=== PATIENT | male | born 1955 | race Caucasian/White ===

== ENCOUNTER 2019-12-28 10:32 | Emergency (ER) | payer OTHER, SELFPAY ==
[2019-12-28 10:42] VITALS: BP 138/59; PULSE 72; RESP 20; O2SAT 92; BMI 33.5
[2019-12-28 11:06] VITALS: RESP 18
--- NOTE | 2019-12-28 11:07 | ED_ITS ---
Entered by Destiny Gavin, acting as scribe for Henry Coles MD, [facility] Dec 28, 2019 10:32 HPI - Extremity Problem General: Chief complaint: Extremity Problem,Nontraumatic Stated complaint: Right arm no controll Time Seen by Provider: 12/28/19 11:07 Source: patient and RN notes reviewed Mode of arrival: ambulatory Limitations: no limitations History of Present Illness: HPI Narrative: 64 yo male presents to ED with complaints of R upper extremity pain, numbness and tingling. He said has no control over his arm when it shakes. He said it was not bad at first but it has worsened every day since that time. He said it begins with his arm jumping around, it will curl up and his fingers will layer over themselves. He said he has pain in his wrist and fingers when they begin to curl up. He denies having a stroke but he does have 3 stents in his heart and 6 stents in his leg. Complaint: extremity pain (R upper) Onset (ago): day(s) (5) Pain Consistency: constant Location: right and upper extremity Quality: aching Radiation: none Relieving factors: nothing Exacerbating factors: nothing Associated symptoms: Reports no associated symptoms and chest pain; Deny fever(s) or rash Review of Systems General: Reports: 10 or more systems reviewed and unremarkable except in HPI and below Const: Denies: fever, chills or body aches Eyes: Reports: blind spots; Denies: change in vision or blurry vision ENMT: Denies: throat pain, enlarged tonsils, painful swallowing, hoarseness, mouth pain or swelling of lips/tongue Card: Reports: chest pain; Denies: palpitations, irregular heart rhythm, edema or swelling of feet/ankles Resp: Denies: shortness of breath or productive cough GI: Denies: abdominal pain, nausea or vomiting : Denies: flank pain, painful urination, urinary frequency, urinary urgency or urinary hesitancy Musc: Denies: neck pain, back pain or extremity swelling Skin/Breast: Denies: rash, itching or redness Neuro: Denies: headache, numbness in extremities or weakness in extremities Endo: Denies: excessive urination, excessive thirst or tired all the time PFS ED PFSH: Social History Smoking and tobacco status: current some day smoker Physical Exam Const: COMMON NORMALS: no apparent distress, average body habitus, oriented x3, no limitations, healthy appearing, alert and well nourished HENMT: COMMON NORMALS: normocephalic, head/scalp atraumatic and moist oral mucous membranes HEAD & SCALP: normocephalic and atraumatic Eye: COMMON NORMALS: PERRL, EOMs intact bilaterally, conjunctivae normal and no scleral icterus CONJUNCTIVA: Yes conjunctivae normal PUPIL: Yes PERRL Neck/C-Spine: COMMON NORMALS: full ROM, supple, no meningeal signs, no JVD and no carotid bruits Chest: COMMONS NORMALS: inspection of chest normal and palpation of chest normal Resp: COMMON NORMALS: normal respiratory effort, no retractions, no use of accessory muscles, clear to auscultation bilaterally and percussion normal AUSCULTATION: clear to auscultation bilaterally and wheezes PERCUSSION: percussion normal Cardio: COMMON NORMALS: no JVD, regular rate, regular rhythm, S1 normal heart sound, S2 normal heart sound, no gallops, no clicks, no murmurs, no rub and peripheral pulses 2+ throughout RATE: regular rate RHYTHM: regular rhythm HEART SOUNDS: S1 normal and S2 normal PERIPHERAL PULSES: pulses 2+ throughout GI: COMMON NORMALS: normal to inspection, nondistended, normoactive bowel sounds, soft to palpation, non-tender, no hepatosplenomegaly, no masses and no bruits PALPATION: Yes soft and Yes no hepatosplenomegaly : COMMON NORMALS: Yes no CVA tenderness BLADDER/KIDNEY EXAM: Yes no CVA tenderness Back/Pelvis: COMMON NORMALS: no CVA tenderness Extremity: COMMON NORMALS: normal to inspection, full ROM, normal capillary refill, no calf tenderness and no pedal edema OTHER: during examination the patient had spasmodic/tremor-like movements of his right upper extremity. Fingers spasms which look like carpopedal spasm Neuro: COMMON NORMALS: oriented x3 SENSORIUM/ORIENTATION: Yes alert MENINGEAL SIGNS: Yes no meningeal signs Skin: COMMON NORMALS: no rashes or lesions noted, no wounds, skin turgor normal, no jaundice, no petechiae and no mottling GENERAL SKIN EXAM: no rashes or lesions noted and turgor normal Course Vital Signs: Vital signs: Vital Signs Pulse Rate 72 02/16/20 10:42 Respiratory Rate 18 12/28/19 11:06 Blood Pressure 138/59 12/28/19 10:42 Pulse Oximetry 92 12/28/19 10:42 MDM - Extremity (Nontraumatic) MDM Narrative: Medical decision making narrative: Patient with tremors/spasms of his RUE. Electrolytes were generally ok, but his glucose was significantly elevated. No signs of DKA or HONK. He does have worsening renal function but he follows with nephrology. He was given IV fluids and discharged to f/u with his PCP. A referral to neurology was made and case management will f/u with that. Medical Records: Attestation: I reviewed the patient's medical records. Lab Data: Attestation: I reviewed the patient's lab results. Labs: Lab Results 12/28/19 12/28/19 Range/Units 11:25 11:25 WBC 5.8 (4.0-10.0) 10^3/ uL RBC 4.90 (4.1-5.3) 10^6/u L Hgb 14.0 (11.7-16.6) g/dL Hct 43.8 (42.0-52.0) % MCV 89.4 (80-94) fL MCH 28.6 (28.0-34.0) pg MCHC 32.0 (30.0-36.0) g/dL RDW 13.3 (12.1-15.1) % Plt Count 45 L (130-400) 10^3/c mm MPV 11.7 H (7.4-10.4) fL Neut % (Auto) 57.7 % Lymph % (Auto) 31.3 % [place] % (Auto) 6.8 % Eos % (Auto) 3.3 % Baso % (Auto) 0.7 % Neut # (Auto) 3.4 (1.8-7.7) 10^3/u L Lymph # (Auto) 1.8 (0.8-4.8) 10^3/u L [place] # (Auto) 0.4 (0.2-0.9) 10^3/u L Eos # (Auto) 0.2 (0.0-0.8) 10^3/u L Baso # (Auto) 0.0 (0.0-0.1) 10^3/u L Nucleated RBC % (a uto) 0 % Nucleated RBCs # 0.0 /100WBC Sodium 129 L (136-145) mmol/L Potassium 4.9 (3.5-5.1) mmol/L Chloride 92 L (98-107) mmol/L Carbon Dioxide 22 (22-29) mmol/L Anion Gap 19.9 H (5-19) BUN 42 H (8-23) mg/dL Creatinine 2.4 H (0.7-1.2) mg/dL GFR Calculation 27.6 L (90-130) mL/min Glucose 668 H* (65-115) mg/dL Calcium 10.1 (8.5-10.5) mg/dL Phosphorus 4.0 (2.5-4.5) mg/dL Magnesium 2.0 (1.7-2.3) mg/dL Total Bilirubin 0.4 (0.15-1.2) mg/dL AST 28 (0-40) U/L ALT 33 (0-41) U/L Alkaline Phosphata se 71 (40-130) IU/L Creatine Kinase 179 (39-308) U/L Total Protein 7.7 (6.6-8.7) g/dL Albumin 4.4 (3.5-5.2) g/dL Globulin 3.3 (1.3-4.6) g/dL TSH 3.02 (0.27-4.20) uIU/ mL Imaging Data^: CT Head: Radiologist's impression: [place] [address] CT Scan Report Signed Patient: Lilly Brown #: [id number] : 7Acct#:[id number] Age/Sex: 64 / MADM Date: 12/28/19 Loc: ERRoom/Bed: Attending Dr: Ordering Provider/Ordering MD: Henry Coles MD, [facility] Date of Service: 12/28/19 Procedure(s): CT head wo con* [id number] Accession Number(s): [id number] Report Number: [id number] PROCEDURE INFORMATION: Exam: CT Head Without Contrast Exam date and time: 12/28/2019 11:37 AM Age: 64 years old Clinical indication: Weakness, extremity; Right; Patient HX: RT arm shaking; Additional info: Right arm weakness TECHNIQUE: Imaging protocol: Computed tomography of the head without contrast. Total DLP: 841.17 mGy-cm Radiation optimization: All CT scans at this facility use at least one of these dose optimization techniques: automated exposure control; mA and/or kV adjustment per patient size (includes targeted exams where dose is matched to clinical indication); or iterative reconstruction. COMPARISON: No relevant prior studies available. FINDINGS: Brain: Normal. No hemorrhage. Unremarkable white matter. No mass effect. Ventricles: Normal. No ventriculomegaly. Bones/joints: Unremarkable. No acute fracture. 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 Mastoid air cells: Visualized mastoid air cells are well aerated. Soft tissues: Unremarkable. Vasculature: There is moderate intracranial vascular calcification. CT/CT head wo con* [id number] IMPRESSION: 1. No acute intracranial findings identified. Please refer to incidental findings in body of report. 2. 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 Radiation Dose CTDIVOL = (mGy): DLP = 841.17 (mGy-cm) Dictated By:Kedar Singh Signed By:Jean Singhigned Date/Time:12/28/19 1153 DD/ Discharge Plan Discharge Patient Disposition: Home, Self-Care Clinical Impression: Muscle tremor Condition: Stable Prescriptions: Continued atorvastatin 80 mg Tablet 80 mg PO DAILY RF: 0 acetaminophen 325 mg Tablet 325 mg PO QID PRN (Reason: Pain) RF: 0 Aspir-81 81 mg Tablet,Delayed Release (Dr/Ec) 81 mg PO DAILY RF: 0 albuterol sulfate 90 mcg/actuation Hfa Aerosol Inhaler 2 puff INHALATION QID PRN (Reason: Shortness Of Breath) RF: 0 pentoxifylline 400 mg Tablet Extended Release 400 mg PO TID RF: 0 ferrous sulfate 325 mg (65 mg iron) Tablet 325 mg PO DAILY RF: 0 gabapentin 300 mg Capsule 300 mg PO TID RF: 0 omeprazole 20 mg Capsule,Delayed Release(Dr/Ec) 20 mg PO DAILY RF: 0 furosemide 20 mg Tablet 20 mg PO QAM RF: 0 losartan 100 mg Tablet 50 mg PO DAILY RF: 0 loratadine 10 mg Tablet 10 mg PO DAILY PRN (Reason: ALLERGIES) RF: 0 Multi-Vitamin HP/Minerals Capsule 1 cap PO DAILY RF: 0 cholecalciferol (vitamin D3) 2,000 unit Tablet 2,000 unit PO DAILY RF: 0 lidocaine 5 % Ointment See Rx Instructions .ROUTE .COMPLEX RF: 0 Combivent Respimat 20-100 mcg/actuation Mist 1 puff INHALATION QID RF: 0 Changed metoprolol tartrate 50 mg Tablet 25 mg PO BID Qty: 0 RF: 0 Discharge Orders: Discharge Order (Routine); Ordered 12/28/19 Ordered By: Henry Coles Referrals: Fer Musa DO [Family Provider] - 1-3 days Patient Instructions: Muscle Spasm (ED) Activity Restrictions/Additional Instructions: Return for any new or worsening symptoms. Follow-up with your primary care provider within 3 days. Follow-up with the neurologist as scheduled. Case management will contact you to schedule an appointment with neurology for your tremors. Coding Level of Care Code ED National Account Executive for Chg 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 The documentation recorded by the Leslye ramirez Valerie R, accurately reflects the service I personally performed and the decisions made by Sharyn hawley Adegoke I, MD, [facility] Dec 28, 2019 10:32
--- NOTE | 2019-12-28 11:08 | PC.NURSE ---
Pt stated his right arm has been shaking, and he doesn't have conrol over it. Pt states it started off small, but has slowly been getting worse. Pt's right arm muscles are twitching from his shoulder down to his hand. The episodes are lasting about 30 seconds, and then stop.
--- NOTE | 2019-12-28 11:19 | CTR_ITS ---
PROCEDURE INFORMATION: Exam: CT Head Without Contrast Exam date and time: 12/28/2019 11:37 AM Age: 64 years old Clinical indication: Weakness, extremity; Right; Patient HX: RT arm shaking; Additional info: Right arm weakness TECHNIQUE: Imaging protocol: Computed tomography of the head without contrast. Total DLP: 841.17 mGy-cm Radiation optimization: All CT scans at this facility use at least one of these dose optimization techniques: automated exposure control; mA and/or kV adjustment per patient size (includes targeted exams where dose is matched to clinical indication); or iterative reconstruction. COMPARISON: No relevant prior studies available. FINDINGS: Brain: Normal. No hemorrhage. Unremarkable white matter. No mass effect. Ventricles: Normal. No ventriculomegaly. Bones/joints: Unremarkable. No acute fracture. 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 Mastoid air cells: Visualized mastoid air cells are well aerated. Soft tissues: Unremarkable. Vasculature: There is moderate intracranial vascular calcification. CT/CT head wo con* [id number] IMPRESSION: 1. No acute intracranial findings identified. Please refer to incidental findings in body of report. 2. 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 Radiation Dose CTDIVOL = (mGy): DLP = 841.17 (mGy-cm)
[2019-12-28 11:34] LABS: Basophils % 0.7 %; Eosinophils # 0.2 10^3/uL (0.0-0.8); Eosinophils % 3.3 %; Hematocrit 43.8 % (42.0-52.0); Lymphocytes # 1.8 10^3/uL (0.8-4.8); Lymphocytes % 31.3 %; Mean Corpuscular Hemoglobin 28.6 pg (28.0-34.0); Mean Corpuscular Volume 89.4 fL (80-94); Mean Platelet Volume 11.7 fL (7.4-10.4); Monocytes # 0.4 10^3/uL (0.2-0.9); Monocytes % 6.8 %; Neutrophils # 3.4 10^3/uL (1.8-7.7); Neutrophils % 57.7 %; Nucleated Red Blood Cells % 0 %; Platelet Count 45 10^3/cmm (130-400); Red Cell Distribution Width 13.3 % (12.1-15.1); White Blood Count 5.8 10^3/uL (4.0-10.0)
[2019-12-28 11:54] LABS: Slide Review Slide Review Perform
[2019-12-28 12:08] LABS: Alanine Aminotransferase 33 U/L (0-41); Albumin Level 4.4 g/dL (3.5-5.2); Alkaline Phosphatase 71 IU/L (40-130); Anion Gap 19.9 (5-19); Aspartate Amino Transferase 28 U/L (0-40); Blood Urea Nitrogen 42 mg/dL (8-23); Calcium 10.1 mg/dL (8.5-10.5); Carbon Dioxide 22 mmol/L (22-29); Chloride 92 mmol/L (98-107); Creatine Phosphokinase 179 U/L (39-308); Globulin 3.3 g/dL (1.3-4.6); Glomerular Filtration Rate 27.6 mL/min (90-130); Potassium 4.9 mmol/L (3.5-5.1); Sodium 129 mmol/L (136-145); Thyroid Stimulating Hormone 3.02 uIU/mL (0.27-4.20); Total Bilirubin 0.4 mg/dL (0.15-1.2); Total Protein 7.7 g/dL (6.6-8.7)
[2019-12-28 12:15] LABS: Glucose 668 mg/dL (65-115)
--- NOTE | 2019-12-28 12:15 | PC.NURSE ---
Critical Lab Value Blood Glucose 668
[2019-12-28] MEDS: sodium chloride 0.9% 1,000 ML 999 ML IV (12:36)
[2019-12-28] MEDS: metoprolol tartrate 25 mg Tablet PO (15:34)
[2019-12-28 15:40] VITALS: BP 156/86; PULSE 69; RESP 18; O2SAT 95
--- NOTE | 2019-12-31 11:02 | DCPLANNER ---
manager of application development had message to schedule a follow up appointment for patient with Dr. Lugo. manager of application development called the office of Dr. Lugo, spoke with Jesenia, a follow up appointment is scheduled for Monday, February 03, 2020 at 8:30. manager of application development was unable to reach patient to inform him of the scheduled appointment. Patient has been admitted to the hospital, case coordinator let in patient social services manager know of the appointment time and asked if they could inform patient of the scheduled appointment. [facility], [facility] inform [facility] that patient was seen in the ED and of the scheduled appointment.
--- NOTE | 2020-02-17 15:07 | DCPLANNER ---
Addendum entered by Antonella Khan 05/05/20 10:09: Patient cancelled appointment due to the issue being resolved. Original Note: Patients appointment scheduled for 02.03.[address] Lugo was rescheduled for , April 01, 2020 at 3:00, patient is aware that appointment has been rescheduled.
== END 2019-12-28 15:40 | disposition home or self-care (01) ==
PROVIDERS: Emergency Provider Family Medicine; Family Provider Emergency Medicine Emergency Medical Services
DX: R25.1 Tremor, unspecified (principal); F17.200 Nicotine dependence, unspecified, uncomplicated
CPT/HCPCS: 36415; 70450; 80053; 82550; 83735; 84100; 84443; 85025; 96360; 96361; 99283; J7030

== ENCOUNTER 2019-12-30 12:27 | Inpatient (IN) | payer OTHER, SELFPAY ==
--- NOTE | 2019-12-30 12:42 | USCV_ITS ---
Jeffrey Brown Age: 64 Gender: M : 1955 Exam Date: 12/30/2019 13:12 Ordering Phys: Dell Winters Technologist: Roby Martin [place] [facility] [place] Indication: RT ARM PAIN AND SWELLING HISTORY: Upper extremity swelling. PROCEDURES: Venous duplex imaging was performed in only the right upper extremity. The following venous structures were evaluated: internal jugular vein, subclavian vein, axillary vein, and brachial veins. In addition, the basilic vein, cephalic vein, radial vein, and ulnar vein. FINDINGS: No evidence of deep vein thrombosis or superficial thrombophlebitis in the right upper extremity. The veins were found to be easily compressible with spontaneous flow CONCLUSIONS 1. No evidence of venous thrombosis in the above-mentioned identifiable veins. Dr Sudeep Cotto MD FAC (Electronically Signed) Final Date: 31 December 2019 09:30 S
[2019-12-30 12:47] VITALS: BP 107/62; PULSE 66; RESP 16; TEMP 36.8; O2SAT 96; BMI 33.5
[2019-12-30 14:13] LABS: Basophils % 0.4 %; Eosinophils # 0.3 10^3/uL (0.0-0.8); Eosinophils % 3.8 %; Hematocrit 45.6 % (42.0-52.0); Hemoglobin 14.5 g/dL (11.7-16.6); Lymphocytes # 1.7 10^3/uL (0.8-4.8); Lymphocytes % 24.6 %; Mean Corpuscular HGB Conc 31.8 g/dL (30.0-36.0); Mean Corpuscular Hemoglobin 28.4 pg (28.0-34.0); Mean Corpuscular Volume 89.4 fL (80-94); Monocytes # 0.4 10^3/uL (0.2-0.9); Monocytes % 5.5 %; Neutrophils # 4.4 10^3/uL (1.8-7.7); Neutrophils % 65.6 %; Nucleated Red Blood Cells % 0 %; Platelet Count 80 10^3/cmm (130-400); Red Cell Distribution Width 13.5 % (12.1-15.1); White Blood Count 6.8 10^3/uL (4.0-10.0)
--- NOTE | 2019-12-30 14:16 | ED_ITS ---
Entered by Destiny Gavin, acting as scribe for Harry Lvoe DO HPI - General Adult General: Chief complaint: General Medical Stated complaint: right arm pain/swelling Time Seen by Provider: 12/30/19 13:58 Source: patient, family and RN notes reviewed Mode of arrival: ambulatory Limitations: physical limitation (L BKA) History of Present Illness: HPI narrative: 64 yo male presents to ED with complaints of swelling and spasms in his R arm. He said when his R arm has a spasm he will have pain in his R shoulder as well. The patient was seen here on 12.28.2019 for the same problem. complaint: R arm spasms Onset (ago): day(s) (7) Location: right and upper extremity Radiation: extremity (R shoulder) Severity: severe Quality: aching and sharp Pain Consistency: intermittent Relieving factors: medication Exacerbating factors: none and other (spasmatic) Associated symptoms: Reports no associated symptoms Treatments prior to arrival: none Review of Systems General: Reports: 10 or more systems reviewed and unremarkable except in HPI and below PFSH ED PFSH: Social History Smoking and tobacco status: current some day smoker Physical Exam 2 Const: COMMON NORMALS: no apparent distress, average body habitus, oriented x3, no limitations, healthy appearing, alert and well nourished GENERAL APPEARANCE: not well kempt HENMT: COMMON NORMALS: normocephalic, head/scalp atraumatic, hearing grossly normal bilaterally, external ears normal, EAC's normal, TM's normal bilaterally, external nose normal, nasal mucous membranes and turbinates normal, moist oral mucous membranes, oropharynx normal, dentition normal and gingiva normal HEAD & SCALP: normocephalic and atraumatic NOSE: external nose normal and nasal mucous membranes and turbinates normal EXTERNAL EAR: Yes external ears normal EXTERNAL AUDITORY CANAL: EAC's normal TYMPANIC MEMBRANE: TM's normal bilaterally Eye: COMMON NORMALS: PERRL, EOMs intact bilaterally, conjunctivae normal, no scleral icterus, no papilledema, normal visual wray by confrontation and fundi normal bilaterally CONJUNCTIVA: Yes conjunctivae normal PUPIL: Yes PERRL DIRECT OPHTHALMOSCOPY: Yes no papilledema and Yes fundi normal bilaterally Neck/C-Spine: COMMON NORMALS: full ROM, no lymphadenopathy, supple, no meningeal signs, no JVD, thyroid normal and no carotid bruits THYROID: thyroid normal Chest: COMMONS NORMALS: inspection of chest normal and palpation of chest normal Resp: COMMON NORMALS: normal respiratory effort, no retractions, no use of accessory muscles, clear to auscultation bilaterally and percussion normal AUSCULTATION: clear to auscultation bilaterally PERCUSSION: percussion normal Cardio: COMMON NORMALS: no JVD, regular rate, regular rhythm, S1 normal heart sound, S2 normal heart sound, no gallops, no clicks, no murmurs, no rub and peripheral pulses 2+ throughout RATE: regular rate RHYTHM: regular rhythm HEART SOUNDS: S1 normal and S2 normal PERIPHERAL PULSES: pulses 2+ throughout GI: COMMON NORMALS: normal to inspection, nondistended, normoactive bowel sounds, soft to palpation, non-tender, no hepatosplenomegaly, no masses and no bruits PALPATION: Yes soft and Yes no hepatosplenomegaly : COMMON NORMALS: Yes no CVA tenderness BLADDER/KIDNEY EXAM: Yes no CVA tenderness Back/Pelvis: COMMON NORMALS: no CVA tenderness, thoracic and lumbar spine normal to inspection, no thoracic nor lumbar tenderness, thoraco-lumbar ROM normal and straight leg raise negative bilaterally Extremity: COMMON NORMALS: normal to inspection, full ROM, normal capillary refill, no joint enlargement, no calf tenderness and no pedal edema LEFT LOWER EXTREMITY: Yes knee joint (L BKA) Neuro: COMMON NORMALS: oriented x3 SENSORIUM/ORIENTATION: Yes alert MENINGEAL SIGNS: Yes no meningeal signs Psych: APPEARANCE: No well kempt Skin: COMMON NORMALS: no rashes or lesions noted, no wounds, skin turgor normal, no jaundice, no petechiae and no mottling GENERAL SKIN EXAM: no rashes or lesions noted and turgor normal Course Vital Signs: Vital signs: Vital Signs Temperature 98.2 F 12/30/19 12:47 Pulse Rate 66 12/30/19 12:47 Respiratory Rate 16 12/30/19 12:47 Blood Pressure 107/62 12/30/19 12:47 Pulse Oximetry 96 12/30/19 12:47 [facility] [place] - General Adult Lab Data: Labs: Lab Results 12/30/19 12/30/19 12/30/19 Range/Units 14:07 14:07 14:07 WBC 6.8 (4.0-10.0) 10^3/ uL RBC 5.10 (4.1-5.3) 10^6/u L Hgb 14.5 (11.7-16.6) g/dL Hct 45.6 (42.0-52.0) % MCV 89.4 (80-94) fL MCH 28.4 (28.0-34.0) pg MCHC 31.8 (30.0-36.0) g/dL RDW 13.5 (12.1-15.1) % Plt Count 80 L (130-400) 10^3/c mm MPV 11.0 H (7.4-10.4) fL Neut % (Auto) 65.6 % Lymph % (Auto) 24.6 % [place] % (Auto) 5.5 % Eos % (Auto) 3.8 % Baso % (Auto) 0.4 % Neut # (Auto) 4.4 (1.8-7.7) 10^3/u L Lymph # (Auto) 1.7 (0.8-4.8) 10^3/u L [place] # (Auto) 0.4 (0.2-0.9) 10^3/u L Eos # (Auto) 0.3 (0.0-0.8) 10^3/u L Baso # (Auto) 0.0 (0.0-0.1) 10^3/u L Nucleated RBC % (a uto) 0 % Nucleated RBCs # 0.0 /100WBC PT 14.30 H (10.5-13.3) SECO NDS INR 1.07 (0.8-1.2) APTT 28.6 (23.9-36.7) SECO NDS D-Dimer 0.54 (0-0.59) ug/mIFE U Sodium 129 L (136-145) mmol/L Potassium 4.8 (3.5-5.1) mmol/L Chloride 95 L (98-107) mmol/L Carbon Dioxide 19 L (22-29) mmol/L Anion Gap 19.8 H (5-19) BUN 33 H (8-23) mg/dL Creatinine 2.0 H (0.7-1.2) mg/dL GFR Calculation 34.0 L (90-130) mL/min Glucose 535 H* (65-115) mg/dL Calcium 10.4 (8.5-10.5) mg/dL Total Bilirubin 0.6 (0.15-1.2) mg/dL AST 32 (0-40) U/L ALT 33 (0-41) U/L Alkaline Phosphata se 73 (40-130) IU/L Total Protein 7.9 (6.6-8.7) g/dL Albumin 4.3 (3.5-5.2) g/dL Globulin 3.6 (1.3-4.6) g/dL Discharge Plan Discharge Patient Disposition: Admitted As Inpatient Clinical Impression: Muscle tremor, Diabetes mellitus, new onset Condition: Fair Referrals: Fer Musa DO [Primary Care Provider] - Coding Level of Care Code ED Gasoline Catalyst Operator for Chg 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 The documentation recorded by the Leslye ramirez Valerie R, accurately reflects the service I personally performed and the decisions made by , Haryr Love DO Dec 30, 2019 12:27
[2019-12-30 14:28] LABS: Alanine Aminotransferase 33 U/L (0-41); Albumin Level 4.3 g/dL (3.5-5.2); Alkaline Phosphatase 73 IU/L (40-130); Anion Gap 19.8 (5-19); Aspartate Amino Transferase 32 U/L (0-40); Blood Urea Nitrogen 33 mg/dL (8-23); Calcium 10.4 mg/dL (8.5-10.5); Carbon Dioxide 19 mmol/L (22-29); Chloride 95 mmol/L (98-107); Globulin 3.6 g/dL (1.3-4.6); Potassium 4.8 mmol/L (3.5-5.1); Sodium 129 mmol/L (136-145); Total Bilirubin 0.6 mg/dL (0.15-1.2); Total Protein 7.9 g/dL (6.6-8.7)
[2019-12-30 14:42] LABS: Glucose 535 mg/dL (65-115)
[2019-12-30 14:56] LABS: INR 1.07 (0.8-1.2)
[2019-12-30 15:00] LABS: Partial Thromboplastin Time 28.6 SECONDS (23.9-36.7)
[2019-12-30 15:01] LABS: D Dimer 0.54 ug/mIFEU (0-0.59)
[2019-12-30] MEDS: orphenadrine 30 mg/mL Inj 2 mL 60 MG IV (15:14)
[2019-12-30] MEDS: LORazepam 1 mg Tablet 2 MG PO (15:57)
[2019-12-30 17:47] LABS: ABG PCO2 40.8 mmHg (35-45); ABG PH Result 7.33 (7.35-7.45); Arterial Blood Gas Hematocrit 45.7 % (42-52); Blood Gas Allen Test Pos; Blood Gas Sample Site Radial, left; Blood Gas Sample Type Arterial; HCO3 ABG 21.7 mmol/L (22-26); Oxygen Device ROOM AIR; PO2 ABG 77.9 mmHg (80.0-100.0)
[2019-12-30] MEDS: sodium chloride 0.9% 1,000 ML 999 ML IV (17:48)
[2019-12-30 17:49] VITALS: RESP 16
[2019-12-30] MEDS: morphine 4 mg/mL SDV 1 mL 2 MG IVP (17:49)
[2019-12-30 18:10] LABS: Ketone (Acetest) Serum Negative (Negative)
--- NOTE | 2019-12-30 18:37 | PM.HP ---
Providers/Chief Complaint Admitting Physician: Pasquale Lentz Primary Care Provider: Fer Musa DO Chief Complaint: new onset diabetes History of Present Illness Jeffrey Brown is a 64 year old male with history of peripheral vascular disease, status post left lower extremity amputation, CAD status post stenting, history of DVT in December 2018, previously on anticoagulation, HTN, HLD, COPD return to the emergency department after recent visit due to spasms of right shoulder, right arm going on for 5 days. They come on and off spontaneously, lasting several minutes, resolving by themselves, without specific trigger, but have been keeping him up at night. He denies history of prior seizure. Denies history of CVA. Plain CT head performed during his prior visit on 12/28 without finding of mass-effect, with unremarkable white matter, no hemorrhage. No obvious prior CVA reported. He denies drinking significant amounts of alcohol, although he does drink occasionally on Sunday during football games. Last time was on Sunday when he had 4-1/2 beers. Denies any drug use. In ER noted with hyponatremia sodium 129, normal potassium, with severe hyperglycemia 535. Negative serum ketones. Normal calcium level. He denies having known diabetes history, although was previously told about having high glucose. Review of Systems Const: Denies: fever, chills, body aches or malaise Eyes: Denies: change in vision or eye redness ENMT: Denies: throat pain, oral sores/lesions or ear pain Card: Denies: chest pain, edema, pre-syncope or shortness of breath on exertion Resp: Denies: shortness of breath, productive cough, change in phlegm color or coughing up blood GI: Denies: abdominal pain, nausea, vomiting, diarrhea, constipation, blood in stool or black tarry stool : Denies: flank pain, difficulty urinating, urinary frequency or blood in urine Musc: Denies: back pain, joint swelling or redness Skin/Breast: Denies: rash, sores or new lesion Neuro: Denies: headache, numbness in extremities, weakness in extremities, dizziness, confusion or seizure-like activity Endo: Denies: excessive urination or excessive thirst Jesús/Lymph: Denies: easy bleeding or purpura All/Imm: Denies: hives, throat swelling or tongue swelling Medications/Allergies Home Medications Medication Instructions Recorded Confirmed Last Taken Type metoprolol tartrate 50 mg PO BID 12/30/19 12/30/19 12/30/19 History senna 8.6 mg PO DAILY PRN 12/30/19 12/30/19 Unknown History Allergies Allergy/AdvReac Type Severity Reaction Status Date / Time No Known Allergies Allergy Verified 12/28/19 10:49 PFSH Acute PFSH: Medical History CAD (coronary artery disease) COPD (chronic obstructive pulmonary disease) History of DVT (deep vein thrombosis) December 2018 PVD (peripheral vascular disease) Surgical History H/O hernia repair History of femoropopliteal bypass Hx of BKA Family History Other Diabetes Social History Smoking and tobacco status: former smoker Quit status (tobacco): has quit using tobacco Year quit tobacco: 1 year ago Alcohol intake: current Alcohol intake frequency: few times a month Alcohol use comment: Reports on Sundays has some beers with football games. Last time was 4 and half beers on Sunday. Lives independently: Yes Household members: significant other Marital status: Single Current occupational status: retired Vitals/I&O/Wt Last Vital Signs Temp 98.2 F 12/30/19 12:47 Pulse 66 12/30/19 12:47 Resp 16 12/30/19 17:49 BP 107/62 12/30/19 12:47 Pulse Ox 96 12/30/19 12:47 Weight last 48 hrs Weight 108.862 kg Physical Exam Const: COMMON NORMALS: no apparent distress and oriented x3 NUTRITIONAL APPEARANCE: obese OTHER: Pleasant, conversant. HENMT: COMMON NORMALS: oropharynx normal Neck/C-Spine: COMMON NORMALS: no JVD Resp: COMMON NORMALS: normal respiratory effort and clear to auscultation bilaterally AUSCULTATION: clear to auscultation bilaterally Cardio: COMMON NORMALS: no JVD, regular rhythm, S1 normal heart sound, S2 normal heart sound and no murmurs RHYTHM: regular rhythm HEART SOUNDS: S1 normal and S2 normal GI: COMMON NORMALS: normal to inspection, nondistended, normoactive bowel sounds, soft to palpation and non-tender PALPATION: Yes soft Extremity: COMMON NORMALS: no joint enlargement and no pedal edema OTHER: Left BKA Neuro: COMMON NORMALS: oriented x3 and moves all extremities OTHER: Intermittent episodes of spasms in his left shoulder, arm, forearm and hand. No clear trigger. These resolve on their own within less than a minute. Skin: COMMON NORMALS: no rashes or lesions noted GENERAL SKIN EXAM: no rashes or lesions noted Data : 12/30/19 14:07 12/30/19 14:07 A&P Assessment and plan (1) Muscle spasm of right shoulder: Recurrent spasms of the right shoulder, arm and hand. These appear intermittently, without particular trigger, and resolve on their own after less than a minute. He reports they have been going on for 5 days, and he is been having difficult time sleeping at night due to them waking him up. He was here on the , at that time CK was normal. We will recheck. He denies history of seizure or CVA. CT head on the done without contrast did not show obvious past CVA, no mass-effect or bleeding. He occasionally has alcohol, but only on Sundays, and last time had 4-1/2 beers last Sunday. Reports only does it when watching football. Doubt that this is alcohol withdrawal seizures. He has intact sensation in the right arm, however, says his shoulder has been getting sore, as well as soreness spreading to his forearm, wrist and hand. There is some swelling there as well. There is some soreness on palpation of his shoulder, however, no pain on passive motion in the shoulder, elbow or wrist joint. The origin of the muscle spasm at this time is not clear. He does not have sensory levels or sensory loss, no significant persistent pain other than muscle soreness. Will assess by CT cervical spine. Appreciate neurology consultation. Discussed and will order additional assessment by MRI brain and EEG. Check magnesium. Status: Acute Code(s): M62.838 - Other muscle spasm (2) Diabetes mellitus, new onset: Severe hyperglycemia presentation 535, although better compared to 12/28 at which point was 668. Is not aware of prior history of diabetes. A1c was 6.1 back in 2017. Nothing more recent. Does have COPD and suspect may receive steroids occasionally. At this time will check A1c. We will start him on insulin sliding scale. Serum ketones negative. Status: Acute Code(s): E11.9 - Type 2 diabetes mellitus without complications Additional A&P Information Pseudohyponatremia with severe hyperglycemia. Chronic thrombocytopenia: Unclear etiology. Will need additional follow-up. Chronic kidney disease: Creatinine is 2, which is better compared to creatinine 2.4 on 12/28. Will hold his losartan for now. Possible component of acute kidney injury on chronic kidney disease. Attestations Medical Necessity Statement*: Place in observation. 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
--- NOTE | 2019-12-30 18:54 | CTR_ITS ---
PROCEDURE INFORMATION: Exam: CT Cervical Spine Without Contrast Exam date and time: 12/30/2019 6:59 PM Age: 64 years old Clinical indication: Other: RT arm shaking/spasms; Additional info: R arm muscle spasms TECHNIQUE: Imaging protocol: Computed tomography images of the cervical spine without contrast. Radiation optimization: All CT scans at this facility use at least one of these dose optimization techniques: automated exposure control; mA and/or kV adjustment per patient size (includes targeted exams where dose is matched to clinical indication); or iterative reconstruction. COMPARISON: No relevant prior studies available. FINDINGS: Limitations: Study is somewhat limited by patient motion. Vertebrae: There also mild degenerative changes in the facets bilaterally at C2-C3. There is some degenerative change in the anterior atlantoaxial joint. No fracture is identified. Discs/Spinal canal/Neural foramina: There is degenerative change in the cervical spine with some posterior osteophytes at the C3-C4 level which encroaches upon the left neural foramen. There is also disc space narrowing and posterior osteophyte at C5-C6 and C6-C7 with narrowing of the neural foramina on both sides the. The calcified disc osteophyte complex causes mild stenosis at C5-C6 narrowing the sagittal diameter of the canal to 9 mm and moderate stenosis at C6-C7, narrowing the diameter of the canal to approximately 7 mm. Soft tissues: The prevertebral soft tissues are unremarkable. Lungs: Lung apices are normal. CT/CT cervical spin wo con* [id number] IMPRESSION: Degenerative changes in the cervical spine as described. Radiation Dose CTDIVOL = (mGy): DLP = 1070.06 (mGy-cm)
[2019-12-30 19:38] LABS: Creatine Phosphokinase 453 U/L (39-308)
[2019-12-30 21:45] VITALS: BP 182/100; PULSE 94; RESP 12; O2SAT 96
[2019-12-30 22:18] LABS: Estmated Average Glucose 269
--- NOTE | 2019-12-30 22:30 | PC.NURSE ---
FSBS 471
[2019-12-30 22:33] LABS: Glucose Point of Care 472 mg/dL (70-110)
[2019-12-30 23:00] VITALS: BP 146/78; PULSE 72; RESP 16; TEMP 37; O2SAT 96
[2019-12-30 23:31] LABS: Magnesium 2.2 mg/dL (1.7-2.3)
[2019-12-30] MEDS: heparin 5,000 unit/mL INJ 1 mL 5000 UNIT SUBCUT (23:31)
[2019-12-30] MEDS: gabapentin 300 mg Capsule PO (23:32)
[2019-12-31] VITALS (9 sets, daily range): BP systolic 126–150; BP diastolic 51–81; PULSE 64–89; RESP 16–20; TEMP 36.4–37.1; O2SAT 92–96
[2019-12-31] MEDS: sodium chloride 0.9% 1,000 ML 100 ML IV (00:59)
[2019-12-31 02:37] LABS: Glucose Point of Care 194 mg/dL (70-110)
[2019-12-31 06:06] LABS: Basophils % 0.3 %; Eosinophils # 0.2 10^3/uL (0.0-0.8); Eosinophils % 3.6 %; Hematocrit 41.1 % (42.0-52.0); Hemoglobin 13.6 g/dL (11.7-16.6); Lymphocytes # 1.8 10^3/uL (0.8-4.8); Lymphocytes % 28.7 %; Mean Corpuscular HGB Conc 33.1 g/dL (30.0-36.0); Mean Corpuscular Hemoglobin 28.5 pg (28.0-34.0); Mean Corpuscular Volume 86.2 fL (80-94); Mean Platelet Volume 10.4 fL (7.4-10.4); Monocytes # 0.4 10^3/uL (0.2-0.9); Monocytes % 5.7 %; Neutrophils # 3.9 10^3/uL (1.8-7.7); Neutrophils % 61.4 %; Nucleated Red Blood Cells % 0 %; Platelet Count 78 10^3/cmm (130-400); Red Blood Count 4.77 10^6/uL (4.1-5.3); Red Cell Distribution Width 13.6 % (12.1-15.1); White Blood Count 6.4 10^3/uL (4.0-10.0)
[2019-12-31 06:36] LABS: Alanine Aminotransferase 29 U/L (0-41); Albumin Level 3.9 g/dL (3.5-5.2); Alkaline Phosphatase 61 IU/L (40-130); Anion Gap 18.7 (5-19); Aspartate Amino Transferase 35 U/L (0-40); Blood Urea Nitrogen 30 mg/dL (8-23); Calcium 10.2 mg/dL (8.5-10.5); Carbon Dioxide 22 mmol/L (22-29); Chloride 102 mmol/L (98-107); Globulin 3.7 g/dL (1.3-4.6); Glucose 136 mg/dL (65-115); Potassium 3.7 mmol/L (3.5-5.1); Sodium 139 mmol/L (136-145); Total Bilirubin 0.5 mg/dL (0.15-1.2); Total Protein 7.6 g/dL (6.6-8.7)
[2019-12-31 06:39] LABS: Glucose Point of Care 186 mg/dL (70-110)
[2019-12-31] MEDS: atorvastatin 40 mg Tablet 80 MG PO (09:02)
[2019-12-31] MEDS: ferrous sulfate EC 325 mg Tablet PO (09:02)
[2019-12-31] MEDS: pantoprazole DR 40 mg Tablet PO (09:02)
[2019-12-31] MEDS: aspirin 81 mg EC Tablet PO (09:02)
[2019-12-31] MEDS: heparin 5,000 unit/mL INJ 1 mL 5000 UNIT SUBCUT ×2 (09:02→14:26)
[2019-12-31] MEDS: metoprolol tartrate 50 mg Tablet PO ×2 (09:02→17:46)
[2019-12-31] MEDS: gabapentin 300 mg Capsule PO ×3 (09:02→20:53)
[2019-12-31 11:33] LABS: Glucose Point of Care 312 mg/dL (70-110)
--- NOTE | 2019-12-31 14:48 | PC.NURSE ---
Pt down to neurology at this time for scheduled EEG.
--- NOTE | 2019-12-31 15:32 | P.CONIM_ITS ---
Providers/Reason For Consult Consulting Physican/Specialty*: Razo/Neurology Reason for Consult*: Abnormal movements Attending Physician: Pasquale Lentz Primary Care Provider: Fer Musa DO History of Present Illness History of Present Illness Jeffrey Brown is a 64 year old male who several days ago began to experience involuntary movements of his arm. These spasms were painful. He came to the ER and had an unremarkable evaluation and was discharged with plan for outpatient neurology followup. He came back to the ER 2 days later because the movements continued. He was admitted last night and I was consulted. He is presently in the EEG lab getting an EEG. He had a spell of involuntary movements of the right arm lasting 2 minutes after getting to the lab but before the EEG was hooked up. He states he last had an attack yesterday afternoon. He then had another attack which I was able to observe. He had retained conciousness. He head arrythmic irregular jerking movements of the right arm. He states this resulted in pain in the right shoulder and hand. He was able to terminate the attack by moving his right arm over to the left side of his body by pulling it with his left hand. During this period of movement the EEG was observed to have movement artifact without electroencephalographic seizure. Following termination of the clinical event there was no focal postictal slowing. He was to have an MRI earlier today, but he states he was not able to tolerate this because of claustrophobia. Notably he has been newly diagnosed with diabetes with blood sugars in the 500-600 range. Review of Systems General: Reports: 10 or more systems reviewed and unremarkable except in HPI and below Meds/Allergies Home Medications and Allergies Home Medications Medication Instructions Recorded Confirmed Type Combivent Respimat 1 puff INHALATION QID 12/28/19 12/30/19 History Multi-Vitamin HP/Minerals 1 cap PO DAILY 12/28/19 12/30/19 History acetaminophen 325 mg PO QID PRN 12/28/19 12/30/19 History albuterol sulfate 2 puff INHALATION QID PRN 12/28/19 12/30/19 History aspirin [Aspir-81] 81 mg PO DAILY 12/28/19 12/30/19 History atorvastatin 80 mg PO DAILY 12/28/19 12/30/19 History cholecalciferol (vitamin D3) 2,000 unit PO DAILY 12/28/19 12/30/19 History ferrous sulfate 325 mg PO DAILY 12/28/19 12/30/19 History furosemide 20 mg PO DAILY 12/28/19 12/30/19 History gabapentin 300 mg PO TID 12/28/19 12/30/19 History lidocaine See Rx Instructions .ROUTE .COMPLEX 12/28/19 12/30/19 History loratadine 10 mg PO DAILY PRN 12/28/19 12/30/19 History losartan 50 mg PO DAILY 12/28/19 12/30/19 History omeprazole 40 mg PO DAILY 12/28/19 12/30/19 History pentoxifylline 400 mg PO TID 12/28/19 12/30/19 History metoprolol tartrate 50 mg PO BID 12/30/19 12/30/19 History senna 8.6 mg PO DAILY PRN 12/30/19 12/30/19 History Allergies Allergy/AdvReac Type Severity Reaction Status Date / Time No Known Allergies Allergy Verified 12/28/19 10:49 Current Medications Current Medications Generic Name Dose Route Start Last Admin Trade Name Freq PRN Reason Stop Dose Admin Albuterol/Ipratropium 1 puff 12/31/19 08:00 12/31/19 12:59 Combivent Respimat INHALATION 1 puff QID.RESPIRATORY JADEN Administration Aspirin 81 mg 12/31/19 09:00 12/31/19 09:02 Aspirin Ec PO 81 mg DAILY JADEN Administration Atorvastatin Calcium 80 mg 12/31/19 09:00 12/31/19 09:02 Lipitor PO 80 mg DAILY JADEN Administration Ferrous Sulfate 325 mg 12/31/19 09:00 12/31/19 09:02 Ferrous Sulfate PO 325 mg DAILY JADEN Administration Gabapentin 300 mg 12/30/19 23:00 12/31/19 14:26 Neurontin PO 300 mg TID JADEN Administration Heparin Sodium (Beef Lung) 5,000 unit 12/30/19 23:00 12/31/19 14:26 Heparin SUBCUT 5,000 unit Q8H JADEN Administration Sodium Chloride 1,000 mls @ 100 mls/hr 12/30/19 17:30 12/31/19 14:24 Sodium Chloride 0.9% IV Not Given .Q10H JADEN Insulin Aspart 0 unit 12/30/19 21:36 12/31/19 12:09 Novolog SUBCUT 12 unit WM&BEDTIME JADEN Administration Protocol Metoprolol Tartrate 50 mg 12/31/19 09:00 12/31/19 09:02 Lopressor PO 50 mg BID JADEN Administration Morphine Sulfate 2 mg 12/30/19 17:25 12/30/19 17:49 Morphine IVP 2 mg Q4H PRN Administration SEVERE PAIN Multivitamins/Minerals 1 tab 12/31/19 09:00 12/31/19 09:13 Thera M Plus PO 1 tab DAILY JADEN Administration Non-Formulary Medication 400 mg 12/30/19 23:00 12/31/19 01:00 Pentoxifylline PO Not Given TID JADEN Pantoprazole Sodium 40 mg 12/31/19 09:00 12/31/19 09:02 Protonix PO 40 mg DAILY JADEN Administration PFSH Acute PFSH: Medical History CAD (coronary artery disease) COPD (chronic obstructive pulmonary disease) History of DVT (deep vein thrombosis) December 2018 PVD (peripheral vascular disease) Surgical History H/O hernia repair History of femoropopliteal bypass Hx of BKA Family History Other Diabetes Social History Smoking and tobacco status: former smoker Quit status (tobacco): has quit using tobacco Year quit tobacco: 1 year ago Alcohol intake: current Alcohol intake frequency: few times a month Lives independently: Yes Household members: significant other Marital status: Single Current occupational status: retired Vitals/I&O/Wt Last Vital Signs Temp 98.1 F 12/31/19 11:29 Pulse 89 12/31/19 13:02 Resp 16 12/31/19 13:00 BP 150/81 12/31/19 11:29 Pulse Ox 93 12/31/19 13:00 12/31/19 12/31/19 12/31/19 06:59 14:59 22:59 Intake Total 300 / 300 360 / 360 Output Total 450 / 450 Balance 300 / 300 -90 / -90 Weight last 48 hrs Weight 240 lb Physical Exam Const: COMMON NORMALS: no apparent distress and oriented x3 NUTRITIONAL APPEARANCE: obese OTHER: Pleasant, conversant. HENMT: COMMON NORMALS: oropharynx normal Neck/C-Spine: COMMON NORMALS: no JVD Resp: COMMON NORMALS: normal respiratory effort and clear to auscultation bilaterally AUSCULTATION: clear to auscultation bilaterally Cardio: COMMON NORMALS: no JVD, regular rhythm, S1 normal heart sound, S2 normal heart sound and no murmurs RHYTHM: regular rhythm HEART SOUNDS: S1 normal and S2 normal GI: COMMON NORMALS: normal to inspection, nondistended, normoactive bowel sounds, soft to palpation and non-tender PALPATION: Yes soft Extremity: COMMON NORMALS: no joint enlargement and no pedal edema OTHER: Left BKA Neuro: COMMON NORMALS: oriented x3 and moves all extremities OTHER: I observed a non-epileptic event of irregular movement of the right upper extremity. with arhtymic movments. not consistent with tremor, myoclonus or other physiologic movement disorders. Skin: COMMON NORMALS: no rashes or lesions noted GENERAL SKIN EXAM: no rashes or lesions noted A&P Assessment and plan (1) Abnormal movements: He has a new onset of an abnormal apparently involuntary movement of the right upper extremity. Given his history of uncontrolled diabetes and pvd, a limb shaking TIA could be considered. i would like to see vascular imaging and an mri of the brain. the event i witnessed was not epileptic. Limb shaking TIA typically are not associated with pain as he describes. He is on aspirin, which I agree should be continued. He is also on statins. Further recommendations pending his MRI and carotid dopplers. 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
--- NOTE | 2019-12-31 16:23 | USCV_ITS ---
Kevin Jeffrey Age: 64 Gender: M : 1955 Exam Date: 12/31/2019 16:38 Ordering Phys: Chris Razo MD Technologist: [place] Exam Location: [facility] [place] Indication: LIMB SHAKING. TIA. Risk Factors: Previous Vascular Surgery: Right Brachial BP: / Left Brachial BP: / Right Left Velocity (cm/s) Spectral Plaque Velocity (cm/s) Spectral Plaque Syst/Diast Broadening Syst/Diast Broadening 93.70/ 23.20 Prox CCA 85.60 / 14.90 49.60/ 13.20 Mid CCA 70.90 / 14.50 79.40/ 23.20 Distal CCA 72.60 / 23.40 131.60/36.90 Prox ICA 72.20 / 27.40 178.60/51.70 Mid ICA 93.20 / 33.80 176.90/60.10 Distal ICA 79.50 / 41.10 92.60 ECA 89.30 3.60 ICA/CCA 1.31 Antegrade Vertebral Antegrade 30.60/ 18.00 cm/s 50.30/ 12.80 cm/s Tri Subclavian Tri 102.5 65.80 0 CONCLUSIONS Right ICA stenosis 50-69%. Moderate atheromatous plaque right carotid bulb/ICA. Left ICA stenosis <50%. Moderate atheromatous plaque left carotid bulb/ICA. Normal antegrade Doppler flow noted in the right vertebral artery. Normal antegrade Doppler flow noted in the left vertebral artery. Rogelio Nielsen MD (Electronically Signed) Final Date: 01 January 2020 10:25 S
--- NOTE | 2019-12-31 16:24 | PM.PROC ---
 Procedure Note: Date of procedure: 12/31/19 Pre-procedure diagnosis: Abnormal movements Post-procedure diagnosis: same Procedure: EEG Performing Provider: Chris Razo Other Information: EEG report History: Spells concerning for seizure. Technique: Digital EEG acquired in the standard fashion with montages formatted for optimal review. Description: There is no well-formed background rhythm. Stage II sleep was not identified. Photic stimulation and hyperventilation were not performed. No focal, lateralized, or epileptiform abnormalities were seen. During this recording the patient had a typical clinical event which was observed as right arm spasms. Conciousness was not impaired. The patient was able to self terminate this event. During this clinical event, there were movement artifacts without an epileptiform correlate. Following the event, there were no focal regions of slowing. Interpretation: The patient's clinical event of right arm spasms do not have an EEG correlate. The EEG otherwise shows mild generalized slowing. Generalized slowing is consistent with toxic, metabolic, or multifocal structural abnormalities. 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
[2019-12-31 16:32] LABS: Glucose Point of Care 260 mg/dL (70-110)
--- NOTE | 2019-12-31 18:07 | CTR_ITS ---
PROCEDURE INFORMATION: Exam: CT Right Upper Extremity Without Contrast, Shoulder Exam date and time: 12/31/2019 9:29 PM Age: 64 years old Clinical indication: Other: Muscle spasms; Additional info: Muscle pain, spasms TECHNIQUE: Imaging protocol: CT of the Right upper extremity without contrast was performed. Exam focused on the shoulder. Total DLP: 1913.8 mGy-cm Radiation optimization: All CT scans at this facility use at least one of these dose optimization techniques: automated exposure control; mA and/or kV adjustment per patient size (includes targeted exams where dose is matched to clinical indication); or iterative reconstruction. COMPARISON: No relevant prior studies available. FINDINGS: Bones/joints: There are moderate degenerative changes of the acromioclavicular joint and severe degenerative changes of the glenohumeral joint. No acute fracture or dislocation. Cystic changes and sclerosis are noted in the greater tuberosity humerus compatible with probable sequela of chronic rotator cuff tendinopathy. No intra-articular body or chondrocalcinosis. No aggressive a neoplastic bony destruction. The visualized ribs are intact. There is a small glenohumeral joint effusion. Soft tissues: No definite calcific tendinopathy. There is edema in the subscapularis muscle that may reflect recent strain but no obvious tear or retraction of the tendon is identified. The proximal biceps tendon is identified in the bicipital groove of the humerus and no complete tear is identified. No soft tissue fluid collection. No focal muscle atrophy. Mild edema in the subscapularis muscle may reflect a recent strain. Lymph nodes: No adenopathy. Lungs: The visualized right lung apex is clear. Pleural space: No pleural effusion. CT/CT shoulder RT wo con* [id number] IMPRESSION: 1. There are moderate degenerative changes of the acromioclavicular joint and severe degenerative changes of the glenohumeral joint. 2. Degenerative changes. No acute bony abnormality. Radiation Dose CTDIVOL = (mGy): DLP = 1913.8 (mGy-cm)
--- NOTE | 2019-12-31 18:14 | PM.PN ---
Subjective Subjective: Interval history: He is feeling about the same. Intermittent spasm of the right shoulder. Vitals/I&O/Wt Last Vital Signs Temp 98.1 F 12/31/19 16:00 Pulse 82 12/31/19 16:00 Resp 16 12/31/19 16:00 BP 142/80 12/31/19 16:00 Pulse Ox 95 12/31/19 16:00 12/31/19 12/31/19 12/31/19 06:59 14:59 22:59 Intake Total 300 / 300 360 / 360 Output Total 450 / 450 Balance 300 / 300 -90 / -90 Weight last 48 hrs Weight 108.862 kg Physical Exam Const: COMMON NORMALS: no apparent distress and oriented x3 NUTRITIONAL APPEARANCE: obese OTHER: Pleasant, conversant. HENMT: COMMON NORMALS: oropharynx normal Neck/C-Spine: COMMON NORMALS: no JVD Resp: COMMON NORMALS: normal respiratory effort and clear to auscultation bilaterally AUSCULTATION: clear to auscultation bilaterally Cardio: COMMON NORMALS: no JVD, regular rhythm, S1 normal heart sound, S2 normal heart sound and no murmurs RHYTHM: regular rhythm HEART SOUNDS: S1 normal and S2 normal GI: COMMON NORMALS: normal to inspection, nondistended, normoactive bowel sounds, soft to palpation and non-tender PALPATION: Yes soft Extremity: COMMON NORMALS: no joint enlargement and no pedal edema OTHER: Left BKA Neuro: COMMON NORMALS: oriented x3 and moves all extremities OTHER: Intermittent episodes of spasms in his left shoulder, arm, forearm and hand. No clear trigger. These resolve on their own within less than a minute. Skin: COMMON NORMALS: no rashes or lesions noted GENERAL SKIN EXAM: no rashes or lesions noted Data : 12/31/19 05:35 12/31/19 05:35 A&P Assessment and plan (1) Muscle spasm of right shoulder: Unfortunately he could not undergo the MRI being bothered by the spasms, and declined when offered to try medications to help with the symptoms to perform the test. He underwent EEG, without noted seizure activity during spasm activity in his arm. Degenerative changes noted in cervical spine, with osteophytes, neuroforaminal narrowing bilaterally, with mild central stenosis C5-C6, moderate stenosis C6-C7. No DVT noted in right upper extremity. Discussed with neurology. Noted to have volitional control over movements. Appreciate recommendations. Requiring additional assessment by doppler study. He has intact sensation in the right arm, however, says his shoulder has been getting sore, as well as soreness spreading to his forearm, wrist and hand. There is some swelling there as well. There is some soreness on palpation of his shoulder, however, no pain on passive motion in the shoulder, elbow or wrist joint. The origin of the muscle spasm at this time is not clear. He does not have sensory levels or sensory loss, no significant persistent pain other than muscle soreness. Status: Acute Code(s): M62.838 - Other muscle spasm (2) Diabetes mellitus, new onset: Hyperglycemia improved. A1c is 11. Discussed with him regarding treatment, that he may benefit from insulin initiation, and he is agreeable. A1c was 6.1 back in 2017. Continue insulin sliding scale. Serum ketones negative. Status: Acute Code(s): E11.9 - Type 2 diabetes mellitus without complications Additional A&P Information Pseudohyponatremia with severe hyperglycemia. Resolved. Chronic thrombocytopenia: Unclear etiology. Will need additional follow-up. Chronic kidney disease: Possible component of acute kidney injury on chronic kidney disease. Holding losartan. Creatinine today is better down to 1.7. Attestations Medical Necessity Statement*: Requiring admission of over 2 midnights for assessment of bothersome persistent/recurrent symptom of muscle spasms of the right arm, acute kidney injury, optimization of management of new onset diabetes. Coding Level of Care Code Acute Law Librarian for [facility] Bartholomew Diagnoses Muscle spasm of right shoulder M62.838 Diabetes mellitus, new onset E11.9
[2019-12-31 20:59] LABS: Glucose Point of Care 429 mg/dL (70-110)
[2020-01-01] VITALS (11 sets, daily range): BP systolic 133–206; BP diastolic 66–98; PULSE 68–77; RESP 16–22; TEMP 36.6–36.9; O2SAT 92–97
[2020-01-01] MEDS: heparin 5,000 unit/mL INJ 1 mL 5000 UNIT SUBCUT ×4 (00:06→21:47)
[2020-01-01] MEDS: HYDROcodone-acetaminophen 5-325 mg Tablet 1 TAB PO ×3 (01:45→21:56)
[2020-01-01 06:00] LABS: Basophils % 0.4 %; Eosinophils # 0.3 10^3/uL (0.0-0.8); Eosinophils % 4.8 %; Hematocrit 39.4 % (42.0-52.0); Hemoglobin 12.8 g/dL (11.7-16.6); Lymphocytes # 1.8 10^3/uL (0.8-4.8); Lymphocytes % 33.8 %; Mean Corpuscular HGB Conc 32.5 g/dL (30.0-36.0); Mean Corpuscular Hemoglobin 28.2 pg (28.0-34.0); Mean Corpuscular Volume 86.8 fL (80-94); Mean Platelet Volume 10.4 fL (7.4-10.4); Monocytes # 0.4 10^3/uL (0.2-0.9); Monocytes % 6.6 %; Neutrophils % 54.2 %; Nucleated Red Blood Cells % 0 %; Platelet Count 70 10^3/cmm (130-400); Red Blood Count 4.54 10^6/uL (4.1-5.3); Red Cell Distribution Width 13.8 % (12.1-15.1); White Blood Count 5.5 10^3/uL (4.0-10.0)
[2020-01-01 06:12] LABS: Alanine Aminotransferase 27 U/L (0-41); Albumin Level 3.5 g/dL (3.5-5.2); Alkaline Phosphatase 56 IU/L (40-130); Anion Gap 19.2 (5-19); Aspartate Amino Transferase 34 U/L (0-40); Blood Urea Nitrogen 29 mg/dL (8-23); Calcium 9.7 mg/dL (8.5-10.5); Carbon Dioxide 21 mmol/L (22-29); Chloride 102 mmol/L (98-107); Globulin 3.5 g/dL (1.3-4.6); Glucose 251 mg/dL (65-115); Potassium 4.2 mmol/L (3.5-5.1); Sodium 138 mmol/L (136-145); Total Bilirubin 0.6 mg/dL (0.15-1.2)
[2020-01-01 06:51] LABS: Glucose Point of Care 284 mg/dL (70-110)
[2020-01-01] MEDS: aspirin 81 mg EC Tablet PO (09:52)
[2020-01-01] MEDS: ferrous sulfate EC 325 mg Tablet PO (09:53)
[2020-01-01] MEDS: atorvastatin 40 mg Tablet 80 MG PO (09:53)
[2020-01-01] MEDS: pantoprazole DR 40 mg Tablet PO (09:53)
[2020-01-01] MEDS: gabapentin 300 mg Capsule PO ×3 (09:53→21:47)
[2020-01-01] MEDS: metoprolol tartrate 50 mg Tablet PO ×2 (09:54→17:39)
[2020-01-01 11:06] LABS: Glucose Point of Care 383 mg/dL (70-110)
[2020-01-01] MEDS: LORazepam 2 mg/mL INJ 1 mL 0.5 MG IM (12:53)
[2020-01-01] MEDS: diazePAM 5 mg Tablet PO (14:39)
--- NOTE | 2020-01-01 14:44 | PC.NURSE ---
2 unsuccessful attempts to establish IV. Patient tolerated well. Dr. Lentz notified. Patient had 2 spasm spells while nurse was with him. Patient pale and diaphoretic. Patient currently leaving room for MRI at this time.
--- NOTE | 2020-01-01 15:40 | PM.PN ---
Subjective Subjective: Interval history: Patient off floor. Will see patient in consultation when on floor Vitals/I&O/Wt Last Vital Signs Temp 97.9 F 01/01/20 11:05 Pulse 74 01/01/20 11:54 Resp 16 01/01/20 11:38 BP 157/93 01/01/20 11:05 Pulse Ox 94 01/01/20 11:54 01/01/20 01/01/20 01/01/20 06:59 14:59 22:59 Intake Total 805 / 1885 Output Total 300 / 750 400 / 400 Balance 505 / 1135 -400 / -400 Data : 01/01/20 05:35 01/01/20 05:35 A&P Assessment and plan (1) Abnormal movements: by review of chart and discussion with Dr Aguila Status: Acute Code(s): R25.9 - Unspecified abnormal involuntary movements (2) Muscle spasm of right shoulder: Status: Acute Code(s): M62.838 - Other muscle spasm Attestations Medical Necessity Statement*: per hospitalist team Coding Level of Care Code Acute Solar Energy Sales Specialist for Chg Fwd Diagnoses Abnormal movements R25.9 Muscle spasm of right shoulder M62.838 Comment no charge for this visit
[2020-01-01 16:34] LABS: Glucose Point of Care 312 mg/dL (70-110)
--- NOTE | 2020-01-01 17:20 | PC.NURSE ---
Right radial and ulnar pulses assessed with Doppler. Pulses normal, strong, and regular. Patient tolerated well.
--- NOTE | 2020-01-01 19:05 | P.CONIM_ITS ---
Providers/Reason For Consult Consulting Physican/Specialty*: Jerzy Crouch DO- Orthopedic surgery Reason for Consult*: muscle spasms right upper extremity Attending Physician: Pasquale Lentz Primary Care Provider: Fer Musa DO History of Present Illness History of Present Illness Jeffrey Brown is a 64 year old male approximately 2-3 weeks prior to admission experienced initially some blurring of his vision and then double vision which has since resolved. He has begun to have episodes of uncontrolled movement with associated spasm of the right upper extremity. He has no such symptoms in the left upper extremity nor the right lower extremity. Status post amputation left lower extremity. Review of Systems Const: Denies: fever or chills Eyes: Reports: change in vision, blurry vision and other (double vision which has resolved) Card: Reports: edema (right upper extremity only); Denies: chest pain or palpitations Resp: Denies: shortness of breath or productive cough GI: Denies: abdominal pain, nausea or vomiting Musc: Reports: extremity pain, muscle cramps and muscle weakness Meds/Allergies Home Medications and Allergies Home Medications Medication Instructions Recorded Confirmed Type Combivent Respimat 1 puff INHALATION QID 12/28/19 12/30/19 History Multi-Vitamin HP/Minerals 1 cap PO DAILY 12/28/19 12/30/19 History acetaminophen 325 mg PO QID PRN 12/28/19 12/30/19 History albuterol sulfate 2 puff INHALATION QID PRN 12/28/19 12/30/19 History aspirin [Aspir-81] 81 mg PO DAILY 12/28/19 12/30/19 History atorvastatin 80 mg PO DAILY 12/28/19 12/30/19 History cholecalciferol (vitamin D3) 2,000 unit PO DAILY 12/28/19 12/30/19 History ferrous sulfate 325 mg PO DAILY 12/28/19 12/30/19 History furosemide 20 mg PO DAILY 12/28/19 12/30/19 History gabapentin 300 mg PO TID 12/28/19 12/30/19 History lidocaine See Rx Instructions .ROUTE .COMPLEX 12/28/19 12/30/19 History loratadine 10 mg PO DAILY PRN 12/28/19 12/30/19 History losartan 50 mg PO DAILY 12/28/19 12/30/19 History omeprazole 40 mg PO DAILY 12/28/19 12/30/19 History pentoxifylline 400 mg PO TID 12/28/19 12/30/19 History metoprolol tartrate 50 mg PO BID 12/30/19 12/30/19 History senna 8.6 mg PO DAILY PRN 12/30/19 12/30/19 History Allergies Allergy/AdvReac Type Severity Reaction Status Date / Time No Known Allergies Allergy Verified 12/28/19 10:49 Current Medications Current Medications Generic Name Dose Route Start Last Admin Trade Name Freq PRN Reason Stop Dose Admin Hydrocodone Bitart/Acetaminophen 1 tab 01/01/20 01:33 01/01/20 09:11 [place] 5-325 Mg PO 1 tab Q4H PRN Administration MODERATE PAIN Albuterol/Ipratropium 1 puff 12/31/19 08:00 01/01/20 15:07 Combivent Respimat INHALATION Not Given QID.RESPIRATORY JADEN Aspirin 81 mg 12/31/19 09:00 01/01/20 09:52 Aspirin Ec PO 81 mg DAILY JADEN Administration Atorvastatin Calcium 80 mg 12/31/19 09:00 01/01/20 09:53 Lipitor PO 80 mg DAILY JADEN Administration Carisoprodol 350 mg 12/31/19 18:09 01/01/20 12:53 Soma PO 350 mg Q8H PRN Administration PAIN Diazepam 5 mg 01/01/20 13:06 01/01/20 14:39 Valium PO 5 mg Q4H PRN Administration ANXIETY Ferrous Sulfate 325 mg 12/31/19 09:00 01/01/20 09:53 Ferrous Sulfate PO 325 mg DAILY JADEN Administration Gabapentin 300 mg 12/30/19 23:00 01/01/20 16:18 Neurontin PO 300 mg TID JADEN Administration Heparin Sodium (Beef Lung) 5,000 unit 12/30/19 23:00 01/01/20 16:16 Heparin SUBCUT 5,000 unit Q8H JADEN Administration Sodium Chloride 1,000 mls @ 100 mls/hr 12/30/19 17:30 01/01/20 09:13 Sodium Chloride 0.9% IV Not Given .Q10H JADEN Insulin Aspart 0 unit 12/30/19 21:36 01/01/20 17:39 Novolog SUBCUT 12 unit WM&BEDTIME JADEN Administration Protocol Metoprolol Tartrate 50 mg 12/31/19 09:00 02/20/20 17:39 Lopressor PO 50 mg BID JADEN Administration Morphine Sulfate 2 mg 12/30/19 17:25 12/30/19 17:49 Morphine IVP 2 mg Q4H PRN Administration SEVERE PAIN Multivitamins/Minerals 1 tab 12/31/19 09:00 01/01/20 09:52 Thera M Plus PO 1 tab DAILY JADEN Administration Non-Formulary Medication 400 mg 12/30/19 23:00 12/31/19 01:00 Pentoxifylline PO Not Given TID JADEN Pantoprazole Sodium 40 mg 12/31/19 09:00 01/01/20 09:53 Protonix PO 40 mg DAILY JADEN Administration PFSH Acute PFSH: Medical History (Updated 01/02/20 @ 20:26 by Jerzy Crouch DO) CAD (coronary artery disease) COPD (chronic obstructive pulmonary disease) History of DVT (deep vein thrombosis) December 2018 Myoclonus dystonia PVD (peripheral vascular disease) Weakness of right upper extremity Surgical History (Updated 01/01/20 @ 20:44 by Mina Flores MD) H/O hernia repair History of femoropopliteal bypass Hx of BKA S/P AKA (above knee amputation) unilateral Family History Other Diabetes Social History (Updated 01/01/20 @ 20:48 by Mina Flores MD) Smoking and tobacco status: former smoker Quit status (tobacco): has quit using tobacco Year quit tobacco: 1 year ago Alcohol intake: current Alcohol intake frequency: few times a month Alcohol use comment: Reports on Sundays has some beers with football games. Last time was 4 and half beers on Sunday. 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 Vitals/I&O/Wt Last Vital Signs Temp 98.3 F 01/01/20 16:00 Pulse 68 01/01/20 16:00 Resp 16 01/01/20 16:00 BP 139/75 01/01/20 17:38 Pulse Ox 97 01/01/20 16:00 01/01/20 01/01/20 01/01/20 06:59 14:59 22:59 Intake Total 805 / 1885 Output Total 300 / 750 400 / 400 200 / 600 Balance 505 / 1135 -400 / -400 -200 / -600 Physical Exam Narrative: EXAM NARRATIVE: 64 y/o white male Const: COMMON NORMALS: oriented x3 Eye: COMMON NORMALS: PERRL, conjunctivae normal and no scleral icterus VISUAL ACUITY: Yes acuity normal CONJUNCTIVA: Yes conjunctivae normal PUPIL: Yes PERRL Neck/C-Spine: COMMON NORMALS: no JVD Resp: COMMON NORMALS: normal respiratory effort AUSCULTATION: no crackles, no rales, no rhonchi and no wheezes Cardio: COMMON NORMALS: no JVD, regular rate, S2 normal heart sound and peripheral pulses 2+ throughout RATE: regular rate HEART SOUNDS: S2 normal PERIPHERAL PULSES: pulses 2+ throughout GI: COMMON NORMALS: normal to inspection, nondistended, normoactive bowel sounds and soft to palpation PALPATION: Yes soft Extremity: RIGHT UPPER EXTREMITY: Yes upper arm (week biceps and triceps), Yes elbow joint (weaa wrist flexors and extensors), Yes wrist Right wrist: Yes special tests Right wrist special tests: Tinel's test: Negative and Phalen's test: Negative and Yes hand & digits Right hand and digits: Yes neurovascular exam (weak and finger flexors and extensors and interossei) Neuro: COMMON NORMALS: oriented x3 SPEECH: speech normal MOTOR EXAM: movement abnormality noted myoclonus (right upper extremity which lasted approximately 3-4 minutes which the patient was unable to control and was painful the patient) A&P Assessment and plan (1) Abnormal movements: found the patient have weakness of the right upper extremity muscles. No sensory deficits were seen. With testing of finger flexors she developed myoclonus which lasted several minutes and he was unable to control. He had multiple areas of involuntary muscle spasm during this time of the right upper extremity I do not believe this was factitious movement disorder. He had good strength of the right lower extremity. I don't believe the patient is malingering. He seemed to be in discomfort from the muscles of his right upper [place] were spasming in a protracted fashion. I agree with Dr. Flores that further workup needs to be done with regards to MRI of the brain and MRI of the C-spine with sedation as the patient was able to tolerate the claustrophobic confines of the MRI. I believe a second opinion from a neurologic evaluation. This possible a prolonged EEG study if possible similar to a Holter to scan for activities in the motor cortex. this recommendation light of the normal EEG performed at our facility. The patient does have mild arthritic change of the right shoulder joint as well as the acromioclavicular joint. These findings on CT clearly would not treat the patient's symptom complex with abnormal motion and global weakness and mild clonus of the right upper extremity. I don't believe that I have anything else to offer with regards to establishing a diagnosis for this patient. Status: Acute Code(s): R25.9 - Unspecified abnormal involuntary movements (2) Myoclonus dystonia: Status: Acute Code(s): G25.3 - Myoclonus (3) Weakness of right upper extremity: Status: Acute Code(s): R29.898 - Other symptoms and signs involving the musculoskeletal system Consult Attestations Medical Necessity Statement: per medical team recommendations Coding Level of Care Code New Pt Acute Cableman for Chg Fwd Patient Type New 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 Diagnoses Abnormal movements R25.9 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 Weakness of right upper extremity R29.898 Time Spent (min) 35
--- NOTE | 2020-01-01 20:25 | PM.PN ---
Subjective Subjective: Interval history: Persistent spasms which happen every 30 to 45 minutes. Swelling and pain of the right arm. Vitals/I&O/Wt Last Vital Signs Temp 98.3 F 01/01/20 16:00 Pulse 77 01/01/20 20:12 Resp 18 01/01/20 20:12 BP 139/75 01/01/20 17:38 Pulse Ox 97 01/01/20 20:12 01/01/20 01/01/20 01/01/20 06:59 14:59 22:59 Intake Total 805 / 1885 Output Total 300 / 750 400 / 400 200 / 600 Balance 505 / 1135 -400 / -400 -200 / -600 Physical Exam Const: COMMON NORMALS: no apparent distress and oriented x3 NUTRITIONAL APPEARANCE: obese OTHER: Conversant. Today slightly anxious. HENMT: COMMON NORMALS: oropharynx normal Neck/C-Spine: COMMON NORMALS: no JVD Resp: COMMON NORMALS: normal respiratory effort and clear to auscultation bilaterally AUSCULTATION: clear to auscultation bilaterally Cardio: COMMON NORMALS: no JVD, regular rhythm, S1 normal heart sound, S2 normal heart sound and no murmurs RHYTHM: regular rhythm HEART SOUNDS: S1 normal and S2 normal GI: COMMON NORMALS: normal to inspection, nondistended, normoactive bowel sounds, soft to palpation and non-tender PALPATION: Yes soft Extremity: COMMON NORMALS: no joint enlargement and no pedal edema OTHER: Left BKA Neuro: COMMON NORMALS: oriented x3 and moves all extremities OTHER: Intermittent episodes of spasms in his left shoulder, arm, forearm and hand. No clear trigger. These resolve within less than a minute. Skin: COMMON NORMALS: no rashes or lesions noted GENERAL SKIN EXAM: no rashes or lesions noted Data : 01/01/20 05:35 01/01/20 05:35 A&P Assessment and plan (1) Muscle spasm of right shoulder: He was able to start the MRI study after Valium, however, the study was stopped after recurrence of symptoms causing significant motion artifact. Study had to be canceled. Notified neurology. Discussed that he cannot always terminate the episodes himself. Requested additional assessment with orthopedics regarding degenerative changes of glenohumeral joint with small effusion. Also requested assessment from neurosurgery regarding spinal stenosis and whether this could be contributing to his symptoms. Recommendation was for cervical spine MRI, although unfortunately this could not be obtained as above. EEG without noted seizure activity during spasm activity in his arm. Degenerative changes noted in cervical spine, with osteophytes, neuroforaminal narrowing bilaterally, with mild central stenosis C5-C6, moderate stenosis C6-C7. No DVT noted in right upper extremity. Dopplerable ulnar and radial pulses. Extremities warm and appears perfused. Per discussion of carotid Doppler results with neurology, worse stenosis noted on the right side should not be contributing to his symptoms. He has intact sensation in the right arm, however, says his shoulder has been getting sore, as well as soreness spreading to his forearm, wrist and hand. There is some swelling there as well. There is some soreness on palpation of his shoulder, however, no pain on passive motion in the shoulder, elbow or wrist joint. The origin of the muscle spasm at this time is not clear. Status: Acute Code(s): M62.838 - Other muscle spasm (2) Diabetes mellitus, new onset: Hyperglycemia better, not yet on target. Change sliding scale insulin to aggressive. A1c is 11. A1c was 6.1 back in 2017. Status: Acute Code(s): E11.9 - Type 2 diabetes mellitus without complications Additional A&P Information Pseudohyponatremia with severe hyperglycemia. Resolved. Chronic thrombocytopenia: Unclear etiology. Will need additional follow-up. B12, folic acid normal. Chronic kidney disease: Possible component of acute kidney injury on chronic kidney disease. Holding losartan. Creatinine today is down to 1.7. Attestations Medical Necessity Statement*: Continue admission for assessment and management of recurrent muscle spasms of right upper extremity. Optimization of hyperglycemia and diabetes control. Coding Level of Care Code Acute Security Strategist for [facility] Bartholomew Diagnoses Muscle spasm of right shoulder M62.838 Diabetes mellitus, new onset E11.9
--- NOTE | 2020-01-01 20:33 | P.CONIM_ITS ---
Providers/Reason For Consult Consulting Physican/Specialty*: Jumana Flores MD/Neurosurgery Reason for Consult*: Right arm/shoulder spasms Requesting Physcian: Dr. Lentz Attending Physician: Pasquale Lentz Primary Care Provider: Fer Musa DO History of Present Illness History of Present Illness Jeffrey Brown is a 64 year old male who describes a greater than 1 week history of episodic right upper extremity numbness/tingling/spasms. He describes experiencing spasms in the past, but nothing similar to the current symptoms. He reports no known inciting event. He has undergone a neurology consultation, wi th a negative EEG. He has been seen by orthopedic surgery. He has had CT scans of the head and cervical spine. MRI of the brain and C-spine were attempted. The studies were aborted due claustrophobia and movement related image degradation. Neurosurgery consultation was requested to assess whether the noted C-spine abnormalities might be responsible for his current complaints. Review of Systems Const: Denies: fever, chills, body aches or malaise Eyes: Denies: change in vision or eye redness ENMT: Denies: throat pain or ear pain Card: Reports: edema (right hand); Denies: chest pain or syncope Resp: Denies: shortness of breath or productive cough GI: Denies: abdominal pain, nausea or vomiting : Denies: flank pain or blood in urine Musc: Reports: muscle cramps (right upper extremity); Denies: neck pain or back pain Skin/Breast: Denies: rash, sores or new lesion Neuro: Reports: numbness in extremities (fluctuating, right upper extremity), changes in sensation (fluctuating, right upper extremity), seizure-like activity (right upper extremity, without LOC or altered mental status) and involuntary movements (episodic in right upper extremity); Denies: headache, weakness in extremities (fluctuating, right upper extremity) or dizziness Endo: Denies: excessive urination or excessive thirst Jesús/Lymph: Denies: easy bleeding or purpura All/Imm: Denies: hives or throat swelling Meds/Allergies Home Medications and Allergies Home Medications Medication Instructions Recorded Confirmed Type Combivent Respimat 1 puff INHALATION QID 12/28/19 01/14/20 History Multi-Vitamin HP/Minerals 1 cap PO DAILY 12/28/19 01/14/20 History acetaminophen 325 mg PO QID PRN 12/28/19 01/14/20 History albuterol sulfate 2 puff INHALATION QID PRN 12/28/19 01/14/20 History atorvastatin 80 mg PO DAILY 12/28/19 01/14/20 History cholecalciferol (vitamin D3) 2,000 unit PO DAILY 12/28/19 01/14/20 History ferrous sulfate 325 mg PO DAILY 12/28/19 01/14/20 History furosemide 20 mg PO DAILY 12/28/19 01/14/20 History gabapentin 300 mg PO TID 12/28/19 01/14/20 History lidocaine See Rx Instructions .ROUTE .COMPLEX 12/28/19 01/14/20 History loratadine 10 mg PO DAILY PRN 12/28/19 01/14/20 History losartan 50 mg PO DAILY 12/28/19 01/14/20 History omeprazole 40 mg PO DAILY 12/28/19 01/14/20 History pentoxifylline 400 mg PO TID 12/28/19 01/14/20 History metoprolol tartrate 50 mg PO BID 12/30/19 01/14/20 History senna 8.6 mg PO DAILY PRN 12/30/19 01/14/20 History Allergies Allergy/AdvReac Type Severity Reaction Status Date / Time No Known Allergies Allergy Verified 01/14/20 11:54 Current Medications Current Medications Generic Name Dose Route Start Last Admin Trade Name Freq PRN Reason Stop Dose Admin Hydrocodone Bitart/Acetaminophen 1 tab 01/01/20 01:33 01/01/20 09:11 [place] 5-325 Mg PO 1 tab Q4H PRN Administration MODERATE PAIN Albuterol/Ipratropium 1 puff 12/31/19 08:00 01/01/20 15:07 Combivent Respimat INHALATION Not Given QID.RESPIRATORY JADEN Aspirin 81 mg 12/31/19 09:00 01/01/20 09:52 Aspirin Ec PO 81 mg DAILY JADEN Administration Atorvastatin Calcium 80 mg 12/31/19 09:00 01/01/20 09:53 Lipitor PO 80 mg DAILY JADEN Administration Carisoprodol 350 mg 12/31/19 18:09 01/01/20 12:53 Soma PO 350 mg Q8H PRN Administration PAIN Diazepam 5 mg 01/01/20 13:06 01/01/20 14:39 Valium PO 5 mg Q4H PRN Administration ANXIETY Ferrous Sulfate 325 mg 12/31/19 09:00 01/01/20 09:53 Ferrous Sulfate PO 325 mg DAILY JADEN Administration Gabapentin 300 mg 12/30/19 23:00 01/01/20 16:18 Neurontin PO 300 mg TID JADEN Administration Heparin Sodium (Beef Lung) 5,000 unit 12/30/19 23:00 01/01/20 16:16 Heparin SUBCUT 5,000 unit Q8H JADEN Administration Sodium Chloride 1,000 mls @ 100 mls/hr 12/30/19 17:30 01/01/20 09:13 Sodium Chloride 0.9% IV Not Given .Q10H JADEN Insulin Aspart 0 unit 12/30/19 21:36 01/01/20 17:39 Novolog SUBCUT 12 unit WM&BEDTIME JADEN Administration Protocol Metoprolol Tartrate 50 mg 12/31/19 09:00 01/01/20 17:39 Lopressor PO 50 mg BID JADEN Administration Morphine Sulfate 2 mg 12/30/19 17:25 12/30/19 17:49 Morphine IVP 2 mg Q4H PRN Administration SEVERE PAIN Multivitamins/Minerals 1 tab 12/31/19 09:00 01/01/20 09:52 Thera M Plus PO 1 tab DAILY JADEN Administration Non-Formulary Medication 400 mg 12/30/19 23:00 12/31/19 01:00 Pentoxifylline PO Not Given TID JADEN Pantoprazole Sodium 40 mg 12/31/19 09:00 01/01/20 09:53 Protonix PO 40 mg DAILY JADEN Administration PFSH Acute PFSH: Family History Other Diabetes Social History Smoking and tobacco status: former smoker Quit status (tobacco): has quit using tobacco Year quit tobacco: 1 year ago Alcohol intake: current Alcohol intake frequency: few times a month Lives independently: Yes Household members: significant other Marital status: Single Current occupational status: retired 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 Vitals/I&O/Wt Last Vital Signs Temp 98.3 F 01/01/20 16:00 Pulse 77 01/01/20 20:12 Resp 18 01/01/20 20:12 BP 139/75 01/01/20 17:38 Pulse Ox 97 01/01/20 20:12 01/01/20 01/01/20 01/01/20 06:59 14:59 22:59 Intake Total 805 / 1885 Output Total 300 / 750 400 / 400 200 / 600 Balance 505 / 1135 -400 / -400 -200 / -600 Physical Exam Const: COMMON NORMALS: no apparent distress and alert GENERAL APPEARANCE: cooperative and disheveled NUTRITIONAL APPEARANCE: obese HENMT: COMMON NORMALS: normocephalic HEAD & SCALP: normocephalic FACE & SINUS: face symmetric GENERAL EAR: hearing not grossly impaired Eye: COMMON NORMALS: EOMs intact bilaterally and conjunctivae normal CONJUNCTIVA: Yes conjunctivae normal Neck/C-Spine: COMMON NORMALS: full ROM, supple and no JVD GENERAL: Yes trachea midline and No tender CERVICAL SPINE: Yes cervical ROM abnormal (mildly diminsihed in all planes), No pain with cervical ROM and No cervical spine tenderness Chest: COMMONS NORMALS: inspection of chest normal (Respirations even and unlabored) Resp: COMMON NORMALS: normal respiratory effort EFFORT & INSPECTION: No stridor Cardio: COMMON NORMALS: no JVD GI: COMMON NORMALS: soft to palpation PALPATION: Yes soft and No tender Back/Pelvis: LUMBAR SPINE/LOWER BACK: Yes normal to inspection, No pain with ROM and No straight leg raise positive right PELVIS: No sciatic notch tenderness SACROILIAC JOINTS: Yes SI joints normal Extremity: COMMON NORMALS: no pedal edema GENERAL: Yes amputation (left AKA), No clubbing and No cyanosis Neuro: COMMON NORMALS: moves all extremities and no sensory deficits noted SENSORIUM/ORIENTATION: Yes alert CRANIAL NERVES: Yes CN III (oculomotor), Yes CN IV (trochlear), Yes CN V (trigeminal), Yes CN (abducens), Yes CN VII (facial), Yes CN VIII (vestibulocochlear), Yes CN IX and CN X (glossopharyngeal/vagus), Yes CN XI (spinal accessory) and Yes CN XII (hypoglossal) SPEECH: speech normal and other GAIT: Yes assistive device used MOTOR EXAM: no fasciculations, strength abnormal (diffusely diminished right upper extremity strength 4-/5 to 4/5), No tremor, No fasciculations and other (Gonsalves sign negative bilaterally) PLANTAR REFLEX: other: right (No clonus) Psych: COMMON NORMALS: mental status grossly normal and thought process normal APPEARANCE: Yes disheveled ATTITUDE: Yes calm and Yes engaged ACTIVITY/MOTOR BEHAVIOR: Yes appropriate eye contact MOOD & AFFECT: Yes euthymic mood THOUGHT PROCESS: normal thought process ATTENTION/CONCENTRATION: Yes attention grossly intact MEMORY/COGNITION: Yes memory grossly intact Skin: COMMON NORMALS: no rashes or lesions noted GENERAL SKIN EXAM: no rashes or lesions noted Data Imaging^: Other Imaging: My impression: Head: No hydrocephalus, intracranial hemorrhage, obvious stroke or mass lesion identified. C-spine: Extensive, multilevel degenerative disc and joint disease is noted. There are prominent anterior and posterior marginal osteophytes. Disc/osteophyte complexes produce anterior canal and predominantly left foraminal stenosis at C3-C4. There is right foraminal encroachment at C4-C5. Disc/osteophyte complexes produce canal and foraminal stenosis at C5-C6 and C6- C7. Other Data: Attestation for Other Data: I personally reviewed and interpreted the following: (CT head, CT cervical spine) A&P Assessment and plan (1) Intervertebral cervical disc disorder with myelopathy, cervical region: Patient is seen in regards to new onset right upper extremity episodic numbness/tingling/spasms of greater than 1 week's duration. No clear source for the symptoms has been identified on EEG or brain CT. A cervical spine CT shows significant disc/osteophyte related canal and foraminal compromise at C3- C4(left), C5-C6 and C6-C7. MRI studies were not completed due to claustrophobia and movement related image degradation. Although significant cervical spine abnormalities are identified on the CT, findings would not be expected to produce the patient's current symptom complex. In summary, the source of his current symptoms is not clear. Further diagnostic work-up could include CTA of the head and neck, MRA/MRI of the brain, and cervical spine MRI or CT/myelogram. MRI imaging could be attempted again with additional sedation or could be performed in [place] with IV sedation or on a high field strength open MRI unit. Right upper extremity electrodiagnostic studies might prove beneficial, but the current diagnostic yield would be diminished by the recent onset/short duration of symptoms. Status: Acute Code(s): M50.00 - Cervical disc disorder with myelopathy, unspecified cervical region (2) Diabetes mellitus: Status: Acute Code(s): E11.9 - Type 2 diabetes mellitus without complications (3) Abnormal movements: Status: Acute Code(s): R25.9 - Unspecified abnormal involuntary movements Consult Attestations Medical Necessity Statement: Patient is appropriate for in-hospital evaluation and management of right upper extremity symptoms of uncertain etiology. Time Spent in Patient Care: Greater than 35 minutes Coding Level of Care Code Acute Non Profit Director for [facility] 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 Diagnoses Intervertebral cervical disc disorder with myelopathy, cervical region M50.00 Diabetes mellitus E11.9 Abnormal movements R25.9 Time Spent (min) 60
[2020-01-01 21:17] LABS: Glucose Point of Care 291 mg/dL (70-110)
[2020-01-02] VITALS (8 sets, daily range): BP systolic 122–170; BP diastolic 78–92; PULSE 60–112; RESP 17–20; TEMP 36.7–37; O2SAT 95–97
[2020-01-02] MEDS: HYDROcodone-acetaminophen 5-325 mg Tablet 1 TAB PO ×3 (05:49→20:09)
[2020-01-02] MEDS: diazePAM 5 mg Tablet PO (05:49)
[2020-01-02] MEDS: heparin 5,000 unit/mL INJ 1 mL 5000 UNIT SUBCUT ×2 (05:49→15:09)
[2020-01-02 06:21] LABS: Glucose Point of Care 220 mg/dL (70-110)
[2020-01-02 06:33] LABS: Alanine Aminotransferase 29 U/L (0-41); Albumin Level 3.8 g/dL (3.5-5.2); Alkaline Phosphatase 61 IU/L (40-130); Anion Gap 18.7 (5-19); Blood Urea Nitrogen 34 mg/dL (8-23); Calcium 10.2 mg/dL (8.5-10.5); Carbon Dioxide 18 mmol/L (22-29); Chloride 104 mmol/L (98-107); Globulin 3.5 g/dL (1.3-4.6); Glucose 245 mg/dL (65-115); Potassium 4.7 mmol/L (3.5-5.1); Sodium 136 mmol/L (136-145); Total Bilirubin 0.5 mg/dL (0.15-1.2); Total Protein 7.3 g/dL (6.6-8.7)
[2020-01-02 06:46] LABS: Aspartate Amino Transferase 34 U/L (0-40)
[2020-01-02] MEDS: aspirin 81 mg EC Tablet PO (08:10)
[2020-01-02] MEDS: atorvastatin 40 mg Tablet 80 MG PO (08:11)
[2020-01-02] MEDS: pantoprazole DR 40 mg Tablet PO (08:11)
[2020-01-02] MEDS: metoprolol tartrate 50 mg Tablet PO ×2 (08:11→17:18)
[2020-01-02] MEDS: gabapentin 300 mg Capsule PO ×3 (08:11→20:08)
[2020-01-02] MEDS: ferrous sulfate EC 325 mg Tablet PO (08:12)
[2020-01-02 10:43] LABS: Basophils % 0.2 %; Eosinophils # 0.2 10^3/uL (0.0-0.8); Hematocrit 38.7 % (42.0-52.0); Hemoglobin 12.5 g/dL (11.7-16.6); Lymphocytes # 1.7 10^3/uL (0.8-4.8); Lymphocytes % 36.5 %; Mean Corpuscular HGB Conc 32.3 g/dL (30.0-36.0); Mean Corpuscular Volume 89.8 fL (80-94); Mean Platelet Volume 10.8 fL (7.4-10.4); Monocytes # 0.4 10^3/uL (0.2-0.9); Monocytes % 7.6 %; Neutrophils # 2.3 10^3/uL (1.8-7.7); Neutrophils % 50.5 %; Nucleated Red Blood Cells % 0 %; Platelet Count 73 10^3/cmm (130-400); Red Blood Count 4.31 10^6/uL (4.1-5.3); Red Cell Distribution Width 13.8 % (12.1-15.1); White Blood Count 4.6 10^3/uL (4.0-10.0)
[2020-01-02 11:06] LABS: Glucose Point of Care 286 mg/dL (70-110)
--- NOTE | 2020-01-02 12:01 | P.PN_ITS ---
Subjective Subjective: Interval history: He was unable to tolerate an MRI. He continues to have episodes of 'involunatary' arm jerking. Medications: Reviewed: Yes Vitals/I&O/Wt Last Vital Signs Temp 98.1 F 01/02/20 11:55 Pulse 65 01/02/20 11:55 Resp 20 H 01/02/20 11:55 BP 146/85 01/02/20 11:55 Pulse Ox 95 01/02/20 11:55 01/01/20 01/02/20 01/02/20 22:59 06:59 14:59 Intake Total 1360 / 1360 Output Total 400 / 800 600 / 1400 Balance -400 / -800 -600 / -1400 1360 / 1360 Weight last 48 hrs Weight 243 lb 14.4 oz Physical Exam Narrative: EXAM NARRATIVE: He is alert and oriented sitting at bedside. He has no focal deficits. his tone is normal. his upper extremity reflexes and sensation are intact and symmetric. After a few minutes in the room, he had another attack. His right arm spasmed. there was posturing of the right hand in a flexed position with irregular movements, and the elbow was in a flexed position. There was no involvement of head or leg. Data : 01/02/20 10:35 01/02/20 05:34 A&P Assessment and plan (1) Abnormal movements: His right arm pain is likely musculoskeletal. The edema and peripheral tenderness points to a non-neurologic etiology (ie, this is not cervical radiculopathy or myelopathy). An EMG is of likely very low yield at this time, and would not shed light on the movement disorder. The movements are not epileptic, and do not appear to be related to a limb shaking TIA phenomenon as there was not a significant left carotid stenosis. The movements I have observed on 2 occasions have a functional appearance. They are not consistent with chorea, tremor, dystonia, or other organic pathology. For completeness sake I would recommend obtaining an MRI brain, with a higher degree of sedation if required. Status: Acute Code(s): R25.9 - Unspecified abnormal involuntary movements Attestations Medical Necessity Statement*: per primary team. Coding Level of Care Code Acute Medical Office Technician for [facility] Diagnoses Abnormal movements R25.9
[2020-01-02 16:52] LABS: Glucose Point of Care 240 mg/dL (70-110)
--- NOTE | 2020-01-02 19:11 | P.PN_ITS ---
Subjective Subjective: Interval history: Recurrent spasms. Arm soreness. Vitals/I&O/Wt Last Vital Signs Temp 98.6 F 01/02/20 16:00 Pulse 68 01/02/20 16:00 Resp 20 H 01/02/20 16:00 BP 151/92 01/02/20 16:00 Pulse Ox 95 01/02/20 16:00 01/02/20 01/02/20 01/02/20 06:59 14:59 22:59 Intake Total 1720 / 1720 Output Total 600 / 1400 Balance -600 / -1400 1720 / 1720 Weight last 48 hrs Weight 110.631 kg Physical Exam Const: COMMON NORMALS: no apparent distress and oriented x3 NUTRITIONAL APPEARANCE: obese OTHER: Conversant. Awake, alert. HENMT: COMMON NORMALS: oropharynx normal Neck/C-Spine: COMMON NORMALS: no JVD Resp: COMMON NORMALS: normal respiratory effort and clear to auscultation bilaterally AUSCULTATION: clear to auscultation bilaterally Cardio: COMMON NORMALS: no JVD, regular rhythm, S1 normal heart sound, S2 normal heart sound and no murmurs RHYTHM: regular rhythm HEART SOUNDS: S1 normal and S2 normal GI: COMMON NORMALS: normal to inspection, nondistended, normoactive bowel sounds, soft to palpation and non-tender PALPATION: Yes soft Extremity: COMMON NORMALS: no joint enlargement and no pedal edema OTHER: Left BKA Neuro: COMMON NORMALS: oriented x3 and moves all extremities OTHER: Intermittent episodes of spasms in his left shoulder, arm, forearm and hand. No clear trigger. These resolve within less than a minute. Skin: COMMON NORMALS: no rashes or lesions noted GENERAL SKIN EXAM: no rashes or lesions noted Data : 01/02/20 10:35 01/02/20 05:34 A&P Assessment and plan (1) Muscle spasm of right shoulder: Discussed with patient so far the assessment that has been performed. Our neurologist does not feel symptoms are caused by a seizure, or in fact a neurologic condition at all, but still recommending to perform MRI. This test is not possible here, as discussed with him yesterday, as monitoring is not available with sedation in MRI at our facility. Transfer to [facility] (patient l[place] from [place]) not possible as there were no beds. No beds at either. [facility], but patient would have to pay for transportation out of pocket. Speaking with [facility] neurologist Dr Laboy he declined transfer recommending to load patient with Keppra, change aspirin to Plavix and have patient follow up with them in office. This was not recommended by our neurologist who also witnessed the episodes, although had stated previously that a small seizure focus may indeed be missed on the EEG he had here. On discussion today recommends against starting antiepileptic and denies any other recommendations. Per discussion with orthopedics findings on imaging and exam should not contribute to his current presentation. He had an episode of spasm during the visit with contraction of multiple muscle groups, causing him discomfort not able to terminate it volitionally. Hand with finding of clonus on passive extension. Persistent weakness of the extremity, significant swelling. Concern expressed for possible neurological cause. Neurosurgery recommending consideration of CTA of the head and neck, MRA/MRI of the brain, and cervical spine MRI or CT/myelogram. Recomendations also brought to the attention of Dr Laboy at [facility]. Again MRI cannot be performed here due to the reasons mentioned above. CTA would be risky with his poor renal function. Possible electrodiagnostic studies although admittedly would be low yield as a lso recommended against by our neurologist. Consideration also given to symptoms being related to new onset DM and severe hyperglycemia, although his symptoms did very significantly adilson so far despite improvement in hyperglycemia. The conflicting opinions and the rest of the above was discussed with the patient. Went over further options in detail. Offered that we may either try to arrange transfer to [place] for him as we are otherwise unable to complete all of the work up as recommended here, which he prefers not to do due to financial reasons. Discussed with him we can continue to pursue transfer to outside facility for the recommended additional work up, although at the time of the discussion he declines further attempts. He understands that there is still high likelihood his symptoms are related to a functional disorder. At the same time they are quite bothersome to him, and with unclear etiology he would like to try something that may provide relief and in case of the chance, albeit small, that there is indeed a physical cause. He has taken the time to consider the circums tances and after going over the potential side effects, would like to proceed with starting seizure medication with outpatient follow up. He is an amputee with L AKA and with weakness pain, spasms in the R arm is at elevated fall risk and with difficulties with locomotion. States has a wheelchair at home. Will request home health care. Status: Acute Code(s): M62.838 - Other muscle spasm (2) Diabetes mellitus, new onset: Hyperglycemia better, not yet on target. Add lantus 10. Aggressive sliding scale. 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 A1c is 11. A1c was 6.1 back in 2017. Status: Acute Code(s): E11.9 - Type 2 diabetes mellitus without complications Additional A&P Information Pseudohyponatremia with severe hyperglycemia. Resolved. Chronic thrombocytopenia: Unclear etiology. Will need additional follow-up. B12, folic acid normal. Chronic kidney disease: Possible component of acute kidney injury on chronic kidney disease. Holding losartan. Creatinine down to 1.7. Attestations Medical Necessity Statement*: Continue admission for assessment of recurrent spasms of right upper extremity pending arrangements for discharge home. Coding Level of Care Code Acute Hospital Television Rental Clerk for [facility] Diagnoses Muscle spasm of right shoulder M62.838 Diabetes mellitus, new onset E11.9
[2020-01-02] MEDS: levETIRAcetam 500 mg Tablet 1500 MG PO (20:09)
[2020-01-02 21:23] LABS: Glucose Point of Care 252 mg/dL (70-110)
[2020-01-02] MEDS: insulin glargine 100 units/1 mL 10 UNIT SUBCUT (21:56)
--- NOTE | 2020-01-02 23:59 | P.PN_ITS ---
Subjective Subjective: Interval history: About the same. Reports persistent episodic right upper extremity intense spasms. Vitals/I&O/Wt Last Vital Signs Temp 98.0 F 01/02/20 20:00 Pulse 69 01/02/20 21:09 Resp 18 01/02/20 21:09 BP 154/81 01/02/20 20:00 Pulse Ox 96 01/02/20 21:09 01/02/20 01/02/20 01/03/20 14:59 22:59 06:59 Intake Total 1720 / 1720 Output Total 200 / 200 Balance 1720 / 1720 -200 / 1520 Weight last 48 hrs Weight 243 lb 14.4 oz Physical Exam Const: COMMON NORMALS: no apparent distress and alert GENERAL APPEARANCE: cooperative, comfortable and disheveled NUTRITIONAL APPEARANCE: obese Neck/C-Spine: GENERAL: Yes trachea midline and No tender CERVICAL SPINE: Yes cervical ROM abnormal (mild, diffuse) Resp: COMMON NORMALS: normal respiratory effort EFFORT & INSPECTION: Yes able to speak in complete sentences and No labored Extremity: GENERAL: Yes amputation (left lower extremity) and Yes edema (right hand) Neuro: COMMON NORMALS: no sensory deficits noted SENSORIUM/ORIENTATION: Yes alert MOTOR EXAM: strength abnormal (mild diffuse weakness/apraxia in right upper extremity) Psych: COMMON NORMALS: cooperative ATTITUDE: Yes calm and Yes engaged INSIGHT: fair Skin: COMMON NORMALS: no rashes or lesions noted GENERAL SKIN EXAM: no rashes or lesions noted Data : 01/02/20 10:35 01/03/20 05:10 A&P Assessment and plan (1) Intervertebral cervical disc disorder with myelopathy, cervical region: Patient has been seen in regards to new onset right upper extremity episodic numbness/tingling/spasms of greater than 1 week's duration. No clear source for the symptoms has been identified on EEG or brain CT. A cervical spine CT showed significant disc/osteophyte related canal and foraminal compromise at C3-C4(left), C5-C6 and C6-C7. MRI studies were not completed due to claustrophobia and movement related image degradation. Although significant cervical spine abnormalities are identified on the CT, findings would not be expected to produce the patient's current symptom complex. In summary, the source of his current symptoms is not clear. The neurology note was reviewed. Agree that brain MRI would be beneficial. Other diagnostic work-up options would include CTA of the head and neck, cervicocerebral MRA, and cervical spine MRI or CT/myelogram. MRI imaging could be attempted again with additional sedation or could be performed in [place] with IV sedation or on a high field strength open MRI unit. Transfer to an outside facility may be required to allow the desired MRI imaging to be completed. Right upper extremity electrodiagnostic studies might prove benefic ial, but the diagnostic yield would be improved if studies were delayed. No neurosurgical intervention is planned at this time. Status: Acute Code(s): M50.00 - Cervical disc disorder with myelopathy, unspecified cervical region (2) Diabetes mellitus: Status: Acute Code(s): E11.9 - Type 2 diabetes mellitus without complications (3) Abnormal movements: Status: Acute Code(s): R25.9 - Unspecified abnormal involuntary movements Attestations Medical Necessity Statement*: As per Hospitalist. Coding Level of Care Code Acute Atmospheric Physicist for [facility] Fwd Exam Detailed Diagnoses Intervertebral cervical disc disorder with myelopathy, cervical region M50.00 Diabetes mellitus E11.9 Abnormal movements R25.9 Time Spent (min) 15
[2020-01-03] VITALS (9 sets, daily range): BP systolic 130–164; BP diastolic 85–93; PULSE 60–80; RESP 18; TEMP 36.4–37; O2SAT 94–97
[2020-01-03] MEDS: heparin 5,000 unit/mL INJ 1 mL 5000 UNIT SUBCUT ×2 (00:49→06:05)
[2020-01-03] MEDS: HYDROcodone-acetaminophen 5-325 mg Tablet 1 TAB PO ×3 (01:43→10:28)
[2020-01-03 06:05] LABS: Anion Gap 16.3 (5-19); Blood Urea Nitrogen 34 mg/dL (8-23); Calcium 10.3 mg/dL (8.5-10.5); Carbon Dioxide 24 mmol/L (22-29); Chloride 99 mmol/L (98-107); Glucose 337 mg/dL (65-115); Osmolality Calculated 291 mOsm/kg (285-295); Potassium 4.3 mmol/L (3.5-5.1); Sodium 135 mmol/L (136-145)
[2020-01-03 06:58] LABS: Glucose Point of Care 249 mg/dL (70-110)
[2020-01-03] MEDS: aspirin 81 mg EC Tablet PO (08:31)
[2020-01-03] MEDS: metoprolol tartrate 50 mg Tablet PO (08:31)
[2020-01-03] MEDS: gabapentin 300 mg Capsule PO (08:31)
[2020-01-03] MEDS: pantoprazole DR 40 mg Tablet PO (08:31)
[2020-01-03] MEDS: atorvastatin 40 mg Tablet 80 MG PO (08:32)
[2020-01-03] MEDS: ferrous sulfate EC 325 mg Tablet PO (08:32)
[2020-01-03 11:58] LABS: Glucose Point of Care 337 mg/dL (70-110)
--- NOTE | 2020-01-03 12:52 | PM.DCS ---
Discharge Providers Date of Admission: 12/31/19 18:10 Date of Discharge: January 03, 2020 Attending Provider at Admission: Pasquale Lentz Attending Provider at Discharge: Pasquale Lentz Primary Care Provider: Fer Musa DO Diagnoses at Discharge Discharge Diagnosis (1) Abnormal movements: Status: Acute (2) Intervertebral cervical disc disorder with myelopathy, cervical region: Status: Acute (3) Diabetes mellitus: Status: Acute Problem details: New disgnosis Reason for Visit Reason for Visit: Reason For Visit: new onset diabetes Hospital Course Hospital Course: Pleasant 64-year-old gentleman with history of CAD, PVD, status post left AKA, COPD, past history of DVT presented to emergency department due to recurrent spasms of right upper extremity including shoulder, arm, forearm and hand, with episodes lasting anywhere from 30 seconds or less up to several minutes, without clear trigger, without clear alleviating factors. This started about 5 days prior to admission, and have been waking him up at night. He has developed swelling, tenderness of the right arm, forearm and hand, with weakness of the extremity. He denied past history of CVA or seizure. He occasionally has alcohol on the weekends, but does not drink otherwise, and denied history of severe withdrawal. He always remains alert during episodes. Plain CT of the head during a prior ER visit several days earlier did not reveal any bleeding, mass-effect, or obvious CVA. Previously and at the time of current admission noted to be severely hyperglycemic on presentation, with blood glucose 535. A1c noted 6.1 back in 2017, however, when assessed this time was 11. Noted with mild acute kidney injury on presentation with creatinine of 2, with improvement down to 1.7. Mild rhabdomyolysis, creatinine kinase 453 with repeat spasmodic contractions. Venous Doppler in ER did not reveal DVT. CT cervical spine and shoulder were performed. CT C-spine showed fairly pronounced degenerative changes, among them with mild stenosis C5-C6, moderate stenosis C6-C7, multilevel neuroforaminal narrowing. Carotid Doppler showed less than 50% left ICA stenosis and 50-69% right ICA stenosis. Shoulder CT showed moderate degenerative changes of acromioclavicular joint, severe degenerative changes of glenohumeral joint without acute bony abnormality, small glenohumeral joint effusion. His potassium, Nexium, calcium, B12, folic acid, TSH were normal. He was assessed by EEG, with noted motion artifact, but no obvious seizure activity. He was assessed by neurology who was not sure that his symptoms were related to seizure activity, although stating that a small focus may be unseen on EEG study he had had. Overall leaning rather to a nonneurological diagnosis, possibly functional. Recommending MRI brain. This was also recommended by neurosurgery, in addition with MRI of cervical spine and possible consideration of additional studies as the diagnosis remained unclear. During evaluation by orthopedic surgery had an episode which lasted 3-4 minutes and would be rather surprising for it to have been volitional/psychosomatic. MRI brain was attempted, and with Valium due to claustrophobia he was able to start the study, however, his episodes since presentation have been frequent, sometimes several per hour, and due to motion artifact with recurrence of the episode MRI study was uninterpretable. Unfortunately MRI with sedation is not available at our facility. Transfer was discussed with patient and attempted initially to [facility], [place], although without available beds, consider to [place], although he would have to pay [id number] for transportation there and had declined, and discussed with [facility] neurology who instead prefer to see him outpatient after loading him with an antiseizure medication, declining transfer. Discussed with him that this is not the recommendation of our neurologist, however, as the episodes have been quite bothersome to him, after discussing potential alternatives as well as potential adverse effects of the medication he elected to start the seizure medication. Discussed with him that we may again attempt additional hospitals to seek transfer for MRI evaluation as recommended, although at this stage he states this morning that the frequency of his episodes actually has improved and since starting the medication he has had 2 episodes, and prefers if possible to arrange outpatient follow-up. Limb shaking TIA is considered less likely, discussed with him, however, aspirin will be changed for Plavix to which she is agreeable. His blood glucose has improved with insulin therapy. He will continue on discharge. Please help him optimize control of his diabetes. His platelet levels have remained low, but stable around 70,000. Please follow-up levels and consider additional assessment by hematology. He will continue on Keppra for now. Adjust medication as appropriate. Requested he be set up with appointment with the [facility] neurologist with whom his case was discussed. Requested that he be scheduled for an MRI brain and C-spine with sedation over at [facility] which has the capability to perform this test. The neurosurgeon will want to see him in office after MRI is complete and he has been seen by neurology. The plan has been gone over in detail with patient who is agreeable and otherwise wants to return home today. Physical Exam Const: COMMON NORMALS: no apparent distress and oriented x3 NUTRITIONAL APPEARANCE: obese OTHER: Conversant. Awake, alert. HENMT: COMMON NORMALS: oropharynx normal Neck/C-Spine: COMMON NORMALS: no JVD Resp: COMMON NORMALS: normal respiratory effort and clear to auscultation bilaterally AUSCULTATION: clear to auscultation bilaterally Cardio: COMMON NORMALS: no JVD, regular rhythm, S1 normal heart sound, S2 normal heart sound and no murmurs RHYTHM: regular rhythm HEART SOUNDS: S1 normal and S2 normal GI: COMMON NORMALS: normal to inspection, nondistended, normoactive bowel sounds, soft to palpation and non-tender PALPATION: Yes soft Extremity: COMMON NORMALS: no joint enlargement and no pedal edema OTHER: Left AKA Neuro: COMMON NORMALS: oriented x3 and moves all extremities OTHER: Intermittent episodes of spasms in his left shoulder, arm, forearm and hand. Skin: COMMON NORMALS: no rashes or lesions noted GENERAL SKIN EXAM: no rashes or lesions noted Discharge Data Data Completed and Pending: Completed Studies During Hospitalization Category Date Time Status CT cervical spin wo con* [id number] Urge nt Cat Scan 12/30/19 18:[address] shoulder RT wo con* [id number] Routin e Cat Scan 12/31/19 18:07 Completed CV carotid duplex BI* [id number] Routine Ultrasound 12/31/19 16:23 [place] [id number] Urgent Ultrasound 12/30/19 12:42 Completed Pending at discharge Category Date Time Status EEG electroenceph alogram Urgent Exams 12/30/19 23:00 Ordered Labs from last 24 hours 01/03/20 01/03/20 01/03/20 11:30 06:54 05:10 Sodium 135 L Potassium 4.3 Chloride 99 Carbon Dioxide 24 Anion Gap 16.3 BUN 34 H Creatinine 1.6 H GFR Calculation 44.0 L Glucose 337 H POC Glucose 337 249 Calculated Osmolal ity 291 Calcium 10.3 01/02/20 01/02/20 20:38 16:34 Sodium Potassium Chloride Carbon Dioxide Anion Gap BUN Creatinine GFR Calculation Glucose POC Glucose 252 240 Calculated Osmolal ity Calcium Vitals: Last Vital Signs Temp 98.6 F 01/03/20 12:00 Pulse 60 01/03/20 12:00 Resp 18 01/03/20 12:00 BP 130/90 01/03/20 12:00 Pulse Ox 97 01/03/20 12:00 Discharge Plan Discharge Patient Disposition: Home, Self-Care Condition: Fair Prescriptions: New clopidogrel 75 mg tablet 75 mg PO DAILY Qty: 30 RF: 0 Keppra 500 mg tablet 500 mg PO BID Qty: 60 RF: 0 carisoprodol 350 mg Tablet 350 mg PO Q8H PRN (Reason: Pain) Qty: 42 RF: 0 acetaminophen 325 mg Tablet 650 mg PO Q6H PRN (Reason: Mild/Mod Pain Or Temp >/= 101) Qty: 60 RF: 0 Lantus Solostar U-100 Insulin 100 unit/mL (3 mL) insulin pen 10 unit SUBCUT DAILY Qty: 15 RF: 0 Humalog KwikPen Insulin 100 unit/mL insulin pen See Rx Instructions .ROUTE .COMPLEX Qty: 15 RF: 0 (DME) blood-glucose meter [Blood Glucose Monitoring] Kit See Rx Instructions .ROUTE .MEDSUPPLY Qty: 1 RF: 0 Continued atorvastatin 80 mg Tablet 80 mg PO DAILY RF: 0 acetaminophen 325 mg Tablet 325 mg PO QID PRN (Reason: Pain) RF: 0 albuterol sulfate 90 mcg/actuation Hfa Aerosol Inhaler 2 puff INHALATION QID PRN (Reason: Shortness Of Breath) RF: 0 pentoxifylline 400 mg Tablet Extended Release 400 mg PO TID RF: 0 ferrous sulfate 325 mg (65 mg iron) Tablet 325 mg PO DAILY RF: 0 gabapentin 300 mg Capsule 300 mg PO TID RF: 0 omeprazole 20 mg Capsule,Delayed Release(Dr/Ec) 40 mg PO DAILY RF: 0 furosemide 20 mg Tablet 20 mg PO DAILY RF: 0 losartan 100 mg Tablet 50 mg PO DAILY RF: 0 loratadine 10 mg Tablet 10 mg PO DAILY PRN (Reason: ALLERGIES) RF: 0 Multi-Vitamin HP/Minerals Capsule 1 cap PO DAILY RF: 0 cholecalciferol (vitamin D3) 2,000 unit Tablet 2,000 unit PO DAILY RF: 0 lidocaine 5 % Ointment See Rx Instructions .ROUTE .COMPLEX RF: 0 Combivent Respimat 20-100 mcg/actuation Mist 1 puff INHALATION QID RF: 0 senna 8.6 mg Capsule 8.6 mg PO DAILY PRN (Reason: Constipation) RF: 0 metoprolol tartrate 50 mg tablet 50 mg PO BID RF: 0 Discontinued aspirin [Aspir-81] 81 mg Tablet,Delayed Release (Dr/Ec) 81 mg PO DAILY RF: 0 Discharge Orders: Discharge Order (Routine); Ordered 01/03/20 Ordered By: Pasquale Lentz Referrals: Danny Laboy MD [Referring] - (Please call Sunday to set up a follow up appointment. Soonest available appointment. Recurrent shoulder and arm spasms.) Mina Flores MD [Physician] - (Please call Sunday to set up a follow up appointment. After MRI is performed. Ideally after he is seen by neurology.) Fer Musa, [Primary Care Provider] - 4-7 days (Please call Sunday to set up a follow up appointment. you will also need to discuss having a MRI done with Dr. Musa so you can see Dr. Flores. R arm spasms) Discharge Diet: Diabetic Discharge Activity: Limit activity as instructed Patient Instructions: Carisoprodol (By mouth), Clopidogrel (By mouth), Levetiracetam (By mouth), Insulin Lispro Protamine/Insulin Lispro (Injection), Insulin Glargine (Injection), Weakness (GEN) Activity Restrictions/Additional Instructions: (To stapler coil unit: Please refer patient to MRI brain wwo contrast and MRI cervical spine without contrast at [facility] where such a procedure can be performed.) Mr Brown: Please make sure you do not drive just in case this may be a seizure. Have somebody else drive you to your appointments. Maintain seizure precautions at home. Follow-up should be arranged for you with the neurologist Dr. Laboy in [place] after you have the MRI done. After you have the MRI and see neurology, Dr. Flores with neurosurgery here will also want to see you for follow-up. Please make sure to check your blood glucose 4 times daily, record values to bring to your appointment with Dr. Musa. Please avoid any NSAIDs (medications like ibuprofen, Aleve, etc.) at home due to chronic kidney disease. Please speak with Dr Musa to have you referred for additional assessment by a blood doctor due to chronically low platelet level in your blood and have Dr Musa follow up on the level to see that it is not decreasing further. Discharge Attestations Time Spent in Discharge Care*: greater than 30 min Quality Metrics Clinical Quality Measures During this hospital stay, did patient experience: None Coding Level of Care Code Acute [facility] for [facility] Barthol[facility]w Diagnoses Abnormal movements R25.9 Intervertebral cervical disc disorder with myelopathy, cervical region M50.00 Diabetes mellitus E11.9
== END 2020-01-03 14:04 | disposition home or self-care (01) | DRG 556 ==
LOC: ER 17:28 → MEDSURG 18:26
PROVIDERS: Nurse Practitioner Family; Admitting Provider Internal Medicine; Emergency Provider Family Medicine; Family Provider Emergency Medicine Emergency Medical Services; PCP Emergency Medicine Emergency Medical Services; Visit Provider Internal Medicine
DX: M62.838 Other muscle spasm (principal); E87.1 Hypo-osmolality and hyponatremia; N17.9 Acute kidney failure, unspecified; M50.00 Cervical disc disorder with myelopathy, unspecified cervical region; M62.82 Rhabdomyolysis; D69.6 Thrombocytopenia, unspecified; N18.9 Chronic kidney disease, unspecified; E11.22 Type 2 diabetes mellitus with diabetic chronic kidney disease; Z86.718 Personal history of other venous thrombosis and embolism; J44.9 Chronic obstructive pulmonary disease, unspecified; I25.10 Atherosclerotic heart disease of native coronary artery without angina pectoris; Z79.899 Other long term (current) drug therapy; E78.5 Hyperlipidemia, unspecified; Z89.512 Acquired absence of left leg below knee; E11.51 Type 2 diabetes mellitus with diabetic peripheral angiopathy without gangrene; G25.3 Myoclonus; F40.240 Claustrophobia; Z87.891 Personal history of nicotine dependence; Z79.02 Long term (current) use of antithrombotics/antiplatelets; Z79.4 Long term (current) use of insulin
CPT/HCPCS: 12345; 36415; 36416; 36600; 72125; 73200; 80048; 80053; 82009; 82550; 82803; 82962; 83036; 83735; 85025; 85378; 85610; 85730; 93880; 93971; 94640; 96372; 96375; 99282; G0378; J1644; J1815; J2060; J2270; J2360; J3535; J7030

== ENCOUNTER → 2020-01-14 11:34 | Outpatient (BNVA) | payer OTHER, SELFPAY | PROVIDERS: Family Provider Emergency Medicine Emergency Medical Services; PCP Emergency Medicine Emergency Medical Services; Referring Provider Emergency Medicine Emergency Medical Services; Visit Provider Orthopaedic Surgery | DX: M25.512 Pain in left shoulder (principal); M19.012 Primary osteoarthritis, left shoulder | CPT/HCPCS: 73030 ==

== ENCOUNTER → 2020-03-09 16:26 | Outpatient (BNVA) | payer OTHER, SELFPAY | PROVIDERS: Family Provider Emergency Medicine Emergency Medical Services; PCP Emergency Medicine Emergency Medical Services; Visit Provider Urology | DX: R31.0 Gross hematuria (principal); R33.8 Other retention of urine; N39.9 Disorder of urinary system, unspecified; N30.90 Cystitis, unspecified without hematuria | CPT/HCPCS: 81001 ==

== ENCOUNTER 2020-03-31 06:00 | Outpatient (RCR) | payer OTHER, SELFPAY | END 2020-04-11 23:59 | disposition home or self-care (01) | LOC: TPT 06:00 | PROVIDERS: PCP Emergency Medicine Emergency Medical Services; Referring Provider Emergency Medicine Emergency Medical Services; Visit Provider Emergency Medicine Emergency Medical Services | DX: S88 Traumatic amputation of lower leg (principal); X58.XXXS Exposure to other specified factors, sequela | CPT/HCPCS: 97110; 97161 ==

== ENCOUNTER 2020-04-12 06:00 | Outpatient (RCR) | payer OTHER, SELFPAY | END 2020-05-11 23:59 | disposition home or self-care (01) | LOC: TPT 06:00 | PROVIDERS: PCP Emergency Medicine Emergency Medical Services; Visit Provider Emergency Medicine Emergency Medical Services | DX: S88.012D Complete traumatic amputation at knee level, left lower leg, subsequent encounter (principal); X58.XXXD Exposure to other specified factors, subsequent encounter | CPT/HCPCS: 97110 ==

== ENCOUNTER 2020-05-06 12:03 | Outpatient (RCR) | payer OTHER, SELFPAY | END 2020-05-11 23:59 | disposition home or self-care (01) | LOC: SPT 12:03 | PROVIDERS: PCP Emergency Medicine Emergency Medical Services; Visit Provider Emergency Medicine Emergency Medical Services | DX: I89.0 Lymphedema, not elsewhere classified (principal) | CPT/HCPCS: 97140; 97161 ==

== ENCOUNTER 2020-05-12 12:03 | Outpatient (CLI) | payer OTHER, SELFPAY ==
--- NOTE | 2020-05-12 12:13 | MR_ITS ---
WS: [id number] MRI BRAIN WITH AND WITHOUT CONTRAST HISTORY: SEIZURE LIKE ACTIVITY COMPARISON: CT head 12/28/2019 TECHNIQUE: Multiplanar imaging performed through the brain with Prohance 17 ml's IV. Significant motion artifact on all sequences. No acute infarcts are seen. Bautista-white matter differentiation is well preserved. Mild atrophy and mil d chronic microvascular ischemic disease. There is some motion artifact causing artifact through the hippocampal formations. Hippocampal formations are symmetric with mild volume loss. No sclerosis. No susceptibility artifacts or prior lacunar infarcts. Clivus and pituitary gland as visualized are normal. Visualized posterior fossa and brainstem are also normal. Postcontrast images are negative for masses or vascular malformations. Dural venous sinuses are normal. Paranasal sinuses: LEFT frontal sinus mucosal retention cyst. Mastoid air cells: Normal. Calvarium and scalp: Normal. MR/MR head wo/w con [id number] IMPRESSION: 1. Study is limited by motion artifact. 2. Mild atrophy and chronic ischemic disease. 3. No enhancing masses. 4. Very mild atrophy of the temporal lobes and hippocampal formations.
== END 2020-05-12 12:04 | disposition home or self-care (01) ==
PROVIDERS: Family Provider Emergency Medicine Emergency Medical Services; PCP Emergency Medicine Emergency Medical Services; Visit Provider Emergency Medicine Emergency Medical Services
DX: R56.9 Unspecified convulsions (principal); I67.82 Cerebral ischemia; G31.9 Degenerative disease of nervous system, unspecified
CPT/HCPCS: 70553; A9579

== ENCOUNTER 2020-05-13 | Outpatient (RCR) | payer OTHER, SELFPAY | END 2020-05-13 23:00 | disposition home or self-care (01) | LOC: SPT | PROVIDERS: PCP Emergency Medicine Emergency Medical Services; Visit Provider Emergency Medicine Emergency Medical Services | DX: I89.0 Lymphedema, not elsewhere classified (principal); S88.012D Complete traumatic amputation at knee level, left lower leg, subsequent encounter; X58.XXXD Exposure to other specified factors, subsequent encounter | CPT/HCPCS: 97140 ==

== ENCOUNTER 2020-06-02 10:25 | Emergency (ER) | payer OTHER, SELFPAY ==
[2020-06-02 10:38] VITALS: BP 147/75; PULSE 61; RESP 17; TEMP 36.4; O2SAT 96; BMI 34.8
[2020-06-02 12:07] VITALS: RESP 18
--- NOTE | 2020-06-02 12:13 | XR_ITS ---
WS: [id number] RIGHT KNEE: 3 VIEW(S) TECHNIQUE: AP, oblique(s) and lateral. HISTORY: twisting injury/pain COMPARISON: None available. No fracture or dislocation. No joint space narrowing or osteophytes. No joint effusion. No soft tissue abnormality. XR/XR knee RT 3V* [id number] IMPRESSION: Normal RIGHT knee.
--- NOTE | 2020-06-02 12:14 | ED_ITS ---
HPI - Extremity Injury (Lower) General: Chief Complaint: Fall Stated Complaint: FALL Time Seen by Provider: 06/02/20 11:53 Source: patient Mode of arrival: wheelchair Limitations: no limitations History of Present Illness: HPI Narrative: Patient is a 64-year-old male who presents to ED today with complaint of right knee pain. Patient tells me he was getting into his car approximately a week ago when his prosthetic leg on his left side when out causing him to twist his right knee and slide down the vehicle. Patient denies any other injury sustained during the incident. Apolinar ross tells me he has been slightly ambulatory on the right leg but has continued to experience pain. complaint: knee injury Onset (ago): day(s) Injury: Right: knee Place: home Severity: moderate Relieving factors: immobilization Exacerbating factors: weight bearing, movement and palpation Context: other (twisted) Other symptoms: none Review of Systems Musc: Reports: joint pain (R knee); Denies: neck pain, back pain, extremity pain, extremity swelling or joint swelling Neuro: Reports: numbness in extremities (chronic from DM neuropathy) [facility] ED PFSH: Medical History (Updated 06/02/20 @ 12:42 by APOLINAR Deshpande) CAD (coronary artery disease) Cervical disc disorder with myelopathy of mid-cervical region COPD (chronic obstructive pulmonary disease) Degenerative joint disease of left shoulder Diabetes mellitus New diagnosis History of DVT (deep vein thrombosis) December 2018 Muscle spasm of right shoulder Myoclonus dystonia PVD (peripheral vascular disease) Surgical History H/O hernia repair History of femoropopliteal bypass S/P AKA (above knee amputation) unilateral Family History Father Diabetes Brother Diabetes Grandmother Diabetes Social History Smoking and tobacco status: former smoker Alcohol intake: current Alcohol intake frequency: few times a month Household members: significant other Marital status: Single Current occupational status: retired 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 History of recent travel: No Physical Exam Const: COMMON NORMALS: no acute distress, patient oriented x3, no limitations and alert Extremity: OTHER: L BKA; pt has tenderness to lateral aspect of R knee; there is no swelling appreciated; he maintains full ROM of joint; no distal swelling; extremity is warm with palpable DP/PT pulses Neuro: COMMON NORMALS: patient oriented x3, no focal motor deficits and no sensory deficits noted SENSORIUM/ORIENTATION: Yes alert Course Vital Signs: Vital signs: Vital Signs Temperature 97.5 F L 06/02/20 10:38 Pulse Rate 61 06/02/20 10:38 Respiratory Rate 18 06/02/20 12:07 Blood Pressure 147/75 06/02/20 10:38 Pulse Oximetry 96 06/02/20 10:38 MDM - Extremity Injury (Lower) Imaging Data^: R knee XR: Radiologist's impression: [address] [address] XRay Report Signed Patient: Jeffrey Brown Unit #: [id number] : 1955 Age/Sex: 64 / M ADM Date: 06/02/20 Loc: ER Room/Bed: Attending Dr: Ordering Provider/Ordering MD: Avelina Lewis Date of Service: 06/02/20 Procedure(s): XR knee RT 3V* [id number] Accession Number(s): [id number] Report Number: [id number] WS: [id number] RIGHT KNEE: 3 VIEW(S) TECHNIQUE: AP, oblique(s) and lateral. HISTORY: twisting injury/pain COMPARISON: None available. No fracture or dislocation. No joint space narrowing or osteophytes. No joint effusion. No soft tissue abnormality. XR/XR knee RT 3V* [id number] IMPRESSION: Normal RIGHT knee. Dictated By: Ansley Marhs DO Signed By: Ansley Marsh DO Signed Date/Time: 06/02/20 1231 DD/ 1230 Discharge Plan Discharge Patient Disposition: Home, Self-Care Clinical Impression: Acute pain of right knee Condition: Stable Prescriptions: No Action lidocaine HCl 2 % jelly 1 applic INTRA-URET ONCE Qty: 1 RF: 0 atorvastatin 80 mg Tablet 80 mg PO DAILY RF: 0 acetaminophen 325 mg Tablet 325 mg PO QID PRN (Reason: Pain) RF: 0 albuterol sulfate 90 mcg/actuation Hfa Aerosol Inhaler 2 puff INHALATION QID PRN (Reason: Shortness Of Breath) RF: 0 ferrous sulfate 325 mg (65 mg iron) Tablet 325 mg PO DAILY RF: 0 gabapentin 300 mg Capsule 300 mg PO TID RF: 0 omeprazole 20 mg Capsule,Delayed Release(Dr/Ec) 40 mg PO DAILY RF: 0 furosemide 20 mg Tablet 20 mg PO DAILY RF: 0 Multi-Vitamin HP/Minerals Capsule 1 cap PO DAILY RF: 0 cholecalciferol (vitamin D3) 2,000 unit Tablet 2,000 unit PO DAILY RF: 0 lidocaine 5 % Ointment See Rx Instructions .ROUTE .COMPLEX RF: 0 Combivent Respimat 20-100 mcg/actuation Mist 1 puff INHALATION QID RF: 0 loratadine 10 mg tablet 10 mg PO DAILY PRN (Reason: ALLERGIES) RF: 0 losartan 100 mg tablet 50 mg PO DAILY RF: 0 pentoxifylline 400 mg tablet extended release 400 mg PO TID RF: 0 senna 8.6 mg Capsule 8.6 mg PO DAILY PRN (Reason: Constipation) RF: 0 metoprolol tartrate 50 mg tablet 50 mg PO BID RF: 0 clopidogrel 75 mg tablet 75 mg PO DAILY Qty: 30 RF: 0 Keppra 500 mg tablet 500 mg PO BID Qty: 60 RF: 0 carisoprodol 350 mg Tablet 350 mg PO Q8H PRN (Reason: Pain) Qty: 42 RF: 0 acetaminophen 325 mg Tablet 650 mg PO Q6H PRN (Reason: Mild/Mod Pain Or Temp >/= 101) Qty: 60 RF: 0 Lantus Solostar U-100 Insulin 100 unit/mL (3 mL) insulin pen 10 unit SUBCUT DAILY Qty: 15 RF: 0 Humalog KwikPen Insulin 100 unit/mL insulin pen See Rx Instructions .ROUTE .COMPLEX Qty: 15 RF: 0 (DME) Blood Glucose Monitoring Kit See Rx Instructions .ROUTE .MEDSUPPLY Qty: 1 RF: 0 Discharge Orders: Discharge Order (Routine); Ordered 06/02/20 Ordered By: Avelina Lewis Referrals: Fer Musa DO [Primary Care Provider] - Activity Restrictions/Additional Instructions: [facility] Discharge Date/Time: 06/02/20 12:56 Coding Level of Care Code ED Hot Repairman for Chg Fwd Exam Expanded Problem Focused
== END 2020-06-02 12:56 | disposition home or self-care (01) ==
PROVIDERS: Emergency Provider Physician Assistant; PCP Emergency Medicine Emergency Medical Services
DX: M25.561 Pain in right knee (principal); Z79.02 Long term (current) use of antithrombotics/antiplatelets; Z79.4 Long term (current) use of insulin; Z87.891 Personal history of nicotine dependence; I25.10 Atherosclerotic heart disease of native coronary artery without angina pectoris; J44.9 Chronic obstructive pulmonary disease, unspecified; E11.9 Type 2 diabetes mellitus without complications; Z89.619 Acquired absence of unspecified leg above knee
CPT/HCPCS: 12345; 73562; 99282

== ENCOUNTER 2020-06-12 06:00 | Outpatient (RCR) | payer OTHER, SELFPAY | END 2020-07-12 23:59 | disposition home or self-care (01) | LOC: TPT 06:00 | PROVIDERS: PCP Emergency Medicine Emergency Medical Services; Visit Provider Emergency Medicine Emergency Medical Services | DX: S88.012D Complete traumatic amputation at knee level, left lower leg, subsequent encounter (principal); X58.XXXD Exposure to other specified factors, subsequent encounter; I89.0 Lymphedema, not elsewhere classified | CPT/HCPCS: 97110 ==

== ENCOUNTER → 2020-07-09 15:40 | Outpatient (BNVA) | payer OTHER, SELFPAY | PROVIDERS: PCP Emergency Medicine Emergency Medical Services; Visit Provider Nurse Practitioner | DX: R30.0 Dysuria (principal); N39.0 Urinary tract infection, site not specified | CPT/HCPCS: 81000; 87086 ==

== ENCOUNTER 2020-07-13 06:00 | Outpatient (RCR) | payer OTHER, SELFPAY | END 2020-08-11 23:59 | disposition home or self-care (01) | LOC: TPT 06:00 | PROVIDERS: PCP Emergency Medicine Emergency Medical Services; Visit Provider Emergency Medicine Emergency Medical Services | DX: Z89.522 Acquired absence of left knee (principal) | CPT/HCPCS: 97110 ==

== ENCOUNTER 2020-08-24 15:13 | Outpatient (CLI) | payer OTHER, SELFPAY ==
--- NOTE | 2020-08-24 15:23 | MR_ITS ---
WS: [id number] MRI LUMBAR SPINE NONCONTRAST HISTORY: LOW BACK PAIN COMPARISON: None available. TECHNIQUE: Sagittal and axial multisequence imaging is submitted. Mild increase in the thoracic kyphosis. Very mild straightening of the normal lumbar lordosis with LEFT convex curvature. Mild disc space narrowing and desiccation throughout the lumbar spine. Most significant disc degenera tion at L5-S1. No marrow edema or fracture. Conus terminates normally at L1-2 disc level. L1-L2: Mild disc bulging and facet arthritis. No stenosis. L2-L3: Mild annular disc bulging and osteophytic ridging. Mild ligamentum flavum disease and facet ar thritis. There is very mild narrowing of the lateral recesses. No significant stenosis. L3-L4: Mild annular disc bulging and osteophytic ridging with facet and ligamentum flavum hypertrophy . Mild increased amount of epidural fat. Very mild narrowing of the subarticular recesses and LEFT fo ramen. L4-L5: Diffuse annular disc bulging and osteophytic ridging. Mild ligamentum flavum hypertrophy and f acet arthritis. No significant stenosis. L5-S1: Mild annular disc bulging and facet and ligamentum flavum hypertrophy. Facet osteophytes encro aching into the foramen bilaterally. Moderate LEFT and mild RIGHT foraminal stenosis. There is also b road-based disc bulge extending into the LEFT foramen contributing to the foraminal stenosis. MR/MR lumbar spine wo con* [id number] IMPRESSION: 1. Moderate LEFT foraminal stenosis due to disc protrusion and facet arthritis at L5-S1. Moderate encroachment upon the LEFT L5 nerve root. 2. Mild LEFT foraminal stenosis at L3-4. 3. Mild degenerative disc disease throughout the lumbar spine, most significan t at L5-S1.
== END 2020-08-24 15:14 | disposition home or self-care (01) ==
LOC: RADSHAW 15:22
PROVIDERS: PCP Emergency Medicine Emergency Medical Services; Visit Provider Emergency Medicine Emergency Medical Services
DX: M48.07 Spinal stenosis, lumbosacral region (principal); M51.27 Other intervertebral disc displacement, lumbosacral region; M48.061 Spinal stenosis, lumbar region without neurogenic claudication; M51.37 Other intervertebral disc degeneration, lumbosacral region
CPT/HCPCS: 72148

== ENCOUNTER 2020-08-30 13:01 | Inpatient (IN) | payer OTHER, MEDICARE, SELFPAY ==
[2020-08-30] VITALS (7 sets, daily range): BP systolic 134–195; BP diastolic 75–90; PULSE 98–114; RESP 16–24; TEMP 37.1–37.6; O2SAT 92–95; BMI 34.8
--- NOTE | 2020-08-30 14:09 | XRR_ITS ---
PROCEDURE INFORMATION: Exam: XR Chest, 1 View Exam date and time: 08/30/2020 2:28 PM Age: 65 years old Clinical indication: Condition or disease; Other: Covid TECHNIQUE: Imaging protocol: XR of the chest Views: 1 view. COMPARISON: No relevant prior studies available. FINDINGS: Lungs: Unremarkable. No consolidation. Pleural space: Unremarkable. No pleural effusion. No pneumothorax. Heart/Mediastinum: Unremarkable. No cardiomegaly. Bones/joints: Unremarkable. XR/XR chest 1V portable [id number] IMPRESSION: No acute findings.
--- NOTE | 2020-08-30 14:12 | W.ED.COVID ---
HPI - COVID General: Chief Complaint: COVID symptoms Stated Complaint: sob/ shivered/ fever Time Seen by Provider: 08/30/20 13:53 Triage information: Has fever, cough or shortness of breath. No known COVID + exposure last 14 days History of Present Illness: HPI Narrative: This patient is a 65-year-old male presenting with complaints of shortness of breath, fever, chills. He is not aware of any Covid exposures. He was tested in the remote past but not recently. His symptoms started in the early hours of this morning. He feels terrible all over. He has chronic back pain from a swelled disc. COVID 19 common symptoms: positive fever(s), chills, non-productive cough, dyspnea and fatigue; negative productive cough, headache(s), nausea or vomiting COVID 19 other sytmptoms: negative chest pain COVID Results: SARS-CoV-2 Antigen (Rapid) Negative (Negative) 08/30/20 14:20 08/30/20 Nasal/Oral Coronavirus 2019 PCR Pending 08/30/20 15:40 08/30/20 Review of Systems General: Reports: 10 or more systems reviewed and unremarkable except in HPI and below Const: Reports: fever(s), chills, fatigue and malaise Eyes: Denies: change in vision ENMT: Denies: odynophagia Card: Denies: chest pain or swelling of feet/ankles Resp: Reports: dyspnea and non-productive cough; Denies: productive cough GI: Reports: abdominal pain; Denies: nausea or vomiting : Denies: flank pain Musc: Reports: back pain; Denies: neck pain Skin/Breast: Denies: rash Neuro: Denies: headache(s), numbness in extremities or weakness in extremities Jesús/Lymph: Denies: easy bruising or easy bleeding PFSH ED PFSH: Medical History (Updated 08/30/20 @ 17:38 by Chris Gonzalez MD) Above-knee amputation of left lower extremity Diabetes mellitus type 2 in obese Frequent UTI Hepatitis C Obesity (BMI 30.0-34.9) Peripheral vascular disease Tobacco abuse Family History (Updated 08/30/20 @ 17:18 by Chris Gonzalez MD) Mother COPD (chronic obstructive pulmonary disease) Father No problems noted. Social History (Updated 08/30/20 @ 17:18 by Chris Gonzalez MD) Smoking and tobacco status: current every day smoker Smoking risk assessment/counseling performed?: Yes Alcohol intake: current Alcohol intake frequency: holidays/special occasions only Alcohol type: beer Desire information about alcohol rehabilitation?: No Counseling given: No Substance/Drug Use: never Physical Exam Narrative: EXAM NARRATIVE: Awake and alert with a room air pulse ox of 97%. On observation however he looks cyanotic however his pulse ox is normal. Const: COMMON NORMALS: no acute distress, patient oriented x3, no limitations and alert GENERAL APPEARANCE: cooperative HENMT: HEAD & SCALP: normal to inspection FACE & SINUS: normal facial exam Eye: GENERAL EYE: appearance normal, both eyes and all related structures Neck/C-Spine: COMMON NORMALS: supple, no meningeal signs and no JVD Chest: COMMONS NORMALS: normal inspection of the chest Resp: EFFORT & INSPECTION: Yes tachypneic (Slight) and Yes labored (Slight) AUSCULTATION: diminished lung sounds Cardio: COMMON NORMALS: no JVD, regular rate, regular rhythm and No murmurs present (Cardio) RATE: regular rate RHYTHM: regular rhythm GI: COMMON NORMALS: Normal to inspection, nondistended, normoactive bowel sounds present, Soft to palpation and non-tender INSPECTION: Yes normal to inspection AUSCULTATION: Yes normoactive bowel sounds PALPATION: Yes Soft to palpation Back/Pelvis: COMMON NORMALS: thoracic and lumbar spine normal to inspection Extremity: COMMON NORMALS: normal to inspection OTHER: Status post left AKA Neuro: COMMON NORMALS: patient oriented x3, moves all extremities, no focal motor deficits and no sensory deficits noted SENSORIUM/ORIENTATION: Yes alert MENINGEAL SIGNS: Yes no meningeal signs Psych: COMMON NORMALS: mental status grossly normal, cooperative and normal affect Skin: COMMON NORMALS: no rashes or lesions noted and turgor normal GENERAL SKIN EXAM: no rashes or lesions noted and turgor normal Course ED course: This patient has multiple comorbidities. He presents very subjectively short of breath. His oxygen saturation is adequate but not great. His chest x-ray to me looks like it has some diffuse infiltrates. His Covid was negative but a PCR is pending. We will admit for further management and rule out of Covid. Vital Signs: Vital signs: Vital Signs Temperature 98.7 F 08/30/20 20:00 Pulse Rate 98 08/30/20 20:00 Respiratory Rate 23 H 08/30/20 20:00 Blood Pressure 149/90 08/30/20 20:00 Pulse Oximetry 95 08/30/20 20:00 MDM - COVID Lab Data Result diagrams: 08/30/20 14:15 08/30/20 14:15 Labs: Lab Results 08/30/20 08/30/20 08/30/20 Range/Units 14:15 14:15 14:15 WBC 9.5 (4.0-10.0) 10^3/uL RBC 4.92 (4.1-5.3) 10^6/uL Hgb 15.4 (11.7-16.6) g/dL Hct 47.5 (42.0-52.0) % MCV 96.5 H (80-94) fL MCH 31.3 (28.0-34.0) pg MCHC 32.4 (30.0-36.0) g/dL RDW 13.9 (12.1-15.1) % Plt Count 60 L (130-400) 10^3/cmm MPV 10.1 (7.4-10.4) fL Neut % (Auto) 81.4 % Lymph % (Auto) 11.5 % [place] % (Auto) 4.7 % Eos % (Auto) 1.9 % Baso % (Auto) 0.3 % Neut # (Auto) 7.71 H (1.8-7.7) 10^3/uL Lymph # (Auto) 1.1 (0.8-4.8) 10^3/uL [place] # (Auto) 0.5 (0.2-0.9) 10^3/uL Eos # (Auto) 0.2 (0.0-0.8) 10^3/uL Baso # (Auto) 0.0 (0.0-0.1) 10^3/uL Nucleated RBC % (auto) 0 % Nucleated RBCs # 0.0 /100WBC PT 13.00 (12.1-14.9) SECONDS INR 0.95 (0.8-1.2) Fibrinogen 308 (174-498) mg/dL D-Dimer 0.49 (0-0.59) ug/mIFEU Sodium 142 (136-145) mmol/L Potassium 4.5 (3.5-5.1) mmol/L Chloride 105 (98-107) mmol/L Carbon Dioxide 24 (22-29) mmol/L Anion Gap 17.5 (5-19) BUN 33 H (8-23) mg/dL Creatinine 1.8 H (0.7-1.2) mg/dL GFR Calculation 38.3 L (90-130) mL/min Glucose 114 (65-115) mg/dL Calculated Osmolality 302 H (285-295) mOsm/kg Lactic Acid (0.5-2.2) mmol/L Calcium 9.5 (8.5-10.5) mg/dL Magnesium 1.7 (1.7-2.3) mg/dL Ferritin 158 (30-400) ng/mL Total Bilirubin 0.5 (0.15-1.2) mg/dL AST 77 H (0-40) U/L ALT 103 H (0-41) U/L Alkaline Phosphatase 58 (40-130) IU/L Lactate Dehydrogenase 309 H (135-225) U/L C-Reactive Protein 6.2 H (0.0-4.9) mg/L NT-Pro-B Natriuret Pep 167 H (0-125) pg/mL Total Protein 7.5 (6.6-8.7) g/dL Albumin 4.5 (3.5-5.2) g/dL Globulin 3.0 (1.3-4.6) g/dL Procalcitonin 0.15 (0-0.5) ng/mL Urine Color (Yellow) Urine Appearance (CLEAR) Urine pH (5-7) Ur Specific [place] (1.005-1.030) Urine Protein (Negative) Urine Glucose (UA) (Normal) Urine Ketones (Negative) Urine Blood (Negative) Urine Nitrate (Negative) Urine Bilirubin (Negative) Urine Urobilinogen (Negative) mg/dL Ur Leukocyte Esterase (Negative) Influenza Type A Ag (Negative) Influenza Type B Ag (Negative) SARS-CoV-2 Ag (Rapid) (Negative) 08/30/20 08/30/20 08/30/20 Range/Units 14:15 14:20 14:20 WBC (4.0-10.0) 10^3/uL RBC (4.1-5.3) 10^6/uL Hgb (11.7-16.6) g/dL Hct (42.0-52.0) % MCV (80-94) fL MCH (28.0-34.0) pg MCHC (30.0-36.0) g/dL RDW (12.1-15.1) % Plt Count (130-400) 10^3/cmm MPV (7.4-10.4) fL Neut % (Auto) % Lymph % (Auto) % [place] % (Auto) % Eos % (Auto) % Baso % (Auto) % Neut # (Auto) (1.8-7.7) 10^3/uL Lymph # (Auto) (0.8-4.8) 10^3/uL [place] # (Auto) (0.2-0.9) 10^3/uL Eos # (Auto) (0.0-0.8) 10^3/uL Baso # (Auto) (0.0-0.1) 10^3/uL Nucleated RBC % (auto) % Nucleated RBCs # /100WBC PT (12.1-14.9) SECONDS INR (0.8-1.2) Fibrinogen (174-498) mg/dL D-Dimer (0-0.59) ug/mIFEU Sodium (136-145) mmol/L Potassium (3.5-5.1) mmol/L Chloride (98-107) mmol/L Carbon Dioxide (22-29) mmol/L Anion Gap (5-19) BUN (8-23) mg/dL Creatinine (0.7-1.2) mg/dL GFR Calculation (90-130) mL/min Glucose (65-115) mg/dL Calculated Osmolality (285-295) mOsm/kg Lactic Acid 2.4 H (0.5-2.2) mmol/L Calcium (8.5-10.5) mg/dL Magnesium (1.7-2.3) mg/dL Ferritin (30-400) ng/mL Total Bilirubin (0.15-1.2) mg/dL AST (0-40) U/L ALT (0-41) U/L Alkaline Phosphatase (40-130) IU/L Lactate Dehydrogenase (135-225) U/L C-Reactive Protein (0.0-4.9) mg/L NT-Pro-B Natriuret Pep (0-125) pg/mL Total Protein (6.6-8.7) g/dL Albumin (3.5-5.2) g/dL Globulin (1.3-4.6) g/dL Procalcitonin (0-0.5) ng/mL Urine Color (Yellow) Urine Appearance (CLEAR) Urine pH (5-7) Ur Specific [place] (1.005-1.030) Urine Protein (Negative) Urine Glucose (UA) (Normal) Urine Ketones (Negative) Urine Blood (Negative) Urine Nitrate (Negative) Urine Bilirubin (Negative) Urine Urobilinogen (Negative) mg/dL Ur Leukocyte Esterase (Negative) Influenza Type A Ag Negative (Negative) Influenza Type B Ag Negative (Negative) SARS-CoV-2 Ag (Rapid) Negative (Negative) 08/30/20 Range/Units 14:20 WBC (4.0-10.0) 10^3/uL RBC (4.1-5.3) 10^6/uL Hgb (11.7-16.6) g/dL Hct (42.0-52.0) % MCV (80-94) fL MCH (28.0-34.0) pg MCHC (30.0-36.0) g/dL RDW (12.1-15.1) % Plt Count (130-400) 10^3/cmm MPV (7.4-10.4) fL Neut % (Auto) % Lymph % (Auto) % [place] % (Auto) % Eos % (Auto) % Baso % (Auto) % Neut # (Auto) (1.8-7.7) 10^3/uL Lymph # (Auto) (0.8-4.8) 10^3/uL [place] # (Auto) (0.2-0.9) 10^3/uL Eos # (Auto) (0.0-0.8) 10^3/uL Baso # (Auto) (0.0-0.1) 10^3/uL Nucleated RBC % (auto) % Nucleated RBCs # /100WBC PT (12.1-14.9) SECONDS INR (0.8-1.2) Fibrinogen (174-498) mg/dL D-Dimer (0-0.59) ug/mIFEU Sodium (136-145) mmol/L Potassium (3.5-5.1) mmol/L Chloride (98-107) mmol/L Carbon Dioxide (22-29) mmol/L Anion Gap (5-19) BUN (8-23) mg/dL Creatinine (0.7-1.2) mg/dL GFR Calculation (90-130) mL/min Glucose (65-115) mg/dL Calculated Osmolality (285-295) mOsm/kg Lactic Acid (0.5-2.2) mmol/L Calcium (8.5-10.5) mg/dL Magnesium (1.7-2.3) mg/dL Ferritin (30-400) ng/mL Total Bilirubin (0.15-1.2) mg/dL AST (0-40) U/L ALT (0-41) U/L Alkaline Phosphatase (40-130) IU/L Lactate Dehydrogenase (135-225) U/L C-Reactive Protein (0.0-4.9) mg/L NT-Pro-B Natriuret Pep (0-125) pg/mL Total Protein (6.6-8.7) g/dL Albumin (3.5-5.2) g/dL Globulin (1.3-4.6) g/dL Procalcitonin (0-0.5) ng/mL Urine Color Yellow (Yellow) Urine Appearance Clear (CLEAR) Urine pH 5 (5-7) Ur Specific [place] 1.020 (1.005-1.030) Urine Protein Neg (Negative) Urine Glucose (UA) Norm (Normal) Urine Ketones Negative (Negative) Urine Blood Neg (Negative) Urine Nitrate Negative (Negative) Urine Bilirubin Neg (Negative) Urine Urobilinogen 1 H (Negative) mg/dL Ur Leukocyte Esterase Negative (Negative) Influenza Type A Ag (Negative) Influenza Type B Ag (Negative) SARS-CoV-2 Ag (Rapid) (Negative) COVID Results: SARS-CoV-2 Antigen (Rapid) Negative (Negative) 08/30/20 14:20 08/30/20 Nasal/Oral Coronavirus 2019 PCR Pending 08/30/20 15:40 08/30/20 Discharge Plan Discharge Patient Disposition: Admitted As Inpatient Admit Provider: Chris Gonzalez Discharge Date/Time: 08/30/20 17:53 Coding Level of Care Code 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
[2020-08-30 14:31] LABS: Basophils % 0.3 %; Eosinophils # 0.2 10^3/uL (0.0-0.8); Eosinophils % 1.9 %; Hematocrit 47.5 % (42.0-52.0); Hemoglobin 15.4 g/dL (11.7-16.6); Lymphocytes # 1.1 10^3/uL (0.8-4.8); Lymphocytes % 11.5 %; Mean Corpuscular HGB Conc 32.4 g/dL (30.0-36.0); Mean Corpuscular Hemoglobin 31.3 pg (28.0-34.0); Mean Corpuscular Volume 96.5 fL (80-94); Mean Platelet Volume 10.1 fL (7.4-10.4); Monocytes # 0.5 10^3/uL (0.2-0.9); Monocytes % 4.7 %; Neutrophils # 7.71 10^3/uL (1.8-7.7); Neutrophils % 81.4 %; Nucleated Red Blood Cells % 0 %; Platelet Count 60 10^3/cmm (130-400); Red Blood Count 4.92 10^6/uL (4.1-5.3); Red Cell Distribution Width 13.9 % (12.1-15.1); White Blood Count 9.5 10^3/uL (4.0-10.0)
[2020-08-30] MEDS: dexamethasone 4 mg/mL INJ 6 MG IVP (14:32)
[2020-08-30] MEDS: famotidine 20 mg/2 mL INJ IVP (14:37)
[2020-08-30 14:47] LABS: INR 0.95 (0.8-1.2)
[2020-08-30 14:48] LABS: Fibrinogen 308 mg/dL (174-498); Lactic Sepsis W/Reflex 2.4 mmol/L (0.5-2.2)
[2020-08-30 14:51] LABS: D Dimer 0.49 ug/mIFEU (0-0.59)
[2020-08-30 14:57] LABS: Influenza A by IFA Negative (Negative); Influenza B by IFA Negative (Negative); SARS Covid-2 Antigen Negative (Negative)
[2020-08-30 14:58] LABS: NT Pro B Type Natriuretic Pept 167 pg/mL (0-125); Procalcitonin 0.15 ng/mL (0-0.5)
[2020-08-30 15:10] LABS: Alanine Aminotransferase 103 U/L (0-41); Albumin Level 4.5 g/dL (3.5-5.2); Alkaline Phosphatase 58 IU/L (40-130); Anion Gap 17.5 (5-19); Aspartate Amino Transferase 77 U/L (0-40); Blood Urea Nitrogen 33 mg/dL (8-23); C Reactive Protein 6.2 mg/L (0.0-4.9); Calcium 9.5 mg/dL (8.5-10.5); Carbon Dioxide 24 mmol/L (22-29); Chloride 105 mmol/L (98-107); Ferritin 158 ng/mL (30-400); Glomerular Filtration Rate 38.3 mL/min (90-130); Glucose 114 mg/dL (65-115); Lactate Dehydrogenase 309 U/L (135-225); Magnesium 1.7 mg/dL (1.7-2.3); Osmolality Calculated 302 mOsm/kg (285-295); Potassium 4.5 mmol/L (3.5-5.1); Sodium 142 mmol/L (136-145); Total Bilirubin 0.5 mg/dL (0.15-1.2); Total Protein 7.5 g/dL (6.6-8.7)
[2020-08-30 16:12] LABS: Reflex Lactate Order REFLEX LACTIC ORDERD
--- NOTE | 2020-08-30 17:04 | P.HP_ITS ---
Providers/Chief Complaint Primary Care Provider: Fer Musa DO Chief Complaint: sob/ shivered/ fever History of Present Illness Jeffrey Brown is a 65 year old male presents to [facility] with shortness of breath, fever and chills as well as periumbilical abdominal pain radiating to the right groin and worsening urinary incontinence in the last 2 weeks. Patient continues to smoke and reports having chronic occasionally productive clear/yellowish phlegm cough which is unchanged in quality or quantity. Patient's oxygen saturation was 92% on room air. He denies burning on urination. Reports that in the last year he had 3-4 episodes of UTI. Last time he was treated for UTI was approximately 2 months ago. He gets his care at the [place] facility. He is diabetic but denies previous history of heart disease or stroke. He has left lower extremity above-knee amputation due to severe peripheral vascular disease. He denies any problems with bowel movement and denies previous history of melena or hematochezia. Review of Systems Narrative: Except as mentioned. Const: Reports: fever(s) and chills Eyes: Denies: change in vision ENMT: Denies: throat pain or change in hearing Card: Denies: chest pain, edema or lightheadedness Resp: Reports: dyspnea; Denies: productive cough GI: Reports: abdominal pain; Denies: nausea, vomiting, dysphagia, diarrhea, constipation, hematochezia or melena : Reports: difficulty urinating, urinary frequency, urinary dribbling, difficulty starting urination and urinary incontinence Musc: Denies: joint pain or joint swelling Skin/Breast: Denies: rash or erythema Neuro: Denies: headache(s) or weakness in extremities Psych: Denies: depression or suicidal ideation Endo: Denies: excessive sweating Jesús/Lymph: Denies: easy bleeding or tender lymph nodes All/Imm: Denies: throat swelling Medications/Allergies Allergies Allergy/AdvReac Type Severity Reaction Status Date / Time No Known Allergies Allergy Verified 08/30/20 13:35 PFSH Acute PFSH: Medical History (Updated 08/30/20 @ 17:38 by Chris Gonzalez MD) Above-knee amputation of left lower extremity Diabetes mellitus type 2 in obese Frequent UTI Hepatitis C Obesity (BMI 30.0-34.9) Peripheral vascular disease Tobacco abuse Family History (Updated 08/30/20 @ 17:18 by Chris Gonzalez MD) Mother COPD (chronic obstructive pulmonary disease) Father No problems noted. Social History (Updated 08/30/20 @ 17:18 by Chris Gonzalez MD) Smoking and tobacco status: current every day smoker Smoking risk assessment/counseling performed?: Yes Alcohol intake: current Alcohol intake frequency: holidays/special occasions only Alcohol type: beer Desire information about alcohol rehabilitation?: No Counseling given: No Substance/Drug Use: never Vitals/I&O/Wt Last Vital Signs Temp 98.8 F 08/30/20 13:30 Pulse 112 H 08/30/20 16:30 Resp 18 08/30/20 13:30 BP 195/81 08/30/20 13:30 Pulse Ox 92 08/30/20 16:30 Weight last 48 hrs Weight 113.398 kg Physical Exam Const: COMMON NORMALS: no acute distress (Lays flat and breathing comfortably.), patient oriented x3 and alert HENMT: COMMON NORMALS: normocephalic and atraumatic HEAD & SCALP: normocephalic and atraumatic Eye: COMMON NORMALS: EOMs intact bilaterally, conjunctivae normal and no scleral icterus CONJUNCTIVA: Yes conjunctivae normal Neck/C-Spine: COMMON NORMALS: no lymphadenopathy and no meningeal signs Lymph: LYMPHATIC: no lymphadenopathy noted Chest: COMMONS NORMALS: normal palpation of entire chest wall Resp: COMMON NORMALS: No use of accessory muscles and clear to auscultation bilaterally AUSCULTATION: clear to auscultation bilaterally Cardio: COMMON NORMALS: regular rate, regular rhythm and No murmurs present (Cardio) RATE: regular rate RHYTHM: regular rhythm OTHER: No lower extremity edema GI: COMMON NORMALS: Soft to palpation PALPATION: Yes Soft to palpation RECTAL EXAM: Yes deferred OTHER: Slightly tender at periumbilical area and right lower quadrant on deep palpation : COMMON NORMALS: Yes no CVA tenderness BLADDER/KIDNEY EXAM: Yes no CVA tenderness Back/Pelvis: COMMON NORMALS: no CVA tenderness and thoracic and lumbar spine normal to inspection Extremity: COMMON NORMALS: normal to inspection and capillary refill normal Neuro: COMMON NORMALS: patient oriented x3 and no focal motor deficits SENSORIUM/ORIENTATION: Yes alert MENINGEAL SIGNS: Yes no meningeal signs Psych: COMMON NORMALS: mental status grossly normal, Normal thought process present and cooperative THOUGHT PROCESS: Normal thought process present Skin: COMMON NORMALS: no rashes or lesions noted GENERAL SKIN EXAM: no rashes or lesions noted Data : 08/30/20 14:15 08/30/20 14:15 A&P Assessment and plan (1) Dyspnea: Patient's dyspnea appears to be a result of febrile illness but otherwise does not appear to have acute cardiopulmonary problem Status: Acute (2) Subjective fever: Status: Acute (3) Diabetes mellitus type 2 in obese: Status: Acute (4) Obesity (BMI 30.0-34.9): Status: Acute (5) Tobacco abuse: Status: Acute (6) Hepatitis C: Untreated. [place] to be the cause of mild transaminitis and thrombocytopenia. Status: Acute (7) COPD (chronic obstructive pulmonary disease): Status: Acute (8) Acute kidney injury: Versus chronic kidney disease. Status: Acute (9) Thrombocytopenia: Most likely due to hepatitis C and/or suspected UTI Status: Acute (10) Suspected UTI: Status: Acute (11) Benign prostatic hyperplasia: Status: Acute (12) Hypertension: Status: Acute (13) Dehydration: Status: Acute Additional A&P Information PLAN: Will obtain renal CT for further evaluation of periumbilical pain radiating to the right quadrant as well as acute kidney injury and suspected UTI We will gently hydrate with IV fluids with close monitoring of cardiorespiratory status. Place Maciel catheter and document amount of urine immediately out. Reconcile medications and start after review Obtain blood cultures and UA and start patient on ceftriaxone. Obtain echocardiogram to evaluate wall motion and ejection fraction. Patient is at risk for ischemic cardiomyopathy. Mild underlying heart failure cannot be ruled out. Patient currently appears dehydrated on exam. Attestations Medical Necessity Statement*: Patient with what appears to be acute kidney injury, urinary obstruction and UTI requiring further inpatient monitoring, treatment and evaluation. I expect patient will require more than 2 midnights. 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
--- NOTE | 2020-08-30 17:04 | CTR_ITS ---
PROCEDURE INFORMATION: Exam: CT Abdomen And Pelvis Without Contrast Exam date and time: 08/30/2020 5:09 PM Age: 65 years old Clinical indication: Other: RT side groin pain; Additional info: Periumbilical pain radiating to the right groin and acute kidney injury TECHNIQUE: Imaging protocol: Computed tomography of the abdomen and pelvis without contrast. Radiation optimization: All CT scans at this facility use at least one of these dose optimization techniques: automated exposure control; mA and/or kV adjustment per patient size (includes targeted exams where dose is matched to clinical indication); or iterative reconstruction. COMPARISON: No relevant prior studies available. RADIATION DOSE METRICS: Total DLP (mGy-cm): 1374.52 FINDINGS: Lungs: Mild atelectasis versus fibrosis noted at the lung bases. Liver: Liver is enlarged measuring 20 cm in length. The margin of the liver appears irregular, raising concern for hepatic cirrhosis. No focal liver lesion demonstrated. Gallbladder and bile ducts: 7 mm calcified gallstone in the gallbladder. No gallbladder wall thickening or pericholecystic fluid. Pancreas: The pancreas is normal in appearance. Spleen: There is mild splenomegaly present. The spleen measures 13.5 cm in length. Adrenals: The adrenal glands appear within normal limits. Kidneys and ureters: The kidneys are morphologically normal. No nephrolithiasis. No hydronephrosis. No ureteral calculi. No obstructive uropathy. Stomach and bowel: No acute gastric abnormality demonstrated. The small bowel is unremarkable as demonstrated. No acute abnormality/inflammatory change of the colon. Appendix: No evidence of appendicitis. Intraperitoneal space: No pneumoperitoneum. No significant fluid collection. Vasculature: Left iliac artery stents are present. Atherosclerosis of the abdominal aorta. The aorta measures up to 2.7 cm in diameter. Lymph nodes: Shot[place] lymph nodes are seen in the aortocaval space. No pathologically enlarged nodes. Urinary bladder: The urinary bladder is unremarkable in appearance. Reproductive: Unremarkable as visualized. Bones/joints: Mild degenerative spine changes. No acute osseous abnormality. Soft tissues: Small bilateral inguinal hernias identified, containing only fat. CT/CT abdomen pelvis wo con [id number] IMPRESSION: 1. The kidneys are morphologically normal. No nephrolithiasis. No hydronephrosis. No ureteral calculi. Normal urinary bladder. No obstructive uropathy. 2. Liver is enlarged measuring 20 cm in length. The margin of the liver appears irregular, raising concern for hepatic cirrhosis. No focal liver lesion demonstrated. 3. There is mild splenomegaly present. The spleen measures 13.5 cm in length. 4. 7 mm calcified gallstone in the gallbladder. No gallbladder wall thickening or pericholecystic fluid. 5. Atherosclerosis of the abdominal aorta. The aorta measures up to 2.7 cm in diameter. No acute abnormality. Radiation Dose CTDIVOL = (mGy): DLP = 1374.52 (mGy-cm)
[2020-08-30 17:23] LABS: Add Urine Microscopic? NO
[2020-08-30 17:40] LABS: Bilirubin Urine Neg (Negative); Blood Urine Neg (Negative); Glucose Urine UA Norm (Normal); Ketones Urine Negative (Negative); Leukocyte Esterase Urine Negative (Negative); Nitrate Urine Negative (Negative); Protein Urine Neg (Negative); Urine Appearance Clear (CLEAR); Urine Color Yellow (Yellow); Urobilinogen Urine 1 mg/dL (Negative); pH Urine 5 (5-7)
[2020-08-30] MEDS: sodium chloride 0.45% 1,000 ML 75 ML IV (20:43)
[2020-08-30 21:32] LABS: Glucose Point of Care 172 mg/dL (70-110)
[2020-08-30] MEDS: tamsulosin 0.4 mg Capsule PO (22:40)
[2020-08-30] MEDS: albuterol 8 gm MDI 2 PUFF INHALATION (23:54)
[2020-08-31] VITALS (16 sets, daily range): BP systolic 150–179; BP diastolic 71–90; PULSE 64–95; RESP 16–20; TEMP 36.4–37.2; O2SAT 93–98
[2020-08-31] MEDS: albuterol 8 gm MDI 2 PUFF INHALATION ×5 (04:17→19:38)
[2020-08-31 05:22] LABS: Basophils % 0.1 %; Eosinophils % 0.1 %; Hematocrit 46.3 % (42.0-52.0); Lymphocytes # 1.7 10^3/uL (0.8-4.8); Mean Corpuscular HGB Conc 32.4 g/dL (30.0-36.0); Mean Corpuscular Hemoglobin 30.8 pg (28.0-34.0); Mean Corpuscular Volume 95.1 fL (80-94); Mean Platelet Volume 10.3 fL (7.4-10.4); Monocytes # 0.7 10^3/uL (0.2-0.9); Monocytes % 5.7 %; Neutrophils % 79.7 %; Nucleated Red Blood Cells % 0 %; Platelet Count 45 10^3/cmm (130-400); Red Blood Count 4.87 10^6/uL (4.1-5.3); Red Cell Distribution Width 13.9 % (12.1-15.1)
[2020-08-31 05:45] LABS: Bacteria Urine R /hpf; Bilirubin Urine Neg (Negative); Blood Urine 2+ (Negative); Glucose Urine UA Norm (Normal); Ketones Urine Negative (Negative); Leukocyte Esterase Urine Negative (Negative); Nitrate Urine Negative (Negative); Protein Urine Neg (Negative); RBC Urine RARE /hpf (0-2); Specific Gravity, Urine 1.015 (1.005-1.030); Squamous Epithelial Cell Urine RARE /hpf (0-5); Urine Appearance Clear (CLEAR); Urine Color Yellow (Yellow); Urobilinogen Urine Norm (Negative); WBC Urine RARE /hpf (0-5); pH Urine 5 (5-7)
[2020-08-31 05:46] LABS: Alanine Aminotransferase 86 U/L (0-41); Albumin Level 4.5 g/dL (3.5-5.2); Alkaline Phosphatase 52 IU/L (40-130); Aspartate Amino Transferase 56 U/L (0-40); Blood Urea Nitrogen 35 mg/dL (8-23); Calcium 9.7 mg/dL (8.5-10.5); Carbon Dioxide 22 mmol/L (22-29); Chloride 104 mmol/L (98-107); Estmated Average Glucose 140; Globulin 2.8 g/dL (1.3-4.6); Glomerular Filtration Rate 40.9 mL/min (90-130); Glucose 161 mg/dL (65-115); Hemoglobin A1C 6.5 % (4.0-6.0); Magnesium 1.9 mg/dL (1.7-2.3); Osmolality Calculated 301 mOsm/kg (285-295); Phosphorus 2.5 mg/dL (2.5-4.5); Sodium 140 mmol/L (136-145); Total Bilirubin 0.9 mg/dL (0.15-1.2); Total Protein 7.3 g/dL (6.6-8.7)
[2020-08-31 05:52] LABS: Anion Gap 19.1 (5-19); Potassium 5.1 mmol/L (3.5-5.1)
[2020-08-31 05:57] LABS: Procalcitonin 0.69 ng/mL (0-0.5)
--- NOTE | 2020-08-31 07:00 | USCV_ITS ---
Jeffrey Brown Age: 65 Gender: M : 1955 Exam Date: 08/31/2020 06:44 Ordering Phys: Chris Gonzalez MD Technologist: [place] Exam Location: [facility] [place] Indication: DYSPNEA BP: 160 / 90 HR: 68 Rhythm: Sinus Technical Quality: Very technically difficult study MEASUREMENTS (Male / Female) Normal Values 2D ECHO LV Chamber Size 4.0 cm RV Chamber Size 3.3 cm LVOT Diameter 2.1 cm LV Ejection Fraction MOD 2C 52.3 % LV Ejection Fraction 2C AL 52.6 % LA Diameter 3.5 cm LA Width 3.1 cm LA Height 3.5 cm RA Width 3.1 cm RA Height 3.5 cm Aorta at Sinotubular Diameter 2.9 cm M-MODE Aortic Annulus Diameter 3.4 cm LA Ao Ratio MM 1.3 MV E Point Septal Separation 0.7 cm DOPPLER AV Peak Velocity 134.0 cm/s LVOT Peak Velocity 101.0 cm/s AV Area Cont Eq vti 2.8 cm squared AV Area Cont Eq pk 2.6 cm squared MV Area PHT 4.9 cm squared Mitral E to A Ratio 0.7 MV E' Velocity 53.0 cm/s Mitral E to MV E' Ratio 15.7 Mitral E to LV E' Lateral Ratio 14.3 Mitral E to LV E' Septal Ratio 17.6 TR Peak Velocity 118.0 cm/s TR Peak Gradient 5.6 mmHg TV Peak E Velocity 54.0 cm/s FINDINGS Left Ventricle Normal left ventricular size and systolic function, EF 55 %. Mild left ventricular hypertrophy. No regional wall motion abnormalities. Right Ventricle Possibly of normal size and ejection fraction Right Atrium Possibly of normal size Left Atrium Possibly of normal size Mitral Valve Thickened mitral valve. Moderate mitral annular calcification. Trace mitral valve regurgitation. Aortic Valve Thickened aortic valve. Tricuspid Valve Tricuspid valve not well visualized. Pulmonic Valve Pulmonic valve not well visualized. Pericardium No pericardial effusion. Aorta Normal aortic annulus size. CONCLUSIONS Normal left ventricular size and systolic function, EF 55 %. Mild left ventricular hypertrophy. No regional wall motion abnormalities. Thickened mitral valve. Moderate mitral annular calcification. Trace mitral valve regurgitation. There is no pericardial effusion. No previous study is available for comparison. Dr Sudeep Cotto MD FAC (Electronically Signed) Final Date: 31 August 2020 19:39 S
[2020-08-31] MEDS: pantoprazole DR 40 mg Tablet PO (10:47)
[2020-08-31] MEDS: cefTRIAXone 1,000 MG in sodium chloride 0.9% (plus) 50 ML 100 MG IV (10:48)
[2020-08-31] MEDS: tamsulosin 0.4 mg Capsule PO ×2 (10:48→17:26)
[2020-08-31] MEDS: sodium chloride 0.45% 1,000 ML 75 ML IV (10:49)
[2020-08-31 11:10] LABS: Glucose Point of Care 218 mg/dL (70-110)
--- NOTE | 2020-08-31 13:49 | PM.PN ---
Subjective Subjective: Interval history: Patient reports feeling much better this morning. Denies shortness of breath or chest pain. Saturating 97% on room air. WBC went to 12 which appears to be due to steroids received in ER. Platelets are down to 45. Patient cannot recall his medications he takes. We have requested med list to be faxed from [place] facility. Vitals/I&O/Wt Last Vital Signs Temp 97.9 F 08/31/20 11:15 Pulse 78 08/31/20 12:01 Resp 16 08/31/20 12:01 BP 179/83 08/31/20 11:15 Pulse Ox 97 08/31/20 12:01 08/30/20 08/31/20 08/31/20 22:59 06:59 14:59 Intake Total 1240 / 1240 Output Total 650 / 650 725 / 725 Balance -650 / -650 515 / 515 Weight last 48 hrs Weight 113.398 kg Physical Exam Const: COMMON NORMALS: no acute distress and patient oriented x3 Resp: COMMON NORMALS: normal respiratory effort and clear to auscultation bilaterally AUSCULTATION: clear to auscultation bilaterally Cardio: COMMON NORMALS: regular rate, regular rhythm and S2 normal heart sound present RATE: regular rate RHYTHM: regular rhythm HEART SOUNDS: S2 normal heart sound present OTHER: No lower extremity edema GI: COMMON NORMALS: Normal to inspection, nondistended, normoactive bowel sounds present, Soft to palpation and non-tender PALPATION: Yes Soft to palpation Neuro: COMMON NORMALS: patient oriented x3 and no focal motor deficits Urinary Catheter Management^: Maciel: Cath Placed During This Visit: yes, but has since been removed by the nurse Reason for Continuing Indwelling Catheter: Decision to DC Catheter Urinary Catheter Date of Insertion: 08/31/20 Urinary Catheter Time of Insertion: 01:45 Date Urinary Catheter Removed: 08/31/20 Time Urinary Catheter Discontinued: 11:02 Data : 08/31/20 04:55 08/31/20 04:55 Micro: Microbiology 08/30/20 14:22 Blood Culture - Preliminary Blood SPECIMEN COLLECTED 08/30/20 14:22 Blood Culture - Preliminary Blood SPECIMEN COLLECTED A&P Assessment and plan (1) Dyspnea: Patient's dyspnea appears to be a result of febrile illness but otherwise does not appear to have acute cardiopulmonary problem Status: Acute (2) Subjective fever: Status: Acute (3) Diabetes mellitus type 2 in obese: Status: Acute (4) Obesity (BMI 30.0-34.9): Status: Acute (5) Tobacco abuse: Status: Acute (6) Hepatitis C: Untreated. [place] to be the cause of mild transaminitis and thrombocytopenia. Status: Acute (7) COPD (chronic obstructive pulmonary disease): Status: Acute (8) Acute kidney injury: Versus chronic kidney disease. Status: Acute (9) Thrombocytopenia: Most likely due to hepatitis C and/or suspected UTI Status: Acute (10) Suspected UTI: Status: Acute (11) Benign prostatic hyperplasia: Status: Acute (12) Hypertension: Status: Acute (13) Dehydration: Status: Acute Additional A&P Information PLAN: Continue current monitoring and treatment. Awaiting echocardiogram. Remove Maciel catheter make sure patient can urinate. Reconcile medications. Continue Flomax twice daily for now. Attestations Medical Necessity Statement*: Patient was highly suspected UTI, urinary retention has worsening thrombocytopenia requiring close inpatient monitoring and treatment. 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
--- NOTE | 2020-08-31 17:08 | PC.NURSE ---
Per Dr Preston, patient is negative for covid. Notified Dr Gonzalez. Rcvd order from Dr Gonzalez to remove patient from isolation.
[2020-08-31 17:52] LABS: Glucose Point of Care 135 mg/dL (70-110)
[2020-08-31 21:21] LABS: Glucose Point of Care 186 mg/dL (70-110)
[2020-09-01] VITALS: BP 156/73; PULSE 57; RESP 20; TEMP 36.8; O2SAT 96
[2020-09-01 04:00] VITALS: BP 162/80; PULSE 73; RESP 20; TEMP 36.9; O2SAT 95
[2020-09-01] MEDS: sodium chloride 0.45% 1,000 ML 75 ML IV (04:57)
[2020-09-01 05:11] LABS: Basophils % 0.2 %; Eosinophils # 0.2 10^3/uL (0.0-0.8); Eosinophils % 2.1 %; Hematocrit 43.6 % (42.0-52.0); Hemoglobin 14.2 g/dL (11.7-16.6); Lymphocytes # 1.9 10^3/uL (0.8-4.8); Lymphocytes % 21.7 %; Mean Corpuscular HGB Conc 32.6 g/dL (30.0-36.0); Mean Corpuscular Hemoglobin 31.1 pg (28.0-34.0); Mean Corpuscular Volume 95.6 fL (80-94); Mean Platelet Volume 10.9 fL (7.4-10.4); Monocytes # 0.6 10^3/uL (0.2-0.9); Monocytes % 7.2 %; Neutrophils # 6.09 10^3/uL (1.8-7.7); Neutrophils % 68.6 %; Nucleated Red Blood Cells % 0 %; Platelet Count 53 10^3/cmm (130-400); Red Blood Count 4.56 10^6/uL (4.1-5.3); White Blood Count 8.9 10^3/uL (4.0-10.0)
[2020-09-01 05:29] LABS: Alanine Aminotransferase 63 U/L (0-41); Alkaline Phosphatase 46 IU/L (40-130); Anion Gap 16.7 (5-19); Aspartate Amino Transferase 43 U/L (0-40); Blood Urea Nitrogen 42 mg/dL (8-23); Calcium 10.1 mg/dL (8.5-10.5); Carbon Dioxide 23 mmol/L (22-29); Chloride 106 mmol/L (98-107); Globulin 3.1 g/dL (1.3-4.6); Glomerular Filtration Rate 33.9 mL/min (90-130); Glucose 128 mg/dL (65-115); Magnesium 2.1 mg/dL (1.7-2.3); Osmolality Calculated 304 mOsm/kg (285-295); Phosphorus 4.1 mg/dL (2.5-4.5); Potassium 4.7 mmol/L (3.5-5.1); Sodium 141 mmol/L (136-145); Total Bilirubin 0.5 mg/dL (0.15-1.2); Total Protein 7.1 g/dL (6.6-8.7)
[2020-09-01 06:40] LABS: Glucose Point of Care 132 mg/dL (70-110)
[2020-09-01 07:54] VITALS: BP 163/94; PULSE 63; RESP 18; TEMP 36.7; O2SAT 97
[2020-09-01] MEDS: cefTRIAXone 1,000 MG in sodium chloride 0.9% (plus) 50 ML 100 MG IV (08:47)
[2020-09-01] MEDS: tamsulosin 0.4 mg Capsule PO (08:47)
[2020-09-01] MEDS: pantoprazole DR 40 mg Tablet PO (08:47)
--- NOTE | 2020-09-01 09:02 | PC.RESP ---
SMOKING CESSATION INFORMATION SENT TO PATIENT.
--- NOTE | 2020-09-01 09:16 | PM.DCS ---
Discharge Providers Date of Admission: 08/30/20 16:42 Date of Discharge: September 01, 2020 Attending Provider at Admission: Chris Gonzalez MD Attending Provider at Discharge: Chris Gonzalez MD Primary Care Provider: Fer Musa DO Diagnoses at Discharge Discharge Diagnosis (1) Dyspnea: (2) Subjective fever: (3) Diabetes mellitus type 2 in obese: (4) Obesity (BMI 30.0-34.9): (5) Tobacco abuse: (6) Hepatitis C: (7) COPD (chronic obstructive pulmonary disease): (8) Acute kidney injury: (9) Thrombocytopenia: (10) Suspected UTI: (11) Benign prostatic hyperplasia: (12) Hypertension: (13) Dehydration: (14) Liver cirrhosis: Reason for Visit Reason for Visit: sob/ shivered/ fever Hospital Course Discharge Summary: Patient presented with fever and shortness of breath secondary to acute COPD exacerbation. He did not appear to have any obvious infection. He was treated with ceftriaxone and gradually improved and this morning reports feeling back to his baseline and wants to go home. This morning he denies any shortness of breath or chest pain. Reports that his cough significantly improved and I had extensive discussion with patient regarding importance of smoking cessation. Patient voiced understanding and reports that he is not going to smoke again. He does not want any pharmacological help. He appears to have chronic kidney disease and outpatient follow-up with nephrology service was recommended. Patient also has chronic hepatitis C and resultant cirrhosis with preserved synthetic function and also appears to have splenomegaly. Patient reports that he is currently awaiting arrangements to see his pathologist from [place] facility. Unfortunately we could not obtain patient's medication list yesterday and this morning. Patient will be dismissed on medications listed below and I have requested patient to see his primary care physician as soon as possible. I will perform home O2 eval prior to discharge. Patient will be discharged on Flomax twice daily. He is urinating currently without any difficulty. P.S. sputum culture came back with stenotrophomonas which should be well covered with cefdinir. Physical Exam Const: COMMON NORMALS: no acute distress and patient oriented x3 Resp: COMMON NORMALS: normal respiratory effort and clear to auscultation bilaterally AUSCULTATION: clear to auscultation bilaterally Cardio: COMMON NORMALS: regular rate, regular rhythm and S2 normal heart sound present RATE: regular rate RHYTHM: regular rhythm HEART SOUNDS: S2 normal heart sound present OTHER: No lower extremity edema GI: COMMON NORMALS: Normal to inspection, nondistended, normoactive bowel sounds present, Soft to palpation and non-tender PALPATION: Yes Soft to palpation Neuro: COMMON NORMALS: patient oriented x3 and no focal motor deficits Urinary Catheter Management^: Maciel: Cath Placed During This Visit: yes, but has since been removed by the nurse Reason for Continuing Indwelling Catheter: Decision to DC Catheter Urinary Catheter Date of Insertion: 08/31/20 Urinary Catheter Time of Insertion: 01:45 Date Urinary Catheter Removed: 08/31/20 Time Urinary Catheter Discontinued: 11:02 Discharge Data Data Completed and Pending: Completed Studies During Hospitalization Category Date Time Status CT abdomen pelvis wo con [id number] Urge nt Cat Scan 08/30/20 17:04 Completed XR chest 1V benny ble [id number] Stat Exams 08/30/20 14:09 Completed CV echo complete* [id number] Routine Ultrasound 08/31/20 07:00 Completed Pending at discharge Category Date Time Status Blood Culture Sta t Lab 08/30/20 14:22 Results Complete Blood Co unt w/Auto AM LABS Lab 09/02/20 04:00 Ordered Comprehensive Met abolic Panel AM LA BS Lab 09/02/20 04:00 Ordered Coronavirus Lab T est PTC Routine Lab 08/30/20 15:40 Received Magnesium AM LABS Lab 09/02/20 04:00 Ordered Phosphorus AM LAB S Lab 09/02/20 04:00 Ordered Sputum Culture an d Gram Stain Routi ne Lab 08/31/20 17:34 Received Labs from last 24 hours 09/01/20 09/01/20 09/01/20 06:29 04:47 04:47 WBC 8.9 RBC 4.56 Hgb 14.2 Hct 43.6 MCV 95.6 H MCH 31.1 MCHC 32.6 RDW 14.0 Plt Count 53 L MPV 10.9 H Neut % (Auto) 68.6 Lymph % (Auto) 21.7 [place] % (Auto) 7.2 Eos % (Auto) 2.1 Baso % (Auto) 0.2 Neut # (Auto) 6.09 Lymph # (Auto) 1.9 [place] # (Auto) 0.6 Eos # (Auto) 0.2 Baso # (Auto) 0.0 Nucleated RBC % (a uto) 0 Nucleated RBCs # 0.0 Sodium 141 Potassium 4.7 Chloride 106 Carbon Dioxide 23 Anion Gap 16.7 BUN 42 H Creatinine 2.0 H GFR Calculation 33.9 L Glucose 128 H POC Glucose 132 Calculated Osmolal ity 304 H Calcium 10.1 Phosphorus 4.1 D Magnesium 2.1 Total Bilirubin 0.5 AST 43 H ALT 63 H Alkaline Phosphata se 46 Total Protein 7.1 Albumin 4.0 Globulin 3.1 08/31/20 08/31/20 08/31/20 21:03 16:54 10:46 WBC RBC Hgb Hct MCV MCH MCHC RDW Plt Count MPV Neut % (Auto) Lymph % (Auto) [place] % (Auto) Eos % (Auto) Baso % (Auto) Neut # (Auto) Lymph # (Auto) [place] # (Auto) Eos # (Auto) Baso # (Auto) Nucleated RBC % (a uto) Nucleated RBCs # Sodium Potassium Chloride Carbon Dioxide Anion Gap BUN Creatinine GFR Calculation Glucose POC Glucose 186 135 218 Calculated Osmolal ity Calcium Phosphorus Magnesium Total Bilirubin AST ALT Alkaline Phosphata se Total Protein Albumin Globulin Vitals: Last Vital Signs Temp 98.0 F 09/01/20 07:54 Pulse 63 09/01/20 07:54 Resp 18 09/01/20 07:54 BP 163/94 09/01/20 07:54 Pulse Ox 97 09/01/20 07:54 Discharge Plan Discharge Patient Disposition: Home Condition: Stable Prescriptions: New acetaminophen 325 mg Tablet 650 mg PO Q6H PRN (Reason: Mild/Mod Pain Or Temp >/= 101) Qty: 20 RF: 0 ipratropium-albuterol 0.5 mg-3 mg(2.5 mg base)/3 mL Solution For Nebulization 3 ml inhalation Q6H PRN (Reason: Shortness Of Breath) Qty: 60 RF: 0 Ventolin HFA 90 mcg/actuation Hfa Aerosol Inhaler 2 puff inhalation Q4H.RESPIRATORY Qty: 1 RF: 0 tamsulosin 0.4 mg Capsule 0.4 mg PO BID Qty: 60 RF: 0 cefdinir 300 mg capsule 300 mg PO DAILY 5 Days Qty: 5 RF: 0 Continued aspirin 81 mg Tablet,Chewable 81 mg PO DAILY RF: 0 gabapentin 300 mg Capsule 300 mg PO TID RF: 0 No Action lidocaine HCl 2 % jelly 1 applic INTRA-URET ONCE Qty: 1 RF: 0 nitrofurantoin monohyd/m-cryst [Macrobid] 100 mg capsule 100 mg PO Q12H 7 Days Qty: 14 RF: 0 atorvastatin 80 mg Tablet 80 mg PO DAILY RF: 0 acetaminophen 325 mg Tablet 325 mg PO QID PRN (Reason: Pain) RF: 0 albuterol sulfate 90 mcg/actuation Hfa Aerosol Inhaler 2 puff INHALATION QID PRN (Reason: Shortness Of Breath) RF: 0 ferrous sulfate 325 mg (65 mg iron) Tablet 325 mg PO DAILY RF: 0 gabapentin 300 mg Capsule 300 mg PO TID RF: 0 omeprazole 20 mg Capsule,Delayed Release(Dr/Ec) 40 mg PO DAILY RF: 0 furosemide 20 mg Tablet 20 mg PO DAILY RF: 0 Multi-Vitamin HP/Minerals Capsule 1 cap PO DAILY RF: 0 cholecalciferol (vitamin D3) 2,000 unit Tablet 2,000 unit PO DAILY RF: 0 lidocaine 5 % Ointment See Rx Instructions .ROUTE .COMPLEX RF: 0 Combivent Respimat 20-100 mcg/actuation Mist 1 puff INHALATION QID RF: 0 loratadine 10 mg tablet 10 mg PO DAILY PRN (Reason: ALLERGIES) RF: 0 losartan 100 mg tablet 50 mg PO DAILY RF: 0 pentoxifylline 400 mg tablet extended release 400 mg PO TID RF: 0 senna 8.6 mg Capsule 8.6 mg PO DAILY PRN (Reason: Constipation) RF: 0 metoprolol tartrate 50 mg tablet 50 mg PO BID RF: 0 Keppra 500 mg tablet 500 mg PO BID Qty: 60 RF: 0 carisoprodol 350 mg Tablet 350 mg PO Q8H PRN (Reason: Pain) Qty: 42 RF: 0 acetaminophen 325 mg Tablet 650 mg PO Q6H PRN (Reason: Mild/Mod Pain Or Temp >/= 101) Qty: 60 RF: 0 Lantus Solostar U-100 Insulin 100 unit/mL (3 mL) insulin pen 10 unit SUBCUT DAILY Qty: 15 RF: 0 Humalog KwikPen Insulin 100 unit/mL insulin pen See Rx Instructions .ROUTE .COMPLEX Qty: 15 RF: 0 (DME) Blood Glucose Monitoring Kit See Rx Instructions .ROUTE .MEDSUPPLY Qty: 1 RF: 0 Discharge Orders: Discharge Order (Routine); Ordered 09/01/20 Ordered By: Chris Gonzalez Referrals: Castillo Jean MD [Physician] - 09/09/20 10:45 am (Follow up with Dr Jean on September 09 at 10:45 am) Fer Musa DO [Primary Care Provider] - 09/03/20 11:00 am (Please follow up with Dr Musa via telephone visit on SundaySeptember 03 at 11:00 am. The Facility will contact you and give you directions and information on how to do the visit.) Discharge Diet: Advance as tolerated Discharge Activity: Resume usual activity Patient Instructions: Albuterol (By breathing), Tamsulosin (By mouth), Cefdinir (By mouth), Cirrhosis (DC), Benign Prostatic Hypertrophy (DC) Activity Restrictions/Additional Instructions: Please call your doctor or present to emergency department if your condition worsens or you develop diarrhea, lightheadedness, fatigue or see blood in your stool or black stool. Please keep blood pressure and heart rate log 3 times daily to present to primary care physician next visit for medication adjustment. Should your blood pressure be less than 110/70 please do not take Flomax as it may drop your blood pressure. Please note that because we cannot obtain your medication list it is important for you to follow-up with your primary care physician as soon as possible. Please follow-up with pulmonary and nephrology physicians as soon as possible. 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
[2020-09-01 10:08] VITALS: O2SAT 96; O2SAT 97
--- NOTE | 2020-09-01 10:22 | PC.NURSE ---
Patient given discharge instructions. patient verbalized understanding of instructions. patient waiting on ride to arrive.
--- NOTE | 2020-09-01 10:38 | PC.NURSE ---
Home O2 eval done by Jenni RT. Per Jenni no oxygen needed.
[2020-09-01 11:31] LABS: Coronavirus Lab Test PTC Negative
--- NOTE | 2020-09-01 11:32 | PC.NURSE ---
patient taken to private vehicle via wheelchair by staff.
[2020-09-01 11:33] VITALS: BP 163/94; PULSE 63; RESP 18; TEMP 36.7; O2SAT 97
== END 2020-09-01 11:33 | disposition home or self-care (01) | DRG 683 ==
LOC: ER 15:22 → MEDSURG 17:37
PROVIDERS: Emergency Medicine; Admitting Provider Internal Medicine; PCP Emergency Medicine Emergency Medical Services; Visit Provider Internal Medicine
DX: N17.9 Acute kidney failure, unspecified (principal); J44.1 Chronic obstructive pulmonary disease with (acute) exacerbation; N39.0 Urinary tract infection, site not specified; K74.60 Unspecified cirrhosis of liver; E86.0 Dehydration; I10 Essential (primary) hypertension; E66.9 Obesity, unspecified; Z68.35 Body mass index [BMI] 35.0-35.9, adult; D69.6 Thrombocytopenia, unspecified; F17.210 Nicotine dependence, cigarettes, uncomplicated; B19.20 Unspecified viral hepatitis C without hepatic coma; Z79.82 Long term (current) use of aspirin; N40.1 Benign prostatic hyperplasia with lower urinary tract symptoms; R33.8 Other retention of urine; Z89.612 Acquired absence of left leg above knee; E11.51 Type 2 diabetes mellitus with diabetic peripheral angiopathy without gangrene
CPT/HCPCS: 12345; 36416; 51702; 71045; 74176; 80053; 81001; 81003; 82728; 82962; 83036; 83605; 83615; 83735; 83880; 84100; 84145; 85025; 85378; 85384; 85610; 86140; 87040; 87070; 87077; 87186; 87205; 87426; 87635; 87804; 93306; 94640; 96372; 96375; 99284; J0696; J1100; J1815; J3490; J3535

== ENCOUNTER → 2020-10-01 08:14 | Outpatient (BNVA) | payer OTHER, SELFPAY | PROVIDERS: PCP Emergency Medicine Emergency Medical Services; Visit Provider Anesthesiology Pain Medicine | DX: M48.062 Spinal stenosis, lumbar region with neurogenic claudication (principal); M47.816 Spondylosis without myelopathy or radiculopathy, lumbar region; M51.36 Other intervertebral disc degeneration, lumbar region; M51.16 Intervertebral disc disorders with radiculopathy, lumbar region; M54.9 Dorsalgia, unspecified; Z79.891 Long term (current) use of opiate analgesic | CPT/HCPCS: 99205 ==

== ENCOUNTER → 2020-10-11 14:16 | Outpatient (BNVA) | payer OTHER, SELFPAY | PROVIDERS: PCP Emergency Medicine Emergency Medical Services; Visit Provider Anesthesiology Pain Medicine | DX: M47.816 Spondylosis without myelopathy or radiculopathy, lumbar region (principal); M54.9 Dorsalgia, unspecified; F17.210 Nicotine dependence, cigarettes, uncomplicated | CPT/HCPCS: 64493; 64494; 64495; J1030; J3490 ==

== ENCOUNTER 2020-10-12 06:00 | Outpatient (RCR) | payer OTHER, SELFPAY | END 2020-11-11 23:59 | disposition home or self-care (01) | LOC: TPT 06:00 | PROVIDERS: PCP Emergency Medicine Emergency Medical Services; Referring Provider Emergency Medicine Emergency Medical Services; Visit Provider Emergency Medicine Emergency Medical Services | DX: M62.81 Muscle weakness (generalized) (principal) | CPT/HCPCS: 97110 ==

== ENCOUNTER → 2020-10-25 13:13 | Outpatient (BNVA) | payer OTHER, SELFPAY | PROVIDERS: PCP Emergency Medicine Emergency Medical Services; Visit Provider Anesthesiology Pain Medicine | DX: M47.816 Spondylosis without myelopathy or radiculopathy, lumbar region (principal); M51.36 Other intervertebral disc degeneration, lumbar region; M51.16 Intervertebral disc disorders with radiculopathy, lumbar region; M54.9 Dorsalgia, unspecified; R10.30 Lower abdominal pain, unspecified; F17.210 Nicotine dependence, cigarettes, uncomplicated | CPT/HCPCS: 99213 ==

== ENCOUNTER → 2020-11-10 10:08 | Outpatient (BNVA) | payer OTHER, SELFPAY | PROVIDERS: PCP Emergency Medicine Emergency Medical Services; Visit Provider Internal Medicine | DX: B18.2 Chronic viral hepatitis C (principal); Z72.0 Tobacco use | CPT/HCPCS: 36415; 82105; 87522; 87902 ==

== ENCOUNTER 2020-11-12 06:00 | Outpatient (RCR) | payer OTHER, SELFPAY | END 2020-12-12 23:59 | disposition home or self-care (01) | LOC: TPT 06:00 | PROVIDERS: PCP Emergency Medicine Emergency Medical Services; Referring Provider Emergency Medicine Emergency Medical Services; Visit Provider Emergency Medicine Emergency Medical Services | DX: M62.81 Muscle weakness (generalized) (principal) | CPT/HCPCS: 97110; 97116 ==

== ENCOUNTER → 2020-11-19 10:24 | Outpatient (BNVA) | payer OTHER, SELFPAY | PROVIDERS: PCP Emergency Medicine Emergency Medical Services; Visit Provider Anesthesiology Pain Medicine | DX: M54.9 Dorsalgia, unspecified (principal); M47.816 Spondylosis without myelopathy or radiculopathy, lumbar region; M51.36 Other intervertebral disc degeneration, lumbar region; M51.16 Intervertebral disc disorders with radiculopathy, lumbar region; F17.210 Nicotine dependence, cigarettes, uncomplicated | CPT/HCPCS: 99214 ==

== ENCOUNTER → 2021-01-06 15:30 | Outpatient (BNVA) | payer OTHER, SELFPAY | PROVIDERS: PCP Emergency Medicine Emergency Medical Services; Visit Provider Internal Medicine Pulmonary Disease | DX: Z20.822 Contact with and (suspected) exposure to COVID-19 (principal) | CPT/HCPCS: 87635 ==

== ENCOUNTER 2021-01-12 13:44 | Outpatient (CLI) | payer OTHER, SELFPAY ==
--- NOTE | 2021-01-12 14:22 | PFTS_ITS ---
Date of Study:01/12/21 Date of Dictation: 01/14/2021 MECHANICS: Forced vital capacity (FVC) is normal. Forced expiratory volume in one second (FEV1) is moderately reduced 64%. FEV1/FVC is reduced. There is significant response to bronchodilators.. FLOW VOLUME LOOP: Scooping of the expiratory limb suggestive of obstructive airways. LUNG VOLUMES: Total lung capacity (TLC) is normal. Residual volume (RV) is mildly increased suggesting air trapping. DIFFUSING CAPACITY FOR CARBON MONOXIDE: Mildly reduced 74% . INTERPRETATION: The pulmonary function tests are consistent with moderate obstructive ventilatory defect. There is significant response to bronchodilators. Lung volumes suggestive of mild air trapping. Mild reduction in gas transfer. Please correlate clinically. MTDD
== END 2021-01-12 13:45 | disposition home or self-care (01) ==
PROVIDERS: PCP Emergency Medicine Emergency Medical Services; Visit Provider Internal Medicine Pulmonary Disease
DX: J44.9 Chronic obstructive pulmonary disease, unspecified (principal)
CPT/HCPCS: 94060; 94726; 94729; J7611

== ENCOUNTER 2021-01-30 19:52 | Observation (INO) | payer OTHER, MEDICARE, SELFPAY ==
[2021-01-30 19:55] VITALS: BP 189/93; PULSE 73; RESP 18; TEMP 36.2; O2SAT 96; BMI 33.5
--- NOTE | 2021-01-30 20:07 | CTR_ITS ---
PROCEDURE INFORMATION: Exam: CT Angiography Head With Contrast Exam date and time: 01/30/2021 10:04 PM Age: 65 years old Clinical indication: Speech disturbance; Patient HX: Confusion and aphasia since 3-19; Additional info: AMS TECHNIQUE: Imaging protocol: Computed tomography angiography of the head with intravenous contrast. 3D rendering (Not supervised by radiologist): MIP and/or 3D reconstructed images were created by the technologist. Radiation optimization: All CT scans at this facility use at least one of these dose optimization techniques: automated exposure control; mA and/or kV adjustment per patient size (includes targeted exams where dose is matched to clinical indication); or iterative reconstruction. Contrast material: VISI 320; Contrast volume: 95 ml; Contrast route: INTRAVENOUS (IV); COMPARISON: CT head wo con* [id number] 01/30/2021 10:32 PM RADIATION DOSE METRICS: Total DLP (mGy-cm): 2406.35 FINDINGS: ANTERIOR CIRCULATION: Right internal carotid artery: Calcifications are seen within the intracranial internal carotid artery. Intracranial segment is patent. There is a 40% stenosis the proximal supraclinoid segment. No aneurysm. Right middle cerebral artery: Unremarkable. No occlusion or significant stenosis. No aneurysm. Right anterior cerebral artery: Unremarkable. No occlusion or significant stenosis. No aneurysm. Left internal carotid artery: Calcifications are seen within the intracranial internal carotid artery.. Intracranial segment is patent with no significant stenosis. No aneurysm. Left middle cerebral artery: Unremarkable. No occlusion or significant stenosis. No aneurysm. Left anterior cerebral artery: Unremarkable. No occlusion or significant stenosis. No aneurysm. POSTERIOR CIRCULATION: Right vertebral artery: Unremarkable. No occlusion or significant stenosis. No aneurysm. Left vertebral artery: Unremarkable. No occlusion or significant stenosis. No aneurysm. Basilar artery: Unremarkable. No occlusion or significant stenosis. No aneurysm. Right posterior cerebral artery: Unremarkable. No occlusion or significant stenosis. No aneurysm. Left posterior cerebral artery: Unremarkable. No occlusion or significant stenosis. No aneurysm. Brain: No definite mass, mass effect, or midline shift. Cerebral ventricles: No ventriculomegaly. Bones/joints: Unremarkable. No acute fracture. Soft tissues: Unremarkable. IMPRESSION: Calcific plaques are seen within the intracranial internal carotid artery bilaterally. Calcific plaques at the origin of the supraclinoid segment of the right internal carotid artery causes approximately 40% stenosis. PROCEDURE INFORMATION: Exam: CT Angiography Neck With Contrast Exam date and time: 01/30/2021 10:04 PM Age: 65 years old Clinical indication: Speech disturbance; Patient HX: Confusion and aphasia since 3-19; Additional info: AMS TECHNIQUE: Imaging protocol: Computed tomography angiography of the neck with intravenous contrast. 3D rendering (Not supervised by radiologist): MIP and/or 3D reconstructed images were created by the technologist. Radiation optimization: All CT scans at this facility use at least one of these dose optimization techniques: automated exposure control; mA and/or kV adjustment per patient size (includes targeted exams where dose is matched to clinical indication); or iterative reconstruction. Contrast material: VISI 320; Contrast volume: 95 ml; Contrast route: INTRAVENOUS (IV); COMPARISON: CT head wo [facility]* [id number] 01/30/2021 10:32 PM RADIATION DOSE METRICS: Total DLP (mGy-cm): 2406.35 FINDINGS: Right common carotid artery: No stenosis. No dissection or occlusion. Right internal carotid artery: No stenosis of the extracranial segment. No dissection or occlusion. Right external carotid artery: No occlusion or stenosis of the origin. Right vertebral artery: No stenosis. No dissection or occlusion. Left common carotid artery: No stenosis. No dissection or occlusion. Left internal carotid artery: No stenosis of the extracranial segment. No dissection or occlusion. Left external carotid artery: No occlusion or stenosis of the origin. Left vertebral artery: No stenosis. No dissection or occlusion. Bones/joints: No acute fracture. Soft tissues: Normal. No significant soft tissue swelling. CT/CT angio headneck* [id number] IMPRESSION: No stenosis or occlusion. REFERENCES: NASCET CRITERIA. The degree of internal carotid artery stenosis is based on NASCET criteria. Normal is no stenosis. Mild is less than 50% stenosis. Moderate is 50-69% stenosis. Severe is 70% to 99% stenosis. Total occlusion is no detectable patent lumen. Radiation Dose CTDIVOL = (mGy): DLP = 2406.35~2406.35 (mGy-cm)
--- NOTE | 2021-01-30 20:07 | XR_ITS ---
WS: [id number] Exam: XR chest 1V portable [id number] Date/Time of Exam: 01/30/2021 8:13 PM Reason For Exam: no acute abnormality Comparison 08/30/2020. Comparison 08/30/2020. The lungs are fully expanded. No acute infiltrate or pleural effusion. Chronic plaque atelectasis the right lower lung zone. Unremarkable cardiomediastinal structures and regional bony elements. Moderat jeff advanced DJD of both shoulders. XR/XR chest 1V portable [id number] IMPRESSION: 1. No acute cardiopulmonary finding.
--- NOTE | 2021-01-30 20:07 | CTR_ITS ---
PROCEDURE INFORMATION: Exam: CT Head Without Contrast Exam date and time: 01/30/2021 10:04 PM Age: 65 years old Clinical indication: Altered mental status/memory loss and speech disturbance; Confusion or disorientation; Patient HX: Confusion and aphasia since 3-19; Additional info: AMS TECHNIQUE: Imaging protocol: Computed tomography of the head without contrast. Radiation optimization: All CT scans at this facility use at least one of these dose optimization techniques: automated exposure control; mA and/or kV adjustment per patient size (includes targeted exams where dose is matched to clinical indication); or iterative reconstruction. COMPARISON: CT head wo con* [id number] 12/28/2019 11:51 AM RADIATION DOSE METRICS: Total DLP (mGy-cm): 948.83 FINDINGS: Brain: There is mild diffuse cerebral atrophy. Patchy areas of hypoattenuation are seen in the deep white matter of the cerebral hemispheres bilaterally compatible with deep white matter microvascular disease. Cerebral ventricles: No ventriculomegaly. Bones/joints: Unremarkable. No acute fracture. Paranasal sinuses: Mild mucosal thickening and fluid is seen within the ethmoidal sinuses bilaterally. Some fluid is seen within the right frontal sinus. Mastoid air cells: Visualized mastoid air cells are well aerated. Soft tissues: Unremarkable. CT/CT head wo con* [id number] IMPRESSION: There are no acute intracranial findings. Radiation Dose CTDIVOL = (mGy): DLP = 948.83 (mGy-cm)
--- NOTE | 2021-01-30 20:08 | ECG_ITS ---
[facility] Test Date: 2021-01-30 Pat Name: Jeffrey Brown Department: Room: Gender: Male Client Technical Specialist: : 1955 Requested By: Leigh Ann Arboleda Order Number: [id number] Janet MD: Carly Muro M.D. Measurements Intervals [place] Rate: 61 P: 68 NV: 169 QRS: -41 QRSD: 86 T: 6 QT: 359 QTc: 364 Interpretive Statements SINUS RHYTHM WITH OCCASIONAL VENTRICULAR PREMATURE COMPLEXES LEFT AXIS DEVIATION [QRS AXIS < -30] Compared to ECG 09/22/2018 10:41:05 Ventricular premature complex(es) now present Left-axis deviation now present Myocardial infarct finding no longer present Electronically Signed On 01-31-2021 12:59:53 CDT by Carly Muro M.D. [email or web address]
--- NOTE | 2021-01-30 20:21 | W.ED.NEUROSD ---
HPI - Neuro Symptoms/Deficit General: Chief Complaint: Abdominal Pain Stated Complaint: ams/sob Time Seen by Provider: 01/30/21 20:02 Source: patient Mode of arrival: ambulatory Limitations: no limitations History of Present Illness: HPI Narrative: 65-year-old male states that since Sunday he has been having confusion along with difficulty speaking. states that he has had very slurred speech and word finding difficulty. Patient states that he has had no worsening or improving factors. He is difficult to understand here with dysarthria. He denies any weakness. He states he had a mild headache as well. Denies any vomiting or diarrhea. Associated symptoms: Deny chest pain, headache(s), nausea or vomiting Review of Systems Const: Denies: fever(s), chills, body aches or change in appetite Eyes: Denies: blurry vision or eye discomfort ENMT: Denies: throat pain or dental pain Card: Denies: chest pain Resp: Denies: dyspnea GI: Denies: abdominal pain, nausea, vomiting or diarrhea : Denies: dysuria Musc: Denies: neck pain or back pain Skin/Breast: Denies: rash Neuro: Reports: confusion, Slurred speech present and difficulty communicating thoughts; Denies: headache(s) Psych: Denies: depression Jesús/Lymph: Denies: easy bruising All/Imm: Denies: urticaria PFS ED PFSH: Medical History (Updated 01/30/21 @ 23:19 by Leigh Ann Arboleda MD) Above-knee amputation of left lower extremity CAD (coronary artery disease) Cervical disc disorder with myelopathy of mid-cervical region COPD (chronic obstructive pulmonary disease) Degenerative joint disease of left shoulder Diabetes mellitus New diagnosis Diabetes mellitus type 2 in obese Frequent UTI Hepatitis C with some early cirrhosis. HCC ruled out. History of DVT (deep vein thrombosis) December 2018 Liver cirrhosis With preserved synthetic function. Muscle spasm of right shoulder Myoclonus dystonia Obesity (BMI 30.0-34.9) Peripheral vascular disease PVD (peripheral vascular disease) Tobacco abuse Surgical History H/O hernia repair History of femoropopliteal bypass S/P AKA (above knee amputation) unilateral Family History Father Diabetes Brother Diabetes Grandmother Diabetes Mother COPD (chronic obstructive pulmonary disease) Father No problems noted. Social History (Updated 01/20/21 @ 14:25 by Bere Humphreys LPN) Smoking and tobacco status: current every day smoker cigarettes Years cigarettes smoked: 52 [ Other cigarette details: Hx of 1ppd x 52 years ] Quit status (tobacco): considering quitting Second hand smoke exposure: No Smoking risk assessment/counseling performed?: Yes Alcohol intake: current Alcohol intake frequency: holidays/special occasions only Alcohol type: beer Desire information about alcohol rehabilitation?: No Counseling given: No Counseling given: No Caregiver/support person: Yes Lives independently: Yes Household members: significant other Marital status: Single service: Yes Current occupational status: retired 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 Pets and animals: No History of recent travel: No Current gender identity: Male NIH stroke score NIHSS: Level Of Consciousness - 1a: 0 Level Of Consciousness Questions - 1b: Both Correct Level Of Consciousness Commands - 1c: Both Correct Best Gaze - 2: Normal Visual [place] - 3: No Visual Loss Facial Palsy - 4: Normal Motor Arm Right - 5: No Drift Motor Arm Left - 5: No Drift Motor Leg Right - 6: No Drift Motor Leg Left - 6: No Drift Limb Ataxia - 7: Absent Sensory - 8: Normal Best Language - 9: Mild/Moderate Aphasia Dysarthia - 10: Mild/Moderate Dysarthia Extinction And Inattention - 11: 0 Score: Total Score: 2 Physical Exam Const: COMMON NORMALS: no acute distress, patient oriented x3 and healthy appearing HENMT: COMMON NORMALS: normocephalic and atraumatic HEAD & SCALP: normocephalic and atraumatic Eye: COMMON NORMALS: Equal, round and reactive pupils present and EOMs intact bilaterally PUPIL: Yes Equal, round and reactive pupils present Neck/C-Spine: COMMON NORMALS: full ROM and supple Chest: COMMONS NORMALS: normal inspection of the chest and normal palpation of entire chest wall Resp: COMMON NORMALS: normal respiratory effort, No retractions, No use of accessory muscles and clear to auscultation bilaterally AUSCULTATION: clear to auscultation bilaterally Cardio: COMMON NORMALS: regular rate, regular rhythm and No murmurs present (Cardio) RATE: regular rate RHYTHM: regular rhythm GI: COMMON NORMALS: Normal to inspection, nondistended, normoactive bowel sounds present, Soft to palpation, non-tender and no masses PALPATION: Yes Soft to palpation Extremity: COMMON NORMALS: normal to inspection and full ROM Neuro: COMMON NORMALS: patient oriented x3, moves all extremities and no focal motor deficits SPEECH: abnormal speech and expressive aphasia GAIT: Yes Normal gait present MOTOR EXAM: 5/5 motor strength present throughout Psych: COMMON NORMALS: mental status grossly normal, Normal thought process present and cooperative THOUGHT PROCESS: Normal thought process present Skin: COMMON NORMALS: no rashes or lesions noted and no wounds GENERAL SKIN EXAM: no rashes or lesions noted Course Vital Signs: Vital signs: Vital Signs Temperature 97.1 F L 01/30/21 19:55 Pulse Rate 67 01/30/21 22:55 Respiratory Rate 19 H 01/30/21 22:55 Blood Pressure 180/73 01/30/21 22:55 Pulse Oximetry 95 01/30/21 22:55 MDM - Neuro Symptoms/Deficit MDM Narrative: Medical decision making narrative: Jeffrey presents here with slurred speech and likely had a stroke. Does have a slight headache tonight could be a migraine variant. His head CT and CTA here are normal. Is no signs of subarachnoid hemorrhage. Spoke to hospitalist will admit for observation for further work-up. Lab Data: Labs: Lab Results 01/30/21 01/30/21 01/30/21 Range/Units 20:22 20:22 20:22 WBC 6.5 (4.0-10.0) 10^3/ uL RBC 4.76 (4.1-5.3) 10^6/u L Hgb 14.8 (11.7-16.6) g/dL Hct 45.0 (42.0-52.0) % MCV 94.5 H (80-94) fL MCH 31.1 (28.0-34.0) pg MCHC 32.9 (30.0-36.0) g/dL RDW 13.0 (12.1-15.1) % Plt Count 68 L (130-400) 10^3/c mm MPV 10.1 (7.4-10.4) fL Neut % (Auto) 56.0 % Lymph % (Auto) 31.0 % [place] % (Auto) 8.3 % Eos % (Auto) 3.7 % Baso % (Auto) 0.5 % Neut # (Auto) 3.66 (1.8-7.7) 10^3/u L Lymph # (Auto) 2.0 (0.8-4.8) 10^3/u L [place] # (Auto) 0.5 (0.2-0.9) 10^3/u L Eos # (Auto) 0.2 (0.0-0.8) 10^3/u L Baso # (Auto) 0.0 (0.0-0.1) 10^3/u L Nucleated RBC % (a uto) 0 % Nucleated RBCs # 0.0 /100WBC PT 13.50 (12.1-14.9) SECO NDS INR 1.00 (0.8-1.2) Sodium 139 (136-145) mmol/L Potassium 5.1 (3.5-5.1) mmol/L Chloride 103 (98-107) mmol/L Carbon Dioxide 26 (22-29) mmol/L Anion Gap 15.1 (5-19) BUN 30 H (8-23) mg/dL Creatinine 1.7 H (0.7-1.2) mg/dL GFR Calculation 40.9 L (90-130) mL/min Glucose 85 (65-115) mg/dL Calculated Osmolal ity 293 (285-295) mOsm/k g Calcium 9.6 (8.5-10.5) mg/dL Magnesium 2.0 (1.7-2.3) mg/dL Total Bilirubin 0.3 (0.15-1.2) mg/dL AST 19 (0-40) U/L ALT 19 (0-41) U/L Alkaline Phosphata se 40 (40-130) IU/L Ammonia (16-60) umol/L Total Protein 7.0 (6.6-8.7) g/dL Albumin 3.9 (3.5-5.2) g/dL Globulin 3.1 (1.3-4.6) g/dL Urine Color (Yellow) Urine Appearance (CLEAR) Urine pH (5-7) Ur Specific Gravit y (1.005-1.030) Urine Protein (Negative) Urine Glucose (UA) (Normal) Urine Ketones (Negative) Urine Blood (Negative) Urine Nitrate (Negative) Urine Bilirubin (Negative) Urine Urobilinogen (Negative) mg/dL Ur Leukocyte Leonila ase (Negative) 01/30/21 01/30/21 Range/Units 20:22 20:31 WBC (4.0-10.0) 10^3/ uL RBC (4.1-5.3) 10^6/u L Hgb (11.7-16.6) g/dL Hct (42.0-52.0) % MCV (80-94) fL MCH (28.0-34.0) pg MCHC (30.0-36.0) g/dL RDW (12.1-15.1) % Plt Count (130-400) 10^3/c mm MPV (7.4-10.4) fL Neut % (Auto) % Lymph % (Auto) % [place] % (Auto) % Eos % (Auto) % Baso % (Auto) % Neut # (Auto) (1.8-7.7) 10^3/u L Lymph # (Auto) (0.8-4.8) 10^3/u L [place] # (Auto) (0.2-0.9) 10^3/u L Eos # (Auto) (0.0-0.8) 10^3/u L Baso # (Auto) (0.0-0.1) 10^3/u L Nucleated RBC % (a uto) % Nucleated RBCs # /100WBC PT (12.1-14.9) SECO NDS INR (0.8-1.2) Sodium (136-145) mmol/L Potassium (3.5-5.1) mmol/L Chloride (98-107) mmol/L Carbon Dioxide (22-29) mmol/L Anion Gap (5-19) BUN (8-23) mg/dL Creatinine (0.7-1.2) mg/dL GFR Calculation (90-130) mL/min Glucose (65-115) mg/dL Calculated Osmolal ity (285-295) mOsm/k g Calcium (8.5-10.5) mg/dL Magnesium (1.7-2.3) mg/dL Total Bilirubin (0.15-1.2) mg/dL AST (0-40) U/L ALT (0-41) U/L Alkaline Phosphata se (40-130) IU/L Ammonia 25 (16-60) umol/L Total Protein (6.6-8.7) g/dL Albumin (3.5-5.2) g/dL Globulin (1.3-4.6) g/dL Urine Color Straw (Yellow) Urine Appearance Clear (CLEAR) Urine pH 5 (5-7) Ur Specific Gravit y 1.015 (1.005-1.030) Urine Protein Neg (Negative) Urine Glucose (UA) Norm (Normal) Urine Ketones Negative (Negative) Urine Blood Neg (Negative) Urine Nitrate Negative (Negative) Urine Bilirubin Neg (Negative) Urine Urobilinogen Norm (Negative) mg/dL Ur Leukocyte Leonila ase Negative (Negative) Imaging Data^: CT Head: Radiologist's impression: [facility] [address] [address] Scan Report Signed Patient: Jeffrey Brown Unit #: [id number] : 1955 Age/Sex: 65 / M ADM Date: 01/30/21 Loc: ER Room/Bed: Attending Dr: Ordering Provider/Ordering MD: Leigh Ann Arboleda MD Date of Service: 01/30/21 Procedure(s): CT head wo con* [id number] Accession Number(s): [id number] Report Number: [id number] PROCEDURE INFORMATION: Exam: CT Head Without Contrast Exam date and time: 01/30/2021 10:04 PM Age: 65 years old Clinical indication: Altered mental status/memory loss and speech disturbance; Confusion or disorientation; Patient HX: Confusion and aphasia since 3-19; Additional info: AMS TECHNIQUE: Imaging protocol: Computed tomography of the head without contrast. Radiation optimization: All CT scans at this facility use at least one of these dose optimization techniques: automated exposure control; mA and/or kV adjustment per patient size (includes targeted exams where dose is matched to clinical indication); or iterative reconstruction. COMPARISON: CT head wo con* [id number] 12/28/2019 11:51 AM RADIATION DOSE METRICS: Total DLP (mGy-cm): 948.83 FINDINGS: Brain: There is mild diffuse cerebral atrophy. Patchy areas of hypoattenuation are seen in the deep white matter of the cerebral hemispheres bilaterally compatible with deep white matter microvascular disease. Cerebral ventricles: No ventriculomegaly. Bones/joints: Unremarkable. No acute fracture. Paranasal sinuses: Mild mucosal thickening and fluid is seen within the ethmoidal sinuses bilaterally. Some fluid is seen within the right frontal sinus. Mastoid air cells: Visualized mastoid air cells are well aerated. Soft tissues: Unremarkable. CT/CT head wo con* [id number] IMPRESSION: There are no acute intracranial findings. Other CT: Attestation: I personally reviewed and interpreted this imaging study as follows: Radiologist's impression: [facility] [address] [place] [address] CT Scan Report Signed Patient: Jeffrey Brown Unit #: [id number] : 1955 Age/Sex: 65 / M ADM Date: 01/30/21 Loc: ER Room/Bed: Attending Dr: Ordering Provider/Ordering MD: Leigh Ann Arboleda MD Date of Service: 01/30/21 Procedure(s): CT angio headneck* [id number] Accession Number(s): [id number] Report Number: [id number] PROCEDURE INFORMATION: Exam: CT Angiography Head With Contrast Exam date and time: 01/30/2021 10:04 PM Age: 65 years old Clinical indication: Speech disturbance; Patient HX: Confusion and aphasia since 3-19; Additional info: AMS TECHNIQUE: Imaging protocol: Computed tomography angiography of the head with intravenous contrast. 3D rendering (Not supervised by radiologist): MIP and/or 3D reconstructed images were created by the technologist. Radiation optimization: All CT scans at this facility use at least one of these dose optimization techniques: automated exposure control; mA and/or kV adjustment per patient size (includes targeted exams where dose is matched to clinical indication); or iterative reconstruction. Contrast material: VISI 320; Contrast volume: 95 ml; Contrast route: INTRAVENOUS (IV); COMPARISON: CT head wo con* [id number] 01/30/2021 10:32 PM RADIATION DOSE METRICS: Total DLP (mGy-cm): 2406.35 FINDINGS: ANTERIOR CIRCULATION: Right internal carotid artery: Calcifications are seen within the intracranial internal carotid artery. Intracranial segment is patent. There is a 40% stenosis the proximal supraclinoid segment. No aneurysm. Right middle cerebral artery: Unremarkable. No occlusion or significant stenosis. No aneurysm. Right anterior cerebral artery: Unremarkable. No occlusion or significant stenosis. No aneurysm. Left internal carotid artery: Calcifications are seen within the intracranial internal carotid artery.. Intracranial segment is patent with no significant stenosis. No aneurysm. Left middle cerebral artery: Unremarkable. No occlusion or significant stenosis. No aneurysm. Left anterior cerebral artery: Unremarkable. No occlusion or significant stenosis. No aneurysm. POSTERIOR CIRCULATION: Right vertebral artery: Unremarkable. No occlusion or significant stenosis. No aneurysm. Left vertebral artery: Unremarkable. No occlusion or significant stenosis. No aneurysm. Basilar artery: Unremarkable. No occlusion or significant stenosis. No aneurysm. Right posterior cerebral artery: Unremarkable. No occlusion or significant stenosis. No aneurysm. Left posterior cerebral artery: Unremarkable. No occlusion or significant stenosis. No aneurysm. Brain: No definite mass, mass effect, or midline shift. Cerebral ventricles: No ventriculomegaly. Bones/joints: Unremarkable. No acute fracture. Soft tissues: Unremarkable. IMPRESSION: Calcific plaques are seen within the intracranial internal carotid artery bilaterally. Calcific plaques at the origin of the supraclinoid segment of the right internal carotid artery causes approximately 40% stenosis. PROCEDURE INFORMATION: Exam: CT Angiography Neck With Contrast Exam date and time: 01/30/2021 10:04 PM Age: 65 years old Clinical indication: Speech disturbance; Patient HX: Confusion and aphasia since 3-19; Additional info: AMS TECHNIQUE: Imaging protocol: Computed tomography angiography of the neck with intravenous contrast. 3D rendering (Not supervised by radiologist): MIP and/or 3D reconstructed images were created by the technologist. Radiation optimization: All CT scans at this facility use at least one of these dose optimization techniques: automated exposure control; mA and/or kV adjustment per patient size (includes targeted exams where dose is matched to clinical indication); or iterative reconstruction. Contrast material: VISI 320; Contrast volume: 95 ml; Contrast route: INTRAVENOUS (IV); COMPARISON: CT head wo con* [id number] 01/30/2021 10:32 PM RADIATION DOSE METRICS: Total DLP (mGy-cm): 2406.35 FINDINGS: Right common carotid artery: No stenosis. No dissection or occlusion. Right internal carotid artery: No stenosis of the extracranial segment. No dissection or occlusion. Right external carotid artery: No occlusion or stenosis of the origin. Right vertebral artery: No stenosis. No dissection or occlusion. Left common carotid artery: No stenosis. No dissection or occlusion. Left internal carotid artery: No stenosis of the extracranial segment. No dissection or occlusion. Left external carotid artery: No occlusion or stenosis of the origin. Left vertebral artery: No stenosis. No dissection or occlusion. Bones/joints: No acute fracture. Soft tissues: Normal. No significant soft tissue swelling. CT/CT angio headneck* [id number] IMPRESSION: No stenosis or occlusion. EKG Data^: EKG 1: Attestation: I personally reviewed and interpreted this EKG as follows: EKG interpretation date: 01/30/21 EKG interpretation time: 21:38 Interpretation: nsr hr [address] or t wave abnormalities qrs 86 qtc 363 Discharge Plan Discharge Patient Disposition: Admitted As Inpatient Clinical Impression: Acute CVA (cerebrovascular accident) Condition: Stable Coding Level of Care Code ED [employer] Room Operator for Chg 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
[2021-01-30 21:18] LABS: Basophils % 0.5 %; Eosinophils # 0.2 10^3/uL (0.0-0.8); Eosinophils % 3.7 %; Hemoglobin 14.8 g/dL (11.7-16.6); Mean Corpuscular HGB Conc 32.9 g/dL (30.0-36.0); Mean Corpuscular Hemoglobin 31.1 pg (28.0-34.0); Mean Corpuscular Volume 94.5 fL (80-94); Mean Platelet Volume 10.1 fL (7.4-10.4); Monocytes # 0.5 10^3/uL (0.2-0.9); Monocytes % 8.3 %; Neutrophils # 3.66 10^3/uL (1.8-7.7); Nucleated Red Blood Cells % 0 %; Platelet Count 68 10^3/cmm (130-400); Red Blood Count 4.76 10^6/uL (4.1-5.3); White Blood Count 6.5 10^3/uL (4.0-10.0)
[2021-01-30 21:24] LABS: Add Urine Microscopic? NO
[2021-01-30 21:41] LABS: Bilirubin Urine Neg (Negative); Blood Urine Neg (Negative); Glucose Urine UA Norm (Normal); Ketones Urine Negative (Negative); Leukocyte Esterase Urine Negative (Negative); Nitrate Urine Negative (Negative); Protein Urine Neg (Negative); Specific Gravity, Urine 1.015 (1.005-1.030); Urine Appearance Clear (CLEAR); Urine Color Straw (Yellow); Urobilinogen Urine Norm (Negative); pH Urine 5 (5-7)
--- NOTE | 2021-01-30 21:41 | PC.NURSE ---
EKG taken and given to Dr. Arboleda
[2021-01-30 21:58] LABS: Alanine Aminotransferase 19 U/L (0-41); Albumin Level 3.9 g/dL (3.5-5.2); Alkaline Phosphatase 40 IU/L (40-130); Ammonia 25 umol/L (16-60); Aspartate Amino Transferase 19 U/L (0-40); Blood Urea Nitrogen 30 mg/dL (8-23); Calcium 9.6 mg/dL (8.5-10.5); Carbon Dioxide 26 mmol/L (22-29); Chloride 103 mmol/L (98-107); Globulin 3.1 g/dL (1.3-4.6); Glomerular Filtration Rate 40.9 mL/min (90-130); Glucose 85 mg/dL (65-115); Osmolality Calculated 293 mOsm/kg (285-295); Sodium 139 mmol/L (136-145); Total Bilirubin 0.3 mg/dL (0.15-1.2)
[2021-01-30 22:02] LABS: Anion Gap 15.1 (5-19); Potassium 5.1 mmol/L (3.5-5.1)
[2021-01-30] MEDS: iodixanol 320 mg/mL 100mL Btl IV (22:33)
[2021-01-30 22:55] VITALS: BP 180/73; PULSE 67; RESP 19; O2SAT 95
[2021-01-30] MEDS: ondansetron 2 mg/ML SDV 2 mL 4 MG IVP (23:03)
[2021-01-30] MEDS: morphine 4 mg/mL SDV 1 mL IVP (23:05)
[2021-01-31] VITALS (16 sets, daily range): BP systolic 119–162; BP diastolic 67–104; PULSE 51–75; RESP 17–20; TEMP 36.5–36.9; O2SAT 93–98
[2021-01-31 02:13] LABS: Glucose Point of Care 96 mg/dL (70-110)
--- NOTE | 2021-01-31 05:51 | P.HP_ITS ---
Providers/Chief Complaint Admitting Physician: Chanel Johnson MD Primary Care Provider: Fer Musa DO Chief Complaint: ams/sob History of Present Illness Jeffrey Brown is a 65 year old male who who presented to the emergency room with chief complaint of things not being right. For the last 4 days he has had head ache, dizziness, difficulty finding his words and speaking. He denies any focal motor weakness. He denies any vision changes. He denies any difficulty swallowing. The headache is across the left side of his jehovah's witness. He describes it is just a pain. 6 or 7 out of 10. He has never had headaches like this before. He does have some chronic neck and back pain. He sent changes to pain medications. Denies recent changes to other medications. He has not had any fevers. His was in the emergency room and reported that patient confusion were new. Given that things had not improved they came to the emergency room. CT of the head did not show acute intracranial abnormality. The right frontal sinus had some fluid in it and there was some thickening in the ethmoid sinuses bilaterally but really otherwise nothing acute noted. Neck also showed no acute abnormalities in the vasculature. There were evidence of plaques within the internal carotid arteries bilaterally with approximately 40% stenosis noted on the right side. Laboratory studies were unremarkable. Patient has known chronic kidney disease, coronary artery disease, peripheral vascular disease, diabetes mellitus, COPD and obesity. Also has hepatitis C and reports that he is on his last month of treatment for that. He cannot get the words out to give me the details but I have seen that he has seen Dr. Anna previously. Mr. Rader is being admitted for further evaluation and treatment. Review of Systems Const: Denies: fever(s), chills or change in appetite Eyes: Denies: change in vision ENMT: Denies: throat pain, dry mouth or nasal congestion Card: Denies: chest pain, palpitations or edema Resp: Denies: dyspnea, productive cough or non-productive cough GI: Denies: abdominal pain, nausea, vomiting, diarrhea or constipation : Denies: difficulty urinating Musc: Reports: neck pain and back pain Skin/Breast: Denies: rash or pruritus Neuro: Reports: headache(s), dizziness, confusion, Slurred speech present and difficulty communicating thoughts; Denies: numbness in extremities, weakness in extremities, lack of coordination or difficulty walking Psych: Denies: anxiety or depression Jesús/Lymph: Denies: easy bruising or easy bleeding Medications/Allergies Home Medications Medication Instructions Recorded Confirmed Last Taken Type Combivent Respimat 1 puff INHALATION QID 12/28/19 01/20/21 12/30/19 History Multi-Vitamin HP/Minerals 1 cap PO DAILY 12/28/19 01/20/21 12/29/19 History atorvastatin 80 mg PO DAILY 12/28/19 01/20/21 12/29/19 History cholecalciferol (vitamin D3) 2,000 unit PO DAILY 12/28/19 01/20/21 12/30/19 History ferrous sulfate 325 mg PO DAILY 12/28/19 01/20/21 12/30/19 History furosemide 20 mg PO DAILY 12/28/19 01/20/21 12/28/19 History lidocaine See Rx Instructions .ROUTE .COMPLEX 12/28/19 01/20/21 12/28/19 History omeprazole 40 mg PO DAILY 12/28/19 01/20/21 12/30/19 History metoprolol tartrate 50 mg PO BID 12/30/19 01/20/21 12/30/19 History senna 8.6 mg PO DAILY PRN 12/30/19 01/20/21 Unknown History blood-glucose meter [Blood Glucose #1 each 01/03/20 01/20/21 Unknown Rx Monitoring] carisoprodol 350 mg PO Q8H PRN #42 tab 01/03/20 01/20/21 Unknown Rx insulin glargine [Lantus Solostar 10 unit SUBCUT DAILY #15 ml 01/03/20 01/20/21 Unknown Rx U-100 Insulin] insulin lispro [Humalog KwikPen See Rx Instructions .ROUTE 01/03/20 01/20/21 Unknown Rx Insulin] .COMPLEX #15 ml levetiracetam [Keppra] 500 mg PO BID #60 tab 01/03/20 01/20/21 Unknown Rx loratadine 10 mg tablet 10 mg PO DAILY PRN 03/17/20 01/20/21 Unknown History losartan 100 mg tablet 50 mg PO DAILY 03/17/20 01/20/21 Unknown History pentoxifylline 400 mg 400 mg PO TID 03/17/20 01/20/21 Unknown History tablet,extended release aspirin 81 mg PO DAILY 08/31/20 01/20/21 Unknown History gabapentin 300 mg PO TID 08/31/20 01/20/21 Unknown History acetaminophen 650 mg PO Q6H PRN #20 tab 09/01/20 01/20/21 Unknown Rx ipratropium-albuterol 3 ml INHALATION Q6H PRN #60 ml 09/01/20 01/20/21 Unknown Rx tamsulosin 0.4 mg PO BID #60 cap 09/01/20 01/20/21 Unknown Rx tiotropium 2.5 mcg-olodaterol 2.5 2 puff INHALATION DAILY #4 g 11/25/20 01/20/21 Unknown Rx mcg/actuation mist for inhalation sofosbuvir 400 mg-velpatasvir 100 1 tab PO DAILY 84 Days #28 tab 11/29/20 01/20/21 Unknown Rx mg tablet Allergies Allergy/AdvReac Type Severity Reaction Status Date / Time No Known Allergies Allergy Verified 01/20/21 14:19 PFSH Acute PFSH: Medical History (Updated 01/31/21 @ 08:18 by Chanel Johnson MD) CAD (coronary artery disease) Cervical disc disorder with myelopathy of mid-cervical region Chronic kidney disease, stage III (moderate) COPD (chronic obstructive pulmonary disease) Degenerative joint disease of left shoulder Diabetes mellitus Frequent UTI Hepatitis C with some early cirrhosis. HCC ruled out. History of DVT (deep vein thrombosis) (~12/2018) Lumbar disc disease with radiculopathy Myoclonus dystonia Obesity (BMI 30.0-34.9) Peripheral vascular disease Tobacco abuse Surgical History (Updated 01/31/21 @ 08:32 by Chanel Johnson MD) Above-knee amputation of left lower extremity H/O hernia repair History of femoropopliteal bypass S/P AKA (above knee amputation) unilateral left Family History Father Diabetes Brother Diabetes Grandmother Diabetes Mother COPD (chronic obstructive pulmonary disease) Father No problems noted. 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 He can tell me the year, who the president is but cannot tell me any of his doctors names. HENMT: OTHER: Normocephalic atraumatic, mucous membranes are moist, edentulous, sore noted on the posterior part of the left earlobe Eye: OTHER: Pupils equally round and reactive to light, extraocular movements are intact Neck/C-Spine: OTHER: Supple, large Resp: OTHER: Scattered wheezes, no accessory muscle use noted, no Rales or rhonchi Cardio: OTHER: Regular rhythm, distant heart sounds GI: OTHER: Abdomen soft, nontender, obese with positive bowel sounds : OTHER: Deferred Extremity: OTHER: Trace pitting edema to the right lower extremity, stump intact on the left lower extremity with evidence of prior skin graft site Neuro: OTHER: Very slight left-sided facial droop, extraocular movements are intact, tongue protrusion is midline, handgrip is equal, gait was not assessed Psych: OTHER: Normal affect Skin: OTHER: Dry skin, no acute rashes or bruises noted Data : 01/30/21 20:22 01/30/21 20:22 A&P Assessment and plan (1) Headache: Status: Acute (2) Dysarthria: Status: Acute (3) Diabetes mellitus: Status: Chronic Qualifiers: Chronic kidney disease stage: stage 3 (moderate) Chronic kidney disease stage 3 subtype: stage 3b (GFR 30-44) Diabetes mellitus complication detail: with chronic kidney disease Diabetes mellitus complication status: with kidney complications Diabetes mellitus correction insulin use: with supervisor intermediates use Diabetes mellitus type: type 2 Qualified Code(s): E11.21 - Type 2 diabetes mellitus with diabetic nephropathy; N18.32 - Chronic kidney disease, stage 3b; Z79.4 - custodial (current) use of insulin (4) COPD (chronic obstructive pulmonary disease): Status: Chronic Qualifiers: COPD type: emphysema Emphysema type: centrilobular Qualified Code(s): J43.2 - Centrilobular emphysema (5) Chronic kidney disease, stage III (moderate): Status: Chronic Qualifiers: Chronic kidney disease stage 3 subtype: stage 3b (GFR 30-44) Qualified Code(s): N18.32 - Chronic kidney disease, stage 3b (6) Hepatitis C: On Epclusa Status: Chronic Qualifiers: Hepatic coma status: without hepatic coma Viral hepatitis chronicity: chronic Qualified Code(s): B18.2 - Chronic viral hepatitis C (7) Thrombocytopenia: Status: Chronic (8) Hypertension: Status: Chronic Qualifiers: Hypertension type: essential hypertension Qualified Code(s): I10 - Essential (primary) hypertension (9) Back pain: Status: Chronic Qualifiers: Back pain location: back pain in other location Chronicity: chronic Qualified Code(s): M54.9 - Dorsalgia, unspecified; G89.29 - Other chronic pain (10) S/P AKA (above knee amputation) unilateral: Status: Chronic Additional A&P Information Diagnosis at this point is suspected subacute stroke given dysarthria and confusion for 4 days. Work-up is really not that revealing. He does have a headache which by report is new for him. Renal function is around baseline. I am not sure about his current medications although it looks like in pulmonology clinic this month. With his word finding difficulties I may not be getting the entire picture. was not available at the time of my evaluation for discussion. Patient's primary complaint is that of headache. Review of records shows an admission in December 2019 when patient had some abnormal arm movements. These were quite frequent. Recommendation was for an MRI as these episodes were quite long however patient was not able to perform the study due to severe claustrophobia. Ultimately he was started on Keppra and has been on it from what I can tell since then. He is not presently complaining of this. He was ultimately supposed to have arrangements were sedated MRI of the brain and C-spine but I do not know if that ever happened. Observation admission Serial neuro exams Unable to consider performing an MRI secondary to him requiring sedation We will check echocardiogram PT, OT, speech consultations He is chronically on aspirin, add Plavix Chronically on high-dose statin Check lipid panel Check A1c Echocardiogram Insulin therapy Continue Keppra See if we can get a little bit more specific history from his as well Continue beta-blockade Need to clarify remainder of home medication list and address medicines accordingly Lovenox for DVT prophylaxis Supportive care otherwise Anticipate discharge home with his though he may need some speech therapy Plans were discussed with patient and he was given an opportunity to ask questions. He did seem to understand. Full code Attestations Medical Necessity Statement*: Currently anticipated stay less than 2 midnights in a gentleman with dysarthria and confusion that has been going on for several days. He is likely had a stroke. Given his comorbid conditions will pursue further work-up to ensure nothing reversible that we can address in regards to this and initiate therapy evaluations. Coding Level of Care Code Acute Counter Tender for g Fwd Diagnoses Headache R51.9 Dysarthria R47.1 Diabetes mellitus E11.21; N18.32; Z79.4 Chronic kidney disease stage: stage 3 (moderate) Chronic kidney disease stage 3 subtype: stage 3b (GFR 30-44) Diabetes mellitus complication detail: with chronic kidney disease Diabetes mellitus complication status: with kidney complications Diabetes mellitus correction insulin use: with supervisor intermediates use Diabetes mellitus type: type 2 COPD (chronic obstructive pulmonary disease) J43.2 COPD type: emphysema Emphysema type: centrilobular Chronic kidney disease, stage III (moderate) N18.32 Chronic kidney disease stage 3 subtype: stage 3b (GFR 30-44) Hepatitis C B18.2 Hepatic coma status: without hepatic coma Viral hepatitis chronicity: chronic Thrombocytopenia D69.6 Hypertension I10 Hypertension type: essential hypertension Back pain M54.9; G89.29 Back pain location: back pain in other location Chronicity: chronic S/P AKA (above knee amputation) unilateral Z89.619
[2021-01-31 06:33] LABS: Glucose Point of Care 103 mg/dL (70-110)
[2021-01-31] MEDS: acetaminophen 325 mg Tablet 650 MG PO ×2 (06:42→17:25)
[2021-01-31] MEDS: enoxaparin 40 mg/0.4 mL Syringe SUBCUT (06:42)
--- NOTE | 2021-01-31 08:20 | PC.NURSE ---
Per Speech Therapy, Mechanical Soft Consistent Carb diet. Wharf Tender put oder in for diet.
[2021-01-31 08:36] LABS: Chol HDL Ratio 9.65 mg/dL (1.0-5.00); Cholesterol 193 mg/dL (0-200); HDL Cholesterol 20 mg/dL (60-100); Triglycerides 502 mg/dL (0-150)
[2021-01-31 08:58] LABS: LDL Cholesterol Direct 104 mg/dL (0-100)
[2021-01-31] MEDS: tamsulosin 0.4 mg Capsule PO (09:09)
[2021-01-31] MEDS: levETIRAcetam 500 mg Tablet PO ×2 (09:09→17:25)
[2021-01-31] MEDS: metoprolol tartrate 25 mg Tablet PO ×2 (09:09→21:37)
[2021-01-31] MEDS: aspirin 81 mg EC Tablet PO (09:09)
[2021-01-31] MEDS: clopidogrel 75 mg Tablet PO (09:09)
[2021-01-31 09:49] LABS: C Reactive Protein 4.9 mg/L (0.0-4.9); Creatine Phosphokinase 98 U/L (39-308)
--- NOTE | 2021-01-31 10:34 | P.PN_ITS ---
Subjective Subjective: Interval history: Jeffrey reports he believes he is doing a little bit better today. He is having less difficulty with speech. He reports he still has a headache. He denies any nausea. History and physical was reviewed. Medications: Reviewed: Yes Vitals/I&O/Wt Last Vital Signs Temp 97.7 F 01/31/21 08:00 Pulse 66 01/31/21 08:51 Resp 20 H 01/31/21 08:51 BP 119/69 01/31/21 08:00 Pulse Ox 98 01/31/21 08:51 01/30/21 01/31/21 01/31/21 22:59 06:59 14:59 Intake Total 240 / 240 Output Total 500 / 500 Balance -500 / -500 240 / 240 Weight last 48 hrs Weight 108.862 kg Physical Exam Narrative: EXAM NARRATIVE: General exam is no apparent distress Cardiovascular regular in rhythm with a 2/6 systolic murmur Lungs clear Abdomen is soft with positive bowel sounds Extremities no cyanosis clubbing or edema Neurologic: Speech is somewhat slurred at times but it is difficult to know his baseline. No obvious focal deficits. Data : 01/30/21 20:22 01/30/21 20:22 A&P Assessment and plan (1) Headache: Still present. Could possibly be related to subacute CVA Check sedimentation rate, CRP Status: Acute (2) Dysarthria: Concern of dysarthria, as well as confusion over the last 4 days. Work-up was unrevealing. Clinical diagnosis is subacute CVA. Not candidate for MRI secondary to severe claustrophobia requiring sedation. Plavix and aspirin initiated Statin Denies any new medication PT/OT/ST Telemetry Echocardiogram CTA was performed which demonstrated no flow-limiting stenosis. Hold muscle relaxant, Neurontin currently Status: Acute (3) Diabetes mellitus: Sliding scale insulin Status: Chronic Qualifiers: Diabetes mellitus type: type 2 Diabetes mellitus long-term insulin use: with long-term use Diabetes mellitus complication status: with kidney complications Diabetes mellitus complication detail: with chronic kidney disease Chronic kidney disease stage: stage 3 (moderate) Chronic kidney disease stage 3 subtype: stage 3b (GFR 30-44) Qualified Code(s): E11.21 - Type 2 diabetes mellitus with diabetic nephropathy; N18.32 - Chronic kidney disease, stage 3b; Z79.4 - manager intermediate (current) use of insulin (4) COPD (chronic obstructive pulmonary disease): No evidence of exacerbation Status: Chronic Qualifiers: COPD type: emphysema Emphysema type: centrilobular Qualified Code(s): J43.2 - Centrilobular emphysema (5) Chronic kidney disease, stage III (moderate): At baseline Status: Chronic Qualifiers: Chronic kidney disease stage 3 subtype: stage 3b (GFR 30-44) Qualified Code(s): N18.32 - Chronic kidney disease, stage 3b (6) Hepatitis C: On Epclusa Status: Chronic Qualifiers: Viral hepatitis chronicity: chronic Hepatic coma status: without hepatic coma Qualified Code(s): B18.2 - Chronic viral hepatitis C (7) Thrombocytopenia: Chronic, likely 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 C Status: Chronic (8) Hypertension: Controlled Status: Chronic Qualifiers: Hypertension type: essential hypertension Qualified Code(s): I10 - Essential (primary) hypertension (9) Back pain: Sees pain clinic Status: Chronic Qualifiers: Back pain location: back pain in other location Chronicity: chronic Qualified Code(s): M54.9 - Dorsalgia, unspecified; G89.29 - Other chronic pain (10) S/P AKA (above knee amputation) unilateral: Status: Chronic Additional A&P Information History of abnormal arm movements for which she was placed on Keppra in the past Lovenox for DVT prophylaxis Full code Attestations Medical Necessity Statement*: Observation stay. Likely discharge tomorrow. Coding Level of Care Code Acute Braid Folder for [facility] Fwd Diagnoses Headache R51.9 Dysarthria R47.1 Diabetes mellitus E11.21; N18.32; Z79.4 Diabetes mellitus type: type 2 Diabetes mellitus long-term insulin use: with medical terminologist use Diabetes mellitus complication status: with kidney complications Diabetes mellitus complication detail: with chronic kidney disease Chronic kidney disease stage: stage 3 (moderate) Chronic kidney disease stage 3 subtype: stage 3b (GFR 30-44) COPD (chronic obstructive pulmonary disease) J43.2 COPD type: emphysema Emphysema type: centrilobular Chronic kidney disease, stage III (moderate) N18.32 Chronic kidney disease stage 3 subtype: stage 3b (GFR 30-44) Hepatitis C B18.2 Viral hepatitis chronicity: chronic Hepatic coma status: without hepatic coma Thrombocytopenia D69.6 Hypertension I10 Hypertension type: essential hypertension Back pain M54.9; G89.29 Back pain location: back pain in other location Chronicity: chronic S/P AKA (above knee amputation) unilateral Z89.614
[2021-01-31 10:39] LABS: Glucose Point of Care 225 mg/dL (70-110)
--- NOTE | 2021-01-31 11:46 | PC.NURSE ---
Accu check Pt had eaten less than one hour at time of accucheck. Will correct BS if needed at 1800.
[2021-01-31 12:10] LABS: Erythrocyte Sedimentation Rate 12 mm/hr (0-10)
--- NOTE | 2021-01-31 14:31 | PC.RESP ---
Smoking Cessation and Pulmonary Rehab information sent to patient.
[2021-01-31] MEDS: ipratropium-albuterol 3 mL Neb INHALATION ×2 (15:08→20:22)
[2021-01-31 16:41] LABS: Glucose Point of Care 101 mg/dL (70-110)
--- NOTE | 2021-01-31 17:03 | PC.OT ---
OT note: Pt reported he had a headache and his head hurt too much to be able to participate. Sent message to his nurse regarding headache pain. Will attempt tomorrow as able.
[2021-01-31 20:56] LABS: Glucose Point of Care 140 mg/dL (70-110)
[2021-01-31] MEDS: atorvastatin 40 mg Tablet 80 MG PO (21:37)
[2021-02-01] VITALS (7 sets, daily range): BP systolic 143–152; BP diastolic 72–76; PULSE 54–78; RESP 17–18; TEMP 36.6–36.7; O2SAT 92–97
--- NOTE | 2021-02-01 06:00 | USCV_ITS ---
Jeffrey Brown Age: 65 Gender: M : 1955 Exam Date: 02/01/2021 05:25 Ordering Phys: Chanel Johnson MD Technologist: TIMOTEO [place]am Location[place] [facility] [place]ication: DYSARTHRIA AND APHASIA BP: 148 / 75 HR: 55 Rhythm: Sinus Technical Quality: Very technically difficult study MEASUREMENTS (Male / Female) Normal Values 2D ECHO LV Diastolic Diameter PLAX 5.2 cm 4.2 - 5.9 / 3.9 - 5.3 cm LV Systolic Diameter PLAX 4.1 cm LV Chamber Size 2.8 cm IVS Diastolic Thickness 1.6 cm 0.6 - 1.0 / 0.6 - 0.9 cm IVS Systolic Thickness 1.3 cm LVPW Diastolic Thickness 1.7 cm 0.6 - 1.0 / 0.6 - 0.9 cm LVPW Systolic Thickness 1.5 cm RV Chamber Size 2.2 cm LVOT Diameter 2.1 cm LV Ejection Fraction 2D Teich 42.7 % LV Ejection Fraction MOD 2C 60.6 % LV Ejection Fraction 2C AL 60.0 % LA Diameter 3.9 cm LA Width 2.7 cm LA Height 4.2 cm RA Width 2.2 cm RA Height 2.7 cm Aorta at Sinotubular Diameter 3.3 cm M-MODE LV Diastolic Diameter MM 4.0 cm 4.2 - 5.9 / 3.9 - 5.3 cm LV Systolic Diameter MM 2.8 cm LV Ejection Fraction MM Teich 60.4 % IVS Diastolic Thickness MM 1.6 cm 0.6 - 1.0 / 0.6 - 0.9 cm IVS Systolic Thickness MM 1.7 cm LVPW Diastolic Thickness MM 1.7 cm 0.6 - 1.0 / 0.6 - 0.9 cm LVPW Systolic Thickness MM 1.6 cm Aortic Annulus Diameter 3.6 cm LA Ao Ratio MM 1.3 MV E Point Septal Separation 1.0 cm DOPPLER AV Peak Velocity 221.0 cm/s LVOT Peak Velocity 143.0 cm/s AV Area Cont Eq vti 2.4 cm squared AV Area Cont Eq pk 2.2 cm squared MV Area PHT 2.5 cm squared Mitral E to A Ratio 1.2 MV E' Velocity 67.5 cm/s Mitral E to MV E' Ratio 15.8 Mitral E to LV E' Lateral Ratio 14.4 Mitral E to LV E' Septal Ratio 17.8 TR Peak Velocity 151.9 cm/s TR Peak Gradient 9.2 mmHg TR Mean Velocity 103.1 cm/s TR Mean Gradient 4.9 mmHg TR Velocity Time Integral 39.5 cm TV Peak E Velocity 57.0 cm/s Right Atrial Pressure 3.0 mmHg Pulmonary Artery Systolic Pressu 12.2 mmHg PV Peak Velocity 44.0 cm/s RV Acceleration Time 0.1 s RV Ejection Time 0.3 s RV AcT/ET 0.4 FINDINGS Left Ventricle Normal left ventricular size. LV systolic function is normal with EF of 55-60%. No regional wall motion abnormalities. Diastolic function is normal Right Ventricle The right ventricle is normal in size and function. Right Atrium The right atrium is normal in size. Left Atrium The left atrium is normal in size. Mitral Valve Moderate mitral annular calcification is noted without significant stenosis or prolapse. There is mild to moderate mitral regurgitation. Aortic Valve Thickened aortic valve without significant sclerosis or stenosis. There is mild to moderate aortic regurgitation. Tricuspid Valve Structurally normal tricuspid valve without significant stenosis or regurgitation. Insufficient TR jet to calculate RVSP Pulmonic Valve Structurally normal pulmonic valve without significant stenosis. There is no pulmonic regurgitation. Pericardium Normal pericardium without effusion. Aorta Normal ascending aorta dimension. CONCLUSIONS LV systolic function is normal with EF of 55-60% Diastolic function is normal Mild to moderate mitral regurgitation. Mild to moderate aortic regurgitation is seen Compared to prior echocardiogram from 08/31/20, aortic regurgitation is now noted Eloy Otoole MD (Electronically Signed) Final Date: 01 February 2021 10:32 S
[2021-02-01] MEDS: enoxaparin 40 mg/0.4 mL Syringe SUBCUT (06:06)
[2021-02-01 06:27] LABS: Basophils % 0.4 %; Eosinophils # 0.3 10^3/uL (0.0-0.8); Eosinophils % 3.8 %; Hematocrit 44.8 % (42.0-52.0); Hemoglobin 14.9 g/dL (11.7-16.6); Lymphocytes % 30.1 %; Mean Corpuscular HGB Conc 33.3 g/dL (30.0-36.0); Mean Corpuscular Hemoglobin 31.4 pg (28.0-34.0); Mean Corpuscular Volume 94.5 fL (80-94); Mean Platelet Volume 9.9 fL (7.4-10.4); Monocytes # 0.5 10^3/uL (0.2-0.9); Neutrophils # 3.87 10^3/uL (1.8-7.7); Neutrophils % 57.3 %; Nucleated Red Blood Cells % 0 %; Platelet Count 65 10^3/cmm (130-400); Red Blood Count 4.74 10^6/uL (4.1-5.3); White Blood Count 6.8 10^3/uL (4.0-10.0)
[2021-02-01 06:47] LABS: Glucose Point of Care 122 mg/dL (70-110)
[2021-02-01 07:06] LABS: Anion Gap 14.9 (5-19); Blood Urea Nitrogen 32 mg/dL (8-23); Calcium 9.6 mg/dL (8.5-10.5); Carbon Dioxide 25 mmol/L (22-29); Chloride 103 mmol/L (98-107); Glomerular Filtration Rate 38.3 mL/min (90-130); Glucose 110 mg/dL (65-115); Osmolality Calculated 294 mOsm/kg (285-295); Potassium 4.9 mmol/L (3.5-5.1); Sodium 138 mmol/L (136-145)
[2021-02-01] MEDS: ipratropium-albuterol 3 mL Neb INHALATION (08:05)
[2021-02-01] MEDS: clopidogrel 75 mg Tablet PO (09:09)
[2021-02-01] MEDS: metoprolol tartrate 25 mg Tablet PO (09:09)
[2021-02-01] MEDS: levETIRAcetam 500 mg Tablet PO (09:09)
[2021-02-01] MEDS: aspirin 81 mg EC Tablet PO (09:10)
[2021-02-01] MEDS: tamsulosin 0.4 mg Capsule PO (09:10)
--- NOTE | 2021-02-01 09:41 | PC.OT ---
OT NOTE: OT EVALUATION ORDERS RECEIVED. PATIENT DEMONSTRATES NO DEFICITS IN BED MOBILITY, UE MX STRENGTH OR ADL PERFORMANCE. NO FURTHER SKILLED OT REQUIRED; SCREEN ONLY
--- NOTE | 2021-02-01 09:56 | PM.DCS ---
Discharge Providers Date of Admission: 01/30/21 23:17 Date of Discharge: February 01, 2021 Attending Provider at Admission: Chanel Johnson MD Attending Provider at Discharge: Haile Lorenz MD Primary Care Provider: Fer Musa DO Diagnoses at Discharge Discharge Diagnosis (1) Headache: Status: Acute (2) Dysarthria: Status: Acute (3) Diabetes mellitus: Status: Chronic Qualifiers: Diabetes mellitus type: type 2 Diabetes mellitus ad terminal makeup operator insulin use: with ad terminal makeup operator use Diabetes mellitus complication status: with kidney complications Diabetes mellitus complication detail: with chronic kidney disease Chronic kidney disease stage: stage 3 (moderate) Chronic kidney disease stage 3 subtype: stage 3b (GFR 30-44) Qualified Code(s): E11.21 - Type 2 diabetes mellitus with diabetic nephropathy; N18.32 - Chronic kidney disease, stage 3b; Z79.4 - halfway (current) use of insulin (4) COPD (chronic obstructive pulmonary disease): Status: Chronic Permanent problem details: Improved Qualifiers: COPD type: emphysema Emphysema type: centrilobular Qualified Code(s): J43.2 - Centrilobular emphysema (5) Chronic kidney disease, stage III (moderate): Status: Chronic Qualifiers: Chronic kidney disease stage 3 subtype: stage 3b (GFR 30-44) Qualified Code(s): N18.32 - Chronic kidney disease, stage 3b (6) Hepatitis C: Status: Chronic Permanent problem details: with some early cirrhosis. HCC ruled out. Qualifiers: Viral hepatitis chronicity: chronic Hepatic coma status: without hepatic coma Qualified Code(s): B18.2 - Chronic viral hepatitis C (7) Thrombocytopenia: Status: Chronic Permanent problem details: 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 C and splenomegaly. (8) Hypertension: Status: Chronic Qualifiers: Hypertension type: essential hypertension Qualified Code(s): I10 - Essential (primary) hypertension (9) Back pain: Status: Chronic Qualifiers: Back pain location: back pain in other location Chronicity: chronic Qualified Code(s): M54.9 - Dorsalgia, unspecified; G89.29 - Other chronic pain (10) S/P AKA (above knee amputation) unilateral: Status: Chronic Permanent problem details: left Reason for Visit Reason for Visit: ams/sob Hospital Course Hospital Course Jeffrey is a 65-year-old male who presented to the hospital with dizziness, difficulty finding words and speaking. CT demonstrated no significant abnormality. CTA of neck demonstrated no flow-limiting abnormality. He also complained of at least a moderate headache. He was not a candidate for an MRI secondary to his significant claustrophobia that would require active sedation. Plavix, aspirin, high-dose statin were continued. Neurontin was discontinued secondary to his abnormalities on admission as well as some renal dysfunction that was chronic. Throughout his hospital stay he improved and by February 01 he was back to his baseline. It was thought he could be discharged home with close follow-up with his primary care provider. Creatinine at discharge 1.8. Lasix as well as Neurontin was discontinued during hospital stay. By end of hospital stay he also had no headache. Physical Exam Narrative: EXAM NARRATIVE: General exam no apparent distress Cardiovascular regular rate and rhythm without murmur Lungs clear Abdomen soft with positive bowel sounds Extremities no cyanosis clubbing or edema Discharge Data Data Completed and Pending: Completed Studies During Hospitalization Category Date Time Status CT angio headneck * 57733/73091 Urge nt Cat Scan 01/30/21 20:[address] head wo con* 7 0450 Urgent Cat Scan 01/30/21 20:07 Completed XR chest 1V [place] ble [id number] Urgent Exams 01/30/21 20:07 Completed Pending at discharge Category Date Time Status CV echo complete* [id number] Routine Ultrasound 02/01/21 06:00 Taken Labs from last 24 hours 02/01/21 02/01/21 02/01/21 06:41 06:09 06:09 WBC 6.8 RBC 4.74 Hgb 14.9 Hct 44.8 MCV 94.5 H MCH 31.4 MCHC 33.3 RDW 13.0 Plt Count 65 L MPV 9.9 Neut % (Auto) 57.3 Lymph % (Auto) 30.1 [place] % (Auto) 8.0 Eos % (Auto) 3.8 Baso % (Auto) 0.4 Neut # (Auto) 3.87 Lymph # (Auto) 2.0 [place] # (Auto) 0.5 Eos # (Auto) 0.3 Baso # (Auto) 0.0 Nucleated RBC % (a uto) 0 Nucleated RBCs # 0.0 ESR Sodium 138 Potassium 4.9 Chloride 103 Carbon Dioxide 25 Anion Gap 14.9 BUN 32 H Creatinine 1.8 H GFR Calculation 38.3 L Glucose 110 POC Glucose 122 H Calculated Osmolal ity 294 Calcium 9.6 01/31/21 01/31/21 01/31/21 20:51 16:27 10:35 WBC RBC Hgb Hct MCV MCH MCHC RDW Plt Count MPV Neut % (Auto) Lymph % (Auto) [place] % (Auto) Eos % (Auto) Baso % (Auto) Neut # (Auto) Lymph # (Auto) [place] # (Auto) Eos # (Auto) Baso # (Auto) Nucleated RBC % (a uto) Nucleated RBCs # ESR 12 H Sodium Potassium Chloride Carbon Dioxide Anion Gap BUN Creatinine GFR Calculation Glucose POC Glucose 140 H 101 Calculated Osmolal ity Calcium 01/31/21 10:26 WBC RBC Hgb Hct MCV MCH MCHC RDW Plt Count MPV Neut % (Auto) Lymph % (Auto) [place] % (Auto) Eos % (Auto) Baso % (Auto) Neut # (Auto) Lymph # (Auto) [place] # (Auto) Eos # (Auto) Baso # (Auto) Nucleated RBC % (a uto) Nucleated RBCs # ESR Sodium Potassium Chloride Carbon Dioxide Anion Gap BUN Creatinine GFR Calculation Glucose POC Glucose 225 H Calculated Osmolal ity Calcium Vitals: Last Vital Signs Temp 98.1 F 02/01/21 08:00 Pulse 78 02/01/21 08:08 Resp 18 02/01/21 08:05 BP 152/76 02/01/21 08:00 Pulse Ox 97 02/01/21 08:05 Discharge Plan Discharge Patient Disposition: Home Condition: Stable Prescriptions: Continued Stiolto Respimat 2.5-2.5 mcg/actuation mist 2 puff inhalation DAILY Qty: 4 RF: 3 sofosbuvir-velpatasvir [Epclusa] 400-100 mg tablet 1 tab PO DAILY 84 Days Qty: 28 RF: 2 atorvastatin 80 mg Tablet 80 mg PO DAILY RF: 0 ferrous sulfate 325 mg (65 mg iron) Tablet 325 mg PO DAILY RF: 0 omeprazole 20 mg Capsule,Delayed Release(Dr/Ec) 40 mg PO DAILY RF: 0 Multi-Vitamin HP/Minerals Capsule 1 cap PO DAILY RF: 0 cholecalciferol (vitamin D3) 2,000 unit Tablet 2,000 unit PO DAILY RF: 0 lidocaine 5 % Ointment See Rx Instructions .ROUTE .COMPLEX RF: 0 loratadine 10 mg tablet 10 mg PO DAILY PRN (Reason: ALLERGIES) RF: 0 losartan 100 mg tablet 50 mg PO DAILY RF: 0 pentoxifylline 400 mg tablet extended release 400 mg PO TID RF: 0 senna 8.6 mg Capsule 8.6 mg PO DAILY PRN (Reason: Constipation) RF: 0 metoprolol tartrate 50 mg tablet 25 mg PO BID RF: 0 levetiracetam [Keppra] 500 mg tablet 500 mg PO BID Qty: 60 RF: 0 (DME) blood-glucose meter [Blood Glucose Monitoring] Kit See Rx Instructions .ROUTE .MEDSUPPLY Qty: 1 RF: 0 aspirin 81 mg Tablet,Chewable 81 mg PO DAILY RF: 0 acetaminophen 325 mg Tablet 650 mg PO Q6H PRN (Reason: Mild/Mod Pain Or Temp >/= 101) Qty: 20 RF: 0 ipratropium-albuterol 0.5 mg-3 mg(2.5 mg base)/3 mL Solution For Nebulization 3 ml inhalation Q6H PRN (Reason: Shortness Of Breath) Qty: 60 RF: 0 tamsulosin 0.4 mg Capsule 0.4 mg PO BID Qty: 60 RF: 0 Lantus Solostar U-100 Insulin 100 unit/mL (3 mL) insulin pen 11 unit SUBCUT DAILY RF: 0 Plavix 75 mg Tablet 75 mg PO DAILY RF: 0 albuterol sulfate 90 mcg/actuation Hfa Aerosol Inhaler 2 puff INHALATION Q4H PRN (Reason: Shortness Of Breath) RF: 0 Novolog Flexpen U-100 Insulin 100 unit/mL (3 mL) Insulin Pen See Rx Instructions .ROUTE .COMPLEX RF: 0 Discontinued furosemide 20 mg Tablet 20 mg PO DAILY RF: 0 gabapentin 300 mg Capsule 300 mg PO BEDTIME RF: 0 Referrals: Fer Musa DO [Primary Care Provider] - 4-7 days (Follow-up with CBC and BMP) Patient Instructions: Self Care Measures After a Stroke (DC) Activity Restrictions/Additional Instructions: Take all medicine as prescribed. Note the ER Neurontin and Lasix have been discontinued. Take Plavix and aspirin daily. On follow-up get a BMP and CBC as instructed. Avoid all anti-inflammatories. Discharge Attestations Time Spent in Discharge Care*: greater than 30 min Quality Metrics Clinical Quality Measures During this hospital stay, did patient experience: Stroke Contraindication to Antithrombotic: Antithrombotic prescribed Contraindication to Anticoagulation: Overlap treatment not indicated Contraindication to Statin: Statin prescribed Coding Level of Care Code Acute g FW VT note Diagnoses Headache R51.9 Dysarthria R47.1 Diabetes mellitus E11.21; N18.32; Z79.4 Diabetes mellitus type: type 2 Diabetes mellitus ad terminal makeup operator insulin use: with half-way use Diabetes mellitus complication status: with kidney complications Diabetes mellitus complication detail: with chronic kidney disease Chronic kidney disease stage: stage 3 (moderate) Chronic kidney disease stage 3 subtype: stage 3b (GFR 30-44) COPD (chronic obstructive pulmonary disease) J43.2 COPD type: emphysema Emphysema type: centrilobular Chronic kidney disease, stage III (moderate) N18.32 Chronic kidney disease stage 3 subtype: stage 3b (GFR 30-44) Hepatitis C B18.2 Viral hepatitis chronicity: chronic Hepatic coma status: without hepatic coma Thrombocytopenia D69.6 Hypertension I10 Hypertension type: essential hypertension Back pain M54.9; G89.29 Back pain location: back pain in other location Chronicity: chronic S/P AKA (above knee amputation) unilateral Z89.619
[2021-02-01 11:01] LABS: Glucose Point of Care 151 mg/dL (70-110)
== END 2021-02-01 12:33 | disposition home or self-care (01) ==
LOC: ER 23:19 → MEDSURG 23:28
PROVIDERS: Admitting Provider Hospitalist; Emergency Provider Emergency Medicine; PCP Emergency Medicine Emergency Medical Services; Visit Provider Internal Medicine
DX: R51.9 Headache, unspecified (principal); R47.1 Dysarthria and anarthria; E11.21 Type 2 diabetes mellitus with diabetic nephropathy; I13.0 Hypertensive heart and chronic kidney disease with heart failure and stage 1 through stage 4 chronic kidney disease, or unspecified chronic kidney disease; N18.32 Chronic kidney disease, stage 3b; Z79.4 Long term (current) use of insulin; J43.2 Centrilobular emphysema; B18.2 Chronic viral hepatitis C; D69.6 Thrombocytopenia, unspecified; M54.9 Dorsalgia, unspecified; G89.29 Other chronic pain; Z89.619 Acquired absence of unspecified leg above knee; I25.10 Atherosclerotic heart disease of native coronary artery without angina pectoris; Z86.718 Personal history of other venous thrombosis and embolism; E66.9 Obesity, unspecified; Z68.33 Body mass index [BMI] 33.0-33.9, adult; F17.210 Nicotine dependence, cigarettes, uncomplicated
CPT/HCPCS: 36415; 36416; 70450; 70496; 70498; 71045; 80048; 80053; 80061; 81003; 82140; 82550; 82962; 83721; 83735; 85025; 85610; 85651; 86140; 92523; 92610; 93005; 93306; 94640; 96361; 96372; 96374; 96375; 97116; 97161; 99285; G0378; J1650; J2270; J2405; Q9967

== ENCOUNTER → 2021-02-08 11:22 | Outpatient (BNVA) | payer OTHER, SELFPAY | PROVIDERS: PCP Emergency Medicine Emergency Medical Services; Visit Provider Anesthesiology Pain Medicine | DX: G89.29 Other chronic pain (principal); M54.9 Dorsalgia, unspecified; M47.816 Spondylosis without myelopathy or radiculopathy, lumbar region; M51.36 Other intervertebral disc degeneration, lumbar region; M51.16 Intervertebral disc disorders with radiculopathy, lumbar region; F17.210 Nicotine dependence, cigarettes, uncomplicated | CPT/HCPCS: 99214 ==

== ENCOUNTER → 2021-03-01 09:19 | Outpatient (BNVA) | payer OTHER, SELFPAY | PROVIDERS: PCP Emergency Medicine Emergency Medical Services; Visit Provider Internal Medicine | DX: B19.20 Unspecified viral hepatitis C without hepatic coma (principal) | CPT/HCPCS: 87522 ==

== ENCOUNTER → 2021-03-15 13:21 | Outpatient (BNVA) | payer OTHER, SELFPAY | PROVIDERS: PCP Emergency Medicine Emergency Medical Services; Visit Provider Anesthesiology Pain Medicine | DX: G89.29 Other chronic pain (principal); M47.816 Spondylosis without myelopathy or radiculopathy, lumbar region; M54.9 Dorsalgia, unspecified | CPT/HCPCS: 64635; 64636; J1030 ==

== ENCOUNTER 2021-03-23 14:36 | Emergency (ER) | payer OTHER, SELFPAY ==
[2021-03-23 14:44] VITALS: BP 137/82; PULSE 65; RESP 20; TEMP 36.4; O2SAT 97; BMI 36.2
[2021-03-23 17:06] VITALS: BP 159/66; PULSE 64; RESP 16; O2SAT 94
--- NOTE | 2021-03-23 17:24 | XRR_ITS ---
PROCEDURE INFORMATION: Exam: XR Chest Exam date and time: 03/23/2021 5:33 PM Age: 65 years old Clinical indication: Shortness of breath; Additional info: Chest pain TECHNIQUE: Imaging protocol: XR of the chest. Views: 1 view. Total images: 1 COMPARISON: CR XR chest 1V portable [id number] 01/30/2021 9:06 PM FINDINGS: Lungs: No visible active interstitial or alveolar airspace disease. Pleural spaces: Unremarkable. No pleural effusion. No pneumothorax. Heart/Mediastinum: Cardiac structures and configuration with mild arteriosclerosis. 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 Soft tissues: Heavy body habitus. XR/XR chest 1V portable [id number] IMPRESSION: Nonacute.
--- NOTE | 2021-03-23 17:24 | ECG_ITS ---
[facility] Test Date: 2021-03-23 Pat Name: Jeffrey Brown Department: Room: Gender: Male Mental Telepathist: : 1955 Requested By: Avelina Lewis Order Number: [id number] Janet MD: Carly Muro M.D. Measurements Intervals [place] Rate: 57 P: 16 NH: 104 QRS: -7 QRSD: 87 T: 37 QT: 413 QTc: 403 Interpretive Statements SINUS BRADYCARDIA WITH SHORT NH INTERVAL Compared to ECG 01/30/2021 21:38:47 Short NH interval now present Sinus rhythm no longer present Ventricular premature complex(es) no longer present Left-axis deviation no longer present Electronically Signed On 03-24-2021 14:10:14 CDT by Carly Muro M.D. [id number]
--- NOTE | 2021-03-23 17:54 | ED_ITS ---
HPI - SOB/Dyspnea General: Chief Complaint: Shortness of Breath/Dyspnea Stated Complaint: Trouble Breathing/Constipation Time Seen by Provider: 03/23/21 17:05 Source: patient Mode of arrival: ambulatory Limitations: no limitations History of Present Illness: HPI Narrative: Patient is a 65-year-old male who presents to ED today with complaint of shortness of breath. He states shortness of breath has been present over the past 3 to 4 days. It is worsened with lying flat. He has no known history of CHF. He does have a history of CAD and reports multiple stents. He does have a history of COPD. Patient is not been running fevers. He has not had a cough. He does report some sinus pain/nasal congestion. Patient currently is not experiencing pain. He does report some mild constipation over the past few days but does not have abdominal pain or vomiting. MD elicited complaint: shortness of breath Pertinent past history: COPD Onset (ago): day(s) Timing: constant Severity: moderate Exacerbating factors: lying flat and exertion Relieving factors: nothing Known history of: COPD Associated symptoms: Reports orthopnea; Deny abdominal pain, chest congestion, chest pain, extremity pain, fever(s), hemoptysis, lightheadedness, nausea, palpitations, syncope or vomiting Related Data: Home oxygen amount: none Review of Systems Const: Denies: fever(s), chills, body aches, fatigue or malaise ENMT: Reports: nasal congestion and sinus pain; Denies: throat pain or odynophagia Card: Reports: dyspnea on exertion and orthopnea; Denies: chest pain, palpitations, irregular heart rhythm, edema, swelling of feet/ankles, lightheadedness, syncope or pre-syncope Resp: Reports: dyspnea; Denies: productive cough, non-productive cough, wheezing, stridor, pain on inspiration, hemoptysis or chest congestion GI: Reports: constipation; Denies: abdominal pain, nausea, vomiting or change in stool character : Denies: flank pain, difficulty urinating, dysuria, urinary frequency, urinary urgency or urinary hesitancy Musc: Denies: neck pain, back pain, extremity pain, extremity swelling, joint pain or joint swelling Skin/Breast: Denies: rash Neuro: Denies: headache(s), numbness in extremities, weakness in extremities or sensory changes PFSH ED PFSH: Medical History CAD (coronary artery disease) Cervical disc disorder with myelopathy of mid-cervical region Chronic kidney disease, stage III (moderate) COPD (chronic obstructive pulmonary disease) Coronary artery calcification Degenerative joint disease of left shoulder Diabetes mellitus Frequent UTI Hepatitis C with some early cirrhosis. HCC ruled out. History of DVT (deep vein thrombosis) (~12/2018) Lumbar disc disease with radiculopathy Myoclonus dystonia Obesity (BMI 30.0-34.9) Peripheral vascular disease Tobacco abuse Surgical History Above-knee amputation of left lower extremity H/O hernia repair History of femoropopliteal bypass S/P AKA (above knee amputation) unilateral left Family History Father Diabetes Brother Diabetes Grandmother Diabetes Mother COPD (chronic obstructive pulmonary disease) Father No problems noted. 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 Pets and animals: No History of recent travel: No Current gender identity: Male Physical Exam Const: COMMON NORMALS: no acute distress, patient oriented x3, no limitations and alert GENERAL APPEARANCE: cooperative NUTRITIONAL APPEARANCE: obese ORIENTATION/CONSCIOUSNESS: Yes awake, Yes oriented to person, Yes oriented to place and Yes oriented to time HENMT: COMMON NORMALS: normocephalic and atraumatic HEAD & SCALP: normocephalic and atraumatic Neck/C-Spine: COMMON NORMALS: full ROM and no lymphadenopathy GENERAL: No JVD Chest: COMMONS NORMALS: normal inspection of the chest and normal palpation of entire chest wall Resp: COMMON NORMALS: normal respiratory effort and clear to auscultation bilaterally EFFORT & INSPECTION: Yes able to speak in complete sentences, No tachypneic, No respiratory distress, No labored, No retractions and No uses accessory muscles AUSCULTATION: clear to auscultation bilaterally Cardio: COMMON NORMALS: regular rate and regular rhythm RATE: regular rate RHYTHM: regular rhythm HEART SOUNDS: Murmur heart sound present GI: COMMON NORMALS: Soft to palpation and non-tender INSPECTION: Yes normal to inspection AUSCULTATION: Yes normoactive bowel sounds PALPATION: Yes Soft to palpation : COMMON NORMALS: Yes no CVA tenderness BLADDER/KIDNEY EXAM: Yes no CVA tenderness Back/Pelvis: COMMON NORMALS: no CVA tenderness Extremity: COMMON NORMALS: normal to inspection, no clubbing, cyanosis or edema, no calf tenderness and no pedal edema NARRATIVE EXTREMITY EXAM: L above knee amputation Neuro: COMMON NORMALS: patient oriented x3 SENSORIUM/ORIENTATION: Yes alert, Yes oriented to person, Yes oriented to place and Yes oriented to time Skin: COMMON NORMALS: no rashes or lesions noted GENERAL SKIN EXAM: no rashes or lesions noted Course Vital Signs: Vital signs: Vital Signs Temperature 97.5 F L 03/23/21 14:44 Pulse Rate 62 03/23/21 20:14 Respiratory Rate 18 03/23/21 20:14 Blood Pressure 166/78 03/23/21 20:14 Pulse Oximetry 93 03/23/21 20:14 MDM - SOB/Dyspnea MDM Narrative: Medical decision making narrative: Patient does not have any chest pain. He complains of shortness of breath mainly with lying flat. Clinically he does not appear in acute overload status. He has no lower extremity edema, JVD, he has normal lung sounds. His CXR is normal. BNP is elevated slightly over 1200. He is not requiring oxygen. He has chronic BUN/Cr elevations. Chronic thrombocytopenia. Baseline troponin is 36 with a nonsignificant delta. This is most likely secondary to his elevations of the BNP. Patient has had recent echocardiogram on 02/01/2021 showing a a normal systolic function with an EF of 55 to 60%. Diastolic function was also normal. At this point I think patient is stable to go home to follow-up with Dr. Salomon as an outpatient. He was given 40 mg IV Lasix and will be placed on Lasix at home. Return to ED precautions given. Lab Data: Attestation: I reviewed the patient's lab results. Labs: Lab Results 03/23/21 03/23/21 03/23/21 Range/Units 19:01 19:01 19:01 WBC 8.3 (4.0-10.0) 10^3/ uL RBC 4.74 (4.1-5.3) 10^6/u L Hgb 14.6 (11.7-16.6) g/dL Hct 46.7 (42.0-52.0) % MCV 98.5 H (80-94) fL MCH 30.8 (28.0-34.0) pg MCHC 31.3 (30.0-36.0) g/dL RDW 13.6 (12.1-15.1) % Plt Count 73 L (130-400) 10^3/c mm MPV 10.3 (7.4-10.4) fL Neut % (Auto) 62.5 % Lymph % (Auto) 27.3 % [place] % (Auto) 5.9 % Eos % (Auto) 3.4 % Baso % (Auto) 0.5 % Neut # (Auto) 5.22 (1.8-7.7) 10^3/u L Lymph # (Auto) 2.3 (0.8-4.8) 10^3/u L [place] # (Auto) 0.5 (0.2-0.9) 10^3/u L Eos # (Auto) 0.3 (0.0-0.8) 10^3/u L Baso # (Auto) 0.0 (0.0-0.1) 10^3/u L Nucleated RBC % (a uto) 0 % Nucleated RBCs # 0.0 /100WBC Sodium 140 (136-145) mmol/L Potassium 4.4 (3.5-5.1) mmol/L Chloride 105 (98-107) mmol/L Carbon Dioxide 25 (22-29) mmol/L Anion Gap 14.4 (5-19) BUN 26 H (8-23) mg/dL Creatinine 1.9 H (0.7-1.2) mg/dL GFR Calculation 36.0 L (90-130) mL/min Glucose 109 (65-115) mg/dL Calculated Osmolal ity 295 (285-295) mOsm/k g Lactic Acid 1.5 (0.5-2.2) mmol/L Calcium 9.0 (8.5-10.5) mg/dL Total Bilirubin 0.8 (0.15-1.2) mg/dL AST 19 (0-40) U/L ALT 18 (0-41) U/L Alkaline Phosphata se 39 L (40-130) IU/L Troponin T Baselin e (0-15) ng/L Troponin T 120 Min darin (0-15) ng/L Delta Troponin T (0-10) ABS# NT-Pro-B Natriuret Pep 1202 H (0-125) pg/mL Total Protein 7.3 (6.6-8.7) g/dL Albumin 4.2 (3.5-5.2) g/dL Globulin 3.1 (1.3-4.6) g/dL 03/23/21 03/23/21 Range/Units 19:01 21:09 WBC (4.0-10.0) 10^3/ uL RBC (4.1-5.3) 10^6/u L Hgb (11.7-16.6) g/dL Hct (42.0-52.0) % MCV (80-94) fL MCH (28.0-34.0) pg MCHC (30.0-36.0) g/dL RDW (12.1-15.1) % Plt Count (130-400) 10^3/c mm MPV (7.4-10.4) fL Neut % (Auto) % Lymph % (Auto) % [place] % (Auto) % Eos % (Auto) % Baso % (Auto) % Neut # (Auto) (1.8-7.7) 10^3/u L Lymph # (Auto) (0.8-4.8) 10^3/u L [place] # (Auto) (0.2-0.9) 10^3/u L Eos # (Auto) (0.0-0.8) 10^3/u L Baso # (Auto) (0.0-0.1) 10^3/u L Nucleated RBC % (a uto) % Nucleated RBCs # /100WBC Sodium (136-145) mmol/L Potassium (3.5-5.1) mmol/L Chloride (98-107) mmol/L Carbon Dioxide (22-29) mmol/L Anion Gap (5-19) BUN (8-23) mg/dL Creatinine (0.7-1.2) mg/dL GFR Calculation (90-130) mL/min Glucose (65-115) mg/dL Calculated Osmolal ity (285-295) mOsm/k g Lactic Acid (0.5-2.2) mmol/L Calcium (8.5-10.5) mg/dL Total Bilirubin (0.15-1.2) mg/dL AST (0-40) U/L ALT (0-41) U/L Alkaline Phosphata se (40-130) IU/L Troponin T Baselin e 36 H (0-15) ng/L Troponin T 120 Min darin 36.90 H (0-15) ng/L Delta Troponin T 0.90 (0-10) ABS# NT-Pro-B Natriuret Pep (0-125) pg/mL Total Protein (6.6-8.7) g/dL Albumin (3.5-5.2) g/dL Globulin (1.3-4.6) g/dL Imaging Data^: CXR: Radiologist's impression: [address] [address] XRay Report Signed Patient: Jeffrey Brown Unit #: [id number] : 1955 Age/Sex: 65 / M ADM Date: 03/23/21 Loc: ER Room/Bed: Attending Dr: Ordering Provider/Ordering MD: Avelina Lewis Date of Service: 03/23/21 Procedure(s): XR chest 1V portable [id number] Accession Number(s): [id number] Report Number: [id number] PROCEDURE INFORMATION: Exam: XR Chest Exam date and time: 03/23/2021 5:33 PM Age: 65 years old Clinical indication: Shortness of breath; Additional info: Chest pain TECHNIQUE: Imaging protocol: XR of the chest. Views: 1 view. Total images: 1 COMPARISON: CR XR chest 1V portable [id number] 01/30/2021 9:06 PM FINDINGS: Lungs: No visible active interstitial or alveolar airspace disease. Pleural spaces: Unremarkable. No pleural effusion. No pneumothorax. Heart/Mediastinum: Cardiac structures and configuration with mild arteriosclerosis. 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 Soft tissues: Heavy body habitus. XR/XR chest 1V portable [id number] IMPRESSION: Nonacute. Dictated By: Elijah Suárez Signed By: Elijah Suárez Signed Date/Time: 03/23/211813 DD/ 11 EKG Data^: EKG 1: EKG Interpretation Date: 03/23/21 EKG interpretation time: 18:21 Interpretation: Sinus bradycardia with short OK interval Rate [address] elevation or depression changes noted EKG signed off by Dr. Arboleda Discharge Plan Discharge Patient Disposition: Home Clinical Impression: Elevated brain natriuretic peptide (BNP) level Condition: Stable Prescriptions: New Lasix 20 mg tablet 20 mg PO DAILY Qty: 20 RF: 0 No Action Stiolto Respimat 2.5-2.5 mcg/actuation mist 2 puff inhalation DAILY Qty: 4 RF: 3 sodium chloride 0.9 % Solution 5 ml epidural ONCE Qty: 1 RF: 0 methylprednisolone acetate [Depo-Medrol] 40 mg/mL suspension 40 mg Infiltration ONCE Qty: 1 RF: 0 atorvastatin 80 mg Tablet 80 mg PO DAILY@1999 RF: 0 ferrous sulfate 325 mg (65 mg iron) Tablet 325 mg PO DAILY@1100 RF: 0 omeprazole 20 mg Capsule,Delayed Release(Dr/Ec) 40 mg PO DAILY@1100 RF: 0 Multi-Vitamin HP/Minerals Capsule 1 cap PO DAILY@1100 RF: 0 cholecalciferol (vitamin D3) 2,000 unit Tablet 2,000 unit PO DAILY@1100 RF: 0 lidocaine 5 % Ointment See Rx Instructions .ROUTE .COMPLEX RF: 0 losartan 100 mg tablet 50 mg PO DAILY@1100 RF: 0 pentoxifylline 400 mg tablet extended release 400 mg PO BID@ RF: 0 senna 8.6 mg Capsule 8.6 mg PO DAILY PRN (Reason: Constipation) RF: 0 metoprolol tartrate 50 mg tablet 25 mg PO BID@ RF: 0 levetiracetam [Keppra] 500 mg tablet 500 mg PO BID Qty: 60 RF: 0 (DME) blood-glucose meter [Blood Glucose Monitoring] Kit See Rx Instructions .ROUTE .MEDSUPPLY Qty: 1 RF: 0 aspirin 81 mg Tablet,Chewable 81 mg PO DAILY@1100 RF: 0 acetaminophen 325 mg Tablet 650 mg PO Q6H PRN (Reason: Mild/Mod Pain Or Temp >/= 101) Qty: 20 RF: 0 ipratropium-albuterol 0.5 mg-3 mg(2.5 mg base)/3 mL Solution For Nebulization 3 ml inhalation Q6H PRN (Reason: Shortness Of Breath) Qty: 60 RF: 0 Lantus Solostar U-100 Insulin 100 unit/mL (3 mL) insulin pen 17 unit SUBCUT DAILY@1700 RF: 0 clopidogrel [Plavix] 75 mg Tablet 75 mg PO DAILY@1100 RF: 0 albuterol sulfate 90 mcg/actuation Hfa Aerosol Inhaler 2 puff INHALATION Q4H PRN (Reason: Shortness Of Breath) RF: 0 insulin aspart U-100 [Novolog Flexpen U-100 Insulin] 100 unit/mL (3 mL) Insulin Pen See Rx Instructions .ROUTE .COMPLEX RF: 0 ibuprofen 200 mg Tablet 200 - 400 mg PO Q6H PRN (Reason: Pain) RF: 0 tamsulosin 0.4 mg capsule 0.4 mg PO BID@1100,2000 RF: 0 fluticasone propionate 50 mcg/actuation [place],Suspension 2 spray INTRANASAL DAILY RF: 0 Discharge Orders: Discharge ED (Routine); Ordered 03/23/21 Ordered By: Avelina Lewis Referrals: Yessica Salomon MD [Physician] - Fer Musa DO [Primary Care Provider] - Activity Restrictions/Additional Instructions: As we discussed case management should contact you to set you up with a follow- up appointment with your technical services specialist Dr. Salomon. You need to return to the emergency department for worsening shortness of breath, difficulty breathing, chest pain, severe lower extremity swelling, or any other concerns you may have. Coding Level of Care Code ED Contact And Service Clerks Supervisor for [place] 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
[2021-03-23 19:38] LABS: Basophils % 0.5 %; Eosinophils # 0.3 10^3/uL (0.0-0.8); Eosinophils % 3.4 %; Hematocrit 46.7 % (42.0-52.0); Hemoglobin 14.6 g/dL (11.7-16.6); Lymphocytes # 2.3 10^3/uL (0.8-4.8); Lymphocytes % 27.3 %; Mean Corpuscular HGB Conc 31.3 g/dL (30.0-36.0); Mean Corpuscular Hemoglobin 30.8 pg (28.0-34.0); Mean Corpuscular Volume 98.5 fL (80-94); Mean Platelet Volume 10.3 fL (7.4-10.4); Monocytes # 0.5 10^3/uL (0.2-0.9); Monocytes % 5.9 %; Neutrophils # 5.22 10^3/uL (1.8-7.7); Neutrophils % 62.5 %; Nucleated Red Blood Cells % 0 %; Platelet Count 73 10^3/cmm (130-400); Red Blood Count 4.74 10^6/uL (4.1-5.3); Red Cell Distribution Width 13.6 % (12.1-15.1); White Blood Count 8.3 10^3/uL (4.0-10.0)
[2021-03-23 19:49] LABS: Troponin(5th) Baseline 36 ng/L (0-15)
[2021-03-23 19:50] LABS: Lactic Sepsis W/Reflex 1.5 mmol/L (0.5-2.2)
[2021-03-23 19:56] LABS: Alanine Aminotransferase 18 U/L (0-41); Albumin Level 4.2 g/dL (3.5-5.2); Alkaline Phosphatase 39 IU/L (40-130); Anion Gap 14.4 (5-19); Aspartate Amino Transferase 19 U/L (0-40); Blood Urea Nitrogen 26 mg/dL (8-23); Carbon Dioxide 25 mmol/L (22-29); Chloride 105 mmol/L (98-107); Globulin 3.1 g/dL (1.3-4.6); Glucose 109 mg/dL (65-115); NT Pro B Type Natriuretic Pept 1202 pg/mL (0-125); Osmolality Calculated 295 mOsm/kg (285-295); Potassium 4.4 mmol/L (3.5-5.1); Sodium 140 mmol/L (136-145); Total Bilirubin 0.8 mg/dL (0.15-1.2); Total Protein 7.3 g/dL (6.6-8.7)
[2021-03-23 20:14] VITALS: BP 166/78; PULSE 62; RESP 18; O2SAT 93
[2021-03-23] MEDS: FUROsemide 40 mg Tablet PO (22:28)
--- NOTE | 2021-03-24 11:19 | DCPLANNER ---
marketing segment manager had message to schedule a follow up appointment for patient with cardiology, Dr. Salomon. marketing segment manager called [facility], spoke with Josey, gave clinic patients information. A follow up appointment was scheduled for Thursday, March 29 at 4:[address] Salomon at [facility]. marketing segment manager called patient and spoke with his life partner, gave her the appointment information. Patient has VA insurance, family independence case manager emailed patients information to Ka[facility] with [facility] for the authorization process to be started.
--- NOTE | 2021-04-28 15:06 | DCPLANNER ---
Patient had a follow up appointment scheduled for 03.29.21 with heart care - appointment was cancelled.
== END 2021-03-23 22:31 | disposition home or self-care (01) ==
PROVIDERS: Emergency Provider Physician Assistant; PCP Emergency Medicine Emergency Medical Services
DX: R79.89 Other specified abnormal findings of blood chemistry (principal); Z79.82 Long term (current) use of aspirin; Z79.4 Long term (current) use of insulin; I25.10 Atherosclerotic heart disease of native coronary artery without angina pectoris; E11.22 Type 2 diabetes mellitus with diabetic chronic kidney disease; N18.30 Chronic kidney disease, stage 3 unspecified; J44.9 Chronic obstructive pulmonary disease, unspecified; Z86.19 Personal history of other infectious and parasitic diseases; Z89.612 Acquired absence of left leg above knee; Z87.891 Personal history of nicotine dependence
CPT/HCPCS: 36415; 71045; 80053; 83605; 83880; 84484; 85025; 93005; 99284

== ENCOUNTER → 2021-04-07 14:37 | Outpatient (BNVA) | payer OTHER, SELFPAY | PROVIDERS: PCP Emergency Medicine Emergency Medical Services; Visit Provider Anesthesiology Pain Medicine | DX: G89.29 Other chronic pain (principal); M54.9 Dorsalgia, unspecified; M47.816 Spondylosis without myelopathy or radiculopathy, lumbar region; M51.36 Other intervertebral disc degeneration, lumbar region; M51.16 Intervertebral disc disorders with radiculopathy, lumbar region | CPT/HCPCS: 99213 ==

== ENCOUNTER 2021-04-15 18:40 | Inpatient (IN) | payer OTHER, MEDICARE, SELFPAY ==
--- NOTE | 2021-04-15 18:59 | ECG_ITS ---
[facility] Test Date: 2021-04-15 Pat Name: Jeffrey Brown Department: Room: Gender: Male Assistant Public Defender: : 1955 Requested By: Miguel Angel Casey Order Number: [id number] Reading MD: SHANNAN CHOI Measurements Intervals [place] Rate: 57 P: 47 CA: 176 QRS: -40 QRSD: 88 T: 21 QT: 394 QTc: 384 Interpretive Statements SINUS BRADYCARDIA MARKED LEFT AXIS DEVIATION [QRS AXIS < -30] POSSIBLE INFERIOR MYOCARDIAL INFARCTION [30 ms Q WAVE IN II/aVF], PROBABLY OLD Compared to ECG 03/23/2021 18:21:45 Left-axis deviation now present Myocardial infarct finding now present Short CA interval no longer present Electronically Signed On 04-16-2021 20:21:13 CDT by SHANNAN CHOI [id number]
[2021-04-15 19:02] VITALS: BP 162/72; PULSE 57; RESP 16; TEMP 36.8; O2SAT 93
[2021-04-15 19:55] LABS: Basophils % 0.3 %; Eosinophils # 0.2 10^3/uL (0.0-0.8); Eosinophils % 3.4 %; Hematocrit 43.4 % (42.0-52.0); Hemoglobin 14.8 g/dL (11.7-16.6); Lymphocytes % 29.8 %; Mean Corpuscular HGB Conc 34.1 g/dL (30.0-36.0); Mean Corpuscular Hemoglobin 31.4 pg (28.0-34.0); Mean Corpuscular Volume 91.9 fL (80-94); Mean Platelet Volume 10.1 fL (7.4-10.4); Monocytes # 0.5 10^3/uL (0.2-0.9); Monocytes % 7.2 %; Neutrophils # 4.03 10^3/uL (1.8-7.7); Neutrophils % 59.2 %; Nucleated Red Blood Cells % 0 %; Platelet Count 89 10^3/cmm (130-400); Red Blood Count 4.72 10^6/uL (4.1-5.3); Red Cell Distribution Width 13.8 % (12.1-15.1); White Blood Count 6.8 10^3/uL (4.0-10.0)
[2021-04-15 20:12] LABS: Troponin T (5th) Once 31 ng/L (0-15)
[2021-04-15 20:14] LABS: Alanine Aminotransferase 19 U/L (0-41); Albumin Level 4.4 g/dL (3.5-5.2); Alkaline Phosphatase 40 IU/L (40-130); Anion Gap 17.1 (5-19); Aspartate Amino Transferase 24 U/L (0-40); Blood Urea Nitrogen 22 mg/dL (8-23); Calcium 9.3 mg/dL (8.5-10.5); Carbon Dioxide 25 mmol/L (22-29); Chloride 107 mmol/L (98-107); Glomerular Filtration Rate 40.9 mL/min (90-130); Glucose 100 mg/dL (65-115); Osmolality Calculated 303 mOsm/kg (285-295); Potassium 4.1 mmol/L (3.5-5.1); Sodium 145 mmol/L (136-145); Total Bilirubin 0.7 mg/dL (0.15-1.2); Total Protein 7.4 g/dL (6.6-8.7)
[2021-04-15 20:18] LABS: Acetaminophen < 5.0 ug/mL (10-30); Add Urine Microscopic? NO; Charge for UA Resulting for Rev; Salicylate < 0.3 mg/dL (3-10)
[2021-04-15 20:30] LABS: Amphetamines Screen Urine Negative (Negative); Barbiturates Screen Urine Negative (Negative); Benzodiazepines Screen Urine Negative (Negative); Cocaine Screen Urine Negative (Negative); Opiate Screen Urine Negative (Negative); PCP Screen Urine Negative (Negative); THC Screen Urine Negative (Negative)
[2021-04-15 20:37] LABS: Bilirubin Urine Neg (Negative); Blood Urine Neg (Negative); Glucose Urine UA Norm (Normal); Ketones Urine Negative (Negative); Leukocyte Esterase Urine Negative (Negative); Nitrate Urine Negative (Negative); Protein Urine Neg (Negative); Urine Appearance Clear (CLEAR); Urine Color Yellow (Yellow); Urobilinogen Urine Norm (Negative); pH Urine 5 (5-7)
[2021-04-15 21:15] VITALS: BP 157/79; PULSE 79; RESP 16; TEMP 37; O2SAT 92
[2021-04-15 22:33] VITALS: BP 157/79; PULSE 75; RESP 18; TEMP 36.9; O2SAT 92
--- NOTE | 2021-04-15 22:38 | W.ED.PSYCH ---
HPI - Psych General: Chief Complaint: Psychiatric Symptoms Stated Complaint: DEPRESSION Time Seen by Provider: 04/15/21 18:45 History of Present Illness: HPI Narrative: The patient is a 65-year-old male with past medical history diabetes, vascular disease, left [id number] amputation. He comes to the ER complaining of depression. He is tearful and says that he feels he is burden to everyone around him and he does not want to speak to them because no one will listen to him. He denies suicidal ideations. Denies any medical complaints today. He notes he also has chronic kidney disease which has been stable. MD complaint: feels depressed Duration: constant History of same: Yes Relieving factors: none Context: significant life stressor Associated psychiatric symptoms: depression Associated symptoms: Reports depression; Deny suicidal ideation Review of Systems General: Reports: 10 or more systems reviewed and unremarkable except in HPI and below Const: Denies: fatigue Eyes: Denies: change in vision, blurry vision or eye redness ENMT: Denies: throat pain, swelling of lips/tongue, ear or mastoid pain or nasal congestion Card: Denies: chest pain, palpitations, irregular heart rhythm, edema, dyspnea on exertion or orthopnea Resp: Denies: dyspnea, productive cough or non-productive cough GI: Denies: abdominal pain, diarrhea or GI cramping : Denies: flank pain, urinary frequency or urinary urgency Musc: Denies: neck pain, back pain, extremity pain, joint pain, joint redness, limited range of motion or muscle weakness Skin/Breast: Denies: rash, pruritus, erythema, skin pain or skin tenderness Neuro: Denies: headache(s), numbness in extremities, weakness in extremities, sensory changes, difficulty walking, dizziness, confusion or Slurred speech present Psych: Reports: depression; Denies: suicidal ideation Endo: Denies: polyuria All/Imm: Denies: urticaria, throat swelling or tongue swelling PFSH ED PFSH: Medical History CAD (coronary artery disease) Cervical disc disorder with myelopathy of mid-cervical region Chronic kidney disease, stage III (moderate) COPD (chronic obstructive pulmonary disease) Coronary artery calcification Degenerative joint disease of left shoulder Diabetes mellitus Frequent UTI Hepatitis C with some early cirrhosis. HCC ruled out. History of DVT (deep vein thrombosis) (~12/2018) Lumbar disc disease with radiculopathy Myoclonus dystonia Obesity (BMI 30.0-34.9) Peripheral vascular disease Tobacco abuse Surgical History Above-knee amputation of left lower extremity H/O hernia repair History of femoropopliteal bypass S/P AKA (above knee amputation) unilateral left Family History Father Diabetes Brother Diabetes Grandmother Diabetes Mother COPD (chronic obstructive pulmonary disease) Father No problems noted. 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 Pets and animals: No History of recent travel: No Current gender identity: Male Physical Exam Const: COMMON NORMALS: no acute distress, average body habitus, patient oriented x3, no limitations, healthy appearing, alert and well nourished GENERAL APPEARANCE: cooperative, comfortable, well kempt and well developed ORIENTATION/CONSCIOUSNESS: Yes awake, Yes oriented to person, Yes oriented to place and Yes oriented to time HENMT: COMMON NORMALS: normocephalic, external ears normal and Normal external nose present HEAD & SCALP: normal to inspection and normocephalic NOSE: Normal external nose present EXTERNAL EAR: Yes external ears normal MOUTH: Normal oral and palatal mucosa present THROAT: posterior oropharynx normal Eye: COMMON NORMALS: Equal, round and reactive pupils present and EOMs intact bilaterally GENERAL EYE: appearance normal, both eyes and all related structures PUPIL: Yes Equal, round and reactive pupils present Neck/C-Spine: COMMON NORMALS: full ROM, no lymphadenopathy, no meningeal signs and no JVD GENERAL: Yes normal visual inspection Lymph: LYMPHATIC: no lymphadenopathy noted Chest: COMMONS NORMALS: normal inspection of the chest and normal palpation of entire chest wall Resp: COMMON NORMALS: normal respiratory effort, No retractions, No use of accessory muscles, clear to auscultation bilaterally and percussion normal EFFORT & INSPECTION: Yes able to speak in complete sentences AUSCULTATION: clear to auscultation bilaterally PERCUSSION: percussion normal Cardio: COMMON NORMALS: no JVD, regular rate, regular rhythm, S1 normal heart sound present, S2 normal heart sound present and Peripheral pulses 2+ throughout RATE: regular rate RHYTHM: regular rhythm HEART SOUNDS: S1 normal heart sound present and S2 normal heart sound present PERIPHERAL PULSES: Peripheral pulses 2+ throughout GI: COMMON NORMALS: Normal to inspection, nondistended, normoactive bowel sounds present, Soft to palpation, non-tender and no masses INSPECTION: Yes normal to inspection PALPATION: Yes Soft to palpation : COMMON NORMALS: Yes no CVA tenderness BLADDER/KIDNEY EXAM: Yes no CVA tenderness Back/Pelvis: COMMON NORMALS: no CVA tenderness, thoracic and lumbar spine normal to inspection, no thoracic nor lumbar tenderness and thoraco-lumbar ROM normal Extremity: COMMON NORMALS: normal to inspection, full ROM, capillary refill normal, no joint enlargement and no pedal edema NARRATIVE EXTREMITY EXAM: Chronic left [id number] amputation. GENERAL: Yes normal exam except as noted Neuro: COMMON NORMALS: patient oriented x3, CN's II-XII intact bilaterally, moves all extremities, no focal motor deficits, no sensory deficits noted and gait normal SENSORIUM/ORIENTATION: Yes alert, Yes oriented to person, Yes oriented to place and Yes oriented to time MENINGEAL SIGNS: Yes no meningeal signs Psych: COMMON NORMALS: mental status grossly normal, Normal thought process present, cooperative, normal affect and speech normal APPEARANCE: Yes well kempt ATTITUDE: Yes calm SPEECH: Yes normal speech THOUGHT PROCESS: Normal thought process present Skin: COMMON NORMALS: no rashes or lesions noted GENERAL SKIN EXAM: no rashes or lesions noted Course Vital Signs: Vital signs: Vital Signs Temperature 98.6 F 04/15/21 21:15 Pulse Rate 79 04/15/21 21:15 Respiratory Rate 16 04/15/21 21:15 Blood Pressure 157/79 04/15/21 21:15 Pulse Oximetry 92 04/15/21 21:15 MDM - Psych MDM Narrative: Medical decision making narrative: The patient comes in for depression. He is asking for admission. Denies suicidal ideations. Discussed with Dr. Myers the patient's case and he has not on any SSRIs and has not been admitted before. There are low sentences and can accept him for admission. Lab Data: Labs: Lab Results 04/15/21 04/15/21 04/15/21 Range/Units 19:38 19:38 19:38 WBC 6.8 (4.0-10.0) 10^3/ uL RBC 4.72 (4.1-5.3) 10^6/u L Hgb 14.8 (11.7-16.6) g/dL Hct 43.4 (42.0-52.0) % MCV 91.9 (80-94) fL MCH 31.4 (28.0-34.0) pg MCHC 34.1 (30.0-36.0) g/dL RDW 13.8 (12.1-15.1) % Plt Count 89 L (130-400) 10^3/c mm MPV 10.1 (7.4-10.4) fL Neut % (Auto) 59.2 % Lymph % (Auto) 29.8 % Tripp % (Auto) 7.2 % Eos % (Auto) 3.4 % Baso % (Auto) 0.3 % Neut # (Auto) 4.03 (1.8-7.7) 10^3/u L Lymph # (Auto) 2.0 (0.8-4.8) 10^3/u L Tripp # (Auto) 0.5 (0.2-0.9) 10^3/u L Eos # (Auto) 0.2 (0.0-0.8) 10^3/u L Baso # (Auto) 0.0 (0.0-0.1) 10^3/u L Nucleated RBC % (a uto) 0 % Nucleated RBCs # 0.0 /100WBC Sodium 145 (136-145) mmol/L Potassium 4.1 (3.5-5.1) mmol/L Chloride 107 (98-107) mmol/L Carbon Dioxide 25 (22-29) mmol/L Anion Gap 17.1 (5-19) BUN 22 (8-23) mg/dL Creatinine 1.7 H (0.7-1.2) mg/dL GFR Calculation 40.9 L (90-130) mL/min Glucose 100 (65-115) mg/dL Calculated Osmolal ity 303 H (285-295) mOsm/k g Calcium 9.3 (8.5-10.5) mg/dL Total Bilirubin 0.7 (0.15-1.2) mg/dL AST 24 (0-40) U/L ALT 19 (0-41) U/L Alkaline Phosphata se 40 (40-130) IU/L Troponin T Gen 5 n g/L 31 H (0-15) ng/L Total Protein 7.4 (6.6-8.7) g/dL Albumin 4.4 (3.5-5.2) g/dL Globulin 3.0 (1.3-4.6) g/dL Urine Color (Yellow) Urine Appearance (CLEAR) Urine pH (5-7) Ur Specific Gravit y (1.005-1.030) Urine Protein (Negative) Urine Glucose (UA) (Normal) Urine Ketones (Negative) Urine Blood (Negative) Urine Nitrate (Negative) Urine Bilirubin (Negative) Urine Urobilinogen (Negative) mg/dL Ur Leukocyte Leonila ase (Negative) Salicylates < 0.3 L (3-10) mg/dL Urine Opiates Scre en (Negative) ng/mL Acetaminophen < 5.0 L (10-30) ug/mL Ur Barbiturates Sc reen (Negative) ng/mL Ur Phencyclidine S crn (Negative) ng/mL Ur Amphetamines Sc reen (Negative) ng/mL U Benzodiazepines Scrn (Negative) ng/mL Urine Cocaine Scre en (Negative) ng/mL U Marijuana (THC) Screen (Negative) ng/mL 04/15/21 04/15/21 Range/Units 19:38 19:38 WBC (4.0-10.0) 10^3/ uL RBC (4.1-5.3) 10^6/u L Hgb (11.7-16.6) g/dL Hct (42.0-52.0) % MCV (80-94) fL MCH (28.0-34.0) pg MCHC (30.0-36.0) g/dL RDW (12.1-15.1) % Plt Count (130-400) 10^3/c mm MPV (7.4-10.4) fL Neut % (Auto) % Lymph % (Auto) % Tripp % (Auto) % Eos % (Auto) % Baso % (Auto) % Neut # (Auto) (1.8-7.7) 10^3/u L Lymph # (Auto) (0.8-4.8) 10^3/u L Tripp # (Auto) (0.2-0.9) 10^3/u L Eos # (Auto) (0.0-0.8) 10^3/u L Baso # (Auto) (0.0-0.1) 10^3/u L Nucleated RBC % (a uto) % Nucleated RBCs # /100WBC Sodium (136-145) mmol/L Potassium (3.5-5.1) mmol/L Chloride (98-107) mmol/L Carbon Dioxide (22-29) mmol/L Anion Gap (5-19) BUN (8-23) mg/dL Creatinine (0.7-1.2) mg/dL GFR Calculation (90-130) mL/min Glucose (65-115) mg/dL Calculated Osmolal ity (285-295) mOsm/k g Calcium (8.5-10.5) mg/dL Total Bilirubin (0.15-1.2) mg/dL AST (0-40) U/L ALT (0-41) U/L Alkaline Phosphata se (40-130) IU/L Troponin T Gen 5 n g/L (0-15) ng/L Total Protein (6.6-8.7) g/dL Albumin (3.5-5.2) g/dL Globulin (1.3-4.6) g/dL Urine Color Yellow (Yellow) Urine Appearance Clear (CLEAR) Urine pH 5 (5-7) Ur Specific Gravit y 1.010 (1.005-1.030) Urine Protein Neg (Negative) Urine Glucose (UA) Norm (Normal) Urine Ketones Negative (Negative) Urine Blood Neg (Negative) Urine Nitrate Negative (Negative) Urine Bilirubin Neg (Negative) Urine Urobilinogen Norm (Negative) mg/dL Ur Leukocyte Leonila ase Negative (Negative) Salicylates (3-10) mg/dL Urine Opiates Scre en Negative (Negative) ng/mL Acetaminophen (10-30) ug/mL Ur Barbiturates Sc reen Negative (Negative) ng/mL Ur Phencyclidine S crn Negative (Negative) ng/mL Ur Amphetamines Sc reen Negative (Negative) ng/mL U Benzodiazepines Scrn Negative (Negative) ng/mL Urine Cocaine Scre en Negative (Negative) ng/mL U Marijuana (THC) Screen Negative (Negative) ng/mL Discharge Plan Discharge Patient Disposition: Admitted As Inpatient Admit Provider: Ami Myers Clinical Impression: Depression Condition: Stable Coding Level of Care Code ED Book Editor for [facility] Bartholomew
[2021-04-15 23:14] VITALS: BP 149/83; PULSE 65; RESP 18; TEMP 36.9; O2SAT 93
[2021-04-16 06:00] VITALS: BP 127/75; PULSE 72; RESP 18; TEMP 36.6; O2SAT 95
[2021-04-16 06:33] LABS: Glucose Point of Care 137 mg/dL (70-110)
[2021-04-16] MEDS: escitalopram 10 mg Tablet 5 MG PO (09:54)
--- NOTE | 2021-04-16 10:08 | PM.NHP ---
Providers/Chief Complaint Admitting Physician: Ami Myers DO Primary Care Provider: Fer Musa DO Chief Complaint: DEPRESSION HPI NPU History of Present Illness Jeffrey Brown is a 65 year old male with no past psychiatric history and multiple medical issues presenting to the emergency department with worsening depressive symptoms over the last several months related to his ongoing medical issues stating that he feels like a burden to other individuals and feels like he has been pushing people away from him. Patient denies any past psychiatric treatment for depression or anxiety and feels like his depressive symptoms are causing significant impairment. Patient currently reports low mood, decreased energy and interest in his usual activities to include interacting with family. Patient reports that his depressive symptoms are exacerbated by his ongoing medical issues to include his difficulty with smoking in the context of having vascular disease and klxye-ozt-qkel amputation as well as chronic kidney disease. He denies any suicidal ideation and states that he has no problems with when he has to but has no active intent or plan of ending his life and has no history of self-harm behavior. Denies past or recent hypomanic or manic episodes. Denies past or recent perceptual disturbances, denies any auditory or visual destinations, denies any delusions. Patient reports stress related anxiety that is transient but denies any sustained anxiety, denies any panic symptoms or panic attacks. Psychiatric review of systems is otherwise negative. Per above, patient denies past treatment by primary care with an antidepressant and denies any history of counseling or therapy. Patient reports living with his girlfriend of 25 years who also has significant medical issues. Review of Systems General: Reports: 10 or more systems reviewed and unremarkable except in HPI and below Meds NPU Home Medications Medication Instructions Recorded Confirmed Last Taken Type Multi-Vitamin HP/Minerals 1 cap PO DAILY@109912/28/19 04/07/21 03/23/21 History atorvastatin 80 mg PO DAILY@199912/28/19 04/07/21 03/22/21 History cholecalciferol (vitamin D3) 2,000 unit PO DAILY@109912/28/19 04/07/21 03/22/21 History ferrous sulfate 325 mg PO DAILY@109912/28/19 04/07/21 03/23/21 History omeprazole 40 mg PO DAILY@109912/28/19 04/15/21 04/14/21 11:00 History metoprolol tartrate 25 mg PO BID@1100,199912/30/19 04/15/21 04/14/21 History senna 8.6 mg PO DAILY PRN 12/30/19 04/15/21 04/14/21 History levetiracetam [Keppra] 500 mg PO BID #60 tab 01/03/20 04/15/21 04/14/21 10:10 Rx losartan 100 mg tablet 50 mg PO DAILY@1100 03/17/20 04/15/21 04/14/21 10:00 History pentoxifylline 400 mg 400 mg PO BID@1100,199903/17/20 04/15/21 04/14/21 11:00 History tablet,extended release aspirin 81 mg PO DAILY@109908/31/20 04/07/21 03/23/21 History ipratropium-albuterol 3 ml INHALATION Q6H PRN #60 ml 09/01/20 04/15/21 04/14/21 10:00 Rx tiotropium 2.5 mcg-olodaterol 2.5 2 puff INHALATION DAILY #4 g 11/25/20 04/15/21 04/14/21 Rx mcg/actuation mist for inhalation Lantus Solostar U-100 Insulin 17 unit SUBCUT DAILY@1700 01/31/21 04/15/21 04/14/21 05:00 History albuterol sulfate 2 puff INHALATION Q4H PRN 01/31/21 04/07/21 03/23/21 History clopidogrel [Plavix] 75 mg PO DAILY@1100 01/31/21 04/07/21 03/23/21 History insulin aspart U-100 [Novolog 10 unit SUBCUT TIDWM 01/31/21 04/15/21 04/14/21 History Flexpen U-100 Insulin] fluticasone propionate 2 spray INTRANASAL DAILY 03/23/21 04/07/21 03/23/21 History furosemide [Lasix] 20 mg PO DAILY #20 tab 03/23/21 04/15/21 04/14/21 10:00 Rx ibuprofen 600 mg PO Q6H PRN 03/23/21 04/15/21 04/14/21 History tamsulosin 0.4 mg PO BID@03/23/21 04/15/21 04/14/21 11:00 History Allergies Allergy/AdvReac Type Severity Reaction Status Date / Time No Known Allergies Allergy Verified 04/15/21 23:18 PFSH NPU PFSH: Medical History CAD (coronary artery disease) Cervical disc disorder with myelopathy of mid-cervical region Chronic kidney disease, stage III (moderate) COPD (chronic obstructive pulmonary disease) Coronary artery calcification Degenerative joint disease of left shoulder Diabetes mellitus Frequent UTI Hepatitis C with some early cirrhosis. HCC ruled out. History of DVT (deep vein thrombosis) (~12/2018) Lumbar disc disease with radiculopathy Myoclonus dystonia Obesity (BMI 30.0-34.9) Peripheral vascular disease Tobacco abuse Surgical History Above-knee amputation of left lower extremity H/O hernia repair History of femoropopliteal bypass S/P AKA (above knee amputation) unilateral left Family History Father Diabetes Brother Diabetes Grandmother Diabetes Mother COPD (chronic obstructive pulmonary disease) Father No problems noted. 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 Pets and animals: No History of recent travel: No Current gender identity: Male Other Psychiatric History: Other Psychiatric History: Denies any history of psychiatric treatment Denies any history of psychiatric hospitalizations Denies any history of suicide attempt or self-harm behavior Mental Status Exam MSE Comments: Appears older than stated age, disheveled, unkempt, wearing hospital scrubs, sitting in a wheelchair, good eye contact, good rapport, polite and interactive Psychomotor activity is somewhat decreased, no agitation Speech is normal rate, low volume, spontaneous, fair articulation, not pressured I feel depressed, congruent affect, not labile Alert and oriented to person, place, time, situation Memory and concentration appear to be intact per interview Intellectual functioning appears to be average based on vocabulary, interview Thought process, linear, no flight of ideas Thought content, no delusions, no hallucinations, no suicidal or homicidal ideation Insight and judgment appear to be intact Vitals/I&O/Wt Last Vital Signs Temp 97.8 F 04/16/21 06:00 Pulse 72 04/16/21 06:00 Resp 18 04/16/21 06:00 BP 127/75 04/16/21 06:00 Pulse Ox 95 04/16/21 06:00 Weight last 48 hrs Weight 127.006 kg Data NPU : 04/15/21 19:38 04/15/21 19:38 A&P Assessment and plan (1) Depression: Status: Acute Qualifiers: Depression Type: unspecified Qualified Code(s): F32.9 - Major depressive disorder, single episode, unspecified Additional A&P Information Patient with ongoing depressive symptoms in the context of multiple ongoing medical stressors, life stressors, passive suicidal thoughts with no past psychiatric history, no history of suicide attempts or self-harm behavior and no past treatment. Patient would benefit from medication stabilization as well as coordination for post discharge mental health care follow-up including therapy targeting more adaptive coping strategies. VOLUNTARY ADMIT to inpatient psychiatry START Lexapro 5 mg daily with plan to titrate up for effect Encouraged patient to participate in unit activities to include group sessions, unit milieu Coordinate with social sciences research scientist for post discharge mental health care follow-up Involuntary Hold Information 96 Hour Hold: 96 Hour Involuntary Admission: No Attestations NPU Medical Necessity Statement*: Psychiatric hospitalization is indicated for medication stabilization, coordination for safe discharge Anticipate hospital stay to exceed 2 midnights Time Spent in Patient Care: Greater than 35 minutes (>than 50% of time spent in counselling and/or direct pt care on unit). Coding Level of Care Code Acute Distribution Engineering Technologist for [facility] Bartholomew Diagnoses Depression F32.9 Depression Type: unspecified
[2021-04-16] MEDS: metoprolol tartrate 25 mg Tablet PO ×2 (10:50→20:03)
[2021-04-16] MEDS: ferrous sulfate EC 325 mg Tablet PO (10:50)
[2021-04-16] MEDS: clopidogrel 75 mg Tablet PO (10:50)
[2021-04-16] MEDS: tamsulosin 0.4 mg Capsule PO ×2 (10:51→20:03)
[2021-04-16 11:21] LABS: Glucose Point of Care 156 mg/dL (70-110)
[2021-04-16] MEDS: albuterol 8 gm MDI 2 PUFF INHALATION (11:39)
[2021-04-16 11:40] VITALS: PULSE 69; RESP 17; O2SAT 95
[2021-04-16 11:42] VITALS: PULSE 70
[2021-04-16 14:00] VITALS: BP 127/75; PULSE 70; RESP 17; TEMP 36.6; O2SAT 95
[2021-04-16 16:40] LABS: Glucose Point of Care 126 mg/dL (70-110)
[2021-04-16] MEDS: levETIRAcetam 500 mg Tablet PO (17:06)
[2021-04-16 18:50] VITALS: BP 118/52; PULSE 66; RESP 18; TEMP 37; O2SAT 93
[2021-04-16 21:03] LABS: Glucose Point of Care 132 mg/dL (70-110)
[2021-04-16 21:20] VITALS: BP 146/88; PULSE 73; RESP 18; TEMP 36.9; O2SAT 94
[2021-04-16] MEDS: trazodone 50 mg Tablet PO (21:42)
--- NOTE | 2021-04-16 23:59 | PC.NURSE ---
PRN 2142 Administered Trazadone 50mg for a sleeping aid, will continue to monitor pt until end of shift. 2213 follow up on pt, pt sleeping in bed
[2021-04-17 06:00] VITALS: BP 169/75; PULSE 67; RESP 18; TEMP 37.2; O2SAT 95
[2021-04-17] MEDS: albuterol 8 gm MDI 2 PUFF INHALATION (08:09)
[2021-04-17 08:10] VITALS: PULSE 83; RESP 17; O2SAT 96
[2021-04-17 08:12] VITALS: PULSE 84
[2021-04-17] MEDS: pantoprazole DR 40 mg Tablet PO (08:44)
[2021-04-17] MEDS: escitalopram 10 mg Tablet 5 MG PO (08:44)
[2021-04-17] MEDS: clopidogrel 75 mg Tablet PO (08:44)
[2021-04-17] MEDS: ferrous sulfate EC 325 mg Tablet PO (08:44)
[2021-04-17] MEDS: levETIRAcetam 500 mg Tablet PO ×2 (08:44→19:47)
[2021-04-17] MEDS: FUROsemide 20 mg Tablet PO (08:44)
[2021-04-17] MEDS: aspirin 81 mg Chew Tablet PO (08:44)
[2021-04-17] MEDS: tamsulosin 0.4 mg Capsule PO ×2 (08:45→19:47)
[2021-04-17] MEDS: metoprolol tartrate 25 mg Tablet PO ×2 (08:45→19:48)
--- NOTE | 2021-04-17 12:42 | P.PN_ITS ---
Subjective NPU Subjective: Interval history: Continues to report intermittent stress related anxiety and depressed mood, denies any sustained symptoms Denies any interval suicidal ideation and continues to report that he would not take his life because of his family Reports being compliant with his medication, denies any medication side effects Reports that his sleep was fair to good Reports that his appetite has been fair Mental Status Exam MSE Comments: Sitting his wheelchair in the day room, appropriately groomed and dressed, calm, cooperative, good eye contact Psychomotor activity is neither increased nor decreased, no agitation Speech is normal rate, normal volume, spontaneous, fair articulation, not pressured I feel better, congruent affect, not labile Alert and oriented to person, place, time, situation Memory and concentration appear to be intact per interview Thought process, linear, no flight of ideas Thought content, no delusions, no hallucinations, no suicidal or homicidal ideation Insight and judgment appear to be intact Vitals/I&O/Wt Last Vital Signs Temp 98.9 F 04/17/21 06:00 Pulse 84 04/17/21 08:12 Resp 17 04/17/21 08:10 BP 169/75 04/17/21 06:00 Pulse Ox 96 04/17/21 08:10 Weight last 48 hrs Weight 127.006 kg Data NPU : 04/15/21 19:38 04/15/21 19:38 A&P Assessment and plan (1) Depression: Status: Acute Qualifiers: Depression Type: unspecified Qualified Code(s): F32.9 - Major depressive disorder, single episode, unspecified Additional A&P Information Improving mood continues reports some exacerbation thinking about life stressors CONTINUE current medication, continue to monitor Involuntary Hold Information 96 Hour Hold: 96 Hour Involuntary Admission: No Attestations NPU Medical Necessity Statement*: Continues to require psychiatric hospitalization for medication stabilization, coordination for safe discharge Coding Level of Care Code Acute Director Apparel for [facility] Diagnoses Depression F32.9 Depression Type: unspecified
[2021-04-17 14:00] VITALS: BP 161/72; PULSE 62; RESP 17; TEMP 36.3; O2SAT 94
[2021-04-17 19:58] LABS: Glucose Point of Care 135 mg/dL (70-110)
[2021-04-17 19:59] VITALS: BP 151/95; PULSE 85; RESP 16; TEMP 36.6; O2SAT 95
[2021-04-17] MEDS: trazodone 50 mg Tablet PO (21:47)
[2021-04-18 06:00] VITALS: BP 148/74; PULSE 67; RESP 18; TEMP 36.8; O2SAT 98
[2021-04-18 06:34] LABS: Glucose Point of Care 121 mg/dL (70-110)
[2021-04-18] MEDS: FUROsemide 20 mg Tablet PO (07:45)
[2021-04-18] MEDS: aspirin 81 mg Chew Tablet PO (07:45)
[2021-04-18] MEDS: pantoprazole DR 40 mg Tablet PO (07:45)
[2021-04-18] MEDS: levETIRAcetam 500 mg Tablet PO (07:45)
[2021-04-18] MEDS: escitalopram 10 mg Tablet 5 MG PO (07:46)
[2021-04-18 08:59] VITALS: BP 148/74; PULSE 67; RESP 18; TEMP 36.8; O2SAT 98
[2021-04-18 09:11] VITALS: PULSE 63; RESP 18; O2SAT 92
--- NOTE | 2021-04-18 09:36 | P.DS_ITS ---
Diagnoses at Discharge Discharge Diagnosis (1) Depression: Status: Acute Qualifiers: Depression Type: unspecified Qualified Code(s): F32.9 - Major depressive disorder, single episode, unspecified Reason for Visit Reason for Visit: DEPRESSION Hospital Course Hospital Course 65 year old male with no past psychiatric history and multiple medical issues presenting to the emergency department with worsening depressive symptoms over the last several months related to his ongoing medical issues stating that he feels like a burden to other individuals and feels like he has been pushing people away from him. Patient denies any past psychiatric treatment for depression or anxiety and feels like his depressive symptoms are causing significant impairment. Patient continued to report depressive symptoms which appear to be in the context of ongoing stressors of chronic medical issues and family dynamics and was started on a low-dose of Lexapro 5 mg daily which she tolerated well with no reports of any medication side effects. Patient participated in unit milieu with no reports of any behavioral disturbances. Patient clarified that at no time is he ever had any thoughts of ending his life but states that he has been frustrated with his ongoing chronic medical issues as well as family dynamics in which he feels like he is a burden. Patient cites multiple reasons for not wanting to end his life to include family. Patient was not suicidal and did not appear to pose an imminent threat of harm to self or others at the time of discharge. Low to moderate risk of harm to self given no current suicidal ideation and no current endorsement of depressive symptoms although patient's perception of lack of control of his ongoing medical issues and feeling like a burden to his family may continue to elevate his risk if he is noncompliant with medication and recommended follow-up leading to unexpected, impulsive behavior. Risk mitigation included psychiatric hospitalization, medication stabilization, coordination for post discharge follow-up for medication management and counseling targeting the development of more adaptive coping strategies for his ongoing family and medical stressors. Patient was able to communicate his understanding of the need to be compliant with his medication, medication management and counseling follow-up in order to further mitigate his risk of harm to self. Involuntary Hold Information 96 Hour Hold: 96 Hour Involuntary Admission: No Mental Status Exam MSE Comments: Lying in bed, tired appearing, polite, calm, interactive, good eye contact Psychomotor activity is neither increased nor decreased, no agitation Speech is normal rate, normal volume, spontaneous, fair articulation, not pressured Good, congruent affect, not labile Alert and oriented to person, place, time, situation Memory and concentration appear to be intact per interview Thought process, linear, no flight of ideas Thought content, no delusions, no hallucinations, no suicidal or homicidal ideation Insight and judgment appear to be intact Discharge Data Data Completed and Pending: Labs from last 24 hours 04/18/21 04/17/21 06:26 19:53 POC Glucose 121 H 135 H Vitals: Last Vital Signs Temp 98.3 F 04/18/21 08:59 Pulse 63 04/18/21 09:11 Resp 18 04/18/21 09:11 BP 148/74 04/18/21 08:59 Pulse Ox 92 04/18/21 09:11 Discharge Plan Discharge Patient Disposition: Home Condition: Stable Prescriptions: New escitalopram oxalate 10 mg Tablet 5 mg PO DAILY Qty: 30 RF: 0 Continued Stiolto Respimat 2.5-2.5 mcg/actuation mist 2 puff inhalation DAILY Qty: 4 RF: 3 atorvastatin 80 mg Tablet 80 mg PO DAILY@1999 RF: 0 ferrous sulfate 325 mg (65 mg iron) Tablet 325 mg PO DAILY@1099 RF: 0 omeprazole 20 mg Capsule,Delayed Release(Dr/Ec) 40 mg PO DAILY@1099 RF: 0 Multi-Vitamin HP/Minerals Capsule 1 cap PO DAILY@1099 RF: 0 cholecalciferol (vitamin D3) 2,000 unit Tablet 2,000 unit PO DAILY@1099 RF: 0 losartan 100 mg tablet 50 mg PO DAILY@1099 RF: 0 pentoxifylline 400 mg tablet extended release 400 mg PO BID@ RF: 0 senna 8.6 mg Capsule 8.6 mg PO DAILY PRN (Reason: Constipation) RF: 0 metoprolol tartrate 50 mg tablet 25 mg PO BID@ RF: 0 levetiracetam [Keppra] 500 mg tablet 500 mg PO BID Qty: 60 RF: 0 aspirin 81 mg Tablet,Chewable 81 mg PO DAILY RF: 0 ipratropium-albuterol 0.5 mg-3 mg(2.5 mg base)/3 mL Solution For Nebulization 3 ml inhalation Q6H PRN (Reason: Shortness Of Breath) Qty: 60 RF: 0 Lantus Solostar U-100 Insulin 100 unit/mL (3 mL) insulin pen 17 unit SUBCUT DAILY@1700 RF: 0 clopidogrel [Plavix] 75 mg Tablet 75 mg PO DAILY@1100 RF: 0 albuterol sulfate 90 mcg/actuation Hfa Aerosol Inhaler 2 puff INHALATION Q4H PRN (Reason: Shortness Of Breath) RF: 0 insulin aspart U-100 [Novolog Flexpen U-100 Insulin] 100 unit/mL (3 mL) Insulin Pen 10 unit SUBCUT TIDWM RF: 0 ibuprofen 200 mg Tablet 600 mg PO Q6H PRN (Reason: Pain) RF: 0 tamsulosin 0.4 mg capsule 0.4 mg PO BID@1100,2000 RF: 0 fluticasone propionate 50 mcg/actuation [place],Suspension 2 spray INTRANASAL DAILY RF: 0 furosemide [Lasix] 20 mg tablet 20 mg PO DAILY Qty: 20 RF: 0 Discharge Orders: Discharge Order (Routine); Ordered 04/18/21 Ordered By: Ami Myers Referrals: [facility] [place] [facility] [Outside] (Walk In between 7:30 AM and 3:00 PM) Discharge Diet: Diabetic Discharge Activity: Resume usual activity Patient Instructions: Escitalopram (By mouth), Anxiety (DC), Opioid Safety Discharge Attestations NPU Time Spent in Discharge Care*: greater than 30 min Status at Discharge: Cognitive status at discharge: cognitively intact , Behavioral status at discharge: cooperative , Functional status at discharge: independent ambulation Overall status at discharge: patient is back to baseline Coding Level of Care Code Acute Chg FW DC note Diagnoses Depression F32.9 Depression Type: unspecified
[2021-04-18] MEDS: tamsulosin 0.4 mg Capsule PO (10:06)
[2021-04-18] MEDS: clopidogrel 75 mg Tablet PO (10:06)
[2021-04-18] MEDS: ferrous sulfate EC 325 mg Tablet PO (10:06)
[2021-04-18] MEDS: metoprolol tartrate 25 mg Tablet PO (10:06)
[2021-04-18 11:02] LABS: Glucose Point of Care 129 mg/dL (70-110)
== END 2021-04-18 12:25 | disposition home or self-care (01) | DRG 881 ==
LOC: ER 21:30 → NP 21:54
PROVIDERS: Admitting Provider Psychiatry & Neurology Psychiatry; Emergency Provider Family Medicine; PCP Emergency Medicine Emergency Medical Services; Visit Provider Psychiatry & Neurology Psychiatry
DX: F32.9 Major depressive disorder, single episode, unspecified (principal); I25.10 Atherosclerotic heart disease of native coronary artery without angina pectoris; E11.22 Type 2 diabetes mellitus with diabetic chronic kidney disease; N18.30 Chronic kidney disease, stage 3 unspecified; E11.51 Type 2 diabetes mellitus with diabetic peripheral angiopathy without gangrene; E66.9 Obesity, unspecified; Z68.39 Body mass index [BMI] 39.0-39.9, adult; Z79.4 Long term (current) use of insulin; Z89.612 Acquired absence of left leg above knee; Z83.3 Family history of diabetes mellitus; Z87.891 Personal history of nicotine dependence; Z86.718 Personal history of other venous thrombosis and embolism; Z79.02 Long term (current) use of antithrombotics/antiplatelets
CPT/HCPCS: 36416; 80053; 80306; 80307; 81003; 82962; 84484; 85025; 93005; 94640; 99285; J3535

== ENCOUNTER → 2021-05-17 12:58 | Outpatient (BNVA) | payer OTHER, MEDICARE, SELFPAY | PROVIDERS: PCP Emergency Medicine Emergency Medical Services; Visit Provider Nurse Practitioner Family | DX: B18.2 Chronic viral hepatitis C (principal) | CPT/HCPCS: 87522 ==

== ENCOUNTER 2021-07-29 08:42 | Outpatient (CLI) | payer OTHER, SELFPAY ==
--- NOTE | 2021-07-29 08:00 | US_ITS ---
WS: [id number] RIGHT UPPER QUADRANT ULTRASOUND HISTORY: Alcoholic cirrhosis COMPARISON: None available. Liver: 20.2 cm in length. Moderately enlarged liver. No mass or bile duct dilatation. Gallbladder: Normally distended with a stone in the neck of the gallbladder. No pericholecystic fluid . CBD: 0.5 cm Pancreas: Normal size and echogenicity. Right kidney: 9.8 cm in length. Normal size and echogenicity. No hydronephrosis or mass. Aorta and IVC: Unremarkable abdominal aorta and IVC. No ascites. US/US liver [id number] IMPRESSION: 1. Moderate hepatomegaly. No hepatic mass. 2. Cholelithiasis without acute cholecystitis.
== END 2021-07-29 08:43 | disposition home or self-care (01) ==
LOC: RAD 08:46
PROVIDERS: PCP Emergency Medicine Emergency Medical Services; Visit Provider Nurse Practitioner Family
DX: K70.30 Alcoholic cirrhosis of liver without ascites (principal); R16.0 Hepatomegaly, not elsewhere classified; K80.20 Calculus of gallbladder without cholecystitis without obstruction
CPT/HCPCS: 76705

== ENCOUNTER 2021-10-21 12:11 | Inpatient (IN) | payer OTHER, SELFPAY ==
[2021-10-21] VITALS (7 sets, daily range): BP systolic 168–185; BP diastolic 72–77; PULSE 65–87; RESP 16–20; TEMP 36.5–36.6; O2SAT 95–97; BMI 33.5; BMI 33.9
--- NOTE | 2021-10-21 12:17 | ED_ITS ---
HPI - SOB/Dyspnea General: Chief Complaint: Shortness of Breath/Dyspnea Stated Complaint: SOB/ GENERALIZED WEAKNESS Time Seen by Provider: 10/21/21 12:17 History of Present Illness: HPI Narrative: Mr. Brown is a 66-year-old gentleman with complex past medical history including hypertension, hyperlipidemia, diabetes, stroke, CKD, CAD, hep C, COPD who presents to the emergency department due to shortness of breath. Symptom onset has been gradual over the past 3 days. He denies other associated symptoms but does have moderate to severe intensity and worsening. He has tried home albuterol inhalers without significant relief. EMS did give him a nebulizer treatment which did provide mild relief. No infectious symptoms. No other specific changes in health, exacerbating, or alleviating factors identified. Does not wear oxygen at home. Review of Systems General: Reports: 10 or more systems reviewed and unremarkable except in HPI and below [facility] ED PFSH: Medical History (Updated 10/25/21 @ 00:01 by ) Aortic regurgitation Benign prostatic hyperplasia CAD (coronary artery disease) Cervical disc disorder with myelopathy of mid-cervical region Chronic kidney disease, stage III (moderate) Claustrophobia COPD (chronic obstructive pulmonary disease) COPD (chronic obstructive pulmonary disease) Coronary artery calcification CVA (cerebral vascular accident) (~01/2021) clinical diagnosis with dysarthria and confusion, unremarkable work up but unable to perform MRI due to severe claustrophobia Degenerative joint disease of left shoulder Degenerative lumbar disc Depression hospitalization 04/2021 Diabetes mellitus Facet arthropathy, lumbar Frequent UTI Hepatitis C virus infection resolved after antiviral drug therapy some early cirrhosis, HCC ruled out History of DVT (deep vein thrombosis) (~12/2018) History of PFTs (~01/2021) moderate obstructive ventilatory defect, significant response to bronchodilators. Lung volumes suggestive of mild air trapping. Mild reduction in gas transfer. Hypertension Lumbar disc disease with radiculopathy Mitral regurgitation Myoclonus dystonia Obesity (BMI 30.0-34.9) Peripheral vascular disease Thrombocytopenia 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 C and splenomegaly Tobacco abuse Surgical History (Updated 10/22/21 @ 03:22 by Chanel Johnson MD) H/O hernia repair History of femoropopliteal bypass History of PTCA x2 S/P AKA (above knee amputation) unilateral left S/P peripheral artery angioplasty with stent placement bilateral common iliac, multiple in LLE with chronically occluded left SFA Family History Father Diabetes Brother Diabetes Grandmother Diabetes Mother COPD (chronic obstructive pulmonary disease) Father No problems noted. 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 Mild increased work of breathing Eyes - PERRL, no conjunctival injection ENMT - Atraumatic external nose and ears. Moist mucous membranes NECK - supple. trachea midline CARDIOVASCULAR - regular rate and rhythm. Peripheral pulses 2+ and equal RESPIRATORY -diminished to auscultation bilaterally. Mild increased work of breathing. ABDOMEN/GI - Nontender/Nondistended. No tenderness to percussion or evidence of peritonitis MSK - Extremities without obvious deformity or tenderness to palpation. Left lower extremity prosthesis SKIN - Warm, Dry NEURO - alert and appropriately oriented. No focal neurologic deficits or acute alteration consciousness. Course ED course: - Patient was seen and evaluated by me at bedside - Patient placed on cardiac monitors, IV access obtained - Initial evaluation notable for as noted above - additional RT and symptom treatments ordered - Labs notable for no leukocytosis, covid negative. BNP elevated - Imaging notable for Bibasal pulmonary infiltrate suspicious for pneumonia. antibiotic given - Upon serial reexamination after treatment the patient was minimally improved - Based on patient history, evaluation, labs, and imaging as interpreted the most likely cause of the patient's condition is pneumonia and volume overload w ith new oxygen requirement - The results of ED evaluation were discussed with the patient including plan for admission due to requirement for level of care not available if discharged to prevent significant worsening/deterioration. - Hospitalist service contacted and agreed to admit the patient - Patient was admitted without further deterioration or significant events. Vital Signs: Vital signs: Vital Signs Temperature 98.1 F 10/24/21 16:06 Pulse Rate 65 10/24/21 16:06 Respiratory Rate 18 10/24/21 16:06 Blood Pressure 105/67 10/24/21 16:06 Pulse Oximetry 94 10/24/21 16:06 MDM - SOB/Dyspnea Medical Records: Attestation: I reviewed the patient's medical records. Lab Data: Attestation: I reviewed the patient's lab results. Labs: Lab Results 10/21/21 10/21/21 10/21/21 12:10 13:04 14:20 WBC 7.0 10^3/uL 10^3/ uL (4.0-10.0) RBC 4.54 10^6/uL 10^6 /uL (4.1-5.3) Hgb 13.8 g/dL g/dL (11.7-16.6) Hct 44.2 % % (42.0-52.0) MCV 97.4 fl H fl (80-94) MCH 30.4 pg pg (28.0-34.0) MCHC 31.2 g/dL g/dL (30.0-36.0) RDW 14.6 % % (12.1-15.1) Plt Count 62 10^3/cmm L 10^ 3/cmm (130-400) MPV 10.8 fL H fL (7.4-10.4) Neut % (Auto) 64.6 % % Lymph % (Auto) 23.9 % % [place] % (Auto) 6.4 % % Eos % (Auto) 4.4 % % Baso % (Auto) 0.4 % % Neut # (Auto) 4.53 10^3/uL 10^3 /uL (1.8-7.7) Lymph # (Auto) 1.7 10^3/uL 10^3/ uL (0.8-4.8) [place] # (Auto) 0.5 10^3/uL 10^3/ uL (0.2-0.9) Eos # (Auto) 0.3 10^3/uL 10^3/ uL (0.0-0.8) Baso # (Auto) 0.0 10^3/uL 10^3/ uL (0.0-0.1) Nucleated RBC % (a uto) 0 % % Nucleated RBCs # 0.0 /100WBC /100W BC D-Dimer Specimen Type Arterial Sample Site Radial, left ABG pH 7.42 (7.35-7.45) ABG pCO2 35.7 mmHg mmHg (35-45) ABG pO2 85.2 mmHg mmHg (80.0-100.0) ABG HCO3 23.0 mmol/L mmol/ L (22-26) ABG Base Excess -1.1 mmol/L mmol/ L (-2.0-2.0) Mich Test Pos Hematocrit 40.2 % L % (42-52) Hgb O2 Saturation 95.3 % % (95-100) Carboxyhemoglobin 1.5 %THgb %THgb (0.4-20.1) Methemoglobin 0.5 % % (0.4-1.5) Total Hemoglobin 13.1 g/dL L g/dL (14-18) O2 Delivery Device Nc O2 Liters/Min 2.0 % % FiO2 28.0 % % Childcare Worker ID [place] Sodium Potassium Chloride Carbon Dioxide Anion Gap BUN Creatinine GFR Calculation Glucose POC Glucose Calculated Osmolal ity Calcium Total Bilirubin AST ALT Alkaline Phosphata se Troponin T Baselin e Troponin T 120 Min [place] Delta Troponin T Troponin T Hi Sens 6Hr Troponin T Hi Sens 6Hr Delta C-Reactive Protein NT-Pro-B Natriuret Pep Total Protein Albumin Globulin Procalcitonin SARS-CoV-2 RNA (RT -PCR) SARS-CoV-2 Ag (Rap id) Negative (Negative) 10/21/21 10/21/21 10/21/21 14:20 14:20 16:12 WBC RBC Hgb Hct MCV MCH MCHC RDW Plt Count MPV Neut % (Auto) Lymph % (Auto) [place] % (Auto) Eos % (Auto) Baso % (Auto) Neut # (Auto) Lymph # (Auto) [place] # (Auto) Eos # (Auto) Baso # (Auto) Nucleated RBC % (a uto) Nucleated RBCs # D-Dimer Specimen Type Sample Site ABG pH ABG pCO2 ABG pO2 ABG HCO3 ABG Base Excess Mich Test Hematocrit Hgb O2 Saturation Carboxyhemoglobin Methemoglobin Total Hemoglobin O2 Delivery Device O2 Liters/Min FiO2 Childcare Worker ID Sodium 139 mmol/L mmol/L (136-145) Potassium 4.3 mmol/L mmol/L (3.5-5.1) Chloride 105 mmol/L mmol/L (98-107) Carbon Dioxide 17 mmol/L L mmol/ L (22-29) Anion Gap 21.3 H (5-19) BUN 21 mg/dL mg/dL (8-23) Creatinine 1.6 mg/dL H mg/dL (0.7-1.2) GFR Calculation 43.7 mL/min L mL/ min (90-130) Glucose 115 mg/dL mg/dL (65-115) POC Glucose Calculated Osmolal ity 292 mOsm/kg mOsm/ kg (285-295) Calcium 8.3 mg/dL L mg/dL (8.5-10.5) Total Bilirubin 0.9 mg/dL mg/dL (0.15-1.2) AST 19 U/L U/L (0-40) ALT 13 U/L U/L (0-41) Alkaline Phosphata se 41 IU/L IU/L (40-130) Troponin T Baselin e 26 ng/L H ng/L (0-15) Troponin T 120 Min [place] 30.67 ng/L H ng/L (0-15) Delta Troponin T 4.67 ABS# ABS# (0-10) Troponin T Hi Sens 6Hr Troponin T Hi Sens 6Hr Delta C-Reactive Protein 3.8 mg/L mg/L (0.0-4.9) NT-Pro-B Natriuret Pep 1328 pg/mL H pg/m L (0-125) Total Protein 6.4 g/dL L g/dL (6.6-8.7) Albumin 3.9 g/dL g/dL (3.5-5.2) Globulin 2.5 g/dL g/dL (1.3-4.6) Procalcitonin 0.04 ng/mL ng/mL (0-0.5) SARS-CoV-2 RNA (RT -PCR) SARS-CoV-2 Ag (Rap id) 10/21/21 10/21/21 10/21/21 18:55 19:55 21:20 WBC RBC Hgb Hct MCV MCH MCHC RDW Plt Count MPV Neut % (Auto) Lymph % (Auto) [place] % (Auto) Eos % (Auto) Baso % (Auto) Neut # (Auto) Lymph # (Auto) [place] # (Auto) Eos # (Auto) Baso # (Auto) Nucleated RBC % (a uto) Nucleated RBCs # D-Dimer Specimen Type Sample Site ABG pH ABG pCO2 ABG pO2 ABG HCO3 ABG Base Excess Mich Test Hematocrit Hgb O2 Saturation Carboxyhemoglobin Methemoglobin Total Hemoglobin O2 Delivery Device O2 Liters/Min FiO2 Childcare Worker ID Sodium Potassium Chloride Carbon Dioxide Anion Gap BUN Creatinine GFR Calculation Glucose POC Glucose 331 mg/dL H mg/dL (70-110) Calculated Osmolal ity Calcium Total Bilirubin AST ALT Alkaline Phosphata se Troponin T Baselin e Troponin T 120 Min [place] Delta Troponin T Troponin T Hi Sens 6Hr 23.16 ng/L H ng/L (0-15) Troponin T Hi Sens 6Hr Delta -2.84 ng/L L ng/L (0-12) C-Reactive Protein NT-Pro-B Natriuret Pep Total Protein Albumin Globulin Procalcitonin SARS-CoV-2 RNA (RT -PCR) Not detected (NOT DETECTED) SARS-CoV-2 Ag (Rap id) 10/22/21 10/22/21 10/22/21 06:21 06:40 11:28 WBC RBC Hgb Hct MCV MCH MCHC RDW Plt Count MPV Neut % (Auto) Lymph % (Auto) [place] % (Auto) Eos % (Auto) Baso % (Auto) Neut # (Auto) Lymph # (Auto) [place] # (Auto) Eos # (Auto) Baso # (Auto) Nucleated RBC % (a uto) Nucleated RBCs # D-Dimer 1.09 ug/mIFEU H u g/mIFEU (0-0.59) Specimen Type Sample Site ABG pH ABG pCO2 ABG pO2 ABG HCO3 ABG Base Excess Mich Test Hematocrit Hgb O2 Saturation Carboxyhemoglobin Methemoglobin Total Hemoglobin O2 Delivery Device O2 Liters/Min FiO2 Childcare Worker ID Sodium Potassium Chloride Carbon Dioxide Anion Gap BUN Creatinine GFR Calculation Glucose POC Glucose 126 mg/dL H mg/dL 184 mg/dL H mg/dL (70-110) (70-110) Calculated Osmolal ity Calcium Total Bilirubin AST ALT Alkaline Phosphata se Troponin T Baselin e Troponin T 120 Min [place] Delta Troponin T Troponin T Hi Sens 6Hr Troponin T Hi Sens 6Hr Delta C-Reactive Protein NT-Pro-B Natriuret Pep Total Protein Albumin Globulin Procalcitonin SARS-CoV-2 RNA (RT -PCR) SARS-CoV-2 Ag (Rap id) 12/11/21 16:59 WBC RBC Hgb Hct MCV MCH MCHC RDW Plt Count MPV Neut % (Auto) Lymph % (Auto) [place] % (Auto) Eos % (Auto) Baso % (Auto) Neut # (Auto) Lymph # (Auto) [place] # (Auto) Eos # (Auto) Baso # (Auto) Nucleated RBC % (a uto) Nucleated RBCs # D-Dimer Specimen Type Sample Site ABG pH ABG pCO2 ABG pO2 ABG HCO3 ABG Base Excess Mich Test Hematocrit Hgb O2 Saturation Carboxyhemoglobin Methemoglobin Total Hemoglobin O2 Delivery Device O2 Liters/Min FiO2 Childcare Worker ID Sodium Potassium Chloride Carbon Dioxide Anion Gap BUN Creatinine GFR Calculation Glucose POC Glucose 140 mg/dL H mg/dL (70-110) Calculated Osmolal ity Calcium Total Bilirubin AST ALT Alkaline Phosphata se Troponin T Baselin e Troponin T 120 Min [place] Delta Troponin T Troponin T Hi Sens 6Hr Troponin T Hi Sens 6Hr Delta C-Reactive Protein NT-Pro-B Natriuret Pep Total Protein Albumin Globulin Procalcitonin SARS-CoV-2 RNA (RT -PCR) SARS-CoV-2 Ag (Rap id) EKG Data^: EKG 1: Attestation: I personally reviewed and interpreted this EKG as follows: EKG Interpretation Date: 10/21/21 EKG interpretation time: 15:05 Interpretation: Twelve-lead EKG shows a regular rhythm at a rate of 59. AR interval 176. QRS duration 101. QTc 396. borderline [place]. . Interpretation: sinus Rhythm. . EKG 2: Attestation: I personally reviewed and interpreted this EKG as follows: EKG Interpretation Date: 10/21/21 EKG interpretation time: 14:14 Interpretation: Twelve-lead EKG shows a regular rhythm at a rate of 62. AR interval 176. QRS duration 84. QTc 385. borderline [place]. . Interpretation: sinus Rhythm. . Discharge Plan Discharge Admit Provider: Chanel Johnson Condition: Stable Discharge Orders: Discharge Order (Routine); Ordered 10/24/21 Ordered By: Sujit Zhang Discharge Diet: Cardiac and Diabetic Discharge Activity: Resume usual activity Coding Level of Care Code ED Neon Sign Servicer for Chg [place]
--- NOTE | 2021-10-21 12:39 | ECG_ITS ---
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 Measurements Intervals [place] Rate: 62 P: 52 MT: 176 QRS: -26 QRSD: 84 T: 44 QT: 379 QTc: 387 Interpretive Statements SINUS RHYTHM BORDERLINE LEFT AXIS DEVIATION [QRS AXIS < -20] Compared to ECG 04/15/2021 19:57:40 Sinus bradycardia no longer present Myocardial infarct finding no longer present Electronically Signed On 10-22-2021 7:36:36 PATHOLOGY TRANSCRIPTIONIST by Eloy Otoole M.D. [id number]
--- NOTE | 2021-10-21 12:39 | XR_ITS ---
WS: [id number] Exam: XR chest 1V portable [id number] Date/Time of Exam: 10/21/2021 12:39 PM Reason For Exam: sob Comparison 03/23/2021. There are bibasal infiltrate suspicious for pneumonia. Cardiomediastinal silhouette is unremarkable. No pleural effusion or pneumothorax. Regional bony elements are intact. Marked DJD of the left glenoh umeral joint. XR/XR chest 1V portable [id number] IMPRESSION: 1. Bibasal pulmonary infiltrate suspicious for pneumonia.
[2021-10-21] MEDS: ipratropium-albuterol 3 mL Neb INHALATION ×2 (13:11→15:32)
[2021-10-21 13:16] LABS: ABG PCO2 35.7 mmHg (35-45); ABG PH Result 7.42 (7.35-7.45); Arterial Blood Gas Hematocrit 40.2 % (42-52); Base Excess ABG -1.1 mmol/L (-2.0-2.0); Blood Gas Allen Test Pos; Blood Gas Sample Type Arterial; Carboxyhemoglobin 1.5 %THgb (0.4-20.1); HGB O2 Sat 95.3 % (95-100); Methemoglobin 0.5 % (0.4-1.5); PO2 ABG 85.2 mmHg (80.0-100.0); Total Hemoglobin 13.1 g/dL (14-18)
[2021-10-21 13:17] LABS: Blood Gas Operator Identificat MONRO; Blood Gas Sample Site Radial, left; Oxygen Device NC
[2021-10-21 14:27] LABS: Basophils % 0.4 %; Eosinophils # 0.3 10^3/uL (0.0-0.8); Eosinophils % 4.4 %; Hematocrit 44.2 % (42.0-52.0); Hemoglobin 13.8 g/dL (11.7-16.6); Lymphocytes # 1.7 10^3/uL (0.8-4.8); Lymphocytes % 23.9 %; Mean Corpuscular HGB Conc 31.2 g/dL (30.0-36.0); Mean Corpuscular Hemoglobin 30.4 pg (28.0-34.0); Mean Corpuscular Volume 97.4 fl (80-94); Mean Platelet Volume 10.8 fL (7.4-10.4); Monocytes # 0.5 10^3/uL (0.2-0.9); Monocytes % 6.4 %; Neutrophils # 4.53 10^3/uL (1.8-7.7); Neutrophils % 64.6 %; Nucleated Red Blood Cells % 0 %; Platelet Count 62 10^3/cmm (130-400); Red Blood Count 4.54 10^6/uL (4.1-5.3); Red Cell Distribution Width 14.6 % (12.1-15.1)
--- NOTE | 2021-10-21 14:39 | ECG_ITS ---
[facility] Test Date: 2021-10-21 Pat Name: Jeffrey Brown Department: Room: Gender: Male Paper Twister: : 1955 Requested By: Ady Fragoso Order Number: [id number] Janet MD: Eloy Otoole M.D. Measurements Intervals [place] Rate: 59 P: 53 SC: 176 QRS: -21 QRSD: 101 T: 44 QT: 398 QTc: 395 Interpretive Statements SINUS BRADYCARDIA POSSIBLE INFERIOR MYOCARDIAL INFARCTION , PROBABLY OLD [30 ms Q WAVE IN II/aVF] Compared to ECG 10/21/2021 14:06:04 Myocardial infarct finding now present Sinus rhythm no longer present Electronically Signed On 10-22-2021 7:45:17 TIMBER WATCHMAN by Eloy Otoole M.D. [id number]
[2021-10-21 14:46] LABS: Troponin(5th) Baseline 26 ng/L (0-15)
[2021-10-21 14:53] LABS: NT Pro B Type Natriuretic Pept 1328 pg/mL (0-125); Procalcitonin 0.04 ng/mL (0-0.5)
[2021-10-21 15:05] LABS: Alanine Aminotransferase 13 U/L (0-41); Albumin Level 3.9 g/dL (3.5-5.2); Alkaline Phosphatase 41 IU/L (40-130); Blood Urea Nitrogen 21 mg/dL (8-23); C Reactive Protein 3.8 mg/L (0.0-4.9); Calcium 8.3 mg/dL (8.5-10.5); Carbon Dioxide 17 mmol/L (22-29); Chloride 105 mmol/L (98-107); Globulin 2.5 g/dL (1.3-4.6); Glomerular Filtration Rate 43.7 mL/min (90-130); Glucose 115 mg/dL (65-115); Osmolality Calculated 292 mOsm/kg (285-295); Sodium 139 mmol/L (136-145); Total Bilirubin 0.9 mg/dL (0.15-1.2); Total Protein 6.4 g/dL (6.6-8.7)
[2021-10-21 15:07] LABS: Creatinine Clr Calc Pharmacy 58.5337
[2021-10-21 15:08] LABS: Anion Gap 21.3 (5-19); Aspartate Amino Transferase 19 U/L (0-40); Potassium 4.3 mmol/L (3.5-5.1)
[2021-10-21] MEDS: predniSONE 20 mg Tablet 40 MG PO (15:21)
[2021-10-21 15:59] LABS: SARS Covid-2 Antigen Negative (Negative)
[2021-10-21 16:49] LABS: Troponin 5 2HR 30.67 ng/L (0-15); Troponin 5 2HR Delta 4.67 ABS# (0-10)
[2021-10-21] MEDS: doxycycline 100 MG in sodium chloride 0.9% (plus) 100 ML IV (17:58)
[2021-10-21] MEDS: cefTRIAXone 1,000 MG in sodium chloride 0.9% (plus) 50 ML 100 MG IV (18:01)
--- NOTE | 2021-10-21 18:39 | ECG_ITS ---
[facility] Test Date: 2021-10-21 Pat Name: Jeffrey Brown Department: Room: 262 Gender: Male Armored Cable Machine Operator: : 1955 Requested By: Ady Fragoso Order Number: [id number] Janet MD: Eloy Otoole M.D. Measurements Intervals [place] Rate: 73 P: 64 [place]: 179 QRS: 7 QRSD: 86 T: 57 QT: 377 QTc: 417 Interpretive Statements SINUS RHYTHM Compared to ECG 10/21/2021 15:03:54 Sinus bradycardia no longer present Myocardial infarct finding no longer present Electronically Signed On 10-22-2021 7:43:50 ANIMATION PRODUCER by Eloy Otoole M.D. [id number]
--- NOTE | 2021-10-21 19:33 | PM.HP ---
Providers/Chief Complaint Admitting Physician: Chanel Johnson MD Primary Care Provider: Fer Musa DO Chief Complaint: SOB/ GENERALIZED WEAKNESS History of Present Illness Jeffrey Brown is a 66 year old male who presented to the emergency room chief complaint of difficulty breathing. He started having a nonproductive cough and increasing dyspnea with exertion maybe 4 days ago and has progressively worsened since then. He denies any wheezing. Not had a runny nose or sore throat. No fever. No known sick contacts. He is not COVID vaccinated. He has a history of COPD from former tobacco use and thought it was just acting up. He used his inhalers without any improvement. In the last 24 to 48 hours he has become very tired and worn out. He has been unable to sleep lying down. Does not really describe orthopnea. He has had some swelling in his right lower extremity primarily around the ankle. Denies any increased abdominal girth. Today he had significant acute worsening and called EMS. In route received a nebulizer treatment without much improvement. He was placed on 2 L oxygen by nasal cannula. On arrival here vital signs showed stable saturations with oxygen and hypertension plus some mild tachypnea. ABG was unremarkable. Patient is not chronically on oxygen. In addition to COPD, he has a history of coronary artery disease, chronic kidney disease and hepatitis C status post treatment but with some cirrhotic findings. Chest x-ray showed bilateral lower lobe infiltrates and BNP was elevated around 1300. There was concern for pneumonia and associated COPD exacerbation so he was covered with Rocephin and doxycycline, steroids both IV and oral. Request was made for admission. Review of Systems Const: Reports: fatigue; Denies: fever(s), chills or change in weight Eyes: Denies: change in vision ENMT: Reports: dry mouth; Denies: throat pain or nasal congestion Card: Reports: edema, dyspnea on exertion and orthopnea; Denies: chest pain, palpitations or lightheadedness Resp: Reports: dyspnea and non-productive cough; Denies: productive cough, wheezing or pain on inspiration GI: Reports: nausea; Denies: abdominal pain, vomiting, diarrhea or constipation : Denies: difficulty urinating Skin/Breast: Denies: rash, pruritus or sores Neuro: Reports: weakness in extremities (General rather than focal); Denies: headache(s), numbness in extremities or confusion Psych: Reports: anxiety (With trouble breathing) Jesús/Lymph: Denies: easy bruising or easy bleeding Medications/Allergies Home Medications Medication Instructions Recorded Confirmed Last Taken Type Multi-Vitamin HP/Minerals 1 cap PO DAILY@109912/28/19 10/21/21 10/21/21 History atorvastatin 80 mg PO DAILY@199912/28/19 10/21/21 10/20/21 History cholecalciferol (vitamin D3) 2,000 unit PO DAILY@109912/28/19 10/21/21 10/21/21 History ferrous sulfate 325 mg PO DAILY@109912/28/19 10/21/21 10/21/21 History omeprazole 40 mg PO DAILY@109912/28/19 10/21/21 10/21/21 History metoprolol tartrate 25 mg PO BID@1099,199912/30/19 10/21/21 10/21/21 History senna 8.6 mg PO DAILY PRN 12/30/19 10/21/21 04/14/21 History levetiracetam [Keppra] 500 mg PO BID #60 tab 01/03/20 10/21/21 10/21/21 Rx losartan 100 mg tablet 50 mg PO DAILY@109903/17/20 10/21/21 10/21/21 History pentoxifylline 400 mg 400 mg PO TID 03/17/20 10/21/21 10/21/21 History tablet,extended release aspirin 81 mg PO DAILY 08/31/20 10/21/21 10/20/21 History ipratropium-albuterol 3 ml INHALATION Q6H PRN #60 ml 09/01/20 10/21/21 04/14/21 10:00 Rx tiotropium 2.5 mcg-olodaterol 2.5 2 puff INHALATION DAILY #4 g 11/25/20 10/21/21 10/21/21 Rx mcg/actuation mist for inhalation Lantus Solostar U-100 Insulin 17 unit SUBCUT DAILY@1700 01/31/21 10/21/21 10/20/21 History albuterol sulfate 2 puff INHALATION Q4H PRN 01/31/21 10/21/21 03/23/21 History clopidogrel [Plavix] 75 mg PO DAILY@109901/31/21 10/21/21 10/21/21 History insulin aspart U-100 [Novolog 10 unit SUBCUT TIDWM 01/31/21 10/21/21 04/14/21 History Flexpen U-100 Insulin] fluticasone propionate 2 spray INTRANASAL DAILY 03/23/21 10/21/21 03/23/21 History furosemide [Lasix] 20 mg PO DAILY #20 tab 03/23/21 10/21/21 10/21/21 Rx ibuprofen 600 mg PO Q6H PRN 03/23/21 10/21/21 04/14/21 History tamsulosin 0.4 mg PO BID@1100,199903/23/21 10/21/21 10/21/21 History escitalopram oxalate 5 mg PO DAILY #30 tab 04/18/21 10/21/21 10/21/21 Rx Allergies Allergy/AdvReac Type Severity Reaction Status Date / Time No Known Allergies Allergy Verified 10/21/21 21:40 PFSH Acute PFSH: Medical History (Updated 10/22/21 @ 03:42 by Chanel Johnson MD) Aortic regurgitation Benign prostatic hyperplasia CAD (coronary artery disease) Cervical disc disorder with myelopathy of mid-cervical region Chronic kidney disease, stage III (moderate) Claustrophobia COPD (chronic obstructive pulmonary disease) Coronary artery calcification CVA (cerebral vascular accident) (~01/2021) clinical diagnosis with dysarthria and confusion, unremarkable work up but unable to perform MRI due to severe claustrophobia Degenerative joint disease of left shoulder Degenerative lumbar disc Depression hospitalization 04/2021 Diabetes mellitus Facet arthropathy, lumbar Frequent UTI Hepatitis C virus infection resolved after antiviral drug therapy some early cirrhosis, HCC ruled out History of DVT (deep vein thrombosis) (~12/2018) History of PFTs (~01/2021) moderate obstructive ventilatory defect, significant response to bronchodilators. Lung volumes suggestive of mild air trapping. Mild reduction in gas transfer. Hypertension Lumbar disc disease with radiculopathy Mitral regurgitation Myoclonus dystonia Obesity (BMI 30.0-34.9) Peripheral vascular disease Thrombocytopenia 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 C and splenomegaly Tobacco abuse Surgical History (Updated 10/22/21 @ 03:22 by Chanel Johnson MD) H/O hernia repair History of femoropopliteal bypass History of PTCA x2 S/P AKA (above knee amputation) unilateral left S/P peripheral artery angioplasty with stent placement bilateral common iliac, multiple in LLE with chronically occluded left SFA Family History Father Diabetes Brother Diabetes Grandmother Diabetes Mother COPD (chronic obstructive pulmonary disease) Father No problems noted. 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 Pets and animals: No Current gender identity: Male Vitals/I&O/Wt Last Vital Signs Temp 97.8 F 10/21/21 12:15 Pulse 75 10/21/21 15:38 Resp 20 H 10/21/21 15:38 BP 168/72 10/21/21 12:15 Pulse Ox 95 10/21/21 15:38 Weight last 48 hrs Weight 108.862 kg Physical Exam Narrative: EXAM NARRATIVE: Constitutional: Awake and alert, looks tired, cooperative HEENT: Normocephalic, extraocular movements are intact, nasopharynx without significant rhinorrhea, oropharynx with moist membranes Neck: Large but supple Respiratory: Bibasilar rales, right greater than left, no wheezes notable at the time of my examination, no accessory muscle use, no rhonchi Cardiovascular: Regular rate and rhythm, JVD to angle of jaw Abdomen: Soft, protuberant, positive bowel sounds, nontender, no fluid wave Extremities: Left AKA without notable edema at the stump, 1+ edema right Skin: Dry, chronic changes, scattered ecchymoses, pale Neuro: Speech a little garbled at times but when he takes his time it is clear, face is symmetric, moves all extremities Psych: Normal affect Data : 10/21/21 14:20 10/21/21 14:20 Other Labs: Laboratory Results WBC 7.0 10^3/uL (4.0-10.0) 10/21/21 14:20 RBC 4.54 10^6/uL (4.1-5.3) 10/21/21 14:20 Hgb 13.8 g/dL (11.7-16.6) 10/21/21 14:20 Hct 44.2 % (42.0-52.0) 10/21/21 14:20 MCV 97.4 fl (80-94) H 10/21/21 14:20 MCH 30.4 pg (28.0-34.0) 10/21/21 14:20 MCHC 31.2 g/dL (30.0-36.0) 10/21/21 14:20 RDW 14.6 % (12.1-15.1) 10/21/21 14:20 Plt Count 62 10^3/cmm (130-400) L 10/21/21 14:20 MPV 10.8 fL (7.4-10.4) H 10/21/21 14:20 Neut % (Auto) 64.6 % 10/21/21 14:20 Lymph % (Auto) 23.9 % 10/21/21 14:20 [place] % (Auto) 6.4 % 10/21/21 14:20 Eos % (Auto) 4.4 % 10/21/21 14:20 Baso % (Auto) 0.4 % 10/21/21 14:20 Neut # (Auto) 4.53 10^3/uL (1.8-7.7) 10/21/21 14:20 Lymph # (Auto) 1.7 10^3/uL (0.8-4.8) 10/21/21 14:20 [place] # (Auto) 0.5 10^3/uL (0.2-0.9) 10/21/21 14:20 Eos # (Auto) 0.3 10^3/uL (0.0-0.8) 10/21/21 14:20 Baso # (Auto) 0.0 10^3/uL (0.0-0.1) 10/21/21 14:20 Nucleated RBC % (auto) 0 % 10/21/21 14:20 Nucleated RBCs # 0.0 /100WBC 10/21/21 14:20 Specimen Type Arterial 10/21/21 13:04 Sample Site Radial, left 10/21/21 13:04 ABG pH 7.42 (7.35-7.45) 10/21/21 13:04 ABG pCO2 35.7 mmHg (35-45) 10/21/21 13:04 ABG pO2 85.2 mmHg (80.0-100.0) 10/21/21 13:04 ABG HCO3 23.0 mmol/L (22-26) 10/21/21 13:04 ABG Base Excess -1.1 mmol/L (-2.0-2.0) 10/21/21 13:04 [place] Test Pos 10/21/21 13:04 Hematocrit 40.2 % (42-52) L 10/21/21 13:04 Hgb O2 Saturation 95.3 % (95-100) 10/21/21 13:04 Carboxyhemoglobin 1.5 %THgb (0.4-20.1) 10/21/21 13:04 Methemoglobin 0.5 % (0.4-1.5) 10/21/21 13:04 Total Hemoglobin 13.1 g/dL (14-18) L 10/21/21 13:04 O2 Delivery Device Nc 10/21/21 13:04 O2 Liters/Min 2.0 % 10/21/21 13:04 FiO2 28.0 % 10/21/21 13:04 Computer Hardware Designer ID [place] 10/21/21 13:04 Sodium 139 mmol/L (136-145) 10/21/21 14:20 Potassium 4.3 mmol/L (3.5-5.1) 10/21/21 14:20 Chloride 105 mmol/L (98-107) 10/21/21 14:20 Carbon Dioxide 17 mmol/L (22-29) L 10/21/21 14:20 Anion Gap 21.3 (5-19) H 10/21/21 14:20 BUN 21 mg/dL (8-23) 10/21/21 14:20 Creatinine 1.6 mg/dL (0.7-1.2) H 10/21/21 14:20 GFR Calculation 43.7 mL/min (90-130) L 10/21/21 14:20 Glucose 115 mg/dL (65-115) 10/21/21 14:20 Calculated Osmolality 292 mOsm/kg (285-295) 10/21/21 14:20 Calcium 8.3 mg/dL (8.5-10.5) L 10/21/21 14:20 Total Bilirubin 0.9 mg/dL (0.15-1.2) 10/21/21 14:20 AST 19 U/L (0-40) 10/21/21 14:20 ALT 13 U/L (0-41) 10/21/21 14:20 Alkaline Phosphatase 41 IU/L (40-130) 10/21/21 14:20 Troponin T Baseline 26 ng/L (0-15) H 10/21/21 14:20 Troponin T 120 Minute 30.67 ng/L (0-15) H 10/21/21 16:12 Delta Troponin T 4.67 ABS# (0-10) 10/21/21 16:12 C-Reactive Protein 3.8 mg/L (0.0-4.9) 10/21/21 14:20 NT-Pro-B Natriuret Pep 1328 pg/mL (0-125) H 10/21/21 14:20 Total Protein 6.4 g/dL (6.6-8.7) L 10/21/21 14:20 Albumin 3.9 g/dL (3.5-5.2) 10/21/21 14:20 Globulin 2.5 g/dL (1.3-4.6) 10/21/21 14:20 Procalcitonin 0.04 ng/mL (0-0.5) 10/21/21 14:20 SARS-CoV-2 Ag (Rapid) Negative (Negative) 10/21/21 12:10 Impressions Chest X-Ray 10/21/21 12:39 IMPRESSION: 1. Bibasal pulmonary infiltrate suspicious for pneumonia. A&P Assessment and plan (1) Dyspnea: Over the last several days. Initial presentation as described by EMS and ER physician seem consistent with COPD exacerbation and he was treated as such. He reports he has not smoked in some time. He indicated that this episode was different than prior times he has been in the hospital. Looking at chest x-ray, my personal interpretation is pulmonary edema/fluid retention. Present examination supports this as does elevated BNP. Risk factors include known coronary artery disease, chronic kidney disease, hepatitis C cirrhosis, known aortic regurgitation and mitral regurgitation although both are mild by last echocardiogram. That echocardiogram showed normal ejection fraction at 55% with normal diastolic function noted. Viral or bacterial pneumonia is a consideration however lack of other symptoms, normal white count and differential and unremarkable CRP and procalcitonin tend to go against this presently. Arrhythmia, angina, embolic disease, reflux disease, others also within the differential. Status: Acute Qualifiers: Dyspnea type: dyspnea on exertion Qualified Code(s): R06.00 - Dyspnea, unspecified (2) CAD (coronary artery disease): With a history of prior stents, does not describe chest pain even with his episodes of shortness of breath though is a diabetic. Had CT imaging at the [facility] earlier this year with some coronary calcifications. Baseline and 2-hour troponin are consistent with prior values and with an unremarkable delta. Chronically on aspirin, statin, Plavix and beta-blockade. Status: Chronic Qualifiers: Associated angina: without angina Coronary Disease-Associated Artery/Lesion type: augustine artery [place] vs. transplanted heart: augustine heart Qualified Code(s): I25.10 - Atherosclerotic heart disease of augustine coronary artery without angina pectoris (3) COPD (chronic obstructive pulmonary disease): Related to tobacco use, he denies current smoking. Not on chronic oxygen or steroids Status: Chronic Qualifiers: COPD type: emphysema Emphysema type: centrilobular Qualified Code(s): J43.2 - Centrilobular emphysema (4) Chronic kidney disease, stage III (moderate): Creatinine has ranged from 1.6-2.0 over the last year. Status: Chronic Qualifiers: Chronic kidney disease stage 3 subtype: stage 3b (GFR 30-44) Qualified Code(s): N18.32 - Chronic kidney disease, stage 3b (5) Diabetes mellitus: Insulin requiring, associated with current hyperglycemia, CKD and neuropathy. With steroid administration this evening at risk for significant hyperglycemia overnight. Status: Chronic Qualifiers: Chronic kidney disease stage: stage 3 (moderate) Chronic kidney disease stage 3 subtype: stage 3b (GFR 30-44) Diabetes mellitus complication detail: with chronic kidney disease Diabetes mellitus complication status: with kidney complications Diabetes mellitus rn long term care insulin use: with rn long term care use Diabetes mellitus type: type 2 Qualified Code(s): E11.21 - Type 2 diabetes mellitus with diabetic nephropathy; N18.32 - Chronic kidney disease, stage 3b; Z79.4 - ocean transportation intermediary (current) use of insulin (6) Hypertension: In addition to beta-blockade, patient is chronically on losartan and Lasix. Currently with uncontrolled blood pressures. Status: Chronic Qualifiers: Hypertension type: essential hypertension Qualified Code(s): I10 - Essential (primary) hypertension (7) Thrombocytopenia: Tonic, stable, 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 C and splenomegaly Status: Chronic (8) Hepatitis C virus infection resolved after antiviral drug therapy: Last hepatitis C viral levels undetectable Status: Chronic (9) Obesity (BMI 30.0-34.9): Status: Chronic Additional A&P Information Denies current tobacco use Peripheral vascular disease on chronic pentoxifylline Benign prostatic hypertrophy and recurrent urinary tract infections on chronic Flomax Gastroesophageal reflux disease on chronic PPI History of myoclonus on Keppra History of depression with hospitalization earlier this year on escitalopram Observation admission IV diuresis Serial cardiac enzymes Limiter monitoring overnight Limited echocardiogram in the morning Continue home aspirin, Plavix, statin, beta-blockade Continue home losartan Continue breathing treatments as needed Covid PCR has been sent, rapid Covid antigen was negative Check D-dimer Hold further steroids and antibiotics Strict I's and O's and daily weights Monitor blood sugars closely Long and short acting insulin ordered Check hemoglobin A1c Continue home pentoxifylline Continue home Flomax PPI Home Keppra Continue home escitalopram for depression Home vitamin D and ferrous sulfate have also been continued SCD to right lower extremity, no pharmacological DVT prophylaxis secondary to thrombocytopenia We will monitor response to above and reevaluate oxygen saturations with exertion and clinical response tomorrow Concerns and plans regarding management were discussed with patient and he was given an opportunity to ask questions Anticipate discharge home with outpatient follow-up once medically stable Full code per discussion with patient Attestations Medical Necessity Statement*: Currently anticipate a stay less than two midnights in gentleman with comorbid medical conditions as noted presenting with dyspnea over the last few days, requiring oxygen at a low flow rate. Not normally on oxygen. Imaging looks consistent with pulmonary edema which anticipate will need diuresis. Other findings, concerns and plans are as noted above. 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 transplanted heart: augustine heart COPD (chronic obstructive pulmonary disease) J43.2 COPD type: emphysema Emphysema type: centrilobular Chronic kidney disease, stage III (moderate) N18.32 Chronic kidney disease stage 3 subtype: stage 3b (GFR 30-44) Diabetes mellitus E11.21; N18.32; Z79.4 Chronic kidney disease stage: stage 3 (moderate) Chronic kidney disease stage 3 subtype: stage 3b (GFR 30-44) Diabetes mellitus complication detail: with chronic kidney disease Diabetes mellitus complication status: with kidney complications Diabetes mellitus rn long term care insulin use: with retirement use Diabetes mellitus type: type 2 Hypertension I10 Hypertension type: essential hypertension Thrombocytopenia D69.6 Hepatitis C virus infection resolved after antiviral drug therapy Z86.19 Obesity (BMI 30.0-34.9) E66.9
[2021-10-21 20:20] LABS: Troponin 5 6HR 23.16 ng/L (0-15)
[2021-10-21 20:21] LABS: Troponin 5 6HR Delta -2.84 ng/L (0-12)
[2021-10-21 21:32] LABS: Glucose Point of Care 331 mg/dL (70-110)
[2021-10-21] MEDS: insulin glargine 100 units/1 mL 5 UNIT SUBCUT (21:44)
[2021-10-21] MEDS: insulin lispro 100 unit/1 mL SUBCUT (21:45)
[2021-10-22] VITALS (7 sets, daily range): BP systolic 104–169; BP diastolic 54–67; PULSE 61–76; RESP 16–18; TEMP 36.4–37; O2SAT 93–98
[2021-10-22] MEDS: FUROsemide 10 mg/mL SDV 10mL 60 MG IVP (03:14)
[2021-10-22 07:05] LABS: D Dimer 1.09 ug/mIFEU (0-0.59)
[2021-10-22] MEDS: FUROsemide 10 mg/mL SDV 4mL 40 MG IVP (09:14)
[2021-10-22] MEDS: escitalopram 10 mg Tablet 5 MG PO (09:15)
[2021-10-22] MEDS: atorvastatin 40 mg Tablet 80 MG PO (09:15)
[2021-10-22] MEDS: potassium chloride ER 20 mEq Tablet PO (09:15)
[2021-10-22] MEDS: docusate sodium 100 mg Capsule PO ×2 (09:15→17:13)
[2021-10-22] MEDS: cholecalciferol (vitamin D3) 1,000 unit Tablet 2000 UNIT PO (09:15)
[2021-10-22] MEDS: metoprolol tartrate 50 mg Tablet 25 MG PO ×2 (09:15→21:15)
[2021-10-22] MEDS: tamsulosin 0.4 mg Capsule PO ×2 (09:15→21:15)
[2021-10-22] MEDS: losartan 50 mg Tablet PO (09:15)
[2021-10-22] MEDS: levETIRAcetam 500 mg Tablet PO ×2 (09:15→17:13)
[2021-10-22] MEDS: aspirin 81 mg Chew Tablet PO (09:15)
[2021-10-22] MEDS: fluticasone nasal spray 16gm Btl 2 SPRAY INTRANASAL (09:19)
[2021-10-22] MEDS: ferrous sulfate EC 325 mg Tablet PO (11:22)
[2021-10-22] MEDS: pantoprazole DR 40 mg Tablet PO (11:22)
[2021-10-22] MEDS: clopidogrel 75 mg Tablet PO (11:22)
--- NOTE | 2021-10-22 11:51 | PC.CHAP ---
Pastoral Care Encounter/Spiritual Assessment Type of Contact [] Declined copy manager visit [] Patient/Family/Request visit [] Outpatient visit [] Follow-up visit [] Physician referral [] Code/Alert [XX] Routine visit [] Staff referral [] Actively dying [] Patient sleeping [] Family support [] [] Out of room [] Palliative care [] [] Receiving care in room [] Pre-surgical visit [] Trauma [] Long length of stay [] ICU visit [XX] Other: isolation Relational/Emotional Strength [] Patient feels connected with others/family/visitors/staff [] Distress [] Loneliness/isolation [] Abandonment Spirituality of Patient [] Person of [place] [] Attends Tenriism of their [place] [] Believes in Prayer [] Reads Bible or Lutheran materials [] There are Spiritual issues to be addressed Litigation Specialist Interventions [] Prayer [] Active listening [] Non-anxious presence [] Spiritual/emotional support [] Crisis/trauma care [] Spiritual counseling [] Bereavement support [] Provided bereavement packet [] Provided Bible/devotional materials [] Provided toy/stuffed animal, coloring book to patient or family member [] Provided Communion [] Anointing/[place] [] Salvation [] Completed spiritual assessment [] Other: Impact on Illness or Injury [] Angry [] Fearful [] Anxious [] Often cries [] Exhaustion [] Unable to work [] Unable to attend yazidi [] Unable to walk/stand [] Unable to read [] Unable to drive [] Unable to eat/drink [] Unable to sleep [] Unable to be with family [] Patient intubated [] Other: Summary Time spent with patient
[2021-10-22] MEDS: insulin lispro 100 unit/1 mL SUBCUT ×2 (11:53→11:56)
[2021-10-22 12:29] LABS: Glucose Point of Care 126 mg/dL (70-110)
[2021-10-22 12:29] LABS: Glucose Point of Care 184 mg/dL (70-110)
[2021-10-22 17:04] LABS: Glucose Point of Care 140 mg/dL (70-110)
--- NOTE | 2021-10-22 18:45 | P.PN_ITS ---
Subjective Subjective: Interval history: Doing slightly better, but not that much. Not much cough. Denies chest pain. Vitals/I&O/Wt Last Vital Signs Temp 97.8 F 10/22/21 15:28 Pulse 64 10/22/21 18:18 Resp 16 10/22/21 15:28 BP 106/62 10/22/21 15:28 Pulse Ox 98 10/22/21 18:18 10/22/21 10/22/21 10/22/21 06:59 14:59 22:59 Intake Total 240 / 870 360 / 360 Output Total 2550 / 2550 2775 / 2775 350 / 3125 Balance -2310 / -1680 -2415 / -2415 -350 / -2765 Weight last 48 hrs Weight 108.465 kg Weight 110.393 kg Weight 108.862 kg Physical Exam Const: COMMON NORMALS: no acute distress and patient oriented x3 HENMT: COMMON NORMALS: oropharynx normal Neck/C-Spine: COMMON NORMALS: no JVD Resp: COMMON NORMALS: normal respiratory effort AUSCULTATION: wheezes and diminished lung sounds Cardio: COMMON NORMALS: no JVD, regular rhythm, S1 normal heart sound present, S2 normal heart sound present and No murmurs present (Cardio) RHYTHM: regular rhythm HEART SOUNDS: S1 normal heart sound present and S2 normal heart sound present GI: COMMON NORMALS: Normal to inspection, nondistended, normoactive bowel sounds present, Soft to palpation and non-tender PALPATION: Yes Soft to palpation Extremity: COMMON NORMALS: no joint enlargement and no pedal edema Neuro: COMMON NORMALS: patient oriented x3 and moves all extremities Skin: COMMON NORMALS: no rashes or lesions noted GENERAL SKIN EXAM: no rashes or lesions noted Data : 10/21/21 14:20 10/21/21 14:20 A&P Assessment and plan (1) Dyspnea: COPD exacerbation. Possible CHF exacerbation. Little bit less likely possible pneumonia as per imaging, although otherwise no leukocytosis, afebrile. Procalcitonin not elevated, but can be low in atypical infection. Follow-up COVID-19 PCR. Continue antibiotic coverage with ceftriaxone, doxycycline. Resume IV steroids. Require sputum cultures. Continue diuresis with Lasix. Limited echocardiogram with normal ejection fraction, no regional wall motion abnormality. Mildly increased left atrial size. No pericardial effusion. Status: Acute Qualifiers: Dyspnea type: dyspnea on exertion Qualified Code(s): R06.00 - Dyspnea, unspecified (2) CAD (coronary artery disease): No chest pain or pressure. With a history of prior stents, does not describe chest pain even with his episodes of shortness of breath though is a diabetic. Had CT imaging at the [facility] earlier this year with some coronary calcifications. Baseline and 2-hour troponin are consistent with prior values and with an unremarkable delta. Chronically on aspirin, statin, Plavix and beta-blockade. Status: Chronic Qualifiers: Coronary Disease-Associated Artery/Lesion type: [place] artery [place] vs. transplanted heart: [place] heart Associated angina: without angina Q ualified Code(s): I25.10 - Atherosclerotic heart disease of [place] coronary artery without angina pectoris (3) COPD (chronic obstructive pulmonary disease): Related to tobacco use, he denies current smoking. Not on chronic oxygen or steroids Status: Chronic Qualifiers: COPD type: emphysema Emphysema type: centrilobular Qualified Code(s): J43.2 - Centrilobular emphysema (4) Chronic kidney disease, stage III (moderate): Reassess renal function with diuresis. Creatinine has ranged from 1.6-2.0 over the last year. Status: Chronic Qualifiers: Chronic kidney disease stage 3 subtype: stage 3b (GFR 30-44) Qualified Code(s): N18.32 - Chronic kidney disease, stage 3b (5) Diabetes mellitus: Continue insulin. Insulin requiring, associated with current hyperglycemia, CKD and neuropathy. Status: Chronic Qualifiers: Diabetes mellitus type: type 2 Diabetes mellitus long term care administrator insulin use: with long term care administrator use Diabetes mellitus complication status: with kidney complications Diabetes mellitus complication detail: with chronic kidney disease Chronic kidney disease stage: stage 3 (moderate) Chronic kidney disease stage 3 subtype: stage 3b (GFR 30-44) Qualified Code(s): E11.21 - Type 2 diabetes mellitus with diabetic nephropathy; N18.32 - Chronic kidney disease, stage 3b; Z79.4 - [facility] (current) use of insulin (6) Hypertension: Blood pressure significantly improved. In addition to beta-blockade, pat ient is chronically on losartan and Lasix. 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 Coding Level of Care Code Acute Degreasing Solution Mixer for [facility] Fwd Diagnoses Dyspnea R06.00 Dyspnea type: dyspnea on exertion CAD (coronary artery disease) I25.10 Coronary Disease-Associated Artery/Lesion type: [place] artery [place] vs. transplanted heart: [place] heart Associated angina: without angina COPD (chronic obstructive pulmonary disease) J43.2 COPD type: emphysema Emphysema type: centrilobular Chronic kidney disease, stage III (moderate) N18.32 Chronic kidney disease stage 3 subtype: stage 3b (GFR 30-44) Diabetes mellitus E11.21; N18.32; Z79.4 Diabetes mellitus type: type 2 Diabetes mellitus prison insulin use: with long term care administrator use Diabetes mellitus complication status: with kidney complications Diabetes mellitus complication detail: with chronic kidney disease Chronic kidney disease stage: stage 3 (moderate) Chronic kidney disease stage 3 subtype: stage 3b (GFR 30-44) Hypertension I10 Hypertension type: essential hypertension Thrombocytopenia D69.6 Hepatitis C virus infection resolved after antiviral drug therapy Z86.19 Obesity (BMI 30.0-34.9) E66.9
[2021-10-22 20:45] LABS: Glucose Point of Care 153 mg/dL (70-110)
--- NOTE | 2021-10-22 21:13 | USCV_ITS ---
Jeffrey Brown Age: 66 Gender: M : 1955 Exam Date: 10/22/2021 07:47 Ordering Phys: Chanel Johnson MD Technologist: Kell Hurtado Exam Location: [facility] [place] Indication: Acute CHF symptoms, no h/o CHF, known AR/MR last echo 01-30-21 BP: 156 / 54 HR: 57 Rhythm: Sinus Technical Quality: Fair MEASUREMENTS (Male / Female) Normal Values 2D ECHO LV Diastolic Diameter PLAX 4.2 cm 4.2 - 5.9 / 3.9 - 5.3 cm LV Systolic Diameter PLAX 2.9 cm IVS Diastolic Thickness 1.1 cm 0.6 - 1.0 / 0.6 - 0.9 cm IVS Systolic Thickness 1.0 cm LVPW Diastolic Thickness 1.0 cm 0.6 - 1.0 / 0.6 - 0.9 cm LVPW Systolic Thickness 1.1 cm LV Ejection Fraction 2D Teich 57.8 % LV Ejection Fraction MOD 2C 59.7 % LV Ejection Fraction 2C AL 58.5 % FINDINGS Left Ventricle Normal left ventricular size and systolic function, EF 65 %. No regional wall motion abnormalities. Right Ventricle The right ventricle is normal in size and function. Right Atrium The right atrium is normal in size. Left Atrium Mildly increased left atrial size. Mitral Valve Thickened mitral valve. Moderate mitral annular calcification. Aortic Valve Thickened aortic valve. Tricuspid Valve No gross abnormalities noted Pulmonic Valve Pulmonic valve not well visualized. Pericardium Normal pericardium without effusion. Aorta Normal ascending aorta dimension. CONCLUSIONS Normal left ventricular size and systolic function, EF 65 %. No regional wall motion abnormalities. Mildly increased left atrial size. Thickened aortic valve. Thickened mitral valve. Moderate mitral annular calcification. There is no pericardial effusion. There are no intracardiac masses. No previous study is available for comparison. Dr Sudeep Cotto MD [facility] (Electronically Signed) Final Date: 22 October 2021 09:58 S
[2021-10-22] MEDS: insulin glargine 100 units/1 mL 5 UNIT SUBCUT (21:16)
[2021-10-22] MEDS: cefTRIAXone 1,000 MG in sodium chloride 0.9% (plus) 50 ML 100 MG IV (21:16)
[2021-10-22] MEDS: doxycycline 100 MG in sodium chloride 0.9% (plus) 100 ML IV (22:09)
[2021-10-22] MEDS: NON-FORMULARY MEDICATION (Pentoxifylline 400 mg tablet extended release) 400 EACH PO (23:20)
[2021-10-23] VITALS (12 sets, daily range): BP systolic 112–148; BP diastolic 61–74; PULSE 57–94; RESP 16–20; TEMP 36.7–36.9; O2SAT 88–99
[2021-10-23] MEDS: acetaminophen 325 mg Tablet 650 MG PO ×2 (01:10→10:38)
--- NOTE | 2021-10-23 05:37 | PC.NURSE ---
Lai RICHARDS from ICU at bedside attempting ultrasound guided IV insertion.
[2021-10-23 06:19] LABS: Glucose Point of Care 131 mg/dL (70-110)
[2021-10-23] MEDS: docusate sodium 100 mg Capsule PO ×2 (08:11→17:23)
[2021-10-23] MEDS: potassium chloride ER 20 mEq Tablet PO (08:11)
[2021-10-23] MEDS: escitalopram 10 mg Tablet 5 MG PO (08:11)
[2021-10-23] MEDS: metoprolol tartrate 50 mg Tablet 25 MG PO ×2 (08:11→22:34)
[2021-10-23] MEDS: aspirin 81 mg Chew Tablet PO (08:11)
[2021-10-23] MEDS: losartan 50 mg Tablet PO (08:12)
[2021-10-23] MEDS: atorvastatin 40 mg Tablet 80 MG PO (08:12)
[2021-10-23] MEDS: fluticasone nasal spray 16gm Btl 2 SPRAY INTRANASAL (08:12)
[2021-10-23] MEDS: tamsulosin 0.4 mg Capsule PO ×2 (08:12→22:45)
[2021-10-23] MEDS: levETIRAcetam 500 mg Tablet PO ×2 (08:12→17:23)
[2021-10-23] MEDS: cholecalciferol (vitamin D3) 1,000 unit Tablet 2000 UNIT PO (08:12)
[2021-10-23] MEDS: ipratropium-albuterol 3 mL Neb INHALATION ×2 (08:40→19:47)
[2021-10-23] MEDS: predniSONE 20 mg Tablet 40 MG PO (08:49)
[2021-10-23] MEDS: doxycycline 100 mg Tablet PO ×2 (08:49→17:23)
[2021-10-23] MEDS: bumetanide 1 mg Tablet PO (08:49)
[2021-10-23] MEDS: ferrous sulfate EC 325 mg Tablet PO (10:38)
[2021-10-23] MEDS: cefdinir 300 MG CAPSULE PO ×2 (10:38→17:25)
[2021-10-23] MEDS: clopidogrel 75 mg Tablet PO (10:38)
[2021-10-23] MEDS: pantoprazole DR 40 mg Tablet PO (10:38)
[2021-10-23 11:29] LABS: Glucose Point of Care 201 mg/dL (70-110)
[2021-10-23] MEDS: insulin lispro 100 unit/1 mL SUBCUT ×3 (11:38→22:30)
--- NOTE | 2021-10-23 12:23 | PC.CHAP ---
Pastoral Care Encounter/Spiritual Assessment Type of Contact [] Declined candy maker helper visit [] Patient/Family/Request visit [] Outpatient visit [] Follow-up visit [] Physician referral [] Code/Alert [XX] Routine visit [] Staff referral [] Actively dying [] Patient sleeping [] Family support [] [] Out of room [] Palliative care [] [] Receiving care in room [] Pre-surgical visit [] Trauma [] Long length of stay [] ICU visit [XX] Other: isolation Relational/Emotional Strength [] Patient feels connected with others/family/visitors/staff [] Distress [] Loneliness/isolation [] Abandonment Spirituality of Patient [] Person of [place] [] Attends Lutheran of their [place] [] Believes in Prayer [] Reads Bible or Mandaeism materials [] There are Spiritual issues to be addressed Costuming Supervisor Interventions [] Prayer [] Active listening [] Non-anxious presence [] Spiritual/emotional support [] Crisis/trauma care [] Spiritual counseling [] Bereavement support [] Provided bereavement packet [] Provided Bible/devotional materials [] Provided toy/stuffed animal, coloring book to patient or family member [] Provided Communion [] Anointing/[place] [] Salvation [] Completed spiritual assessment [] Other: Impact on Illness or Injury [] Angry [] Fearful [] Anxious [] Often cries [] Exhaustion [] Unable to work [] Unable to attend taoist [] Unable to walk/stand [] Unable to read [] Unable to drive [] Unable to eat/drink [] Unable to sleep [] Unable to be with family [] Patient intubated [] Other: Summary Time spent with patient
[2021-10-23 17:00] LABS: Glucose Point of Care 240 mg/dL (70-110)
--- NOTE | 2021-10-23 17:09 | P.PN_ITS ---
Subjective Subjective: Interval history: She is doing slightly better today, but still gets dyspnea, earlier today had trouble laying back flat due to shortness of breath, however, states that improved after breathing treatment. No chest pain or pressure. Had a very difficult time keeping an IV in due to pain. Pulled out several times, reinsertion attempted, subsequently could not be obtained, he declined further attempt. We had to transition his medications to oral. Vitals/I&O/Wt Last Vital Signs Temp 98.2 F 10/23/21 16:00 Pulse 64 10/23/21 16:00 Resp 16 10/23/21 16:00 BP 123/69 10/23/21 16:00 Pulse Ox 92 10/23/21 16:00 10/23/21 10/23/21 10/23/21 06:59 14:59 22:59 Intake Total 150 / 630 480 / 480 Output Total 800 / 3925 Balance -650 / -3295 480 / 480 Weight last 48 hrs Weight 107.774 kg Weight 108.465 kg Weight 110.393 kg Physical Exam 2 Const: COMMON NORMALS: no acute distress and patient oriented x3 HENMT: COMMON NORMALS: oropharynx normal Neck/C-Spine: COMMON NORMALS: no JVD Resp: COMMON NORMALS: normal respiratory effort AUSCULTATION: no wheezes and diminished lung sounds (Diminished, but with mild improvement) Cardio: COMMON NORMALS: no JVD, regular rhythm, S1 normal heart sound present, S2 normal heart sound present and No murmurs present (Cardio) RHYTHM: regular rhythm HEART SOUNDS: S1 normal heart sound present and S2 normal heart sound present GI: COMMON NORMALS: Normal to inspection, nondistended, normoactive bowel sounds present, Soft to palpation and non-tender PALPATION: Yes Soft to palpation Extremity: COMMON NORMALS: no joint enlargement and no pedal edema Neuro: COMMON NORMALS: patient oriented x3 and moves all extremities Skin: COMMON NORMALS: no rashes or lesions noted GENERAL SKIN EXAM: no rashes or lesions noted Data : 10/21/21 14:20 10/21/21 14:20 A&P Assessment and plan (1) Dyspnea: Some improvement, wheezes better today. Was very orthopnea today, but states that improved with breathing treatment. Difficulty with keeping an IV in had to be replaced several times, still pulled out due to pain. Medications had to be transitioned to oral. Discussed in case he is tolerating and continue to improve, perhaps can continue oral medications and return home, otherwise IV may need to be replaced. We also try to arrange oxygen for him as he qualifies for 2 L by nasal cannula, her, this cannot be arranged today and will need to be arranged tomorrow. COVID-19 also is still pending, with severe COVID-19 not yet entirely ruled out. COPD exacerbation. Possible CHF exacerbation. Little bit less likely possible pneumonia as per imaging, although otherwise no leukocytosis, afebrile. Procalcitonin not elevated, but can be low in atypical infection. Follow-up C OVID-19 PCR. Changed to cefdinir, doxycycline by mouth. IV steroid changed to prednisone. IV Lasix changed to oral Bumex. We will request repeat labs to follow-up CBC, renal function and other metabolic parameters as it appears labs could not be obtained last 2 days. Limited echocardiogram with normal ejection fraction, no regional wall motion abnormality. Mildly increased left atrial size. No pericardial effusion. Status: Acute Qualifiers: Dyspnea type: dyspnea on exertion Qualified Code(s): R06.00 - Dyspnea, unspecified (2) CAD (coronary artery disease): No chest pain or pressure. With a history of prior stents, does not describe chest pain even with his episodes of shortness of breath though is a diabetic. Had CT imaging at the [place] earlier this year with some coronary calcifications. Baseline and 2-hour troponin are consistent with prior values and with an unremarkable delta. Chr onically on aspirin, statin, Plavix and beta-blockade. Status: Chronic Qualifiers: Coronary Disease-Associated Artery/Lesion type: [place] artery [place] vs. transplanted heart: [place] heart Associated angina: without angina Qualified Code(s): I25.10 - Atherosclerotic heart disease of [place] coronary artery without angina pectoris (3) COPD (chronic obstructive pulmonary disease): Related to tobacco use, he denies current smoking. Not on chronic oxygen or steroids Status: Chronic Qualifiers: COPD type: emphysema Emphysema type: centrilobular Qualified Code(s): J43.2 - Centrilobular emphysema (4) Chronic kidney disease, stage III (moderate): Reassess renal function with diuresis. Creatinine has ranged from 1.6-2.0 over the last year. Status: Chronic Qualifiers: Chronic kidney disease stage 3 subtype: stage 3b (GFR 30-44) Qualified Code(s): N18.32 - Chronic kidney disease, stage 3b (5) Diabetes mellitus: Continue insulin. Insulin requiring, associated with current hyperglycemia, CKD and neuropathy. Status: Chronic Qualifiers: Diabetes mellitus type: type 2 Diabetes mellitus intermission coordinator insulin use: with intermission coordinator use Diabetes mellitus complication status: with kidney complications Diabetes mellitus complication detail: with chronic kidney disease Chronic kidney disease stage: stage 3 (moderate) Chronic kidney disease stage 3 subtype: stage 3b (GFR 30-44) Qualified Code(s): E11.21 - Type 2 diabetes mellitus with diabetic nephropathy; N18.32 - Chronic kidney disease, stage 3b; Z79.4 - prison (current) use of insulin (6) Hypertension: Blood pressure significantly improved. In addition to beta-blockade, patient is chronically on losartan and Lasix. 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 Coding Level of Care Code Acute Button Maker And Installer for [facility] [place] Diagnoses Dyspnea R06.00 Dyspnea type: dyspnea on exertion CAD (coronary artery disease) I25.10 Coronary Disease-Associated Artery/Lesion type: [place] artery [place] vs. transplanted heart: [place] heart Associated angina: without angina COPD (chronic obstructive pulmonary disease) J43.2 COPD type: emphysema Emphysema type: centrilobular Chronic kidney disease, stage III (moderate) N18.32 Chronic kidney disease stage 3 subtype: stage 3b (GFR 30-44) Diabetes mellitus E11.21; N18.32; Z79.4 Diabetes mellitus type: type 2 Diabetes mellitus correction insulin use: with correction use Diabetes mellitus complication status: with kidney complications Diabetes mellitus complication detail: with chronic kidney disease Chronic kidney disease stage: stage 3 (moderate) Chronic kidney disease stage 3 subtype: stage 3b (GFR 30-44) Hypertension I10 Hypertension type: essential hypertension Thrombocytopenia D69.6 Hepatitis C virus infection resolved after antiviral drug therapy Z86.19 Obesity (BMI 30.0-34.9) E66.9
--- NOTE | 2021-10-23 19:41 | PC.NURSE ---
Shift report received from Berenice RICHARDS. Patient in bed/awake/ watching TV. L BKA. No IV per report /MD Dr Lentz aware. Patient requesting breathing treatment/ RT Zane notified. No other needs voiced at this time.
[2021-10-23 21:12] LABS: Glucose Point of Care 318 mg/dL (70-110)
[2021-10-23] MEDS: insulin glargine 100 units/1 mL 7 UNIT SUBCUT (22:49)
--- NOTE | 2021-10-24 00:31 | PC.NURSE ---
Patient in bed / awake / watching TV. Denies pain or discomfort. No needs voiced at this time.
[2021-10-24 04:00] VITALS: BP 106/56; PULSE 61; RESP 17; TEMP 36.4; O2SAT 96
--- NOTE | 2021-10-24 04:04 | PC.NURSE ---
Patient in bed asleep / no s/s of pain or discomfort.
[2021-10-24 06:08] LABS: Basophils % 0.2 %; Eosinophils # 0.1 10^3/uL (0.0-0.8); Eosinophils % 0.9 %; Hematocrit 42.1 % (42.0-52.0); Hemoglobin 13.7 g/dL (11.7-16.6); Lymphocytes # 1.9 10^3/uL (0.8-4.8); Lymphocytes % 21.8 %; Mean Corpuscular HGB Conc 32.5 g/dL (30.0-36.0); Mean Corpuscular Hemoglobin 30.4 pg (28.0-34.0); Mean Corpuscular Volume 93.3 fl (80-94); Mean Platelet Volume 10.5 fL (7.4-10.4); Monocytes # 0.7 10^3/uL (0.2-0.9); Neutrophils # 5.92 10^3/uL (1.8-7.7); Neutrophils % 68.8 %; Nucleated Red Blood Cells % 0 %; Platelet Count 62 10^3/cmm (130-400); Red Blood Count 4.51 10^6/uL (4.1-5.3); Red Cell Distribution Width 14.6 % (12.1-15.1); White Blood Count 8.6 10^3/uL (4.0-10.0)
--- NOTE | 2021-10-24 06:27 | PC.NURSE ---
Patient c/o of generalized pain/ declines PRN tylenlol at this time.
[2021-10-24 06:28] LABS: Alanine Aminotransferase 16 U/L (0-41); Albumin Level 4.3 g/dL (3.5-5.2); Alkaline Phosphatase 40 IU/L (40-130); Aspartate Amino Transferase 17 U/L (0-40); Blood Urea Nitrogen 51 mg/dL (8-23); Calcium 9.2 mg/dL (8.5-10.5); Carbon Dioxide 21 mmol/L (22-29); Chloride 101 mmol/L (98-107); Globulin 2.4 g/dL (1.3-4.6); Glomerular Filtration Rate 35.9 mL/min (90-130); Glucose 207 mg/dL (65-115); Osmolality Calculated 308 mOsm/kg (285-295); Sodium 139 mmol/L (136-145); Total Bilirubin 0.4 mg/dL (0.15-1.2); Total Protein 6.7 g/dL (6.6-8.7)
[2021-10-24 06:30] LABS: Anion Gap 21.2 (5-19); Potassium 4.2 mmol/L (3.5-5.1)
[2021-10-24 06:39] LABS: Glucose Point of Care 163 mg/dL (70-110)
[2021-10-24 08:00] VITALS: BP 103/64; PULSE 60; RESP 18; TEMP 36.8; O2SAT 96
[2021-10-24] MEDS: ipratropium-albuterol 3 mL Neb INHALATION ×2 (08:05→15:57)
[2021-10-24] MEDS: cholecalciferol (vitamin D3) 1,000 unit Tablet 2000 UNIT PO (08:16)
[2021-10-24] MEDS: atorvastatin 40 mg Tablet 80 MG PO (08:16)
[2021-10-24] MEDS: cefdinir 300 MG CAPSULE PO (08:16)
[2021-10-24] MEDS: bumetanide 1 mg Tablet PO (08:16)
[2021-10-24] MEDS: levETIRAcetam 500 mg Tablet PO (08:16)
[2021-10-24] MEDS: docusate sodium 100 mg Capsule PO (08:16)
[2021-10-24] MEDS: potassium chloride ER 20 mEq Tablet PO (08:16)
[2021-10-24] MEDS: doxycycline 100 mg Tablet PO (08:16)
[2021-10-24] MEDS: losartan 50 mg Tablet PO (08:17)
[2021-10-24] MEDS: aspirin 81 mg Chew Tablet PO (08:17)
[2021-10-24] MEDS: tamsulosin 0.4 mg Capsule PO (08:17)
[2021-10-24] MEDS: metoprolol tartrate 50 mg Tablet 25 MG PO (08:17)
[2021-10-24] MEDS: escitalopram 10 mg Tablet 5 MG PO (08:17)
[2021-10-24] MEDS: predniSONE 20 mg Tablet 40 MG PO (08:17)
[2021-10-24] MEDS: insulin lispro 100 unit/1 mL SUBCUT ×2 (08:17→11:58)
[2021-10-24] MEDS: fluticasone nasal spray 16gm Btl 2 SPRAY INTRANASAL (08:17)
[2021-10-24 08:18] VITALS: PULSE 56; RESP 18; O2SAT 97
[2021-10-24 08:19] VITALS: PULSE 57; RESP 18; O2SAT 98
--- NOTE | 2021-10-24 10:36 | XR_ITS ---
WS: [id number] XR chest 1V portable 10800 REASON FOR EXAM: chf FINDINGS: Heart and mediastinum are within normal limits. Calcified granulomatous disease is seen bilaterally. Compared to 10/21/2021, the lower lobe interstitial changes have nearly completely resolved suggestin g resolving pulmonary edema. No other interval change or new finding is noted. XR/XR chest 1V portable [id number] IMPRESSION: Probable resolving pulmonary edema.
[2021-10-24] MEDS: levoFLOXacin 500 mg Tablet PO (10:52)
[2021-10-24] MEDS: clopidogrel 75 mg Tablet PO (10:53)
[2021-10-24] MEDS: ferrous sulfate EC 325 mg Tablet PO (10:53)
[2021-10-24] MEDS: pantoprazole DR 40 mg Tablet PO (10:53)
[2021-10-24 11:09] LABS: Iron 49 ug/dL (59-158); Percent Saturation 14.5 % (20-50); Total Iron Binding Capacity 337 mcg/dl; Unsaturated Iron Binding 288 ug/dL (112-347)
[2021-10-24 11:17] LABS: NT Pro B Type Natriuretic Pept 1107 pg/mL (0-125); Thyroid Stimulating Hormone 0.58 uIU/mL (0.27-4.20)
[2021-10-24 11:30] LABS: Estmated Average Glucose 128; Hemoglobin A1C 6.1 % (4.0-6.0)
[2021-10-24 11:39] VITALS: BP 105/67; PULSE 65; RESP 18; TEMP 36.7; O2SAT 94
[2021-10-24 11:40] LABS: Glucose Point of Care 197 mg/dL (70-110)
--- NOTE | 2021-10-24 13:46 | P.DS_ITS ---
Discharge Providers Date of Admission: 10/22/21 18:45 Date of Discharge: October 24, 2021 Attending Provider at Admission: Chanel Johnson MD Attending Provider at Discharge: Sujit Zhang MD Primary Care Provider: Fer Musa DO Diagnoses at Discharge Discharge Diagnosis (1) Dyspnea: Status: Acute Qualifiers: Dyspnea type: dyspnea on exertion Qualified Code(s): R06.00 - Dyspnea, unspecified (2) CAD (coronary artery disease): Status: Chronic Qualifiers: Coronary Disease-Associated Artery/Lesion type: [place] artery [place] v s. transplanted heart: [place] heart Associated angina: without angina Qualified Code(s): I25.10 - Atherosclerotic heart disease of [place] coronary artery without angina pectoris (3) COPD (chronic obstructive pulmonary disease): Status: Chronic Qualifiers: COPD type: emphysema Emphysema type: centrilobular Qualified Code(s): J43.2 - Centrilobular emphysema (4) Chronic kidney disease, stage III (moderate): Status: Chronic Qualifiers: Chronic kidney disease stage 3 subtype: stage 3b (GFR 30-44) Qualified Code(s): N18.32 - Chronic kidney disease, stage 3b (5) Diabetes mellitus: Status: Chronic Qualifiers: Diabetes mellitus type: type 2 Diabetes mellitus roasterman insulin use: with care home use Diabetes mellitus complication status: with kidney complications Diabetes mellitus complication detail: with chronic kidney disease Chronic kidney disease stage: stage 3 (moderate) Chronic kidney disease stage 3 subtype: stage 3b (GFR 30-44) Qualified Code(s): E11.21 - Type 2 diabetes mellitus with diabetic nephropathy; N18.32 - Chronic kidney disease, stage 3b; Z79.4 - assisted (current) use of insulin (6) Hypertension: Status: Chronic Qualifiers: Hypertension type: essential hypertension Qualified Code(s): I10 - Essential (primary) hypertension (7) Thrombocytopenia: Status: Chronic Permanent problem details: 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 C and splenomegaly (8) Hepatitis C virus infection resolved after antiviral drug therapy: Status: Chronic Permanent problem details: some early cirrhosis, HCC ruled out (9) Obesity (BMI 30.0-34.9): Status: Chronic Reason for Visit Reason for Visit: SOB/ GENERALIZED WEAKNESS Hospital Course Hospital Course Jeffrey Brown is a 66 year old male with past medical history of aortic regurgitation, CAD, CKD stage III, COPD, CVA, type 2 diabetes mellitus, COPD, hypertension, mitral regurgitation presented to the ER on October 21 with complaint of difficulty breathing along with nonproductive cough with increasing dyspnea on exertion for last 1 week. Patient has not been vaccinated for COVID- 19. On arrival patient was requiring up to 2 to 3 L of oxygen supplementation. Chest x-ray admission showed bilateral lower lobe infiltrates with a BNP of 1300. He was admitted to the hospital with concerns for hypoxia secondary to a combination of COPD exacerbation, congestive heart failure and possible pneumonia. During hospitalization patient was started on IV diuresis to which she responded well. Echocardiogram was done with results as below. He was started on nebulization treatment and oral steroids along with IV antibiotics. Blood cultures remain negative. Sputum culture could not be obtained. Patient required further hospitalization but he declined IV placement. Multiple attempts were made to convince the patient for the same. COVID-19 PCR is still pending. As patient has been noncompliant during hospitalization and declining multiple treatments even after multiple attempts he has been discharged in hemodynamically stable condition to home on oral antibiotics for next 5 days, oral steroids for next 5 days. His oral diuretic therapy has been changed. He is advised to continue wearing oxygen as per home O2 evaluation prior to discharge. Oxygen has been provided to him prior to discharge. He is advised to follow-up with his primary care provider within next 1 week for repeat BMP. Physical Exam Const: COMMON NORMALS: no acute distress and patient oriented x3 HENMT: COMMON NORMALS: oropharynx normal Neck/C-Spine: COMMON NORMALS: no JVD Resp: COMMON NORMALS: normal respiratory effort AUSCULTATION: no wheezes and diminished lung sounds (Diminished, but with mild improvement) Cardio: COMMON NORMALS: no JVD, regular rhythm, S1 normal heart sound present, S2 normal heart sound present and No murmurs present (Cardio) RHYTHM: regular rhythm HEART SOUNDS: S1 normal heart sound present and S2 normal heart sound present GI: COMMON NORMALS: Normal to inspection, nondistended, normoactive bowel sounds present, Soft to palpation and non-tender PALPATION: Yes Soft to palpation Extremity: COMMON NORMALS: no joint enlargement and no pedal edema Neuro: COMMON NORMALS: patient oriented x3 and moves all extremities Skin: COMMON NORMALS: no rashes or lesions noted GENERAL SKIN EXAM: no rashes or lesions noted Discharge Data Data Completed and Pending: Completed Studies During Hospitalization Category Date Time Status XR chest 1V benny ble [id number] Routine Exams 10/24/21 10:36 Completed XR chest 1V benny ble [id number] Urgent Exams 10/21/21 12:39 Completed CV. echo limited [id number] Routine Ultrasound 10/22/21 21:13 Completed Pending at discharge Category Date Time Status Complete Blood Co unt w/Auto AM LABS Lab 10/25/21 04:00 Ordered Complete Blood Co unt w/Auto AM LABS Lab 10/26/21 04:00 Ordered Comprehensive Met abolic Panel AM LA BS Lab 10/25/21 04:00 Ordered Comprehensive Met abolic Panel AM LA BS Lab 10/26/21 04:00 Ordered [facility] SARS-CoV-2 RNA Routine Lab 10/21/21 18:55 Received Sputum Culture an d Gram Stain Routi ne Lab 10/22/21 18:51 Uncollected Labs from last 24 hours 10/24/21 10/24/21 10/24/21 11:12 06:31 05:30 WBC RBC Hgb Hct MCV MCH MCHC RDW Plt Count MPV Neut % (Auto) Lymph % (Auto) [place] % (Auto) Eos % (Auto) Baso % (Auto) Neut # (Auto) Lymph # (Auto) [place] # (Auto) Eos # (Auto) Baso # (Auto) Nucleated RBC % (a uto) Nucleated RBCs # Sodium Potassium Chloride Carbon Dioxide Anion Gap BUN Creatinine GFR Calculation Glucose POC Glucose 197 H 163 H Estimat Average Gl ucose 128 Hemoglobin A1c 6.1 H Calculated Osmolal ity Calcium Iron TIBC % Saturation Unsat Iron Binding Total Bilirubin AST ALT Alkaline Phosphata se NT-Pro-B Natriuret Pep Total Protein Albumin Globulin TSH 10/24/21 10/24/21 10/24/21 05:30 05:30 05:30 WBC RBC Hgb Hct MCV MCH MCHC RDW Plt Count MPV Neut % (Auto) Lymph % (Auto) [place] % (Auto) Eos % (Auto) Baso % (Auto) Neut # (Auto) Lymph # (Auto) [place] # (Auto) Eos # (Auto) Baso # (Auto) Nucleated RBC % (a uto) Nucleated RBCs # Sodium 139 Potassium 4.2 Chloride 101 Carbon Dioxide 21 L Anion Gap 21.2 H BUN 51 H Creatinine 1.9 H GFR Calculation 35.9 L Glucose 207 H POC Glucose Estimat Average Gl ucose Hemoglobin A1c Calculated Osmolal ity 308 H Calcium 9.2 Iron 49 L TIBC 337 % Saturation 14.5 L Unsat Iron Binding 288 Total Bilirubin 0.4 AST 17 ALT 16 Alkaline Phosphata se 40 NT-Pro-B Natriuret Pep 1107 H Total Protein 6.7 Albumin 4.3 Globulin 2.4 TSH 0.58 10/24/21 10/23/21 10/23/21 05:30 21:07 16:56 WBC 8.6 RBC 4.51 Hgb 13.7 Hct 42.1 MCV 93.3 MCH 30.4 MCHC 32.5 RDW 14.6 Plt Count 62 L MPV 10.5 H Neut % (Auto) 68.8 Lymph % (Auto) 21.8 [place] % (Auto) 8.0 Eos % (Auto) 0.9 Baso % (Auto) 0.2 Neut # (Auto) 5.92 Lymph # (Auto) 1.9 [place] # (Auto) 0.7 Eos # (Auto) 0.1 Baso # (Auto) 0.0 Nucleated RBC % (a uto) 0 Nucleated RBCs # 0.0 Sodium Potassium Chloride Carbon Dioxide Anion Gap BUN Creatinine GFR Calculation Glucose POC Glucose 318 H 240 H Estimat Average Gl ucose Hemoglobin A1c Calculated Osmolal ity Calcium Iron TIBC % Saturation Unsat Iron Binding Total Bilirubin AST ALT Alkaline Phosphata se NT-Pro-B Natriuret Pep Total Protein Albumin Globulin TSH Addt'l Data from Hospital Stay: Laboratory Results WBC 8.6 10^3/uL (4.0- 10.0) 10/24/21 05:30 RBC 4.51 10^6/uL (4.1 -5.3) 10/24/21 05:30 Hgb 13.7 g/dL (11.7-1 6.6) 10/24/21 05:30 Hct 42.1 % (42.0-52.0 ) 10/24/21 05:30 MCV 93.3 fl (80-94) 10/24/21 05:30 MCH 30.4 pg (28.0-34. 0) 10/24/21 05:30 MCHC 32.5 g/dL (30.0-3 6.0) 10/24/21 05:30 RDW 14.6 % (12.1-15.1 ) 10/24/21 05:30 Plt Count 62 10^3/cmm (130- 400) L 10/24/21 05:30 MPV 10.5 fL (7.4-10.4 ) H 10/24/21 05:30 Neut % (Auto) 68.8 % 10/24/21 05:30 Lymph % (Auto) 21.8 % 10/24/21 05:30 [place] % (Auto) 8.0 % 10/24/21 05:30 Eos % (Auto) 0.9 % 10/24/21 05:30 Baso % (Auto) 0.2 % 10/24/21 05:30 Neut # (Auto) 5.92 10^3/uL (1.8 -7.7) 10/24/21 05:30 Lymph # (Auto) 1.9 10^3/uL (0.8- 4.8) 10/24/21 05:30 [place] # (Auto) 0.7 10^3/uL (0.2- 0.9) 10/24/21 05:30 Eos # (Auto) 0.1 10^3/uL (0.0- 0.8) 10/24/21 05:30 Baso # (Auto) 0.0 10^3/uL (0.0- 0.1) 10/24/21 05:30 Nucleated RBC % (a uto) 0 % 10/24/21 05:30 Nucleated RBCs # 0.0 /100WBC 10/24/21 05:30 D-Dimer 1.09 ug/mIFEU (0- 0.59) H 10/22/21 06:40 Specimen Type Arterial 10/21/21 13:04 Sample Site Radial, left 10/21/21 13:04 ABG pH 7.42 (7.35-7.45) 10/21/21 13:04 ABG pCO2 35.7 mmHg (35-45) 10/21/21 13:04 ABG pO2 85.2 mmHg (80.0-1 00.0) 10/21/21 13:04 ABG HCO3 23.0 mmol/L (22-2 6) 10/21/21 13:04 ABG Base Excess -1.1 mmol/L (-2.0 -2.0) 10/21/21 13:04 Mich Test Pos 10/21/21 13:04 Hematocrit 40.2 % (42-52) L 10/21/21 13:04 Hgb O2 Saturation 95.3 % (95-100) 10/21/21 13:04 Carboxyhemoglobin 1.5 %THgb (0.4-20 .1) 10/21/21 13:04 Methemoglobin 0.5 % (0.4-1.5) 10/21/21 13:04 Total Hemoglobin 13.1 g/dL (14-18) L 10/21/21 13:04 O2 Delivery Device Nc 10/21/21 13:04 O2 Liters/Min 2.0 % 10/21/21 13:04 FiO2 28.0 % 10/21/21 13:04 Biomechanical Engineer ID Darrenro 10/21/21 13:04 Sodium 139 mmol/L (136-1 45) 10/24/21 05:30 Potassium 4.2 mmol/L (3.5-5 .1) 10/24/21 05:30 Chloride 101 mmol/L (98-10 7) 10/24/21 05:30 Carbon Dioxide 21 mmol/L (22-29) L 10/24/21 05:30 Anion Gap 21.2 (5-19) H 10/24/21 05:30 BUN 51 mg/dL (8-23) H 10/24/21 05:30 Creatinine 1.9 mg/dL (0.7-1. 2) H 10/24/21 05:30 GFR Calculation 35.9 mL/min (90-1 30) L 10/24/21 05:30 Glucose 207 mg/dL (65-115 ) H 10/24/21 05:30 POC Glucose 197 mg/dL (70-110 ) H 10/24/21 11:12 Estimat Average Gl ucose 128 10/24/21 05:30 Hemoglobin A1c 6.1 % (4.0-6.0) H 10/24/21 05:30 Calculated Osmolal ity 308 mOsm/kg (285- 295) H 10/24/21 05:30 Calcium 9.2 mg/dL (8.5-10 .5) 10/24/21 05:30 Iron 49 ug/dL (59-158) L 10/24/21 05:30 TIBC 337 mcg/dl 10/24/21 05:30 % Saturation 14.5 % (20-50) L 10/24/21 05:30 Unsat Iron Binding 288 ug/dL (112-34 7) 10/24/21 05:30 Total Bilirubin 0.4 mg/dL (0.15-1 .2) 10/24/21 05:30 AST 17 U/L (0-40) 10/24/21 05:30 ALT 16 U/L (0-41) 10/24/21 05:30 Alkaline Phosphata se 40 IU/L (40-130) 10/24/21 05:30 Troponin T Baselin e 26 ng/L (0-15) H 10/21/21 14:20 Troponin T 120 Min darin 30.67 ng/L (0-15) H 10/21/21 16:12 Delta Troponin T 4.67 ABS# (0-10) 10/21/21 16:12 Troponin T Hi Sens 6Hr 23.16 ng/L (0-15) H 10/21/21 19:55 Troponin T Hi Sens 6Hr Delta -2.84 ng/L (0-12) L 10/21/21 19:55 C-Reactive Protein 3.8 mg/L (0.0-4.9 ) 10/21/21 14:20 NT-Pro-B Natriuret Pep 1107 pg/mL (0-125 ) H 10/24/21 05:30 Total Protein 6.7 g/dL (6.6-8.7 ) 10/24/21 05:30 Albumin 4.3 g/dL (3.5-5.2 ) 10/24/21 05:30 Globulin 2.4 g/dL (1.3-4.6 ) 10/24/21 05:30 Procalcitonin 0.04 ng/mL (0-0.5 ) 10/21/21 14:20 TSH 0.58 uIU/mL (0.27 -4.20) 10/24/21 05:30 SARS-CoV-2 Ag (Rap id) Negative (Negati ve) 10/21/21 12:10 Impressions Chest X-Ray 10/24/21 10:36 IMPRESSION: Probable resolving pulmonary edema. Echocardiogram: CONCLUSIONS Normal left ventricular size and systolic function, EF 65 %. No regional wall motion abnormalities. Mildly increased left atrial size. Thickened aortic valve. Thickened mitral valve. Moderate mitral annular calcification. There is no pericardial effusion. There are no intracardiac masses. No previous study is available for comparison. Dr Sudeep Cotto MD [facility] (Electronically Signed) Final Date: 22 October 2021 Vitals: Last Vital Signs Temp 98.1 F 10/24/21 11:39 Pulse 65 10/24/21 11:39 Resp 18 10/24/21 11:39 BP 105/67 10/24/21 11:39 Pulse Ox 94 10/24/21 11:39 Discharge Plan Discharge Patient Disposition: Home Condition: Stable Prescriptions: New prednisone 20 mg Tablet 40 mg PO DAILY 5 Days Qty: 10 RF: 0 levofloxacin 500 mg Tablet 500 mg PO Q48H 4 Days Qty: 2 RF: 0 cefdinir 300 mg Capsule 300 mg PO BID 5 Days Qty: 10 RF: 0 Continued Stiolto Respimat 2.5-2.5 mcg/actuation mist 2 puff inhalation DAILY Qty: 4 RF: 3 escitalopram oxalate 10 mg Tablet 5 mg PO DAILY Qty: 30 RF: 0 atorvastatin 80 mg Tablet 80 mg PO DAILY@1999 RF: 0 ferrous sulfate 325 mg (65 mg iron) Tablet 325 mg PO DAILY@1100 RF: 0 omeprazole 20 mg Capsule,Delayed Release(Dr/Ec) 40 mg PO DAILY@1099 RF: 0 Multi-Vitamin HP/Minerals Capsule 1 cap PO DAILY@1099 RF: 0 cholecalciferol (vitamin D3) 2,000 unit Tablet 2,000 unit PO DAILY@1100 RF: 0 losartan 100 mg tablet 50 mg PO DAILY@1099 RF: 0 pentoxifylline 400 mg tablet extended release 400 mg PO TID RF: 0 senna 8.6 mg Capsule 8.6 mg PO DAILY PRN (Reason: Constipation) RF: 0 metoprolol tartrate 50 mg tablet 25 mg PO BID@1099,1999 RF: 0 levetiracetam [Keppra] 500 mg tablet 500 mg PO BID Qty: 60 RF: 0 aspirin 81 mg Tablet,Chewable 81 mg PO DAILY RF: 0 ipratropium-albuterol 0.5 mg-3 mg(2.5 mg base)/3 mL Solution For Nebulization 3 ml inhalation Q6H PRN (Reason: Shortness Of Breath) Qty: 60 RF: 0 Lantus Solostar U-100 Insulin 100 unit/mL (3 mL) insulin pen 17 unit SUBCUT DAILY@1700 RF: 0 clopidogrel [Plavix] 75 mg Tablet 75 mg PO DAILY@1100 RF: 0 albuterol sulfate 90 mcg/actuation Hfa Aerosol Inhaler 2 puff INHALATION Q4H PRN (Reason: Shortness Of Breath) RF: 0 insulin aspart U-100 [Novolog Flexpen U-100 Insulin] 100 unit/mL (3 mL) Insulin Pen 10 unit SUBCUT TIDWM RF: 0 tamsulosin 0.4 mg capsule 0.4 mg PO BID@1100,2000 RF: 0 fluticasone propionate 50 mcg/actuation [place],Suspension 2 spray INTRANASAL DAILY RF: 0 Changed Lasix 20 mg tablet 40 mg PO DAILY 30 Days Qty: 60 RF: 0 Discontinued ibuprofen 200 mg Tablet 600 mg PO Q6H PRN (Reason: Pain) RF: 0 Discharge Orders: Discharge Order (Routine); Ordered 10/24/21 Ordered By: Sujit Zhang Other Ambulatory Orders: DME: Oxygen (Order) Location: None Selected Ordered By: Pasquale Lentz Referrals: Fer Musa DO [Primary Care Provider] - 7-10 days Discharge Diet: Cardiac and Diabetic Discharge Activity: Resume usual activity Patient Instructions: Opioid Safety Activity Restrictions/Additional Instructions: Dose of Lasix has been increased to 40 mg daily. Please follow-up with your primary care provider within next 1 week for repeat BMP. Please check your body weight at home. If your body weight increases by 5 pounds over a period of 1 week you can take an extra tablet of Lasix. You are on 2 antibiotics for next 5 days. Cefdinir is to be taken for next 5 days, levofloxacin is to be taken every other day for next 5 days. Prednisone for next 5 days. Discharge Attestations Time Spent in Discharge Care*: greater than 30 min Specific Discharge Activities: educating patient, discussing with pcp/other providers, discussing with caseworker protective services/social workers/dc planners, documenting/other paperwork and evaluating patient/reviewing data Status at Discharge: Cognitive status at discharge: cognitively intact , Behavioral status at discharge: cooperative and can be uncooperative , Functional status at discharge: independent ambulation Overall status at discharge: patient is progressing back to baseline Quality Metrics Clinical Quality Measures During this hospital stay, did patient experience: None Coding Level of Care Code Acute Chg FW DC note Diagnoses Dyspnea R06.00 Dyspnea type: dyspnea on exertion CAD (coronary artery disease) I25.10 Coronary Disease-Associated Artery/Lesion type: [place] artery [place] vs. transplanted heart: [place] heart Associated angina: without angina COPD (chronic obstructive pulmonary disease) J43.2 COPD type: emphysema Emphysema type: centrilobular Chronic kidney disease, stage III (moderate) N18.32 Chronic kidney disease stage 3 subtype: stage 3b (GFR 30-44) Diabetes mellitus E11.21; N18.32; Z79.4 Diabetes mellitus type: type 2 Diabetes mellitus roasterman insulin use: with roasterman use Diabetes mellitus complication status: with kidney complications Diabetes mellitus complication detail: with chronic kidney disease Chronic kidney disease stage: stage 3 (moderate) Chronic kidney disease stage 3 subtype: stage 3b (GFR 30-44) Hypertension I10 Hypertension type: essential hypertension Thrombocytopenia D69.6 Hepatitis C virus infection resolved after antiviral drug therapy Z86.19 Obesity (BMI 30.0-34.9) E66.9
[2021-10-24 16:06] VITALS: BP 105/67; PULSE 65; RESP 18; TEMP 36.7; O2SAT 94
[2021-10-25 12:23] LABS: Quest SARS-CoV-2 RNA NOT DETECTED (NOT DETECTED)
== END 2021-10-24 16:09 | disposition home or self-care (01) | DRG 191 ==
LOC: ER 18:16 → MEDSURG 20:35
PROVIDERS: Internal Medicine; Admitting Provider Hospitalist; Emergency Provider Emergency Medicine; PCP Emergency Medicine Emergency Medical Services; Visit Provider Student in an Organized Health Care Education/Training Program
DX: J43.2 Centrilobular emphysema (principal); I13.0 Hypertensive heart and chronic kidney disease with heart failure and stage 1 through stage 4 chronic kidney disease, or unspecified chronic kidney disease; I25.10 Atherosclerotic heart disease of native coronary artery without angina pectoris; N18.32 Chronic kidney disease, stage 3b; E11.21 Type 2 diabetes mellitus with diabetic nephropathy; Z79.4 Long term (current) use of insulin; E11.22 Type 2 diabetes mellitus with diabetic chronic kidney disease; Z86.19 Personal history of other infectious and parasitic diseases; E66.9 Obesity, unspecified; Z68.33 Body mass index [BMI] 33.0-33.9, adult; Z87.891 Personal history of nicotine dependence; E78.5 Hyperlipidemia, unspecified; F32.A Depression, unspecified; Z79.82 Long term (current) use of aspirin; Z79.02 Long term (current) use of antithrombotics/antiplatelets; Z86.718 Personal history of other venous thrombosis and embolism; Z86.73 Personal history of transient ischemic attack (TIA), and cerebral infarction without residual deficits; Z89.612 Acquired absence of left leg above knee; Z91.19 Patient's noncompliance with other medical treatment and regimen; D69.6 Thrombocytopenia, unspecified; Z87.440 Personal history of urinary (tract) infections; N40.0 Benign prostatic hyperplasia without lower urinary tract symptoms; K21.9 Gastro-esophageal reflux disease without esophagitis; E11.51 Type 2 diabetes mellitus with diabetic peripheral angiopathy without gangrene; G25.3 Myoclonus; I50.9 Heart failure, unspecified
CPT/HCPCS: 36415; 36416; 36600; 71045; 80053; 82805; 82962; 83036; 83540; 83550; 83880; 84145; 84443; 84484; 85025; 85378; 86140; 87426; 87635; 93005; 93308; 94640; 96365; 96367; 96372; 99285; G0378; J0696; J1815 ×2; J1940; J2920; J3490; J7512

== ENCOUNTER 2022-01-19 10:51 | Emergency (ER) | payer OTHER, SELFPAY ==
[2022-01-19 11:01] VITALS: BP 148/64; PULSE 73; RESP 18; TEMP 36.8; O2SAT 94; BMI 34.7
--- NOTE | 2022-01-19 11:35 | XR_ITS ---
WS: [id number] Portable AP upright chest, 01/19/2022 Clinical Data: dyspnea/cough Comparison: Portable chest, 10/24/2021. Findings: No nodules, masses or effusions are seen. The heart is slightly enlarged. The pulmonary vas cularity is not increased. No pneumonia or pneumothorax is seen. The diaphragms are flattened. XR/XR chest 1V portable [id number] Impression: Cardiomegaly and atherosclerosis.
--- NOTE | 2022-01-19 12:13 | W.ED.SOB ---
HPI - SOB/Dyspnea General: Chief Complaint: Shortness of Breath/Dyspnea Stated Complaint: SOB Time Seen by Provider: 01/19/22 11:33 Source: patient Mode of arrival: ambulatory Limitations: no limitations History of Present Illness: HPI Narrative: Morbidly obese 66-year-old male presents emergency room complaining of shortness of breath for last 2 days mildly productive cough. States the dyspnea is worse when he bends over or when he exerts himself. He has had some productive cough with mucus production he denies any chest pain. He has a known history of coronary disease with previous angioplasty with stents he also has a history of peripheral artery disease with an [id number] amputation on the left. History of COPD for which she is on inhaled medications he last used albuterol last evening. He denies any fever. MD elicited complaint: shortness of breath and cough Pertinent past history: COPD Onset (ago): day(s) (2) Timing: constant Severity: mild Exacerbating factors: nothing Relieving factors: nothing Known history of: COPD Associated symptoms: Reports chest congestion, cough and myalgias; Deny abdominal pain, chest pain, diaphoresis, dizziness, extremity pain, fever(s), hemoptysis, lightheadedness, nausea, orthopnea, palpitations, paresthesias, polydipsia, polyuria, rash, sense of impending doom, syncope or vomiting Treatment prior to arrival: bronchodilator Review of Systems Const: Denies: fever(s) or diaphoresis ENMT: Denies: throat pain, ear or mastoid pain, nasal discharge or nasal congestion Card: Denies: chest pain, palpitations, lightheadedness, syncope or orthopnea Resp: Reports: chest congestion; Denies: hemoptysis GI: Denies: abdominal pain, nausea or vomiting : Denies: flank pain, dysuria, urinary frequency or urinary urgency Musc: Denies: extremity pain Skin/Breast: Denies: rash or pruritus Neuro: Denies: dizziness Endo: Denies: polyuria or polydipsia PFS ED PFSH: Medical History Aortic regurgitation Benign prostatic hyperplasia CAD (coronary artery disease) Cervical disc disorder with myelopathy of mid-cervical region Chronic kidney disease, stage III (moderate) Claustrophobia COPD (chronic obstructive pulmonary disease) COPD (chronic obstructive pulmonary disease) Coronary artery calcification CVA (cerebral vascular accident) (~01/2021) clinical diagnosis with dysarthria and confusion, unremarkable work up but unable to perform MRI due to severe claustrophobia Degenerative joint disease of left shoulder Degenerative lumbar disc Depression hospitalization 04/2021 Diabetes mellitus Facet arthropathy, lumbar Frequent UTI Hepatitis C virus infection resolved after antiviral drug therapy some early cirrhosis, HCC ruled out History of DVT (deep vein thrombosis) (~12/2018) History of PFTs (~01/2021) moderate obstructive ventilatory defect, significant response to bronchodilators. Lung volumes suggestive of mild air trapping. Mild reduction in gas transfer. 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 Pets and animals: No Current gender identity: Male Physical Exam Const: GENERAL APPEARANCE: cooperative and comfortable ORIENTATION/CONSCIOUSNESS: Yes awake, Yes oriented to person, Yes oriented to place and Yes oriented to time HENMT: COMMON NORMALS: normocephalic, atraumatic and hearing grossly normal bilaterally HEAD & SCALP: normocephalic and atraumatic Neck/C-Spine: COMMON NORMALS: no JVD Resp: COMMON NORMALS: normal respiratory effort, No retractions, No use of accessory muscles and clear to auscultation bilaterally AUSCULTATION: clear to auscultation bilaterally Cardio: COMMON NORMALS: no JVD, regular rate, regular rhythm and No murmurs present (Cardio) RATE: regular rate RHYTHM: regular rhythm GI: COMMON NORMALS: Soft to palpation and No hepatosplenomegaly present AUSCULTATION: Yes normoactive bowel sounds PALPATION: Yes Soft to palpation, No Tenderness to palpation present (GI), No Guarding due to palpation present (GI) and Yes No hepatosplenomegaly present Extremity: COMMON NORMALS: normal to inspection, capillary refill normal, no clubbing, cyanosis or edema, no calf tenderness and no pedal edema Neuro: SENSORIUM/ORIENTATION: Yes oriented to person, Yes oriented to place and Yes oriented to time Skin: COMMON NORMALS: no rashes or lesions noted GENERAL SKIN EXAM: no rashes or lesions noted Course Vital Signs: Vital signs: Vital Signs Temperature 98.2 F 01/19/22 11:01 Pulse Rate 63 01/19/22 12:47 Respiratory Rate 17 01/19/22 12:41 Blood Pressure 148/64 01/19/22 11:01 Pulse Oximetry 92 01/19/22 12:41 MDM - SOB/Dyspnea Medical Decision Making Patient has exacerbation COPD is doing better after nebulizer discharged home on steroid taper and Medrol Dosepak if he has any worsening change symptoms return. Use albuterol regularly. Medical Records I reviewed the patient's medical records. Lab Data I reviewed the patient's lab results. : 01/19/22 12:33 01/19/22 12:33 Labs/Radiology: Radiology Impressions Chest X-Ray 01/19/22 11:35 Impression: Cardiomegaly and atherosclerosis. Laboratory Results WBC 7.1 10^3/uL (4.0-10.0) 01/19/22 12:33 RBC 4.40 10^6/uL (4.1-5.3) 01/19/22 12:33 Hgb 13.3 g/dL (11.7-16.6) 01/19/22 12:33 Hct 42.5 % (42.0-52.0) 01/19/22 12:33 MCV 96.6 fl (80-94) H 01/19/22 12:33 MCH 30.2 pg (28.0-34.0) 01/19/22 12: MCHC 31.3 g/dL (30.0-36.0) 01/19/22 12: RDW 13.4 % (12.1-15.1) 01/19/22 12:33 Plt Count 97 10^3/cmm (130-400) L 01/19/22 12: MPV 9.8 fL (7.4-10.4) 01/19/22 12: Neut % (Auto) 70.7 % 01/19/22 12: Lymph % (Auto) 20.8 % 01/19/22 12: [place] % (Auto) 5.1 % 01/19/22 12: Eos % (Auto) 3.0 % 01/19/22 12: Baso % (Auto) 0.3 % 01/19/22 12: Neut # (Auto) 5.00 10^3/uL (1.8-7.7) 01/19/22 12: Lymph # (Auto) 1.5 10^3/uL (0.8-4.8) 01/19/22 12: [place] # (Auto) 0.4 10^3/uL (0.2-0.9) 01/19/22 12: Eos # (Auto) 0.2 10^3/uL (0.0-0.8) 01/19/22 12: Baso # (Auto) 0.0 10^3/uL (0.0-0.1) 01/19/22 12: Nucleated RBC % (auto) 0 % 01/19/22 12: Nucleated RBCs # 0.0 /100WBC 01/19/22 12:33 Specimen Type Arterial 01/19/22 12:38 Sample Site Radial, right 01/19/22 12:38 ABG pH 7.46 (7.35-7.45) H 01/19/22 12:38 ABG pCO2 34.8 mmHg (35-45) L 01/19/22 12:38 ABG pO2 72.2 mmHg (80.0-100.0) L 01/19/22 12:38 ABG HCO3 24.5 mmol/L (22-26) 01/19/22 12:38 ABG O2 Saturation 95.4 01/19/22 12:38 ABG Base Excess 0.9 mmol/L (-2.0-2.0) 01/19/22 12:38 Mich Test Pos 01/19/22 12:38 A-a O2 Gradient 4.4 mmHg (5-10) L 01/19/22 12:38 Hematocrit 41.0 % (42-52) L 01/19/22 12:38 Hgb O2 Saturation 93.5 % (95-100) L 01/19/22 12:38 Carboxyhemoglobin 1.4 %THgb (0.4-20.1) 01/19/22 12:38 Methemoglobin 0.6 % (0.4-1.5) 01/19/22 12:38 Total Hemoglobin 13.4 g/dL (14-18) L 01/19/22 12:38 Sodium 142.0 mmol/L (131-143) 01/19/22 12:38 Potassium 3.7 mmol/L (3.5-5.0) 01/19/22 12:38 Glucose 157.0 mg/dL (70-115) H 01/19/22 12:38 Ionized Calcium 1.2 mmol/L (1.1-1.4) 01/19/22 12:38 O2 Delivery Device Room air 01/19/22 12:38 FiO2 21.0 % 01/19/22 12:38 Guard Lieutenant ID Darrenro 01/19/22 12:38 Sodium 138 mmol/L (136-145) 01/19/22 12:33 Potassium 3.9 mmol/L (3.5-5.1) 01/19/22 12:33 Chloride 105 mmol/L (98-107) 01/19/22 12:33 Carbon Dioxide 21 mmol/L (22-29) L 01/19/22 12:33 Anion Gap 15.9 (5-19) 01/19/22 12:33 BUN 22 mg/dL (8-23) 01/19/22 12:33 Creatinine 1.5 mg/dL (0.7-1.2) H 01/19/22 12:33 GFR Calculation 47.1 mL/min (90-130) L 01/19/22 12:33 Glucose 169 mg/dL (65-115) H 01/19/22 12:33 Calculated Osmolality 293 mOsm/kg (285-295) 01/19/22 12:33 Calcium 9.1 mg/dL (8.5-10.5) 01/19/22 12:33 Total Bilirubin 1.2 mg/dL (0.15-1.2) 01/19/22 12:33 AST 16 U/L (0-40) 01/19/22 12:33 ALT 10 U/L (0-41) 01/19/22 12:33 Alkaline Phosphatase 45 IU/L (40-130) 01/19/22 12:33 Total Protein 6.9 g/dL (6.6-8.7) 01/19/22 12:33 Albumin 3.7 g/dL (3.5-5.2) 01/19/22 12:33 Globulin 3.2 g/dL (1.3-4.6) 01/19/22 12:33 Discharge Plan Discharge Patient Disposition: Home Clinical Impression: Acute exacerbation of chronic obstructive airways disease Condition: Stable Prescriptions: New doxycycline hyclate 100 mg capsule 100 mg PO BID 10 Days Qty: 20 0RF methylprednisolone [Medrol ([place])] 4 mg tablets,dose pack See Rx Instructions .ROUTE .COMPLEX Qty: 21 0RF Rx Instructions: orally per package directions No Action amlodipine 5 mg tablet 5 mg PO DAILY Qty: 90 3RF Stiolto Respimat 2.5-2.5 mcg/actuation mist 2 puff inhalation DAILY Qty: 4 3RF escitalopram oxalate 10 mg Tablet 5 mg PO DAILY Qty: 30 0RF atorvastatin 80 mg Tablet 80 mg PO QPM 0RF ferrous sulfate 325 mg (65 mg iron) Tablet 325 mg PO DAILY@1100 0RF omeprazole 20 mg Capsule,Delayed Release(Dr/Ec) 40 mg PO DAILY@1100 0RF Multi-Vitamin HP/Minerals Capsule 1 cap PO DAILY@1100 0RF cholecalciferol (vitamin D3) 2,000 unit Tablet 2,000 unit PO DAILY@1100 0RF losartan 100 mg tablet 50 mg PO DAILY@1100 0RF pentoxifylline 400 mg tablet extended release 400 mg PO TID 0RF senna 8.6 mg Capsule 8.6 mg PO DAILY PRN (Reason: Constipation) 0RF metoprolol tartrate 50 mg tablet 25 mg PO BID@1100,1999 0RF levetiracetam [Keppra] 500 mg tablet 500 mg PO BID Qty: 60 0RF aspirin 81 mg Tablet,Chewable 81 mg PO DAILY 0RF ipratropium-albuterol 0.5 mg-3 mg(2.5 mg base)/3 mL Solution For Nebulization 3 ml inhalation Q6H PRN (Reason: Shortness Of Breath) Qty: 60 0RF clopidogrel [Plavix] 75 mg Tablet 75 mg PO DAILY@1100 0RF albuterol sulfate 90 mcg/actuation Hfa Aerosol Inhaler 2 puff INHALATION Q4H PRN (Reason: Shortness Of Breath) 0RF insulin aspart U-100 [Novolog Flexpen U-100 Insulin] 100 unit/mL (3 mL) Insulin Pen 17 unit SUBCUT BEDTIME PRN (Reason: blood sugar) 0RF Label Comments: pt states he uses 17 units hs prn along with his lantus-[facility] 10 units as directed but shows its Lantus Solostar U-100 Insulin 100 unit/mL (3 mL) insulin pen 17 unit SUBCUT BEDTIME 0RF tamsulosin 0.4 mg capsule 0.4 mg PO BID@1100,2000 0RF fluticasone propionate 50 mcg/actuation [place],Suspension 2 spray INTRANASAL DAILY PRN (Reason: Allergy Symptoms) 0RF furosemide [Lasix] 20 mg tablet 20 mg PO QAM PRN (Reason: Edema) 0RF sofosbuvir 400 mg Tablet 400 mg PO DAILY 0RF ipratropium-albuterol 0.5 mg-3 mg(2.5 mg base)/3 mL solution for nebulization 3 ml inhalation Q4H PRN (Reason: shortness of breath or wheezing) Qty: 180 0RF Rx Instructions: until breathing returns to target peak flow/parameters Discharge Orders: Discharge ED (Routine); Ordered 01/19/22 Ordered By: Rich Jara Referrals: Fer Musa, [Primary Care Provider] - Patient Instructions: Opioid Safety Activity Restrictions/Additional Instructions: Follow-up with your primary care doctor within the week return if you have further worsening problems. Coding Level of Care Code ED Typo Machine Operator for [place] 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
[2022-01-19 12:41] VITALS: PULSE 63; RESP 17; O2SAT 92
[2022-01-19] MEDS: ipratropium-albuterol 3 mL Neb INHALATION (12:41)
[2022-01-19 12:47] VITALS: PULSE 63
[2022-01-19 12:49] LABS: ABG PCO2 34.8 mmHg (35-45); ABG PH Result 7.46 (7.35-7.45); Alveolar-Arterial Oxygen Gradi 4.4 mmHg (5-10); Base Excess ABG 0.9 mmol/L (-2.0-2.0); Blood Gas Allen Test Pos; Blood Gas Operator Identificat MONRO; Blood Gas Sample Site Radial, right; Blood Gas Sample Type Arterial; Carboxyhemoglobin 1.4 %THgb (0.4-20.1); HCO3 ABG 24.5 mmol/L (22-26); HGB O2 Sat 93.5 % (95-100); Ionized Calcium Level - ABG 1.2 mmol/L (1.1-1.4); Methemoglobin 0.6 % (0.4-1.5); Oxygen Device ROOM AIR; Oxygen Saturation ABG 95.4; PO2 ABG 72.2 mmHg (80.0-100.0); Potassium Level - ABG 3.7 mmol/L (3.5-5.0); Total Hemoglobin 13.4 g/dL (14-18)
--- NOTE | 2022-01-19 12:59 | PC.PHAR ---
Addendum entered by Katia Shankar 01/19/22 13:03: pts [facility] med [facility] shows novolog 10 units as directed [facility] has medication as Original Note: pt states he takes care of his own medications-pt states not taken for lasix for 3 weeks-medication on pts [facility] med list as active-pt states didnt get when he refilled his medication and hasnt been taking-notes are in the pharmacy comments-pt states he uses his novolog 17 units hs prn along with his lantus 17 units bedtime
[2022-01-19 13:02] LABS: Basophils % 0.3 %; Eosinophils # 0.2 10^3/uL (0.0-0.8); Hematocrit 42.5 % (42.0-52.0); Hemoglobin 13.3 g/dL (11.7-16.6); Lymphocytes # 1.5 10^3/uL (0.8-4.8); Lymphocytes % 20.8 %; Mean Corpuscular HGB Conc 31.3 g/dL (30.0-36.0); Mean Corpuscular Hemoglobin 30.2 pg (28.0-34.0); Mean Corpuscular Volume 96.6 fl (80-94); Mean Platelet Volume 9.8 fL (7.4-10.4); Monocytes # 0.4 10^3/uL (0.2-0.9); Monocytes % 5.1 %; Neutrophils % 70.7 %; Nucleated Red Blood Cells % 0 %; Platelet Count 97 10^3/cmm (130-400); Red Cell Distribution Width 13.4 % (12.1-15.1); White Blood Count 7.1 10^3/uL (4.0-10.0)
[2022-01-19 13:21] LABS: Alanine Aminotransferase 10 U/L (0-41); Albumin Level 3.7 g/dL (3.5-5.2); Alkaline Phosphatase 45 IU/L (40-130); Anion Gap 15.9 (5-19); Aspartate Amino Transferase 16 U/L (0-40); Blood Urea Nitrogen 22 mg/dL (8-23); Calcium 9.1 mg/dL (8.5-10.5); Carbon Dioxide 21 mmol/L (22-29); Chloride 105 mmol/L (98-107); Globulin 3.2 g/dL (1.3-4.6); Glomerular Filtration Rate 47.1 mL/min (90-130); Glucose 169 mg/dL (65-115); Osmolality Calculated 293 mOsm/kg (285-295); Potassium 3.9 mmol/L (3.5-5.1); Sodium 138 mmol/L (136-145); Total Bilirubin 1.2 mg/dL (0.15-1.2); Total Protein 6.9 g/dL (6.6-8.7)
== END 2022-01-19 14:17 | disposition home or self-care (01) ==
PROVIDERS: Emergency Provider Family Medicine; PCP Emergency Medicine Emergency Medical Services
DX: J44.1 Chronic obstructive pulmonary disease with (acute) exacerbation (principal); Z79.02 Long term (current) use of antithrombotics/antiplatelets; Z79.82 Long term (current) use of aspirin; Z79.4 Long term (current) use of insulin; I25.10 Atherosclerotic heart disease of native coronary artery without angina pectoris; I12.9 Hypertensive chronic kidney disease with stage 1 through stage 4 chronic kidney disease, or unspecified chronic kidney disease; E11.22 Type 2 diabetes mellitus with diabetic chronic kidney disease; N18.30 Chronic kidney disease, stage 3 unspecified; Z86.73 Personal history of transient ischemic attack (TIA), and cerebral infarction without residual deficits; Z86.19 Personal history of other infectious and parasitic diseases; Z89.612 Acquired absence of left leg above knee; Z87.891 Personal history of nicotine dependence
CPT/HCPCS: 36600; 71045; 80051; 80053; 82330; 82805; 85025; 94640; 96374; 99283; J2930

== ENCOUNTER 2022-01-23 10:25 | Emergency (ER) | payer OTHER, SELFPAY ==
[2022-01-23] VITALS (7 sets, daily range): BP systolic 116–195; BP diastolic 73–90; PULSE 55–82; RESP 18–24; TEMP 36.4; O2SAT 88–92; BMI 34.7
--- NOTE | 2022-01-23 10:38 | ED_ITS ---
HPI - SOB/Dyspnea General: Chief Complaint: Shortness of Breath/Dyspnea Stated Complaint: SOB Time Seen by Provider: 01/23/22 10:29 Source: patient Mode of arrival: ambulatory Limitations: no limitations History of Present Illness: HPI Narrative: 66-year-old male presents emergency room with increasing cough and congestion over the last few weeks we see him last week 7 some prednisone doxycycline he still having similar symptoms he is using occasional nebulizer. He is not had any fever sweats or chills. He denies any chest pain. No hemoptysis. MD elicited complaint: shortness of breath and cough Pertinent past history: COPD Onset (ago): day(s) Context: occurred during exertion Timing: constant Severity: moderate Exacerbating factors: exertion and stress Relieving factors: oxygen, rest and bronchodilators Associated symptoms: Reports chest congestion and cough; Deny abdominal pain, chest pain, diaphoresis, dizziness, extremity pain, fever(s), hemoptysis, lightheadedness, myalgias, nausea, orthopnea, palpitat ions, paresthesias, polydipsia, polyuria, rash, sense of impending doom, syncope or vomiting Treatment prior to arrival: bronchodilator Review of Systems Const: Denies: fever(s) or diaphoresis ENMT: Denies: throat pain, ear or mastoid pain, nasal discharge or nasal armida estion Card: Denies: chest pain, palpitations, lightheadedness, syncope or orthopnea Resp: Reports: chest congestion; Denies: hemoptysis GI: Denies: abdominal pain, nausea or vomiting : Denies: flank pain, dysuria, urinary frequency or urinary urgency Musc: Denies: extremity pain Skin/Breast: Denies: rash or pruritus Neuro: Denies: dizziness Endo: Denies: polyuria or polydipsia PFS ED PFSH: Medical History Aortic regurgitation Benign prostatic hyperplasia CAD (coronary artery disease) Cervical disc disorder with myelopathy of mid-cervical region Chronic kidney disease, stage III (moderate) Claustrophobia COPD (chronic obstructive pulmonary disease) COPD (chronic obstructive pulmonary disease) Coronary artery calcification CVA (cerebral vascular accident) (~01/2021) clinical diagnosis with dysarthria and confusion, unremarkable work up but unable to perform MRI due to severe claustrophobia Degenerative joint disease of left shoulder Degenerative lumbar disc Depression hospitalization 04/2021 Diabetes mellitus Facet arthropathy, lumbar Frequent UTI Hepatitis C virus infection resolved after antiviral drug therapy some early cirrhosis, HCC ruled out History of DVT (deep vein thrombosis) (~12/2018) History of PFTs (~01/2021) moderate obstructive ventilatory defect, significant response to bronchodilators. Lung volumes suggestive of mild air trapping. Mild reduction in gas transfer. 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 Pets and animals: No Current gender identity: Male Physical Exam Const: COMMON NORMALS: no acute distress GENERAL APPEARANCE: cooperative and comfortable ORIENTATION/CONSCIOUSNESS: Yes awake, Yes oriented to person, Yes oriented to place and Yes oriented to time HENMT: COMMON NORMALS: normocephalic, atraumatic and hearing grossly normal bilaterally HEAD & SCALP: normocephalic and atraumatic Neck/C-Spine: COMMON NORMALS: no JVD Resp: COMMON NORMALS: No use of accessory muscles AUSCULTATION: rhonchi and wheezes Cardio: COMMON NORMALS: no JVD, regular rate, regular rhythm and No murmurs present (Cardio) RATE: regular rate RHYTHM: regular rhythm GI: COMMON NORMALS: Soft to palpation and No hepatosplenomegaly present AUSCULTATION: Yes normoactive bowel sounds PALPATION: Yes Soft to palpation, No Tenderness to palpation present (GI), No Guarding due to palpation present (GI) and Yes No hepatosplenomegaly present Extremity: COMMON NORMALS: normal to inspection, capillary refill normal, no clubbing, cyanosis or edema, no calf tenderness and no pedal edema Neuro: SENSORIUM/ORIENTATION: Yes oriented to person, Yes oriented to place and Yes oriented to time Skin: COMMON NORMALS: no rashes or lesions noted GENERAL SKIN EXAM: no rashes or lesions noted Course Vital Signs: Vital signs: Vital Signs Temperature 97.6 F 01/23/22 10:30 Pulse Rate 63 01/23/22 15:28 Respiratory Rate 20 H 01/23/22 15:28 Blood Pressure 116/73 01/23/22 15:28 Pulse Oximetry 88 L 01/23/22 16:00 MDM - SOB/Dyspnea Medical Decision Making Acute exacerbation of COPD in addition patient needs oxygen at his baseline. We will start him on 2 L by nasal cannula his creatinine is over the that is approximately at his baseline continue prednisone doxycycline prescribed previously also encouraged him to use albuterol ipratropium bromide combination nebulizers as needed. Follow-up with his doctor within the next week. Medical Records I reviewed the patient's medical records. Lab Data I reviewed the patient's lab results. : 01/23/22 14:50 01/23/22 12:30 Labs/Radiology: Radiology Impressions Chest X-Ray 01/23/22 10:38 Impression: Atherosclerosis and cardiomegaly. Laboratory Results WBC 12.2 10^3/uL (4.0-10.0) H 01/23/22 14:50 Corrected WBC Cancelled 01/23/22 12:30 RBC 4.78 10^6/uL (4.1-5.3) 01/23/22 14:50 Hgb 14.3 g/dL (11.7-16.6) 01/23/22 14:50 Hct 47.6 % (42.0-52.0) 01/23/22 14:50 MCV 99.6 fl (80-94) H 01/23/22 14:50 MCH 29.9 pg (28.0-34.0) 01/23/22 14:50 MCHC 30.0 g/dL (30.0-36.0) 01/23/22 14:50 RDW 13.4 % (12.1-15.1) 01/23/22 14:50 Plt Count 122 10^3/cmm (130-400) L 01/23/22 14:50 MPV 10.5 fL (7.4-10.4) H 01/23/22 14:50 Gran % Cancelled 01/23/22 12:30 Neut % (Auto) 79.7 % 01/23/22 14:50 Lymph % (Auto) 13.4 % 01/23/22 14:50 [place] % (Auto) 5.4 % 01/23/22 14:50 Eos % (Auto) 0.3 % 01/23/22 14:50 Baso % (Auto) 0.2 % 01/23/22 14:50 Neut # (Auto) 9.76 10^3/uL (1.8-7.7) H 01/23/22 14:50 Lymph # (Auto) 1.6 10^3/uL (0.8-4.8) 01/23/22 14:50 [place] # (Auto) 0.7 10^3/uL (0.2-0.9) 01/23/22 14:50 Eos # (Auto) 0.0 10^3/uL (0.0-0.8) 01/23/22 14:50 Baso # (Auto) 0.0 10^3/uL (0.0-0.1) 01/23/22 14:50 Absolute Gran (auto) Cancelled 01/23/22 12:30 Nucleated RBC % (auto) 0 % 01/23/22 14:50 Nucleated RBCs # 0.0 /100WBC 01/23/22 14:50 Specimen Type Arterial 01/23/22 11:06 Sample Site Radial, left 01/23/22 11:06 ABG pH 7.46 (7.35-7.45) H 01/23/22 11:06 ABG pCO2 33.5 mmHg (35-45) L 01/23/22 11:06 ABG pO2 64.9 mmHg (80.0-100.0) L 01/23/22 11:06 ABG HCO3 23.9 mmol/L (22-26) 01/23/22 11:06 ABG O2 Saturation 93.8 01/23/22 11:06 ABG Base Excess 0.6 mmol/L (-2.0-2.0) 01/23/22 11:06 Mich Test Pos 01/23/22 11:06 A-a O2 Gradient 5.7 mmHg (5-10) 01/23/22 11:06 Hematocrit 42.3 % (42-52) 01/23/22 11:06 Hgb O2 Saturation 92.2 % (95-100) L 01/23/22 11:06 Carboxyhemoglobin 1.3 %THgb (0.4-20.1) 01/23/22 11:06 Methemoglobin 0.4 % (0.4-1.5) 01/23/22 11:06 Total Hemoglobin 13.8 g/dL (14-18) L 01/23/22 11:06 Sodium 138.0 mmol/L (131-143) 01/23/22 11:06 Potassium 4.0 mmol/L (3.5-5.0) 01/23/22 11:06 Glucose 261.0 mg/dL (70-115) H 01/23/22 11:06 Ionized Calcium 1.2 mmol/L (1.1-1.4) 01/23/22 11:06 O2 Delivery Device Room air 01/23/22 11:06 FiO2 21.0 % 01/23/22 11:06 Construction Specialist ID Ed 01/23/22 11:06 Sodium 136 mmol/L (136-145) 01/23/22 12:30 Potassium 4.2 mmol/L (3.5-5.1) 01/23/22 12:30 Chloride 101 mmol/L (98-107) 01/23/22 12:30 Carbon Dioxide 22 mmol/L (22-29) 01/23/22 12:30 Anion Gap 17.2 (5-19) 01/23/22 12:30 BUN 32 mg/dL (8-23) H 01/23/22 12:30 Creatinine 1.6 mg/dL (0.7-1.2) H 01/23/22 12:30 GFR Calculation 43.7 mL/min (90-130) L 01/23/22 12:30 Glucose 232 mg/dL (65-115) H 01/23/22 12:30 Calculated Osmolality 296 mOsm/kg (285-295) H 01/23/22 12:30 Calcium 9.0 mg/dL (8.5-10.5) 01/23/22 12:30 Total Bilirubin 0.9 mg/dL (0.15-1.2) 01/23/22 12:30 AST 15 U/L (0-40) 01/23/22 12:30 ALT 21 U/L (0-41) 01/23/22 12:30 Alkaline Phosphatase 44 IU/L (40-130) 01/23/22 12:30 Troponin T Baseline 33 ng/L (0-15) H 01/23/22 12:30 Troponin T 120 Minute 34.33 ng/L (0-15) H 01/23/22 14:50 Delta Troponin T 1.33 ABS# (0-10) 01/23/22 14:50 Total Protein 6.7 g/dL (6.6-8.7) 01/23/22 12:30 Albumin 4.2 g/dL (3.5-5.2) 01/23/22 12:30 Globulin 2.5 g/dL (1.3-4.6) 01/23/22 12:30 Discharge Plan Discharge Patient Disposition: Home Clinical Impression: Acute exacerbation of chronic obstructive airways disease Condition: Stable Prescriptions: New ipratropium-albuterol 0.5 mg-3 mg(2.5 mg base)/3 mL solution for nebulization 3 ml inhalation Q4H PRN (Reason: shortness of breath or wheezing) Qty: 180 0RF Rx Instructions: until breathing returns to target peak flow/parameters No Action amlodipine 5 mg tablet 5 mg PO DAILY Qty: 90 3RF Stiolto Respimat 2.5-2.5 mcg/actuation mist 2 puff inhalation DAILY Qty: 4 3RF escitalopram oxalate 10 mg Tablet 5 mg PO DAILY Qty: 30 0RF atorvastatin 80 mg Tablet 80 mg PO QPM 0RF ferrous sulfate 325 mg (65 mg iron) Tablet 325 mg PO DAILY@1100 0RF omeprazole 20 mg Capsule,Delayed Release(Dr/Ec) 40 mg PO DAILY@1100 0RF Multi-Vitamin HP/Minerals Capsule 1 cap PO DAILY@1100 0RF cholecalciferol (vitamin D3) 2,000 unit Tablet 2,000 unit PO DAILY@1100 0RF losartan 100 mg tablet 50 mg PO DAILY@1100 0RF pentoxifylline 400 mg tablet extended release 400 mg PO TID 0RF senna 8.6 mg Capsule 8.6 mg PO DAILY PRN (Reason: Constipation) 0RF metoprolol tartrate 50 mg tablet 25 mg PO BID@1099,1999 0RF levetiracetam [Keppra] 500 mg tablet 500 mg PO BID Qty: 60 0RF aspirin 81 mg Tablet,Chewable 81 mg PO DAILY 0RF ipratropium-albuterol 0.5 mg-3 mg(2.5 mg base)/3 mL Solution For Nebulization 3 ml inhalation Q6H PRN (Reason: Shortness Of Breath) Qty: 60 0RF clopidogrel [Plavix] 75 mg Tablet 75 mg PO DAILY@1100 0RF albuterol sulfate 90 mcg/actuation Hfa Aerosol Inhaler 2 puff INHALATION Q4H PRN (Reason: Shortness Of Breath) 0RF insulin aspart U-100 [Novolog Flexpen U-100 Insulin] 100 unit/mL (3 mL) Insulin Pen 17 unit SUBCUT BEDTIME PRN (Reason: blood sugar) 0RF Label Comments: pt states he uses 17 units hs prn along with his lantus-pts [place] med list has 10 units as directed but shows its Lantus Solostar U-100 Insulin 100 unit/mL (3 mL) insulin pen 17 unit SUBCUT BEDTIME 0RF tamsulosin 0.4 mg capsule 0.4 mg PO BID@1099,1999 0RF fluticasone propionate 50 mcg/actuation [place],Suspension 2 spray INTRANASAL DAILY PRN (Reason: Allergy Symptoms) 0RF furosemide [Lasix] 20 mg tablet 20 mg PO QAM PRN (Reason: Edema) 0RF doxycycline hyclate 100 mg capsule 100 mg PO BID 10 Days Qty: 20 0RF methylprednisolone [Medrol ([place])] 4 mg tablets,dose pack See Rx Instructions .ROUTE .COMPLEX Qty: 21 0RF Rx Instructions: orally per package directions sofosbuvir 400 mg Tablet 400 mg PO DAILY 0RF Discharge Orders: Discharge ED (Routine); Ordered 01/23/22 Ordered By: Rich Jara Other Ambulatory Orders: DME: Oxygen (Order) Location: None Selected Ordered By: Rich Jara Referrals: Fer Musa DO [Primary Care Provider] - Activity Restrictions/Additional Instructions: Follow-up with your doctor within the next week. Continue to take the prednisone doxycycline prescribed previously Coding Level of Care Code ED [employer] Developer for Chio Bartholomew
--- NOTE | 2022-01-23 10:38 | XR_ITS ---
WS: [id number] Portable AP upright chest, 01/23/2022 Clinical Data: dyspnea/cough Comparison: Portable chest, 01/19/2022. Findings: No nodules, masses or effusions are seen. The heart is enlarged. The pulmonary vascularity is not increased. No pneumonia or pneumothorax is seen. The aortic arch shows mild calcification. The re is a dextroscoliosis. XR/XR chest 1V portable [id number] Impression: Atherosclerosis and cardiomegaly.
--- NOTE | 2022-01-23 10:38 | ECG_ITS ---
[facility] Test Date: 2022-01-23 Pat Name: eJffrey Brown Department: Room: Gender: Male Sourcing Internship: : 1955 Requested By: Rich Gallagher Order Number: [id number] Janet MD: Eloy Otoole M.D. Measurements Intervals [place] Rate: 55 P: -7 [place]: 100 QRS: 3 QRSD: 92 T: 45 QT: 408 QTc: 393 Interpretive Statements SINUS BRADYCARDIA WITH SHORT [place] INTERVAL Compared to ECG 10/21/2021 22:03:40 Short [place] interval now present Sinus rhythm no longer present Electronically Signed On 01-23-2022 21:04:38 CDT by Eloy Otoole M.D. [id number]
[2022-01-23] MEDS: ipratropium-albuterol 3 mL Neb INHALATION (11:06)
[2022-01-23 11:16] LABS: ABG PCO2 33.5 mmHg (35-45); ABG PH Result 7.46 (7.35-7.45); Alveolar-Arterial Oxygen Gradi 5.7 mmHg (5-10); Arterial Blood Gas Hematocrit 42.3 % (42-52); Base Excess ABG 0.6 mmol/L (-2.0-2.0); Blood Gas Allen Test Pos; Blood Gas Operator Identificat ED; Blood Gas Sample Site Radial, left; Blood Gas Sample Type Arterial; Carboxyhemoglobin 1.3 %THgb (0.4-20.1); HCO3 ABG 23.9 mmol/L (22-26); HGB O2 Sat 92.2 % (95-100); Ionized Calcium Level - ABG 1.2 mmol/L (1.1-1.4); Methemoglobin 0.4 % (0.4-1.5); Oxygen Device ROOM AIR; Oxygen Saturation ABG 93.8; PO2 ABG 64.9 mmHg (80.0-100.0); Total Hemoglobin 13.8 g/dL (14-18)
--- NOTE | 2022-01-23 12:38 | ECG_ITS ---
[facility] Test Date: 2022-01-23 Pat Name: Jeffrey Brown Department: Room: Gender: Male Probe Operator: : 1955 Requested By: Rich Gallagher Order Number: [id number] Janet MD: Eloy Otoole M.D. Measurements Intervals [place] Rate: 55 P: 14 OR: 129 QRS: 5 QRSD: 89 T: 50 QT: 401 QTc: 386 Interpretive Statements SINUS BRADYCARDIA Compared to ECG 01/23/2022 09:46:32 Short [place] interval no longer present Electronically Signed On 01-23-2022 21:13:53 CDT by Eloy Otoole M.D. [id number]
[2022-01-23 13:10] LABS: Troponin(5th) Baseline 33 ng/L (0-15)
[2022-01-23 13:11] LABS: Alanine Aminotransferase 21 U/L (0-41); Albumin Level 4.2 g/dL (3.5-5.2); Alkaline Phosphatase 44 IU/L (40-130); Blood Urea Nitrogen 32 mg/dL (8-23); Carbon Dioxide 22 mmol/L (22-29); Chloride 101 mmol/L (98-107); Globulin 2.5 g/dL (1.3-4.6); Glomerular Filtration Rate 43.7 mL/min (90-130); Glucose 232 mg/dL (65-115); Osmolality Calculated 296 mOsm/kg (285-295); Sodium 136 mmol/L (136-145); Total Bilirubin 0.9 mg/dL (0.15-1.2); Total Protein 6.7 g/dL (6.6-8.7)
[2022-01-23 13:13] LABS: Anion Gap 17.2 (5-19); Aspartate Amino Transferase 15 U/L (0-40); Potassium 4.2 mmol/L (3.5-5.1)
[2022-01-23 14:55] LABS: Basophils % 0.2 %; Eosinophils % 0.3 %; Hematocrit 47.6 % (42.0-52.0); Hemoglobin 14.3 g/dL (11.7-16.6); Lymphocytes # 1.6 10^3/uL (0.8-4.8); Lymphocytes % 13.4 %; Mean Corpuscular Hemoglobin 29.9 pg (28.0-34.0); Mean Corpuscular Volume 99.6 fl (80-94); Mean Platelet Volume 10.5 fL (7.4-10.4); Monocytes # 0.7 10^3/uL (0.2-0.9); Monocytes % 5.4 %; Neutrophils # 9.76 10^3/uL (1.8-7.7); Neutrophils % 79.7 %; Nucleated Red Blood Cells % 0 %; Platelet Count 122 10^3/cmm (130-400); Red Blood Count 4.78 10^6/uL (4.1-5.3); Red Cell Distribution Width 13.4 % (12.1-15.1); White Blood Count 12.2 10^3/uL (4.0-10.0)
[2022-01-23 15:22] LABS: Troponin 5 2HR 34.33 ng/L (0-15)
[2022-01-23 15:28] LABS: Troponin 5 2HR Delta 1.33 ABS# (0-10)
--- NOTE | 2022-01-23 16:38 | ECG_ITS ---
[facility] Test Date: 2022-01-23 Pat Name: Jeffrey Brown Department: Room: Gender: Male Gas Tender: : 1955 Requested By: Rich Gallagher Order Number: [id number] Janet MD: Eloy Otoole M.D. Measurements Intervals [place] Rate: 79 P: 57 CO: 138 QRS: 21 QRSD: 94 T: 70 QT: 363 QTc: 416 Interpretive Statements SINUS RHYTHM WITH OCCASIONAL SUPRAVENTRICULAR PREMATURE COMPLEXES POSSIBLE RIGHT VENTRICULAR CONDUCTION DELAY [RSR (QR) IN V1/V2] Compared to ECG 01/23/2022 11:41:03 Sinus bradycardia no longer present Electronically Signed On 01-23-2022 21:12:08 CDT by Eloy Otoole M.D. [id number]
== END 2022-01-23 17:35 | disposition home or self-care (01) ==
PROVIDERS: Emergency Provider Family Medicine; PCP Emergency Medicine Emergency Medical Services
DX: J44.1 Chronic obstructive pulmonary disease with (acute) exacerbation (principal); Z79.02 Long term (current) use of antithrombotics/antiplatelets; Z79.82 Long term (current) use of aspirin; Z79.4 Long term (current) use of insulin; Z87.891 Personal history of nicotine dependence; I25.10 Atherosclerotic heart disease of native coronary artery without angina pectoris; I12.9 Hypertensive chronic kidney disease with stage 1 through stage 4 chronic kidney disease, or unspecified chronic kidney disease; E11.22 Type 2 diabetes mellitus with diabetic chronic kidney disease; N18.30 Chronic kidney disease, stage 3 unspecified; Z86.73 Personal history of transient ischemic attack (TIA), and cerebral infarction without residual deficits; Z86.19 Personal history of other infectious and parasitic diseases; Z89.612 Acquired absence of left leg above knee
CPT/HCPCS: 36600; 71045; 80051; 80053; 82330; 82805; 84484; 85025; 93005; 94640; 96374; 99283; J2930

== ENCOUNTER 2022-02-15 11:45 | Inpatient (IN) | payer OTHER, MEDICARE, SELFPAY ==
[2022-02-15] VITALS (12 sets, daily range): BP systolic 98–135; BP diastolic 53–111; PULSE 95–119; RESP 18–29; TEMP 36.5–36.6; O2SAT 91–95; BMI 34.7; BMI 34.9
--- NOTE | 2022-02-15 12:12 | ED_ITS ---
HPI - SOB/Dyspnea General: Chief Complaint: Shortness of Breath/Dyspnea Stated Complaint: DYSPNEA Time Seen by Provider: 02/15/22 12:11 History of Present Illness: HPI Narrative: Mr. Rader is a 66-year-old gentleman with complex past medical history including hypertension, hyperlipidemia, CAD, diabetes, prior left lower extremity amputation who presents to the emergency department due to shortness of breath. He reports approximately 3 weeks ago being initiated on home oxygen however he continued to feel short of breath. Additionally over the past 3 days symptoms have markedly worsened. He apparently was started on some antibiotic but is unsure what and it is not in our records. Symptoms are worse with exertion but do not go with rest. Intensity is moderate to severe. Course has been worsening. He denies other signs systemic illness. He reports compliance with his medication regimen. No other specific changes in health, exacerbating, or alleviating factors identified. Pertinent past history: COPD, congestive heart failure and diabetes Onset (ago): day(s) Timing: progressively worsening Severity: severe Exacerbating factors: exertion Relieving factors: oxygen Review of Systems General: Reports: 10 or more systems reviewed and unremarkable except in HPI and below PFSH ED PFSH: Medical History Aortic regurgitation Benign prostatic hyperplasia CAD (coronary artery disease) Cervical disc disorder with myelopathy of mid-cervical region Chronic kidney disease, stage III (moderate) Claustrophobia COPD (chronic obstructive pulmonary disease) COPD (chronic obstructive pulmonary disease) Coronary artery calcification CVA (cerebral vascular accident) (~01/2021) clinical diagnosis with dysarthria and confusion, unremarkable work up but unable to perform MRI due to severe claustrophobia Degenerative joint disease of left shoulder Degenerative lumbar disc Depression hospitalization 04/2021 Diabetes mellitus Facet arthropathy, lumbar Frequent UTI Hepatitis C virus infection resolved after antiviral drug therapy some early cirrhosis, HCC ruled out History of DVT (deep vein thrombosis) (~12/2018) History of PFTs (~01/2021) moderate obstructive ventilatory defect, significant response to bronchodilators. Lung volumes suggestive of mild air trapping. Mild reduction in gas transfer. 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 Pets and animals: No Current gender identity: Male Physical Exam Const: COMMON NORMALS: alert GENERAL APPEARANCE: cooperative, well de veloped and ill appearing (Somewhat) HENMT: COMMON NORMALS: normocephalic and atraumatic HEAD & SCALP: normocephalic and atraumatic Eye: COMMON NORMALS: conjunctivae normal CONJUNCTIVA: Yes conjunctivae normal SCLERA: sclerae normal Neck/C-Spine: COMMON NORMALS: supple GENERAL: Yes trachea midline Resp: EFFORT & INSPECTION: Yes tachypneic AUSCULTATION: diminished lung sounds Cardio: RATE: tachycardic RHYTHM: abnormal rhythm irregularly irregular GI: COMMON NORMALS: Soft to palpation PALPATION: Yes Soft to palpation and No Tenderness to palpation present (GI) PERCUSSION: normal to percussion Extremity: NARRATIVE EXTREMITY EXAM: Prior left lower extremity amputation with prosthesis. GENERAL: Yes normal exam except as noted and No edema Neuro: COMMON NORMALS: moves all extremities SENSORIUM/ORIENTATION: Yes alert and No Orientation impaired Psych: COMMON NORMALS: mental status grossly normal and Normal thought process present THOUGHT PROCESS: Normal thought process present Course ED course: - Patient was seen and evaluated by me at bedside - Patient placed on cardiac monitors, IV access obtained - Initial evaluation notable for exam as above - Labs and xrays personally interpreted by me. EKG at 1229 and 1428 personally interpreted by me. Atrial fibrillation with RVR. No STEMI. Occasional ectopy. - Small fluid bolus ordered secondary to soft blood pressure - Labs notable for no leukocytosis, normal hemoglobin. Metabolic panel with elevated creatinine though has been variable in the past. Mild hypomagnesiumia which was replenished. - Imaging notable for mild bilateral interstitial prominence. No pneumothorax or lobar consolidation. - Cardizem ordered followed by drip for new onset atrial fibrillation with RVR. - Upon serial reexamination after treatment the patient was improved - Based on patient history, evaluation, and testing as interpreted the most likely cause of the patient's condition is new onset A. fib with RVR, heart failure exacerbation, dyspnea - The results of ED evaluation were discussed with the patient including plan for admission due to requirement for level of care not available if discharged to prevent significant worsening/deterioration. - Admitting service was contacted and Dr Antonio with the hospitalist service agreed to admit the patient - Patient was admitted without further deterioration or significant events. Note: Click bubbles or prepopulated wray in note writing are used for assistance with data collection and billing and are inherently more limited than narrative and other text portions of this note. Please use narrative for additional clinical history and defer to narrative/free test for any case of contradictory information. If information appears in only free text or click bubble it should be considered present or absent as reported. Please contact note keno writer / runner for clarifications of clinical information or contradictory information. MDM is a brief summary, contradictory or erroneous seeming information should be clarified and full note should be reviewed. Vital Signs: Vital signs: Vital Signs Temperature 99.3 F 02/19/22 20:00 Pulse Rate 81 02/19/22 20:06 Respiratory Rate 18 02/19/22 20:00 Blood Pressure 125/79 02/19/22 20:00 Pulse Oximetry 95 02/19/22 20:00 MDM - SOB/Dyspnea Medical Decision Making 66-year-old gentleman with significant comorbidities presenting with shortness of breath. Found to have new onset A. fib with RVR. Placed on Cardizem drip and admitted for further evaluation and management. Medical Records I reviewed the patient's medical records. Lab Data I reviewed the patient's lab results. : 02/18/22 08:30 02/18/22 13:25 Labs/Radiology: Radiology Impressions Chest X-Ray 02/18/22 07:00 IMPRESSION: Bilateral pulmonary opacities are again noted with the left-sided opacities showing interval improvement. Laboratory Results WBC 6.9 10^3/uL (4.0-10.0) 02/15/22 14:26 RBC 4.64 10^6/uL (4.1-5.3) 02/15/22 14:26 Hgb 14.0 g/dL (11.7-16.6) 02/15/22 14:26 Hct 44.8 % (42.0-52.0) 02/15/22 14:26 MCV 96.6 fl (80-94) H 02/15/22 14:26 MCH 30.2 pg (28.0-34.0) 02/15/22 14: MCHC 31.3 g/dL (30.0-36.0) 02/15/22 14: RDW 14.5 % (12.1-15.1) 02/15/22 14: Plt Count 111 10^3/cmm (130-400) L 02/15/22 14: MPV 10.5 fL (7.4-10.4) H 02/15/22 14:26 Neut % (Auto) 65.7 % 02/15/22 14:26 Lymph % (Auto) 21.8 % 02/15/22 14:26 [place] % (Auto) 8.2 % 02/15/22 14:26 Eos % (Auto) 3.7 % 02/15/22 14:26 Baso % (Auto) 0.3 % 02/15/22 14:26 Neut # (Auto) 4.56 10^3/uL (1.8-7.7) 02/15/22 14:26 Lymph # (Auto) 1.5 10^3/uL (0.8-4.8) 02/15/22 14:26 [place] # (Auto) 0.6 10^3/uL (0.2-0.9) 02/15/22 14:26 Eos # (Auto) 0.3 10^3/uL (0.0-0.8) 02/15/22 14:26 Baso # (Auto) 0.0 10^3/uL (0.0-0.1) 02/15/22 14:26 Nucleated RBC % (auto) 0 % 02/15/22 14:26 Nucleated RBCs # 0.0 /100WBC 02/15/22 14:26 PT 14.10 SECONDS (12.1-14.9) 02/15/22 13:56 INR 1.06 (0.8-1.2) 02/15/22 13:56 APTT 58.5 SECONDS (23.9-36.7) H 02/15/22 13:56 Specimen Type Arterial 02/15/22 12:51 Sample Site Radial, left 02/15/22 12:51 ABG pH 7.42 (7.35-7.45) 02/15/22 12:51 ABG pCO2 35.0 mmHg (35-45) 02/15/22 12:51 ABG pO2 77.2 mmHg (80.0-100.0) L 02/15/22 12:51 ABG HCO3 22.8 mmol/L (22-26) 02/15/22 12:51 ABG Base Excess -1.2 mmol/L (-2.0-2.0) 02/15/22 12:51 Mich Test Pos 02/15/22 12:51 Hematocrit 40.5 % (42-52) L 02/15/22 12:51 O2 Delivery Device Nc 02/15/22 12:51 O2 Liters/Min 2.0 % 02/15/22 12:51 FiO2 28.0 % 02/15/22 12:51 Front End Application Developer ID Cak 02/15/22 12:51 Sodium 138 mmol/L (136-145) 02/15/22 15:08 Potassium 4.4 mmol/L (3.5-5.1) 02/15/22 15:08 Chloride 105 mmol/L (98-107) 02/15/22 15:08 Carbon Dioxide 19 mmol/L (22-29) L 02/15/22 15:08 Anion Gap 18.4 (5-19) 02/15/22 15:08 BUN 20 mg/dL (8-23) 02/15/22 15:08 Creatinine 1.9 mg/dL (0.7-1.2) H 02/15/22 15:08 GFR Calculation 35.9 mL/min (90-130) L 02/15/22 15:08 Glucose 100 mg/dL (65-115) 02/15/22 15:08 Calculated Osmolality 289 mOsm/kg (285-295) 02/15/22 15:08 Calcium 9.2 mg/dL (8.5-10.5) 02/15/22 15:08 Magnesium 1.4 mg/dL (1.7-2.3) L 02/15/22 15:08 Total Bilirubin 1.0 mg/dL (0.15-1.2) 02/15/22 15:08 AST 16 U/L (0-40) 02/15/22 15:08 ALT 14 U/L (0-41) 02/15/22 15:08 Alkaline Phosphatase 43 IU/L (40-130) 02/15/22 15:08 Troponin T Baseline 27 ng/L (0-15) H 02/15/22 15:08 NT-Pro-B Natriuret Pep 3636 pg/mL (0-125) H 02/15/22 15:08 Total Protein 6.8 g/dL (6.6-8.7) 02/15/22 15:08 Albumin 3.9 g/dL (3.5-5.2) 02/15/22 15:08 Globulin 2.9 g/dL (1.3-4.6) 02/15/22 15:08 TSH 3.17 uIU/mL (0.27-4.20) 02/15/22 15:08 Coronavirus 229E (PCR) Not detected (NOT DETECT) 02/15/22 15:45 SARS-CoV-2 (PCR) Not detected (NOT DETECT) 02/15/22 15:45 Critical Care Time Critical Care Time: Critical Care Time: Yes Total Critical Care Time: 35 Attestation: Due to a high probability of clinically significant, possibly life threatening deterioration, the patient required my highest level of attention and preparedness to intervene emergently and I personally spent this critical care time directly and personally managing the patient. This critical care time included obtaining a history; examining the patient; pulse oximetry; ordering and review of laboratory and imaging studies; arranging urgent treatment with development of a management plan; evaluation of patient's response to treatment; frequent reassessment; and, discussions with other providers as applicable. It was exclusive of separately billable procedures. Primary system involved is cardiovascular. Discharge Plan Discharge Patient Disposition: Admitted As Inpatient Admit Provider: Hari Antonio Clinical Impression: New onset atrial fibrillation, Atrial fibrillation with rapid ventricular response, Hypoxemia, Acute on chronic congestive heart failure Condition: Stable Coding Level of Care Code ED Assistant Oceanographer for Chg 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
--- NOTE | 2022-02-15 12:24 | XR_ITS ---
WS: [id number] XR chest 1V portable [id number] REASON FOR EXAM: sob FINDINGS: Mild cardiomegaly. Compared to the previous examination of 01/23/2022, there has been interval development of reticular i nterstitial and groundglass densities in both lower lungs. The costophrenic angles are blunted, opacified. No other significant interval change or new finding. XR/XR chest 1V portable [id number] IMPRESSION: Interval change in the lower hemithoraces bilaterally. Subacute pneumonitis wou ld appear to be more likely. Congestive heart failure would have to be consider ed.
--- NOTE | 2022-02-15 12:25 | ECG_ITS ---
[facility] Test Date: 2022-02-15 Pat Name: Jeffrey Brown Department: Room: Gender: Male Rn Burn: : 1955 Requested By: Ady Fragoso Order Number: [id number] Janet MD: Carly Muro M.D. Measurements Intervals [place] Rate: 119 P: OR: QRS: -8 QRSD: 97 T: 55 QT: 299 QTc: 421 Interpretive Statements ATRIAL FIBRILLATION WITH RAPID VENTRICULAR RESPONSE PROBABLE INFERIOR MYOCARDIAL INFARCTION , PROBABLY OLD [35 ms Q WAVE IN II/aVF] Compared to ECG 01/23/2022 15:31:13 Myocardial infarct finding now present Sinus rhythm no longer present Electronically Signed On 02-16-2022 7:11:48 CDT by Carly Muro M.D. [id number]
[2022-02-15 13:03] LABS: ABG PH Result 7.42 (7.35-7.45); Arterial Blood Gas Hematocrit 40.5 % (42-52); Base Excess ABG -1.2 mmol/L (-2.0-2.0); Blood Gas Allen Test Pos; Blood Gas Operator Identificat CAK; Blood Gas Sample Site Radial, left; Blood Gas Sample Type Arterial; HCO3 ABG 22.8 mmol/L (22-26); Oxygen Device NC; PO2 ABG 77.2 mmHg (80.0-100.0)
--- NOTE | 2022-02-15 14:25 | ECG_ITS ---
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 Measurements Intervals [place] Rate: 128 P: VT: QRS: -9 QRSD: 86 T: 55 QT: 286 QTc: 418 Interpretive Statements ATRIAL FIBRILLATION WITH RAPID VENTRICULAR RESPONSE WITH ABERRANT CONDUCTION OR VENTRICULAR PREMATURE COMPLEXES LOW QRS VOLTAGE IN PRECORDIAL LEADS [QRS DEFLECTION < 1.0 mV IN CHEST LEADS] ABNORMAL RHYTHM ECG Compared to ECG 02/15/2022 12:29:06 Ventricular premature complex(es) now present Aberrant conduction of supraventricular beat(s) now present Low QRS voltage now present Myocardial infarct finding no longer present Electronically Signed On 02-15-2022 18:29:32 CDT by Carly Muro M.D. [id number]
[2022-02-15 14:36] LABS: Basophils % 0.3 %; Eosinophils # 0.3 10^3/uL (0.0-0.8); Eosinophils % 3.7 %; Hematocrit 44.8 % (42.0-52.0); Lymphocytes # 1.5 10^3/uL (0.8-4.8); Lymphocytes % 21.8 %; Mean Corpuscular HGB Conc 31.3 g/dL (30.0-36.0); Mean Corpuscular Hemoglobin 30.2 pg (28.0-34.0); Mean Corpuscular Volume 96.6 fl (80-94); Mean Platelet Volume 10.5 fL (7.4-10.4); Monocytes # 0.6 10^3/uL (0.2-0.9); Monocytes % 8.2 %; Neutrophils # 4.56 10^3/uL (1.8-7.7); Neutrophils % 65.7 %; Nucleated Red Blood Cells % 0 %; Platelet Count 111 10^3/cmm (130-400); Red Blood Count 4.64 10^6/uL (4.1-5.3); Red Cell Distribution Width 14.5 % (12.1-15.1); White Blood Count 6.9 10^3/uL (4.0-10.0)
[2022-02-15 14:45] LABS: INR 1.06 (0.8-1.2)
[2022-02-15 14:46] LABS: Partial Thromboplastin Time 58.5 SECONDS (23.9-36.7)
[2022-02-15 15:18] LABS: Slide Review Slide Review Perform
[2022-02-15 15:38] LABS: Troponin(5th) Baseline 27 ng/L (0-15)
[2022-02-15] MEDS: sodium chloride 0.9% 500 ML 999 ML IV (15:44)
[2022-02-15 15:45] LABS: Alanine Aminotransferase 14 U/L (0-41); Albumin Level 3.9 g/dL (3.5-5.2); Alkaline Phosphatase 43 IU/L (40-130); Anion Gap 18.4 (5-19); Aspartate Amino Transferase 16 U/L (0-40); Blood Urea Nitrogen 20 mg/dL (8-23); Calcium 9.2 mg/dL (8.5-10.5); Carbon Dioxide 19 mmol/L (22-29); Chloride 105 mmol/L (98-107); Globulin 2.9 g/dL (1.3-4.6); Glomerular Filtration Rate 35.9 mL/min (90-130); Glucose 100 mg/dL (65-115); Magnesium 1.4 mg/dL (1.7-2.3); NT Pro B Type Natriuretic Pept 3636 pg/mL (0-125); Osmolality Calculated 289 mOsm/kg (285-295); Potassium 4.4 mmol/L (3.5-5.1); Sodium 138 mmol/L (136-145); Thyroid Stimulating Hormone 3.17 uIU/mL (0.27-4.20); Total Protein 6.8 g/dL (6.6-8.7)
[2022-02-15] MEDS: magnesium sulfate premix 2 GM/50 ML PIGGYBACK IV (16:02)
--- NOTE | 2022-02-15 17:22 | PM.HP ---
Providers/Chief Complaint Admitting Physician: Hari Antonio MD Primary Care Provider: Fer Musa DO Chief Complaint: DYSPNEA History of Present Illness Jeffrey Brown is a 66 year old male with past medical history of aortic regurgitation, CAD, CKD stage III, COPD, CVA, type 2 diabetes mellitus, COPD, hypertension, mitral regurgitation, diastoliC CHF who presents [facility] due to complaints of shortness of breath. Patient tells me that recently has been experiencing increasing shortness of breath, with orthopnea and paroxysmal nocturnal dyspnea. He also tells me that he has been experiencing increased shortness of breath with exertion. Does have a history of left lower extremity amputation with prosthesis in place. Denies any cough, no fevers, no history of COVID-19, denies any productive does tell me that he quit smoking roughly a month ago Review of Systems Const: Denies: fever(s) or chills Eyes: Denies: change in vision or blurry vision ENMT: Denies: nasal congestion Resp: Denies: non-productive cough or wheezing GI: Denies: abdominal pain, nausea, vomiting, hematemesis, diarrhea or constipation : Denies: flank pain, difficulty urinating, dysuria or urinary frequency Musc: Denies: neck pain or back pain Skin/Breast: Denies: rash Neuro: Denies: dizziness Endo: Denies: polyuria or polydipsia Medications/Allergies Home Medications Medication Instructions Recorded Confirmed Last Taken Type atorvastatin 80 mg tablet 80 mg PO QPM 12/28/19 02/15/22 02/14/22 History cholecalciferol (vitamin D3) 50 2,000 unit PO DAILY@109912/28/19 02/15/22 02/15/22 History mcg (2,000 unit) tablet ferrous sulfate 325 mg (65 mg 325 mg PO DAILY@109912/28/19 02/15/22 02/15/22 History iron) tablet multivitamin,tx-minerals 1 cap PO DAILY@109912/28/19 02/15/22 02/15/22 History (Multi-Vitamin HP/Minerals) omeprazole 20 mg capsule,delayed 40 mg PO DAILY@109912/28/19 02/15/22 02/15/22 History release metoprolol tartrate 50 mg tablet 25 mg PO BID@12/30/19 02/15/22 02/15/22 History sennosides 8.6 mg capsule (senna) 8.6 mg PO DAILY PRN 12/30/19 02/15/22 01/23/22 History levetiracetam 500 mg tablet 500 mg PO BID #60 tab 01/03/20 02/15/22 02/15/22 Rx (Keppra) losartan 100 mg tablet 50 mg PO DAILY@1100 03/17/20 02/15/22 02/15/22 History pentoxifylline 400 mg 400 mg PO TID 03/17/20 02/15/22 02/15/22 History tablet,extended release aspirin 81 mg chewable tablet 81 mg PO DAILY 08/31/20 02/15/22 02/15/22 History ipratropium 0.5 mg-albuterol 3 mg 3 ml INHALATION Q6H PRN #60 ml 09/01/20 02/15/22 01/23/22 Rx (2.5 mg base)/3 mL nebulization soln tiotropium 2.5 mcg-olodaterol 2.5 2 puff INHALATION DAILY #4 g 11/25/20 02/15/22 02/15/22 Rx mcg/actuation mist for inhalation (Stiolto Respimat) albuterol sulfate 90 mcg/actuation 2 puff INHALATION Q4H PRN 01/31/21 02/15/22 01/23/22 History aerosol inhaler clopidogrel 75 mg tablet (Plavix) 75 mg PO DAILY@1100 01/31/21 02/15/22 02/15/22 History insulin aspart U-100 100 unit/mL 17 unit SUBCUT BEDTIME PRN 01/31/21 02/15/22 02/14/22 History (3 mL) subcutaneous pen (Novolog Flexpen U-100 Insulin aspart) fluticasone propionate 50 2 spray INTRANASAL DAILY PRN 03/23/21 02/15/22 03/23/21 History mcg/actuation nasal spray,suspension tamsulosin 0.4 mg capsule 0.4 mg PO BID@1100,2000 03/23/21 02/15/22 02/15/22 History escitalopram oxalate 10 mg tablet 5 mg PO DAILY #30 tab 04/18/21 02/15/22 02/15/22 Rx amlodipine 5 mg tablet 5 mg PO DAILY #90 tab 0102/15/22 02/15/22 Rx insulin glargine 100 unit/mL (3 17 unit SUBCUT BEDTIME 12/12/21 02/15/22 02/14/22 History mL) subcutaneous pen (Lantus Solostar U-100 Insulin) furosemide 20 mg tablet (Lasix) 20 mg PO QAM PRN 01/19/22 02/15/22 Unknown History ipratropium 0.5 mg-albuterol 3 mg 3 ml INHALATION Q4H PRN #180 ml 01/23/22 02/15/22 Unknown Rx (2.5 mg base)/3 mL nebulization soln amoxicillin 500 mg capsule 500 mg PO TID 02/15/22 02/15/22 02/15/22 History Allergies Allergy/AdvReac Type Severity Reaction Status Date / Time No Known Allergies Allergy Verified 01/23/22 13:12 PFSH Acute PFSH: Medical History Aortic regurgitation Benign prostatic hyperplasia CAD (coronary artery disease) Cervical disc disorder with myelopathy of mid-cervical region Chronic kidney disease, stage III (moderate) Claustrophobia COPD (chronic obstructive pulmonary disease) COPD (chronic obstructive pulmonary disease) Coronary artery calcification CVA (cerebral vascular accident) (~01/2021) clinical diagnosis with dysarthria and confusion, unremarkable work up but unable to perform MRI due to severe claustrophobia Degenerative joint disease of left shoulder Degenerative lumbar disc Depression hospitalization 04/2021 Diabetes mellitus Facet arthropathy, lumbar Frequent UTI Hepatitis C virus infection resolved after antiviral drug therapy some early cirrhosis, HCC ruled out History of DVT (deep vein thrombosis) (~12/2018) History of PFTs (~01/2021) moderate obstructive ventilatory defect, significant response to bronchodilators. Lung volumes suggestive of mild air trapping. Mild reduction in gas transfer. 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 Pets and animals: No Current gender identity: Male Vitals/I&O/Wt Last Vital Signs Pulse 100 02/15/22 16:58 Resp 18 02/15/22 16:58 BP 98/63 02/15/22 16:58 Pulse Ox 95 02/15/22 16:58 Weight last 48 hrs Weight 112.945 kg Physical Exam Const: COMMON NORMALS: no acute distress and patient oriented x3 HENMT: COMMON NORMALS: normocephalic HEAD & SCALP: normocephalic Eye: COMMON NORMALS: Equal, round and reactive pupils present and EOMs intact bilaterally Lymph: LYMPHATIC: no lymphadenopathy noted Resp: COMMON NORMALS: normal respiratory effort, No retractions and No use of accessory muscles EFFORT & INSPECTION: Yes able to speak in complete sentences AUSCULTATION: crackles Cardio: COMMON NORMALS: S1 normal heart sound present and S2 normal heart sound present RATE: tachycardic RHYTHM: abnormal rhythm HEART SOUNDS: S1 normal heart sound present and S2 normal heart sound present GI: COMMON NORMALS: Normal to inspection, nondistended, normoactive bowel sounds present, Soft to palpation, non-tender and No hepatosplenomegaly present Extremity: COMMON NORMALS: no pedal edema Neuro: COMMON NORMALS: patient oriented x3 Psych: COMMON NORMALS: mental status grossly normal Data : 02/15/22 14:26 02/15/22 15:08 Micro: Microbiology 02/15/22 13:56 Blood Culture - Preliminary Blood SPECIMEN COLLECTED 02/15/22 13:56 Blood Culture - Preliminary Blood SPECIMEN COLLECTED A&P Assessment and plan (1) Acute on chronic congestive heart failure: Status: Acute (2) CAD (coronary artery disease): Status: Acute Qualifiers: Coronary Disease-Associated Artery/Lesion type: [place] artery [place] vs. transplanted heart: [place] heart Associated angina: without angina Qualified Code(s): I25.10 - Atherosclerotic heart disease of [place] coronary artery without angina pectoris (3) HTN (hypertension), benign: Status: Acute (4) Depression: Status: Chronic Qualifiers: Depression Type: unspecified Qualified Code(s): F32.9 - Major depressive disorder, single episode, unspecified (5) Peripheral vascular disease: Status: Chronic (6) Coronary artery calcification: Status: Chronic (7) Atrial fibrillation with rapid ventricular response: Status: Acute Plan New onset atrial fibrillation -Replace magnesium --Continue Cardizem drip -Transition to p.o. Cardizem -Continue home metoprolol -Start heparin drip for anticoagulation -Full code -Heparin drip for DVT prophylaxis Diastolic CHF exacerbation -Fluid restrictions 1500 cc -Lasix 40 IV twice daily -Mag greater than 2, potassium better than 4 -Monitor respiratory status closely -DuoNebs if needed Elevated troponins, likely secondary from CHF, atrial fibrillation, serial EKGs, serial troponins, continue aspirin, statin, Plavix Type 2 diabetes mellitus, glargine 10 units at bedtime, low-dose sliding scale History of CAD, continue home aspirin, Plavix Depression, continue home meds History of COPD, no active wheezing, hold off on steroids History of BPH, continue Flomax Attestations Medical Necessity Statement*: Patient requires hospitalization patient requires hospitalization for A. fib with RVR, CHF exacerbation, diastolic, inpatient, greater than 2 midnights Coding Level of Care Code Acute Machine Hoop Maker for Chg Fwd Diagnoses Acute on chronic congestive heart failure I50.9 CAD (coronary artery disease) I25.10 Coronary Disease-Associated Artery/Lesion type: [place] artery [place] vs. transplanted heart: [place] heart Associated angina: without angina HTN (hypertension), benign I10 Depression F32.9 Depression Type: unspecified Peripheral vascular disease I73.9 Coronary artery calcification I25.10; I25.84 Atrial fibrillation with rapid ventricular response I48.91
[2022-02-15 17:35] LABS: Glucose Point of Care 116 mg/dL (70-110)
[2022-02-15] MEDS: ipratropium-albuterol 3 mL Neb INHALATION ×2 (18:08→20:08)
[2022-02-15] MEDS: FUROsemide 10 mg/mL SDV 4mL 40 MG IVP (18:09)
[2022-02-15] MEDS: pantoprazole 40 mg SDV IVP (18:09)
[2022-02-15] MEDS: atorvastatin 40 mg Tablet 80 MG PO (18:10)
[2022-02-15] MEDS: dilTIAZem 60 mg Tablet PO ×2 (18:10→22:57)
--- NOTE | 2022-02-15 18:25 | ECG_ITS ---
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 Measurements Intervals [place] Rate: 109 P: [place]: QRS: 28 QRSD: 86 T: 48 QT: 325 QTc: 439 Interpretive Statements ATRIAL FIBRILLATION WITH RAPID VENTRICULAR RESPONSE LOW QRS VOLTAGE IN PRECORDIAL LEADS [QRS DEFLECTION < 1.0 mV IN CHEST LEADS] ABNORMAL RHYTHM ECG Compared to ECG 02/15/2022 14:28:14 Ventricular premature complex(es) no longer present Aberrant conduction of supraventricular beat(s) no longer present Electronically Signed On 02-15-2022 18:28:30 CDT by Carly Muro M.D. [email or web address] countyApar[facility] Systems[facility].Mango DSP/store/OM/[id number]
[2022-02-15 18:29] LABS: Adenovirus Not Detected (NOT DETECT); Chlamydia Pneumoniae Not Detected (NOT DETECT); Coronavirus 229E,HKU1,NL63,OC4 Not Detected (NOT DETECT); Human Metapneumovirus Not Detected (NOT DETECT); Human Rhinovirus/Enterovirus Not Detected (NOT DETECT); Influenza A Not Detected (NOT DETECT); Influenza A H1 Not Detected (NOT DETECT); Influenza A H1-2009 Not Detected (NOT DETECT); Influenza A H3 Not Detected (NOT DETECT); Influenza B Not Detected (NOT DETECT); Mycoplasma Pneumoniae Not Detected (NOT DETECT); Parainfluenza Virus Type 1 Not Detected (NOT DETECT); Parainfluenza Virus Type 2 Not Detected (NOT DETECT); Parainfluenza Virus Type 3 Not Detected (NOT DETECT); Parainfluenza Virus Type 4 Not Detected (NOT DETECT); Respiratory Syncytial Virus A Not Detected (NOT DETECT); Respiratory Syncytial Virus B Not Detected (NOT DETECT); SARS-COV-2 Not Detected (NOT DETECT)
[2022-02-15 18:37] LABS: Troponin 5 2HR Delta 1.42 ABS# (0-10)
--- NOTE | 2022-02-15 18:43 | PC.NURSE ---
This nurse asked by primary nurse to obtain second IV access for heparin infusion this nurse explained to patient the procedure and the necessity for the second IV patient stated something similar to The Er tried several hours to get one my veins just blow I cant handle it Please don't stick me This nurse notified Dr clayton no new instructions at this time
[2022-02-15 18:45] LABS: C Reactive Protein 5.3 mg/L (0.0-4.9); Procalcitonin 0.05 ng/mL (0-0.5)
[2022-02-15 18:46] LABS: Troponin 5 2HR 28.42 ng/L (0-15)
[2022-02-15] MEDS: levETIRAcetam 500 mg Tablet PO (20:27)
[2022-02-15] MEDS: tamsulosin 0.4 mg Capsule PO (20:27)
[2022-02-15] MEDS: metoprolol tartrate 25 mg Tablet PO (20:27)
[2022-02-15] MEDS: apixaban 5 mg Tablet PO (20:31)
[2022-02-15 20:48] LABS: Glucose Point of Care 135 mg/dL (70-110)
[2022-02-15] MEDS: insulin glargine 100 units/1 mL 10 UNIT SUBCUT (22:03)
[2022-02-15 22:10] LABS: Troponin 5 6HR 26.81 ng/L (0-15)
[2022-02-15 22:17] LABS: Troponin 5 6HR Delta -0.19 ng/L (0-12)
[2022-02-15] MEDS: acetaminophen 325 mg Tablet 650 MG PO (22:53)
--- NOTE | 2022-02-15 23:12 | XRR_ITS ---
PROCEDURE INFORMATION: Exam: XR Chest Exam date and time: 02/15/2022 11:31 PM Age: 66 years old Clinical indication: Dyspnea and shortness of breath; Additional info: Increased shortness of breath TECHNIQUE: Imaging protocol: XR of the chest. Views: 1 view. COMPARISON: CR XR chest 1V portable [id number] 02/15/2022 12:30 PM FINDINGS: Lungs: Lower lobe opacities. Thickening of interstitial lung markings with coarse reticular appearance. Pleural spaces: Small pleural effusions. Negative for pneumothorax. Heart/Mediastinum: Cardiomegaly. Bones/joints: Unremarkable. XR/XR chest 1V portable [id number] IMPRESSION: Fluid overload changes in the chest consistent with congestive heart failure.
--- NOTE | 2022-02-15 23:44 | PC.NURSE ---
1900- pt noted to have Cardizem gtt infusing at 10ml/hr. MAR rate at 5ml/hr. 2300- pt's HR in the 80s. Cardizem rate titrated down by 2.5ml/hr.
[2022-02-16] VITALS (29 sets, daily range): BP systolic 99–164; BP diastolic 55–109; PULSE 78–128; RESP 10–38; TEMP 36.4–37.1; O2SAT 90–97
--- NOTE | 2022-02-16 | USCV_ITS ---
Transthoracic Echo Jeffrey Brown Age: 66 Gender: M : 1955 Exam Date: 02/16/2022 01:18 Ordering Phys: Hari Antonio MD Technologist: [email or web address] Exam Location: [facility] [place] Indication: SOB BP: 113 / 66 HR: 79 Rhythm: Sinus Technical Quality: Technically difficult study MEASUREMENTS (Male / Female) Normal Values 2D ECHO LV Diastolic Diameter PLAX 5.7 cm 4.2 - 5.9 / 3.9 - 5.3 cm LV Systolic Diameter PLAX 3.6 cm IVS Diastolic Thickness 1.1 cm 0.6 - 1.0 / 0.6 - 0.9 cm IVS Systolic Thickness 2.0 cm LVPW Diastolic Thickness 0.9 cm 0.6 - 1.0 / 0.6 - 0.9 cm LVPW Systolic Thickness 2.4 cm LVOT Diameter 2.1 cm LV Ejection Fraction 2D Teich 65.7 % LA Diameter 5.2 cm Aorta at Sinotubular Diameter 2.8 cm M-MODE Aortic Annulus Diameter 2.4 cm LA Ao Ratio MM 2.4 MV E Point Septal Separation 2.9 cm DOPPLER PV Peak Velocity 85.7 cm/s RV Acceleration Time 0.2 s RV Ejection Time 0.3 s RV AcT/ET 0.5 FINDINGS Left Ventricle Left ventricular cavity not well visualized. Normal left ventricular size, systolic function and wall thickness, with no regional wall motion abnormalities. Left ventricular ejection fraction is estimated at 55-60 %. Right Ventricle Right ventricle not well visualized. Right Atrium Right atrium not well visualized. Left Atrium Left atrium not well visualized. Mitral Valve Mitral valve not well visualized. Aortic Valve Aortic valve not well visualized. Tricuspid Valve Tricuspid valve not well visualized. Pulmonic Valve Pulmonic valve not well visualized. Pericardium Normal pericardium without effusion. Aorta Normal ascending aorta dimension. CONCLUSIONS Left ventricular cavity not well visualized. Normal left ventricular size, systolic function and wall thickness, with no regional wall motion abnormalities. Left ventricular ejection fraction is estimated at 55-60 %. Dr. Kristian Villalobos MD (Electronically Signed) Final Date: 16 February 2022 15:57 S
[2022-02-16] MEDS: ipratropium-albuterol 3 mL Neb INHALATION ×7 (00:03→20:19)
[2022-02-16 00:24] LABS: ABG PH Result 7.43 (7.35-7.45); Arterial Blood Gas Hematocrit 39.2 % (42-52); Base Excess ABG -1.5 mmol/L (-2.0-2.0); Blood Gas Allen Test Pos; Blood Gas Sample Site Radial, left; Blood Gas Sample Type Arterial; Carboxyhemoglobin 1.1 %THgb (0.4-20.1); HCO3 ABG 22.1 mmol/L (22-26); HGB O2 Sat 90.7 % (95-100); Ionized Calcium Level - ABG 1.2 mmol/L (1.1-1.4); Methemoglobin 0.7 % (0.4-1.5); Oxygen Device NC; Oxygen Saturation ABG 92.4; PO2 ABG 61.3 mmHg (80.0-100.0); Potassium Level - ABG 4.4 mmol/L (3.5-5.0); Total Hemoglobin 12.8 g/dL (14-18)
--- NOTE | 2022-02-16 03:31 | PC.NURSE ---
Cardizem gtt titrated to 5mls/hr
[2022-02-16] MEDS: FUROsemide 10 mg/mL SDV 4mL 40 MG IVP (05:05)
[2022-02-16] MEDS: dilTIAZem 60 mg Tablet PO ×3 (05:06→18:03)
[2022-02-16 06:15] LABS: Glucose Point of Care 214 mg/dL (70-110)
[2022-02-16 06:15] LABS: Glucose Point of Care 157 mg/dL (70-110)
[2022-02-16 06:15] LABS: Glucose Point of Care 128 mg/dL (70-110)
[2022-02-16 06:15] LABS: Glucose Point of Care 152 mg/dL (70-110)
--- NOTE | 2022-02-16 06:34 | PC.NURSE ---
This RN Radha Rashid did Fingersticks on multiple patients following protocol, scanned bracelets . All fingerstick results populated on patient Jeffrey Rader labs . Lab notified, and RNs . Fingersticks redid
[2022-02-16 06:51] LABS: Glucose Point of Care 144 mg/dL (70-110)
[2022-02-16] MEDS: insulin lispro 100 unit/1 mL SUBCUT ×2 (08:24→12:16)
[2022-02-16] MEDS: levETIRAcetam 500 mg Tablet PO ×2 (08:25→19:45)
[2022-02-16] MEDS: escitalopram 10 mg Tablet 5 MG PO (08:25)
[2022-02-16] MEDS: apixaban 5 mg Tablet PO ×2 (08:25→19:46)
[2022-02-16] MEDS: aspirin 81 mg Chew Tablet PO (08:25)
[2022-02-16 09:41] LABS: Basophils % 0.4 %; Eosinophils # 0.3 10^3/uL (0.0-0.8); Eosinophils % 4.5 %; Hematocrit 45.6 % (42.0-52.0); Hemoglobin 14.6 g/dL (11.7-16.6); Lymphocytes # 1.1 10^3/uL (0.8-4.8); Lymphocytes % 19.3 %; Mean Corpuscular Hemoglobin 30.1 pg (28.0-34.0); Mean Platelet Volume 11.2 fL (7.4-10.4); Monocytes # 0.3 10^3/uL (0.2-0.9); Monocytes % 6.2 %; Neutrophils # 3.82 10^3/uL (1.8-7.7); Neutrophils % 69.4 %; Nucleated Red Blood Cells % 0 %; Platelet Count 92 10^3/cmm (130-400); Red Blood Count 4.85 10^6/uL (4.1-5.3); Red Cell Distribution Width 14.5 % (12.1-15.1); White Blood Count 5.5 10^3/uL (4.0-10.0)
[2022-02-16 09:55] LABS: Alanine Aminotransferase 14 U/L (0-41); Alkaline Phosphatase 45 IU/L (40-130); Aspartate Amino Transferase 19 U/L (0-40); Blood Urea Nitrogen 29 mg/dL (8-23); Calcium 9.6 mg/dL (8.5-10.5); Carbon Dioxide 19 mmol/L (22-29); Chloride 103 mmol/L (98-107); Globulin 2.2 g/dL (1.3-4.6); Glucose 182 mg/dL (65-115); Magnesium 1.8 mg/dL (1.7-2.3); Osmolality Calculated 294 mOsm/kg (285-295); Sodium 137 mmol/L (136-145); Total Bilirubin 1.3 mg/dL (0.15-1.2); Total Protein 6.2 g/dL (6.6-8.7)
[2022-02-16 10:03] LABS: Anion Gap 19.5 (5-19); Potassium 4.5 mmol/L (3.5-5.1)
[2022-02-16 10:05] LABS: NT Pro B Type Natriuretic Pept 3514 pg/mL (0-125)
[2022-02-16 10:14] LABS: Slide Review Slide Review Perform
[2022-02-16] MEDS: cholecalciferol (vitamin D3) 1,000 unit Tablet 2000 UNIT PO (10:44)
[2022-02-16] MEDS: metoprolol tartrate 25 mg Tablet PO (10:44)
[2022-02-16] MEDS: clopidogrel 75 mg Tablet PO (10:44)
[2022-02-16] MEDS: ferrous sulfate EC 325 mg Tablet PO (10:45)
[2022-02-16] MEDS: tamsulosin 0.4 mg Capsule PO ×2 (10:49→19:46)
[2022-02-16 11:15] LABS: Glucose Point of Care 176 mg/dL (70-110)
--- NOTE | 2022-02-16 13:35 | PM.PN ---
Subjective Subjective: Patient was seen this morning, he denies any fever or chills. His heart rates are well controlled, his breathing has improved Vitals/I&O/Wt Last Vital Signs Temp 97.5 F L 02/16/22 12:00 Pulse 88 02/16/22 12:00 Resp 18 02/16/22 12:00 BP 99/55 02/16/22 12:00 Pulse Ox 94 02/16/22 12:00 02/15/22 02/16/22 02/16/22 22:59 06:59 14:59 Intake Total 340 / 340 145.25 / 485.25 524.417 / 524.417 Output Total 1025 / 1025 550 / 1575 450 / 450 Balance -685 / -685 -404.75 / -1089.75 74.417 / 74.417 Weight last 48 hrs Weight 113.511 kg Weight 112.945 kg Physical Exam Const: COMMON NORMALS: no acute distress and patient oriented x3 Resp: COMMON NORMALS: normal respiratory effort, No retractions, No use of accessory muscles and clear to auscultation bilaterally AUSCULTATION: clear to auscultation bilaterally Cardio: COMMON NORMALS: regular rate, S1 normal heart sound present and S2 normal heart sound present RATE: regular rate RHYTHM: abnormal rhythm irregularly irregular HEART SOUNDS: S1 normal heart sound present and S2 normal heart sound present GI: COMMON NORMALS: Normal to inspection, nondistended, normoactive bowel sounds present, Soft to palpation, non-tender and No hepatosplenomegaly present PALPATION: Yes Soft to palpation and Yes No hepatosplenomegaly present Extremity: NARRATIVE EXTREMITY EXAM: 1+ pitting edema bilateral lower extremities Neuro: COMMON NORMALS: patient oriented x3 Psych: COMMON NORMALS: mental status grossly normal Data : 02/16/22 09:05 02/16/22 09:05 Micro: Microbiology 02/15/22 13:56 Blood Culture - Preliminary Blood SPECIMEN COLLECTED 02/15/22 13:56 Blood Culture - Preliminary Blood SPECIMEN COLLECTED A&P Assessment and plan (1) Acute on chronic congestive heart failure: Status: Acute (2) CAD (coronary artery disease): Status: Acute Qualifiers: Coronary Disease-Associated Artery/Lesion type: [place] artery [place] vs. transplanted heart: [place] heart Associated angina: without angina Qualified Code(s): I25.10 - Atherosclerotic heart disease of [place] coronary artery without angina pectoris (3) HTN (hypertension), benign: Status: Acute (4) Depression: Status: Chronic Qualifiers: Depression Type: unspecified Qualified Code(s): F32.9 - Major depressive disorder, single episode, unspecified (5) Peripheral vascular disease: Status: Chronic (6) Coronary artery calcification: Status: Chronic (7) Atrial fibrillation with rapid ventricular response: Status: Acute Plan New onset atrial fibrillation -Replace magnesium -Transition off Cardizem drip -Transition to p.o. Cardizem -Continue home metoprolol -Patient refused another IV, heparin drip cannot be started, on Eliquis -Full code -Heparin drip for DVT prophylaxis Diastolic CHF exacerbation -Fluid restrictions 1500 cc -Creatinine up to 2.6, hold Lasix -Mag greater than 2, potassium better than 4 -Monitor respiratory status closely -DuoNebs if needed Elevated troponins, likely secondary from CHF, atrial fibrillation, serial EKGs, serial troponins, continue aspirin, statin, Plavix Type 2 diabetes mellitus, glargine 10 units at bedtime, low-dose sliding scale History of CAD, continue home aspirin, Plavix Depression, continue home meds History of COPD, no active wheezing, hold off on steroids History of BPH, continue Flomax Acute on chronic thrombocytopenia, platelet count 92,000 Attestations Medical Necessity Statement*: Patient requires hospitalization for A. fib with RVR, shortness of breath diastolic CHF exacerbation Coding Level of Care Code Acute Parts Picker for Chg Fwd Diagnoses Acute on chronic congestive heart failure I50.9 CAD (coronary artery disease) I25.10 Coronary Disease-Associated Artery/Lesion type: [place] artery [place] vs. transplanted heart: [place] heart Associated angina: without angina HTN (hypertension), benign I10 Depression F32.9 Depression Type: unspecified Peripheral vascular disease I73.9 Coronary artery calcification I25.10; I25.84 Atrial fibrillation with rapid ventricular response I48.91
[2022-02-16] MEDS: magnesium sulfate premix 2 GM/50 ML PIGGYBACK IV (14:08)
--- NOTE | 2022-02-16 15:09 | XR_ITS ---
WS: [id number] PORTABLE CHEST HISTORY: sob COMPARISON: 02/15/2022 Lungs are hyperexpanded. Mild improvement in the CHF that was recently described. There is continued interstitial edema. No focal pneumonia. Scattered densities throughout both lungs are probably edema. No pleural effusion or pneumothorax. Cardiac size: Moderately enlarged cardiac silhouette. Mediastinum/Aorta: Normal mediastinum. No osseous abnormality seen. XR/XR chest 1V portable [id number] IMPRESSION: 1. Scattered opacifications throughout the lungs probably related to CHF and f luid overload. Recommend follow to resolution to be sure of these nodular densi ties resolved. 2. Moderate cardiomegaly.
--- NOTE | 2022-02-16 15:45 | ECG_ITS ---
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 Measurements Intervals [place] Rate: 89 P: [place]: QRS: -1 QRSD: 98 T: 33 QT: 351 QTc: 428 Interpretive Statements ATRIAL FIBRILLATION LOW QRS VOLTAGE IN PRECORDIAL LEADS [QRS DEFLECTION < 1.0 mV IN CHEST LEADS] POSSIBLE INFERIOR MYOCARDIAL INFARCTION , PROBABLY OLD [30 ms Q WAVE IN II/aVF] ABNORMAL RHYTHM ECG Compared to ECG 02/15/2022 18:15:08 Myocardial infarct finding now present Electronically Signed On 02-17-2022 16:05:23 CDT by Eloy Otoole M.D. [email or web address].[email or web address]/[id number]
[2022-02-16 15:46] LABS: ABG PCO2 36.5 mmHg (35-45); ABG PH Result 7.38 (7.35-7.45); Alveolar-Arterial Oxygen Gradi 32.9 mmHg (5-10); Arterial Blood Gas Hematocrit 40.2 % (42-52); Blood Gas Allen Test Pos; Blood Gas Operator Identificat ED; Blood Gas Sample Site Radial, left; Blood Gas Sample Type Arterial; Carboxyhemoglobin 0.9 %THgb (0.4-20.1); HCO3 ABG 21.6 mmol/L (22-26); HGB O2 Sat 98.5 % (95-100); Ionized Calcium Level - ABG 1.3 mmol/L (1.1-1.4); Methemoglobin 0.8 % (0.4-1.5); Oxygen Device BIPAP; Oxygen Saturation ABG > 100.0; Potassium Level - ABG 4.8 mmol/L (3.5-5.0); Total Hemoglobin 13.1 g/dL (14-18)
[2022-02-16 15:56] LABS: Basophils % 0.4 %; Eosinophils # 0.2 10^3/uL (0.0-0.8); Eosinophils % 2.6 %; Hematocrit 45.9 % (42.0-52.0); Hemoglobin 13.6 g/dL (11.7-16.6); Lymphocytes # 0.9 10^3/uL (0.8-4.8); Lymphocytes % 11.9 %; Mean Corpuscular HGB Conc 29.6 g/dL (30.0-36.0); Mean Corpuscular Volume 101.1 fl (80-94); Mean Platelet Volume 10.9 fL (7.4-10.4); Monocytes # 0.4 10^3/uL (0.2-0.9); Neutrophils # 6.19 10^3/uL (1.8-7.7); Neutrophils % 79.7 %; Nucleated Red Blood Cells % 0 %; Platelet Count 139 10^3/cmm (130-400); Red Blood Count 4.54 10^6/uL (4.1-5.3); Red Cell Distribution Width 14.2 % (12.1-15.1); White Blood Count 7.8 10^3/uL (4.0-10.0)
[2022-02-16 16:21] LABS: Lactate (Lactic Acid level) 2.1 mmol/L (0.5-2.2)
[2022-02-16 16:22] LABS: Troponin(5th) Baseline 27 ng/L (0-15)
[2022-02-16 16:31] LABS: Glucose Point of Care 187 mg/dL (70-110)
[2022-02-16 16:32] LABS: NT Pro B Type Natriuretic Pept 3483 pg/mL (0-125); Procalcitonin 0.07 ng/mL (0-0.5)
[2022-02-16] MEDS: metOLazone 5 MG Tablet 10 MG PO (16:34)
[2022-02-16] MEDS: midodrine 5 mg TABLET 10 MG PO (16:34)
[2022-02-16 16:47] LABS: Alanine Aminotransferase 17 U/L (0-41); Albumin Level 4.4 g/dL (3.5-5.2); Alkaline Phosphatase 53 IU/L (40-130); Blood Urea Nitrogen 33 mg/dL (8-23); C Reactive Protein 9.7 mg/L (0.0-4.9); Calcium 9.9 mg/dL (8.5-10.5); Carbon Dioxide 15 mmol/L (22-29); Chloride 100 mmol/L (98-107); Globulin 2.8 g/dL (1.3-4.6); Glomerular Filtration Rate 23.9 mL/min (90-130); Glucose 177 mg/dL (65-115); Osmolality Calculated 292 mOsm/kg (285-295); Sodium 135 mmol/L (136-145); Total Bilirubin 1.2 mg/dL (0.15-1.2); Total Protein 7.2 g/dL (6.6-8.7)
[2022-02-16 16:49] LABS: Anion Gap 25.3 (5-19); Aspartate Amino Transferase 28 U/L (0-40); Potassium 5.3 mmol/L (3.5-5.1)
--- NOTE | 2022-02-16 17:45 | ECG_ITS ---
[facility] Test Date: 2022-02-16 Pat Name: Jeffrey Brown Department: Room: [facility] Gender: Male Reimbursement Spec: : 1955 Requested By: Hari Antonio Order Number: [id number] Janet MD: Eloy Otoole M.D. Measurements Intervals [place] Rate: 92 P: [place]: QRS: -4 QRSD: 92 T: 55 QT: 330 QTc: 410 Interpretive Statements ATRIAL FIBRILLATION Compared to ECG 02/16/2022 16:18:49 Myocardial infarct finding no longer present Electronically Signed On 02-17-2022 16:12:00 CDT by Eloy Otoole M.D. [email or web address] biloxiVoltServerpark[facility].WhoWantsMe/store/[id number]
[2022-02-16] MEDS: atorvastatin 40 mg Tablet 80 MG PO (18:03)
--- NOTE | 2022-02-16 18:39 | PC.NURSE ---
From CSU Pt rec'd from CSU via bed by nursing staff. Pt on nasal canula while transporting and placed on BiPap once brought into ICU room. Pt is alert and oriented. Pt brought with his belongings including a left prosthetic leg. Pt oriented to room and call light placed within reach.
--- NOTE | 2022-02-16 19:10 | PC.NURSE ---
1504 - notified Dr. Antonio of pt having significant SOB and difficulty breathing. Received orders for an abg and bipap. Dr. to bedside and 1530 and orders to transfer to ICU. Pt placed on bipap by RT.
[2022-02-16] MEDS: bumetanide 0.25 mg/mL SDV 4 mL 1 MG IVP (19:45)
[2022-02-16] MEDS: insulin glargine 100 units/1 mL 10 UNIT SUBCUT (20:11)
[2022-02-16 20:17] LABS: Glucose Point of Care 148 mg/dL (70-110)
--- NOTE | 2022-02-16 21:45 | ECG_ITS ---
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 Measurements Intervals [place] Rate: 113 P: [place]: QRS: -19 QRSD: 93 T: 71 QT: 305 QTc: 420 Interpretive Statements ATRIAL FIBRILLATION WITH RAPID VENTRICULAR RESPONSE PROBABLE INFERIOR MYOCARDIAL INFARCTION , PROBABLY OLD [35 ms Q WAVE IN II/aVF] Compared to ECG 02/16/2022 17:33:37 Myocardial infarct finding now present Electronically Signed On 02-17-2022 16:11:27 CDT by Eloy Otoole M.D. [id number]
[2022-02-17] VITALS (132 sets, daily range): BP systolic 96–143; BP diastolic 50–112; PULSE 79–158; RESP 12–34; TEMP 37.1–37.4; O2SAT 88–97
[2022-02-17] MEDS: dilTIAZem 60 mg Tablet PO ×5 (00:08→23:10)
--- NOTE | 2022-02-17 00:10 | PC.NURSE ---
0000 dose of midodrine was held per MD order based on pt's blood pressure throughout this shift.
[2022-02-17] MEDS: ipratropium-albuterol 3 mL Neb INHALATION ×5 (03:45→23:15)
[2022-02-17 04:16] LABS: Basophils % 0.3 %; Eosinophils # 0.2 10^3/uL (0.0-0.8); Eosinophils % 3.4 %; Hematocrit 37.4 % (42.0-52.0); Hemoglobin 11.9 g/dL (11.7-16.6); Lymphocytes # 1.3 10^3/uL (0.8-4.8); Lymphocytes % 19.4 %; Mean Corpuscular HGB Conc 31.8 g/dL (30.0-36.0); Mean Corpuscular Hemoglobin 29.8 pg (28.0-34.0); Mean Corpuscular Volume 93.5 fl (80-94); Mean Platelet Volume 10.5 fL (7.4-10.4); Monocytes # 0.5 10^3/uL (0.2-0.9); Monocytes % 7.1 %; Neutrophils # 4.52 10^3/uL (1.8-7.7); Neutrophils % 69.6 %; Nucleated Red Blood Cells % 0 %; Platelet Count 110 10^3/cmm (130-400); Red Cell Distribution Width 14.2 % (12.1-15.1); White Blood Count 6.5 10^3/uL (4.0-10.0)
[2022-02-17 04:20] LABS: ABG PCO2 36.1 mmHg (35-45); ABG PH Result 7.48 (7.35-7.45); Arterial Blood Gas Hematocrit 36.9 % (42-52); Base Excess ABG 3.5 mmol/L (-2.0-2.0); Blood Gas Allen Test Pos; Blood Gas Operator Identificat JB; Blood Gas Sample Site Radial, right; Blood Gas Sample Type Arterial; Oxygen Device BIPAP; PO2 ABG 83.7 mmHg (80.0-100.0)
[2022-02-17 04:39] LABS: Troponin T (5th) Once 35 ng/L (0-15)
[2022-02-17 04:45] LABS: NT Pro B Type Natriuretic Pept 2816 pg/mL (0-125); Procalcitonin 0.08 ng/mL (0-0.5)
[2022-02-17 04:57] LABS: Alanine Aminotransferase 13 U/L (0-41); Albumin Level 3.8 g/dL (3.5-5.2); Alkaline Phosphatase 44 IU/L (40-130); Aspartate Amino Transferase 18 U/L (0-40); Blood Urea Nitrogen 34 mg/dL (8-23); C Reactive Protein 16.6 mg/L (0.0-4.9); Calcium 9.7 mg/dL (8.5-10.5); Carbon Dioxide 23 mmol/L (22-29); Chloride 101 mmol/L (98-107); Globulin 2.9 g/dL (1.3-4.6); Glomerular Filtration Rate 28.8 mL/min (90-130); Glucose 123 mg/dL (65-115); Magnesium 2.1 mg/dL (1.7-2.3); Osmolality Calculated 293 mOsm/kg (285-295); Sodium 137 mmol/L (136-145); Total Bilirubin 1.7 mg/dL (0.15-1.2); Total Protein 6.7 g/dL (6.6-8.7)
--- NOTE | 2022-02-17 07:00 | XR_ITS ---
WS: [id number] PORTABLE CHEST HISTORY: sob COMPARISON: 02/16/2022 Significantly improved aeration bilaterally. Edema seen on the prior study has significantly improved . Very minimal patchy opacification now at the lingula. Partial obscuration of the LEFT hemidiaphragm is probably due to atelectasis. No pleural effusion or pneumothorax. Cardiac size: Mildly enlarged cardiac silhouette. Mediastinum/Aorta: Normal mediastinum. No osseous abnormality seen. XR/XR chest 1V portable [id number] IMPRESSION: 1. Significant improvement in aeration. Less CHF. 2. Subsegmental atelectasis posterior to LEFT heart is new.
[2022-02-17 07:31] LABS: Glucose Point of Care 205 mg/dL (70-110)
[2022-02-17] MEDS: bumetanide 0.25 mg/mL SDV 4 mL 1 MG IVP ×2 (07:33→19:52)
[2022-02-17] MEDS: insulin lispro 100 unit/1 mL SUBCUT ×2 (07:34→17:34)
[2022-02-17] MEDS: midodrine 5 mg TABLET 10 MG PO (07:35)
[2022-02-17] MEDS: apixaban 5 mg Tablet PO ×2 (09:11→20:57)
[2022-02-17] MEDS: aspirin 81 mg Chew Tablet PO (09:11)
[2022-02-17] MEDS: pantoprazole DR 40 mg Tablet PO (09:11)
[2022-02-17] MEDS: levETIRAcetam 500 mg Tablet PO ×2 (09:11→20:58)
[2022-02-17] MEDS: escitalopram 10 mg Tablet 5 MG PO (09:11)
[2022-02-17] MEDS: HYDROcodone-acetaminophen 5-325 mg Tablet 1 TAB PO ×3 (09:29→20:59)
--- NOTE | 2022-02-17 10:44 | PC.CHAP ---
Pastoral Care Encounter/Spiritual Assessment Type of Contact [] Declined inner tube inserter visit [] Patient/Family/Request visit [] Outpatient visit [] Follow-up visit [] Physician referral [] Code/Alert [x] Routine visit [] Staff referral [] Actively dying [] Patient sleeping [] Family support [] [] Out of room [] Palliative care [] [] Receiving care in room [] Pre-surgical visit [] Trauma [] Long length of stay [x] ICU visit [] Other: Relational/Emotional Strength [] Patient feels connected with others/family/visitors/staff [] Distress [] Loneliness/isolation [] Abandonment Spirituality of Patient [] Person of [place] [] Attends Tenriism of their [place] [] Believes in Prayer [] Reads Bible or Mu-Ism materials [] There are Spiritual issues to be addressed Manager Lab Interventions [x] Prayer [] Active listening [] Non-anxious presence [] Spiritual/emotional support [] Crisis/trauma care [] Spiritual counseling [] Bereavement support [] Provided bereavement packet [] Provided Bible/devotional materials [] Provided toy/stuffed animal, coloring book to patient or family member [] Provided Communion [] Anointing/[place] [] Salvation [x] Completed spiritual assessment [] Other: Impact on Illness or Injury [] Angry [] Fearful [] Anxious [] Often cries [] Exhaustion [] Unable to work [] Unable to attend restoration [] Unable to walk/stand [] Unable to read [] Unable to drive [] Unable to eat/drink [] Unable to sleep [] Unable to be with family [] Patient intubated [] Other: Summary Time spent with patient
[2022-02-17] MEDS: cholecalciferol (vitamin D3) 1,000 unit Tablet 2000 UNIT PO (11:06)
[2022-02-17] MEDS: clopidogrel 75 mg Tablet PO (11:06)
[2022-02-17] MEDS: ferrous sulfate EC 325 mg Tablet PO (11:06)
[2022-02-17] MEDS: tamsulosin 0.4 mg Capsule PO ×2 (11:07→19:52)
--- NOTE | 2022-02-17 11:52 | PM.PN ---
Subjective Subjective: Patient was seen yesterday afternoon, had worsening shortness of breath, was placed on BiPAP, moved to ICU Patient was seen this morning, no fevers, no chills, no nausea, no vomiting, currently in A. fib with RVR, shortness of breath has improved, remains on BiPAP, good urine output overnight has complaints of generalized pain Vitals/I&O/Wt Last Vital Signs Temp 99.4 F 02/17/22 07:30 Pulse 111 H 02/17/22 10:11 Resp 14 02/17/22 09:50 BP 108/68 02/17/22 09:50 Pulse Ox 95 02/17/22 10:11 02/16/22 02/17/22 02/17/22 22:59 06:59 14:59 Intake Total 50 / 814.417 236 / 1050.417 503 / 503 Output Total 1650 / 2315 2225 / 4540 Balance -1600 / -1500.583 -1989 / -3489.583 503 / 503 Weight last 48 hrs Weight 113.511 kg Weight 112.945 kg Physical Exam Const: COMMON NORMALS: no acute distress and patient oriented x3 Resp: COMMON NORMALS: normal respiratory effort, No retractions and No use of accessory muscles AUSCULTATION: crackles Cardio: COMMON NORMALS: S1 normal heart sound present and S2 normal heart sound present RATE: tachycardic RHYTHM: abnormal rhythm irregularly irregular HEART SOUNDS: S1 normal heart sound present and S2 normal heart sound present GI: COMMON NORMALS: Normal to inspection, nondistended, normoactive bowel sounds present, Soft to palpation and non-tender PALPATION: Yes Soft to palpation Extremity: COMMON NORMALS: no pedal edema Neuro: COMMON NORMALS: patient oriented x3 Psych: COMMON NORMALS: mental status grossly normal Urinary Catheter Management: Maciel Latex Free: Cath Placed During This Visit: no Reason for Continuing Indwelling Catheter: Accurate Measurement of Urinary Output in Critically Ill Patients Data : 02/17/22 04:05 02/17/22 04:05 Micro: Microbiology 02/15/22 13:56 Blood Culture - Preliminary Blood NEGATIVE TO DATE 02/15/22 13:56 Blood Culture - Preliminary Blood NEGATIVE TO DATE A&P Assessment and plan (1) Acute on chronic congestive heart failure: Status: Acute (2) CAD (coronary artery disease): Status: Acute Qualifiers: Coronary Disease-Associated Artery/Lesion type: [place] artery [place] vs. transplanted heart: [place] heart Associated angina: without angina Qualified Code(s): I25.10 - Atherosclerotic heart disease of [place] coronary artery without angina pectoris (3) HTN (hypertension), benign: Status: Acute (4) Depression: Status: Chronic Qualifiers: Depression Type: unspecified Qualified Code(s): F32.9 - Major depressive disorder, single episode, unspecified (5) Peripheral vascular disease: Status: Chronic (6) Coronary artery calcification: Status: Chronic (7) Atrial fibrillation with rapid ventricular response: Status: Acute Plan New onset atrial fibrillation -Replace magnesium -Placed on amiodarone drip -Continue Cardizem 60 every 6 -Due to low blood pressures hold metoprolol -Start Eliquis -Full code -Heparin drip for DVT prophylaxis Acute hypoxic respiratory failure secondary to diastolic CHF Diastolic CHF exacerbation -Left ventricular cavity not well visualized. Normal left ?ventricular size, systolic function and wall thickness, with no ?regional wall motion abnormalities. Left ventricular ejection ?fraction is estimated at 55-60 %. -Fluid restrictions 1500 cc -Creatinine up to 2.3, Bumex 1 mg every 12 hours, with metolazone, urine output 4 L -Mag greater than 2, potassium better than 4 -Monitor respiratory status closely -DuoNebs if needed Elevated troponins, likely secondary from CHF, atrial fibrillation, serial EKGs, serial troponins, continue aspirin, statin, Plavix Type 2 diabetes mellitus, glargine 10 units at bedtime, low-dose sliding scale History of CAD, continue home aspirin, Plavix Depression, continue home meds History of COPD, no active wheezing, hold off on steroids History of BPH, continue Flomax Acute on chronic thrombocytopenia, Attestations Medical Necessity Statement*: Patient requires hospitalization for acute hypoxic respiratory failure, CHF exacerbation, diastolic Coding Level of Care Code Acute Non Emergency Services Ambulance Driver for Chg Fwd Diagnoses Acute on chronic congestive heart failure I50.9 CAD (coronary artery disease) I25.10 Coronary Disease-Associated Artery/Lesion type: [place] artery [place] vs. transplanted heart: [place] heart Associated angina: without angina HTN (hypertension), benign I10 Depression F32.9 Depression Type: unspecified Peripheral vascular disease I73.9 Coronary artery calcification I25.10; I25.84 Atrial fibrillation with rapid ventricular response I48.91
[2022-02-17 12:09] LABS: Glucose Point of Care 101 mg/dL (70-110)
[2022-02-17] MEDS: metOLazone 5 MG Tablet 10 MG PO (12:37)
--- NOTE | 2022-02-17 12:51 | PC.NURSE ---
MIDLINE placed LEFT arm.
[2022-02-17 14:13] LABS: Troponin T (5th) Once 37 ng/L (0-15)
[2022-02-17 14:25] LABS: Blood Urea Nitrogen 37 mg/dL (8-23); Calcium 9.9 mg/dL (8.5-10.5); Carbon Dioxide 24 mmol/L (22-29); Chloride 99 mmol/L (98-107); Glomerular Filtration Rate 30.3 mL/min (90-130); Glucose 187 mg/dL (65-115); Magnesium 1.9 mg/dL (1.7-2.3); Osmolality Calculated 296 mOsm/kg (285-295); Sodium 136 mmol/L (136-145)
[2022-02-17 17:32] LABS: Glucose Point of Care 161 mg/dL (70-110)
[2022-02-17] MEDS: atorvastatin 40 mg Tablet 80 MG PO (17:34)
[2022-02-17] MEDS: amiodarone 200 mg Tablet 400 MG PO (17:59)
[2022-02-17] MEDS: cyclobenzaprine 10 mg Tablet 5 MG PO (18:09)
[2022-02-17 20:44] LABS: Glucose Point of Care 233 mg/dL (70-110)
[2022-02-17] MEDS: metoprolol tartrate 25 mg Tablet PO (20:57)
[2022-02-17] MEDS: insulin glargine 100 units/1 mL 10 UNIT SUBCUT (20:58)
[2022-02-18] VITALS (49 sets, daily range): BP systolic 68–165; BP diastolic 48–140; PULSE 73–123; RESP 12–33; TEMP 36.9; O2SAT 88–98
[2022-02-18] MEDS: ipratropium-albuterol 3 mL Neb INHALATION ×4 (03:17→23:23)
--- NOTE | 2022-02-18 03:47 | PC.NURSE ---
Patient refused to have his blood draw this am. Attempted to pull blood from mid line but was unsuccessful. Patient was told it was important to allow us to draw his blood so that we can monitor him appropriately. He still refused.
[2022-02-18] MEDS: dilTIAZem 60 mg Tablet PO ×4 (04:48→23:39)
[2022-02-18 05:13] LABS: ABG PCO2 40.8 mmHg (35-45); ABG PH Result 7.46 (7.35-7.45); Arterial Blood Gas Hematocrit 38.8 % (42-52); Base Excess ABG 4.8 mmol/L (-2.0-2.0); Blood Gas Allen Test Pos; Blood Gas Operator Identificat JB; Blood Gas Sample Site Radial, right; Blood Gas Sample Type Arterial; HCO3 ABG 29.1 mmol/L (22-26); Oxygen Device NC; PO2 ABG 77.9 mmHg (80.0-100.0)
--- NOTE | 2022-02-18 07:00 | XRR_ITS ---
PROCEDURE INFORMATION: Exam: XR Chest Exam date and time: 02/18/2022 4:44 AM Age: 66 years old Clinical indication: Shortness of breath; Patient HX: F/u for persistent SOB. History of copd. TECHNIQUE: Imaging protocol: XR of the chest. Views: 1 view. Total images: 1 COMPARISON: CR XR chest 1V portable [id number] 02/17/2022 4:08 AM FINDINGS: Lungs: Bilateral pulmonary opacities are again noted with the left-sided opacities showing interval improvement. Pleural spaces: Unremarkable. No pleural effusion. No pneumothorax. Heart/Mediastinum: Heart size is stable when compared to the prior exam. Bones/joints: Osseous structures are unchanged from the prior exam. XR/XR chest 1V portable [id number] IMPRESSION: Bilateral pulmonary opacities are again noted with the left-sided opacities showing interval improvement.
[2022-02-18 07:12] LABS: Glucose Point of Care 108 mg/dL (70-110)
[2022-02-18] MEDS: metOLazone 5 MG Tablet 10 MG PO (08:46)
[2022-02-18] MEDS: amiodarone 200 mg Tablet 400 MG PO ×2 (08:47→17:17)
[2022-02-18] MEDS: pantoprazole DR 40 mg Tablet PO (08:51)
[2022-02-18] MEDS: escitalopram 10 mg Tablet 5 MG PO (08:52)
[2022-02-18] MEDS: aspirin 81 mg Chew Tablet PO (08:52)
[2022-02-18] MEDS: bumetanide 0.25 mg/mL SDV 4 mL 1 MG IVP (08:55)
[2022-02-18 09:09] LABS: Basophils % 0.3 %; Eosinophils # 0.2 10^3/uL (0.0-0.8); Eosinophils % 3.3 %; Hematocrit 42.1 % (42.0-52.0); Hemoglobin 13.7 g/dL (11.7-16.6); Lymphocytes # 1.4 10^3/uL (0.8-4.8); Lymphocytes % 22.3 %; Mean Corpuscular HGB Conc 32.5 g/dL (30.0-36.0); Mean Corpuscular Hemoglobin 30.3 pg (28.0-34.0); Mean Corpuscular Volume 93.1 fl (80-94); Mean Platelet Volume 10.8 fL (7.4-10.4); Monocytes # 0.5 10^3/uL (0.2-0.9); Monocytes % 8.5 %; Neutrophils # 3.97 10^3/uL (1.8-7.7); Neutrophils % 64.9 %; Nucleated Red Blood Cells % 0 %; Platelet Count 113 10^3/cmm (130-400); Red Blood Count 4.52 10^6/uL (4.1-5.3); Red Cell Distribution Width 14.1 % (12.1-15.1); White Blood Count 6.1 10^3/uL (4.0-10.0)
[2022-02-18] MEDS: levETIRAcetam 500 mg Tablet PO ×2 (09:25→20:19)
[2022-02-18] MEDS: metoprolol tartrate 25 mg Tablet PO (09:26)
[2022-02-18] MEDS: apixaban 5 mg Tablet PO ×2 (09:26→20:19)
[2022-02-18 09:31] LABS: Slide Review Slide Review Perform
--- NOTE | 2022-02-18 10:01 | PC.SOCIAL ---
IMM Update pg 2 of IMM updated and reviewed w/ patient. Copy provided and Copy placed in chart.
--- NOTE | 2022-02-18 10:05 | PM.PN ---
Subjective Subjective: Patient was seen this morning, currently on 6 L, he is breathing has significantly improved, he is tells me he is doing a lot better, does feel weak, heart rates are better controlled, no chest pain, no palpitations Vitals/I&O/Wt Last Vital Signs Temp 98.4 F 02/18/22 07:45 Pulse 90 02/18/22 07:45 Resp 19 H 02/18/22 07:45 BP 106/65 02/18/22 07:45 Pulse Ox 95 02/18/22 07:45 02/17/22 02/18/22 02/18/22 22:59 06:59 14:59 Intake Total 654.946 / 1393.946 400 / 1793.946 233 / 233 Output Total 2325 / 3575 600 / 4175 Balance -1670.054 / -2181.054 -200 / -2381.054 233 / 233 Physical Exam Const: COMMON NORMALS: no acute distress and patient oriented x3 Resp: COMMON NORMALS: normal respiratory effort, No retractions, No use of accessory muscles and clear to auscultation bilaterally AUSCULTATION: clear to auscultation bilaterally Cardio: COMMON NORMALS: regular rate, regular rhythm, S1 normal heart sound present and S2 normal heart sound present RATE: regular rate RHYTHM: regular rhythm HEART SOUNDS: S1 normal heart sound present and S2 normal heart sound present GI: COMMON NORMALS: Normal to inspection, nondistended, normoactive bowel sounds present, Soft to palpation, non-tender and No hepatosplenomegaly present PALPATION: Yes Soft to palpation and Yes No hepatosplenomegaly present Extremity: COMMON NORMALS: no pedal edema Neuro: COMMON NORMALS: patient oriented x3 Psych: COMMON NORMALS: mental status grossly normal Urinary Catheter Management: Maciel Latex Free: Cath Placed During This Visit: no Reason for Continuing Indwelling Catheter: Accurate Measurement of Urinary Output in Critically Ill Patients Data : 02/18/22 08:30 02/17/22 13:49 A&P Assessment and plan (1) Acute on chronic congestive heart failure: Status: Acute (2) CAD (coronary artery disease): Status: Acute Qualifiers: Coronary Disease-Associated Artery/Lesion type: [place] artery [place] vs. transplanted heart: [place] heart Associated angina: without angina Qualified Code(s): I25.10 - Atherosclerotic heart disease of [place] coronary artery without angina pectoris (3) HTN (hypertension), benign: Status: Acute (4) Depression: Status: Chronic Qualifiers: Depression Type: unspecified Qualified Code(s): F32.9 - Major depressive disorder, single episode, unspecified (5) Peripheral vascular disease: Status: Chronic (6) Coronary artery calcification: Status: Chronic (7) Atrial fibrillation with rapid ventricular response: Status: Acute Plan New onset atrial fibrillation -Replace magnesium -Placed on amiodarone drip, transition to amiodarone 400 twice daily -Continue Cardizem 60 every 6 -Due to low blood pressures hold metoprolol -On Eliquis -Full code -Heparin drip for DVT prophylaxis Acute hypoxic respiratory failure secondary to diastolic CHF Diastolic CHF exacerbation -Left ventricular cavity not well visualized. Normal left ?ventricular size, systolic function and wall thickness, with no ?regional wall motion abnormalities. Left ventricular ejection ?fraction is estimated at 55-60 %. -Fluid restrictions 1500 cc -Creatinine up to 2.2, Bumex 1 mg every 12 hours, with metolazone, urine output 6.7 L -Mag greater than 2, potassium better than 4 -Monitor respiratory status closely -DuoNebs if needed Elevated troponins, likely secondary from CHF, atrial fibrillation, serial EKGs, serial troponins, continue aspirin, statin, Plavix Type 2 diabetes mellitus, glargine 10 units at bedtime, low-dose sliding scale History of CAD, continue home aspirin, Plavix Depression, continue home meds History of COPD, no active wheezing, hold off on steroids History of BPH, continue Flomax Acute on chronic thrombocytopenia, Attestations Medical Necessity Statement*: Patient requires hospitalization for fluid overload, diastolic CHF exacerbation, new onset A. fib, will moved to general medical floors Coding Level of Care Code Acute Senior It Assistant for Chg Fwd Diagnoses Acute on chronic congestive heart failure I50.9 CAD (coronary artery disease) I25.10 Coronary Disease-Associated Artery/Lesion type: [place] artery [place] vs. transplanted heart: [place] heart Associated angina: without angina HTN (hypertension), benign I10 Depression F32.9 Depression Type: unspecified Peripheral vascular disease I73.9 Coronary artery calcification I25.10; I25.84 Atrial fibrillation with rapid ventricular response I48.91
[2022-02-18 11:07] LABS: Glucose Point of Care 138 mg/dL (70-110)
[2022-02-18] MEDS: cholecalciferol (vitamin D3) 1,000 unit Tablet 2000 UNIT PO (11:20)
[2022-02-18] MEDS: clopidogrel 75 mg Tablet PO (11:20)
[2022-02-18] MEDS: ferrous sulfate EC 325 mg Tablet PO (11:20)
[2022-02-18] MEDS: tamsulosin 0.4 mg Capsule PO ×2 (12:34→20:19)
[2022-02-18] MEDS: sodium chloride 0.9% 250 ML IV (13:15)
--- NOTE | 2022-02-18 13:40 | PC.NURSE ---
Patient was sitting upright in chair and reported dizziness, sweating, and aching. Blood pressure dropped to 75/54. HCP was notified and ordered a 250ml bolus of Normal Saline. Patient transferred to bed and is responding to bolus.
[2022-02-18 14:03] LABS: Alanine Aminotransferase 17 U/L (0-41); Albumin Level 4.4 g/dL (3.5-5.2); Alkaline Phosphatase 45 IU/L (40-130); Aspartate Amino Transferase 28 U/L (0-40); Blood Urea Nitrogen 52 mg/dL (8-23); Calcium 10.4 mg/dL (8.5-10.5); Carbon Dioxide 23 mmol/L (22-29); Chloride 98 mmol/L (98-107); Globulin 3.2 g/dL (1.3-4.6); Glomerular Filtration Rate 19.7 mL/min (90-130); Glucose 176 mg/dL (65-115); Osmolality Calculated 300 mOsm/kg (285-295); Phosphorus 5.3 mg/dL (2.5-4.5); Sodium 136 mmol/L (136-145); Total Bilirubin 1.4 mg/dL (0.15-1.2); Total Protein 7.6 g/dL (6.6-8.7)
[2022-02-18 14:24] LABS: Anion Gap 19.8 (5-19); Potassium 4.8 mmol/L (3.5-5.1)
[2022-02-18 14:28] LABS: C Reactive Protein 26.4 mg/L (0.0-4.9)
[2022-02-18] MEDS: HYDROcodone-acetaminophen 5-325 mg Tablet 1 TAB PO (14:33)
[2022-02-18 14:52] LABS: NT Pro B Type Natriuretic Pept 2510 pg/mL (0-125); Procalcitonin 0.13 ng/mL (0-0.5)
--- NOTE | 2022-02-18 15:20 | PC.NURSE ---
Patient reported dyspnea following 250ml bolus to treat hypotension. Patient was placed on Bipap and given breathing treatment. Spo2 recovered from mid 80s to 95, Patient resting comfortably.
[2022-02-18 17:08] LABS: Glucose Point of Care 148 mg/dL (70-110)
[2022-02-18] MEDS: insulin lispro 100 unit/1 mL SUBCUT (17:15)
[2022-02-18] MEDS: atorvastatin 40 mg Tablet 80 MG PO (17:16)
[2022-02-18 20:18] LABS: Glucose Point of Care 175 mg/dL (70-110)
[2022-02-18] MEDS: insulin glargine 100 units/1 mL 10 UNIT SUBCUT (20:19)
[2022-02-19] VITALS (29 sets, daily range): BP systolic 90–141; BP diastolic 55–95; PULSE 75–122; RESP 12–32; TEMP 36.6–37.4; O2SAT 87–97
[2022-02-19 05:03] LABS: NT Pro B Type Natriuretic Pept 2625 pg/mL (0-125); Procalcitonin 0.12 ng/mL (0-0.5)
[2022-02-19 05:19] LABS: C Reactive Protein 22.4 mg/L (0.0-4.9); Magnesium 1.8 mg/dL (1.7-2.3)
[2022-02-19] MEDS: dilTIAZem 60 mg Tablet PO (05:54)
[2022-02-19 07:37] LABS: Glucose Point of Care 126 mg/dL (70-110)
[2022-02-19] MEDS: ipratropium-albuterol 3 mL Neb INHALATION ×5 (07:40→23:25)
[2022-02-19] MEDS: sodium chloride 0.9% 1,000 ML 75 ML IV (07:54)
[2022-02-19] MEDS: levETIRAcetam 500 mg Tablet PO ×2 (08:19→21:07)
[2022-02-19] MEDS: apixaban 5 mg Tablet PO ×2 (08:20→21:08)
[2022-02-19] MEDS: escitalopram 10 mg Tablet 5 MG PO (08:20)
[2022-02-19] MEDS: aspirin 81 mg Chew Tablet PO (08:20)
[2022-02-19] MEDS: amiodarone 200 mg Tablet 400 MG PO ×2 (08:20→17:40)
[2022-02-19] MEDS: pantoprazole DR 40 mg Tablet PO (08:20)
[2022-02-19] MEDS: dilTIAZem 60 mg Tablet 90 MG PO ×3 (09:23→21:07)
--- NOTE | 2022-02-19 09:33 | PM.PN ---
Subjective Subjective: Patient was seen this morning, yesterday afternoon, he had episodes of hypotension when ambulating, no loss of consciousness, no chest pain, no shortness of breath, he was given 500 cc bolus, blood pressures remained normotensive throughout This morning his blood pressure still soft, creatinine up to 3.2, he tells me he is feeling a lot better, no lightheadedness, dizziness, no shortness of breath, remains on 6 L Vitals/I&O/Wt Last Vital Signs Temp 98.4 F 02/18/22 07:45 Pulse 97 02/19/22 07:45 Resp 18 02/19/22 07:42 BP 94/61 02/19/22 03:00 Pulse Ox 96 02/19/22 07:42 02/18/22 02/19/22 02/19/22 22:59 06:59 14:59 Intake Total 1083 / 1629.054 200 / 1829.054 Output Total 400 / 1150 600 / 1750 Balance 683 / 479.054 -400 / 79.054 Physical Exam Const: COMMON NORMALS: no acute distress and patient oriented x3 Resp: COMMON NORMALS: normal respiratory effort, No retractions, No use of accessory muscles and clear to auscultation bilaterally AUSCULTATION: clear to auscultation bilaterally Cardio: COMMON NORMALS: regular rate, regular rhythm, S1 normal heart sound present and S2 normal heart sound present RATE: regular rate RHYTHM: regular rhythm HEART SOUNDS: S1 normal heart sound present and S2 normal heart sound present GI: COMMON NORMALS: Normal to inspection, nondistended, normoactive bowel sounds present, Soft to palpation, non-tender and No hepatosplenomegaly present PALPATION: Yes Soft to palpation and Yes No hepatosplenomegaly present Extremity: COMMON NORMALS: no pedal edema Neuro: COMMON NORMALS: patient oriented x3 Psych: COMMON NORMALS: mental status grossly normal Urinary Catheter Management: Maciel Latex Free: Cath Placed During This Visit: no Reason for Continuing Indwelling Catheter: Accurate Measurement of Urinary Output in Critically Ill Patients Data : 02/18/22 08:30 02/18/22 13:25 A&P Assessment and plan (1) Acute on chronic congestive heart failure: Status: Acute (2) CAD (coronary artery disease): Status: Acute Qualifiers: Coronary Disease-Associated Artery/Lesion type: [place] artery [place] vs. transplanted heart: [place] heart Associated angina: without angina Qualified Code(s): I25.10 - Atherosclerotic heart disease of [place] coronary artery without angina pectoris (3) HTN (hypertension), benign: Status: Acute (4) Depression: Status: Chronic Qualifiers: Depression Type: unspecified Qualified Code(s): F32.9 - Major depressive disorder, single episode, unspecified (5) Peripheral vascular disease: Status: Chronic (6) Coronary artery calcification: Status: Chronic (7) Atrial fibrillation with rapid ventricular response: Status: Acute Plan New onset atrial fibrillation -Replace magnesium -Continue amiodarone 400 twice daily -Increase Cardizem to 90 every 6 -Due to low blood pressures hold metoprolol -On Eliquis -Full code -Heparin drip for DVT prophylaxis Hypotension secondary to diuresis, -6.7 L, will give him another liter back, continue to ambulate, monitor pressures [place] secondary to diuresis, hypotension, will give patient another liter of normal saline, monitor urine output, monitor creatinine Acute hypoxic respiratory failure secondary to diastolic CHF Diastolic CHF exacerbation -Left ventricular cavity not well visualized. Normal left ?ventricular size, systolic function and wall thickness, with no ?regional wall motion abnormalities. Left ventricular ejection ?fraction is estimated at 55-60 %. -Fluid restrictions 1500 cc -Creatinine up to 3.2, hold Bumex 1 mg every 12 hours, hold metolazone, urine output 6.7 L -Mag greater than 2, potassium better than 4 -Monitor respiratory status closely -DuoNebs if needed Elevated troponins, likely secondary from CHF, atrial fibrillation, serial EKGs, serial troponins, continue aspirin, statin, Plavix Type 2 diabetes mellitus, glargine 10 units at bedtime, low-dose sliding scale History of CAD, continue home aspirin, Plavix Depression, continue home meds History of COPD, no active wheezing, hold off on steroids History of BPH, continue Flomax Acute on chronic thrombocytopenia, Attestations Medical Necessity Statement*: Patient requires hospitalization for diastolic CHF exacerbation, now with hypotension secondary to diuresis Coding Level of Care Code Acute Crew Team Member for g Fwd Diagnoses Acute on chronic congestive heart failure I50.9 CAD (coronary artery disease) I25.10 Coronary Disease-Associated Artery/Lesion type: [place] artery [place] vs. transplanted heart: [place] heart Associated angina: without angina HTN (hypertension), benign I10 Depression F32.9 Depression Type: unspecified Peripheral vascular disease I73.9 Coronary artery calcification I25.10; I25.84 Atrial fibrillation with rapid ventricular response I48.91
--- NOTE | 2022-02-19 09:47 | PC.NURSE ---
up in chair report called and transfered to room 257 per wheelchair
[2022-02-19 12:20] LABS: Glucose Point of Care 141 mg/dL (70-110)
[2022-02-19] MEDS: ferrous sulfate EC 325 mg Tablet PO (12:30)
[2022-02-19] MEDS: cholecalciferol (vitamin D3) 1,000 unit Tablet 2000 UNIT PO (12:32)
[2022-02-19] MEDS: clopidogrel 75 mg Tablet PO (12:33)
[2022-02-19] MEDS: tamsulosin 0.4 mg Capsule PO ×2 (12:33→21:07)
[2022-02-19 17:26] LABS: Glucose Point of Care 125 mg/dL (70-110)
[2022-02-19] MEDS: atorvastatin 40 mg Tablet 80 MG PO (17:40)
[2022-02-19] MEDS: insulin glargine 100 units/1 mL 10 UNIT SUBCUT (21:34)
[2022-02-20] VITALS (11 sets, daily range): BP systolic 125–150; BP diastolic 70–83; PULSE 77–112; RESP 17–18; TEMP 36.6–37.1; O2SAT 92–97
[2022-02-20] MEDS: dilTIAZem 60 mg Tablet 90 MG PO ×3 (03:32→14:01)
[2022-02-20] MEDS: ipratropium-albuterol 3 mL Neb INHALATION ×2 (03:44→11:42)
[2022-02-20 06:25] LABS: Glucose Point of Care 180 mg/dL (70-110)
[2022-02-20 06:26] LABS: Glucose Point of Care 124 mg/dL (70-110)
[2022-02-20 06:45] LABS: Alanine Aminotransferase 16 U/L (0-41); Albumin Level 4.4 g/dL (3.5-5.2); Alkaline Phosphatase 41 IU/L (40-130); Aspartate Amino Transferase 19 U/L (0-40); Blood Urea Nitrogen 46 mg/dL (8-23); C Reactive Protein 24.4 mg/L (0.0-4.9); Calcium 10.2 mg/dL (8.5-10.5); Carbon Dioxide 24 mmol/L (22-29); Chloride 99 mmol/L (98-107); Globulin 2.2 g/dL (1.3-4.6); Glomerular Filtration Rate 27.4 mL/min (90-130); Glucose 131 mg/dL (65-115); Magnesium 1.9 mg/dL (1.7-2.3); Osmolality Calculated 302 mOsm/kg (285-295); Sodium 139 mmol/L (136-145); Total Bilirubin 1.6 mg/dL (0.15-1.2); Total Protein 6.6 g/dL (6.6-8.7)
[2022-02-20 06:47] LABS: Basophils % 0.3 %; Eosinophils # 0.2 10^3/uL (0.0-0.8); Eosinophils % 3.3 %; Hematocrit 36.8 % (42.0-52.0); Hemoglobin 12.1 g/dL (11.7-16.6); Lymphocytes # 1.3 10^3/uL (0.8-4.8); Lymphocytes % 20.8 %; Mean Corpuscular HGB Conc 32.9 g/dL (30.0-36.0); Mean Corpuscular Volume 91.3 fl (80-94); Mean Platelet Volume 10.4 fL (7.4-10.4); Monocytes # 0.5 10^3/uL (0.2-0.9); Monocytes % 8.3 %; Neutrophils # 4.12 10^3/uL (1.8-7.7); Neutrophils % 67.1 %; Nucleated Red Blood Cells % 0 %; Platelet Count 128 10^3/cmm (130-400); Red Blood Count 4.03 10^6/uL (4.1-5.3); Red Cell Distribution Width 13.6 % (12.1-15.1); White Blood Count 6.1 10^3/uL (4.0-10.0)
[2022-02-20 07:24] LABS: NT Pro B Type Natriuretic Pept 2227 pg/mL (0-125)
[2022-02-20] MEDS: aspirin 81 mg Chew Tablet PO (09:41)
[2022-02-20] MEDS: apixaban 5 mg Tablet PO (09:41)
[2022-02-20] MEDS: amiodarone 200 mg Tablet 400 MG PO (09:41)
[2022-02-20] MEDS: escitalopram 10 mg Tablet 5 MG PO (09:41)
[2022-02-20] MEDS: pantoprazole DR 40 mg Tablet PO (09:41)
[2022-02-20] MEDS: levETIRAcetam 500 mg Tablet PO (09:41)
--- NOTE | 2022-02-20 10:56 | PC.SOCIAL ---
IMM Update Pg. 2 of IMM updated and reviewed with patient, who verbalized understanding. Copy provided.
[2022-02-20 11:30] LABS: Glucose Point of Care 241 mg/dL (70-110)
[2022-02-20] MEDS: ferrous sulfate EC 325 mg Tablet PO (11:30)
[2022-02-20] MEDS: cholecalciferol (vitamin D3) 1,000 unit Tablet 2000 UNIT PO (11:30)
[2022-02-20] MEDS: clopidogrel 75 mg Tablet PO (11:31)
[2022-02-20] MEDS: tamsulosin 0.4 mg Capsule PO (11:31)
[2022-02-20] MEDS: insulin lispro 100 unit/1 mL SUBCUT (12:32)
--- NOTE | 2022-02-20 17:02 | PM.DCS ---
Discharge Providers Date of Admission: 02/15/22 16:00 Date of Discharge: February 20, 2022 Attending Provider at Admission: Hari Antonio MD Attending Provider at Discharge: Pasquale Lentz Primary Care Provider: Fer Musa DO Diagnoses at Discharge Discharge Diagnosis (1) Acute on chronic congestive heart failure: Status: Acute (2) CAD (coronary artery disease): Status: Acute Qualifiers: Coronary Disease-Associated Artery/Lesion type: [place] artery [place] vs. transplanted heart: [place] heart Associated angina: without angina Qualified Code(s): I25.10 - Atherosclerotic heart disease of [place] coronary artery without angina pectoris (3) HTN (hypertension), benign: Status: Acute (4) Depression: Status: Chronic Qualifiers: Depression Type: unspecified Qualified Code(s): F32.9 - Major depressive disorder, single episode, unspecified Permanent problem details: hospitalization 04/2021 (5) Peripheral vascular disease: Status: Chronic (6) Coronary artery calcification: Status: Chronic (7) Atrial fibrillation with rapid ventricular response: Status: Acute Reason for Visit Reason for Visit: DYSPNEA Hospital Course Hospital Course Pleasant 66-year-old gentleman who presented with dyspnea, with finding of A. fib with RVR on admission, required treatment with Cardizem drip, transition to oral Cardizem, initially continued on metoprolol, but with hypotensive response metoprolol was discontinued. He was treated with anticoagulation with heparin drip initially, subsequently transition to Eliquis. Received diuresis with Lasix, maintained on 1500 mL fluid restriction for acute diastolic CHF exacerbation. He did well with improvement in symptoms. Heart rates eventually controlled well with oral amiodarone and Cardizem. Diuretics were transiently held due to worsening renal function. Creatinine came up to as high as 3.2. He was given some fluid back. Creatinine improved to 2.4. He is continued on Lasix as needed. He is asked for now to hold losartan. He also reports that he has been taking ibuprofen 800 mg tablets at home for pain/arthritis. He is asked to discontinue NSAIDs. Please reassess renal function at next visit. Continues with as needed oxygen at discharge. At the time of my visit was comfortable at rest on room air. He is continued on amiodarone, Cardizem, Eliquis for atrial fibrillation. Please monitor lungs, liver, thyroid, eyes with amiodarone therapy. Continue to monitor thrombocytopenia in setting of anticoagulation. To avoid excessive risk of bleeding aspirin is stopped he is continued on Plavix. Physical Exam Const: COMMON NORMALS: alert GENERAL APPEARANCE: cooperative ORIENTATION/CONSCIOUSNESS: Yes awake HENMT: COMMON NORMALS: normocephalic, EAC's normal, Normal external nose present and moist oral mucous membranes HEAD & SCALP: normocephalic NOSE: Normal external nose present EXTERNAL AUDITORY CANAL: EAC's normal Neck/C-Spine: COMMON NORMALS: no meningeal signs Chest: CHEST: Yes Symmetrical chest wall rise Resp: COMMON NORMALS: clear to auscultation bilaterally AUSCULTATION: clear to auscultation bilaterally Cardio: COMMON NORMALS: regular rate, regular rhythm and No murmurs present (Cardio) RATE: regular rate RHYTHM: regular rhythm GI: COMMON NORMALS: Normal to inspection, nondistended, normoactive bowel sounds present, Soft to palpation and non-tender PALPATION: Yes Soft to palpation Extremity: COMMON NORMALS: no pedal edema OTHER: L BKA Neuro: COMMON NORMALS: moves all extremities SENSORIUM/ORIENTATION: Yes alert MENINGEAL SIGNS: Yes no meningeal signs Psych: COMMON NORMALS: mental status grossly normal Skin: COMMON NORMALS: no wounds RASHES: no rashes Urinary Catheter Management: Maciel Latex Free: Cath Placed During This Visit: yes, but has since been removed by the nurse Reason for Continuing Indwelling Catheter: Decision to DC Catheter Date Urinary Catheter Removed: 02/20/22 Time Urinary Catheter Discontinued: 14:52 Discharge Data Studies Completed and Pending Completed Studies During Hospitalization Category Date Time Status XR chest 1V portable [id number] Routine Exams 02/16/22 15:09 Completed XR chest 1V portable [id number] Routine Exams 02/17/22 07:00 Completed XR chest 1V portable [id number] Routine Exams 02/18/22 07:00 Completed XR chest 1V portable [id number] Stat Exams 02/15/22 23:12 Completed XR chest 1V portable [id number] Urgent Exams 02/15/22 12:24 Completed CV. echo complete* [id number] Routine Ultrasound 02/16/22 Completed Pending at discharge Category Date Time Status C Reactive Protein AM LABS Lab 02/21/22 04:00 Ordered C Reactive Protein AM LABS Lab 02/22/22 04:00 Ordered Complete Blood Count w/Auto AM LABS Lab 02/21/22 04:00 Ordered Complete Blood Count w/Auto AM LABS Lab 02/21/22 04:00 Ordered Complete Blood Count w/Auto AM LABS Lab 02/22/22 04:00 Ordered Comprehensive Metabolic Panel AM LABS Lab 02/21/22 04:00 Ordered Comprehensive Metabolic Panel AM LABS Lab 02/22/22 04:00 Ordered Magnesium AM LABS Lab 02/21/22 04:00 Ordered Magnesium AM LABS Lab 02/22/22 04:00 Ordered NT Pro B Type Natriuretic Pept QAM Lab 02/21/22 06:00 Ordered NT Pro B Type Natriuretic Pept QAM Lab 02/22/22 06:00 Ordered Phosphorus AM LABS Lab 02/21/22 04:00 Ordered Phosphorus AM LABS Lab 02/22/22 04:00 Ordered Radiology Impressions Chest X-Ray 02/18/22 07:00 IMPRESSION: Bilateral pulmonary opacities are again noted with the left-sided opacities showing interval improvement. Laboratory Results WBC 6.1 10^3/uL (4.0-10.0) 02/20/22 05:42 Corrected WBC Cancelled 02/19/22 03:52 RBC 4.03 10^6/uL (4.1-5.3) L 02/20/22 05:42 Hgb 12.1 g/dL (11.7-16.6) 02/20/22 05:42 Hct 36.8 % (42.0-52.0) L 02/20/22 05:42 MCV 91.3 fl (80-94) 02/20/22 05:42 MCH 30.0 pg (28.0-34.0) 02/20/22 05:42 MCHC 32.9 g/dL (30.0-36.0) 02/20/22 05:42 RDW 13.6 % (12.1-15.1) 02/20/22 05:42 Plt Count 128 10^3/cmm (130-400) L 02/20/22 05:42 MPV 10.4 fL (7.4-10.4) 02/20/22 05:42 Gran % Cancelled 02/19/22 03:52 Neut % (Auto) 67.1 % 02/20/22 05:42 Lymph % (Auto) 20.8 % 02/20/22 05:42 Yancey % (Auto) 8.3 % 02/20/22 05:42 Eos % (Auto) 3.3 % 02/20/22 05:42 Baso % (Auto) 0.3 % 02/20/22 05:42 Neut # (Auto) 4.12 10^3/uL (1.8-7.7) 02/20/22 05:42 Lymph # (Auto) 1.3 10^3/uL (0.8-4.8) 02/20/22 05:42 [place]ancey # (Auto) 0.5 10^3/uL (0.2-0.9) 02/20/22 05:42 Eos # (Auto) 0.2 10^3/uL (0.0-0.8) 02/20/22 05:42 Baso # (Auto) 0.0 10^3/uL (0.0-0.1) 02/20/22 05:42 Absolute Gran (auto) Cancelled 02/19/22 03:52 Nucleated RBC % (auto) 0 % 02/20/22 05:42 Nucleated RBCs # 0.0 /100WBC 02/20/22 05:42 PT 14.10 SECONDS (12.1-14.9) 02/15/22 13:56 INR 1.06 (0.8-1.2) 02/15/22 13:56 APTT 58.5 SECONDS (23.9-36.7) H 02/15/22 13:56 Specimen Type Arterial 02/18/22 05:00 Sample Site Radial, right 02/18/22 05:00 ABG pH 7.46 (7.35-7.45) H 02/18/22 05:00 ABG pCO2 40.8 mmHg (35-45) 02/18/22 05:00 ABG pO2 77.9 mmHg (80.0-100.0) L 02/18/22 05:00 ABG HCO3 29.1 mmol/L (22-26) H 02/18/22 05:00 ABG O2 Saturation > 100.0 02/16/22 15:35 ABG Base Excess 4.8 mmol/L (-2.0-2.0) H 02/18/22 05:00 Mich Test Pos 02/18/22 05:00 A-a O2 Gradient 32.9 mmHg (5-10) H 02/16/22 15:35 Hematocrit 38.8 % (42-52) L 02/18/22 05:00 Hgb O2 Saturation 98.5 % (95-100) 02/16/22 15:35 Carboxyhemoglobin 0.9 %THgb (0.4-20.1) 02/16/22 15:35 Methemoglobin 0.8 % (0.4-1.5) 02/16/22 15:35 Total Hemoglobin 13.1 g/dL (14-18) L 02/16/22 15:35 Sodium 138.0 mmol/L (131-143) 02/16/22 15:35 Potassium 4.8 mmol/L (3.5-5.0) 02/16/22 15:35 Glucose 178.0 mg/dL (70-115) H 02/16/22 15:35 Ionized Calcium 1.3 mmol/L (1.1-1.4) 02/16/22 15:35 O2 Delivery Device Nc 02/18/22 05:00 O2 Liters/Min 5.0 % 02/18/22 05:00 FiO2 40.0 % 02/17/22 04:06 Manufacture Specialist ID [email or web address] 02/18/22 05:00 Sodium 139 mmol/L (136-145) 02/20/22 05:42 Potassium 4.0 mmol/L (3.5-5.1) 02/20/22 05:42 Chloride 99 mmol/L (98-107) 02/20/22 05:42 Carbon Dioxide 24 mmol/L (22-29) 02/20/22 05:42 Anion Gap 20.0 (5-19) H 02/20/22 05:42 BUN 46 mg/dL (8-23) H 02/20/22 05:42 Creatinine 2.4 mg/dL (0.7-1.2) H 02/20/22 05:42 GFR Calculation 27.4 mL/min (90-130) L 02/20/22 05:42 Glucose 131 mg/dL (65-115) H 02/20/22 05:42 POC Glucose 241 mg/dL (70-110) H 02/20/22 11:28 Calculated Osmolality 302 mOsm/kg (285-295) H 02/20/22 05:42 Lactate 2.1 mmol/L (0.5-2.2) 02/16/22 15:40 Calcium 10.2 mg/dL (8.5-10.5) 02/20/22 05:42 Phosphorus 3.0 mg/dL (2.5-4.5) 02/20/22 05:42 Magnesium 1.9 mg/dL (1.7-2.3) 02/20/22 05:42 Total Bilirubin 1.6 mg/dL (0.15-1.2) H 02/20/22 05:42 AST 19 U/L (0-40) 02/20/22 05:42 ALT 16 U/L (0-41) 02/20/22 05:42 Alkaline Phosphatase 41 IU/L (40-130) 02/20/22 05:42 Troponin T Gen 5 ng/L 37 ng/L (0-15) H 02/17/22 13:49 Troponin T Baseline 27 ng/L (0-15) H 02/16/22 15:40 Troponin T 120 Minute 28.42 ng/L (0-15) H 02/15/22 17:48 Delta Troponin T 1.42 ABS# (0-10) 02/15/22 17:48 Troponin T Hi Sens 6Hr 26.81 ng/L (0-15) H 02/15/22 21:25 Troponin T Hi Sens 6Hr Delta -0.19 ng/L (0-12) L 02/15/22 21:25 C-Reactive Protein 24.4 mg/L (0.0-4.9) H 02/20/22 05:42 NT-Pro-B Natriuret Pep 2227 pg/mL (0-125) H 02/20/22 05:42 Total Protein 6.6 g/dL (6.6-8.7) 02/20/22 05:42 Albumin 4.4 g/dL (3.5-5.2) 02/20/22 05:42 Globulin 2.2 g/dL (1.3-4.6) 02/20/22 05:42 Procalcitonin 0.12 ng/mL (0-0.5) 02/19/22 03:52 TSH 3.17 uIU/mL (0.27-4.20) 02/15/22 15:08 Coronavirus 229E (PCR) Not detected (NOT DETECT) 02/15/22 15:45 SARS-CoV-2 (PCR) Not detected (NOT DETECT) 02/15/22 15:45 Vitals Last Vital Signs Temp 98.3 F 02/20/22 16:00 Pulse 83 02/20/22 16:00 Resp 18 02/20/22 16:00 BP 125/83 02/20/22 16:00 Pulse Ox 97 02/20/22 16:00 Discharge Plan Discharge Patient Disposition: Home Health Service Condition: Stable Prescriptions: New Eliquis 5 mg Tablet 5 mg PO BID@0900,2100 Qty: 180 0RF diltiazem HCl 360 mg capsule,extended release 24hr 360 mg PO DAILY Qty: 90 0RF amiodarone [Pacerone] 200 mg Tablet 200 mg PO BID Qty: 180 0RF Rx Instructions: 200mg (1 tab) twice a day for 2 weeks, then 100mg (0.5 tab) twice a day Continued amlodipine 5 mg tablet 5 mg PO DAILY Qty: 90 3RF Stiolto Respimat 2.5-2.5 mcg/actuation mist 2 puff inhalation DAILY Qty: 4 3RF escitalopram oxalate 10 mg Tablet 5 mg PO DAILY Qty: 30 0RF atorvastatin 80 mg Tablet 80 mg PO QPM 0RF ferrous sulfate 325 mg (65 mg iron) Tablet 325 mg PO DAILY@1100 0RF omeprazole 20 mg Capsule,Delayed Release(Dr/Ec) 40 mg PO DAILY@1100 0RF Multi-Vitamin HP/Minerals Capsule 1 cap PO DAILY@1100 0RF cholecalciferol (vitamin D3) 2,000 unit Tablet 2,000 unit PO DAILY@1100 0RF pentoxifylline 400 mg tablet extended release 400 mg PO TID 0RF senna 8.6 mg Capsule 8.6 mg PO DAILY PRN (Reason: Constipation) 0RF levetiracetam [Keppra] 500 mg tablet 500 mg PO BID Qty: 60 0RF ipratropium-albuterol 0.5 mg-3 mg(2.5 mg base)/3 mL Solution For Nebulization 3 ml inhalation Q6H PRN (Reason: Shortness Of Breath) Qty: 60 0RF clopidogrel [Plavix] 75 mg Tablet 75 mg PO DAILY@1100 0RF albuterol sulfate 90 mcg/actuation Hfa Aerosol Inhaler 2 puff INHALATION Q4H PRN (Reason: Shortness Of Breath) 0RF insulin aspart U-100 [Novolog Flexpen U-100 Insulin] 100 unit/mL (3 mL) Insulin Pen 17 unit SUBCUT BEDTIME PRN (Reason: blood sugar) 0RF Lantus Solostar U-100 Insulin 100 unit/mL (3 mL) insulin pen 17 unit SUBCUT BEDTIME 0RF tamsulosin 0.4 mg capsule 0.4 mg PO BID@1099,1999 0RF fluticasone propionate 50 mcg/actuation [place],Suspension 2 spray INTRANASAL DAILY PRN (Reason: Allergy Symptoms) 0RF furosemide [Lasix] 20 mg tablet 20 mg PO QAM PRN (Reason: Edema) 0RF ipratropium-albuterol 0.5 mg-3 mg(2.5 mg base)/3 mL solution for nebulization 3 ml inhalation Q4H PRN (Reason: shortness of breath or wheezing) Qty: 180 0RF Rx Instructions: until breathing returns to target peak flow/parameters amoxicillin 500 mg capsule 500 mg PO TID 0RF Rx Instructions: x 7 days Held losartan 100 mg tablet 50 mg PO DAILY@1100 0RF Hold Instructions: Resume on 03/06/22. Discontinued metoprolol tartrate 50 mg tablet 25 mg PO BID@1099,1999 0RF aspirin 81 mg Tablet,Chewable 81 mg PO DAILY 0RF Discharge Orders: Discharge Order (Routine); Ordered 02/20/22 Ordered By: Pasquale Lentz Referrals: [facility] [Outside] Fer Musa, [Primary Care Provider] - (Please call Dr. Musa's office tomorrow morning and schedule an appointment to be seen this week.) Discharge Diet: Cardiac Discharge Activity: Increase activity as tolerated Patient Instructions: Amiodarone (By mouth), Apixaban (By mouth) (Eliquis), A-fib (Atrial Fibrillation) (GEN) Activity Restrictions/Additional Instructions: Please maintain fluid restriction of 1500 mL/day (a little over a quart and a half in a day) Monitor oxygen saturation, target saturation 92%. Keep oxygen as needed. Please follow-up with your primary doctor for reassessment of control of atrial fibrillation. Continue amiodarone 200 mg twice a day for 2 weeks then switch to 100 mg twice a day. Please have your primary doctor monitor your amiodarone therapy, including your lungs, liver, thyroid, eyes. If you experience bleeding which is not resolving, please do not take next dose of Eliquis and seek medical attention. Please note that while you are started on Eliquis to reduce the risk of stroke and continued on Plavix, your aspirin is stopped. Please have your primary doctor continue to follow your platelet levels which are below normal and may contribute to risk of bleeding should they decrease substantially. Please stop ibuprofen, avoid NSAIDs as these may contribute to worsening of your kidney injury. Please have your primary doctor reassess your kidney function at next visit. Please hold your losartan for now until your kidney function is found stable and your primary doctor finds that it is safe to resume. Discharge Attestations Time Spent in Discharge Care*: greater than 30 min Status at Discharge: Cognitive status at discharge: cognitively intact, Behavioral status at discharge: cooperative and can be uncooperative, Quality Metrics Clinical Quality Measures [ No reported AMI, CVA or VTE this stay] Coding Level of Care Code Acute Chg FW DC note Diagnoses Acute on chronic congestive heart failure I50.9 CAD (coronary artery disease) I25.10 Coronary Disease-Associated Artery/Lesion type: [place] artery [place] vs. transplanted heart: [place] heart Associated angina: without angina HTN (hypertension), benign I10 Depression F32.9 Depression Type: unspecified Peripheral vascular disease I73.9 Coronary artery calcification I25.10; I25.84 Atrial fibrillation with rapid ventricular response I48.91
[2022-02-20 17:22] LABS: Glucose Point of Care 110 mg/dL (70-110)
--- NOTE | 2022-02-20 18:01 | PC.NURSE ---
patient verbalized understanding of discharge instructions, home medications, and follow up appointments. Maciel catheter removed and patient voided in urinal 200 mL prior to d/c. PICC line removed and pressure applied for 5 minutes, then a pressure dressing was applied. dressing monitored for excessive bleeding and instructed patient to leave dressing on for at least an hour. pt verbalized understanding.
== END 2022-02-20 17:20 | disposition home health service (06) | DRG 291 ==
LOC: ER 16:00 → CSU 16:21 → ICU 02-16 17:21 → MEDSURG 02-19 09:33
PROVIDERS: Internal Medicine; Admitting Provider Family Medicine; Emergency Provider Emergency Medicine; PCP Emergency Medicine Emergency Medical Services; Visit Provider Internal Medicine
DX: I13.0 Hypertensive heart and chronic kidney disease with heart failure and stage 1 through stage 4 chronic kidney disease, or unspecified chronic kidney disease (principal); I50.33 Acute on chronic diastolic (congestive) heart failure; J96.01 Acute respiratory failure with hypoxia; I48.91 Unspecified atrial fibrillation; N18.30 Chronic kidney disease, stage 3 unspecified; E11.22 Type 2 diabetes mellitus with diabetic chronic kidney disease; E78.5 Hyperlipidemia, unspecified; I25.10 Atherosclerotic heart disease of native coronary artery without angina pectoris; E11.51 Type 2 diabetes mellitus with diabetic peripheral angiopathy without gangrene; Z89.612 Acquired absence of left leg above knee; J44.9 Chronic obstructive pulmonary disease, unspecified; Z86.73 Personal history of transient ischemic attack (TIA), and cerebral infarction without residual deficits; Z86.718 Personal history of other venous thrombosis and embolism; Z87.891 Personal history of nicotine dependence; I08.0 Rheumatic disorders of both mitral and aortic valves; F32.A Depression, unspecified; D69.6 Thrombocytopenia, unspecified; Z79.51 Long term (current) use of inhaled steroids; Z79.4 Long term (current) use of insulin; Z79.02 Long term (current) use of antithrombotics/antiplatelets
CPT/HCPCS: 36415; 36416; 36569; 36600; 51702; 71045; 80048; 80051; 80053; 82330; 82803; 82805; 82962; 83605; 83735; 83880; 84100; 84145; 84443; 84484; 85025; 85610; 85730; 86140; 87040; 87635; 93005; 93306; 94640; 94660; 94664; 96365; 96367; 96372; 96375; 96376; 97116; 97162; 97165; 97535; 99285; C1751; C9113; J0282; J1815 ×2; J1940; J3475; J3490; J7030; J7040; J7050; J7060; P9047

== ENCOUNTER 2022-03-06 10:44 | Emergency (ER) | payer OTHER, MEDICARE, SELFPAY ==
[2022-03-06 10:57] VITALS: BP 113/76; PULSE 94; RESP 20; TEMP 36.2; O2SAT 96; BMI 33.7
--- NOTE | 2022-03-06 11:21 | XR_ITS ---
WS: [id number] PORTABLE CHEST HISTORY: dyspnea/cough COMPARISON: 02/18/2022 Lungs are clear and well expanded. No pleural effusion or pneumothorax. Cardiac size: Normal. Mediastinum/Aorta: Mild atherosclerosis aorta. Advanced degenerative changes at the LEFT glenohumeral joint from arthritis. XR/XR chest 1V portable [id number] IMPRESSION: Unremarkable portable chest.
--- NOTE | 2022-03-06 11:22 | ECG_ITS ---
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 Measurements Intervals [place] Rate: 85 P: [place]: QRS: -21 QRSD: 94 T: 62 QT: 367 QTc: 438 Interpretive Statements ATRIAL FIBRILLATION BORDERLINE LEFT AXIS DEVIATION [QRS AXIS < -20] Compared to ECG 02/16/2022 21:36:39 Myocardial infarct finding no longer present Electronically Signed On 03-06-2022 22:05:05 CDT by Eloy Otoole M.D. [id number]
--- NOTE | 2022-03-06 12:51 | ED_ITS ---
HPI - SOB/Dyspnea General: Chief Complaint: Shortness of Breath/Dyspnea Stated Complaint: sob Time Seen by Provider: 03/06/22 11:20 Source: patient Mode of arrival: ambulatory Limitations: no limitations History of Present Illness: HPI Narrative: 66-year-old male presents emergency room complaining of shortness of breath. Patient has COPD and CHF as well as chronic renal renal disease. Over the last couple days he has felt little bit more short of breath is a nonproductive cough denies fever sweats chills no chest pain. On arrival here his oxygen sats are normal on room air. MD elicited complaint: shortness of breath Pertinent past history: COPD Onset (ago): minute(s) Timing: constant Severity: mild Exacerbating factors: exertion and coughing Relieving factors: oxygen and rest Known history of: COPD Associated symptoms: Reports chest congestion and cough; Deny abdominal pain, chest pain, diaphoresis, dizziness, extremity pain, fever(s), hemoptysis, lightheadedness, myalgias, nausea, orthopnea, palpitations, paresthesias, polydipsia, polyuria, rash, sense of impending doom, syncope or vomiting Treatment prior to arrival: oxygen and bronchodilator Review of Systems Const: Denies: fever(s), chills or diaphoresis Card: Denies: chest pain, palpitations, lightheadedness, syncope or orthopnea Resp: Reports: dyspnea, productive cough, wheezing and chest congestion; Denies: hemoptysis GI: Denies: abdominal pain, nausea or vomiting : Denies: flank pain, difficulty urinating, dysuria, urinary frequency or urinary urgency Musc: Denies: extremity pain Skin/Breast: Denies: rash or pruritus Neuro: Denies: dizziness Endo: Denies: polyuria or polydipsia PFS ED PFSH: Medical History Aortic regurgitation Benign prostatic hyperplasia CAD (coronary artery disease) Cervical disc disorder with myelopathy of mid-cervical region Chronic kidney disease, stage III (moderate) Claustrophobia COPD (chronic obstructive pulmonary disease) COPD (chronic obstructive pulmonary disease) Coronary artery calcification CVA (cerebral vascular accident) (~01/2021) clinical diagnosis with dysarthria and confusion, unremarkable work up but unable to perform MRI due to severe claustrophobia Degenerative joint disease of left shoulder Degenerative lumbar disc Depression hospitalization 04/2021 Diabetes mellitus Facet arthropathy, lumbar Frequent UTI Hepatitis C virus infection resolved after antiviral drug therapy some early cirrhosis, HCC ruled out History of DVT (deep vein thrombosis) (~12/2018) History of PFTs (~01/2021) moderate obstructive ventilatory defect, significant response to bronchodilators. Lung volumes suggestive of mild air trapping. Mild reduction in gas transfer. 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 Pets and animals: No Current gender identity: Male Physical Exam Const: GENERAL APPEARANCE: cooperative and comfortable OR IENTATION/CONSCIOUSNESS: Yes awake, Yes oriented to person, Yes oriented to place and Yes oriented to time HENMT: COMMON NORMALS: normocephalic, atraumatic and hearing grossly normal bilaterally HEAD & SCALP: normocephalic and atraumatic Neck/C-Spine: COMMON NORMALS: no JVD Resp: COMMON NORMALS: normal respiratory effort, No retractions and No use of accessory muscles AUSCULTATION: rhonchi and wheezes Cardio: COMMON NORMALS: no JVD, regular rate, regular rhythm and No murmurs present (Cardio) RATE: regular rate RHYTHM: regular rhythm GI: COMMON NORMALS: Soft to palpation and No hepatosplenomegaly present AUSCULTATION: Yes normoactive bowel sounds PALPATION: Yes Soft to palpation, No Tenderness to palpation present (GI), No Guarding due to palpation present (GI) and Yes No hepatosplenomegaly present Extremity: COMMON NORMALS: normal to inspection, capillary refill normal, no clubbing, cyanosis or edema, no calf tenderness and no pedal edema Neuro: SENSORIUM/ORIENTATION: Yes oriented to person, Yes oriented to place and Yes oriented to time Skin: COMMON NORMALS: no rashes or lesions noted GENERAL SKIN EXAM: no rashes or lesions noted Course Vital Signs: Vital signs: Vital Signs Temperature 97.2 F L 03/06/22 10:57 Pulse Rate 72 03/06/22 14:27 Respiratory Rate 18 03/06/22 14:21 Blood Pressure 126/92 03/06/22 13:18 Pulse Oximetry 95 03/06/22 14:21 MDM - SOB/Dyspnea Medical Decision Making Exacerbation COPDAlong with chronic kidney disease. He is feeling better after the nebulizers and the steroids are good discharge him home continue use albuterol regularly steroid taper follow-up with primary care doctor worsening or changes return. Medical Records I reviewed the patient's medical records. Lab Data I reviewed the patient's lab results. : 03/06/22 13:14 03/06/22 13:53 Labs/Radiology: Radiology Impressions Chest X-Ray 03/06/22 11:21 IMPRESSION: Unremarkable portable chest. Laboratory Results WBC 6.7 10^3/uL (4.0-10.0) 03/06/22 13:14 RBC 4.28 10^6/uL (4.1-5.3) 03/06/22 13:14 Hgb 12.6 g/dL (11.7-16.6) 03/06/22 13:14 Hct 43.1 % (42.0-52.0) 03/06/22 13:14 MCV 100.7 fl (80-94) H 03/06/22 13:14 MCH 29.4 pg (28.0-34.0) 03/06/22 13:14 MCHC 29.2 g/dL (30.0-36.0) L 03/06/22 13:14 RDW 15.2 % (12.1-15.1) H 03/06/22 13:14 Plt Count 108 10^3/cmm (130-400) L 03/06/22 13:14 MPV 11.1 fL (7.4-10.4) H 03/06/22 13:14 Neut % (Auto) 72.7 % 03/06/22 13:14 Lymph % (Auto) 18.5 % 03/06/22 13:14 [place] % (Auto) 5.2 % 03/06/22 13:14 Eos % (Auto) 2.8 % 03/06/22 13:14 Baso % (Auto) 0.4 % 03/06/22 13:14 Neut # (Auto) 4.86 10^3/uL (1.8-7.7) 03/06/22 13:14 Lymph # (Auto) 1.2 10^3/uL (0.8-4.8) 03/06/22 13:14 [place] # (Auto) 0.4 10^3/uL (0.2-0.9) 03/06/22 13:14 Eos # (Auto) 0.2 10^3/uL (0.0-0.8) 03/06/22 13:14 Baso # (Auto) 0.0 10^3/uL (0.0-0.1) 03/06/22 13:14 Nucleated RBC % (auto) 0 % 03/06/22 13:14 Nucleated RBCs # 0.0 /100WBC 03/06/22 13:14 Sodium 135 mmol/L (136-145) L 03/06/22 13:53 Potassium 4.6 mmol/L (3.5-5.1) 03/06/22 13:53 Chloride 99 mmol/L (98-107) 03/06/22 13:53 Carbon Dioxide 17 mmol/L (22-29) L 03/06/22 13:53 Anion Gap 23.6 (5-19) H 03/06/22 13:53 BUN 33 mg/dL (8-23) H 03/06/22 13:53 Creatinine 2.0 mg/dL (0.7-1.2) H 03/06/22 13:53 GFR Calculation 33.8 mL/min (90-130) L 03/06/22 13:53 Glucose 139 mg/dL (65-115) H 03/06/22 13:53 Calculated Osmolality 290 mOsm/kg (285-295) 03/06/22 13:53 Calcium 8.9 mg/dL (8.5-10.5) 03/06/22 13:53 Total Bilirubin 1.7 mg/dL (0.15-1.2) H 03/06/22 13:53 AST 31 U/L (0-40) 03/06/22 13:53 ALT 20 U/L (0-41) 03/06/22 13:53 Alkaline Phosphatase 42 IU/L (40-130) 03/06/22 13:53 Troponin T Baseline 28 ng/L (0-15) H 03/06/22 13:53 NT-Pro-B Natriuret Pep 2695 pg/mL (0-125) H 03/06/22 13:53 Total Protein 7.1 g/dL (6.6-8.7) 03/06/22 13:53 Albumin 4.1 g/dL (3.5-5.2) 03/06/22 13:53 Globulin 3.0 g/dL (1.3-4.6) 03/06/22 13:53 Discharge Plan Discharge Patient Disposition: Home Clinical Impression: Acute exacerbation of chronic obstructive airways disease Condition: Stable Prescriptions: New prednisone 20 mg tablet 20 mg PO TID Qty: 15 0RF Rx Instructions: 1 p.o. 3 times daily x3 days, 1 p.o. twice daily x2 days, 1 p.o. daily x2 days albuterol sulfate 90 mcg/actuation HFA aerosol inhaler 2 inh INHALATION Q4H PRN (Reason: shortness of breath or wheezing) Qty: 18 0RF No Action amlodipine 5 mg tablet 5 mg PO DAILY Qty: 90 3RF Stiolto Respimat 2.5-2.5 mcg/actuation mist 2 puff inhalation DAILY Qty: 4 3RF escitalopram oxalate 10 mg Tablet 5 mg PO DAILY Qty: 30 0RF atorvastatin 80 mg Tablet 80 mg PO QPM 0RF ferrous sulfate 325 mg (65 mg iron) Tablet 325 mg PO DAILY@1100 0RF cholecalciferol (vitamin D3) 2,000 unit Tablet 2,000 unit PO DAILY@1100 0RF losartan 100 mg tablet 50 mg PO DAILY@1100 0RF Hold Instructions: Resume on 03/06/22. pentoxifylline 400 mg tablet extended release 400 mg PO BID 0RF senna 8.6 mg Capsule 8.6 mg PO DAILY PRN (Reason: Constipation) 0RF levetiracetam [Keppra] 500 mg tablet 500 mg PO BID Qty: 60 0RF clopidogrel [Plavix] 75 mg Tablet 75 mg PO DAILY@1100 0RF albuterol sulfate 90 mcg/actuation Hfa Aerosol Inhaler 2 puff INHALATION Q4H PRN (Reason: Shortness Of Breath) 0RF insulin aspart U-100 [Novolog Flexpen U-100 Insulin] 100 unit/mL (3 mL) Insulin Pen 17 unit SUBCUT BEDTIME PRN (Reason: blood sugar) 0RF Lantus Solostar U-100 Insulin 100 unit/mL (3 mL) insulin pen 17 unit SUBCUT BEDTIME 0RF tamsulosin 0.4 mg capsule 0.4 mg PO BID@1100,2000 0RF fluticasone propionate 50 mcg/actuation [place],Suspension 2 spray INTRANASAL DAILY PRN (Reason: Allergy Symptoms) 0RF furosemide [Lasix] 20 mg tablet 20 mg PO QAM 0RF ipratropium-albuterol 0.5 mg-3 mg(2.5 mg base)/3 mL solution for nebulization 3 ml inhalation Q4H PRN (Reason: shortness of breath or wheezing) Qty: 180 0RF Rx Instructions: until breathing returns to target peak flow/parameters Eliquis 5 mg Tablet 5 mg PO BID@0900,2100 Qty: 180 0RF diltiazem HCl 360 mg capsule,extended release 24hr 360 mg PO DAILY Qty: 90 0RF omeprazole 40 mg Capsule,Delayed Release(Dr/Ec) 40 mg PO DAILY@11 0RF Multivitamin-Minerals Tablet 1 tab PO DAILY 0RF ipratropium-albuterol 20-100 mcg/actuation Mist 1 puff INHALATION QID PRN (Reason: breathing) 0RF Rx Instructions: space evenly during waking hours Pacerone 200 mg tablet See Rx Instructions .ROUTE .COMPLEX 0RF Rx Instructions: 200mg (1 tab) twice a day for 2 weeks, then 100mg (0.5 tab) twice a day Discharge Orders: Discharge ED (Routine); Ordered 03/06/22 Ordered By: Rich Jara Referrals: Fer Musa, DO [Primary Care Provider] - Discharge Diet: Usual diet Discharge Activity: Limit activity as instructed Activity Restrictions/Additional Instructions: Avoid strenuous activity follow-up with your primary care doctor within the next 3 to 4 days return if you have any further problems. Continue all other previously prescribed medications. Coding Level of Care Code ED Sql Database Programmer for Chg 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
[2022-03-06] MEDS: aspirin 81 mg Chew Tablet 324 MG PO (13:12)
[2022-03-06 13:18] VITALS: BP 126/92; PULSE 87; RESP 19; O2SAT 97
[2022-03-06 13:23] LABS: Basophils % 0.4 %; Eosinophils # 0.2 10^3/uL (0.0-0.8); Eosinophils % 2.8 %; Hematocrit 43.1 % (42.0-52.0); Hemoglobin 12.6 g/dL (11.7-16.6); Lymphocytes # 1.2 10^3/uL (0.8-4.8); Lymphocytes % 18.5 %; Mean Corpuscular HGB Conc 29.2 g/dL (30.0-36.0); Mean Corpuscular Hemoglobin 29.4 pg (28.0-34.0); Mean Corpuscular Volume 100.7 fl (80-94); Mean Platelet Volume 11.1 fL (7.4-10.4); Monocytes # 0.4 10^3/uL (0.2-0.9); Monocytes % 5.2 %; Neutrophils # 4.86 10^3/uL (1.8-7.7); Neutrophils % 72.7 %; Nucleated Red Blood Cells % 0 %; Platelet Count 108 10^3/cmm (130-400); Red Blood Count 4.28 10^6/uL (4.1-5.3); Red Cell Distribution Width 15.2 % (12.1-15.1); White Blood Count 6.7 10^3/uL (4.0-10.0)
[2022-03-06 14:21] VITALS: PULSE 93; RESP 18; O2SAT 95
[2022-03-06 14:21] LABS: Troponin(5th) Baseline 28 ng/L (0-15)
[2022-03-06] MEDS: ipratropium-albuterol 3 mL Neb INHALATION (14:21)
[2022-03-06 14:27] VITALS: PULSE 72
[2022-03-06] MEDS: dexamethasone 10 mg/mL INJ IVP (14:53)
[2022-03-06 14:56] LABS: Albumin Level 4.1 g/dL (3.5-5.2); Alkaline Phosphatase 42 IU/L (40-130); Blood Urea Nitrogen 33 mg/dL (8-23); Calcium 8.9 mg/dL (8.5-10.5); Carbon Dioxide 17 mmol/L (22-29); Chloride 99 mmol/L (98-107); Glomerular Filtration Rate 33.8 mL/min (90-130); Glucose 139 mg/dL (65-115); NT Pro B Type Natriuretic Pept 2695 pg/mL (0-125); Osmolality Calculated 290 mOsm/kg (285-295); Sodium 135 mmol/L (136-145); Total Bilirubin 1.7 mg/dL (0.15-1.2); Total Protein 7.1 g/dL (6.6-8.7)
[2022-03-06 14:57] LABS: Anion Gap 23.6 (5-19); Aspartate Amino Transferase 31 U/L (0-40); Potassium 4.6 mmol/L (3.5-5.1)
[2022-03-06 14:58] LABS: Alanine Aminotransferase 20 U/L (0-41)
== END 2022-03-06 15:51 | disposition home or self-care (01) ==
PROVIDERS: Emergency Provider Family Medicine; PCP Emergency Medicine Emergency Medical Services
DX: J44.1 Chronic obstructive pulmonary disease with (acute) exacerbation (principal); E11.22 Type 2 diabetes mellitus with diabetic chronic kidney disease; I12.9 Hypertensive chronic kidney disease with stage 1 through stage 4 chronic kidney disease, or unspecified chronic kidney disease; N18.30 Chronic kidney disease, stage 3 unspecified; Z87.891 Personal history of nicotine dependence; Z79.02 Long term (current) use of antithrombotics/antiplatelets; Z79.51 Long term (current) use of inhaled steroids; Z79.01 Long term (current) use of anticoagulants
CPT/HCPCS: 36415; 71045; 80053; 83880; 84484; 85025; 93005; 94640; 96374; 99284; J1100

== ENCOUNTER → 2022-03-13 10:58 | Outpatient (BNVA) | payer OTHER, SELFPAY | PROVIDERS: PCP Emergency Medicine Emergency Medical Services; Visit Provider Nurse Practitioner Family | DX: I48.91 Unspecified atrial fibrillation (principal); R04.2 Hemoptysis; J44.1 Chronic obstructive pulmonary disease with (acute) exacerbation; Z87.891 Personal history of nicotine dependence; Z79.01 Long term (current) use of anticoagulants; Z86.73 Personal history of transient ischemic attack (TIA), and cerebral infarction without residual deficits | CPT/HCPCS: 80048; 83880; 93005; 99214 ==

== ENCOUNTER 2022-03-14 12:15 | Outpatient (CLI) | payer OTHER, SELFPAY | END 2022-03-14 12:16 | disposition home or self-care (01) | LOC: LAB 12:20 | PROVIDERS: PCP Emergency Medicine Emergency Medical Services; Visit Provider Nurse Practitioner Family | DX: J44.1 Chronic obstructive pulmonary disease with (acute) exacerbation (principal); R04.2 Hemoptysis | CPT/HCPCS: 87070; 87077; 87186; 87205 ==

== ENCOUNTER 2022-03-14 13:52 | Inpatient (IN) | payer OTHER, MEDICARE, SELFPAY ==
[2022-03-14] VITALS (10 sets, daily range): BP systolic 100–133; BP diastolic 54–84; PULSE 86–114; RESP 16–32; TEMP 36.5–37.1; O2SAT 86–92; BMI 34.7; BMI 34.2
--- NOTE | 2022-03-14 13:58 | XRR_ITS ---
PROCEDURE INFORMATION: Exam: XR Chest Exam date and time: 03/14/2022 2:21 PM Age: 66 years old Clinical indication: Dyspnea TECHNIQUE: Imaging protocol: XR of the chest. Views: 1 view. COMPARISON: CR XR chest 1V portable [id number] 03/06/2022 11:37 AM FINDINGS: Lungs: No pulmonary vascular congestion, pulmonary edema or pneumonia. Pleural spaces: No pleural effusion or pneumothorax. Heart/Mediastinum: The cardiac silhouette is not enlarged. The mediastinal contours are normal. Bones/joints: Bilateral glenohumeral joint osteoarthritis, more severe on the left. Soft tissues: There are bilateral epicardial fat pads. XR/XR chest 1V portable [id number] IMPRESSION: No acute finding.
--- NOTE | 2022-03-14 13:58 | ECG_ITS ---
[facility] Test Date: 2022-03-14 Pat Name: Jeffrey Brown Department: Room: Gender: Male Butt Presser: : 1955 Requested By: Rich Gallagher Order Number: [id number] Janet MD: Eloy Otoole M.D. Measurements Intervals [place] Rate: 82 P: NE: QRS: 31 QRSD: 89 T: 74 QT: 354 QTc: 415 Interpretive Statements ATRIAL FIBRILLATION Compared to ECG 03/06/2022 13:24:23 No significant changes Electronically Signed On 03-14-2022 20:48:03 CDT by Eloy Otoole M.D. [email or web address] Inccleveland [facility] avon hospitalConnect [id number]
--- NOTE | 2022-03-14 14:08 | PC.NURSE ---
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
--- NOTE | 2022-03-14 14:26 | W.ED.SOB ---
HPI - SOB/Dyspnea General: Chief Complaint: Shortness of Breath/Dyspnea Stated Complaint: HYPOTENSION Time Seen by Provider: 03/14/22 13:54 Source: patient Mode of arrival: EMS Limitations: no limitations History of Present Illness: HPI Narrative: 66-year-old male presents emergency room complaining of increasing shortness of breath he is a known history of COPD uses 2 L/min he is noticing his get more more short of breath he started to have blood-tinged sputum with his productive cough. He denies any fever sweats or chills no chest pain. He is on Eliquis. He previously had been seen here treated for exacerbation COPD. He is convinced that his problem is propane gas exposure. MD elicited complaint: shortness of breath and cough Pertinent past history: COPD Onset (ago): day(s) Context: occurred during exertion Timing: constant Severity: moderate Exacerbating factors: exertion and coughing Relieving factors: oxygen and rest Known history of: COPD Associated symptoms: Reports chest congestion and cough; Deny abdominal pain, chest pain, diaphoresis, dizziness, extremity pain, fever(s), hemoptysis, lightheadedness, myalgias, nausea, orthopnea, palpitations, paresthesias, polydipsia, polyuria, rash, sense of impending doom, syncope or vomiting Treatment prior to arrival: oxygen Review of Systems Const: Denies: fever(s) or diaphoresis Card: Denies: chest pain, palpitations, lightheadedness, syncope or orthopnea Resp: Reports: chest congestion; Denies: hemoptysis GI: Denies: abdominal pain, nausea or vomiting Musc: Denies: extremity pain Neuro: Denies: dizziness Endo: Denies: polyuria or polydipsia PFS ED PFSH: Medical History Aortic regurgitation Benign prostatic hyperplasia CAD (coronary artery disease) Cervical disc disorder with myelopathy of mid-cervical region Chronic kidney disease, stage III (moderate) Claustrophobia COPD (chronic obstructive pulmonary disease) COPD (chronic obstructive pulmonary disease) Coronary artery calcification CVA (cerebral vascular accident) (~01/2021) clinical diagnosis with dysarthria and confusion, unremarkable work up but unable to perform MRI due to severe claustrophobia Degenerative joint disease of left shoulder Degenerative lumbar disc Depression hospitalization 04/2021 Diabetes mellitus Facet arthropathy, lumbar Frequent UTI Hepatitis C virus infection resolved after antiviral drug therapy some early cirrhosis, HCC ruled out History of DVT (deep vein thrombosis) (~12/2018) History of PFTs (~01/2021) moderate obstructive ventilatory defect, significant response to bronchodilators. Lung volumes suggestive of mild air trapping. Mild reduction in gas transfer. 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 Pets and animals: No Current gender identity: Male Physical Exam Const: COMMON NORMALS: no acute distress GENERAL APPEARANCE: cooperative and comfortable ORIENTATION/CONSCIOUSNESS: Yes awake, Yes oriented to person, Yes oriented to place and Yes oriented to time HENMT: COMMON NORMALS: normocephalic, atraumatic and hearing grossly normal bilaterally HEAD & SCALP: normocephalic and atraumatic Neck/C-Spine: COMMON NORMALS: no JVD Resp: AUSCULTATION: rhonchi and wheezes Cardio: COMMON NORMALS: no JVD, regular rate, regular rhythm and No murmurs present (Cardio) RATE: regular rate RHYTHM: regular rhythm GI: COMMON NORMALS: Soft to palpation and No hepatosplenomegaly present INSPECTION: Yes abdominal distension AUSCULTATION: Yes normoactive bowel sounds PALPATION: Yes Soft to palpation, No Tenderness to palpation present (GI), No Guarding due to palpation present (GI) and Yes No hepatosplenomegaly present Extremity: COMMON NORMALS: normal to inspection, capillary refill normal, no clubbing, cyanosis or edema, no calf tenderness and no pedal edema Neuro: SENSORIUM/ORIENTATION: Yes oriented to person, Yes oriented to place and Yes oriented to time Skin: COMMON NORMALS: no rashes or lesions noted GENERAL SKIN EXAM: no rashes or lesions noted Course Vital Signs: Vital signs: Vital Signs Temperature 98.7 F 03/14/22 13:55 Pulse Rate 94 03/14/22 17:23 Respiratory Rate 25 H 03/14/22 16:49 Blood Pressure 123/84 03/14/22 16:49 Pulse Oximetry 91 03/14/22 17:23 MDM - SOB/Dyspnea Medical Decision Making Acute exacerbation of COPD. Patient has desat into the mid to low 80s with minimal exertion on the normal 2 L. At rest he maintains a relatively decent level 90s O2 sat. Working to go ahead and admit him started on Levaquin and steroids and nebulizers discussed Dr. Zhang for the hospitalist service orders are written. Patient reported blood-streaked sputum culture was done. Medical Records I reviewed the patient's medical records. Lab Data I reviewed the patient's lab results. : 03/14/22 13:40 03/14/22 13:40 Labs/Radiology: Radiology Impressions Chest X-Ray 03/14/22 13:58 IMPRESSION: No acute finding. Laboratory Results WBC 15.8 10^3/uL (4.0-10.0) H 03/14/22 13:40 RBC 4.30 10^6/uL (4.1-5.3) 03/14/22 13:40 Hgb 12.6 g/dL (11.7-16.6) 03/14/22 13:40 Hct 40.9 % (42.0-52.0) L 03/14/22 13:40 MCV 95.1 fl (80-94) H 03/14/22 13:40 MCH 29.3 pg (28.0-34.0) 03/14/22 13:40 MCHC 30.8 g/dL (30.0-36.0) 03/14/22 13:40 RDW 15.7 % (12.1-15.1) H 03/14/22 13:40 Plt Count 110 10^3/cmm (130-400) L 03/14/22 13:40 MPV 10.2 fL (7.4-10.4) 03/14/22 13:40 Neut % (Auto) 74.5 % 03/14/22 13:40 Lymph % (Auto) 16.7 % 03/14/22 13:40 [place] % (Auto) 6.5 % 03/14/22 13:40 Eos % (Auto) 1.4 % 03/14/22 13:40 Baso % (Auto) 0.1 % 03/14/22 13:40 Neut # (Auto) 11.76 10^3/uL (1.8-7.7) H 03/14/22 13:40 Lymph # (Auto) 2.6 10^3/uL (0.8-4.8) 03/14/22 13:40 [place] # (Auto) 1.0 10^3/uL (0.2-0.9) H 03/14/22 13:40 Eos # (Auto) 0.2 10^3/uL (0.0-0.8) 03/14/22 13:40 Baso # (Auto) 0.0 10^3/uL (0.0-0.1) 03/14/22 13:40 Nucleated RBC % (auto) 0.1 % 03/14/22 13:40 Nucleated RBCs # 0.0 /100WBC 03/14/22 13:40 Sodium 135 mmol/L (136-145) L 03/14/22 13:40 Potassium 4.2 mmol/L (3.5-5.1) 03/14/22 13:40 Chloride 96 mmol/L (98-107) L 03/14/22 13:40 Carbon Dioxide 22 mmol/L (22-29) 03/14/22 13:40 Anion Gap 21.2 (5-19) H 03/14/22 13:40 BUN 61 mg/dL (8-23) H 03/14/22 13:40 Creatinine 2.6 mg/dL (0.7-1.2) H 03/14/22 13:40 GFR Calculation 25.0 mL/min (90-130) L 03/14/22 13:40 Glucose 137 mg/dL (65-115) H 03/14/22 13:40 Calculated Osmolality 299 mOsm/kg (285-295) H 03/14/22 13:40 Calcium 9.0 mg/dL (8.5-10.5) 03/14/22 13:40 Total Bilirubin 0.9 mg/dL (0.15-1.2) 03/14/22 13:40 AST 15 U/L (0-40) 03/14/22 13:40 ALT 42 U/L (0-41) H 03/14/22 13:40 Alkaline Phosphatase 36 IU/L (40-130) L 03/14/22 13:40 Troponin T Baseline 53 ng/L (0-15) H 03/14/22 13:40 Troponin T 120 Minute 54.93 ng/L (0-15) H 03/14/22 15:35 Delta Troponin T 1.93 ABS# (0-10) 03/14/22 15:35 Total Protein 6.9 g/dL (6.6-8.7) 03/14/22 13:40 Albumin 4.1 g/dL (3.5-5.2) 03/14/22 13:40 Globulin 2.8 g/dL (1.3-4.6) 03/14/22 13:40 Discharge Plan Discharge Condition: Stable Prescriptions: No Action amlodipine 5 mg tablet 5 mg PO DAILY Qty: 90 3RF Stiolto Respimat 2.5-2.5 mcg/actuation mist 2 puff inhalation DAILY Qty: 4 3RF metoprolol tartrate 25 mg tablet 12.5 mg PO BID Qty: 60 3RF escitalopram oxalate 10 mg Tablet 5 mg PO DAILY Qty: 30 0RF atorvastatin 80 mg Tablet 80 mg PO QPM 0RF ferrous sulfate 325 mg (65 mg iron) Tablet 325 mg PO DAILY@1100 0RF cholecalciferol (vitamin D3) 2,000 unit Tablet 2,000 unit PO DAILY@1100 0RF losartan 100 mg tablet 50 mg PO DAILY@1100 0RF Hold Instructions: Resume on 03/06/22. pentoxifylline 400 mg tablet extended release 400 mg PO BID 0RF senna 8.6 mg Capsule 8.6 mg PO DAILY PRN (Reason: Constipation) 0RF levetiracetam [Keppra] 500 mg tablet 500 mg PO BID Qty: 60 0RF clopidogrel [Plavix] 75 mg Tablet 75 mg PO DAILY@1100 0RF albuterol sulfate 90 mcg/actuation Hfa Aerosol Inhaler 2 puff INHALATION Q4H PRN (Reason: Shortness Of Breath) 0RF insulin aspart U-100 [Novolog Flexpen U-100 Insulin] 100 unit/mL (3 mL) Insulin Pen 17 unit SUBCUT BEDTIME PRN (Reason: blood sugar) 0RF Lantus Solostar U-100 Insulin 100 unit/mL (3 mL) insulin pen 17 unit SUBCUT BEDTIME 0RF tamsulosin 0.4 mg capsule 0.4 mg PO BID@1100,2000 0RF fluticasone propionate 50 mcg/actuation [place],Suspension 2 spray INTRANASAL DAILY PRN (Reason: Allergy Symptoms) 0RF furosemide [Lasix] 20 mg tablet 20 mg PO QAM 0RF Eliquis 5 mg Tablet 5 mg PO BID@0900,2100 Qty: 180 0RF diltiazem HCl 360 mg capsule,extended release 24hr 360 mg PO DAILY Qty: 90 0RF omeprazole 40 mg Capsule,Delayed Release(Dr/Ec) 40 mg PO DAILY@11 0RF Multivitamin-Minerals Tablet 1 tab PO DAILY 0RF ipratropium-albuterol 20-100 mcg/actuation Mist 1 puff INHALATION QID PRN (Reason: breathing) 0RF Rx Instructions: space evenly during waking hours amiodarone [Pacerone] 200 mg tablet See Rx Instructions .ROUTE .COMPLEX 0RF Rx Instructions: 200mg (1 tab) twice a day for 2 weeks, then 100mg (0.5 tab) twice a day Referrals: Fer Musa DO [Primary Care Provider] - Coding Level of Care Code ED Digital Marketing Assistant for [place] Bartholomew
[2022-03-14 14:29] LABS: Basophils % 0.1 %; Eosinophils # 0.2 10^3/uL (0.0-0.8); Eosinophils % 1.4 %; Hematocrit 40.9 % (42.0-52.0); Hemoglobin 12.6 g/dL (11.7-16.6); Lymphocytes # 2.6 10^3/uL (0.8-4.8); Lymphocytes % 16.7 %; Mean Corpuscular HGB Conc 30.8 g/dL (30.0-36.0); Mean Corpuscular Hemoglobin 29.3 pg (28.0-34.0); Mean Corpuscular Volume 95.1 fl (80-94); Mean Platelet Volume 10.2 fL (7.4-10.4); Monocytes % 6.5 %; Neutrophils # 11.76 10^3/uL (1.8-7.7); Neutrophils % 74.5 %; Nucleated Red Blood Cells % 0.1 %; Platelet Count 110 10^3/cmm (130-400); Red Cell Distribution Width 15.7 % (12.1-15.1); White Blood Count 15.8 10^3/uL (4.0-10.0)
[2022-03-14 14:54] LABS: Alanine Aminotransferase 42 U/L (0-41); Albumin Level 4.1 g/dL (3.5-5.2); Alkaline Phosphatase 36 IU/L (40-130); Anion Gap 21.2 (5-19); Aspartate Amino Transferase 15 U/L (0-40); Blood Urea Nitrogen 61 mg/dL (8-23); Carbon Dioxide 22 mmol/L (22-29); Chloride 96 mmol/L (98-107); Globulin 2.8 g/dL (1.3-4.6); Glucose 137 mg/dL (65-115); Osmolality Calculated 299 mOsm/kg (285-295); Potassium 4.2 mmol/L (3.5-5.1); Sodium 135 mmol/L (136-145); Total Bilirubin 0.9 mg/dL (0.15-1.2); Total Protein 6.9 g/dL (6.6-8.7)
[2022-03-14 15:27] LABS: Troponin(5th) Baseline 53 ng/L (0-15)
[2022-03-14] MEDS: sodium chloride 0.9% 500 ML 999 ML IV (15:53)
[2022-03-14 16:28] LABS: Troponin 5 2HR 54.93 ng/L (0-15)
[2022-03-14 16:37] LABS: Troponin 5 2HR Delta 1.93 ABS# (0-10)
[2022-03-14] MEDS: levofloxacin-dextrose 5 % 750 MG/150 ML PREMIX 100 MG IV (17:16)
[2022-03-14] MEDS: ipratropium-albuterol 3 mL Neb INHALATION (17:20)
--- NOTE | 2022-03-14 18:29 | CTR_ITS ---
PROCEDURE INFORMATION: Exam: CT Chest Without Contrast; Diagnostic Exam date and time: 03/15/2022 12:56 AM Age: 66 years old Clinical indication: Abnormal findings; Abnormal radiologic exam of lung or chest; Prior surgery; Surgery date: 6+ months; Surgery type: Stents; Additional info: Copd/pna TECHNIQUE: Imaging protocol: Diagnostic computed tomography of the chest without contrast. Radiation optimization: All CT scans at this facility use at least one of these dose optimization techniques: automated exposure control; mA and/or kV adjustment per patient size (includes targeted exams where dose is matched to clinical indication); or iterative reconstruction. COMPARISON: CR XR chest 1V portable [id number] 03/14/2022 2:21 PM RADIATION DOSE METRICS: Total DLP (mGy-cm): 1002.56 FINDINGS: Lungs: Mild upper lung zone emphysema. Mild interstitial pulmonary edema. Mild patchy left lower lobe airspace disease. Minimal lingular, right middle lobe and right basilar atelectasis or scarring. Pleural spaces: Minimal posterior pleural effusions. Heart: Heart size is mildly enlarged. Coronary artery calcifications. Lymph nodes: Mild mediastinal and hilar lymphadenopathy. Vasculature: Mildly ectatic, tortuous and calcified thoracic aorta. Bones/joints: Mild thoracic kyphoscoliosis, spondylosis and degenerative bony changes. Soft tissues: No significant soft tissue abnormalities. CT/CT chest [facility] [id number] IMPRESSION: 1. Mild cardiomegaly, interstitial pulmonary edema and minimal posterior pleural effusions. 2. Mild patchy left lower lobe pneumonia. 3. Mild upper lung zone emphysema. 4. Mild mediastinal and hilar lymphadenopathy.
--- NOTE | 2022-03-14 18:36 | PM.HP ---
Providers/Chief Complaint Admitting Physician: Sujit Zhang MD Primary Care Provider: Fer Musa DO Chief Complaint: HYPOTENSION History of Present Illness Jeffrey Brown is a 66 year old male with past medical history of aortic regurgitation, CAD, CKD stage III, COPD, CVA, type 2 diabetes mellitus, COPD, hypertension, mitral regurgitation, afib on eliquis came to the ER today via EMS. After the patient has been having difficulty in breathing which has been going on for last 6 months getting worse for last 1 week along with possibility of occasional episodes of hemoptysis for last 1 week. Denies any chest pain, dizziness, headache, hematemesis or melena. He states he thinks today he took an extra tablet of metoprolol after which he noticed some bradycardia at home with episodes of dizziness so he called his primary care's office hence was sent to the ER. Blood work in the ER showed a white count of 15.8, hemoglobin of 12.6, platelet count of 110, sodium of 135, chloride of 96, creatinine of 2.6 with a BUN of 61, blood sugar of 137, AST/ALT of 42/26, baseline troponin of 53 with a delta of 2 in 2 hours, UA negative for nitrite or leuk Review of Systems General: Reports: 10 or more systems reviewed and unremarkable except in HPI and below Const: Denies: fever(s), chills, body aches, change in appetite, change in weight, malaise, night sweats, diaphoresis, change in sleep pattern, daytime sleepiness or snoring Eyes: Denies: change in vision, blurry vision, photophobia, eye discomfort or eye discharge ENMT: Denies: throat pain, enlarged tonsils, hoarseness, mouth pain, oral sores, dry mouth, tinnitus, nasal congestion or post nasal drip Card: Denies: chest pain, palpitations, irregular heart rhythm, edema, swelling of feet/ankles, lightheadedness, syncope, pre-syncope, dyspnea on exertion, orthopnea, leg pain with exertion or acrocyanosis Resp: Denies: dyspnea, productive cough, non-productive cough, wheezing, stridor, pain on inspiration, change in phlegm color, hemoptysis or chest congestion GI: Denies: abdominal pain, nausea, vomiting, hematemesis, coffee ground emesis, dysphagia, heartburn, diarrhea, constipation, bloating, GI cramping, change in bowel habits, pain on defecation, hematochezia or melena : Denies: flank pain, difficulty urinating, dysuria, urinary frequency, urinary urgency, urinary hesitancy, urinary dribbling, difficulty starting urination, change in urine stream, nocturia or hematuria Musc: Denies: neck pain, back pain, extremity pain, joint pain, joint swelling, joint redness, joint stiffness or limited range of motion Neuro: Denies: headache(s), numbness in extremities, weakness in extremities, sensory changes, lack of coordination, difficulty walking, frequent falls, dizziness, vertigo, confusion, Slurred speech present, difficulty communicating thoughts or seizure-like activity Psych: Denies: anxiety, depression, mood swings, panic attacks, hopelessness or irritability Endo: Denies: polyuria, polydipsia, tired all the time, cold intolerance, excessive sweating, flushing or heat intolerance Jesús/Lymph: Denies: easy bruising or easy bleeding All/Imm: Denies: tongue swelling, facial swelling or acute wheezing Medications/Allergies Home Medications Medication Instructions Recorded Confirmed Last Taken Type atorvastatin 80 mg tablet 80 mg PO QPM 12/28/19 03/14/22 03/13/22 History cholecalciferol (vitamin D3) 50 2,000 unit PO DAILY@109912/28/19 03/14/22 03/14/22 History mcg (2,000 unit) tablet ferrous sulfate 325 mg (65 mg 325 mg PO DAILY@109912/28/19 03/14/22 03/14/22 History iron) tablet sennosides 8.6 mg capsule (senna) 8.6 mg PO DAILY PRN 12/30/19 03/14/22 01/23/22 History levetiracetam 500 mg tablet 500 mg PO BID #60 tab 01/03/20 03/14/22 03/14/22 Rx (Keppra) losartan 100 mg tablet 50 mg PO DAILY@1100 03/17/20 03/14/22 03/14/22 History pentoxifylline 400 mg 400 mg PO BID 03/17/20 03/14/22 03/14/22 History tablet,extended release tiotropium 2.5 mcg-olodaterol 2.5 2 puff INHALATION DAILY #4 g 11/25/20 03/14/22 03/14/22 Rx mcg/actuation mist for inhalation (Stiolto Respimat) albuterol sulfate 90 mcg/actuation 2 puff INHALATION Q4H PRN 01/31/21 03/14/22 01/23/22 History aerosol inhaler clopidogrel 75 mg tablet (Plavix) 75 mg PO DAILY@1100 01/31/21 03/14/22 03/14/22 History insulin aspart U-100 100 unit/mL 17 unit SUBCUT BEDTIME PRN 01/31/21 03/14/22 03/14/22 History (3 mL) subcutaneous pen (Novolog Flexpen U-100 Insulin aspart) fluticasone propionate 50 2 spray INTRANASAL DAILY PRN 03/23/21 03/14/22 03/23/21 History mcg/actuation nasal spray,suspension tamsulosin 0.4 mg capsule 0.4 mg PO BID@1100,2000 03/23/21 03/14/22 03/14/22 History escitalopram oxalate 10 mg tablet 5 mg PO DAILY #30 tab 04/18/21 03/14/22 03/14/22 Rx amlodipine 5 mg tablet 5 mg PO DAILY #90 tab 12/12/21 03/14/22 03/14/22 Rx insulin glargine 100 unit/mL (3 17 unit SUBCUT BEDTIME 12/12/21 03/14/22 03/13/22 History mL) subcutaneous pen (Lantus Solostar U-100 Insulin) furosemide 20 mg tablet (Lasix) 20 mg PO QAM 01/19/22 03/14/22 03/14/22 History apixaban 5 mg tablet (Eliquis) 5 mg PO BID@0900,2100 #180 tab 02/20/22 03/14/22 03/14/22 Rx diltiazem HCl 360 mg 360 mg PO DAILY #90 cap 02/20/22 03/14/22 03/14/22 Rx capsule,extended release 24 hr amiodarone 200 mg tablet (Pacerone) See Rx Instructions .ROUTE .COMPLEX 03/06/22 03/14/22 03/14/22 History ipratropium 20 mcg-albuterol 100 1 puff INHALATION QID PRN 03/06/22 03/14/22 03/14/22 History mcg/actuation mist for inhalation multivitamin with iron-mineral 1 tab PO DAILY 03/06/22 03/14/22 03/14/22 History omeprazole 40 mg capsule,delayed 40 mg PO DAILY@11 03/06/22 03/14/22 03/14/22 History release metoprolol tartrate 25 mg tablet 12.5 mg PO BID #60 tab 03/13/22 03/14/22 03/14/22 Rx Allergies Allergy/AdvReac Type Severity Reaction Status Date / Time No Known Allergies Allergy Verified 03/14/22 14:04 PFSH Acute PFSH: Medical History (Updated 03/14/22 @ 21:44 by Sujit Zhang MD) Aortic regurgitation Benign prostatic hyperplasia CAD (coronary artery disease) Cervical disc disorder with myelopathy of mid-cervical region Chronic kidney disease, stage III (moderate) Claustrophobia Congestive heart failure with preserved left ventricular function, NYHA class 1 COPD (chronic obstructive pulmonary disease) moderate obstructive ventilatory defect, significant response to bronchodilators. Lung volumes suggestive of mild air trapping. Mild reduction in gas transfer. Coronary artery calcification CVA (cerebral vascular accident) (~01/2021) clinical diagnosis with dysarthria and confusion, unremarkable work up but unable to perform MRI due to severe claustrophobia Degenerative joint disease of left shoulder Degenerative lumbar disc Depression hospitalization 04/2021 Diabetes mellitus Facet arthropathy, lumbar Frequent UTI Hepatitis C virus infection resolved after antiviral drug therapy some early cirrhosis, HCC ruled out History of DVT (deep vein thrombosis) (~12/2018) HTN (hypertension), benign Hypertension Lumbar disc disease with radiculopathy Lumbar stenosis with neurogenic claudication Mitral regurgitation Myoclonus dystonia New onset atrial fibrillation Obesity (BMI 30.0-34.9) Peripheral vascular disease Recurrent cystitis Thrombocytopenia 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 Pets and animals: No Current gender identity: Male Vitals/I&O/Wt Last Vital Signs Temp 98.7 F 03/14/22 13:55 Pulse 93 03/14/22 18:05 Resp 25 H 03/14/22 18:05 BP 105/74 03/14/22 18:05 Pulse Ox 90 03/14/22 18:05 03/14/22 03/14/22 03/14/22 06:59 14:59 22:59 Intake Total 500 / 500 Balance 500 / 500 Weight last 48 hrs Weight 112.945 kg Physical Exam Narrative: General: No acute distress, AO x3 HEENT: PERRLA, pupils bilaterally equal and reactive Chest: Normal vesicular breath sounds, no added sounds, equal good air entry bilaterally CVS: S1-S2 regular, no murmurs, no tachycardia, no gallops, no rubs Abdomen: Soft, nontender, no organomegaly, bowel sounds present Neuro: No focal deficits, no facial deformity, AO x3, power 5/5 in all limbs Data : 03/15/22 05:30 03/15/22 05:30 A&P Assessment and plan (1) Dyspnea: Status: Acute (2) COPD (chronic obstructive pulmonary disease): Status: Acute (3) Congestive heart failure with preserved left ventricular function, NYHA class 1: Status: Acute (4) New onset atrial fibrillation: Status: Acute (5) Diabetes mellitus: Status: Acute Qualifiers: Chronic kidney disease stage: stage 3 (moderate) Chronic kidney disease stage 3 subtype: stage 3b (GFR 30-44) Diabetes mellitus complication detail: with chronic kidney disease Diabetes mellitus complication status: with kidney complications Diabetes mellitus moth exterminator insulin use: with alf use Diabetes mellitus type: type 2 Qualified Code(s): E11.21 - Type 2 diabetes mellitus with diabetic nephropathy; N18.32 - Chronic kidney disease, stage 3b; Z79.4 - terminal makeup operator (current) use of insulin (6) Hemoptysis: Status: Acute Plan Shortness of breath most likely 2/2 COPD exacerberation along with CHF. PNA less likely. Consolidation not seen on CxR. Does have leukocystosis. Check procal, Urine legionella, bacterial antigen, sputum Cx, flu swab, COVID 19 PCR. For now treat with antibiotics for community-acquired pneumonia with oral Levaquin 500 mg every 48 hours as per creatinine clearance and culture sensitivities from sputum culture on previous admission for stenotrophomonas. Check Dimer. If elevated will check CTA otherwise CT Chest. For COPD exacerberation: Duoneb Q6h, Budesonide BID Solumedrol 40 mg IV Q8h. Will taper as per clinical picture. For CHF: Echo done earlier this month showed EF 55-60%, no RWMA Lasix 40 mg IV QD Fluid restriction 1500 cc/day. Strict I/O. Daily weight. Bradycardia: Reported by patient. As per patient took extra lopressor. HR stable for now. Telemetry. For now c/w home meds. Afib: Rate controlled. For now c/w home dose of cardizem and lopressor. C/w home dose of eliquis. Hemoptysis: Hb stable. No active signs. Could be 2/2 CHF. For now will monitor. If have repeat or documented event will get CTA. Will avoid CTA for now given CKD. Cepachol PRN. CKD: Creat at baseline. BMP daily. C/w other chronic meds. FC Eliquis will suffice for DVT PPx. Protnix for PUD PPX. Attestations Medical Necessity Statement*: Admission for 2 MN for SOB and hypoxia most likely secondary to COPD exacerbation congestive heart failure while pneumonia is ruled out Time Spent in Patient Care: Greater than 35 minutes Coding Level of Care Code Acute Medical Coding Instructor for [facility] Diagnoses Dyspnea R06.00 COPD (chronic obstructive pulmonary disease) J44.9 New onset atrial fibrillation I48.91 Congestive heart failure with preserved left ventricular function, NYHA class 1 I50.30 Diabetes mellitus E11.21; N18.32; Z79.4 Chronic kidney disease stage: stage 3 (moderate) Chronic kidney disease stage 3 subtype: stage 3b (GFR 30-44) Diabetes mellitus complication detail: with chronic kidney disease Diabetes mellitus complication status: with kidney complications Diabetes mellitus alf insulin use: with moth exterminator use Diabetes mellitus type: type 2 Hemoptysis R04.2
[2022-03-14 18:59] LABS: Glucose Urine UA Norm (Normal); Protein Urine Trace (Negative); Urine Appearance Hazy (CLEAR); Urine Color Yellow (Yellow); pH Urine 5 (5-7)
[2022-03-14 19:00] LABS: Add Urine Culture? Yes; Add Urine Microscopic? YES; Bacteria Urine 3+ /hpf; Bilirubin Urine 1+ (Negative); Blood Urine Neg (Negative); Ketones Urine 1+ (Negative); Leukocyte Esterase Urine 1+ (Negative); Nitrate Urine Negative (Negative); RBC Urine RARE /hpf (0-2); Squamous Epithelial Cell Urine 0-4 /hpf (0-5); Urobilinogen Urine 1 mg/dL (Negative); WBC Urine 25-40 /hpf (0-5)
[2022-03-14 19:02] LABS: D Dimer 0.41 ug/mIFEU (0-0.59)
[2022-03-14 19:03] LABS: ABG PCO2 30.5 mmHg (35-45); ABG PH Result 7.43 (7.35-7.45); Alveolar-Arterial Oxygen Gradi 7.9 mmHg (5-10); Arterial Blood Gas Hematocrit 37.4 % (42-52); Blood Gas Allen Test Pos; Blood Gas Sample Site Radial, left; Blood Gas Sample Type Arterial; Carboxyhemoglobin 1.3 %THgb (0.4-20.1); HCO3 ABG 20.4 mmol/L (22-26); HGB O2 Sat 83.6 % (95-100); Ionized Calcium Level - ABG 1.1 mmol/L (1.1-1.4); Methemoglobin 0.5 % (0.4-1.5); Oxygen Saturation ABG 85.2; PO2 ABG 50.4 mmHg (80.0-100.0); Potassium Level - ABG 4.5 mmol/L (3.5-5.0); Total Hemoglobin 12.2 g/dL (14-18)
--- NOTE | 2022-03-14 19:09 | PC.NURSE ---
i reported low o2 to nurse
[2022-03-14 19:49] LABS: Procalcitonin 0.09 ng/mL (0-0.5)
--- NOTE | 2022-03-14 19:58 | ECG_ITS ---
[facility] Test Date: 2022-03-14 Pat Name: Jeffrey Brown Department: Room: 270 Gender: Male Scale Expert: : 1955 Requested By: Rich Gallagher Order Number: [id number] Janet MD: Eloy Otoole M.D. Measurements Intervals Angela Rate: 97 P: MO: QRS: -6 QRSD: 108 T: 65 QT: 342 QTc: 435 Interpretive Statements ATRIAL FIBRILLATION POSSIBLE ANTERIOR MYOCARDIAL INFARCTION , OF INDETERMINATE AGE [30 ms Q WAVE IN V3/V4, OR R < 0.2 mV IN V4] INFERIOR MYOCARDIAL INFARCTION , OF INDETERMINATE AGE [40+ ms Q WAVE AND/OR ST/T ABNORMALITY IN II/aVF] Compared to ECG 03/14/2022 14:15:12 Myocardial infarct finding now present Electronically Signed On 03-14-2022 22:33:22 CDT by Eloy Otoole M.D. [id number]
[2022-03-14 20:00] LABS: Iron 99 ug/dL (59-158)
[2022-03-14 20:29] LABS: Add Urine Microscopic? NO; Charge for UA Resulting for Rev
[2022-03-14 20:42] LABS: Percent Saturation 29.2 % (20-50); Total Iron Binding Capacity 338 mcg/dl; Unsaturated Iron Binding 239 ug/dL (112-347)
[2022-03-14 20:53] LABS: Protein Urine Trace (Negative); Urine Appearance Clear (CLEAR); Urine Color Yellow (Yellow); pH Urine 5 (5-7)
[2022-03-14 20:54] LABS: Bilirubin Urine Neg (Negative); Blood Urine Neg (Negative); Glucose Urine UA Norm (Normal); Ketones Urine Negative (Negative); Leukocyte Esterase Urine Negative (Negative); Nitrate Urine Negative (Negative); Urobilinogen Urine Norm (Negative)
[2022-03-14 21:08] LABS: Glucose Point of Care 388 mg/dL (70-110)
[2022-03-14] MEDS: FUROsemide 10 mg/mL SDV 4mL 40 MG IVP (21:09)
[2022-03-14] MEDS: amiodarone 200 mg Tablet PO (21:10)
[2022-03-14] MEDS: apixaban 5 mg Tablet PO (21:10)
[2022-03-14] MEDS: tamsulosin 0.4 mg Capsule PO (21:10)
[2022-03-14 21:19] LABS: Influenza A by IFA Negative (Negative)
[2022-03-14 21:20] LABS: Influenza B by IFA Negative (Negative)
[2022-03-14 21:23] LABS: Potassium, Radom Urine 49 mmol/L; Urine Random Chloride 15 mmol/L; Urine Random Sodium 29 mmol/L
[2022-03-14] MEDS: insulin lispro 100 unit/1 mL SUBCUT (21:54)
[2022-03-14] MEDS: insulin glargine 100 units/1 mL 17 UNIT SUBCUT (21:54)
[2022-03-14 23:52] LABS: Adenovirus Not Detected (NOT DETECT); Chlamydia Pneumoniae Not Detected (NOT DETECT); Coronavirus 229E,HKU1,NL63,OC4 Not Detected (NOT DETECT); Human Metapneumovirus Not Detected (NOT DETECT); Human Rhinovirus/Enterovirus Not Detected (NOT DETECT); Influenza A Not Detected (NOT DETECT); Influenza A H1 Not Detected (NOT DETECT); Influenza A H1-2009 Not Detected (NOT DETECT); Influenza A H3 Not Detected (NOT DETECT); Influenza B Not Detected (NOT DETECT); Mycoplasma Pneumoniae Not Detected (NOT DETECT); Parainfluenza Virus Type 1 Not Detected (NOT DETECT); Parainfluenza Virus Type 2 Not Detected (NOT DETECT); Parainfluenza Virus Type 3 Not Detected (NOT DETECT); Parainfluenza Virus Type 4 Not Detected (NOT DETECT); Respiratory Syncytial Virus A Not Detected (NOT DETECT); Respiratory Syncytial Virus B Not Detected (NOT DETECT); SARS-COV-2 Not Detected (NOT DETECT)
[2022-03-15] VITALS (9 sets, daily range): BP systolic 73–112; BP diastolic 52–72; PULSE 56–106; RESP 14–18; TEMP 36.4–36.8; O2SAT 92–99
[2022-03-15 05:48] LABS: Basophils % 0.1 %; Hematocrit 39.2 % (42.0-52.0); Lymphocytes # 0.6 10^3/uL (0.8-4.8); Mean Corpuscular HGB Conc 30.6 g/dL (30.0-36.0); Mean Corpuscular Hemoglobin 28.8 pg (28.0-34.0); Mean Corpuscular Volume 94.2 fl (80-94); Mean Platelet Volume 10.4 fL (7.4-10.4); Monocytes # 0.1 10^3/uL (0.2-0.9); Neutrophils # 8.07 10^3/uL (1.8-7.7); Neutrophils % 90.4 %; Nucleated Red Blood Cells % 0.2 %; Platelet Count 89 10^3/cmm (130-400); Red Blood Count 4.16 10^6/uL (4.1-5.3); Red Cell Distribution Width 15.6 % (12.1-15.1); White Blood Count 8.9 10^3/uL (4.0-10.0)
[2022-03-15 06:00] LABS: Alanine Aminotransferase 38 U/L (0-41); Albumin Level 4.1 g/dL (3.5-5.2); Alkaline Phosphatase 37 IU/L (40-130); Aspartate Amino Transferase 12 U/L (0-40); Blood Urea Nitrogen 68 mg/dL (8-23); Calcium 8.9 mg/dL (8.5-10.5); Carbon Dioxide 17 mmol/L (22-29); Chloride 97 mmol/L (98-107); Chol HDL Ratio 3.76 mg/dL (1.0-5.00); Cholesterol 158 mg/dL (0-200); Globulin 2.4 g/dL (1.3-4.6); Glucose 264 mg/dL (65-115); HDL Cholesterol 42 mg/dL (60-100); LDL Cholesterol Calculated 87 mg/dL (50-129); Magnesium 2.4 mg/dL (1.7-2.3); Osmolality Calculated 301 mOsm/kg (285-295); Phosphorus 4.9 mg/dL (2.5-4.5); Sodium 131 mmol/L (136-145); Total Bilirubin 1.2 mg/dL (0.15-1.2); Total Protein 6.5 g/dL (6.6-8.7); Triglycerides 143 mg/dL (0-150); VLDL Cholestrol Calculation 29 mg/dL (0-30)
[2022-03-15 06:07] LABS: Procalcitonin 0.08 ng/mL (0-0.5)
[2022-03-15 06:26] LABS: Estmated Average Glucose 160; Hemoglobin A1C 7.2 % (4.0-6.0)
[2022-03-15 06:35] LABS: Glucose Point of Care 301 mg/dL (70-110)
[2022-03-15] MEDS: amiodarone 200 mg Tablet PO ×2 (08:54→22:16)
[2022-03-15] MEDS: azithromycin 250 mg Tablet 500 MG PO (08:54)
[2022-03-15] MEDS: escitalopram 10 mg Tablet 5 MG PO (08:55)
[2022-03-15] MEDS: dilTIAZem ER (24HR) 180 mg Capsule 360 MG PO (08:57)
[2022-03-15] MEDS: apixaban 5 mg Tablet PO ×2 (08:57→22:16)
[2022-03-15] MEDS: levETIRAcetam 500 mg Tablet PO ×2 (08:58→18:17)
[2022-03-15] MEDS: metoprolol tartrate 25 mg Tablet 12.5 MG PO (08:58)
[2022-03-15] MEDS: insulin lispro 100 unit/1 mL SUBCUT ×4 (09:00→22:17)
[2022-03-15] MEDS: budesonide 0.5 mg/2 mL Neb INHALATION ×2 (10:32→21:03)
--- NOTE | 2022-03-15 11:17 | PM.PN ---
Subjective Subjective: No acute vents overnight. Patient states he is feeling little better today. Denies any nausea, vomiting, headache. On examination laying comfortably in bed on room air. Still coughing. Bringing up blood-streaked phlegm. Denies any chest pain. Vitals/I&O/Wt Last Vital Signs Temp 98.2 F 03/15/22 08:00 Pulse 93 03/15/22 10:36 Resp 18 03/15/22 10:32 BP 112/72 03/15/22 08:00 Pulse Ox 97 03/15/22 10:32 03/14/22 03/15/22 03/15/22 22:59 06:59 14:59 Intake Total 650 / 650 292 / 942 260 / 260 Output Total 300 / 300 1350 / 1650 Balance 350 / 350 -1058 / -708 260 / 260 Weight last 48 hrs Weight 111.244 kg Weight 112.945 kg Physical Exam Narrative: General: No acute distress, AO x3 HEENT: PERRLA, pupils bilaterally equal and reactive Chest: Bilateral bronchial breath sounds, coarse crackles present in left lower zone, equal good air entry bilaterally CVS: S1-S2 regular, no murmurs, no tachycardia, no gallops, no rubs Abdomen: Soft, nontender, no organomegaly, bowel sounds present Neuro: No focal deficits, no facial deformity, AO x3, power 5/5 in all limbs Extremities: Below-knee amputation on left leg Data : 03/15/22 05:30 03/15/22 05:30 Micro: Microbiology 03/14/22 17:08 Urine Culture - Preliminary Urine,Clean Catch Gram Negative Rods 03/14/22 17:08 Bacterial Antigens - Final Urine Kidney 03/14/22 19:34 Legionella Urinary Antigen - Final Urine,Clean Catch A&P Assessment and plan (1) Dyspnea: Status: Acute (2) COPD (chronic obstructive pulmonary disease): Status: Acute (3) Congestive heart failure with preserved left ventricular function, NYHA class 1: Status: Acute (4) New onset atrial fibrillation: Status: Acute (5) Diabetes mellitus: Status: Acute Qualifiers: Diabetes mellitus type: type 2 Diabetes mellitus fpc insulin use: with technician terminal and repeater use Diabetes mellitus complication status: with kidney complications Diabetes mellitus complication detail: with chronic kidney disease Chronic kidney disease stage: stage 3 (moderate) Chronic kidney disease stage 3 subtype: stage 3b (GFR 30-44) Qualified Code(s): E11.21 - Type 2 diabetes mellitus with diabetic nephropathy; N18.32 - Chronic kidney disease, stage 3b; Z79.4 - rat exterminator (current) use of insulin (6) Hemoptysis: Status: Acute (7) Pneumonia: Status: Acute Plan Shortness of breath most likely 2/2 left lower lobe pneumonia leading to COPD exacerberation along with CHF. Consolidation seen on CT chest. Procalcitonin negative. Urine Legionella, bacterial antigen negative, flu swab, COVID-19 antigen negative. Sputum culture sent and awaited. For now continue with oral Levaquin 500 mg every 48 hours as per creatinine clearance and culture sensitivities from sputum culture on previous admission for stenotrophomonas. For COPD exacerberation: Duoneb Q6h, Budesonide BID Wean Solu-Medrol to 40 mg IV every 12 hourly. For CHF: Echo done earlier this month showed EF 55-60%, no RWMA 1 more day Lasix 40 mg IV QD we will switch to oral 40 mg Lasix tomorrow. Fluid restriction 1500 cc/day. Strict I/O. Daily weight. Bradycardia: No events on telemetry. Continue to monitor. Reported by patient. As per patient took extra lopressor. HR stable for now. For now c/w home meds. Afib: Slightly elevated running in low 100s to high 90s For now c/w home dose of amiodarone, Cardizem. Increase dose of Lopressor to 25 mg twice daily. C/w home dose of eliquis. Hemoptysis: Secondary to bronchitis. Hb stable. No active signs. Cepachol PRN. UTI: Urine culture growing gram-negative rods. Patient denies any active complaints. Levaquin for now should cover for same. We will follow-up sensitivities. CKD: Creat at baseline. BMP daily. C/w other chronic meds. FC Eliquis will suffice for DVT PPx. Protnix for PUD PPX. Attestations Medical Necessity Statement*: Requires further hospitalization for management of shortness of breath secondary to left lower lobe pneumonia leading to COPD exacerbation Time Spent in Patient Care: Greater than 35 minutes Coding Level of Care Code Acute Clinical Account Executive for [facility] Diagnoses Dyspnea R06.00 COPD (chronic obstructive pulmonary disease) J44.9 Congestive heart failure with preserved left ventricular function, NYHA class 1 I50.30 New onset atrial fibrillation I48.91 Diabetes mellitus E11.21; N18.32; Z79.4 Diabetes mellitus type: type 2 Diabetes mellitus technician terminal and repeater insulin use: with technician terminal and repeater use Diabetes mellitus complication status: with kidney complications Diabetes mellitus complication detail: with chronic kidney disease Chronic kidney disease stage: stage 3 (moderate) Chronic kidney disease stage 3 subtype: stage 3b (GFR 30-44) Hemoptysis R04.2 Pneumonia J18.9
[2022-03-15 11:34] LABS: Glucose Point of Care 394 mg/dL (70-110)
[2022-03-15] MEDS: tamsulosin 0.4 mg Capsule PO ×2 (11:51→22:16)
[2022-03-15] MEDS: pantoprazole DR 40 mg Tablet PO (11:52)
[2022-03-15] MEDS: ferrous sulfate EC 325 mg Tablet PO (11:53)
[2022-03-15] MEDS: losartan 50 mg Tablet PO (11:54)
[2022-03-15] MEDS: clopidogrel 75 mg Tablet PO (11:54)
[2022-03-15 11:57] LABS: Troponin T (5th) Once 28 ng/L (0-15)
[2022-03-15] MEDS: benzonatate 100 mg Capsule PO ×2 (15:46→22:16)
[2022-03-15 17:41] LABS: Glucose Point of Care 335 mg/dL (70-110)
[2022-03-15] MEDS: atorvastatin 40 mg Tablet 80 MG PO (18:17)
[2022-03-15 20:45] LABS: Glucose Point of Care 378 mg/dL (70-110)
[2022-03-15] MEDS: insulin glargine 100 units/1 mL 30 UNIT SUBCUT (22:17)
[2022-03-15] MEDS: metoprolol tartrate 25 mg Tablet PO (22:22)
[2022-03-16] VITALS (11 sets, daily range): BP systolic 94–132; BP diastolic 58–66; PULSE 67–119; RESP 14–20; TEMP 36.2–36.8; O2SAT 93–99
[2022-03-16 06:14] LABS: Basophils % 0.1 %; Hematocrit 37.2 % (42.0-52.0); Hemoglobin 11.2 g/dL (11.7-16.6); Lymphocytes # 0.8 10^3/uL (0.8-4.8); Lymphocytes % 6.1 %; Mean Corpuscular HGB Conc 30.1 g/dL (30.0-36.0); Mean Corpuscular Hemoglobin 28.9 pg (28.0-34.0); Mean Corpuscular Volume 95.9 fl (80-94); Mean Platelet Volume 10.5 fL (7.4-10.4); Monocytes # 0.6 10^3/uL (0.2-0.9); Monocytes % 4.1 %; Neutrophils # 12.15 10^3/uL (1.8-7.7); Neutrophils % 88.3 %; Nucleated Red Blood Cells % 0 %; Platelet Count 91 10^3/cmm (130-400); Red Blood Count 3.88 10^6/uL (4.1-5.3); Red Cell Distribution Width 15.8 % (12.1-15.1); White Blood Count 13.8 10^3/uL (4.0-10.0)
[2022-03-16 06:30] LABS: Glucose Point of Care 197 mg/dL (70-110)
[2022-03-16 06:37] LABS: Alanine Aminotransferase 28 U/L (0-41); Albumin Level 3.9 g/dL (3.5-5.2); Alkaline Phosphatase 37 IU/L (40-130); Anion Gap 20.8 (5-19); Aspartate Amino Transferase 11 U/L (0-40); Calcium 9.2 mg/dL (8.5-10.5); Carbon Dioxide 17 mmol/L (22-29); Chloride 100 mmol/L (98-107); Globulin 2.1 g/dL (1.3-4.6); Glucose 174 mg/dL (65-115); Osmolality Calculated 306 mOsm/kg (285-295); Potassium 4.8 mmol/L (3.5-5.1); Sodium 133 mmol/L (136-145); Total Bilirubin 0.9 mg/dL (0.15-1.2)
[2022-03-16 06:46] LABS: Blood Urea Nitrogen 86 mg/dL (8-23)
[2022-03-16] MEDS: budesonide 0.5 mg/2 mL Neb INHALATION ×2 (07:59→20:15)
[2022-03-16] MEDS: levETIRAcetam 500 mg Tablet PO ×2 (08:16→17:45)
[2022-03-16] MEDS: amiodarone 200 mg Tablet PO ×2 (08:16→20:15)
[2022-03-16] MEDS: benzonatate 100 mg Capsule PO ×3 (08:17→20:37)
[2022-03-16] MEDS: apixaban 5 mg Tablet PO ×2 (08:17→20:36)
[2022-03-16] MEDS: dilTIAZem ER (24HR) 180 mg Capsule 360 MG PO (08:18)
[2022-03-16] MEDS: escitalopram 10 mg Tablet 5 MG PO (08:20)
[2022-03-16] MEDS: FUROsemide 40 mg Tablet PO (08:20)
[2022-03-16] MEDS: insulin lispro 100 unit/1 mL SUBCUT ×4 (08:23→21:41)
[2022-03-16] MEDS: levoFLOXacin 500 mg Tablet PO (10:16)
[2022-03-16] MEDS: ferrous sulfate EC 325 mg Tablet PO (10:16)
[2022-03-16] MEDS: clopidogrel 75 mg Tablet PO (10:16)
[2022-03-16] MEDS: tamsulosin 0.4 mg Capsule PO ×2 (10:18→20:37)
[2022-03-16] MEDS: pantoprazole DR 40 mg Tablet PO (10:19)
--- NOTE | 2022-03-16 14:01 | P.PN_ITS ---
Subjective Subjective: No acute overnight. Patient states he is feeling better. Currently on room air. Laying comfortably in bed. Still having occasional episodes of cough with bloody streaks. Vitals/I&O/Wt Last Vital Signs Temp 97.1 F L 03/16/22 11:41 Pulse 107 H 03/16/22 11:41 Resp 14 03/16/22 11:41 BP 109/62 03/16/22 11:41 Pulse Ox 96 03/16/22 11:41 03/15/22 03/16/22 03/16/22 22:59 06:59 14:59 Output Total 500 / 500 310 / 810 Balance -500 / 0 -310 / -310 Weight last 48 hrs Weight 107.501 kg Weight 108.947 kg Weight 111.244 kg Physical Exam Narrative: General: No acute distress, AO x3 HEENT: PERRLA, pupils bilaterally equal and reactive Chest: Bilateral bronchial breath sounds, coarse crackles present in left lower zone, equal good air entry bilaterally CVS: S1-S2 regular, no murmurs, no tachycardia, no gallops, no rubs Abdomen: Soft, nontender, no organomegaly, bowel sounds present Neuro: No focal deficits, no facial deformity, AO x3, power 5/5 in all limbs Extremities: Below-knee amputation on left leg Data : 03/16/22 05:40 03/16/22 05:40 Micro: Microbiology 03/14/22 19:34 Gram Stain - Final Sputum - Expectorated Sputum Sputum Culture - Preliminary 03/14/22 19:34 MRSA Culture - Final Nose A&P Assessment and plan (1) Dyspnea: Status: Acute (2) COPD (chronic obstructive pulmonary disease): Status: Acute (3) Congestive heart failure with preserved left ventricular function, NYHA class 1: Status: Acute (4) New onset atrial fibrillation: Status: Acute (5) Diabetes mellitus: Status: Acute Qualifiers: Chronic kidney disease stage: stage 3 (moderate) Chronic kidney disease stage 3 subtype: stage 3b (GFR 30-44) Diabetes mellitus complication detail: with chronic kidney disease Diabetes mellitus complication status: with kidney complications Diabetes mellitus local intermodal truck driver insulin use: with prison use Diabetes mellitus type: type 2 Qualified Code(s): E11.21 - Type 2 diabetes mellitus with diabetic nephropathy; N18.32 - Chronic kidney disease, stage 3b; Z79.4 - [employer] terminal (current) use of insulin (6) Hemoptysis: Status: Acute (7) Pneumonia: Status: Acute Plan Shortness of breath most likely 2/2 left lower lobe pneumonia leading to COPD exacerberation along with CHF. Consolidation seen on CT chest. Procalcitonin negative. Urine Legionella, bacterial antigen negative, flu swab, COVID-19 antigen negative. Sputum culture sent and awaited. For now continue with oral Levaquin 500 mg every 48 hours as per creatinine clearance and culture sensitivities from sputum culture on previous admission for stenotrophomonas. For COPD exacerberation: Duoneb Q6h, Budesonide BID Wean Solu-Medrol to 40 mg IV every 12 hourly. For CHF: Echo done earlier this month showed EF 55-60%, no RWMA 1 more day Lasix 40 mg IV QD we will switch to oral 40 mg Lasix tomorrow. Fluid restriction 1500 cc/day. Strict I/O. Daily weight. Bradycardia: No events on telemetry. Continue to monitor. Reported by patient. As per patient took extra lopressor. HR stable for now. For now c/w home meds. Afib: Slightly elevated running in low 100s to high 90s For now c/w home dose of amiodarone, Cardizem. Increase dose of Lopressor to 25 mg twice daily. C/w home dose of eliquis. Hemoptysis: Secondary to bronchitis. Hb stable. No active signs. Cepachol PRN. UTI: Urine culture growing gram-negative rods. Patient denies any active complaints. Levaquin for now should cover for same. We will follow-up sensitivities. CKD: Creat at baseline. BMP daily. C/w other chronic meds. FC Eliquis will suffice for DVT PPx. Protnix for PUD PPX. Plan for day: Continue to monitor blood culture, urine culture. Continue with Levaquin with 48-hour as per creatinine clearance. Patient is euvolemic so stop Lasix. Blood pressure slightly soft so stop amlodipine. Wean down midline Solu-Medrol to 40 mg daily. Increase glargine to 30 units at bedtime. He oxygen saturation over 88%. Start on lozenges every 4 hours scheduled Attestations Medical Necessity Statement*: Requires further hospitalization for management of hypoxia secondary to left lower lobe pneumonia leading to COPD exacerbation Time Spent in Patient Care: Greater than 35 minutes Coding Level of Care Code Acute Assistant Professor Of Art for [facility] Fwd Diagnoses Dyspnea R06.00 COPD (chronic obstructive pulmonary disease) J44.9 Congestive heart failure with preserved left ventricular function, NYHA class 1 I50.30 New onset atrial fibrillation I48.91 Diabetes mellitus E11.21; N18.32; Z79.4 Chronic kidney disease stage: stage 3 (moderate) Chronic kidney disease stage 3 subtype: stage 3b (GFR 30-44) Diabetes mellitus complication detail: with chronic kidney disease Diabetes mellitus complication status: with kidney complications Diabetes mellitus local intermodal truck driver insulin use: with local intermodal truck driver use Diabetes mellitus type: type 2 Hemoptysis R04.2 Pneumonia J18.9
--- NOTE | 2022-03-16 17:21 | PC.NURSE ---
Patient AAOx4, VSS, refusing telemetry and oxygen throughout shift, frequent turns self. No new events, pleasant and calm, room clean and clutter free with call light in reach. Following fluid restrictions well.
[2022-03-16] MEDS: atorvastatin 40 mg Tablet 80 MG PO (17:45)
[2022-03-16] MEDS: albuterol 8 gm MDI 2 PUFF INHALATION ×2 (18:27→22:55)
[2022-03-16] MEDS: cefTRIAXone 1,000 MG in sodium chloride 0.9% (plus) 50 ML 100 MG IV (20:14)
[2022-03-16] MEDS: acetylcysteine 200 mg/mL SDV 4 mL 100 MG INHALATION (20:15)
[2022-03-16] MEDS: cetylpyridinium Lozenge 1 EACH MUCOUS MEM (20:16)
[2022-03-16] MEDS: metoprolol tartrate 25 mg Tablet PO (20:41)
[2022-03-16 20:56] LABS: Glucose Point of Care 272 mg/dL (70-110)
[2022-03-16 20:56] LABS: Glucose Point of Care 241 mg/dL (70-110)
[2022-03-16 20:56] LABS: Glucose Point of Care 265 mg/dL (70-110)
[2022-03-16 20:57] LABS: Glucose Point of Care 168 mg/dL (70-110)
[2022-03-16] MEDS: insulin glargine 100 units/1 mL 30 UNIT SUBCUT (21:38)
[2022-03-17] VITALS (67 sets, daily range): BP systolic 61–174; BP diastolic 36–133; PULSE 47–102; RESP 14–33; TEMP 36.6–37.1; O2SAT 89–100
[2022-03-17] MEDS: cetylpyridinium Lozenge 1 EACH MUCOUS MEM ×4 (00:19→15:23)
[2022-03-17] MEDS: acetaminophen 325 mg Tablet 650 MG PO ×2 (00:20→12:28)
[2022-03-17 06:29] LABS: Glucose Point of Care 179 mg/dL (70-110)
[2022-03-17] MEDS: acetylcysteine 200 mg/mL SDV 4 mL 100 MG INHALATION ×2 (08:09→11:10)
[2022-03-17] MEDS: budesonide 0.5 mg/2 mL Neb INHALATION ×2 (08:09→20:32)
[2022-03-17] MEDS: albuterol 8 gm MDI 2 PUFF INHALATION ×3 (08:10→16:16)
[2022-03-17] MEDS: escitalopram 10 mg Tablet 5 MG PO (08:20)
[2022-03-17] MEDS: dilTIAZem ER (24HR) 180 mg Capsule 360 MG PO (08:20)
[2022-03-17] MEDS: metoprolol tartrate 25 mg Tablet PO (08:21)
[2022-03-17] MEDS: apixaban 5 mg Tablet PO ×2 (08:22→22:54)
[2022-03-17] MEDS: benzonatate 100 mg Capsule PO ×2 (08:22→15:22)
[2022-03-17] MEDS: amiodarone 200 mg Tablet PO (08:22)
[2022-03-17] MEDS: levETIRAcetam 500 mg Tablet PO ×2 (08:22→17:01)
[2022-03-17] MEDS: insulin lispro 100 unit/1 mL SUBCUT ×4 (08:23→22:55)
[2022-03-17] MEDS: clopidogrel 75 mg Tablet PO (10:11)
[2022-03-17] MEDS: pantoprazole DR 40 mg Tablet PO (10:11)
[2022-03-17] MEDS: tamsulosin 0.4 mg Capsule PO (10:11)
[2022-03-17] MEDS: ferrous sulfate EC 325 mg Tablet PO (10:12)
--- NOTE | 2022-03-17 10:44 | PC.SOCIAL ---
Pg 2 IMM Explained to pt Pg 2 IMM. No questions voiced. Provided pt a copy. Initialed, dated, & timed a copy & placed in chart.
[2022-03-17 11:07] LABS: Oxygen Device NC
[2022-03-17 11:53] LABS: Glucose Point of Care 279 mg/dL (70-110)
--- NOTE | 2022-03-17 13:22 | P.PN_ITS ---
Subjective Subjective: No complaints overnight. Denies any nausea, vomiting, headache. Laying comfortably in bed. Saturating well on room air. States bloody streak in the cough has resolved as well. Complaining of mild headache and chest pain today. Vitals/I&O/Wt Last Vital Signs Temp 97.8 F 03/17/22 12:00 Pulse 89 03/17/22 12:00 Resp 14 03/17/22 12:00 BP 92/65 03/17/22 12:00 Pulse Ox 93 03/17/22 12:00 03/16/22 03/17/22 03/17/22 22:59 06:59 14:59 Intake Total 1007 / 1127 360 / 360 Output Total 720 / 720 200 / 920 200 / 200 Balance 287 / 407 -200 / 207 160 / 160 Weight last 48 hrs Weight 107.501 kg Physical Exam Narrative: General: No acute distress, AO x3 HEENT: PERRLA, pupils bilaterally equal and reactive Chest: Bilateral bronchial breath sounds, coarse crackles present in left lower zone, equal good air entry bilaterally CVS: S1-S2 regular, no murmurs, no tachycardia, no gallops, no rubs Abdomen: Soft, nontender, no organomegaly, bowel sounds present Neuro: No focal deficits, no facial deformity, AO x3, power 5/5 in all limbs Extremities: Below-knee amputation on left leg Data : 03/16/22 05:40 03/16/22 05:40 Micro: Microbiology 03/14/22 19:34 Gram Stain - Final Sputum - Expectorated Sputum Sputum Culture - Final 03/14/22 17:08 Urine Culture - Final Urine,Clean Catch Klebsiella oxytoca A&P Assessment and plan (1) Dyspnea: Status: Acute (2) COPD (chronic obstructive pulmonary disease): Status: Acute (3) Congestive heart failure with preserved left ventricular function, NYHA class 1: Status: Acute (4) New onset atrial fibrillation: Status: Acute (5) Diabetes mellitus: Status: Acute Qualifiers: Chronic kidney disease stage: stage 3 (moderate) Chronic kidney disease stage 3 subtype: stage 3b (GFR 30-44) Diabetes mellitus complication detail: with chronic kidney disease Diabetes mellitus complication status: with kidney complications Diabetes mellitus mcc insulin use: with mcc use Diabetes mellitus type: type 2 Qualified Code(s): E11.21 - Type 2 diabetes mellitus with diabetic nephropathy; N18.32 - Chronic kidney disease, stage 3b; Z79.4 - [facility] (current) use of insulin (6) Hemoptysis: Status: Acute (7) Pneumonia: Status: Acute Plan Shortness of breath most likely 2/2 left lower lobe pneumonia leading to COPD exacerberation along with CHF. Consolidation seen on CT chest. Procalcitonin negative. Urine Legionella, bacterial antigen negative, flu swab, COVID-19 antigen negative. Sputum culture sent and awaited. For now continue with oral Levaquin 500 mg every 48 hours as per creatinine clearance and culture sensitivities from sputum culture on previous admission for stenotrophomonas. For COPD exacerberation: Duoneb Q6h, Budesonide BID Wean Solu-Medrol to 40 mg IV every 12 hourly. For CHF: Echo done earlier this month showed EF 55-60%, no RWMA 1 more day Lasix 40 mg IV QD we will switch to oral 40 mg Lasix tomorrow. Fluid restriction 1500 cc/day. Strict I/O. Daily weight. Bradycardia: No events on telemetry. Continue to monitor. Reported by patient. As per patient took extra lopressor. HR stable for now. For now c/w home meds. Afib: Slightly elevated running in low 100s to high 90s For now c/w home dose of amiodarone, Cardizem. Increase dose of Lopressor to 25 mg twice daily. C/w home dose of eliquis. Hemoptysis: Secondary to bronchitis. Hb stable. No active signs. Cepachol PRN. UTI: Urine culture growing gram-negative rods. Patient denies any active complaints. Levaquin for now should cover for same. We will follow-up sensitivities. CKD: Creat at baseline. BMP daily. C/w other chronic meds. FC Eliquis will suffice for DVT PPx. Protnix for PUD PPX. Plan for day: Change antibiotics to ceftriaxone as per culture results. Sputum culture negative. Continue to monitor telemetry. Continue with Cardizem and metoprolol. Decrease dose of metoprolol to 12.5 mg twice daily. Switch from IV Solu-Medrol to oral prednisone. We will do a quick taper. Plan for discharge: Plan to discharge the next 24 hours on quick steroid taper. Attestations Medical Necessity Statement*: Requires further hospitalization for management of shortness of breath secondary to left lower lobe pneumonia, COPD exacerbation Time Spent in Patient Care: Greater than 35 minutes Coding Level of Care Code Acute Hand Wood Sander for [facility] Fwd Diagnoses Dyspnea R06.00 COPD (chronic obstructive pulmonary disease) J44.9 Congestive heart failure with preserved left ventricular function, NYHA class 1 I50.30 New onset atrial fibrillation I48.91 Diabetes mellitus E11.21; N18.32; Z79.4 Chronic kidney disease stage: stage 3 (moderate) Chronic kidney disease stage 3 subtype: stage 3b (GFR 30-44) Diabetes mellitus complication detail: with chronic kidney disease Diabetes mellitus complication status: with kidney complications 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
[2022-03-17] MEDS: morphine 4 mg/mL SDV 1 mL 1 MG IVP (14:30)
--- NOTE | 2022-03-17 15:25 | XR_ITS ---
WS: [id number] Portable AP upright chest, 03/17/2022 Clinical Data: sob Comparison: Portable chest, 03/14/2022. Findings: There is bilateral pulmonary vascular congestion. No pneumonia or effusions are seen. There are no nodules or masses. The heart is enlarged. There is osteoarthritis of both shoulders. XR/XR chest 1V portable [id number] Impression: Pulmonary vascular congestion with cardiomegaly consistent with moderate conges tive heart failure.
--- NOTE | 2022-03-17 15:25 | ECG_ITS ---
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 Measurements Intervals [place] Rate: 73 P: TN: QRS: -3 QRSD: 92 T: 79 QT: 364 QTc: 401 Interpretive Statements ATRIAL FIBRILLATION LOW QRS VOLTAGE IN PRECORDIAL LEADS [QRS DEFLECTION < 1.0 mV IN CHEST LEADS] NONSPECIFIC T-WAVE ABNORMALITY ABNORMAL RHYTHM ECG Compared to ECG 03/14/2022 20:56:32 Low QRS voltage now present T-wave abnormality now present Myocardial infarct finding no longer present Electronically Signed On 03-17-2022 20:20:38 CDT by Sudeep Cotto M.D. [email or web address] [email or web address] [facility] hospital.[employer]rocial/store/OM/[id number]
[2022-03-17] MEDS: ALPRAZolam 0.5 mg Tablet PO (15:44)
[2022-03-17] MEDS: ipratropium-albuterol 3 mL Neb INHALATION ×2 (16:02→20:32)
[2022-03-17 16:47] LABS: ABG PCO2 29.3 mmHg (35-45); ABG PH Result 7.33 (7.35-7.45); Alveolar-Arterial Oxygen Gradi 45.6 mmHg (5-10); Base Excess ABG -9.1 mmol/L (-2.0-2.0); Blood Gas Allen Test Pos; Blood Gas Operator Identificat KINCH; Blood Gas Sample Site Radial, left; Blood Gas Sample Type Arterial; Carboxyhemoglobin 1.3 %THgb (0.4-20.1); HCO3 ABG 15.5 mmol/L (22-26); HGB O2 Sat 87.5 % (95-100); Ionized Calcium Level - ABG 1.3 mmol/L (1.1-1.4); Methemoglobin 0.9 % (0.4-1.5); Oxygen Device OXY MASK; Oxygen Saturation ABG 89.5; PO2 ABG 63.9 mmHg (80.0-100.0); Potassium Level - ABG 5.6 mmol/L (3.5-5.0); Total Hemoglobin 11.7 g/dL (14-18)
[2022-03-17] MEDS: FUROsemide 10 mg/mL SDV 4mL 40 MG IVP (16:53)
[2022-03-17] MEDS: atorvastatin 40 mg Tablet 80 MG PO (17:01)
--- NOTE | 2022-03-17 17:42 | W.PM.EVENTAC ---
Event Note Event Note: Got a call from nurse regarding patient being anxious. On further evaluation found patient to be hypoxic down to 88 to 90% on 6 L FiO2 which is different than when seen client executive when he was on room air. Tachypneic on examination. Heart rate found to be bouncing between high 50s to low 60s. Blood pressure 90 systolic. Patient transitioned over to heated high flow to maintain saturation over 90%. Start labs including CBC, CMP, proBNP, D-dimer appreciated. Showing leukocytosis, worsening of BUN and creatinine, elevated proBNP of more than 7000, normal D-dimer. Plan: Hold off on any further beta-nancy or Cardizem. Continue with amiodarone. Patient given 40 mg of IV Solu-Medrol. Switch to DuoNebs and budesonide. Given 40 mg of IV Lasix. Maciel catheterization for strict input output charting. Transfer to ICU for further evaluation and monitoring. Depending on clinical picture overnight patient might need reversal of Cardizem and beta-nancy. Event Notes Attestations Time Spent in Patient Care: The high probability of a clinically significant, sudden or life threatening deterioration of the patient's [pulmonary, cardiac system(s) required my full and direct attention, intervention and personal management. The critical care time is as shown. This time is in addition to time spent performing any reported procedures but includes the following: [x] Data and vital sign review and interpretation [x] Patient assessment, examination and intervention [x] Documentation [x] Medication orders and management 60
[2022-03-17 17:49] LABS: Basophils % 0.1 %; Hematocrit 37.6 % (42.0-52.0); Hemoglobin 11.3 g/dL (11.7-16.6); Lymphocytes # 0.8 10^3/uL (0.8-4.8); Lymphocytes % 4.1 %; Mean Corpuscular HGB Conc 30.1 g/dL (30.0-36.0); Mean Corpuscular Hemoglobin 29.3 pg (28.0-34.0); Mean Corpuscular Volume 97.4 fl (80-94); Mean Platelet Volume 11.1 fL (7.4-10.4); Monocytes # 0.8 10^3/uL (0.2-0.9); Monocytes % 4.6 %; Neutrophils # 16.57 10^3/uL (1.8-7.7); Neutrophils % 89.8 %; Nucleated Red Blood Cells % 0 %; Platelet Count 128 10^3/cmm (130-400); Red Blood Count 3.86 10^6/uL (4.1-5.3); Red Cell Distribution Width 16.1 % (12.1-15.1); White Blood Count 18.4 10^3/uL (4.0-10.0)
[2022-03-17 18:09] LABS: D Dimer 0.38 ug/mIFEU (0-0.59)
[2022-03-17 18:13] LABS: Alanine Aminotransferase 32 U/L (0-41); Alkaline Phosphatase 30 IU/L (40-130); Anion Gap 24.9 (5-19); Aspartate Amino Transferase 16 U/L (0-40); Calcium 9.6 mg/dL (8.5-10.5); Carbon Dioxide 15 mmol/L (22-29); Chloride 96 mmol/L (98-107); Globulin 2.1 g/dL (1.3-4.6); Glucose 269 mg/dL (65-115); Osmolality Calculated 311 mOsm/kg (285-295); Potassium 5.9 mmol/L (3.5-5.1); Sodium 130 mmol/L (136-145); Total Bilirubin 0.7 mg/dL (0.15-1.2); Total Protein 6.1 g/dL (6.6-8.7)
[2022-03-17 18:20] LABS: Blood Urea Nitrogen 101 mg/dL (8-23); NT Pro B Type Natriuretic Pept 7918 pg/mL (0-125)
[2022-03-17] MEDS: cefTRIAXone 1,000 MG in sodium chloride 0.9% (plus) 50 ML 100 MG IV (18:44)
--- NOTE | 2022-03-17 19:47 | XRR_ITS ---
PROCEDURE INFORMATION: Exam: XR Chest Exam date and time: 03/17/2022 7:51 PM Age: 66 years old Clinical indication: Dyspnea; Additional info: Short of breath TECHNIQUE: Imaging protocol: XR of the chest. Views: 1 view. COMPARISON: CR XR chest 1V portable [id number] 03/17/2022 3:33 PM FINDINGS: Lungs: Stable mild interstitial pulmonary edema with superimposed atelectasis versus pneumonia in the left lower lobe. Pleural spaces: No pleural effusion. No pneumothorax. Heart/Mediastinum: Stable marked enlargement of the cardiac silhouette. Mediastinal contours are unremarkable. Vasculature: Stable vascular calcifications in the aorta. Bones/joints: Unremarkable for age. XR/XR chest 1V portable [id number] IMPRESSION: 1. Stable mild interstitial pulmonary edema with superimposed atelectasis versus pneumonia in the left lower lobe. Recommend followup chest imaging to insure resolution of these findings. 2. Incidental/nonacute findings are listed in the report.
--- NOTE | 2022-03-17 19:48 | ECG_ITS ---
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 Measurements Intervals [place] Rate: 54 P: LA: QRS: 1 QRSD: 114 T: 53 QT: 400 QTc: 380 Interpretive Statements ATRIAL FIBRILLATION WITH SLOW VENTRICULAR RESPONSE POSSIBLE ANTERIOR MYOCARDIAL INFARCTION , OF INDETERMINATE AGE [30 ms Q WAVE IN V3/V4, OR R < 0.2 mV IN V4] INFERIOR MYOCARDIAL INFARCTION , PROBABLY OLD [40+ ms Q WAVE AND/OR ST/T ABNORMALITY IN II/aVF] INTERPRETATION BASED ON A DEFAULT AGE OF 40 YEARS Compared to ECG 03/17/2022 14:43:46 Myocardial infarct finding now present T-wave abnormality no longer present Electronically Signed On 03-18-2022 21:55:54 CDT by Sudeep Cotto M.D. [email or web address].[employer]/store/[id number]
[2022-03-17] MEDS: DOPamine drip 400 MG/250 ML PREMIX 20.37 MG IV (20:13)
[2022-03-17 20:29] LABS: ABG PCO2 33.9 mmHg (35-45); ABG PH Result 7.23 (7.35-7.45); Alveolar-Arterial Oxygen Gradi 41.3 mmHg (5-10); Arterial Blood Gas Hematocrit 37.2 % (42-52); Base Excess ABG -12.3 mmol/L (-2.0-2.0); Blood Gas Allen Test Pos; Blood Gas Operator Identificat JB; Blood Gas Sample Site Radial, right; Blood Gas Sample Type Arterial; Carboxyhemoglobin 1.3 %THgb (0.4-20.1); HCO3 ABG 14.2 mmol/L (22-26); HGB O2 Sat 85.5 % (95-100); Ionized Calcium Level - ABG 1.3 mmol/L (1.1-1.4); Methemoglobin 0.8 % (0.4-1.5); Oxygen Device BIPAP; Oxygen Saturation ABG 87.4; PO2 ABG 63.6 mmHg (80.0-100.0); Potassium Level - ABG 6.2 mmol/L (3.5-5.0); Total Hemoglobin 12.1 g/dL (14-18)
[2022-03-17] MEDS: DOPamine drip 400 MG/250 ML PREMIX 61.11 MG IV (20:34)
[2022-03-17] MEDS: calcium gluconate 0.9% NaCL 1 GM/50 ML PREMIX IV (20:37)
[2022-03-17] MEDS: vancomycin 1,250 MG/250 ML PIGGYBACK 250 MG IV (21:49)
[2022-03-17 21:54] LABS: Glucose Point of Care 343 mg/dL (70-110)
--- NOTE | 2022-03-17 22:08 | PC.NURSE ---
Patient arrived from med/surg, placed patient on monitors. Could not get a BP on him. HR was in the 30-40's A-fib, looked schrader, was not saturating well enough to get a reading. Dr. May at bedside. Ordered to place patient on BIPAP, and to start levophed and dopamine. All three were done. For the first 2hrs we were unable to get successful BP's. Once BIPAP, dopamine and levophed were at adequate levels patient stabilized.
--- NOTE | 2022-03-17 22:24 | W.PM.EVENTAC ---
Event Notes Attestations Time Spent in Patient Care: I was asked to evaluate the patient on stat basis in the ICU When I evaluated patient patient was very drowsy and lethargic He was on high flow 60% saturating 90% however he was showing signs of respiratory distress I asked RT to put him on BiPAP right away We were not able to measure his blood pressure, manually systolic blood pressure was around 70 mmHg His heart rate was fluctuating between 45-65 I requested nurse to start Levophed right away along dopamine Requested ABG, twelve-lead EKG, BMP, troponin and chest x-ray Patient was complaining of respiratory distress He was moaning in pain He seemed a bit confused however verbally redirectable No signs of stroke Pale complexion patient was diaphoretic Distended abdomen Bilateral breath sounds with rhonchi and crackles Assessment and plan Drug-induced bradycardia Patient has received amiodarone and Cardizem long-acting this morning Noticed hyperkalemia These are all reversible causes for bradycardia his EKG showing A. fib RVR with slow ventricular response, right now on Levophed and dopamine his heart rate and blood pressure has improved, on BiPAP his respite distress has improved as well Chest x-ray showing signs of vascular congestion, left lower lobe infiltrate ABG revealed metabolic acidosis I treated him for hyperkalemia with 10 units of insulin, D5 and calcium gluconate Calcium gluconate we will also reverse effect of Cardizem In case of any further deterioration related to bradycardia arrhythmia, will notify cardiology
[2022-03-17] MEDS: insulin glargine 100 units/1 mL 30 UNIT SUBCUT (22:54)
[2022-03-18] VITALS (186 sets, daily range): BP systolic 97–184; BP diastolic 64–120; PULSE 76–130; RESP 12–34; TEMP 36.2–37.1; O2SAT 81–100
--- NOTE | 2022-03-18 00:22 | XRR_ITS ---
PROCEDURE INFORMATION: Exam: XR Chest Exam date and time: 03/18/2022 12:33 AM Age: 66 years old Clinical indication: Other vascular access device placement or adjustment; Central line, non-tunnelled; Patient HX: Check S/P RT central line placement TECHNIQUE: Imaging protocol: XR of the chest. Views: 1 view. COMPARISON: CR (CHEST, ) 03/17/2022 7:51 PM FINDINGS: Tubes, catheters and devices: Right neck approach central venous catheter terminates in the proximal to mid SVC. Lungs: Hazy opacities of lungs with coarsened increased interstitial lung markings diffusely. Pleural spaces: Unremarkable. No pleural effusion. No pneumothorax. Heart/Mediastinum: Unremarkable. No cardiomegaly. Bones/joints: Unremarkable. XR/XR chest 1V portable [id number] IMPRESSION: Central venous catheter in the proximal to mid SVC.
[2022-03-18] MEDS: DOPamine drip 400 MG/250 ML PREMIX 20.37 MG IV (00:55)
[2022-03-18] MEDS: insulin regular-human 10 UNIT in SYRINGE 1 EACH 600 UNIT IVP (00:55)
--- NOTE | 2022-03-18 00:58 | PM.ACPR ---
Acute Procedures Central Line Placement: Right IJ: Time out performed: Yes Patient placed on monitor/pulse ox: Yes MD prep: mask, gown and gloves Central line prep: Povidone-Iodine 1%, Chlorhexidine scrub and sterile drapes applied Local anesthesia used: lidocaine 1% Amount of anesthesia used (ml): 5 Ultrasound used for placement: Yes Central line lumen inserted: triple Post procedure: sutured in place, good blood return, all ports aspirated, flushed, capped and sterile dressing applied Post procedure x-ray: tip of catheter in good position and no pneumothorax seen Patient tolerated procedure: well and no complications Complications: none Additional comments: Central line was placed because patient was requiring Levophed and dopamine Consent was taken from the patient and his
--- NOTE | 2022-03-18 01:08 | PC.NURSE ---
Assisted Dr. May with placing a central line into RT IJ. Patient continues to complain of being thirsty, so the doctor attempted placing patient back on heated high flow. Allowed patient to have a drink. After 5mins he was stating he couldn't not breath, so we had to place back on BIPAP.
--- NOTE | 2022-03-18 01:15 | PC.NURSE ---
Due to patients blood sugars being 356, Dr. May ordered to only give IV insulin not the dextrose. Will monitor blood glucose after IV insulin.
[2022-03-18] MEDS: ipratropium-albuterol 3 mL Neb INHALATION ×3 (02:10→15:10)
[2022-03-18 02:18] LABS: Glucose Point of Care 231 mg/dL (70-110)
[2022-03-18 02:18] LABS: Glucose Point of Care 359 mg/dL (70-110)
[2022-03-18 02:18] LABS: Glucose Point of Care 217 mg/dL (70-110)
[2022-03-18 04:03] LABS: Basophils % 0.1 %; Hematocrit 34.9 % (42.0-52.0); Hemoglobin 10.7 g/dL (11.7-16.6); Lymphocytes # 0.6 10^3/uL (0.8-4.8); Lymphocytes % 4.6 %; Mean Corpuscular HGB Conc 30.7 g/dL (30.0-36.0); Mean Corpuscular Hemoglobin 29.2 pg (28.0-34.0); Mean Corpuscular Volume 95.4 fl (80-94); Mean Platelet Volume 10.8 fL (7.4-10.4); Monocytes # 0.9 10^3/uL (0.2-0.9); Monocytes % 7.1 %; Neutrophils % 87.2 %; Nucleated Red Blood Cells % 0.2 %; Platelet Count 84 10^3/cmm (130-400); Red Blood Count 3.66 10^6/uL (4.1-5.3); Red Cell Distribution Width 15.7 % (12.1-15.1); White Blood Count 11.9 10^3/uL (4.0-10.0)
[2022-03-18 04:22] LABS: Alanine Aminotransferase 34 U/L (0-41); Alkaline Phosphatase 28 IU/L (40-130); Anion Gap 25.2 (5-19); Aspartate Amino Transferase 15 U/L (0-40); Calcium 9.5 mg/dL (8.5-10.5); Carbon Dioxide 17 mmol/L (22-29); Chloride 96 mmol/L (98-107); Glomerular Filtration Rate 16.6 mL/min (90-130); Glucose 165 mg/dL (65-115); Osmolality Calculated 313 mOsm/kg (285-295); Potassium 5.2 mmol/L (3.5-5.1); Sodium 133 mmol/L (136-145); Total Bilirubin 0.7 mg/dL (0.15-1.2)
[2022-03-18 04:39] LABS: Blood Urea Nitrogen 106 mg/dL (8-23)
[2022-03-18 06:20] LABS: Troponin T (5th) Once 46 ng/L (0-15)
[2022-03-18 08:22] LABS: Glucose Point of Care 148 mg/dL (70-110)
[2022-03-18] MEDS: sodium bicarbonate 650 mg Tablet PO ×2 (09:31→17:30)
[2022-03-18] MEDS: benzonatate 100 mg Capsule PO ×3 (09:32→20:39)
[2022-03-18] MEDS: predniSONE 20 mg Tablet 40 MG PO (09:32)
[2022-03-18] MEDS: amiodarone 200 mg Tablet PO ×2 (09:33→20:39)
[2022-03-18] MEDS: levETIRAcetam 500 mg Tablet PO ×2 (09:33→17:30)
[2022-03-18] MEDS: apixaban 5 mg Tablet PO ×2 (09:33→20:44)
[2022-03-18] MEDS: escitalopram 10 mg Tablet 5 MG PO (09:34)
[2022-03-18] MEDS: insulin lispro 100 unit/1 mL SUBCUT ×4 (09:35→20:39)
[2022-03-18] MEDS: budesonide 0.5 mg/2 mL Neb INHALATION ×2 (09:37→20:11)
--- NOTE | 2022-03-18 10:02 | CTR_ITS ---
PROCEDURE INFORMATION: Exam: CT Chest Without Contrast; Diagnostic Exam date and time: 03/18/2022 1:55 PM Age: 66 years old Clinical indication: Shortness of breath; Patient HX: Resp failure; Additional info: Respiratory failure, hemoptysis, possible abscess TECHNIQUE: Imaging protocol: Diagnostic computed tomography of the chest without contrast. Radiation optimization: All CT scans at this facility use at least one of these dose optimization techniques: automated exposure control; mA and/or kV adjustment per patient size (includes targeted exams where dose is matched to clinical indication); or iterative reconstruction. COMPARISON: CT chest con [id number] 03/15/2022 12:56 AM RADIATION DOSE METRICS: Total DLP (mGy-cm): 1048.43 FINDINGS: Lungs: [id number] nonspecific bilateral pulmonary opacities most consistent with pneumonia. Pleural spaces: Unremarkable. No pneumothorax. No pleural effusion. Heart: Severe calcified coronary artery disease. Lymph nodes: Unremarkable. No enlarged lymph nodes. Vasculature: Calcification of the thoracic aorta and/or great vessels consistent with atherosclerotic vessel disease. Gallbladder and bile ducts: Solitary gallstone within the gallbladder. Bones/joints: Mild thoracic spondylosis. Soft tissues: Unremarkable. Other findings: Examination is limited secondary to motion artifact. CT/CT chest con [id number] IMPRESSION: 1. [id number] nonspecific bilateral pulmonary opacities most consistent with pneumonia. 2. Severe calcified coronary artery disease. 3. Solitary gallstone within the gallbladder.
[2022-03-18] MEDS: clopidogrel 75 mg Tablet PO (11:11)
[2022-03-18] MEDS: pantoprazole DR 40 mg Tablet PO (11:11)
[2022-03-18] MEDS: tamsulosin 0.4 mg Capsule PO ×2 (11:11→20:44)
[2022-03-18] MEDS: cetylpyridinium Lozenge 1 EACH MUCOUS MEM (11:11)
[2022-03-18] MEDS: ferrous sulfate EC 325 mg Tablet PO (11:12)
[2022-03-18] MEDS: fluticasone nasal spray 16gm Btl 2 SPRAY INTRANASAL (11:12)
[2022-03-18] MEDS: insulin regular-human 10 UNIT in SYRINGE 1 EACH IVP (11:13)
[2022-03-18 12:27] LABS: Glucose Point of Care 347 mg/dL (70-110)
[2022-03-18 12:43] LABS: Add Urine Microscopic? NO; Charge for UA Resulting for Rev
[2022-03-18 13:10] LABS: Potassium, Radom Urine 20 mmol/L; Urine Creatinine 57 mg/dL (39-259); Urine Random Sodium 47 mmol/L
[2022-03-18 13:11] LABS: Urine Random Chloride 15 mmol/L
[2022-03-18] MEDS: dilTIAZem 30 mg Tablet PO ×3 (13:31→20:39)
[2022-03-18] MEDS: FUROsemide 10 mg/mL SDV 4mL 40 MG IVP (13:31)
[2022-03-18 14:13] LABS: Specific Gravity, Urine 1.015 (1.005-1.030); Urine Appearance Clear (CLEAR); Urine Color Yellow (Yellow); pH Urine 5 (5-7)
[2022-03-18 14:14] LABS: Bilirubin Urine Neg (Negative); Blood Urine Neg (Negative); Eosinophil Urine No Eosinophils Seen; Glucose Urine UA 2+ (Normal); Ketones Urine Negative (Negative); Leukocyte Esterase Urine Negative (Negative); Nitrate Urine Negative (Negative); Protein Urine Neg (Negative); Urine Eosinophil Count 0 (0-0); Urobilinogen Urine Norm (Negative)
--- NOTE | 2022-03-18 15:47 | P.PN_ITS ---
Subjective Subjective: Overnight events noted. In summary: Patient developed bradycardia and hypotensive for which central line was placed and patient was briefly placed on Levophed and dopamine. Both Levophed and dopamine switched off at around 1 AM. Post starting of pressors patient had around 1500 cc of urine output. No more Lasix given. Overnight patient was placed on BiPAP. Today morning seen with at bedside. Patient has been transition back to heated high flow. Currently on 50 L 60%. Patient is awake and alert able to have complete conversation. Heart rate running in high 90s to low 100s. Mean arterial pressure over 65. Documented urine output in last 24 hours since placement of urinary catheter more than 2.5 L. Vitals/I&O/Wt Last Vital Signs Temp 98.7 F 03/18/22 12:40 Pulse 110 H 03/18/22 15:11 Resp 20 H 03/18/22 15:10 BP 124/95 03/18/22 12:50 Pulse Ox 99 03/18/22 15:11 03/18/22 03/18/22 03/18/22 06:59 14:59 22:59 Intake Total 606.035 / 2189.923 570.2 / 570.2 Output Total 1500 / 2075 1550 / 1550 1100 / 2650 Balance -893.965 / 114.923 -979.8 / -979.8 -1100 / -2079.8 Weight last 48 hrs Weight 105.007 kg Weight 108.635 kg Physical Exam Narrative: General: No acute distress, AO x3 HEENT: PERRLA, pupils bilaterally equal and reactive Chest: Bilateral bronchial breath sounds, coarse and fine crackles present all over the lung wray, good equal air entry bilaterally. 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 Urinary Catheter Management: Maciel: Cath Placed During This Visit: yes Reason for Continuing Indwelling Catheter: Accurate Measurement of Urinary Output in Critically Ill Patients Urinary Catheter Date of Insertion: 03/17/22 Urinary Catheter Time of Insertion: 18:30 Data : 03/18/22 03:30 03/18/22 03:30 Micro: Microbiology 03/18/22 10:53 Blood Culture - Preliminary Blood SPECIMEN COLLECTED 03/18/22 10:50 Blood Culture - Preliminary Blood SPECIMEN COLLECTED A&P Assessment and plan (1) Acute respiratory failure with hypoxia: Status: Acute (2) Congestive heart failure with preserved left ventricular function, NYHA clas s 1: Status: Acute (3) Pneumonia: Status: Acute (4) COPD (chronic obstructive pulmonary disease): Status: Acute (5) Atrial fibrillation with slow ventricular response: Status: Acute (6) New onset atrial fibrillation: Status: Acute (7) Acute kidney injury superimposed on CKD: Status: Acute (8) Diabetes mellitus: Status: Acute Qualifiers: Diabetes mellitus type: type 2 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 Repeat CT chest. Sputum culture positive for Klebsiella. Same Klebsiella present in urine culture. Repeat blood culture. MRSA swab negative. Urine Legionella, bacterial antigen, flu swab, COVID-19 antigen negative. Continue with IV ceftriaxone as per sensitivities. For now start patient on vancomycin. Follow Vanco random levels daily. For congestive heart failure: Recent echo done earlier this month shows an EF 55 to 60% without regional wall motion abnormality. IV Lasix 40 mg once. Will dose daily. Target 2 L negative. Strict input output charting, daily weights. Fluid restriction up to 1500 cc. COPD exacerberation: Ipratropium, Xopenex every 6 hour, Budesonide BID Prednisone 40 mg oral daily. We will do a short course of on 5 days. Atrial fibrillation: Slow ventricular response: Seen on telemetry yesterday. Prior to that heart rate has been stable. Hold off on Cardizem and metoprolol. Continue with home dose of amiodarone. Will reinitiate Cardizem at a lower dose of 30 mg 4 times daily. Uptitrate keeping heart rate less than 100. For now c/w home meds. C/w home dose of eliquis. Hemoptysis: Secondary to bronchitis versus congestive heart failure Hb stable. No active signs. Cepachol PRN. UTI: No active symptoms. Urine culture growing Klebsiella. Ceftriaxone will cover as well. CKD: PRESTON on CKD. Baseline creatinine 2.5-2.9. Also seen 3.2 earlier this year. Most likely cardiorenal syndrome. Check urine lites, urine analysis, urine eosinophils, urine creatinine. Medical reconciliation done for nephrotoxic drugs. C/w other chronic meds. FC Eliquis will suffice for DVT PPx. Protnix for PUD PPX. Attestations Medical Necessity Statement*: Requires further hospitalization for management of acute respiratory failure secondary congestive heart failure, left lower lobe pneumonia, PRESTON on CKD, atrial fibrillation with slow ventricular response Critical Care Time: The high probability of a clinically significant, sudden or life threatening deterioration of the patient's [pulmonary, cardiac, renal system(s) required my full and direct attention, intervention and personal management. The critical care time is as shown. 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
[2022-03-18] MEDS: atorvastatin 40 mg Tablet 80 MG PO (17:30)
[2022-03-18 17:42] LABS: Glucose Point of Care 242 mg/dL (70-110)
[2022-03-18 19:10] LABS: Anion Gap 22.4 (5-19); Calcium 9.7 mg/dL (8.5-10.5); Carbon Dioxide 19 mmol/L (22-29); Chloride 97 mmol/L (98-107); Glomerular Filtration Rate 21.2 mL/min (90-130); Glucose 257 mg/dL (65-115); Osmolality Calculated 317 mOsm/kg (285-295); Potassium 4.4 mmol/L (3.5-5.1); Sodium 134 mmol/L (136-145)
[2022-03-18 19:13] LABS: Blood Urea Nitrogen 97 mg/dL (8-23)
--- NOTE | 2022-03-18 19:20 | PC.NURSE ---
Addendum entered by Mauricio Saldana RN 03/18/22 19:22: entered note into wrong account Original Note: at approximately 1645, patient became short of breath, saturations in the high 70's and low 80's. Nurse administered morphone for air hunger, and was able to motor coach tour operator the patient through brathing techniques. After about 10 minutes, patient was able to fully recover. Lung sounds on the right side now have crackles, and patient states he feels as though something is wrong. Can't specifically say, just that he feels that something isn't right. Nurse alerted Dr west and ángel. received orders for an Xray and continued observation.
--- NOTE | 2022-03-18 19:26 | PC.NURSE ---
shift summary: uneventful shift. Patient spent about 50% of the day up to a chair. Total urine output was 3750 mL with 2200mL of the occurring after lasix administration.
[2022-03-18] MEDS: levalbuterol 0.63 mg/3 mL Neb INHALATION (20:11)
[2022-03-18] MEDS: ipratropium 0.5 mg/2.5 mL Neb INHALATION (20:11)
[2022-03-18 20:14] LABS: Glucose Point of Care 305 mg/dL (70-110)
[2022-03-18 20:16] LABS: Glucose Point of Care 355 mg/dL (70-110)
[2022-03-18 20:16] LABS: Glucose Point of Care 282 mg/dL (70-110)
[2022-03-18] MEDS: cefTRIAXone 1,000 MG in sodium chloride 0.9% (plus) 50 ML 100 MG IV (20:40)
[2022-03-18] MEDS: insulin glargine 100 units/1 mL 30 UNIT SUBCUT (20:40)
[2022-03-19] VITALS (92 sets, daily range): BP systolic 101–199; BP diastolic 47–124; PULSE 80–140; RESP 11–36; TEMP 36.5–36.9; O2SAT 84–99
[2022-03-19 02:57] LABS: Basophils % 0.1 %; Hematocrit 34.4 % (42.0-52.0); Hemoglobin 10.4 g/dL (11.7-16.6); Lymphocytes # 0.5 10^3/uL (0.8-4.8); Lymphocytes % 5.4 %; Mean Corpuscular HGB Conc 30.2 g/dL (30.0-36.0); Mean Corpuscular Hemoglobin 28.8 pg (28.0-34.0); Mean Corpuscular Volume 95.3 fl (80-94); Mean Platelet Volume 10.6 fL (7.4-10.4); Monocytes # 0.7 10^3/uL (0.2-0.9); Monocytes % 7.4 %; Neutrophils # 7.99 10^3/uL (1.8-7.7); Neutrophils % 86.5 %; Nucleated Red Blood Cells % 0 %; Platelet Count 59 10^3/cmm (130-400); Red Blood Count 3.61 10^6/uL (4.1-5.3); Red Cell Distribution Width 15.6 % (12.1-15.1); White Blood Count 9.2 10^3/uL (4.0-10.0)
[2022-03-19] MEDS: levalbuterol 0.63 mg/3 mL Neb INHALATION ×4 (03:05→20:10)
[2022-03-19] MEDS: ipratropium 0.5 mg/2.5 mL Neb INHALATION ×4 (03:05→20:10)
[2022-03-19 03:14] LABS: Vancomycin Random 7.5 ug/mL (20.0-40.0)
[2022-03-19 03:22] LABS: Alanine Aminotransferase 32 U/L (0-41); Albumin Level 3.8 g/dL (3.5-5.2); Alkaline Phosphatase 29 IU/L (40-130); Anion Gap 17.7 (5-19); Aspartate Amino Transferase 14 U/L (0-40); Calcium 9.5 mg/dL (8.5-10.5); Carbon Dioxide 23 mmol/L (22-29); Chloride 101 mmol/L (98-107); Glomerular Filtration Rate 22.9 mL/min (90-130); Glucose 212 mg/dL (65-115); NT Pro B Type Natriuretic Pept 2572 pg/mL (0-125); Osmolality Calculated 319 mOsm/kg (285-295); Potassium 4.7 mmol/L (3.5-5.1); Sodium 137 mmol/L (136-145); Total Bilirubin 0.8 mg/dL (0.15-1.2); Total Protein 5.8 g/dL (6.6-8.7)
[2022-03-19 03:23] LABS: Blood Urea Nitrogen 92 mg/dL (8-23)
[2022-03-19] MEDS: vancomycin 1,250 MG/250 ML PIGGYBACK 250 MG IV (06:07)
[2022-03-19 07:12] LABS: Glucose Point of Care 146 mg/dL (70-110)
[2022-03-19] MEDS: benzonatate 100 mg Capsule PO ×3 (08:04→20:53)
[2022-03-19] MEDS: sodium bicarbonate 650 mg Tablet PO (08:04)
[2022-03-19] MEDS: escitalopram 10 mg Tablet 5 MG PO (08:04)
[2022-03-19] MEDS: dilTIAZem 30 mg Tablet PO ×2 (08:05→09:45)
[2022-03-19] MEDS: amiodarone 200 mg Tablet PO ×2 (08:06→20:53)
[2022-03-19] MEDS: fluticasone nasal spray 16gm Btl 2 SPRAY INTRANASAL (08:06)
[2022-03-19] MEDS: levETIRAcetam 500 mg Tablet PO ×2 (08:06→17:02)
[2022-03-19] MEDS: insulin lispro 100 unit/1 mL SUBCUT ×4 (08:06→20:53)
[2022-03-19] MEDS: predniSONE 20 mg Tablet 40 MG PO (08:06)
[2022-03-19] MEDS: budesonide 0.5 mg/2 mL Neb INHALATION ×2 (08:56→20:10)
[2022-03-19] MEDS: cetylpyridinium Lozenge 1 EACH MUCOUS MEM ×2 (09:07→17:01)
--- NOTE | 2022-03-19 09:14 | PC.SOCIAL ---
IMM update IMM updated with patient. Copy Pg 2 provided. Initialled, dated, timed, and placed in chart.
[2022-03-19] MEDS: ferrous sulfate EC 325 mg Tablet PO (09:45)
[2022-03-19] MEDS: pantoprazole DR 40 mg Tablet PO (09:46)
[2022-03-19] MEDS: tamsulosin 0.4 mg Capsule PO ×2 (09:46→20:53)
[2022-03-19] MEDS: dilTIAZem 5 mg/mL SDV 5 mL 10 MG IVP (10:52)
[2022-03-19 10:59] LABS: Glucose Point of Care 348 mg/dL (70-110)
--- NOTE | 2022-03-19 11:05 | P.PN_ITS ---
Subjective Subjective: No acute events overnight. Patient lying comfortably in bed. Today morning on examination down to 5 L oxygen with nasal cannula saturating 92%. He is resting in bed. Waking up to verbal cue. Denies any nausea, vomiting, headache. Documented urine output of 1700 last night. Heart rate running in low 100s. Otherwise hemodynamically stable. Vitals/I&O/Wt Last Vital Signs Temp 97.7 F 03/19/22 04:00 Pulse 108 H 03/19/22 09:00 Resp 16 03/19/22 09:00 BP 159/96 03/19/22 08:00 Pulse Ox 96 03/19/22 09:00 03/18/22 03/19/22 03/19/22 22:59 06:59 14:59 Intake Total 700 / 1270.2 450 / 1720.2 490 / 490 Output Total 2900 / 4450 1200 / 5650 Balance -2200 / -3179.8 -750 / -3929.8 490 / 490 Weight last 48 hrs Weight 102.087 kg Weight 105.007 kg Physical Exam Narrative: General: No acute distress, AO x3 HEENT: PERRLA, pupils bilaterally equal and reactive Chest: Bilateral bronchial breath sounds, coarse and fine crackles present all over the lung wray, good equal air entry bilaterally. 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 Urinary Catheter Management: Maciel: Cath Placed During This Visit: yes Reason for Continuing Indwelling Catheter: Accurate Measurement of Urinary Output in Critically Ill Patients Urinary Catheter Date of Insertion: 03/17/22 Urinary Catheter Time of Insertion: 18:30 Data : 03/19/22 02:45 03/19/22 02:45 Micro: Microbiology 03/18/22 10:53 Blood Culture - Preliminary Blood SPECIMEN COLLECTED 03/18/22 10:50 Blood Culture - Preliminary Blood SPECIMEN COLLECTED A&P Assessment and plan (1) Acute respiratory failure with hypoxia: Status: Acute (2) Congestive heart failure with preserved left ventricular function, NYHA class 1: Status: Acute (3) Pneumonia: Status: Acute (4) COPD (chronic obstructive pulmonary disease): Status: Acute (5) Atrial fibrillation with slow ventricular response: Status: Acute (6) New onset atrial fibrillation: Status: Acute (7) Acute kidney injury superimposed on CKD: Status: Acute (8) Diabetes mellitus: Status: Acute Qualifiers: Diabetes mellitus type: type 2 Diabetes mellitus mcc insulin use: with mcc use Diabetes mellitus complication status: with kidney complications Diabetes mellitus complication detail: with chronic kidney disease Chronic kidney disease stage: stage 3 (moderate) Chronic kidney disease stage 3 subtype: stage 3b (GFR 30-44) Qualified Code(s): E11.21 - Type 2 diabetes mellitus with diabetic nephropathy; N18.32 - Chronic kidney disease, stage 3b; 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 Repeat CT chest. Sputum culture positive for Klebsiella. Same Klebsiella present in urine culture. Repeat blood culture. MRSA swab negative. Urine Legionella, bacterial antigen, flu swab, COVID-19 antigen negative. Continue with IV ceftriaxone as per sensitivities. For now start patient on vancomycin. Follow Vanco random levels daily. For congestive heart failure: Recent echo done earlier this month shows an EF 55 to 60% without regional wall motion abnormality. IV Lasix 40 mg once. Will dose daily. Target 2 L negative. Strict input output charting, daily weights. Fluid restriction up to 1500 cc. COPD exacerberation: Ipratropium, Xopenex every 6 hour, Budesonide BID Prednisone 40 mg oral daily. We will do a short course of on 5 days. Atrial fibrillation: Slow ventricular response: Seen on telemetry yesterday. Prior to that heart rate has been stable. Hold off on Cardizem and metoprolol. Continue with home dose of amiodarone. Will reinitiate Cardizem at a lower dose of 30 mg 4 times daily. Uptitrate keeping heart rate less than 100. For now c/w home meds. C/w home dose of eliquis. Hemoptysis: Secondary to bronchitis versus congestive heart failure Hb stable. No active signs. Cepachol PRN. UTI: No active symptoms. Urine culture growing Klebsiella. Ceftriaxone will cover as well. CKD: PRESTON on CKD. Baseline creatinine 2.5-2.9. Also seen 3.2 earlier this year. Most likely cardiorenal syndrome. Check urine lites, urine analysis, urine eosinophils, urine creatinine. Medical reconciliation done for nephrotoxic drugs. C/w other chronic meds. FC Eliquis will suffice for DVT PPx. Protnix for PUD PPX. Plan for day: Increase dose of Cardizem to 60 mg every 6 hourly. Give 1 dose of IV Cardizem push. Monitor heart rate. Target heart rate between 80 to 100 bpm. Monitor kidney functions. Monitor urine output during the day and plan for IV Lasix accordingly. Wean off oxygen keeping saturation over 88%. Out of bed to chair. Physical therapy evaluation tomorrow. Follow-up swallow evaluation and modified barium swallow. 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 [facility] Diagnoses Acute respiratory failure with hypoxia J96.01 Congestive heart failure with preserved left ventricular function, NYHA class 1 I50.30 Pneumonia J18.9 COPD (chronic obstructive pulmonary disease) J44.9 Atrial fibrillation with slow ventricular response I48.91 New onset atrial fibrillation I48.91 Acute kidney injury superimposed on CKD N17.9; N18.9 Diabetes mellitus E11.21; N18.32; Z79.4 Diabetes mellitus type: type 2 Diabetes mellitus 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
[2022-03-19] MEDS: dilTIAZem 60 mg Tablet PO ×2 (12:02→19:09)
[2022-03-19] MEDS: atorvastatin 40 mg Tablet 80 MG PO (17:02)
[2022-03-19 17:12] LABS: Glucose Point of Care 147 mg/dL (70-110)
[2022-03-19] MEDS: cefTRIAXone 1,000 MG in sodium chloride 0.9% (plus) 50 ML 100 MG IV (19:09)
--- NOTE | 2022-03-19 20:36 | PC.NURSE ---
Spoke with the hospitalist director prison, Dr. May. Informed him of patient having a platelet count of [address] coughing up blood[address] May decided to hold tonight dose of Eliquis.
[2022-03-19 20:49] LABS: Glucose Point of Care 267 mg/dL (70-110)
[2022-03-19] MEDS: insulin glargine 100 units/1 mL 30 UNIT SUBCUT (20:53)
[2022-03-20] VITALS (78 sets, daily range): BP systolic 112–185; BP diastolic 42–112; PULSE 79–116; RESP 11–32; TEMP 36.7–37.1; O2SAT 84–99
[2022-03-20] MEDS: dilTIAZem 60 mg Tablet PO ×4 (01:25→19:26)
[2022-03-20] MEDS: ipratropium 0.5 mg/2.5 mL Neb INHALATION ×4 (02:54→20:11)
[2022-03-20] MEDS: levalbuterol 0.63 mg/3 mL Neb INHALATION ×4 (02:55→20:11)
[2022-03-20 05:42] LABS: Basophils % 0.1 %; Eosinophils % 0.3 %; Hematocrit 33.5 % (42.0-52.0); Hemoglobin 10.4 g/dL (11.7-16.6); Lymphocytes % 9.9 %; Mean Corpuscular Hemoglobin 29.1 pg (28.0-34.0); Mean Corpuscular Volume 93.6 fl (80-94); Mean Platelet Volume 11.1 fL (7.4-10.4); Monocytes # 0.7 10^3/uL (0.2-0.9); Neutrophils # 8.16 10^3/uL (1.8-7.7); Neutrophils % 81.8 %; Nucleated Red Blood Cells % 0.2 %; Platelet Count 73 10^3/cmm (130-400); Red Blood Count 3.58 10^6/uL (4.1-5.3); Red Cell Distribution Width 15.6 % (12.1-15.1)
[2022-03-20 05:59] LABS: Alanine Aminotransferase 30 U/L (0-41); Albumin Level 3.5 g/dL (3.5-5.2); Alkaline Phosphatase 26 IU/L (40-130); Anion Gap 15.8 (5-19); Aspartate Amino Transferase 15 U/L (0-40); Blood Urea Nitrogen 67 mg/dL (8-23); Calcium 9.1 mg/dL (8.5-10.5); Carbon Dioxide 24 mmol/L (22-29); Chloride 106 mmol/L (98-107); Glomerular Filtration Rate 33.8 mL/min (90-130); Glucose 159 mg/dL (65-115); Osmolality Calculated 315 mOsm/kg (285-295); Potassium 4.8 mmol/L (3.5-5.1); Sodium 141 mmol/L (136-145); Total Protein 5.5 g/dL (6.6-8.7)
--- NOTE | 2022-03-20 06:00 | XR_ITS ---
WS: [id number] XR chest 1V portable [id number] REASON FOR EXAM: chf FINDINGS: Right jugular central venous line with the tip in the superior vena cava at the level of the aortic a rch. The heart is at the upper limits of normal in size. The mediastinum is unremarkable. Calcified granulomatous disease in both hemithoraces. Compared to the examination of 03/18/2022 interstitial and groundglass opacities in both lungs are reso lving with minimal residual. No new findings. XR/XR chest 1V portable 00007 IMPRESSION: Improvement in the previously demonstrated lung opacities. Presumably these fin dings were at least in part due to pulmonary edema.
[2022-03-20] MEDS: amiodarone 200 mg Tablet PO ×2 (07:01→19:26)
[2022-03-20 07:09] LABS: Glucose Point of Care 171 mg/dL (70-110)
[2022-03-20] MEDS: predniSONE 20 mg Tablet 40 MG PO (08:00)
[2022-03-20] MEDS: escitalopram 10 mg Tablet 5 MG PO (08:00)
[2022-03-20] MEDS: benzonatate 100 mg Capsule PO ×3 (08:00→20:43)
[2022-03-20] MEDS: levETIRAcetam 500 mg Tablet PO ×2 (08:01→17:11)
[2022-03-20] MEDS: insulin lispro 100 unit/1 mL SUBCUT ×4 (08:01→20:43)
[2022-03-20] MEDS: fluticasone nasal spray 16gm Btl 2 SPRAY INTRANASAL (08:01)
[2022-03-20] MEDS: budesonide 0.5 mg/2 mL Neb INHALATION ×2 (08:11→20:11)
[2022-03-20] MEDS: cetylpyridinium Lozenge 1 EACH MUCOUS MEM (08:49)
--- NOTE | 2022-03-20 10:04 | FL_ITS ---
WS: [id number] FL barium swallow modifd 22622 REASON FOR EXAM: Oropharyngeal dysphagia FLUOROSCOPY TIME: 3min [id number] # OF SPOT FILMS: 0 FINDINGS: The swallowing of barium of varying consistencies, in the sitting upright position was performed unde r fluoroscopic guidance with cine fluoroscopy recorded for evaluation by the speech therapy departmen t. No aspiration was identified. Detailed analysis and report will be rendered by the speech therapy department. FL/FL barium swallow modifd [id number] IMPRESSION: Barium swallow as above.
--- NOTE | 2022-03-20 10:37 | PC.CHAP ---
Pastoral Care Encounter/Spiritual Assessment Type of Contact [] Declined biotechnologist visit [] Patient/Family/Request visit [] Outpatient visit [] Follow-up visit [] Physician referral [] Code/Alert [x] Routine visit [] Staff referral [] Actively dying [] Patient sleeping [] Family support [] [] Out of room [] Palliative care [] [] Receiving care in room [] Pre-surgical visit [] Trauma [] Long length of stay [x] ICU visit [] Other: Relational/Emotional Strength [] Patient feels connected with others/family/visitors/staff [] Distress [] Loneliness/isolation [] Abandonment Spirituality of Patient [] Person of [place] [] Attends Restorationist of their [place] [] Believes in Prayer [] Reads Bible or Restorationist materials [] There are Spiritual issues to be addressed Associate Principal Interventions [x] Prayer [] Active listening [] Non-anxious presence [] Spiritual/emotional support [] Crisis/trauma care [] Spiritual counseling [] Bereavement support [] Provided bereavement packet [] Provided Bible/devotional materials [] Provided toy/stuffed animal, coloring book to patient or family member [] Provided Communion [] Anointing/[place] [] Salvation [x] Completed spiritual assessment [] Other: Impact on Illness or Injury [] Angry [] Fearful [] Anxious [] Often cries [] Exhaustion [] Unable to work [] Unable to attend denominational [] Unable to walk/stand [] Unable to read [] Unable to drive [] Unable to eat/drink [] Unable to sleep [] Unable to be with family [] Patient intubated [] Other: Summary Time spent with patient
--- NOTE | 2022-03-20 10:57 | PC.NURSE ---
Pt platelet count 79 this AM, spoke with caio LEIVA and plavix held per orders. Pt coughing up some small amounts of blood this AM. Central line and winston catheter dc'd. Tolerated well, no issues. Will monitor.
[2022-03-20] MEDS: pantoprazole DR 40 mg Tablet PO (11:05)
[2022-03-20] MEDS: tamsulosin 0.4 mg Capsule PO ×2 (11:05→19:26)
[2022-03-20] MEDS: ferrous sulfate EC 325 mg Tablet PO (11:05)
[2022-03-20 11:11] LABS: Glucose Point of Care 316 mg/dL (70-110)
--- NOTE | 2022-03-20 15:02 | PM.PN ---
Subjective Subjective: Patient was seen and examined this morning was seen resting comfortably in chair, still having hemoptysis H&H has remained stable. Continue to hold Eliquis as well as Plavix for today. Currently saturating well on 3 to 4 L supplemental oxygen. Medications: Medication Review Details: Generic Name Dose Route Start Last Admin Trade Name Freq PRN Reason Stop Dose Admin Acetaminophen 650 mg 03/14/22 19:03 03/17/22 12:28 Acetaminophen 32 5 Mg Tablet PO 650 mg Q6H PRN Administration Mild/Mod Pain Or Temp >/= 101 Albuterol Sulfate 2 puff 03/14/22 19:03 03/17/22 16:16 Albuterol 8 Gm M di INHALATION 2 puff Q4H PRN Administration Shortness Of Veronika th Alprazolam 0.5 mg 03/17/22 15:25 03/17/22 15:44 Alprazolam 0.5 M g Tablet PO 0.5 mg BID PRN Administration ANXIETY Amiodarone HCl 200 mg 03/14/22 20:00 03/20/22 07:01 Amiodarone 200 M g Tablet PO 200 mg Q12H JADEN Administration Atorvastatin Calci um 80 mg 03/15/22 18:00 03/19/22 17:02 Atorvastatin 40 Mg Tablet PO 80 mg QPM JADEN Administration Benzocaine 1 each 03/20/22 08:43 03/20/22 08:49 Cetylpyridinium Lozenge MUCOUS MEM 1 each Q2H PRN Administration SORE THROAT Benzonatate 100 mg 03/15/22 15:00 03/20/22 08:00 Benzonatate 100 Mg Capsule PO 100 mg TID JADEN Administration Budesonide 0.5 mg 03/17/22 20:00 03/20/22 08:11 Budesonide 0.5 M g/2 Ml Neb INHALATION 0.5 mg BID.RESPIRATORY S CH Administration Clopidogrel Bisulf ate 75 mg 03/15/22 11:00 03/20/22 08:47 Clopidogrel 75 M g Tablet PO Not Given DAILY@1100 [facility] Escitalopram Oxala te 5 mg 03/15/22 09:00 03/20/22 08:00 Escitalopram 10 Mg Tablet PO 5 mg DAILY JADEN Administration Ferrous Sulfate 325 mg 03/15/22 11:00 03/20/22 11:05 Ferrous Sulfate Ec 325 Mg Tablet PO 325 mg DAILY@1100 JADEN Administration Fluticasone Propio scott 2 spray 03/18/22 10:05 03/20/22 08:01 Fluticasone [place] 16gm Btl INTRANASAL 2 applic DAILY JADEN Administration Ceftriaxone Sodium 1,000 mg/ 50 mls @ 100 mls/ hr 03/16/22 19:30 03/19/22 19:40 Sodium Chloride IV Infused Q24H JADEN Infusion Protocol Insulin Glargine 30 unit 03/15/22 21:00 03/19/22 20:53 Insulin Glargine 100 Units/1 Ml SUBCUT 30 unit BEDTIME JADEN Administration Insulin Human Lisp ro 0 unit 03/14/22 21:00 03/20/22 11:26 Insulin Lispro 1 00 Unit/1 Ml SUBCUT 14 unit WM&BEDTIME JADEN Administration Protocol Ipratropium Bromid e 0.5 mg 03/19/22 21:00 03/20/22 14:23 Ipratropium 0.5 Mg/2.5 Ml Neb INHALATION 0.5 mg Q6H.RESPIRATORY S CH Administration Levalbuterol HCl 0.63 mg 03/18/22 21:00 03/20/22 14:23 Levalbuterol 0.6 3 Mg/3 Ml Neb INHALATION 0.63 mg Q6H.RESPIRATORY S CH Administration Levetiracetam 500 mg 03/15/22 09:00 03/20/22 08:01 Levetiracetam 50 0 Mg Tablet PO 500 mg BID JADEN Administration Morphine Sulfate 1 mg 03/14/22 19:03 03/17/22 14:30 Morphine 4 Mg/Ml Sdv 1 Ml IVP 1 mg Q4H PRN Administration SEVERE PAIN Non-Formulary Medi cation 400 mg 03/15/22 09:00 03/20/22 08:03 Pentoxifylline PO Not Given BID [facility] Pantoprazole Sodiu m 40 mg 03/15/22 11:00 03/20/22 11:[address] 40 Mg Tablet PO 40 mg DAILY@11 JADEN Administration Prednisone 40 mg 03/19/22 09:00 03/20/22 08:00 Prednisone 20 Mg Tablet PO 03/24/22 08:59 40 mg DAILY JADEN Administration Tamsulosin HCl 0.4 mg 03/14/22 20:00 03/20/22 11:05 Tamsulosin 0.4 M g Capsule PO 0.4 mg BID@1100,1999 JADEN Administration Vitals/I&O/Wt Last Vital Signs Temp 98.1 F 03/20/22 08:00 Pulse 92 03/20/22 14:00 Resp 14 03/20/22 10:15 BP 131/76 03/20/22 12:00 Pulse Ox 94 03/20/22 11:45 03/20/22 03/20/22 03/20/22 06:59 14:59 22:59 Intake Total 720 / 720 Output Total 1300 / 3050 1025 / 1025 Balance -1300 / -1490 -305 / -305 Weight last 48 hrs Weight 100.726 kg Weight 102.087 kg Physical Exam Const: COMMON NORMALS: patient oriented x3 HENMT: COMMON NORMALS: normocephalic and atraumatic HEAD & SCALP: normocephalic and atraumatic Chest: COMMONS NORMALS: normal inspection of the chest and normal palpation of entire chest wall CHEST: Yes Symmetrical chest wall rise Resp: COMMON NORMALS: normal respiratory effort, No retractions, No use of accessory muscles and clear to auscultation bilaterally EFFORT & INSPECTION: Yes symmetric chest movement AUSCULTATION: clear to auscultation bilaterally Cardio: COMMON NORMALS: regular rate, regular rhythm, S1 normal heart sound present, S2 normal heart sound present, No gallops present (Cardio), No murmurs present (Cardio), No rub (Cardio) and Peripheral pulses 2+ throughout RATE: regular rate RHYTHM: regular rhythm HEART SOUNDS: S1 normal heart sound present and S2 normal heart sound present PERIPHERAL PULSES: Peripheral pulses 2+ throughout GI: COMMON NORMALS: Normal to inspection, nondistended, normoactive bowel sounds present, Soft to palpation, non-tender, No hepatosplenomegaly present and no masses AUSCULTATION: Yes normoactive bowel sounds PALPATION: Yes Soft to palpation and Yes No hepatosplenomegaly present RECTAL EXAM: Yes deferred Extremity: COMMON NORMALS: no clubbing, cyanosis or edema and no pedal edema Neuro: COMMON NORMALS: patient oriented x3 Urinary Catheter Management: Maciel: Cath Placed During This Visit: yes, but has since been removed by the nurse Reason for Continuing Indwelling Catheter: Decision to DC Catheter Urinary Catheter Date of Insertion: 03/17/22 Urinary Catheter Time of Insertion: 18:30 Date Urinary Catheter Removed: 03/20/22 Time Urinary Catheter Discontinued: 08:00 Data : 03/20/22 04:28 03/20/22 04:28 Micro: Microbiology 03/18/22 10:53 Blood Culture - Preliminary Blood NEGATIVE TO DATE 03/18/22 10:50 Blood Culture - Preliminary Blood NEGATIVE TO DATE A&P Assessment and plan (1) Acute respiratory failure with hypoxia: Status: Acute (2) Congestive heart failure with preserved left ventricular function, NYHA class 1: Status: Acute (3) Pneumonia: Status: Acute (4) COPD (chronic obstructive pulmonary disease): Status: Acute (5) Atrial fibrillation with slow ventricular response: Status: Acute (6) New onset atrial fibrillation: Status: Acute (7) Acute kidney injury superimposed on CKD: Status: Acute (8) Diabetes mellitus: Status: Acute Qualifiers: Chronic kidney disease stage: stage 3 (moderate) Chronic kidney disease stage 3 subtype: stage 3b (GFR 30-44) Diabetes mellitus complication detail: with chronic kidney disease Diabetes mellitus complication status: with kidney complications Diabetes mellitus terminal manager insulin use: with fpc use Diabetes mellitus type: type 2 Qualified Code(s): E11.21 - Type 2 diabetes mellitus with diabetic nephropathy; N18.32 - Chronic kidney disease, stage 3b; 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 Repeat CT chest. Sputum culture positive for Klebsiella. Same Klebsiella present in urine culture. Repeat blood culture. MRSA swab negative. Urine Legionella, bacterial antigen, flu swab, COVID-19 antigen negative. Vancomycin has been discontinued Continue with IV ceftriaxone. Will discharge on p.o. levofloxacin to complete total 10-day course HFpEF : Currently compensated Recent echo done earlier this month shows an EF 55 to 60% without regional wall motion abnormality. Strict input output charting, daily weights. Hold off on Lasix Fluid restriction up to 1500 cc. COPD exacerberation: Ipratropium, Xopenex every 6 hour, Budesonide BID Prednisone 40 mg oral daily. We will do a short course of on 5 days. Atrial fibrillation: Slow ventricular response: Seen on telemetry yesterday. Currently on Cardizem to 240MG PO daily, as well as amiodarone 200 mg p.o. twice daily. Will resume Eliquis Hemoptysis: Secondary to bronchitis versus congestive heart failure Hb stable. No active signs. Cepachol PRN. Chronic thrombocytopenia: Continue to monitor platelet count Hold Plavix and Eliquis for now UTI: No active symptoms. Urine culture growing Klebsiella. Ceftriaxone will cover as well. CKD: PRESTON on CKD. Baseline creatinine 2.5-2.9. Also seen 3.2 earlier this year. Most likely cardiorenal syndrome. Check urine lites, urine analysis, urine eosinophils, urine creatinine. Medical reconciliation done for nephrotoxic drugs. C/w other chronic meds. FC Eliquis will suffice for DVT PPx. Protnix for PUD PPX. Attestations Medical Necessity Statement*: Patient needs to be in hospital for management of pneumonia Time Spent in Patient Care: Greater than 35 minutes (>than 50% of time spent in counselling and/or direct pt care on unit). 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 [facility] Fwd Exam Detailed Diagnoses Acute respiratory failure with hypoxia J96.01 Congestive heart failure with preserved left ventricular function, NYHA class 1 I50.30 Pneumonia J18.9 COPD (chronic obstructive pulmonary disease) J44.9 Atrial fibrillation with slow ventricular response I48.91 New onset atrial fibrillation I48.91 Acute kidney injury superimposed on CKD N17.9; N18.9 Diabetes mellitus E11.21; N18.32; Z79.4 Chronic kidney disease stage: stage 3 (moderate) Chronic kidney disease stage 3 subtype: stage 3b (GFR 30-44) Diabetes mellitus complication detail: with chronic kidney disease Diabetes mellitus complication status: with kidney complications Diabetes mellitus fpc insulin use: with fpc use Diabetes mellitus type: type 2 Hemoptysis R04.2
[2022-03-20] MEDS: atorvastatin 40 mg Tablet 80 MG PO (17:11)
[2022-03-20 17:16] LABS: Glucose Point of Care 190 mg/dL (70-110)
--- NOTE | 2022-03-20 18:12 | PC.NURSE ---
Pt up to chair several times today, walked with therapy. Has been on RA all day. Tolerated well.
[2022-03-20] MEDS: cefTRIAXone 1,000 MG in sodium chloride 0.9% (plus) 50 ML 100 MG IV (19:26)
[2022-03-20 20:35] LABS: Glucose Point of Care 203 mg/dL (70-110)
[2022-03-20] MEDS: insulin glargine 100 units/1 mL 30 UNIT SUBCUT (20:44)
[2022-03-21] VITALS (26 sets, daily range): BP systolic 124–171; BP diastolic 70–116; PULSE 79–105; RESP 12–24; TEMP 35.9–36.8; O2SAT 87–96; BMI 31.1
--- NOTE | 2022-03-21 00:15 | PC.NURSE ---
IV Access/Ceftriaxone Upon doing IV maintenance at 1930, IV found to be infiltrated. Ceftriaxone paused, IV removed, catheter tip intact, and patient tolerated well. No IV access left for patient. IV access attempted to be obtained by 5 nurses with no success. Right AC forearm 18 gauge obtained by IV ultrasound on first attempt by SUSIE Sanchez at 0015. Ceftriaxone resumed and pharmacy called to re-time next scheduled dose. See MAR for details.
[2022-03-21] MEDS: acetaminophen 325 mg Tablet 650 MG PO (01:35)
--- NOTE | 2022-03-21 02:37 | PC.NURSE ---
Metoprolol Patient's BP running 146-169 systolic, 70-101 diastolic, see vitals for details. Dr. Martínez contacted and notified; telephone order received for 25 mg metoprolol tartrate PO one time. Medication administered per JAN.
[2022-03-21] MEDS: metoprolol tartrate 25 mg Tablet PO (02:49)
[2022-03-21] MEDS: levalbuterol 0.63 mg/3 mL Neb INHALATION ×2 (03:11→08:03)
[2022-03-21] MEDS: ipratropium 0.5 mg/2.5 mL Neb INHALATION ×2 (03:11→08:03)
[2022-03-21 04:40] LABS: Basophils % 0.1 %; Eosinophils # 0.1 10^3/uL (0.0-0.8); Eosinophils % 0.7 %; Hematocrit 34.8 % (42.0-52.0); Hemoglobin 10.8 g/dL (11.7-16.6); Lymphocytes # 1.2 10^3/uL (0.8-4.8); Lymphocytes % 11.5 %; Mean Corpuscular Hemoglobin 28.8 pg (28.0-34.0); Mean Corpuscular Volume 92.8 fl (80-94); Mean Platelet Volume 11.7 fL (7.4-10.4); Monocytes # 0.8 10^3/uL (0.2-0.9); Monocytes % 7.8 %; Neutrophils # 8.43 10^3/uL (1.8-7.7); Neutrophils % 79.1 %; Nucleated Red Blood Cells % 0 %; Platelet Count 68 10^3/cmm (130-400); Red Blood Count 3.75 10^6/uL (4.1-5.3); Red Cell Distribution Width 15.6 % (12.1-15.1); White Blood Count 10.7 10^3/uL (4.0-10.0)
[2022-03-21 05:05] LABS: Alanine Aminotransferase 29 U/L (0-41); Albumin Level 3.5 g/dL (3.5-5.2); Alkaline Phosphatase 27 IU/L (40-130); Anion Gap 15.7 (5-19); Aspartate Amino Transferase 18 U/L (0-40); Blood Urea Nitrogen 61 mg/dL (8-23); Calcium 9.3 mg/dL (8.5-10.5); Carbon Dioxide 22 mmol/L (22-29); Chloride 104 mmol/L (98-107); Globulin 2.6 g/dL (1.3-4.6); Glomerular Filtration Rate 38.2 mL/min (90-130); Glucose 152 mg/dL (65-115); Osmolality Calculated 304 mOsm/kg (285-295); Potassium 4.7 mmol/L (3.5-5.1); Sodium 137 mmol/L (136-145); Total Bilirubin 0.9 mg/dL (0.15-1.2); Total Protein 6.1 g/dL (6.6-8.7)
[2022-03-21] MEDS: budesonide 0.5 mg/2 mL Neb INHALATION (08:03)
[2022-03-21 08:04] LABS: Glucose Point of Care 113 mg/dL (70-110)
[2022-03-21] MEDS: benzonatate 100 mg Capsule PO (08:46)
[2022-03-21] MEDS: levETIRAcetam 500 mg Tablet PO (08:46)
[2022-03-21] MEDS: escitalopram 10 mg Tablet 5 MG PO (08:46)
[2022-03-21] MEDS: amiodarone 200 mg Tablet PO (08:47)
[2022-03-21] MEDS: apixaban 5 mg Tablet PO (08:47)
[2022-03-21] MEDS: predniSONE 20 mg Tablet 40 MG PO (08:47)
[2022-03-21] MEDS: dilTIAZem ER (24HR) 240 mg Capsule PO (08:48)
[2022-03-21] MEDS: fluticasone nasal spray 16gm Btl 2 SPRAY INTRANASAL (08:49)
[2022-03-21] MEDS: pantoprazole DR 40 mg Tablet PO (10:48)
[2022-03-21] MEDS: ferrous sulfate EC 325 mg Tablet PO (10:48)
[2022-03-21] MEDS: clopidogrel 75 mg Tablet PO (10:49)
[2022-03-21] MEDS: tamsulosin 0.4 mg Capsule PO (10:49)
--- NOTE | 2022-03-21 11:53 | P.DS_ITS ---
Discharge Providers Date of Admission: 03/14/22 17:17 Date of Discharge: March 21, 2022 Attending Provider at Admission: Sujit Zhang MD Attending Provider at Discharge: Jian Villalta MD Primary Care Provider: Fer Musa DO Diagnoses at Discharge Discharge Diagnosis (1) Acute respiratory failure with hypoxia: Status: Acute (2) Congestive heart failure with preserved left ventricular function, NYHA class 1: Status: Acute (3) Pneumonia: Status: Acute (4) COPD (chronic obstructive pulmonary disease): Status: Acute Permanent problem details: moderate obstructive ventilatory defect, significant response to bronchodilators. Lung volumes suggestive of mild air trapping. Mild reduction in gas transfer. (5) Atrial fibrillation with slow ventricular response: Status: Acute (6) New onset atrial fibrillation: Status: Acute (7) Acute kidney injury superimposed on CKD: Status: Acute (8) Diabetes mellitus: Status: Acute Qualifiers: Chronic kidney disease stage: stage 3 (moderate) Chronic kidney disease stage 3 subtype: stage 3b (GFR 30-44) Diabetes mellitus complication detail: with chronic kidney disease Diabetes mellitus complication status: with kidney complications Diabetes mellitus long term care administrator insulin use: with shelter use Diabetes mellitus type: type 2 Qualified Code(s): E11.21 - Type 2 diabetes mellitus with diabetic nephropathy; N18.32 - Chronic kidney disease, stage 3b; Z79.4 - detention (current) use of insulin (9) Hemoptysis: Status: Acute Reason for Visit Reason for Visit: HYPOTENSION Hospital Course Hospital Course 66-year-old male with past medical history of hypertension diabetes COPD, coronary artery disease,HFpEF, CKD stage III, A. fib on chronic anticoagulation, chronic thrombocytopenia, was admitted with chief complaint of, shortness of breath, likely secondary to decompensated heart failure and pneumonia.Had a complicated hospital course, during which, he went into PRESTON on worsening CKD, likely secondary to overdiuresis, hyperkalemia, documented episode of bradycardia, with hypotension, which has been attributed to, Cardizem and metoprolol, but I am unsure how much PRESTON with worsening BUN and serum creatinine, hyperkalemia, contributed to the event, patient was transiently kept on Levophed as well as dopamine in the ICU, required heated high flow and BiPAP, as there was concern for florid pulmonary edema,careful diuresis was done, Later Cardizem was resumed, his initial home Cardizem dose is 360, currently he is being discharged on Cardizem CD 240 p.o. daily, metoprolol tartrate 12.5 mg p.o. twice daily has been continued, Eliquis has been continued on discharge.2D echo done during the hospital stay: Showed normal LV size and systolic function and wall thickness with no RWMA, LVEF of 55 to 60%. Patient was euvolemic and compensated with regards to his heart failure the time of discharge, Lasix p.o. has been held for now. For his PRESTON on CKD stage III BUN and serum creatinine was improving at the time of discharge, has been asked to follow-up with his primary care physician in 1 week with repeat BMP. Losartan has also been held on discharge in light of PRESTON and improving kidney function. For his heart failure with preservation fraction Lasix p.o. has been held on discharge for now as the patient is euvolemic compensated and dry kidney function is currently improving.He has continued to make good urine.For pneumonia he was kept on broad-spectrum antibiotic, sputum culture has grown Klebsiella, he is being discharged on p.o. levofloxacin to complete antibiotic course. Patient was also having scant hemoptysis during the hospital stay, likely secondary to pneumonia, H&H was stable, Plavix and Eliquis was held for some time, but has been resumed on discharge.Patient was also managed for UTI urine culture grew Klebsiella, appropriately covered with antibiotics. He has been advised to follow cardiology as well as primary care physician as an outpatient, going forward he may need event monitor for monitoring of possible A. fib with slow ventricular response. Physical Exam Const: COMMON NORMALS: patient oriented x3 HENMT: COMMON NORMALS: normocephalic and atraumatic HEAD & SCALP: normocephalic and atraumatic Chest: COMMONS NORMALS: normal inspection of the chest and normal palpation of entire chest wall CHEST: Yes Symmetrical chest wall rise Resp: COMMON NORMALS: normal respiratory effort, No retractions, No use of accessory muscles and clear to auscultation bilaterally EFFORT & INSPECTION: Yes symmetric chest movement AUSCULTATION: clear to auscultation bilaterally Cardio: COMMON NORMALS: No gallops present (Cardio), No murmurs present (Cardio), No rub (Cardio) and Peripheral pulses 2+ throughout PERIPHERAL PULSES: Peripheral pulses 2+ throughout OTHER: Irregularly irregular rhythm, S1-S2 variable intensity GI: COMMON NORMALS: Normal to inspection, nondistended, normoactive bowel sounds present, Soft to palpation, non-tender, No hepatosplenomegaly present and no masses AUSCULTATION: Yes normoactive bowel sounds PALPATION: Yes Soft to palpation and Yes No hepatosplenomegaly present RECTAL EXAM: Yes deferred Extremity: COMMON NORMALS: no clubbing, cyanosis or edema and no pedal edema NARRATIVE EXTREMITY EXAM: Left lower extremity BKA Neuro: COMMON NORMALS: patient oriented x3 Urinary Catheter Management: Maciel: Cath Placed During This Visit: yes, but has since been removed by the nurse Reason for Continuing Indwelling Catheter: Decision to DC Catheter Urinary Catheter Date of Insertion: 03/17/22 Urinary Catheter Time of Insertion: 18:30 Date Urinary Catheter Removed: 03/20/22 Time Urinary Catheter Discontinued: 08:00 Discharge Data Studies Completed and Pending Completed Studies During Hospitalization Category Date Time Status CT chest wo con [id number] Routine Cat Scan 03/18/22 10:[address] chest wo con [id number] Urgent Cat Scan 03/14/22 18:29 Completed [place] barium swallow modifd [id number] Routine Exams 03/20/22 10:04 Completed XR chest 1V portable [id number] QAM Exams 03/20/22 06:00 Completed XR chest 1V portable [id number] Stat Exams 03/14/22 13:58 Completed XR chest 1V portable [id number] Stat Exams 03/17/22 15:25 Completed XR chest 1V portable [id number] Stat Exams 03/18/22 00:22 Completed XR chest 1V portable [id number] Urgent Exams 03/17/22 19:47 Completed Pending at discharge Category Date Time Status Blood Culture Stat Lab 03/18/22 10:53 Results Radiology Impressions Chest CT 03/18/22 10:02 IMPRESSION: 1. [id number] nonspecific bilateral pulmonary opacities most consistent with pneumonia. 2. Severe calcified coronary artery disease. 3. Solitary gallstone within the gallbladder. Chest X-Ray 03/20/22 06:00 IMPRESSION: Improvement in the previously demonstrated lung opacities. Presumably these findings were at least in part due to pulmonary edema. Modified Barium Swallow 03/20/22 10:04 IMPRESSION: Barium swallow as above. Laboratory Results WBC 10.7 10^3/uL (4.0-10.0) H 03/21/22 03:55 RBC 3.75 10^6/uL (4.1-5.3) L 03/21/22 03:55 Hgb 10.8 g/dL (11.7-16.6) L 03/21/22 03:55 Hct 34.8 % (42.0-52.0) L 03/21/22 03:55 MCV 92.8 fl (80-94) 03/21/22 03:55 MCH 28.8 pg (28.0-34.0) 03/21/22 03:55 MCHC 31.0 g/dL (30.0-36.0) 03/21/22 03:55 RDW 15.6 % (12.1-15.1) H 03/21/22 03:55 Plt Count 68 10^3/cmm (130-400) L 03/21/22 03:55 MPV 11.7 fL (7.4-10.4) H 03/21/22 03:55 Neut % (Auto) 79.1 % 03/21/22 03:55 Lymph % (Auto) 11.5 % 03/21/22 03:55 [place] % (Auto) 7.8 % 03/21/22 03:55 Eos % (Auto) 0.7 % 03/21/22 03:55 Baso % (Auto) 0.1 % 03/21/22 03:55 Neut # (Auto) 8.43 10^3/uL (1.8-7.7) H 03/21/22 03:55 Lymph # (Auto) 1.2 10^3/uL (0.8-4.8) 03/21/22 03:55 [place] # (Auto) 0.8 10^3/uL (0.2-0.9) 03/21/22 03:55 Eos # (Auto) 0.1 10^3/uL (0.0-0.8) 03/21/22 03:55 Baso # (Auto) 0.0 10^3/uL (0.0-0.1) 03/21/22 03:55 Nucleated RBC % (auto) 0 % 03/21/22 03:55 Nucleated RBCs # 0.0 /100WBC 03/21/22 03:55 D-Dimer 0.38 ug/mIFEU (0-0.59) 03/17/22 17:37 Specimen Type Arterial 03/17/22 20:08 Sample Site Radial, right 03/17/22 20:08 ABG pH 7.23 (7.35-7.45) L 03/17/22 20:08 ABG pCO2 33.9 mmHg (35-45) L 03/17/22 20:08 ABG pO2 63.6 mmHg (80.0-100.0) L 03/17/22 20:08 ABG HCO3 14.2 mmol/L (22-26) L 03/17/22 20:08 ABG O2 Saturation 87.4 03/17/22 20:08 ABG Base Excess -12.3 mmol/L (-2.0-2.0) L 03/17/22 20:08 Mich Test Pos 03/17/22 20:08 A-a O2 Gradient 41.3 mmHg (5-10) H 03/17/22 20:08 Hematocrit 37.2 % (42-52) L 03/17/22 20:08 Hgb O2 Saturation 85.5 % (95-100) L 03/17/22 20:08 Carboxyhemoglobin 1.3 %THgb (0.4-20.1) 03/17/22 20:08 Methemoglobin 0.8 % (0.4-1.5) 03/17/22 20:08 Total Hemoglobin 12.1 g/dL (14-18) L 03/17/22 20:08 Sodium 134.0 mmol/L (131-143) 03/17/22 20:08 Potassium 6.2 mmol/L (3.5-5.0) H 03/17/22 20:08 Glucose 340.0 mg/dL (70-115) H 03/17/22 20:08 Ionized Calcium 1.3 mmol/L (1.1-1.4) 03/17/22 20:08 O2 Delivery Device Bipap 03/17/22 20:08 O2 Liters/Min 12.0 % 03/17/22 16:39 FiO2 60.0 % 03/17/22 20:08 [employer] ID [email or web address] 03/17/22 20:08 Sodium 137 mmol/L (136-145) 03/21/22 03:55 Potassium 4.7 mmol/L (3.5-5.1) 03/21/22 03:55 Chloride 104 mmol/L (98-107) 03/21/22 03:55 Carbon Dioxide 22 mmol/L (22-29) 03/21/22 03:55 Anion Gap 15.7 (5-19) 03/21/22 03:55 BUN 61 mg/dL (8-23) H 03/21/22 03:55 Creatinine 1.8 mg/dL (0.7-1.2) H 03/21/22 03:55 GFR Calculation 38.2 mL/min (90-130) L 03/21/22 03:55 Glucose 152 mg/dL (65-115) H 03/21/22 03:55 POC Glucose 113 mg/dL (70-110) H 03/21/22 07:58 Estimat Average Glucose 160 03/15/22 05:30 Hemoglobin A1c 7.2 % (4.0-6.0) H 03/15/22 05:30 Calculated Osmolality 304 mOsm/kg (285-295) H 03/21/22 03:55 Calcium 9.3 mg/dL (8.5-10.5) 03/21/22 03:55 Phosphorus 4.9 mg/dL (2.5-4.5) H 03/15/22 05:30 Phosphorus Cancelled 03/15/22 05:30 Magnesium 2.4 mg/dL (1.7-2.3) H 03/15/22 05:30 Magnesium Cancelled 03/15/22 05:30 Iron 99 ug/dL (59-158) 03/14/22 13:40 TIBC 338 mcg/dl 03/14/22 13:40 % Saturation 29.2 % (20-50) 03/14/22 13:40 Unsat Iron Binding 239 ug/dL (112-347) 03/14/22 13:40 Total Bilirubin 0.9 mg/dL (0.15-1.2) 03/21/22 03:55 AST 18 U/L (0-40) 03/21/22 03:55 ALT 29 U/L (0-41) 03/21/22 03:55 Alkaline Phosphatase 27 IU/L (40-130) L 03/21/22 03:55 Troponin T Gen 5 ng/L 46 ng/L (0-15) H 03/18/22 03:30 Troponin T Baseline 53 ng/L (0-15) H 03/14/22 13:40 Troponin T 120 Minute 54.93 ng/L (0-15) H 03/14/22 15:35 Delta Troponin T 1.93 ABS# (0-10) 03/14/22 15:35 NT-Pro-B Natriuret Pep 2572 pg/mL (0-125) H 03/19/22 02:45 Total Protein 6.1 g/dL (6.6-8.7) L 03/21/22 03:55 Albumin 3.5 g/dL (3.5-5.2) 03/21/22 03:55 Globulin 2.6 g/dL (1.3-4.6) 03/21/22 03:55 Triglycerides 143 mg/dL (0-150) 03/15/22 05:30 Triglycerides Cancelled 03/15/22 05:30 Cholesterol 158 mg/dL (0-200) 03/15/22 05:30 Cholesterol Cancelled 03/15/22 05:30 LDL Cholesterol, Calc 87 mg/dL (50-129) 03/15/22 05:30 LDL Cholesterol, Calc Cancelled 03/15/22 05:30 Total VLDL Cholesterol 29 mg/dL (0-30) 03/15/22 05:30 Total VLDL Cholesterol Cancelled 03/15/22 05:30 HDL Cholesterol 42 mg/dL (60-100) L 03/15/22 05:30 HDL Cholesterol Cancelled 03/15/22 05:30 LDL/HDL Ratio Cancelled 03/15/22 05:30 Cholesterol/HDL Ratio 3.76 mg/dL (1.0-5.00) 03/15/22 05:30 Cholesterol/HDL Ratio Cancelled 03/15/22 05:30 Procalcitonin 0.10 ng/mL (0-0.5) 03/18/22 03:30 Urine Color Yellow (Yellow) 03/18/22 12:25 Urine Appearance Clear (CLEAR) 03/18/22 12:25 Urine pH 5 (5-7) 03/18/22 12:25 Ur Specific Enigma 1.015 (1.005-1.030) 03/18/22 12:25 Urine Protein Neg (Negative) 03/18/22 12:25 Urine Glucose (UA) 2+ (Normal) H 03/18/22 12:25 Urine Ketones Negative (Negative) 03/18/22 12:25 Urine Blood Neg (Negative) 03/18/22 12:25 Urine Nitrate Negative (Negative) 03/18/22 12:25 Urine Bilirubin Neg (Negative) 03/18/22 12:25 Urine Urobilinogen Norm mg/dL (Negative) 03/18/22 12:25 Ur Leukocyte Esterase Negative (Negative) 03/18/22 12:25 Urine RBC Rare /hpf (0-2) 03/14/22 17:08 Urine WBC 25-40 /hpf (0-5) H 03/14/22 17:08 Ur Eosinophil Smear 0 (0-0) 03/18/22 12:25 Ur Squamous Epith Cells 0-4 /hpf (0-5) H 03/14/22 17:08 Amorphous Sediment Not Reportable 03/14/22 17:08 Urine Bacteria 3+ /hpf (NONE) H 03/14/22 17:08 Urine Eosinophils No eosinophils seen 03/18/22 12:25 Ur Random Sodium 47 mmol/L 03/18/22 12:25 Ur Random Potassium 20 mmol/L 03/18/22 12:25 Ur Random Chloride 15 mmol/L 03/18/22 12:25 Urine Creatinine 57 mg/dL (39-259) 03/18/22 12:25 Random Vancomycin 7.5 ug/mL (20.0-40.0) L 03/19/22 02:45 Coronavirus 229E (PCR) Not detected (NOT DETECT) 03/14/22 21:42 Influenza Type A Ag Negative (Negative) 03/14/22 19:34 Influenza Type B Ag Negative (Negative) 03/14/22 19:34 SARS-CoV-2 (PCR) Not detected (NOT DETECT) 03/14/22 21:42 Vitals Last Vital Signs Temp 96.6 F L 03/21/22 08:00 Pulse 98 03/21/22 09:30 Resp 23 H 03/21/22 09:30 BP 139/91 03/21/22 09:30 Pulse Ox 94 03/21/22 09:30 Discharge Plan Discharge Patient Disposition: Home Condition: Stable Prescriptions: New diltiazem HCl 240 mg Capsule,Extended Release 24hr 240 mg PO DAILY 30 Days Qty: 30 3RF amiodarone 200 mg tablet 200 mg PO DAILY Qty: 30 3RF levofloxacin 500 mg tablet 500 mg PO Q48H 7 Days Qty: 4 0RF Continued Stiolto Respimat 2.5-2.5 mcg/actuation mist 2 puff inhalation DAILY Qty: 4 3RF metoprolol tartrate 25 mg tablet 12.5 mg PO BID Qty: 60 3RF escitalopram oxalate 10 mg Tablet 5 mg PO DAILY Qty: 30 0RF atorvastatin 80 mg Tablet 80 mg PO QPM 0RF ferrous sulfate 325 mg (65 mg iron) Tablet 325 mg PO DAILY@1100 0RF cholecalciferol (vitamin D3) 2,000 unit Tablet 2,000 unit PO DAILY@1100 0RF pentoxifylline 400 mg tablet extended release 400 mg PO BID 0RF senna 8.6 mg Capsule 8.6 mg PO DAILY PRN (Reason: Constipation) 0RF levetiracetam [Keppra] 500 mg tablet 500 mg PO BID Qty: 60 0RF clopidogrel [Plavix] 75 mg Tablet 75 mg PO DAILY@1100 0RF albuterol sulfate 90 mcg/actuation Hfa Aerosol Inhaler 2 puff INHALATION Q4H PRN (Reason: Shortness Of Breath) 0RF insulin aspart U-100 [Novolog Flexpen U-100 Insulin] 100 unit/mL (3 mL) Insulin Pen 17 unit SUBCUT BEDTIME PRN (Reason: blood sugar) 0RF Lantus Solostar U-100 Insulin 100 unit/mL (3 mL) insulin pen 17 unit SUBCUT BEDTIME 0RF tamsulosin 0.4 mg capsule 0.4 mg PO BID@1100,2000 0RF fluticasone propionate 50 mcg/actuation [place],Suspension 2 spray INTRANASAL DAILY PRN (Reason: Allergy Symptoms) 0RF Eliquis 5 mg Tablet 5 mg PO BID@0900,2100 Qty: 180 0RF omeprazole 40 mg Capsule,Delayed Release(Dr/Ec) 40 mg PO DAILY@11 0RF multivitamin with iron-mineral Tablet 1 tab PO DAILY 0RF ipratropium-albuterol 20-100 mcg/actuation Mist 1 puff INHALATION QID PRN (Reason: breathing) 0RF Rx Instructions: space evenly during waking hours Held losartan 100 mg tablet 50 mg PO DAILY@1100 0RF Hold Instructions: Resume on 04/04/22. furosemide [Lasix] 20 mg tablet 20 mg PO QAM 0RF Hold Instructions: Resume on 03/28/22. Discontinued amlodipine 5 mg tablet 5 mg PO DAILY Qty: 90 3RF diltiazem HCl 360 mg capsule,extended release 24hr 360 mg PO DAILY Qty: 90 0RF amiodarone [Pacerone] 200 mg tablet See Rx Instructions .ROUTE .COMPLEX 0RF Rx Instructions: 200mg (1 tab) twice a day for 2 weeks, then 100mg (0.5 tab) twice a day Discharge Orders: Discharge Order (Routine); Ordered 03/21/22 Ordered By: Jian Villalta Other Ambulatory Orders: Basic Metabolic Panel (Routine) Timeframe: 1 Week Facility: [facility] - Location: Lab - Main Lab Ordered By: Jian Villalta Complete Blood Count w/Auto (Routine) Timeframe: 1 Week Location: Determined by Patient Ordered By: Jian Villalta Referrals: [facility] [Outside] Fer Musa DO [Primary Care Provider] - 1 week Carly Muro MD [Physician] - 2 weeks Discharge Diet: Cardiac and Diabetic Patient Instructions: Diltiazem (By mouth) (Cardizem, Cardizem CD, Cardizem LA, Cardizem SR), Amiodarone (By mouth) (Cordarone, Pacerone), Levofloxacin (By mouth) (Levaquin, Levaquin Leva-dhara), Heart Healthy Diet (DC), Basic Carbohydrate Counting (DC), Opioid Safety Discharge Attestations Time Spent in Discharge Care*: greater than 30 min Status at Discharge: Cognitive status at discharge: cognitively intact , Behavioral status at discharge: cooperative and can be uncooperative , Quality Metrics Clinical Quality Measures [ No reported AMI, CVA or VTE this stay] Coding Level of Care Code Acute Chg FW DC note Diagnoses Acute respiratory failure with hypoxia J96.01 Congestive heart failure with preserved left ventricular function, NYHA class 1 I50.30 Pneumonia J18.9 COPD (chronic obstructive pulmonary disease) J44.9 Atrial fibrillation with slow ventricular response I48.91 New onset atrial fibrillation I48.91 Acute kidney injury superimposed on CKD N17.9; N18.9 Diabetes mellitus E11.21; N18.32; Z79.4 Chronic kidney disease stage: stage 3 (moderate) Chronic kidney disease stage 3 subtype: stage 3b (GFR 30-44) Diabetes mellitus complication detail: with chronic kidney disease Diabetes mellitus complication status: with kidney complications Diabetes mellitus shelter insulin use: with shelter use Diabetes mellitus type: type 2 Hemoptysis R04.2
[2022-03-21 12:37] LABS: Glucose Point of Care 132 mg/dL (70-110)
--- NOTE | 2022-03-21 13:27 | PC.SOCIAL ---
IMM Updated Updated pt on IMM. No questions voiced. Provided pt a copy. Initialed, dated, & timed copy in chart.
--- NOTE | 2022-03-21 13:55 | PC.NURSE ---
Discharged patient. Medications sent to [facility] pharmacy. Medication, activity, and diet education provided to patient. CUrrently, we are still waiting to hear [facility]. Patient did not want to wait around for the scheduling. THey wanted to make the appointments themselves. NUrse provided him with contact information of the clinics and wirtten instructions on scheduling appointments. DIscharged patient via wheelchair to spouse and private vehicle.
== END 2022-03-21 14:16 | disposition home health service (06) | DRG 193 ==
LOC: ER 17:20 → MEDSURG 17:44 → ICU 03-17 19:40
PROVIDERS: Internal Medicine; Admitting Provider Student in an Organized Health Care Education/Training Program; Emergency Provider Family Medicine; PCP Emergency Medicine Emergency Medical Services; Visit Provider Internal Medicine
DX: J18.9 Pneumonia, unspecified organism (principal); I50.33 Acute on chronic diastolic (congestive) heart failure; J96.01 Acute respiratory failure with hypoxia; J44.1 Chronic obstructive pulmonary disease with (acute) exacerbation; J44.0 Chronic obstructive pulmonary disease with (acute) lower respiratory infection; I13.0 Hypertensive heart and chronic kidney disease with heart failure and stage 1 through stage 4 chronic kidney disease, or unspecified chronic kidney disease; R04.2 Hemoptysis; N39.0 Urinary tract infection, site not specified; N17.9 Acute kidney failure, unspecified; Z99.81 Dependence on supplemental oxygen; I08.0 Rheumatic disorders of both mitral and aortic valves; N40.0 Benign prostatic hyperplasia without lower urinary tract symptoms; I25.10 Atherosclerotic heart disease of native coronary artery without angina pectoris; N18.32 Chronic kidney disease, stage 3b; E11.22 Type 2 diabetes mellitus with diabetic chronic kidney disease; Z86.73 Personal history of transient ischemic attack (TIA), and cerebral infarction without residual deficits; F32.A Depression, unspecified; Z87.440 Personal history of urinary (tract) infections; Z86.19 Personal history of other infectious and parasitic diseases; Z86.718 Personal history of other venous thrombosis and embolism; E66.9 Obesity, unspecified; Z68.31 Body mass index [BMI] 31.0-31.9, adult; E11.21 Type 2 diabetes mellitus with diabetic nephropathy; E11.51 Type 2 diabetes mellitus with diabetic peripheral angiopathy without gangrene; Z95.820 Peripheral vascular angioplasty status with implants and grafts; Z87.891 Personal history of nicotine dependence; Z89.612 Acquired absence of left leg above knee; I48.91 Unspecified atrial fibrillation; Z79.01 Long term (current) use of anticoagulants; Z79.4 Long term (current) use of insulin; Z79.51 Long term (current) use of inhaled steroids; Z79.02 Long term (current) use of antithrombotics/antiplatelets; B96.1 Klebsiella pneumoniae [K. pneumoniae] as the cause of diseases classified elsewhere; D69.6 Thrombocytopenia, unspecified; I95.9 Hypotension, unspecified; R00.1 Bradycardia, unspecified; T46.1X5A Adverse effect of calcium-channel blockers, initial encounter; E87.5 Hyperkalemia
CPT/HCPCS: 36415; 36416; 36600; 51702; 71045; 71250; 74230; 80048; 80051; 80053; 80061; 80202; 81001; 81003; 82330; 82436; 82570; 82805; 82962; 83036; 83540; 83550; 83735; 83880; 84100; 84133; 84145; 84300; 84484; 85025; 85378; 85999; 86403; 87040; 87070; 87077; 87086; 87186; 87205; 87449; 87635; 87641; 87804; 92523; 92526; 92610; 92611; 93005; 94640; 94660; 96365; 96372; 96375; 97161; 97530; 99285; C1751; J0610; J0696; J1265; J1815 ×2; J1940; J1956; J2270; J2920; J2930; J3370; J3475; J3490; J3535; J7040; J7512; J7608; J7614; J7626; J7644; Q0144

== ENCOUNTER 2022-03-29 19:24 | Emergency (ER) | payer OTHER, SELFPAY ==
[2022-03-29 19:26] VITALS: BP 98/61; PULSE 81; RESP 25; TEMP 36.7; O2SAT 96; BMI 35.5
--- NOTE | 2022-03-29 19:27 | ED_ITS ---
HPI - SOB/Dyspnea General: Chief Complaint: Shortness of Breath/Dyspnea Stated Complaint: SOB Time Seen by Provider: 03/29/22 19:27 History of Present Illness: HPI Narrative: Mr. Brown is a 66-year-old gentleman with complex past medical history including recent hospitalization for acute kidney injury on chronic kidney disease who presents to the emergency department due to shortness of breath. He reports feeling improved upon the hospital discharge on 03/21 however starting yesterday began having shortness of breath again. Symptoms are worse with lying flat and exertion. Course has been worsening. Intensity symptoms is moderate to severe. He did receive an albuterol treatment from EMS with mild improvement. No other specific changes in health, exacerbating, or alleviating factors identified. Review of Systems General: Reports: 10 or more systems reviewed and unremarkable except in HPI and below PFSH ED PFSH: Medical History Acute kidney injury superimposed on CKD Acute respiratory failure with hypoxia Aortic regurgitation Atrial fibrillation with slow ventricular response Benign prostatic hyperplasia CAD (coronary artery disease) Cervical disc disorder with myelopathy of mid-cervical region Chronic kidney disease, stage III (moderate) Claustrophobia Congestive heart failure with preserved left ventricular function, NYHA class 1 COPD (chronic obstructive pulmonary disease) moderate obstructive ventilatory defect, significant response to bronchodilators. Lung volumes suggestive of mild air trapping. Mild reduction in gas transfer. Coronary artery calcification CVA (cerebral vascular accident) (~01/2021) clinical diagnosis with dysarthria and confusion, unremarkable work up but unable to perform MRI due to severe claustrophobia Degenerative joint disease of left shoulder Degenerative lumbar disc Depression hospitalization 04/2021 Diabetes mellitus Facet arthropathy, lumbar Frequent UTI Hemoptysis Hepatitis C virus infection resolved after antiviral drug therapy some early cirrhosis, HCC ruled out History of DVT (deep vein thrombosis) (~12/2018) HTN (hypertension), benign Hypertension Lumbar disc disease with radiculopathy Lumbar stenosis with neurogenic claudication Mitral regurgitation Myoclonus dystonia New onset atrial fibrillation Obesity (BMI 30.0-34.9) Peripheral vascular disease Pneumonia Recurrent cystitis Thrombocytopenia 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 Pets and animals: No Current gender identity: Male Physical Exam Const: COMMON NORMALS: alert GENERAL APPEARANCE: cooperative, well developed and ill appearing (Chronically) HENMT: COMMON NORMALS: normocephalic and atraumatic HEAD & SCALP: normocep halic and atraumatic Eye: COMMON NORMALS: conjunctivae normal CONJUNCTIVA: Yes conjunctivae normal SCLERA: sclerae normal Neck/C-Spine: COMMON NORMALS: supple GENERAL: Yes trachea midline Resp: EFFORT & INSPECTION: Yes able to speak in complete sentences AUSCULTATION: rhonchi lower bilaterally Cardio: COMMON NORMALS: regular rate and regular rhythm RATE: regular rate RHYTHM: regular rhythm GI: COMMON NORMALS: Soft to palpation PALPATION: Yes Soft to palpation and No Tenderness to palpation present (GI) PERCUSSION: normal to percussion Extremity: GENERAL: Yes normal exam except as noted and Yes edema (1+) Neuro: COMMON NORMALS: moves all extremities SENSORIUM/ORIENTATION: Yes alert and No Orientation impaired Psych: COMMON NORMALS: mental status grossly normal and Normal thought process present THOUGHT PROCESS: Normal thought process present Course ED course: - Patient was seen and evaluated by me at bedside - Patient placed on cardiac monitors, IV access obtained - Initial evaluation notable for exam as above - Labs and xrays personally interpreted by me. EKG showing atrial fibrillation with controlled rate, no STEMI -RT treatment and treatment for COPD exacerbation ordered. - Labs notable for no leukocytosis, near baseline hemoglobin. ABG with adequate oxygen on nasal cannula. Mild evidence of intravascular dehydration on lab studies. Delta troponin negative. BNP mildly elevated. - Imaging notable for no lobar consolidation or pneumothorax. Heart is enlarged though no significant pulmonary edema identified - Upon serial reexamination after treatment the patient was improved - Based on patient history, evaluation, and testing as interpreted the most likely cause of the patient's condition is COPD exacerbation. - The results of ED evaluation were discussed with the patient including prescriptions and/or symptomatic cares (if applicable) including appropriate and responsible use, followup plan, and return precautions. The patient verbalized understanding and felt safe for discharge. - Patient discharged in satisfactory condition. Note: Click bubbles or prepopulated wray in note writing are used for assistance with data collection and billing and are inherently more limited than narrative and other text portions of this note. Please use narrative for additional clinical history and defer to narrative/free test for any case of contradictory information. If information appears in only free text or click bubble it should be considered present or absent as reported. Please contact note filing writer for clarifications of clinical information or contradictory information. MDM is a brief summary, contradictory or erroneous seeming information should be clarified and full note should be reviewed. Vital Signs: Vital signs: Vital Signs Temperature 98.1 F 03/29/22 19:26 Pulse Rate 97 03/30/22 00:08 Respiratory Rate 19 H 03/30/22 00:08 Blood Pressure 105/89 03/30/22 00:08 Pulse Oximetry 94 03/30/22 00:08 MDM - SOB/Dyspnea Medical Decision Making 66-year-old gentleman with complex past medical history presenting with shortness of breath and productive sputum. ED evaluation without acute abnormality requiring inpatient management. Likely COPD exacerbation with multifactorial component regarding underlying health. Satisfactory for outpatient management with strict return precautions. Medical Records I reviewed the patient's medical records. Lab Data I reviewed the patient's lab results. : 03/29/22 20:15 03/29/22 20:15 Labs/Radiology: Radiology Impressions Chest X-Ray 03/29/22 19:34 IMPRESSION: Cardiomegaly, negative for infiltrate. Laboratory Results WBC 7.3 10^3/uL (4.0-10.0) 03/29/22 20:15 RBC 3.48 10^6/uL (4.1-5.3) L 03/29/22 20:15 Hgb 10.0 g/dL (11.7-16.6) L 03/29/22 20:15 Hct 32.9 % (42.0-52.0) L 03/29/22 20:15 MCV 94.5 fl (80-94) H 03/29/22 20:15 MCH 28.7 pg (28.0-34.0) 03/29/22 20:15 MCHC 30.4 g/dL (30.0-36.0) 03/29/22 20:15 RDW 16.5 % (12.1-15.1) H 03/29/22 20:15 Plt Count 57 10^3/cmm (130-400) L 03/29/22 20:15 MPV 12.3 fL (7.4-10.4) H 03/29/22 20:15 Neut % (Auto) 73.1 % 03/29/22 20:15 Lymph % (Auto) 18.7 % 03/29/22 20:15 [place] % (Auto) 6.4 % 03/29/22 20:15 Eos % (Auto) 1.2 % 03/29/22 20:15 Baso % (Auto) 0.1 % 03/29/22 20:15 Neut # (Auto) 5.32 10^3/uL (1.8-7.7) 03/29/22 20:15 Lymph # (Auto) 1.4 10^3/uL (0.8-4.8) 03/29/22 20:15 [place] # (Auto) 0.5 10^3/uL (0.2-0.9) 03/29/22 20:15 Eos # (Auto) 0.1 10^3/uL (0.0-0.8) 03/29/22 20:15 Baso # (Auto) 0.0 10^3/uL (0.0-0.1) 03/29/22 20:15 Nucleated RBC % (auto) 0 % 03/29/22 20:15 Nucleated RBCs # 0.0 /100WBC 03/29/22 20:15 Specimen Type Arterial 03/29/22 19:39 Sample Site Radial, right 03/29/22 19:39 ABG pH 7.44 (7.35-7.45) 03/29/22 19:39 ABG pCO2 32.7 mmHg (35-45) L 03/29/22 19:39 ABG pO2 84.2 mmHg (80.0-100.0) 03/29/22 19:39 ABG HCO3 22.2 mmol/L (22-26) 03/29/22 19:39 ABG Base Excess -1.4 mmol/L (-2.0-2.0) 03/29/22 19:39 Mich Test Pos 03/29/22 19:39 Hematocrit 30.9 % (42-52) L 03/29/22 19:39 Hgb O2 Saturation 95.2 % (95-100) 03/29/22 19:39 Carboxyhemoglobin 1.4 %THgb (0.4-20.1) 03/29/22 19:39 Methemoglobin 1.0 % (0.4-1.5) 03/29/22 19:39 Total Hemoglobin 10.1 g/dL (14-18) L 03/29/22 19:39 O2 Delivery Device Nc 03/29/22 19:39 O2 Liters/Min 3.0 % 03/29/22 19:39 Soft Work Wrapper Examiner ID Cwalters 03/29/22 19:39 Sodium 137 mmol/L (136-145) 03/29/22 20:15 Potassium 4.5 mmol/L (3.5-5.1) 03/29/22 20:15 Chloride 105 mmol/L (98-107) 03/29/22 20:15 Carbon Dioxide 17 mmol/L (22-29) L 03/29/22 20:15 Anion Gap 19.5 (5-19) H 03/29/22 20:15 BUN 28 mg/dL (8-23) H 03/29/22 20:15 Creatinine 2.0 mg/dL (0.7-1.2) H 03/29/22 20:15 GFR Calculation 33.8 mL/min (90-130) L 03/29/22 20:15 Glucose 147 mg/dL (65-115) H 03/29/22 20:15 Calculated Osmolality 292 mOsm/kg (285-295) 03/29/22 20:15 Lactic Acid 2.2 mmol/L (0.5-2.2) 03/29/22 20:15 Calcium 8.0 mg/dL (8.5-10.5) L 03/29/22 20:15 Total Bilirubin 0.9 mg/dL (0.15-1.2) 03/29/22 20:15 AST 15 U/L (0-40) 03/29/22 20:15 ALT 23 U/L (0-41) 03/29/22 20:15 Alkaline Phosphatase 31 IU/L (40-130) L 03/29/22 20:15 Troponin T Baseline 31 ng/L (0-15) H 03/29/22 20:15 Troponin T 120 Minute 29.29 ng/L (0-15) H 03/29/22 22:00 Delta Troponin T -1.71 ABS# (0-10) L 03/29/22 22:00 NT-Pro-B Natriuret Pep 2816 pg/mL (0-125) H 03/29/22 20:15 Total Protein 6.0 g/dL (6.6-8.7) L 03/29/22 20:15 Albumin 3.5 g/dL (3.5-5.2) 03/29/22 20:15 Globulin 2.5 g/dL (1.3-4.6) 03/29/22 20:15 Discharge Plan Discharge Patient Disposition: Home Clinical Impression: Acute exacerbation of chronic obstructive airways disease, Heart failure Condition: Stable Prescriptions: New doxycycline hyclate 100 mg tablet 100 mg PO BID 10 Days Qty: 20 0RF No Action Stiolto Respimat 2.5-2.5 mcg/actuation mist 2 puff inhalation DAILY Qty: 4 3RF metoprolol tartrate 25 mg tablet 12.5 mg PO BID Qty: 60 3RF escitalopram oxalate 10 mg Tablet 5 mg PO DAILY Qty: 30 0RF atorvastatin 80 mg Tablet 80 mg PO QPM 0RF ferrous sulfate 325 mg (65 mg iron) Tablet 325 mg PO DAILY@1100 0RF cholecalciferol (vitamin D3) 2,000 unit Tablet 2,000 unit PO DAILY@1100 0RF losartan 100 mg tablet 50 mg PO DAILY@1100 0RF Hold Instructions: Resume on 03/06/22. pentoxifylline 400 mg tablet extended release 400 mg PO BID 0RF senna 8.6 mg Capsule 8.6 mg PO DAILY PRN (Reason: Constipation) 0RF levetiracetam [Keppra] 500 mg tablet 500 mg PO BID Qty: 60 0RF clopidogrel [Plavix] 75 mg Tablet 75 mg PO DAILY@1100 0RF albuterol sulfate 90 mcg/actuation Hfa Aerosol Inhaler 2 puff INHALATION Q4H PRN (Reason: Shortness Of Breath) 0RF insulin aspart U-100 [Novolog Flexpen U-100 Insulin] 100 unit/mL (3 mL) Insulin Pen 17 unit SUBCUT BEDTIME PRN (Reason: blood sugar) 0RF Lantus Solostar U-100 Insulin 100 unit/mL (3 mL) insulin pen 17 unit SUBCUT BEDTIME 0RF tamsulosin 0.4 mg capsule 0.4 mg PO BID@1100,2000 0RF fluticasone propionate 50 mcg/actuation Mallie,Suspension 2 spray INTRANASAL DAILY PRN (Reason: Allergy Symptoms) 0RF furosemide [Lasix] 20 mg tablet 20 mg PO QAM 0RF Hold Instructions: Resume on 03/28/22. diltiazem HCl 240 mg Capsule,Extended Release 24hr 240 mg PO DAILY 30 Days Qty: 30 3RF amiodarone 200 mg tablet 200 mg PO DAILY Qty: 30 3RF Eliquis 5 mg Tablet 5 mg PO BID@0900,2100 Qty: 180 0RF omeprazole 40 mg Capsule,Delayed Release(Dr/Ec) 40 mg PO DAILY@11 0RF multivitamin with iron-mineral Tablet 1 tab PO DAILY 0RF ipratropium-albuterol 20-100 mcg/actuation Mist 1 puff INHALATION QID PRN (Reason: breathing) 0RF Rx Instructions: space evenly during waking hours Discharge Orders: Discharge ED (Routine); Ordered 03/29/22 Ordered By: Ady Fragoso Referrals: Fer Musa DO [Primary Care Provider] - Discharge Diet: Usual diet Discharge Activity: Increase activity as tolerated Activity Restrictions/Additional Instructions: Thank you for visiting the emergency department. You were seen evaluated for shortness of breath. The exact cause of your symptoms is unclear though is likely multifactorial including exacerbation of underlying lung disease as well as mild volume overload. Please take Lasix 20 mg each morning for the next 4 days. I will prescribe steroids, antibiotics, and please use your albuterol inhaler with 2 puffs every 4 hours for the next 24 hours followed by 2 puffs every 6 hours for 24 hours, followed by 2 puffs every 8 hours and then resume normal schedule. Please follow-up with your senior financial consultant and primary care provider. Please have repeat labs drawn in 1 week. Return to the emergency department for worsening symptoms or anything else that you are concerned about a feel needs emergency department evaluation. Coding Level of Care Code ED Crusher Plant Operator for Chio Bartholomew
--- NOTE | 2022-03-29 19:34 | ECG_ITS ---
[facility] Test Date: 2022-03-29 Pat Name: Jeffrey Brown Department: Room: Gender: Male Extruder: : 1955 Requested By: Ady Fragoso Order Number: [id number] Janet MD: Carly Muro M.D. Measurements Intervals [place] Rate: 86 P: [place]: QRS: 11 QRSD: 92 T: 64 QT: 361 QTc: 433 Interpretive Statements ATRIAL FIBRILLATION POSSIBLE INFERIOR MYOCARDIAL INFARCTION , PROBABLY OLD [30 ms Q WAVE IN II/aVF] ABNORMAL RHYTHM ECG Compared to ECG 03/17/2022 19:51:43 No significant changes Electronically Signed On 03-30-2022 7:50:23 CDT by Carly Muro M.D. [email or web address] [email or web address], [id number]
--- NOTE | 2022-03-29 19:34 | XRR_ITS ---
PROCEDURE INFORMATION: Exam: XR Chest Exam date and time: 03/29/2022 7:55 PM Age: 66 years old Clinical indication: Shortness of breath; Additional info: SOB TECHNIQUE: Imaging protocol: XR of the chest. Views: 1 view. COMPARISON: CR XR chest 1V portable [id number] 03/20/2022 5:45 AM FINDINGS: Lungs: Unremarkable. No consolidation. Pleural spaces: Unremarkable. No pleural effusion. No pneumothorax. Heart/Mediastinum: Cardiomegaly. Bones/joints: Unremarkable. XR/XR chest 1V portable [id number] IMPRESSION: Cardiomegaly, negative for infiltrate.
[2022-03-29] MEDS: ipratropium-albuterol 3 mL Neb INHALATION (19:44)
[2022-03-29 19:47] VITALS: PULSE 83; RESP 20; O2SAT 98
[2022-03-29 19:51] LABS: ABG PCO2 32.7 mmHg (35-45); ABG PH Result 7.44 (7.35-7.45); Arterial Blood Gas Hematocrit 30.9 % (42-52); Base Excess ABG -1.4 mmol/L (-2.0-2.0); Blood Gas Allen Test Pos; Blood Gas Sample Site Radial, right; Blood Gas Sample Type Arterial; Carboxyhemoglobin 1.4 %THgb (0.4-20.1); HCO3 ABG 22.2 mmol/L (22-26); HGB O2 Sat 95.2 % (95-100); Oxygen Device NC; PO2 ABG 84.2 mmHg (80.0-100.0); Total Hemoglobin 10.1 g/dL (14-18)
[2022-03-29 19:55] VITALS: PULSE 88
[2022-03-29 20:24] LABS: Basophils % 0.1 %; Eosinophils # 0.1 10^3/uL (0.0-0.8); Eosinophils % 1.2 %; Hematocrit 32.9 % (42.0-52.0); Lymphocytes # 1.4 10^3/uL (0.8-4.8); Lymphocytes % 18.7 %; Mean Corpuscular HGB Conc 30.4 g/dL (30.0-36.0); Mean Corpuscular Hemoglobin 28.7 pg (28.0-34.0); Mean Corpuscular Volume 94.5 fl (80-94); Mean Platelet Volume 12.3 fL (7.4-10.4); Monocytes # 0.5 10^3/uL (0.2-0.9); Monocytes % 6.4 %; Neutrophils # 5.32 10^3/uL (1.8-7.7); Neutrophils % 73.1 %; Nucleated Red Blood Cells % 0 %; Platelet Count 57 10^3/cmm (130-400); Red Blood Count 3.48 10^6/uL (4.1-5.3); Red Cell Distribution Width 16.5 % (12.1-15.1); White Blood Count 7.3 10^3/uL (4.0-10.0)
[2022-03-29 20:48] LABS: Lactic Sepsis W/Reflex 2.2 mmol/L (0.5-2.2)
[2022-03-29 20:49] LABS: Troponin(5th) Baseline 31 ng/L (0-15)
[2022-03-29 20:54] VITALS: BP 118/62; PULSE 93; RESP 22; O2SAT 96
[2022-03-29 21:00] VITALS: BP 130/46; PULSE 86; RESP 22; O2SAT 95
[2022-03-29 21:27] LABS: Alanine Aminotransferase 23 U/L (0-41); Albumin Level 3.5 g/dL (3.5-5.2); Alkaline Phosphatase 31 IU/L (40-130); Anion Gap 19.5 (5-19); Aspartate Amino Transferase 15 U/L (0-40); Blood Urea Nitrogen 28 mg/dL (8-23); Carbon Dioxide 17 mmol/L (22-29); Chloride 105 mmol/L (98-107); Globulin 2.5 g/dL (1.3-4.6); Glomerular Filtration Rate 33.8 mL/min (90-130); Glucose 147 mg/dL (65-115); NT Pro B Type Natriuretic Pept 2816 pg/mL (0-125); Osmolality Calculated 292 mOsm/kg (285-295); Potassium 4.5 mmol/L (3.5-5.1); Sodium 137 mmol/L (136-145); Total Bilirubin 0.9 mg/dL (0.15-1.2)
[2022-03-29 21:30] VITALS: BP 106/67; PULSE 85; RESP 20; O2SAT 97
--- NOTE | 2022-03-29 21:34 | ECG_ITS ---
[facility] Test Date: 2022-03-29 Pat Name: Jeffrey Brown Department: Room: Gender: Male Port Surveyor: : 1955 Requested By: Ady Fragoso Order Number: [id number] Janet MD: Eloy Otoole M.D. Measurements Intervals [place] Rate: 88 P: [place]: QRS: 15 QRSD: 89 T: 62 QT: 341 QTc: 413 Interpretive Statements ATRIAL FIBRILLATION Compared to ECG 03/29/2022 19:29:38 Myocardial infarct finding no longer present Electronically Signed On 03-30-2022 17:21:34 CDT by Eloy Otoole M.D. [email or web address] system [id number]
[2022-03-29 22:09] LABS: Reflex Lactate Order REFLEX LACTIC ORDERD
[2022-03-29 22:51] LABS: Troponin 5 2HR 29.29 ng/L (0-15)
[2022-03-29 22:53] LABS: Troponin 5 2HR Delta -1.71 ABS# (0-10)
[2022-03-29] MEDS: doxycycline 100 mg Tablet PO (23:34)
[2022-03-29] MEDS: FUROsemide 10 mg/mL SDV 2mL 20 MG IVP (23:38)
[2022-03-30 00:08] VITALS: BP 105/89; PULSE 97; RESP 19; O2SAT 94
== END 2022-03-30 00:12 | disposition home or self-care (01) ==
PROVIDERS: Emergency Provider Emergency Medicine; PCP Emergency Medicine Emergency Medical Services
DX: J44.1 Chronic obstructive pulmonary disease with (acute) exacerbation (principal); Z87.891 Personal history of nicotine dependence; I48.91 Unspecified atrial fibrillation; I50.9 Heart failure, unspecified
CPT/HCPCS: 36600; 71045; 80053; 82805; 83605; 83880; 84484; 85025; 93005; 94640; 96374; 96375; 99285; J1940; J2930

== ENCOUNTER → 2022-04-03 14:14 | Outpatient (BNVA) | payer OTHER, SELFPAY | PROVIDERS: PCP Emergency Medicine Emergency Medical Services; Visit Provider Nurse Practitioner Family | DX: I11.0 Hypertensive heart disease with heart failure (principal); I50.30 Unspecified diastolic (congestive) heart failure; Z87.891 Personal history of nicotine dependence | CPT/HCPCS: 99213 ==

== ENCOUNTER 2022-04-10 12:20 | Inpatient (IN) | payer OTHER, SELFPAY ==
[2022-04-10] VITALS (18 sets, daily range): BP systolic 118–138; BP diastolic 73–100; PULSE 34–130; RESP 15–33; TEMP 36.6–36.7; O2SAT 89–96; BMI 33.5
--- NOTE | 2022-04-10 12:30 | ECG_ITS ---
[facility] Test Date: 2022-04-10 Pat Name: Jeffrey Brown Department: Room: [facility] Gender: Male Head Of Ict: : 1955 Requested By: Giovanny Joseph Order Number: [id number] Janet MD: Eloy Otoole M.D. Measurements Intervals [place] Rate: 114 P: [place]: QRS: -1 QRSD: 91 T: 56 QT: 310 QTc: 428 Interpretive Statements ATRIAL FIBRILLATION WITH RAPID VENTRICULAR RESPONSE POSSIBLE INFERIOR MYOCARDIAL INFARCTION , PROBABLY OLD [30 ms Q WAVE IN II/aVF] Compared to ECG 03/29/2022 21:25:30 Myocardial infarct finding now present Electronically Signed On 04-10-2022 19:42:21 CDT by lEoy Otoole M.D. [id number]
--- NOTE | 2022-04-10 12:38 | XRR_ITS ---
PROCEDURE INFORMATION: Exam: XR Chest Exam date and time: 04/10/2022 12:48 PM Age: 66 years old Clinical indication: Shortness of breath; Additional info: SOB TECHNIQUE: Imaging protocol: XR of the chest. Views: 1 view. COMPARISON: CR (CHEST, ) 03/29/2022 7:55 PM FINDINGS: Lungs: Mild nonspecific opacity in the right lung base is new since 03/29/2022. Left lung is grossly clear. Pleural spaces: There is no pleural effusion or pneumothorax. Heart/Mediastinum: The cardiac silhouette is within normal limits of size given AP technique. Bones/joints: Moderate degenerative disease at both shoulders. XR/XR chest 1V portable [id number] IMPRESSION: Nonspecific opacity in the right lung base. Possible atelectasis or consolidation.
--- NOTE | 2022-04-10 12:41 | ED_ITS ---
HPI - SOB/Dyspnea General: Chief Complaint: Abdominal Pain Stated Complaint: SOB/ ABDOMINAL PAIN Time Seen by Provider: 04/10/22 12:30 History of Present Illness: HPI Narrative: Patient comes in with shortness of breath that he states been getting worse over the past couple of days. Has a history of congestive heart failure. States he has not missed any of his medications. He also is a history of A. fib. Upon arrival patient is tachycardic and stat EKG shows A. fib with RVR. He is on 2 L of supplemental oxygen via nasal cannula, which he states he has been on for the past couple months. Associated symptoms: Reports palpitations; Deny abdominal pain, chest pain, fever(s), nausea, polyuria or vomiting Review of Systems Const: Denies: fever(s) or body aches Eyes: Denies: change in vision or blurry vision ENMT: Denies: throat pain or odynophagia Card: Reports: palpitations; Denies: chest pain Resp: Reports: dyspnea GI: Denies: abdominal pain, nausea or vomiting : Denies: flank pain or dysuria Musc: Denies: neck pain or back pain Skin/Breast: Denies: rash or pruritus Neuro: Denies: headache(s) or numbness in extremities Psych: Denies: anxiety or change in appetite Endo: Denies: polyuria or excessive sweating PFS ED PFSH: Medical History (Updated 04/10/22 @ 14:42 by Giovanny Joseph MD) Acute kidney injury superimposed on CKD Acute respiratory failure with hypoxia Aortic regurgitation Atrial fibrillation with slow ventricular response Benign prostatic hyperplasia CAD (coronary artery disease) Cervical disc disorder with myelopathy of mid-cervical region Chronic kidney disease, stage III (moderate) Claustrophobia Congestive heart failure with preserved left ventricular function, NYHA class 1 COPD (chronic obstructive pulmonary disease) moderate obstructive ventilatory defect, significant response to bronchodilators. Lung volumes suggestive of mild air trapping. Mild reduction in gas transfer. Coronary artery calcification CVA (cerebral vascular accident) (~01/2021) clinical diagnosis with dysarthria and confusion, unremarkable work up but unable to perform MRI due to severe claustrophobia Degenerative joint disease of left shoulder Degenerative lumbar disc Depression hospitalization 04/2021 Diabetes mellitus Facet arthropathy, lumbar Frequent UTI Hemoptysis Hepatitis C virus infection resolved after antiviral drug therapy some early cirrhosis, HCC ruled out History of DVT (deep vein thrombosis) (~12/2018) HTN (hypertension), benign Hypertension Lumbar disc disease with radiculopathy Lumbar stenosis with neurogenic claudication Mitral regurgitation Myoclonus dystonia New onset atrial fibrillation Obesity (BMI 30.0-34.9) Peripheral vascular disease Pneumonia Recurrent cystitis Thrombocytopenia 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 Pets and animals: No Current gender identity: Male Physical Exam Const: COMMON NORMALS: no acute distress, patient oriented x3 and alert HENMT: COMMON NORMALS: normocephalic and atraumatic HEAD & SCALP: normocephalic and atraumatic Eye: COMMON NORMALS: Equal, round and reactive pupils present and EOMs intact bilaterally PUPIL: Yes Equal, round and reactive pupils present Neck/C-Spine: COMMON NORMALS: full ROM and supple Resp: COMMON NORMALS: normal respiratory effort, No retractions and No use of accessory muscles Cardio: OTHER: Tachycardia with an irregularly irregular rhythm GI: COMMON NORMALS: Normal to inspection, nondistended, normoactive bowel sounds present, Soft to palpation and non-tender PALPATION: Yes Soft to palpation Back/Pelvis: COMMON NORMALS: thoracic and lumbar spine normal to inspection and no thoracic nor lumbar tenderness Extremity: COMMON NORMALS: full ROM OTHER: Left AKA Neuro: COMMON NORMALS: patient oriented x3 SENSORIUM/ORIENTATION: Yes alert Psych: COMMON NORMALS: mental status grossly normal and cooperative Skin: COMMON NORMALS: no rashes or lesions noted and no wounds GENERAL SKIN EXAM: no rashes or lesions noted Course Vital Signs: Vital signs: Vital Signs Temperature 97.8 F 04/10/22 12:23 Pulse Rate 109 H 04/10/22 12:23 Respiratory Rate 25 H 04/10/22 12:23 Blood Pressure 134/84 04/10/22 12:23 Pulse Oximetry 95 04/10/22 12:23 MDM - SOB/Dyspnea Medical Decision Making Patient comes in with shortness of breath that he states been getting worse over the past couple of days. Has a history of congestive heart failure. States he has not missed any of his medications. He also is a history of A. fib. Upon arrival patient is tachycardic and stat EKG shows A. fib with RVR. He is on 2 L of supplemental oxygen via nasal cannula, which he states he has been on for the past couple months. On physical exam he has a left AKA. He is tachycardic with an irregularly irregular rhythm. We will check labs, x-ray, give IV diltiazem, and reassess. On reassessment I talked to the patient about the test results. I discussed the case with the hospitalist, and we will admit for further work-up and treatment of his A. fib with RVR. Lab Data : 04/10/22 13:35 04/10/22 13:35 Labs/Radiology: Radiology Impressions Chest X-Ray 04/10/22 12:38 IMPRESSION: Nonspecific opacity in the right lung base. Possible atelectasis or consolidation. Laboratory Results WBC 5.9 10^3/uL (4.0-10.0) 04/10/22 13:35 RBC 3.58 10^6/uL (4.1-5.3) L 04/10/22 13:35 Hgb 10.1 g/dL (11.7-16.6) L 04/10/22 13:35 Hct 34.2 % (42.0-52.0) L 04/10/22 13:35 MCV 95.5 fl (80-94) H 04/10/22 13:35 MCH 28.2 pg (28.0-34.0) 04/10/22 13:35 MCHC 29.5 g/dL (30.0-36.0) L 04/10/22 13:35 RDW 16.6 % (12.1-15.1) H 04/10/22 13:35 Plt Count 101 10^3/cmm (130-400) L 04/10/22 13:35 MPV 10.7 fL (7.4-10.4) H 04/10/22 13:35 Neut % (Auto) 67.2 % 04/10/22 13:35 Lymph % (Auto) 24.0 % 04/10/22 13:35 [place] % (Auto) 7.1 % 04/10/22 13:35 Eos % (Auto) 1.2 % 04/10/22 13:35 Baso % (Auto) 0.2 % 04/10/22 13:35 Neut # (Auto) 3.95 10^3/uL (1.8-7.7) 04/10/22 13:35 Lymph # (Auto) 1.4 10^3/uL (0.8-4.8) 04/10/22 13:35 [place] # (Auto) 0.4 10^3/uL (0.2-0.9) 04/10/22 13:35 Eos # (Auto) 0.1 10^3/uL (0.0-0.8) 04/10/22 13:35 Baso # (Auto) 0.0 10^3/uL (0.0-0.1) 04/10/22 13:35 Nucleated RBC % (auto) 0 % 04/10/22 13:35 Nucleated RBCs # 0.0 /100WBC 04/10/22 13:35 Specimen Type Arterial 04/10/22 14:16 Sample Site Radial, right 04/10/22 14:16 ABG pH 7.41 (7.35-7.45) 04/10/22 14:16 ABG pCO2 35.1 mmHg (35-45) 04/10/22 14:16 ABG pO2 71.8 mmHg (80.0-100.0) L 04/10/22 14:16 ABG HCO3 22.2 mmol/L (22-26) 04/10/22 14:16 ABG Base Excess -2.1 mmol/L (-2.0-2.0) L 04/10/22 14:16 Mich Test Pos 04/10/22 14:16 Hematocrit 32.2 % (42-52) L 04/10/22 14:16 O2 Delivery Device Nc 04/10/22 14:16 O2 Liters/Min 2.0 % 04/10/22 14:16 FiO2 28.0 % 04/10/22 14:16 Ui Application Developer ID Ed 04/10/22 14:16 Sodium 137 mmol/L (136-145) 04/10/22 13:35 Potassium 4.8 mmol/L (3.5-5.1) 04/10/22 13:35 Chloride 104 mmol/L (98-107) 04/10/22 13:35 Carbon Dioxide 20 mmol/L (22-29) L 04/10/22 13:35 Anion Gap 17.8 (5-19) 04/10/22 13:35 BUN 36 mg/dL (8-23) H 04/10/22 13:35 Creatinine 2.1 mg/dL (0.7-1.2) H 04/10/22 13:35 GFR Calculation 32.0 mL/min (90-130) L 04/10/22 13:35 Glucose 109 mg/dL (65-115) 04/10/22 13:35 Calculated Osmolality 293 mOsm/kg (285-295) 04/10/22 13:35 Calcium 9.1 mg/dL (8.5-10.5) 04/10/22 13:35 Total Bilirubin 1.0 mg/dL (0.15-1.2) 04/10/22 13:35 AST 25 U/L (0-40) 04/10/22 13:35 ALT 21 U/L (0-41) 04/10/22 13:35 Alkaline Phosphatase 37 IU/L (40-130) L 04/10/22 13:35 Troponin T Baseline 34 ng/L (0-15) H 04/10/22 13:35 NT-Pro-B Natriuret Pep 4329 pg/mL (0-125) H 04/10/22 13:35 Total Protein 6.7 g/dL (6.6-8.7) 04/10/22 13:35 Albumin 3.9 g/dL (3.5-5.2) 04/10/22 13:35 Globulin 2.8 g/dL (1.3-4.6) 04/10/22 13:35 Discharge Plan Discharge Patient Disposition: Admitted As Inpatient Clinical Impression: Atrial fibrillation with rapid ventricular response Condition: Stable Coding Level of Care Code ED Quality 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
[2022-04-10 13:46] LABS: Basophils % 0.2 %; Eosinophils # 0.1 10^3/uL (0.0-0.8); Eosinophils % 1.2 %; Hematocrit 34.2 % (42.0-52.0); Hemoglobin 10.1 g/dL (11.7-16.6); Lymphocytes # 1.4 10^3/uL (0.8-4.8); Mean Corpuscular HGB Conc 29.5 g/dL (30.0-36.0); Mean Corpuscular Hemoglobin 28.2 pg (28.0-34.0); Mean Corpuscular Volume 95.5 fl (80-94); Mean Platelet Volume 10.7 fL (7.4-10.4); Monocytes # 0.4 10^3/uL (0.2-0.9); Monocytes % 7.1 %; Neutrophils # 3.95 10^3/uL (1.8-7.7); Neutrophils % 67.2 %; Nucleated Red Blood Cells % 0 %; Platelet Count 101 10^3/cmm (130-400); Red Blood Count 3.58 10^6/uL (4.1-5.3); Red Cell Distribution Width 16.6 % (12.1-15.1); White Blood Count 5.9 10^3/uL (4.0-10.0)
[2022-04-10 14:10] LABS: Troponin(5th) Baseline 34 ng/L (0-15)
[2022-04-10 14:15] LABS: Alanine Aminotransferase 21 U/L (0-41); Albumin Level 3.9 g/dL (3.5-5.2); Alkaline Phosphatase 37 IU/L (40-130); Aspartate Amino Transferase 25 U/L (0-40); Blood Urea Nitrogen 36 mg/dL (8-23); Calcium 9.1 mg/dL (8.5-10.5); Carbon Dioxide 20 mmol/L (22-29); Chloride 104 mmol/L (98-107); Globulin 2.8 g/dL (1.3-4.6); Glucose 109 mg/dL (65-115); NT Pro B Type Natriuretic Pept 4329 pg/mL (0-125); Osmolality Calculated 293 mOsm/kg (285-295); Sodium 137 mmol/L (136-145); Total Protein 6.7 g/dL (6.6-8.7)
[2022-04-10 14:17] LABS: Anion Gap 17.8 (5-19); Potassium 4.8 mmol/L (3.5-5.1)
[2022-04-10 14:25] LABS: ABG PCO2 35.1 mmHg (35-45); ABG PH Result 7.41 (7.35-7.45); Arterial Blood Gas Hematocrit 32.2 % (42-52); Base Excess ABG -2.1 mmol/L (-2.0-2.0); Blood Gas Allen Test Pos; Blood Gas Sample Type Arterial; HCO3 ABG 22.2 mmol/L (22-26); PO2 ABG 71.8 mmHg (80.0-100.0)
[2022-04-10 14:26] LABS: Blood Gas Operator Identificat ED; Blood Gas Sample Site Radial, right; Oxygen Device NC
--- NOTE | 2022-04-10 14:30 | ECG_ITS ---
[facility] Test Date: 2022-04-10 Pat Name: Jeffrey Brown Department: Room: [facility] Gender: Male Rn Gastroenterology: : 1955 Requested By: Giovanny Joseph Order Number: [id number] Janet MD: Eloy Otoole M.D. Measurements Intervals Rogers Rate: 112 P: [place]: QRS: -6 QRSD: 91 T: 55 QT: 308 QTc: 421 Interpretive Statements ATRIAL FIBRILLATION WITH RAPID VENTRICULAR RESPONSE POSSIBLE INFERIOR MYOCARDIAL INFARCTION , PROBABLY OLD [30 ms Q WAVE IN II/aVF] Compared to ECG 03/29/2022 21:25:30 Myocardial infarct finding now present Electronically Signed On 04-10-2022 19:40:45 CDT by Eloy Otoole M.D. [id number]
[2022-04-10] MEDS: dilTIAZem 5 mg/mL SDV 5 mL 10 MG IVP (14:48)
--- NOTE | 2022-04-10 16:15 | PC.NURSE ---
Arrived from ED, AO x4, transferred self to bed
--- NOTE | 2022-04-10 16:31 | P.HP_ITS ---
Providers/Chief Complaint Admitting Physician: Sujit Zhang MD Primary Care Provider: Fer Musa DO Chief Complaint: SOB/ ABDOMINAL PAIN History of Present Illness Jeffrey Brown is a 66 year old male with past medical history of aortic regurgitation, CAD, CKD stage III, COPD, CVA, type 2 diabetes mellitus, COPD, hypertension, mitral regurgitation, afib on eliquis came to the ER today with shortness of breath getting worse over last 3 to 4 days. Patient states he is never been back to his baseline since discharge. He denies of having any fever, nausea vomiting, dizziness, diarrhea. Patient was recently in hospital from 03/14-0 03/21 when he was treated for Kleb siella pneumonia. During that hospitalization his stay was complicated by him developing congestive heart failure for which he was managed in ICU with noninvasive ventilation. On review of chart he was discharged off Lasix on lower dose of Cardizem 240 mg daily, metoprolol 12.5 mg twice daily and amiodarone 200 mg daily. Patient states he has been taking his medications regularly. In between he was seen by Selena Vasquez from cardiology when his oral Lasix were resumed. In the ER today he was found to be in atrial fibrillation with rapid ventricular response. He was given 50 mg of IV Cardizem in divided doses and hospital service was consulted for further management. His blood work today showed a white count of 5.9, hemoglobin of 10.1, ABG showing a pH 7.4, PCO2 35, PO2 of 71 on 2 L nasal cannula, chemistry showing a sodium of 137, creatinine of 2.1, BUN of 35, baseline troponin of 34, proBNP of 4329. Review of Systems General: Reports: 10 or more systems reviewed and unremarkable except in HPI and below Const: Denies: fever(s), chills, body aches, change in appetite, change in weight, malaise, night sweats, diaphoresis, change in sleep pattern, daytime sleepiness or snoring Eyes: Denies: change in vision, blurry vision, photophobia, eye discomfort or eye discharge ENMT: Denies: throat pain, enlarged tonsils, hoarseness, mouth pain, oral sores, dry mouth, tinnitus, nasal congestion or post nasal drip Card: Denies: chest pain, palpitations, irregular heart rhythm, edema, sw elling of feet/ankles, lightheadedness, syncope, pre-syncope, dyspnea on exertion, orthopnea, leg pain with exertion or acrocyanosis Resp: Denies: dyspnea, productive cough, non-productive cough, wheezing, stridor, pain on inspiration, change in phlegm color, hemoptysis or chest congestion GI: Denies: abdominal pain, nausea, vomiting, hematemesis, coffee ground emesis, dysphagia, heartburn, diarrhea, constipation, bloating, GI cramping, change in bowel habits, pain on defecation, hematochezia or melena : Denies: flank pain, difficulty urinating, dysuria, urinary frequency, urinary urgency, urinary hesitancy, urinary dribbling, difficulty starting urination, change in urine stream, nocturia or hematuria Musc: Denies: neck pain, back pain, extremity pain, joint pain, joint swelling, joint redness, joint stiffness or limited range of motion Neuro: Denies: headache(s), numbness in extremities, weakness in extremities, sensory changes, lack of coordination, difficulty walking, frequent falls, dizziness, vertigo, confusion, Slurred speech present, difficulty communicating thoughts or seizure-like activity Psych: Denies: anxiety, depression, mood swings, panic attacks, hopelessness or irritability Endo: Denies: polyuria, polydipsia, tired all the time, cold intolerance, exce ssive sweating, flushing or heat intolerance Jesús/Lymph: Denies: easy bruising or easy bleeding All/Imm: Denies: tongue swelling, facial swelling or acute wheezing Medications/Allergies Home Medications Medication Instructions Recorded Confirmed Last Taken Type atorvastatin 80 mg tablet 80 mg PO QPM 12/28/19 04/03/22 03/13/22 History cholecalciferol (vitamin D3) 50 2,000 unit PO DAILY@1100 12/28/19 04/03/22 03/14/22 History mcg (2,000 unit) tablet ferrous sulfate 325 mg (65 mg 325 mg PO DAILY@1100 12/28/19 04/03/22 03/14/22 History iron) tablet sennosides 8.6 mg capsule (senna) 8.6 mg PO DAILY PRN 12/30/19 04/03/22 01/23/22 History levetiracetam 500 mg tablet 500 mg PO BID #60 tab 01/03/20 04/03/22 03/14/22 Rx (Keppra) losartan 100 mg tablet 50 mg PO DAILY@1100 03/17/20 04/03/22 03/14/22 History pentoxifylline 400 mg 400 mg PO BID 03/17/20 04/03/22 03/14/22 History tablet,extended release tiotropium 2.5 mcg-olodaterol 2.5 2 puff INHALATION DAILY #4 g 11/25/20 04/03/22 03/14/22 Rx mcg/actuation mist for inhalation (Stiolto Respimat) albuterol sulfate 90 mcg/actuation 2 puff INHALATION Q4H PRN 01/31/21 04/03/22 01/23/22 History aerosol inhaler clopidogrel 75 mg tablet (Plavix) 75 mg PO DAILY@1100 01/31/21 04/03/22 03/14/22 History insulin aspart U-100 100 unit/mL 17 unit SUBCUT BEDTIME PRN 01/31/21 04/03/22 03/14/22 History (3 mL) subcutaneous pen (Novolog Flexpen U-100 Insulin aspart) fluticasone propionate 50 2 spray INTRANASAL DAILY PRN 03/23/21 04/03/22 03/23/21 History mcg/actuation nasal spray,suspension tamsulosin 0.4 mg capsule 0.4 mg PO BID@1100,199903/23/21 04/03/22 03/14/22 History escitalopram oxalate 10 mg tablet 5 mg PO DAILY #30 tab 04/18/21 04/03/22 03/14/22 Rx insulin glargine 100 unit/mL (3 17 unit SUBCUT BEDTIME 12/12/21 04/03/22 03/13/22 History mL) subcutaneous pen (Lantus Solostar U-100 Insulin) furosemide 20 mg tablet (Lasix) 20 mg PO QAM 01/19/22 04/03/22 03/14/22 History apixaban 5 mg tablet (Eliquis) 5 mg PO BID@0900,2100 #180 tab 02/20/22 04/03/22 03/14/22 Rx ipratropium 20 mcg-albuterol 100 1 puff INHALATION QID PRN 03/06/22 04/03/22 03/14/22 History mcg/actuation mist for inhalation multivitamin with iron-mineral 1 tab PO DAILY 03/06/22 04/03/22 03/14/22 History omeprazole 40 mg capsule,delayed 40 mg PO DAILY@11 03/06/22 04/03/22 03/14/22 History release metoprolol tartrate 25 mg tablet 12.5 mg PO BID #60 tab 03/13/22 04/03/22 03/14/22 Rx amiodarone 200 mg tablet 200 mg PO DAILY #30 tab 03/21/22 04/03/22 Unknown Rx diltiazem HCl 240 mg 240 mg PO DAILY 30 Days #30 cap 03/21/22 04/03/22 Unknown Rx capsule,extended release 24 hr Allergies Allergy/AdvReac Type Severity Reaction Status Date / Time No Known Allergies Allergy Verified 04/03/22 14:24 PFSH Acute PFSH: Medical History (Updated 04/10/22 @ 14:42 by Giovanny Joseph MD) Acute kidney injury superimposed on CKD Acute respiratory failure with hypoxia Aortic regurgitation Atrial fibrillation with slow ventricular response Benign prostatic hyperplasia CAD (coronary artery disease) Cervical disc disorder with myelopathy of mid-cervical region Chronic kidney disease, stage III (moderate) Claustrophobia Congestive heart failure with preserved left ventricular function, NYHA class 1 COPD (chronic obstructive pulmonary disease) moderate obstructive ventilatory defect, significant response to bronchodilators. Lung volumes suggestive of mild air trapping. Mild reduction in gas transfer. Coronary artery calcification CVA (cerebral vascular accident) (~01/2021) clinical diagnosis with dysarthria and confusion, unremarkable work up but unable to perform MRI due to severe claustrophobia Degenerative joint disease of left shoulder Degenerative lumbar disc Depression hospitalization 04/2021 Diabetes mellitus Facet arthropathy, lumbar Frequent UTI Hemoptysis Hepatitis C virus infection resolved after antiviral drug therapy some early cirrhosis, HCC ruled out History of DVT (deep vein thrombosis) (~12/2018) HTN (hypertension), benign Hypertension Lumbar disc disease with radiculopathy Lumbar stenosis with neurogenic claudication Mitral regurgitation Myoclonus dystonia New onset atrial fibrillation Obesity (BMI 30.0-34.9) Peripheral vascular disease Pneumonia Recurrent cystitis Thrombocytopenia 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 Pets and animals: No Current gender identity: Male Vitals/I&O/Wt Last Vital Signs Temp 97.8 F 04/10/22 12:23 Pulse 106 H 04/10/22 16:12 Resp 17 04/10/22 16:12 BP 125/89 04/10/22 16:12 Pulse Ox 95 04/10/22 16:12 Weight last 48 hrs Weight 108.862 kg Physical Exam Narrative: General: No acute distress, AO x3, on 2 L nasal cannula, below-knee amputation of left leg HEENT: PERRLA, pupils bilaterally equal and reactive Chest: Bilateral bronchial breath sounds, fine crackles present in lower zones bilaterally equal good air entry bilaterally CVS: S1-S2 irregularly irregular, tachycardia, no gallops, no rubs Abdomen: Soft, nontender, no organomegaly, bowel sounds present Neuro: No focal deficits, no facial deformity, AO x3, power 5/5 in all limbs Data : 04/10/22 13:35 04/10/22 13:35 A&P Assessment and plan (1) Atrial fibrillation with rapid ventricular response: Status: Acute (2) Congestive heart failure with preserved left ventricular function, NYHA class 1: Status: Acute (3) Mitral regurgitation: Status: Chronic Qualifiers: Cardiac valve disease etiology: etiology unspecified Qualified Code(s): I34.0 - Nonrheumatic mitral (valve) insufficiency Plan Shortness of breath secondary to acute on chronic congestive heart failure with preserved ejection fraction in setting of atrial fibrillation with rapid ventricular response: Start on Cardizem drip. Hold off on metoprolol. Continue with oral amiodarone at home dose. Also start on Cardizem 90 mg every 6 hourly. We will try to wean off Cardizem drip keeping heart rate below 100. Continuing home dose of Eliquis. IV Lasix 40 mg stat. Strict input output charting, daily weights. Fluid restriction up to 15 cc. Pneumonia less likely. No leukocytosis, chest imaging negative for any consolidation. Check procalcitonin, urine Legionella bacterial antigen. Continue other chronic home medications. Type 2 diabetes mellitus. COPD CKD. Admit to CSU. Full code. Cardiac carb consistent diet. Eliquis will suffice for DVT prophylaxis. Protonix for PUD prophylaxis. 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
[2022-04-10] MEDS: dilTIAZem 60 mg Tablet 90 MG PO ×2 (17:28→21:56)
[2022-04-10] MEDS: atorvastatin 40 mg Tablet 80 MG PO (17:28)
[2022-04-10] MEDS: FUROsemide 10 mg/mL SDV 4mL 40 MG IVP (17:28)
[2022-04-10 17:38] LABS: Procalcitonin 0.06 ng/mL (0-0.5)
[2022-04-10 18:23] LABS: Influenza A by IFA Negative (Negative); Influenza B by IFA Negative (Negative)
[2022-04-10] MEDS: levETIRAcetam 500 mg Tablet PO (20:27)
[2022-04-10] MEDS: apixaban 5 mg Tablet PO (20:27)
[2022-04-10] MEDS: tamsulosin 0.4 mg Capsule PO (20:27)
[2022-04-10] MEDS: insulin glargine 100 units/1 mL 17 UNIT SUBCUT (20:32)
[2022-04-10 20:36] LABS: Glucose Point of Care 132 mg/dL (70-110)
[2022-04-10 20:40] LABS: Add Urine Microscopic? NO; Charge for UA Resulting for Rev
[2022-04-10 20:56] LABS: Bilirubin Urine Neg (Negative); Blood Urine Neg (Negative); Glucose Urine UA Norm (Normal); Ketones Urine Negative (Negative); Nitrate Urine Negative (Negative); Protein Urine Neg (Negative); Urine Appearance Clear (CLEAR); Urine Color Straw (Yellow); pH Urine 5 (5-7)
[2022-04-10 20:57] LABS: Leukocyte Esterase Urine Negative (Negative); Urobilinogen Urine Norm (Negative)
[2022-04-10 21:01] LABS: Amphetamines Screen Urine Negative (Negative); Barbiturates Screen Urine Negative (Negative); Benzodiazepines Screen Urine Negative (Negative); Cocaine Screen Urine Negative (Negative); Opiate Screen Urine Negative (Negative); PCP Screen Urine Negative (Negative); THC Screen Urine Negative (Negative)
[2022-04-10 22:00] LABS: Troponin 5 6HR 37.56 ng/L (0-15)
[2022-04-10 22:01] LABS: Troponin 5 6HR Delta 3.56 ng/L (0-12)
[2022-04-10] MEDS: morphine 4 mg/mL SDV 1 mL 2 MG IVP (22:19)
[2022-04-11] VITALS (27 sets, daily range): BP systolic 99–158; BP diastolic 59–109; PULSE 58–124; RESP 14–28; TEMP 36.4–37; O2SAT 82–96
[2022-04-11] MEDS: dilTIAZem 60 mg Tablet 90 MG PO ×4 (04:16→22:25)
[2022-04-11] MEDS: escitalopram 10 mg Tablet 5 MG PO (09:19)
[2022-04-11] MEDS: apixaban 5 mg Tablet PO ×2 (09:19→20:47)
[2022-04-11] MEDS: amiodarone 200 mg Tablet PO (09:19)
[2022-04-11] MEDS: pantoprazole DR 40 mg Tablet PO (09:19)
[2022-04-11] MEDS: levETIRAcetam 500 mg Tablet PO ×2 (09:20→20:47)
[2022-04-11 09:32] LABS: Basophils % 0.4 %; Eosinophils # 0.1 10^3/uL (0.0-0.8); Eosinophils % 1.2 %; Hematocrit 42.5 % (42.0-52.0); Hemoglobin 11.2 g/dL (11.7-16.6); Lymphocytes # 1.5 10^3/uL (0.8-4.8); Lymphocytes % 21.9 %; Mean Corpuscular HGB Conc 26.4 g/dL (30.0-36.0); Mean Corpuscular Hemoglobin 27.9 pg (28.0-34.0); Mean Corpuscular Volume 105.7 fl (80-94); Mean Platelet Volume 11.3 fL (7.4-10.4); Monocytes # 0.6 10^3/uL (0.2-0.9); Monocytes % 8.9 %; Neutrophils # 4.53 10^3/uL (1.8-7.7); Neutrophils % 67.2 %; Nucleated Red Blood Cells % 0 %; Platelet Count 99 10^3/cmm (130-400); Red Blood Count 4.02 10^6/uL (4.1-5.3); Red Cell Distribution Width 16.1 % (12.1-15.1); White Blood Count 6.8 10^3/uL (4.0-10.0)
--- NOTE | 2022-04-11 09:35 | PC.CHAP ---
Pastoral Care Encounter/Spiritual Assessment Type of Contact [] Declined electrician manager visit [] Patient/Family/Request visit [] Outpatient visit [] Follow-up visit [] Physician referral [] Code/Alert [x] Routine visit [] Staff referral [] Actively dying [] Patient sleeping [] Family support [] [] Out of room [] Palliative care [] [x] Receiving care in room [] Pre-surgical visit [] Trauma [] Long length of stay [x] ICU visit [] Other: Relational/Emotional Strength [] Patient feels connected with others/family/visitors/staff [] Distress [] Loneliness/isolation [] Abandonment Spirituality of Patient [] Person of [place] [] Attends Jewish of their [place] [] Believes in Prayer [] Reads Bible or Restoration materials [] There are Spiritual issues to be addressed Manager Adult Interventions [x] Prayer [] Active listening [] Non-anxious presence [] Spiritual/emotional support [] Crisis/trauma care [] Spiritual counseling [] Bereavement support [] Provided bereavement packet [] Provided Bible/devotional materials [] Provided toy/stuffed animal, coloring book to patient or family member [] Provided Communion [] Anointing/[place] [] Salvation [x] Completed spiritual assessment [] Other: Impact on Illness or Injury [] Angry [] Fearful [] Anxious [] Often cries [] Exhaustion [] Unable to work [] Unable to attend church [] Unable to walk/stand [] Unable to read [] Unable to drive [] Unable to eat/drink [] Unable to sleep [] Unable to be with family [] Patient intubated [] Other: Summary Time spent with patient
[2022-04-11 09:56] LABS: Alanine Aminotransferase 23 U/L (0-41); Albumin Level 3.8 g/dL (3.5-5.2); Alkaline Phosphatase 38 IU/L (40-130); Blood Urea Nitrogen 38 mg/dL (8-23); Calcium 9.1 mg/dL (8.5-10.5); Carbon Dioxide 17 mmol/L (22-29); Chloride 103 mmol/L (98-107); Glomerular Filtration Rate 30.3 mL/min (90-130); Glucose 163 mg/dL (65-115); Osmolality Calculated 293 mOsm/kg (285-295); Sodium 135 mmol/L (136-145); Total Bilirubin 1.4 mg/dL (0.15-1.2); Total Protein 6.8 g/dL (6.6-8.7)
[2022-04-11 09:58] LABS: Anion Gap 19.8 (5-19); Aspartate Amino Transferase 30 U/L (0-40); Potassium 4.8 mmol/L (3.5-5.1)
[2022-04-11 10:06] LABS: Magnesium 2.2 mg/dL (1.7-2.3)
[2022-04-11] MEDS: FUROsemide 10 mg/mL SDV 2mL 20 MG IVP ×2 (10:28→19:02)
[2022-04-11] MEDS: clopidogrel 75 mg Tablet PO (10:28)
[2022-04-11] MEDS: ferrous sulfate EC 325 mg Tablet PO (10:28)
[2022-04-11] MEDS: tamsulosin 0.4 mg Capsule PO ×2 (10:30→20:47)
[2022-04-11 10:59] LABS: Glucose Point of Care 136 mg/dL (70-110)
[2022-04-11 13:24] LABS: Folate Level > 20.0 ng/mL (4.5-32.2)
[2022-04-11 13:49] LABS: Vitamin B12 580 pg/mL (232-1245)
[2022-04-11] MEDS: metoprolol tartrate 25 mg Tablet 12.5 MG PO ×2 (15:51→20:47)
--- NOTE | 2022-04-11 16:44 | P.PN_ITS ---
Subjective Subjective: No complaints overnight. Patient lying comfortably in bed on examination. He states he is still feeling just short of breath. Has been off Cardizem drip since last night. Heart rates have been running in high 90s to low 100s. Denies any chest pain. Vitals/I&O/Wt Last Vital Signs Temp 98.6 F 04/11/22 16:00 Pulse 106 H 04/11/22 16:00 Resp 23 H 04/11/22 16:00 BP 156/97 04/11/22 14:00 Pulse Ox 93 04/11/22 15:19 04/11/22 04/11/22 04/11/22 06:59 14:59 22:59 Intake Total 152.833 / 360.166 360 / 360 Output Total 450 / 1400 325 / 325 Balance -297.167 / -1039.834 35 / 35 Weight last 48 hrs Weight 101.378 kg Weight 108.862 kg Physical Exam Narrative: General: No acute distress, AO x3, on 2 L nasal cannula, below-knee amputation of left leg HEENT: PERRLA, pupils bilaterally equal and reactive Chest: Bilateral bronchial breath sounds, fine crackles present in lower zones bilaterally equal good air entry bilaterally CVS: S1-S2 irregularly irregular, tachycardia, no gallops, no rubs Abdomen: Soft, nontender, no organomegaly, bowel sounds present Neuro: No focal deficits, no facial deformity, AO x3, power 5/5 in all limbs Data : 04/11/22 09:17 04/11/22 09:17 A&P Assessment and plan (1) Atrial fibrillation with rapid ventricular response: Status: Acute (2) Congestive heart failure with preserved left ventricular function, NYHA class 1: Status: Acute (3) Mitral regurgitation: Status: Chronic Qualifiers: Cardiac valve disease etiology: etiology unspecified Qualified Code(s): I34.0 - Nonrheumatic mitral (valve) insufficiency Plan Shortness of breath secondary to acute on chronic congestive heart failure with preserved ejection fraction in setting of atrial fibrillation with rapid ventricular response: Heart rate better controlled. Continue with Cardizem 90 mg every 6 hour. Can restart Cardizem drip if heart rate running more than 130s. Started on metoprolol 25 mg twice daily. Continue with home dose of amiodarone. Continuing home dose of Eliquis. Repeat IV Lasix 20 mg mg stat. Strict input output charting, daily weights. Fluid restriction up to 1500 cc. Pneumonia less likely. No leukocytosis, chest imaging negative for any consolidation. Check procalcitonin, urine Legionella bacterial antigen. Hypertension: Goal blood pressure less than 140/90 mmHg. Continue with Cardizem and metoprolol as above. Given significant MR can plan to switch from losartan to low-dose Imdur. Continue other chronic home medications. Type 2 diabetes mellitus. COPD CKD. Admit to CSU. Full code. Cardiac carb consistent diet. Eliquis will suffice for DVT prophylaxis. Protonix for PUD prophylaxis. Attestations Medical Necessity Statement*: Requires further hospitalization for management of atrial fibrillation with rapid ventricular response, congestive heart failure Time Spent in Patient Care: Greater than 35 minutes Coding Level of Care Code Acute Cyber Software Engineer for [facility] Fwd Diagnoses Atrial fibrillation with rapid ventricular response I48.91 Congestive heart failure with preserved left ventricular function, NYHA class 1 I50.30 Mitral regurgitation I34.0 Cardiac valve disease etiology: etiology unspecified
[2022-04-11 17:18] LABS: Glucose Point of Care 116 mg/dL (70-110)
[2022-04-11] MEDS: ALPRAZolam 0.5 mg Tablet 0.25 MG PO (18:44)
[2022-04-11] MEDS: morphine 4 mg/mL SDV 1 mL 1 MG IVP (18:44)
[2022-04-11] MEDS: atorvastatin 40 mg Tablet 80 MG PO (19:02)
--- NOTE | 2022-04-11 19:21 | PC.NURSE ---
Patient setting up in bed panting O2 saturations 93% provider notified instructed to give xanax 0.25 PO x 1 and morpine 1 Mg IVP called provider back with patient complaints of neck pain and lungs sounds instructions to give 20mg laxis IVp patient breathing a little easier after interventions
[2022-04-11] MEDS: budesonide 0.5 mg/2 mL Neb INHALATION (20:07)
[2022-04-11] MEDS: levalbuterol 0.63 mg/3 mL Neb INHALATION (20:07)
[2022-04-11] MEDS: ipratropium 0.5 mg/2.5 mL Neb INHALATION (20:07)
[2022-04-11 20:18] LABS: Glucose Point of Care 155 mg/dL (70-110)
[2022-04-11] MEDS: insulin lispro 100 unit/1 mL SUBCUT (20:45)
[2022-04-11] MEDS: insulin glargine 100 units/1 mL 17 UNIT SUBCUT (20:46)
[2022-04-12] VITALS (35 sets, daily range): BP systolic 89–153; BP diastolic 51–118; PULSE 58–140; RESP 6–28; TEMP 36.6–36.8; O2SAT 84–100
[2022-04-12] MEDS: dilTIAZem 60 mg Tablet 90 MG PO ×3 (05:34→17:35)
[2022-04-12 06:58] LABS: Basophils % 0.2 %; Eosinophils # 0.1 10^3/uL (0.0-0.8); Eosinophils % 1.1 %; Hematocrit 31.8 % (42.0-52.0); Hemoglobin 9.8 g/dL (11.7-16.6); Lymphocytes # 1.5 10^3/uL (0.8-4.8); Lymphocytes % 23.4 %; Mean Corpuscular HGB Conc 30.8 g/dL (30.0-36.0); Mean Corpuscular Hemoglobin 28.7 pg (28.0-34.0); Mean Corpuscular Volume 93.3 fl (80-94); Mean Platelet Volume 10.8 fL (7.4-10.4); Monocytes # 0.5 10^3/uL (0.2-0.9); Monocytes % 8.4 %; Neutrophils # 4.24 10^3/uL (1.8-7.7); Neutrophils % 66.3 %; Nucleated Red Blood Cells % 0 %; Platelet Count 95 10^3/cmm (130-400); Red Blood Count 3.41 10^6/uL (4.1-5.3); Red Cell Distribution Width 16.3 % (12.1-15.1); White Blood Count 6.4 10^3/uL (4.0-10.0)
[2022-04-12 07:18] LABS: Alanine Aminotransferase 19 U/L (0-41); Albumin Level 3.5 g/dL (3.5-5.2); Alkaline Phosphatase 37 IU/L (40-130); Aspartate Amino Transferase 22 U/L (0-40); Blood Urea Nitrogen 40 mg/dL (8-23); Calcium 8.7 mg/dL (8.5-10.5); Carbon Dioxide 20 mmol/L (22-29); Chloride 99 mmol/L (98-107); Globulin 2.8 g/dL (1.3-4.6); Glucose 115 mg/dL (65-115); Osmolality Calculated 289 mOsm/kg (285-295); Sodium 134 mmol/L (136-145); Total Bilirubin 1.8 mg/dL (0.15-1.2); Total Protein 6.3 g/dL (6.6-8.7)
[2022-04-12 07:20] LABS: Anion Gap 19.3 (5-19); Potassium 4.3 mmol/L (3.5-5.1)
--- NOTE | 2022-04-12 07:25 | PC.NURSE ---
received report, reviewed poc and assumed care of patient. no needs identified at this time.
[2022-04-12] MEDS: ipratropium 0.5 mg/2.5 mL Neb INHALATION ×3 (08:21→20:00)
[2022-04-12] MEDS: levalbuterol 0.63 mg/3 mL Neb INHALATION ×3 (08:21→20:00)
[2022-04-12] MEDS: budesonide 0.5 mg/2 mL Neb INHALATION ×2 (08:21→19:58)
[2022-04-12] MEDS: levETIRAcetam 500 mg Tablet PO ×2 (09:01→21:56)
[2022-04-12] MEDS: escitalopram 10 mg Tablet 5 MG PO (09:01)
[2022-04-12] MEDS: amiodarone 200 mg Tablet PO (09:01)
[2022-04-12] MEDS: pantoprazole DR 40 mg Tablet PO (09:01)
[2022-04-12] MEDS: acetaminophen 325 mg Tablet 650 MG PO (09:01)
[2022-04-12] MEDS: metoprolol tartrate 25 mg Tablet 12.5 MG PO ×2 (09:02→21:56)
[2022-04-12] MEDS: apixaban 5 mg Tablet PO ×2 (09:02→21:55)
--- NOTE | 2022-04-12 10:26 | PC.CHAP ---
Pastoral Care Encounter/Spiritual Assessment Type of Contact [] Declined friction welding machine operator visit [] Patient/Family/Request visit [] Outpatient visit [] Follow-up visit [] Physician referral [] Code/Alert [x] Routine visit [] Staff referral [] Actively dying [x] Patient sleeping [] Family support [] [] Out of room [] Palliative care [] [] Receiving care in room [] Pre-surgical visit [] Trauma [] Long length of stay [x] ICU visit [] Other: Relational/Emotional Strength [] Patient feels connected with others/family/visitors/staff [] Distress [] Loneliness/isolation [] Abandonment Spirituality of Patient [] Person of [place] [] Attends Nondenominational of their [place] [] Believes in Prayer [] Reads Bible or Mosque materials [] There are Spiritual issues to be addressed Interventional Radiology Tech Interventions [x] Prayer [] Active listening [] Non-anxious presence [] Spiritual/emotional support [] Crisis/trauma care [] Spiritual counseling [] Bereavement support [] Provided bereavement packet [] Provided Bible/devotional materials [] Provided toy/stuffed animal, coloring book to patient or family member [] Provided Communion [] Anointing/[place] [] Salvation [x] Completed spiritual assessment [] Other: Impact on Illness or Injury [] Angry [] Fearful [] Anxious [] Often cries [] Exhaustion [] Unable to work [] Unable to attend protestant [] Unable to walk/stand [] Unable to read [] Unable to drive [] Unable to eat/drink [] Unable to sleep [] Unable to be with family [] Patient intubated [] Other: Summary Time spent with patient
[2022-04-12] MEDS: clopidogrel 75 mg Tablet PO (11:52)
[2022-04-12] MEDS: ferrous sulfate EC 325 mg Tablet PO (11:52)
[2022-04-12] MEDS: tamsulosin 0.4 mg Capsule PO ×2 (11:52→21:56)
--- NOTE | 2022-04-12 12:21 | PC.NURSE ---
dr watson informed that patient is requesting pain pills and steroids for generalized pain and to make his breathing better. I did not receive any new orders at this time.
[2022-04-12 12:33] LABS: Glucose Point of Care 123 mg/dL (70-110)
[2022-04-12] MEDS: ipratropium-albuterol 3 mL Neb INHALATION (14:06)
[2022-04-12] MEDS: morphine 4 mg/mL SDV 1 mL 2 MG IVP (14:40)
--- NOTE | 2022-04-12 14:47 | PC.NURSE ---
pts 02 sat in the mid 80's, pt appears ashen, and sob. increased nc to 6l. Dr Nova notified via phone. no new orders at this time. Pt given the prn morphine ordered for sob. prn rt treatment just given. continuing to monitor
[2022-04-12] MEDS: FUROsemide 10 mg/mL SDV 4mL 40 MG IVP (15:29)
--- NOTE | 2022-04-12 16:02 | P.PN_ITS ---
Subjective Subjective: Seen multiple times during the day. Today morning examination patient states he did well. Had a good night. He went to sleep. Heart rate was well controlled. As the day progressed patient had difficulty in breathing again. Had more episodes of difficulty in breathing at around 3 PM with saturations dropping to high 80s on 4 L and patient having difficulty in breathing. Heart rate during that time remained controlled. Vitals/I&O/Wt Last Vital Signs Temp 98.2 F 04/12/22 11:00 Pulse 73 04/12/22 14:09 Resp 24 H 04/12/22 14:40 BP 101/70 04/12/22 14:00 Pulse Ox 97 04/12/22 14:06 04/12/22 04/12/22 04/12/22 06:59 14:59 22:59 Output Total 400 / 925 Balance -400 / -565 Weight last 48 hrs Weight 105.233 kg Weight 101.378 kg Physical Exam Narrative: General: No acute distress, AO x3, on 2 L nasal cannula, below-knee amputation of left leg HEENT: PERRLA, pupils bilaterally equal and reactive Chest: Bilateral bronchial breath sounds, fine crackles present in lower zones bilaterally equal good air entry bilaterally CVS: S1-S2 irregularly irregular, tachycardia, no gallops, no rubs Abdomen: Soft, nontender, no organomegaly, bowel sounds present Neuro: No focal deficits, no facial deformity, AO x3, power 5/5 in all limbs Data : 04/12/22 06:13 04/12/22 06:13 A&P Assessment and plan (1) Atrial fibrillation with rapid ventricular response: Status: Acute (2) Congestive heart failure with preserved left ventricular function, NYHA class 1: Status: Acute (3) Mitral regurgitation: Status: Chronic Qualifiers: Cardiac valve disease etiology: etiology unspecified Qualified Code(s): I34.0 - Nonrheumatic mitral (valve) insufficiency Plan Shortness of breath secondary to acute on chronic congestive heart failure with preserved ejection fraction in setting of atrial fibrillation with rapid ventricular response: Heart rate better controlled. Continue with Cardizem 90 mg every 6 hour, amiodarone 200 mg daily, metoprolol 12.5 mg twice daily. Continuing home dose of Eliquis. Recent echocardiogram showed an EF 55 to 60%, moderate MR. Lasix 40 mg IV twice daily. Did receive oral Lasix in the morning. Strict input output charting, daily weights. Fluid restriction up to 1500 cc. Pneumonia less likely. No leukocytosis, chest imaging negative for any consolidation. Check procalcitonin, urine Legionella bacterial antigen. Hypertension: Goal blood pressure less than 140/90 mmHg. Continue with Cardizem and metoprolol as above. Given significant MR can plan to switch from losartan to low-dose Imdur if blood pressure permits. Continue other chronic home medications. Cannot rule out undiagnosed sleep apnea. Type 2 diabetes mellitus. COPD CKD. Full code. Cardiac carb consistent diet. Eliquis will suffice for DVT prophylaxis. Protonix for PUD prophylaxis. Attestations Medical Necessity Statement*: Requires further hospitalization for management of atrial fibrillation, congestive heart failure Time Spent in Patient Care: Greater than 35 minutes Coding Level of Care Code Acute Elder Counselor for [facility] Fwd Diagnoses Atrial fibrillation with rapid ventricular response I48.91 Congestive heart failure with preserved left ventricular function, NYHA class 1 I50.30 Mitral regurgitation I34.0 Cardiac valve disease etiology: etiology unspecified
[2022-04-12] MEDS: atorvastatin 40 mg Tablet 80 MG PO (17:35)
[2022-04-12 17:43] LABS: Glucose Point of Care 138 mg/dL (70-110)
[2022-04-12] MEDS: dilTIAZem 30 mg Tablet 90 MG PO (21:55)
[2022-04-12] MEDS: insulin glargine 100 units/1 mL 17 UNIT SUBCUT (21:55)
[2022-04-12 22:02] LABS: Glucose Point of Care 131 mg/dL (70-110)
[2022-04-13] VITALS (26 sets, daily range): BP systolic 96–138; BP diastolic 60–97; PULSE 74–132; RESP 16–27; TEMP 36.6–36.8; O2SAT 73–100
[2022-04-13] MEDS: levalbuterol 0.63 mg/3 mL Neb INHALATION ×4 (03:00→20:41)
--- NOTE | 2022-04-13 04:52 | PC.NURSE ---
Pt. states his bottom is sore. Instructed patient to roll side to side to alleviate his soreness. States that he cannot. Pt. is able to sit up to side of bed and use urinal by his self. Instructed patient on this and that he needs to roll side to side since he is able. Patient then refused.
[2022-04-13] MEDS: dilTIAZem 30 mg Tablet 90 MG PO ×4 (05:07→20:05)
[2022-04-13] MEDS: FUROsemide 10 mg/mL SDV 4mL 40 MG IVP (06:33)
[2022-04-13 07:22] LABS: Basophils % 0.4 %; Eosinophils # 0.1 10^3/uL (0.0-0.8); Eosinophils % 0.6 %; Hematocrit 35.5 % (42.0-52.0); Hemoglobin 10.7 g/dL (11.7-16.6); Lymphocytes # 2.2 10^3/uL (0.8-4.8); Lymphocytes % 25.7 %; Mean Corpuscular HGB Conc 30.1 g/dL (30.0-36.0); Mean Corpuscular Volume 92.9 fl (80-94); Mean Platelet Volume 11.6 fL (7.4-10.4); Monocytes # 0.8 10^3/uL (0.2-0.9); Monocytes % 9.7 %; Neutrophils # 5.28 10^3/uL (1.8-7.7); Neutrophils % 62.7 %; Nucleated Red Blood Cells % 0 %; Platelet Count 88 10^3/cmm (130-400); Red Blood Count 3.82 10^6/uL (4.1-5.3); Red Cell Distribution Width 16.2 % (12.1-15.1); White Blood Count 8.4 10^3/uL (4.0-10.0)
[2022-04-13 07:35] LABS: Glucose Point of Care 115 mg/dL (70-110)
[2022-04-13 07:53] LABS: Alanine Aminotransferase 19 U/L (0-41); Albumin Level 3.8 g/dL (3.5-5.2); Alkaline Phosphatase 41 IU/L (40-130); Blood Urea Nitrogen 49 mg/dL (8-23); Calcium 8.7 mg/dL (8.5-10.5); Carbon Dioxide 21 mmol/L (22-29); Chloride 99 mmol/L (98-107); Globulin 2.5 g/dL (1.3-4.6); Glomerular Filtration Rate 21.2 mL/min (90-130); Glucose 118 mg/dL (65-115); Osmolality Calculated 298 mOsm/kg (285-295); Sodium 137 mmol/L (136-145); Total Bilirubin 2.2 mg/dL (0.15-1.2); Total Protein 6.3 g/dL (6.6-8.7)
[2022-04-13 07:54] LABS: Anion Gap 21.4 (5-19); Aspartate Amino Transferase 25 U/L (0-40); Potassium 4.4 mmol/L (3.5-5.1)
--- NOTE | 2022-04-13 08:04 | XRR_ITS ---
PROCEDURE INFORMATION: Exam: XR Chest Exam date and time: 04/13/2022 8:09 AM Age: 66 years old Clinical indication: Condition or disease; Other: Chf; Shortness of breath; Prior surgery; Surgery type: Stents TECHNIQUE: Imaging protocol: XR of the chest. Views: 1 view. COMPARISON: CR (CHEST, ) 04/10/2022 12:48 PM FINDINGS: Lungs: There is increasing bibasilar opacity which may be due to worsening lower lobe pneumonia or atelectasis. Pleural spaces: Unremarkable. No pleural effusion. No pneumothorax. Heart/Mediastinum: The cardiac silhouette is normal for the AP projection. Bones/joints: Unremarkable. XR/XR chest 1V portable 10099 IMPRESSION: Increasing bibasilar opacity consistent with worsening lower lobe pneumonia or atelectasis.
[2022-04-13] MEDS: clopidogrel 75 mg Tablet PO (08:10)
[2022-04-13] MEDS: pantoprazole DR 40 mg Tablet PO (08:10)
[2022-04-13] MEDS: amiodarone 200 mg Tablet PO (08:10)
[2022-04-13] MEDS: metoprolol tartrate 25 mg Tablet 12.5 MG PO ×2 (08:10→20:05)
[2022-04-13] MEDS: levETIRAcetam 500 mg Tablet PO ×2 (08:10→20:06)
[2022-04-13] MEDS: escitalopram 10 mg Tablet 5 MG PO (08:11)
[2022-04-13] MEDS: apixaban 5 mg Tablet PO ×2 (08:11→20:09)
[2022-04-13] MEDS: budesonide 0.5 mg/2 mL Neb INHALATION ×2 (09:01→20:41)
[2022-04-13] MEDS: ipratropium 0.5 mg/2.5 mL Neb INHALATION ×3 (09:02→20:41)
[2022-04-13 09:06] LABS: NT Pro B Type Natriuretic Pept 3332 pg/mL (0-125)
[2022-04-13] MEDS: tamsulosin 0.4 mg Capsule PO ×2 (11:00→20:05)
[2022-04-13] MEDS: ferrous sulfate EC 325 mg Tablet PO (11:00)
[2022-04-13] MEDS: insulin lispro 100 unit/1 mL SUBCUT (11:30)
[2022-04-13 11:33] LABS: Glucose Point of Care 189 mg/dL (70-110)
--- NOTE | 2022-04-13 14:15 | PC.NURSE ---
pt c/o sob.no change in breath sounds.o2 sat 96%.placed back on bipap.
--- NOTE | 2022-04-13 14:38 | PM.PN ---
Subjective Subjective: Seen multiple times daily. Today morning on examination patient was laying uncomfortably in bed. Stated he had a good night. Was able to sleep. During the day again patient started having difficulty in breathing after lunch. Patient was not noted to have any cough while eating. Has remained afebrile. Heart rate has remained controlled. Patient was placed on BiPAP at this time while having difficulty in breathing which helped him a lot as per him. Vitals/I&O/Wt Last Vital Signs Temp 98.1 F 04/13/22 04:00 Pulse 80 04/13/22 14:07 Resp 20 H 04/13/22 14:07 BP 105/78 04/13/22 12:00 Pulse Ox 92 04/13/22 14:07 04/12/22 04/13/22 04/13/22 22:59 06:59 14:59 Intake Total 39.834 / 39.834 480 / 480 Output Total 350 / 350 200 / 550 700 / 700 Balance -310.166 / -310.166 -200 / -510.166 -220 / -220 Weight last 48 hrs Weight 102.965 kg Weight 105.233 kg Physical Exam Narrative: General: No acute distress, AO x3, on 2 L nasal cannula, below-knee amputation of left leg HEENT: PERRLA, pupils bilaterally equal and reactive Chest: Bilateral bronchial breath sounds, fine crackles present in lower zones bilaterally equal good air entry bilaterally CVS: S1-S2 irregularly irregular, tachycardia, no gallops, no rubs Abdomen: Soft, nontender, no organomegaly, bowel sounds present Neuro: No focal deficits, no facial deformity, AO x3, power 5/5 in all limbs Data : 04/13/22 06:54 04/13/22 06:54 A&P Assessment and plan (1) Atrial fibrillation with rapid ventricular response: Status: Acute (2) Congestive heart failure with preserved left ventricular function, NYHA class 1: Status: Acute (3) Mitral regurgitation: Status: Chronic Qualifiers: Cardiac valve disease etiology: etiology unspecified Qualified Code(s): I34.0 - Nonrheumatic mitral (valve) insufficiency Plan Shortness of breath secondary to acute on chronic congestive heart failure with preserved ejection fraction in setting of atrial fibrillation with rapid ventricular response: Heart rate better controlled. Continue with Cardizem 90 mg every 6 hour, amiodarone 200 mg daily, metoprolol 12.5 mg twice daily. Continuing home dose of Eliquis. Recent echocardiogram showed an EF 55 to 60%, moderate MR. Lasix 40 mg IV twice daily. We will switch to oral Lasix 40 mg twice daily from tomorrow. Creatinine slightly trending up we will continue to monitor. Strict input output charting, daily weights. Fluid restriction up to 1500 cc. Pneumonia less likely. No leukocytosis, chest imaging negative for any consolidation. Check procalcitonin, urine Legionella bacterial antigen. Cannot rule out underlying sleep apnea. Will do overnight pulse oximetry. BiPAP nightly or whenever resting for now. Hypertension: Goal blood pressure less than 140/90 mmHg. Continue with Cardizem and metoprolol as above. Given significant MR can plan to switch from losartan to low-dose Imdur if blood pressure permits. Type 2 diabetes mellitus. COPD CKD. Full code. Cardiac carb consistent diet. Eliquis will suffice for DVT prophylaxis. Protonix for PUD prophylaxis. Attestations Medical Necessity Statement*: Requires further hospitalisation for hypoxia secondary to congestive heart failure with preserved ejection fraction, possible sleep apnea Time Spent in Patient Care: Greater than 35 minutes Coding Level of Care Code Acute Residential Director for [facility] Fwd Diagnoses Atrial fibrillation with rapid ventricular response I48.91 Congestive heart failure with preserved left ventricular function, NYHA class 1 I50.30 Mitral regurgitation I34.0 Cardiac valve disease etiology: etiology unspecified
[2022-04-13] MEDS: ALPRAZolam 0.5 mg Tablet PO (15:26)
[2022-04-13] MEDS: FUROsemide 40 mg Tablet PO (15:59)
[2022-04-13 17:19] LABS: Glucose Point of Care 120 mg/dL (70-110)
[2022-04-13] MEDS: atorvastatin 40 mg Tablet 80 MG PO (18:01)
[2022-04-13 20:00] LABS: Glucose Point of Care 167 mg/dL (70-110)
[2022-04-13] MEDS: insulin glargine 100 units/1 mL 17 UNIT SUBCUT (20:09)
[2022-04-14] VITALS (27 sets, daily range): BP systolic 92–168; BP diastolic 61–85; PULSE 64–115; RESP 12–29; TEMP 36.2–37.1; O2SAT 87–98
[2022-04-14] MEDS: dilTIAZem 30 mg Tablet 90 MG PO ×4 (02:00→21:06)
[2022-04-14] MEDS: ALPRAZolam 0.5 mg Tablet PO ×2 (02:00→12:17)
[2022-04-14] MEDS: ipratropium-albuterol 3 mL Neb INHALATION (03:10)
[2022-04-14] MEDS: levalbuterol 0.63 mg/3 mL Neb INHALATION ×4 (03:18→20:03)
[2022-04-14 07:25] LABS: Glucose Point of Care 136 mg/dL (70-110)
[2022-04-14] MEDS: escitalopram 10 mg Tablet PO (08:49)
[2022-04-14] MEDS: bisacodyl 5 mg Tablet 10 MG PO (08:49)
[2022-04-14] MEDS: pantoprazole DR 40 mg Tablet PO (08:49)
[2022-04-14] MEDS: apixaban 5 mg Tablet PO ×2 (08:49→20:52)
[2022-04-14] MEDS: amiodarone 200 mg Tablet PO (08:49)
[2022-04-14] MEDS: metoprolol tartrate 25 mg Tablet 12.5 MG PO (08:49)
[2022-04-14] MEDS: FUROsemide 40 mg Tablet PO ×2 (08:50→15:31)
[2022-04-14] MEDS: levETIRAcetam 500 mg Tablet PO ×2 (08:51→20:52)
--- NOTE | 2022-04-14 09:24 | PC.CHAP ---
Pastoral Care Encounter/Spiritual Assessment Type of Contact [] Declined carton waxing machine operator visit [] Patient/Family/Request visit [] Outpatient visit [] Follow-up visit [] Physician referral [] Code/Alert [x] Routine visit [] Staff referral [] Actively dying [] Patient sleeping [] Family support [] [] Out of room [] Palliative care [] [] Receiving care in room [] Pre-surgical visit [] Trauma [] Long length of stay [x] ICU visit [x] Other: oxg mask Relational/Emotional Strength [] Patient feels connected with others/family/visitors/staff [] Distress [] Loneliness/isolation [] Abandonment Spirituality of Patient [] Person of [place] [] Attends Pentecostal of their [place] [] Believes in Prayer [] Reads Bible or Amish materials [] There are Spiritual issues to be addressed Herbicide Sprayer Interventions [x] Prayer [] Active listening [] Non-anxious presence [] Spiritual/emotional support [] Crisis/trauma care [] Spiritual counseling [] Bereavement support [] Provided bereavement packet [] Provided Bible/devotional materials [] Provided toy/stuffed animal, coloring book to patient or family member [] Provided Communion [] Anointing/[place] [] Salvation [x] Completed spiritual assessment [] Other: Impact on Illness or Injury [] Angry [] Fearful [] Anxious [] Often cries [] Exhaustion [] Unable to work [] Unable to attend faith [] Unable to walk/stand [] Unable to read [] Unable to drive [] Unable to eat/drink [] Unable to sleep [] Unable to be with family [] Patient intubated [] Other: Summary Time spent with patient
[2022-04-14] MEDS: ipratropium 0.5 mg/2.5 mL Neb INHALATION ×3 (09:45→20:03)
[2022-04-14] MEDS: budesonide 0.5 mg/2 mL Neb INHALATION ×2 (09:45→20:03)
[2022-04-14 11:20] LABS: Glucose Point of Care 150 mg/dL (70-110)
[2022-04-14] MEDS: tamsulosin 0.4 mg Capsule PO ×2 (12:16→19:27)
[2022-04-14] MEDS: clopidogrel 75 mg Tablet PO (12:17)
[2022-04-14] MEDS: ferrous sulfate EC 325 mg Tablet PO (12:17)
[2022-04-14] MEDS: insulin lispro 100 unit/1 mL SUBCUT ×2 (13:02→21:05)
--- NOTE | 2022-04-14 14:30 | P.PN_ITS ---
Subjective Subjective: No acute events overnight. Overnight patient remained on BiPAP. He underwent overnight pulse oximetry study which qualified him for BiPAP. He remains hemodynamically stable and afebrile. Heart rate has remained less than 100. States today morning feeling little better but still having occasional episodes of anxiety and difficulty in breathing. Vitals/I&O/Wt Last Vital Signs Temp 97.2 F L 04/14/22 12:00 Pulse 99 04/14/22 14:11 Resp 20 H 04/14/22 14:11 BP 108/82 04/14/22 13:00 Pulse Ox 98 04/14/22 14:11 04/13/22 04/14/22 04/14/22 22:59 06:59 14:59 Intake Total 240 / 720 600 / 600 Output Total 675 / 1375 775 / 2150 580 / 580 Balance -435 / -655 -775 / -1430 20 / 20 Weight last 48 hrs Weight 102.965 kg Weight 102.965 kg Physical Exam Narrative: General: No acute distress, AO x3, on 2 L nasal cannula, below-knee amputation of left leg HEENT: PERRLA, pupils bilaterally equal and reactive Chest: Bilateral bronchial breath sounds, fine crackles present in lower zones bilaterally equal good air entry bilaterally CVS: S1-S2 irregularly irregular, tachycardia, no gallops, no rubs Abdomen: Soft, nontender, no organomegaly, bowel sounds present Neuro: No focal deficits, no facial deformity, AO x3, power 5/5 in all limbs Data : 04/13/22 06:54 04/15/22 04:43 A&P Assessment and plan (1) Atrial fibrillation with rapid ventricular response: Status: Acute (2) Congestive heart failure with preserved left ventricular function, NYHA class 1: Status: Acute (3) Mitral regurgitation: Status: Chronic Qualifiers: Cardiac valve disease etiology: etiology unspecified Qualified Code(s): I34.0 - Nonrheumatic mitral (valve) insufficiency Plan Shortness of breath secondary to acute on chronic congestive heart failure with preserved ejection fraction in setting of atrial fibrillation with rapid ventricular response: Heart rate better controlled. Continue with Cardizem 90 mg every 6 hour, amiodarone 200 mg daily, metoprolol 12.5 mg twice daily. Continuing home dose of Eliquis. Recent echocardiogram showed an EF 55 to 60%, moderate MR. Lasix 40 mg IV twice daily. We will switch to oral Lasix 40 mg twice daily from tomorrow. Creatinine slightly trending up we will continue to monitor. Strict input output charting, daily weights. Fluid restriction up to 1500 cc. Pneumonia less likely. No leukocytosis, chest imaging negative for any consolidation. Check procalcitonin, urine Legionella bacterial antigen. Cannot rule out underlying sleep apnea. Will do overnight pulse oximetry. BiPAP nightly or whenever resting for now. Hypertension: Goal blood pressure less than 140/90 mmHg. Continue with Cardizem and metoprolol as above. Given significant MR can plan to switch from losartan to low-dose Imdur if blood pressure permits. Type 2 diabetes mellitus. COPD CKD. Full code. Cardiac carb consistent diet. Eliquis will suffice for DVT prophylaxis. Protonix for PUD prophylaxis. Plan for day: Continue Lasix 40 mg twice daily, nasal cannula oxygen supplementation keeping saturation over 88%. BiPAP when resting. Start on prednisone 40 mg daily after Solu-Medrol 60 mg 1 dose. Doxycycline 100 mg twice daily. Care discussed in detail with pulmonology on-call. Would like to follow-up with him as an outpatient within next 1 week. Care discussed with case management. Working on BiPAP arrangement as an outpat ient. Attestations Medical Necessity Statement*: Requires further hospitalization for management of congestive heart failure in setting of atrial fibrillation, possible sleep apnea while discharge planning is sought and BiPAP is arranged for outpatient use Time Spent in Patient Care: Greater than 35 minutes Coding Level of Care Code Acute Human Resources Project Manager for [facility] Chava Diagnoses Atrial fibrillation with rapid ventricular response I48.91 Congestive heart failure with preserved left ventricular function, NYHA class 1 I50.30 Mitral regurgitation I34.0 Cardiac valve disease etiology: etiology unspecified
[2022-04-14] MEDS: predniSONE 20 mg Tablet 40 MG PO (15:30)
[2022-04-14] MEDS: isosorbide mononitrate ER 30 mg Tablet 15 MG PO (15:30)
[2022-04-14 15:40] LABS: Alanine Aminotransferase 18 U/L (0-41); Albumin Level 3.8 g/dL (3.5-5.2); Alkaline Phosphatase 40 IU/L (40-130); Blood Urea Nitrogen 56 mg/dL (8-23); Calcium 8.9 mg/dL (8.5-10.5); Carbon Dioxide 18 mmol/L (22-29); Chloride 97 mmol/L (98-107); Globulin 2.3 g/dL (1.3-4.6); Glucose 137 mg/dL (65-115); Osmolality Calculated 298 mOsm/kg (285-295); Sodium 135 mmol/L (136-145); Total Bilirubin 1.7 mg/dL (0.15-1.2); Total Protein 6.1 g/dL (6.6-8.7)
[2022-04-14 15:47] LABS: Aspartate Amino Transferase 29 U/L (0-40)
[2022-04-14 17:34] LABS: Glucose Point of Care 125 mg/dL (70-110)
[2022-04-14] MEDS: doxycycline 100 mg Tablet PO (17:54)
[2022-04-14] MEDS: atorvastatin 40 mg Tablet 80 MG PO (17:54)
[2022-04-14] MEDS: metoprolol tartrate 25 mg Tablet PO (20:52)
[2022-04-14 21:00] LABS: Glucose Point of Care 197 mg/dL (70-110)
[2022-04-14] MEDS: insulin glargine 100 units/1 mL 17 UNIT SUBCUT (21:06)
--- NOTE | 2022-04-14 23:49 | PHA.FALL ---
A Pharmacy Consult Was Conducted For Jeffrey Brown Due To: Hauser Fall Scale Risk Level: High Fall Risk On 04/14/22 20:00 And A Medication Fall Risk Score Greater Than 10. The Recommendations Are As Follows: Alprazolam PIPE: 1,2,3,4,5,6,8,10 Amiodarone PIPE: 1,3,4,7,9,10 Diltiazem PIPE: 1,3,4,5,7,9,10 Escitalopram PIPE:1,3,4,7,8,10 Furosemide PIPE:3,4 Metoprolol PIPE: 1,2,3,4,5,9,10 Morphine PIPE: 1,2,3,4,5,6,7,8,9,10 Levetiracetam PIPE: 1,3,4,5,6,7,8,10 Medications which cause/contribute to: 1. sedation/fatigue/lethargy 2. decreased alertness 3. postural/orthostatic hypotension 4. dizziness 5. decreased neuromuscular function/ataxia 6. decreased memory/cognitive impairment 7. blurred vision 8. confusion 9. arrhythmias 10. syncope 11. anemia thank you, Dilcia Pate [facility]
[2022-04-15] VITALS (35 sets, daily range): BP systolic 93–137; BP diastolic 58–93; PULSE 62–126; RESP 10–27; TEMP 36.5–37; O2SAT 94–100; BMI 31.3
[2022-04-15] MEDS: levalbuterol 0.63 mg/3 mL Neb INHALATION ×2 (02:57→08:09)
[2022-04-15] MEDS: dilTIAZem 30 mg Tablet 90 MG PO ×2 (03:32→09:04)
[2022-04-15] MEDS: ALPRAZolam 0.5 mg Tablet PO ×2 (03:32→10:10)
[2022-04-15 05:23] LABS: Albumin Level 3.8 g/dL (3.5-5.2); Alkaline Phosphatase 42 IU/L (40-130); Blood Urea Nitrogen 55 mg/dL (8-23); Calcium 8.9 mg/dL (8.5-10.5); Carbon Dioxide 18 mmol/L (22-29); Chloride 97 mmol/L (98-107); Globulin 2.6 g/dL (1.3-4.6); Glucose 198 mg/dL (65-115); Osmolality Calculated 299 mOsm/kg (285-295); Sodium 134 mmol/L (136-145); Total Bilirubin 1.4 mg/dL (0.15-1.2); Total Protein 6.4 g/dL (6.6-8.7)
[2022-04-15 05:32] LABS: Alanine Aminotransferase 22 U/L (0-41); Anion Gap 24.2 (5-19); Aspartate Amino Transferase 38 U/L (0-40); Potassium 5.2 mmol/L (3.5-5.1)
--- NOTE | 2022-04-15 06:17 | PC.NURSE ---
Bipap/Nasal Cannula Patient complaining of shortness of breath throughout night, stating I can't breathe and asking to change from nasal cannula 3L to Bipap at 30% FIO2 back and forth. Patient's oxygen saturation remaining >90, RR ranging from 13 to mid 20s with no change in color. Respiratory therapist aware. Xanax administered for anxiety, see MAR for details.
[2022-04-15] MEDS: insulin lispro 100 unit/1 mL SUBCUT ×2 (07:48→11:45)
[2022-04-15] MEDS: FUROsemide 40 mg Tablet PO (07:50)
[2022-04-15 07:53] LABS: Glucose Point of Care 184 mg/dL (70-110)
[2022-04-15] MEDS: ipratropium 0.5 mg/2.5 mL Neb INHALATION (08:09)
[2022-04-15] MEDS: budesonide 0.5 mg/2 mL Neb INHALATION (08:09)
[2022-04-15] MEDS: escitalopram 10 mg Tablet PO (08:22)
[2022-04-15] MEDS: metoprolol tartrate 25 mg Tablet PO (08:23)
[2022-04-15] MEDS: isosorbide mononitrate ER 30 mg Tablet 15 MG PO (08:23)
[2022-04-15] MEDS: apixaban 5 mg Tablet PO (08:23)
[2022-04-15] MEDS: levETIRAcetam 500 mg Tablet PO (08:23)
[2022-04-15] MEDS: predniSONE 20 mg Tablet 40 MG PO (08:23)
[2022-04-15] MEDS: pantoprazole DR 40 mg Tablet PO (08:23)
[2022-04-15] MEDS: amiodarone 200 mg Tablet PO (08:23)
[2022-04-15] MEDS: doxycycline 100 mg Tablet PO (08:23)
[2022-04-15] MEDS: ferrous sulfate EC 325 mg Tablet PO (10:10)
[2022-04-15] MEDS: clopidogrel 75 mg Tablet PO (10:10)
[2022-04-15] MEDS: tamsulosin 0.4 mg Capsule PO (11:45)
--- NOTE | 2022-04-15 12:07 | PM.DCS ---
Discharge Providers Date of Admission: 04/10/22 14:42 Date of Discharge: April 15, 2022 Attending Provider at Admission: Sujit Zhang MD Attending Provider at Discharge: Sujit Zhang MD Primary Care Provider: Fer Musa DO Diagnoses at Discharge Discharge Diagnosis (1) Atrial fibrillation with rapid ventricular response: Status: Acute (2) Congestive heart failure with preserved left ventricular function, NYHA class 1: Status: Acute (3) Mitral regurgitation: Status: Chronic Qualifiers: Cardiac valve disease etiology: etiology unspecified Qualified Code(s): I34.0 - Nonrheumatic mitral (valve) insufficiency Reason for Visit Reason for Visit: SOB/ ABDOMINAL PAIN Hospital Course Hospital Course Jeffrey Brown is a 66 year old male with past medical history of aortic regurgitation, CAD, CKD stage III, COPD, CVA, type 2 diabetes mellitus, COPD, hypertension, mitral regurgitation, afib on eliquis came to the ER today with shortness of breath getting worse over last 3 to 4 days.? Patient states he is never been back to his baseline since discharge.? He denies of having any fever, nausea vomiting, dizziness, diarrhea. Patient was recently in hospital from 03/14-03/21 when he was treated for Klebsiella pneumonia.? During that hospitalization his stay was complicated by him developing congestive heart failure for which he was managed in ICU with noninvasive ventilation.? On review of chart he was discharged off Lasix on lower dose of Cardizem 240 mg daily, metoprolol 12.5 mg twice daily and amiodarone 200 mg daily.? Patient states he has been taking his medications regularly.? In between he was seen by Selena Vasquez from cardiology when his oral Lasix were resumed. In the ER today he was found to be in atrial fibrillation with rapid ventricular response.? He was given 50 mg of IV Cardizem in divided doses and hospital service was consulted for further management. His blood work today showed a white count of 5.9, hemoglobin of 10.1, ABG showing a pH 7.4, PCO2 35, PO2 of 71 on 2 L nasal cannula, chemistry showing a sodium of 137, creatinine of 2.1, BUN of 35, baseline troponin of 34, proBNP of 4329. Patient admitted to [facility] for further evaluation and management of congestive heart failure in setting of atrial fibrillation with rapid ventricular response. At first he was started on Cardizem drip which was later transitioned over to higher dose of oral Cardizem. His medications are uptitrated keeping his goal heart rate of less than 100. Currently he is on amiodarone 200 mg daily, Cardizem 360 mg oral daily, metoprolol 25 mg twice daily. For his congestive heart failure he was started on IV diuresis to which she responded well and was later transitioned to oral medications. During hospitalization patient had occasional episodes of acute shortness of breath which were managed with a combination of inhalation treatment, anxiety medications and placement of BiPAP. It is believed patient's respiratory distress is secondary to a combination of congestive heart failure in setting of mitral regurgitation, advanced COPD and undiagnosed sleep apnea along with a combination of anxiety. Pulse oximetry overnight study was done through which patient has been qualified for BiPAP and request has been sent over to patient's primary care provider and insurance. Patient's care were discussed in detail with fruit or nut farm worker. He has been discharged in hemodynamically stable condition on Lasix twice daily, Cardizem 360 mg daily, metoprolol 25 mg twice daily along with amiodarone, prednisone 40 mg daily for next 5 days with advised to follow-up with pulmonology within next 1 week. He is also advised to have Holter monitor placed to rule out tachybradycardia syndrome. Given frailty of patient, baseline CKD, COPD and congestive heart failure with nonavailability of BiPAP currently for which patient needs to follow-up with his primary care provider before being made available to him he is at a higher risk of recurrent symptoms. Physical Exam Narrative: General: No acute distress, AO x3, on 2 L nasal cannula, below-knee amputation of left leg HEENT: PERRLA, pupils bilaterally equal and reactive Chest: Bilateral bronchial breath sounds, fine crackles present in lower zones bilaterally equal good air entry bilaterally CVS: S1-S2 irregularly irregular, tachycardia, no gallops, no rubs Abdomen: Soft, nontender, no organomegaly, bowel sounds present Neuro: No focal deficits, no facial deformity, AO x3, power 5/5 in all limbs Discharge Data Studies Completed and Pending Completed Studies During Hospitalization Category Date Time Status XR chest 1V portable [id number] Routine Exams 04/13/22 08:04 Completed XR chest 1V portable [id number] Urgent Exams 04/10/22 12:38 Completed Radiology Impressions Chest X-Ray 04/13/22 08:04 IMPRESSION: Increasing bibasilar opacity consistent with worsening lower lobe pneumonia or atelectasis. Laboratory Results WBC 8.4 10^3/uL (4.0-10.0) 04/13/22 06:54 RBC 3.82 10^6/uL (4.1-5.3) L 04/13/22 06:54 Hgb 10.7 g/dL (11.7-16.6) L 04/13/22 06:54 Hct 35.5 % (42.0-52.0) L 04/13/22 06:54 MCV 92.9 fl (80-94) 04/13/22 06:54 MCH 28.0 pg (28.0-34.0) 04/13/22 06:54 MCHC 30.1 g/dL (30.0-36.0) 04/13/22 06:54 RDW 16.2 % (12.1-15.1) H 04/13/22 06:54 Plt Count 88 10^3/cmm (130-400) L 04/13/22 06:54 MPV 11.6 fL (7.4-10.4) H 04/13/22 06:54 Neut % (Auto) 62.7 % 04/13/22 06:54 Lymph % (Auto) 25.7 % 04/13/22 06:54 [place] % (Auto) 9.7 % 04/13/22 06:54 Eos % (Auto) 0.6 % 04/13/22 06:54 Baso % (Auto) 0.4 % 04/13/22 06:54 Neut # (Auto) 5.28 10^3/uL (1.8-7.7) 04/13/22 06:54 Lymph # (Auto) 2.2 10^3/uL (0.8-4.8) 04/13/22 06:54 [place] # (Auto) 0.8 10^3/uL (0.2-0.9) 04/13/22 06:54 Eos # (Auto) 0.1 10^3/uL (0.0-0.8) 04/13/22 06:54 Baso # (Auto) 0.0 10^3/uL (0.0-0.1) 04/13/22 06:54 Nucleated RBC % (auto) 0 % 04/13/22 06:54 Nucleated RBCs # 0.0 /100WBC 04/13/22 06:54 Specimen Type Arterial 04/10/22 14:16 Sample Site Radial, right 04/10/22 14:16 ABG pH 7.41 (7.35-7.45) 04/10/22 14:16 ABG pCO2 35.1 mmHg (35-45) 04/10/22 14:16 ABG pO2 71.8 mmHg (80.0-100.0) L 04/10/22 14:16 ABG HCO3 22.2 mmol/L (22-26) 04/10/22 14:16 ABG Base Excess -2.1 mmol/L (-2.0-2.0) L 04/10/22 14:16 Mich Test Pos 04/10/22 14:16 Hematocrit 32.2 % (42-52) L 04/10/22 14:16 O2 Delivery Device Nc 04/10/22 14:16 O2 Liters/Min 2.0 % 04/10/22 14:16 FiO2 28.0 % 04/10/22 14:16 Road Monkey ID Ed 04/10/22 14:16 Sodium 134 mmol/L (136-145) L 04/15/22 04:43 Potassium 5.2 mmol/L (3.5-5.1) H 04/15/22 04:43 Chloride 97 mmol/L (98-107) L 04/15/22 04:43 Carbon Dioxide 18 mmol/L (22-29) L 04/15/22 04:43 Anion Gap 24.2 (5-19) H 04/15/22 04:43 BUN 55 mg/dL (8-23) H 04/15/22 04:43 Creatinine 2.6 mg/dL (0.7-1.2) H 04/15/22 04:43 GFR Calculation 25.0 mL/min (90-130) L 04/15/22 04:43 Glucose 198 mg/dL (65-115) H 04/15/22 04:43 POC Glucose 184 mg/dL (70-110) H 04/15/22 07:33 Calculated Osmolality 299 mOsm/kg (285-295) H 04/15/22 04:43 Calcium 8.9 mg/dL (8.5-10.5) 04/15/22 04:43 Phosphorus 5.0 mg/dL (2.5-4.5) H 04/11/22 09:17 Magnesium 2.2 mg/dL (1.7-2.3) 04/11/22 09:17 Total Bilirubin 1.4 mg/dL (0.15-1.2) H 04/15/22 04:43 AST 38 U/L (0-40) 04/15/22 04:43 ALT 22 U/L (0-41) 04/15/22 04:43 Alkaline Phosphatase 42 IU/L (40-130) 04/15/22 04:43 Troponin T Baseline 34 ng/L (0-15) H 04/10/22 13:35 Troponin T 120 Minute 34.30 ng/L (0-15) H 04/10/22 15:20 Delta Troponin T 0.30 ABS# (0-10) 04/10/22 15:20 Troponin T Hi Sens 6Hr 37.56 ng/L (0-15) H 04/10/22 21:12 Troponin T Hi Sens 6Hr Delta 3.56 ng/L (0-12) 04/10/22 21:12 NT-Pro-B Natriuret Pep 3332 pg/mL (0-125) H 04/13/22 06:54 Total Protein 6.4 g/dL (6.6-8.7) L 04/15/22 04:43 Albumin 3.8 g/dL (3.5-5.2) 04/15/22 04:43 Globulin 2.6 g/dL (1.3-4.6) 04/15/22 04:43 Vitamin B12 580 pg/mL (232-1245) 04/11/22 09:17 Folate > 20.0 ng/mL (4.5-32.2) 04/11/22 12:05 Procalcitonin 0.06 ng/mL (0-0.5) 04/10/22 15:20 Urine Color Straw (Yellow) 04/10/22 20:17 Urine Appearance Clear (CLEAR) 04/10/22 20:17 Urine pH 5 (5-7) 04/10/22 20:17 Ur Specific [place] 1.010 (1.005-1.030) 04/10/22 20:17 Urine Protein Neg (Negative) 04/10/22 20:17 Urine Glucose (UA) Norm (Normal) 04/10/22 20:17 Urine Ketones Negative (Negative) 04/10/22 20:17 Urine Blood Neg (Negative) 04/10/22 20:17 Urine Nitrate Negative (Negative) 04/10/22 20:17 Urine Bilirubin Neg (Negative) 04/10/22 20:17 Urine Urobilinogen Norm mg/dL (Negative) 04/10/22 20:17 Ur Leukocyte Esterase Negative (Negative) 04/10/22 20:17 Urine Opiates Screen Negative ng/mL (Negative) 04/10/22 20:17 Ur Barbiturates Screen Negative ng/mL (Negative) 04/10/22 20:17 Ur Phencyclidine Scrn Negative ng/mL (Negative) 04/10/22 20:17 Ur Amphetamines Screen Negative ng/mL (Negative) 04/10/22 20:17 U Benzodiazepines Scrn Negative ng/mL (Negative) 04/10/22 20:17 Urine Cocaine Screen Negative ng/mL (Negative) 04/10/22 20:17 U Marijuana (THC) Screen Negative ng/mL (Negative) 04/10/22 20:17 Influenza Type A Ag Negative (Negative) 04/10/22 17:50 Influenza Type B Ag Negative (Negative) 04/10/22 17:50 Vitals Last Vital Signs Temp 98.6 F 04/15/22 10:30 Pulse 104 H 04/15/22 11:09 Resp 20 H 04/15/22 10:30 BP 109/58 04/15/22 10:30 Pulse Ox 99 04/15/22 11:09 Discharge Plan Discharge Patient Disposition: Home Condition: Stable Prescriptions: New furosemide 40 mg Tablet 40 mg PO BID@08,16 Qty: 60 0RF prednisone 20 mg Tablet 40 mg PO DAILY Qty: 14 0RF isosorbide mononitrate 30 mg Tablet Extended Release 24 Hr 15 mg PO DAILY Qty: 30 0RF doxycycline monohydrate 100 mg Tablet 100 mg PO BID Qty: 10 0RF alprazolam 0.5 mg Tablet 0.5 mg PO Q8H PRN (Reason: Anxiety) Qty: 15 0RF diltiazem HCl [Cardizem CD] 360 mg capsule,extended release 24hr 360 mg PO DAILY Qty: 30 0RF Continued Stiolto Respimat 2.5-2.5 mcg/actuation mist 2 puff inhalation DAILY Qty: 4 3RF escitalopram oxalate 10 mg Tablet 5 mg PO DAILY Qty: 30 0RF atorvastatin 80 mg Tablet 80 mg PO QPM 0RF ferrous sulfate 325 mg (65 mg iron) Tablet 325 mg PO DAILY@1100 0RF cholecalciferol (vitamin D3) 2,000 unit Tablet 2,000 unit PO DAILY@1100 0RF pentoxifylline 400 mg tablet extended release 400 mg PO BID 0RF senna 8.6 mg Capsule 8.6 mg PO DAILY PRN (Reason: Constipation) 0RF levetiracetam [Keppra] 500 mg tablet 500 mg PO BID Qty: 60 0RF clopidogrel [Plavix] 75 mg Tablet 75 mg PO DAILY@1100 0RF albuterol sulfate 90 mcg/actuation Hfa Aerosol Inhaler 2 puff INHALATION Q4H PRN (Reason: Shortness Of Breath) 0RF insulin aspart U-100 [Novolog Flexpen U-100 Insulin] 100 unit/mL (3 mL) Insulin Pen 17 unit SUBCUT BEDTIME PRN (Reason: blood sugar) 0RF tamsulosin 0.4 mg capsule 0.4 mg PO BID@1100,2000 0RF fluticasone propionate 50 mcg/actuation [place],Suspension 2 spray INTRANASAL DAILY PRN (Reason: Allergy Symptoms) 0RF amiodarone 200 mg tablet 200 mg PO DAILY Qty: 30 3RF Eliquis 5 mg Tablet 5 mg PO BID@0900,2100 Qty: 180 0RF omeprazole 40 mg Capsule,Delayed Release(Dr/Ec) 40 mg PO DAILY@11 0RF multivitamin with iron-mineral Tablet 1 tab PO DAILY 0RF ipratropium-albuterol 20-100 mcg/actuation Mist 1 puff INHALATION QID PRN (Reason: breathing) 0RF Rx Instructions: space evenly during waking hours Changed metoprolol tartrate 25 mg tablet 25 mg PO BID Qty: 60 3RF Discontinued losartan 100 mg tablet 50 mg PO DAILY@1100 0RF Hold Instructions: Resume on 04/04/22. furosemide [Lasix] 20 mg tablet 20 mg PO QAM 0RF Hold Instructions: Resume on 03/28/22. diltiazem HCl 240 mg Capsule,Extended Release 24hr 240 mg PO DAILY 30 Days Qty: 30 3RF Discharge Orders: Discharge Order (Routine); Ordered 04/15/22 Ordered By: Sujit Zhang Other Ambulatory Orders: DME: BIPAP (Order) Location: None Selected Ordered By: Sujit Zhang Referrals: Castillo Jean MD [Physician] - 7-10 days Sudeep Cotto MD [Physician] - 2 weeks Fer Musa DO [Primary Care Provider] - 4-7 days Discharge Diet: Cardiac Discharge Activity: Resume usual activity and Increase activity as tolerated Patient Instructions: Opioid Safety Discharge Attestations Time Spent in Discharge Care*: greater than 30 min Specific Discharge Activities: educating patient, discussing with pcp/other providers, discussing with case management associate/social workers/dc planners, documenting/other paperwork and evaluating patient/reviewing data Status at Discharge: Cognitive status at discharge: cognitively intact, Behavioral status at discharge: cooperative and can be uncooperative, Functional status at discharge: uses cane/walker, Overall status at discharge: patient is progressing back to baseline Quality Metrics Clinical Quality Measures [ No reported AMI, CVA or VTE this stay] Coding Level of Care Code Acute Chg FW DC note History Comprehensive 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 Medical Decision Making High Complexity Diagnoses Atrial fibrillation with rapid ventricular response I48.91 Congestive heart failure with preserved left ventricular function, NYHA class 1 I50.30 Mitral regurgitation I34.0 Cardiac valve disease etiology: etiology unspecified
--- NOTE | 2022-04-15 13:42 | PC.NURSE ---
Discharge education given to patient and significant other at car side. Patient required two people to assist getting into car. Significant other concerned about getting patient into home once there. This nurse suggested getting family over to assist her. Patient verbalized understanding of follow up visits and the need to follow prescription instructions and need for BIPAP at home.
== END 2022-04-15 13:44 | disposition home health service (06) | DRG 291 ==
LOC: ER 14:42 → ICU 15:25
PROVIDERS: Admitting Provider Student in an Organized Health Care Education/Training Program; Emergency Provider Emergency Medicine; PCP Emergency Medicine Emergency Medical Services; Visit Provider Student in an Organized Health Care Education/Training Program
DX: I13.0 Hypertensive heart and chronic kidney disease with heart failure and stage 1 through stage 4 chronic kidney disease, or unspecified chronic kidney disease (principal); I50.33 Acute on chronic diastolic (congestive) heart failure; N18.30 Chronic kidney disease, stage 3 unspecified; E11.22 Type 2 diabetes mellitus with diabetic chronic kidney disease; I48.91 Unspecified atrial fibrillation; E11.51 Type 2 diabetes mellitus with diabetic peripheral angiopathy without gangrene; Z99.81 Dependence on supplemental oxygen; I08.0 Rheumatic disorders of both mitral and aortic valves; N40.0 Benign prostatic hyperplasia without lower urinary tract symptoms; I25.10 Atherosclerotic heart disease of native coronary artery without angina pectoris; Z86.73 Personal history of transient ischemic attack (TIA), and cerebral infarction without residual deficits; F32.A Depression, unspecified; Z86.19 Personal history of other infectious and parasitic diseases; E66.8 Other obesity; Z68.31 Body mass index [BMI] 31.0-31.9, adult; Z87.01 Personal history of pneumonia (recurrent); Z89.612 Acquired absence of left leg above knee; Z87.891 Personal history of nicotine dependence; J44.9 Chronic obstructive pulmonary disease, unspecified; G47.30 Sleep apnea, unspecified; Z79.01 Long term (current) use of anticoagulants; Z79.51 Long term (current) use of inhaled steroids; Z79.02 Long term (current) use of antithrombotics/antiplatelets; F41.9 Anxiety disorder, unspecified
CPT/HCPCS: 36415; 36416; 36600; 71045; 80053; 80306; 81003; 82607; 82746; 82803; 82962; 83735; 83880; 84100; 84145; 84484; 85025; 87804; 93005; 94640; 94660; 94664; 94762; 96372; 96374; 96375; 99285; J1815 ×2; J1940; J2270; J2930; J3490; J7512; J7614; J7626; J7644

== ENCOUNTER 2022-04-19 16:41 | Inpatient (IN) | payer OTHER, MEDICARE, SELFPAY ==
[2022-04-19] VITALS (15 sets, daily range): BP systolic 90–177; BP diastolic 60–108; PULSE 49–92; RESP 16–36; TEMP 36.1; O2SAT 90–981; BMI 33.5
--- NOTE | 2022-04-19 16:53 | XRR_ITS ---
PROCEDURE INFORMATION: Exam: XR Chest Exam date and time: 04/19/2022 4:57 PM Age: 66 years old Clinical indication: Shortness of breath; Additional info: Dyspnea/cough TECHNIQUE: Imaging protocol: XR of the chest. Views: 1 view. COMPARISON: CR XR chest 1V portable [id number] 04/13/2022 8:09 AM FINDINGS: Lungs: Unremarkable. No consolidation. Pleural spaces: Unremarkable. No pleural effusion. No pneumothorax. Heart/Mediastinum: Unremarkable. No cardiomegaly. Bones/joints: Unremarkable. XR/XR chest 1V portable [id number] IMPRESSION: No acute findings.
--- NOTE | 2022-04-19 16:53 | ECG_ITS ---
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 Measurements Intervals [place] Rate: 82 P: AR: QRS: -30 QRSD: 113 T: 62 QT: 351 QTc: 411 Interpretive Statements ATRIAL FIBRILLATION LOW QRS VOLTAGE IN PRECORDIAL LEADS [QRS DEFLECTION < 1.0 mV IN CHEST LEADS] INFERIOR MYOCARDIAL INFARCTION , PROBABLY OLD [40+ ms Q WAVE AND/OR ST/T ABNORMALITY IN II/aVF] ANTEROLATERAL MYOCARDIAL INFARCTION , PROBABLY OLD [40+ ms Q WAVE IN I/aVL/V3-V6] Compared to ECG 04/10/2022 14:57:20 Low QRS voltage now present Myocardial infarct finding still present Electronically Signed On 04-19-2022 20:16:32 CDT by Sudeep Cotto M.D. [email or web address]
--- NOTE | 2022-04-19 17:02 | W.ED.SOB ---
Documented by User: Rich Jara DO 05/01/22 19:24 HPI - SOB/Dyspnea General: Chief Complaint: Shortness of Breath/Dyspnea Stated Complaint: RESP DISTRESS Time Seen by Provider: 04/19/22 16:52 Source: patient Mode of arrival: EMS Limitations: no limitations History of Present Illness: HPI Narrative: 66-year-old male presents emergency room with complaints of shortness of breath. Brought in by EMS. He was admitted on 530 and discharged on 6 4. He states over the last 3 days he has been extremely short of breath he comes in gasping for breath he is usually on 4 to 5 L he is satting in the low 90s on 4 to 5 L at this time. He denies any chest or abdominal pain. MD elicited complaint: shortness of breath and cough Pertinent past history: COPD Associated symptoms: Deny abdominal pain, chest pain, fever(s), nausea, orthopnea or vomiting Review of Systems Const: Denies: fever(s), chills, body aches, change in appetite, fatigue or malaise ENMT: Denies: throat pain, ear or mastoid pain, nasal discharge or nasal congestion Card: Denies: chest pain, edema, dyspnea on exertion or orthopnea Resp: Reports: dyspnea, non-productive cough and wheezing GI: Denies: abdominal pain, nausea, vomiting, coffee ground emesis, diarrhea or constipation PFS ED PFSH: Medical History Acute kidney injury superimposed on CKD Acute respiratory failure with hypoxia Aortic regurgitation Atrial fibrillation with slow ventricular response Benign prostatic hyperplasia CAD (coronary artery disease) Cervical disc disorder with myelopathy of mid-cervical region Chronic kidney disease, stage III (moderate) Claustrophobia Congestive heart failure with preserved left ventricular function, NYHA class 1 COPD (chronic obstructive pulmonary disease) moderate obstructive ventilatory defect, significant response to bronchodilators. Lung volumes suggestive of mild air trapping. Mild reduction in gas transfer. Coronary artery calcification CVA (cerebral vascular accident) (~01/2021) clinical diagnosis with dysarthria and confusion, unremarkable work up but unable to perform MRI due to severe claustrophobia Degenerative joint disease of left shoulder Degenerative lumbar disc Depression hospitalization 04/2021 Diabetes mellitus Facet arthropathy, lumbar Frequent UTI Hemoptysis Hepatitis C virus infection resolved after antiviral drug therapy some early cirrhosis, HCC ruled out History of DVT (deep vein thrombosis) (~12/2018) HTN (hypertension), benign Hypertension Lumbar disc disease with radiculopathy Lumbar stenosis with neurogenic claudication Mitral regurgitation Myoclonus dystonia New onset atrial fibrillation Obesity (BMI 30.0-34.9) Peripheral vascular disease Pneumonia Recurrent cystitis Thrombocytopenia 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 Pets and animals: No Current gender identity: Male Physical Exam Const: GENERAL APPEARANCE: cooperative ORIENTATION/CONSCIOUSNESS: Yes awake HENMT: COMMON NORMALS: normocephalic and atraumatic HEAD & SCALP: normocephalic and atraumatic Neck/C-Spine: COMMON NORMALS: full ROM, no lymphadenopathy, supple and no JVD Resp: EFFORT & INSPECTION: Yes able to speak in complete sentences, Yes tachypneic and Yes pursed lip breathing AUSCULTATION: rhonchi and wheezes Cardio: COMMON NORMALS: no JVD and No murmurs present (Cardio) RATE: tachycardic GI: COMMON NORMALS: Soft to palpation and No hepatosplenomegaly present AUSCULTATION: Yes normoactive bowel sounds PALPATION: Yes Soft to palpation, No Tenderness to palpation present (GI), No Guarding due to palpation present (GI) and Yes No hepatosplenomegaly present Extremity: GENERAL: Yes edema Course Vital Signs: Vital signs: Vital Signs Temperature 102 F H 04/24/22 02:43 Pulse Rate 156 H 04/25/22 01:08 Respiratory Rate 20 H 04/24/22 07:39 Blood Pressure 110/65 04/25/22 01:08 Pulse Oximetry 80 L 04/25/22 01:08 MDM - SOB/Dyspnea Medical Decision Making Patient initially seen is having some respiratory distress trial on BiPAP mode. Care turned over to Dr. Smiley at change of shift see his note for final diagnosis disposition Patient care handoff received from Dr. Jara pending completion of ED evaluation. Leukocytosis, normocytic anemia on labs. Metabolic panel with dehydration, hyperkalemia, decreased bicarb with increased anion gap, renal function worse than baseline. Lactic acid is elevated with repeat pending. ABG borderline and patient trialed on BiPAP. He only intermittently tolerated this and repeat ABG mildly worsened. Imaging notable for pneumonia and other incidental findings. Overall patient is quite ill. Discussed with hospitalist service who came to evaluate the patient, we did have discussion about intubation though elected to hold off for now and patient will be watched closely in ICU. Additional fluids and antibiotics given. Admitted to ICU in guarded condition. Ady Fragoso MD Emergency Medicine Lab Data : 04/24/22 03:51 04/24/22 08:00 Labs/Radiology: Radiology Impressions Chest/Abdomen/Pelvis CT 04/19/22 20:13 IMPRESSION: 1. Patchy right middle lobe pneumonia. 2. Question of mild interstitial edema. 3. Mild cardiomegaly 4. Coronary disease 5. Bilateral pleural effusions. IMPRESSION: 1. Cholelithiasis 2. Moderate gallbladder wall thickening of uncertain significance cholecystitis not excluded. 3. 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 5. Mild abdominal aortic aneurysm. 6. Bilateral inguinal hernias containing fat Venous Duplex 04/20/22 14:01 IMPRESSION: 1. Nonocclusive DVT in the proximal and mid superficial femoral vein which appears occlusive more distally. 2. No findings of DVT in the right lower extremity. 3. Occluded left superficial femoral artery stent. ADDENDUM: 04/20/22 [id number] Please note, the nonocclusive and occlusive DVT in impression #1 is located on the left. ADDENDUM: 04/20/22 [id number] Findings were discussed with SUSIE Olea at 04/20/2022 5:45 PM CDT. Chest X-Ray 04/23/22 04:00 IMPRESSION: 1. Continued bilateral lung opacities, worsening on the right. See above discussion. 2. Increasing pleural effusions. 3. Other findings discussed above. Head CT 04/23/22 04:00 IMPRESSION: 1. Large acute or subacute infarct involving essentially the entire right middle cerebral artery distribution. 2. Diffuse cerebral edema involving the right cerebral hemisphere, with 2-3 mm of right to left midline shift. 3. Suspect a few subtle areas of associated hemorrhage, although evaluation for hemorrhage is limited by motion artifact. 4. Other details/findings discussed above. 5. Some limitations due to artifact from patient motion. ADDENDUM: 04/23/22 [id number] This report contains findings that may be critical to patient care. I discussed the critical exam findings by phone with Dr. Villalta, at 5:05 AM CDT, 04/23/2022. The findings were acknowledged and understood. Laboratory Results WBC 16.1 10^3/uL (4.0-10.0) H 04/19/22 18:52 RBC 3.85 10^6/uL (4.1-5.3) L 04/19/22 18:52 Hgb 10.2 g/dL (11.7-16.6) L 04/19/22 18:52 Hct 34.5 % (42.0-52.0) L 04/19/22 18:52 MCV 89.6 fl (80-94) 04/19/22 18:52 MCH 26.5 pg (28.0-34.0) L 04/19/22 18:52 MCHC 29.6 g/dL (30.0-36.0) L 04/19/22 18:52 RDW 16.6 % (12.1-15.1) H 04/19/22 18:52 Plt Count 139 10^3/cmm (130-400) 04/19/22 18:52 MPV 10.8 fL (7.4-10.4) H 04/19/22 18:52 Neut % (Auto) 82.5 % 04/19/22 18:52 Lymph % (Auto) 9.8 % 04/19/22 18:52 [place] % (Auto) 5.7 % 04/19/22 18:52 Eos % (Auto) 0.0 % 04/19/22 18:52 Baso % (Auto) 0.1 % 04/19/22 18:52 Neut # (Auto) 13.26 10^3/uL (1.8-7.7) H 04/19/22 18:52 Lymph # (Auto) 1.6 10^3/uL (0.8-4.8) 04/19/22 18:52 [place] # (Auto) 0.9 10^3/uL (0.2-0.9) 04/19/22 18:52 Eos # (Auto) 0.0 10^3/uL (0.0-0.8) 04/19/22 18:52 Baso # (Auto) 0.0 10^3/uL (0.0-0.1) 04/19/22 18:52 Nucleated RBC % (auto) 2.4 % 04/19/22 18:52 Nucleated RBCs # 0.4 /100WBC 04/19/22 18:52 Specimen Type Arterial 04/19/22 21:17 Sample Site Radial, left 04/19/22 21:17 ABG pH 7.28 (7.35-7.45) L 04/19/22 21:17 ABG pCO2 32.2 mmHg (35-45) L 04/19/22 21:17 ABG pO2 116.0 mmHg (80.0-100.0) H 04/19/22 21:17 ABG HCO3 15.0 mmol/L (22-26) L 04/19/22 21:17 ABG O2 Saturation 94.1 04/19/22 17:21 ABG Base Excess -10.7 mmol/L (-2.0-2.0) L 04/19/22 21:17 Mich Test Pos 04/19/22 21:17 A-a O2 Gradient 22.9 mmHg (5-10) H 04/19/22 17:21 Hematocrit 31.8 % (42-52) L 04/19/22 21:17 Hgb O2 Saturation 92.4 % (95-100) L 04/19/22 17:21 Carboxyhemoglobin 1.4 %THgb (0.4-20.1) 04/19/22 17:21 Methemoglobin 0.4 % (0.4-1.5) 04/19/22 17:21 Total Hemoglobin 10.3 g/dL (14-18) L 04/19/22 17:21 Sodium 136.0 mmol/L (131-143) 04/19/22 17:21 Potassium 5.6 mmol/L (3.5-5.0) H 04/19/22 17:21 Glucose 329.0 mg/dL (70-115) H 04/19/22 17:21 Ionized Calcium 1.2 mmol/L (1.1-1.4) 04/19/22 17:21 O2 Delivery Device Bipap 04/19/22 21:17 O2 Liters/Min 5.0 % 04/19/22 17:21 FiO2 36.0 % 04/19/22 21:17 Ice Delivery Driver ID Ed 04/19/22 21:17 Sodium 132 mmol/L (136-145) L 04/19/22 18:52 Potassium 5.5 mmol/L (3.5-5.1) H 04/19/22 18:52 Chloride 94 mmol/L (98-107) L 04/19/22 18:52 Carbon Dioxide 18 mmol/L (22-29) L 04/19/22 18:52 Anion Gap 25.5 (5-19) H 04/19/22 18:52 BUN 93 mg/dL (8-23) H* D 04/19/22 18:52 Creatinine 3.7 mg/dL (0.7-1.2) H 04/19/22 18:52 GFR Calculation 16.6 mL/min (90-130) L 04/19/22 18:52 Glucose 259 mg/dL (65-115) H 04/19/22 18:52 Calculated Osmolality 312 mOsm/kg (285-295) H 04/19/22 18:52 Lactic Acid 5.1 mmol/L (0.5-2.2) H* 04/19/22 18:52 Calcium 9.3 mg/dL (8.5-10.5) 04/19/22 18:52 Total Bilirubin 1.1 mg/dL (0.15-1.2) 04/19/22 18:52 AST 23 U/L (0-40) 04/19/22 18:52 ALT 52 U/L (0-41) H 04/19/22 18:52 Alkaline Phosphatase 38 IU/L (40-130) L 04/19/22 18:52 Troponin T Baseline 52 ng/L (0-15) H 04/19/22 18:52 Troponin T 120 Minute 49.78 ng/L (0-15) H 04/19/22 21:40 Delta Troponin T -2.22 ABS# (0-10) L 04/19/22 21:40 Total Protein 6.9 g/dL (6.6-8.7) 04/19/22 18:52 Albumin 4.6 g/dL (3.5-5.2) 04/19/22 18:52 Globulin 2.3 g/dL (1.3-4.6) 04/19/22 18:52 Urine Color Yellow (Yellow) 04/19/22 21:30 Urine Appearance Clear (CLEAR) 04/19/22 21:30 Urine pH 5 (5-7) 04/19/22 21:30 Ur Specific [place] 1.025 (1.005-1.030) 04/19/22 21:30 Urine Protein 1+ (Negative) H 04/19/22 21:30 Urine Glucose (UA) Norm (Normal) 04/19/22 21:30 Urine Ketones Negative (Negative) 04/19/22 21:30 Urine Blood Neg (Negative) 04/19/22 21:30 Urine Nitrate Negative (Negative) 04/19/22 21:30 Urine Bilirubin Neg (Negative) 04/19/22 21:30 Urine Urobilinogen 1 mg/dL (Negative) H 04/19/22 21:30 Ur Leukocyte Esterase Negative (Negative) 04/19/22 21:30 Urine RBC 0-4 /hpf (0-2) H 04/19/22 21:30 Urine WBC 0-4 /hpf (0-5) H 04/19/22 21:30 Ur Squamous Epith Cells 0-4 /hpf (0-5) H 04/19/22 21:30 Amorphous Sediment 1+ /hpf 04/19/22 21:30 Urine Bacteria Trace /hpf (NONE) 04/19/22 21:30 Discharge Plan Discharge Patient Disposition: Admitted As Inpatient Admit Provider: Jian Villalta Clinical Impression: Acute exacerbation of chronic obstructive airways disease, Pneumonia, Sepsis, Acute and chronic respiratory failure, Acute kidney injury superimposed on chronic kidney disease Sign Out Sign Out Data: Patient Sign Out occurred on 04/19/22 at 18:32. Patient's care was discussed, and care was transferred from to Ady Fragoso MD. Coding Level of Care Code ED Circular Knitter Helper for Chg Fwd Documented by User: Ady Fragoso MD 05/01/22 02:00 HPI - SOB/Dyspnea General: Chief Complaint: Shortness of Breath/Dyspnea Stated Complaint: RESP DISTRESS Time Seen by Provider: 04/19/22 16:52 PFSH ED PFSH: Medical History Acute kidney injury superimposed on CKD Acute respiratory failure with hypoxia Aortic regurgitation Atrial fibrillation with slow ventricular response Benign prostatic hyperplasia CAD (coronary artery disease) Cervical disc disorder with myelopathy of mid-cervical region Chronic kidney disease, stage III (moderate) Claustrophobia Congestive heart failure with preserved left ventricular function, NYHA class 1 COPD (chronic obstructive pulmonary disease) moderate obstructive ventilatory defect, significant response to bronchodilators. Lung volumes suggestive of mild air trapping. Mild reduction in gas transfer. Coronary artery calcification CVA (cerebral vascular accident) (~01/2021) clinical diagnosis with dysarthria and confusion, unremarkable work up but unable to perform MRI due to severe claustrophobia Degenerative joint disease of left shoulder Degenerative lumbar disc Depression hospitalization 04/2021 Diabetes mellitus Facet arthropathy, lumbar Frequent UTI Hemoptysis Hepatitis C virus infection resolved after antiviral drug therapy some early cirrhosis, HCC ruled out History of DVT (deep vein thrombosis) (~12/2018) HTN (hypertension), benign Hypertension Lumbar disc disease with radiculopathy Lumbar stenosis with neurogenic claudication Mitral regurgitation Myoclonus dystonia New onset atrial fibrillation Obesity (BMI 30.0-34.9) Peripheral vascular disease Pneumonia Recurrent cystitis Thrombocytopenia 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 Jara pending completion of ED evaluation. Leukocytosis, normocytic anemia on labs. Metabolic panel with dehydration, hyperkalemia, decreased bicarb with increased anion gap, renal function worse than baseline. Lactic acid is elevated with repeat pending. ABG borderline and patient trialed on BiPAP. He only intermittently tolerated this and repeat ABG mildly worsened. Imaging notable for pneumonia and other incidental findings. Overall patient is quite ill. Discussed with hospitalist service who came to evaluate the patient, we did have discussion about intubation though elected to hold off for now and patient will be watched closely in ICU. Additional fluids and antibiotics given. Admitted to ICU in guarded condition. Ady Fragoso MD Emergency Medicine Lab Data : 04/24/22 03:51 04/24/22 08:00 Labs/Radiology: Radiology Impressions Chest/Abdomen/Pelvis CT 04/19/22 20:13 IMPRESSION: 1. Patchy right middle lobe pneumonia. 2. Question of mild interstitial edema. 3. Mild cardiomegaly 4. Coronary disease 5. Bilateral pleural effusions. IMPRESSION: 1. Cholelithiasis 2. Moderate gallbladder wall thickening of uncertain significance cholecystitis not excluded. 3. 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 5. Mild abdominal aortic aneurysm. 6. Bilateral inguinal hernias containing fat Venous Duplex 04/20/22 14:01 IMPRESSION: 1. Nonocclusive DVT in the proximal and mid superficial femoral vein which appears occlusive more distally. 2. No findings of DVT in the right lower extremity. 3. Occluded left superficial femoral artery stent. ADDENDUM: 04/20/221741 Please note, the nonocclusive and occlusive DVT in impression #1 is located on the left. ADDENDUM: 04/20/22 156 Findings were discussed with SUSIE Olea at 04/20/2022 5:45 PM CDT. Chest X-Ray 04/23/22 04:00 IMPRESSION: 1. Continued bilateral lung opacities, worsening on the right. See above discussion. 2. Increasing pleural effusions. 3. Other findings discussed above. Head CT 04/23/22 04:00 IMPRESSION: 1. Large acute or subacute infarct involving essentially the entire right middle cerebral artery distribution. 2. Diffuse cerebral edema involving the right cerebral hemisphere, with 2-3 mm of right to left midline shift. 3. Suspect a few subtle areas of associated hemorrhage, although evaluation for hemorrhage is limited by motion artifact. 4. Other details/findings discussed above. 5. Some limitations due to artifact from patient motion. ADDENDUM: 04/23/22 [id number] This report contains findings that may be critical to patient care. I discussed the critical exam findings by phone with Dr. Villalta, at 5:05 AM CDT, 04/23/2022. The findings were acknowledged and understood. Laboratory Results WBC 16.1 10^3/uL (4.0-10.0) H 04/19/22 18:52 RBC 3.85 10^6/uL (4.1-5.3) L 04/19/22 18:52 Hgb 10.2 g/dL (11.7-16.6) L 04/19/22 18:52 Hct 34.5 % (42.0-52.0) L 04/19/22 18:52 MCV 89.6 fl (80-94) 04/19/22 18:52 MCH 26.5 pg (28.0-34.0) L 04/19/22 18:52 MCHC 29.6 g/dL (30.0-36.0) L 04/19/22 18:52 RDW 16.6 % (12.1-15.1) H 04/19/22 18:52 Plt Count 139 10^3/cmm (130-400) 04/19/22 18:52 MPV 10.8 fL (7.4-10.4) H 04/19/22 18:52 Neut % (Auto) 82.5 % 04/19/22 18:52 Lymph % (Auto) 9.8 % 04/19/22 18:52 Kemper % (Auto) 5.7 % 04/19/22 18:52 Eos % (Auto) 0.0 % 04/19/22 18:52 Baso % (Auto) 0.1 % 04/19/22 18:52 Neut # (Auto) 13.26 10^3/uL (1.8-7.7) H 04/19/22 18:52 Lymph # (Auto) 1.6 10^3/uL (0.8-4.8) 04/19/22 18:52 Kemper # (Auto) 0.9 10^3/uL (0.2-0.9) 04/19/22 18:52 Eos # (Auto) 0.0 10^3/uL (0.0-0.8) 04/19/22 18:52 Baso # (Auto) 0.0 10^3/uL (0.0-0.1) 04/19/22 18:52 Nucleated RBC % (auto) 2.4 % 04/19/22 18:52 Nucleated RBCs # 0.4 /100WBC 04/19/22 18:52 Specimen Type Arterial 04/19/22 21:17 Sample Site Radial, left 04/19/22 21:17 ABG pH 7.28 (7.35-7.45) L 04/19/22 21:17 ABG pCO2 32.2 mmHg (35-45) L 04/19/22 21:17 ABG pO2 116.0 mmHg (80.0-100.0) H 04/19/22 21:17 ABG HCO3 15.0 mmol/L (22-26) L 04/19/22 21:17 ABG O2 Saturation 94.1 04/19/22 17:21 ABG Base Excess -10.7 mmol/L (-2.0-2.0) L 04/19/22 21:17 Mich Test Pos 04/19/22 21:17 A-a O2 Gradient 22.9 mmHg (5-10) H 04/19/22 17:21 Hematocrit 31.8 % (42-52) L 04/19/22 21:17 Hgb O2 Saturation 92.4 % (95-100) L 04/19/22 17:21 Carboxyhemoglobin 1.4 %THgb (0.4-20.1) 04/19/22 17:21 Methemoglobin 0.4 % (0.4-1.5) 04/19/22 17:21 Total Hemoglobin 10.3 g/dL (14-18) L 04/19/22 17:21 Sodium 136.0 mmol/L (131-143) 04/19/22 17:21 Potassium 5.6 mmol/L (3.5-5.0) H 04/19/22 17:21 Glucose 329.0 mg/dL (70-115) H 04/19/22 17:21 Ionized Calcium 1.2 mmol/L (1.1-1.4) 04/19/22 17:21 O2 Delivery Device Bipap 04/19/22 21:17 O2 Liters/Min 5.0 % 04/19/22 17:21 FiO2 36.0 % 04/19/22 21:17 Ice Delivery Driver ID Ed 04/19/22 21:17 Sodium 132 mmol/L (136-145) L 04/19/22 18:52 Potassium 5.5 mmol/L (3.5-5.1) H 04/19/22 18:52 Chloride 94 mmol/L (98-107) L 04/19/22 18:52 Carbon Dioxide 18 mmol/L (22-29) L 04/19/22 18:52 Anion Gap 25.5 (5-19) H 06/08/22 18:52 BUN 93 mg/dL (8-23) H* D 04/19/22 18:52 Creatinine 3.7 mg/dL (0.7-1.2) H 04/19/22 18:52 GFR Calculation 16.6 mL/min (90-130) L 04/19/22 18:52 Glucose 259 mg/dL (65-115) H 04/19/22 18:52 Calculated Osmolality 312 mOsm/kg (285-295) H 04/19/22 18:52 Lactic Acid 5.1 mmol/L (0.5-2.2) H* 04/19/22 18:52 Calcium 9.3 mg/dL (8.5-10.5) 04/19/22 18:52 Total Bilirubin 1.1 mg/dL (0.15-1.2) 04/19/22 18:52 AST 23 U/L (0-40) 04/19/22 18:52 ALT 52 U/L (0-41) H 04/19/22 18:52 Alkaline Phosphatase 38 IU/L (40-130) L 04/19/22 18:52 Troponin T Baseline 52 ng/L (0-15) H 04/19/22 18:52 Troponin T 120 Minute 49.78 ng/L (0-15) H 04/19/22 21:40 Delta Troponin T -2.22 ABS# (0-10) L 04/19/22 21:40 Total Protein 6.9 g/dL (6.6-8.7) 04/19/22 18:52 Albumin 4.6 g/dL (3.5-5.2) 04/19/22 18:52 Globulin 2.3 g/dL (1.3-4.6) 04/19/22 18:52 Urine Color Yellow (Yellow) 04/19/22 21:30 Urine Appearance Clear (CLEAR) 04/19/22 21:30 Urine pH 5 (5-7) 04/19/22 21:30 Ur Specific [place] 1.025 (1.005-1.030) 04/19/22 21:30 Urine Protein 1+ (Negative) H 04/19/22 21:30 Urine Glucose (UA) Norm (Normal) 04/19/22 21:30 Urine Ketones Negative (Negative) 04/19/22 21:30 Urine Blood Neg (Negative) 04/19/22 21:30 Urine Nitrate Negative (Negative) 04/19/22 21:30 Urine Bilirubin Neg (Negative) 04/19/22 21:30 Urine Urobilinogen 1 mg/dL (Negative) H 04/19/22 21:30 Ur Leukocyte Esterase Negative (Negative) 04/19/22 21:30 Urine RBC 0-4 /hpf (0-2) H 04/19/22 21:30 Urine WBC 0-4 /hpf (0-5) H 04/19/22 21:30 Ur Squamous Epith Cells 0-4 /hpf (0-5) H 04/19/22 21:30 Amorphous Sediment 1+ /hpf 04/19/22 21:30 Urine Bacteria Trace /hpf (NONE) 04/19/22 21:30 Critical Care Time Critical Care Time: Critical Care Time: Yes Total Critical Care Time: 40 Attestation: Due to a high probability of clinically significant, possibly life threatening deterioration, the patient required my highest level of attention and preparedness to intervene emergently and I personally spent this critical care time directly and personally managing the patient. This critical care time included obtaining a history; examining the patient; pulse oximetry; ordering and review of laboratory and imaging studies; arranging urgent treatment with development of a management plan; evaluation of patient's response to treatment; frequent reassessment; and, discussions with other providers as applicable. It was exclusive of separately billable procedures. Discharge Plan Discharge Patient Disposition: Admitted As Inpatient Admit Provider: Jian Villalta Clinical Impression: Acute exacerbation of chronic obstructive airways disease, Pneumonia, Sepsis, Acute and chronic respiratory failure, Acute kidney injury superimposed on chronic kidney disease Sign Out Sign Out Data: Patient Sign Out occurred on 04/19/22 at 18:32. Patient's care was discussed, and care was transferred from to Ady Fragoso MD. Coding Level of Care Code ED Circular Knitter Helper for Chio Bartholomew
[2022-04-19 17:31] LABS: ABG PCO2 27.4 mmHg (35-45); ABG PH Result 7.33 (7.35-7.45); Arterial Blood Gas Hematocrit 31.7 % (42-52); Blood Gas Allen Test Pos; Blood Gas Sample Type Arterial; Carboxyhemoglobin 1.4 %THgb (0.4-20.1); HCO3 ABG 14.6 mmol/L (22-26); HGB O2 Sat 92.4 % (95-100); Ionized Calcium Level - ABG 1.2 mmol/L (1.1-1.4); Methemoglobin 0.4 % (0.4-1.5); Oxygen Saturation ABG 94.1; PO2 ABG 72.1 mmHg (80.0-100.0); Potassium Level - ABG 5.6 mmol/L (3.5-5.0); Total Hemoglobin 10.3 g/dL (14-18)
[2022-04-19 17:32] LABS: Alveolar-Arterial Oxygen Gradi 22.9 mmHg (5-10); Blood Gas Operator Identificat ED; Blood Gas Sample Site Radial, left; Oxygen Device NC
[2022-04-19] MEDS: ipratropium-albuterol 3 mL Neb INHALATION ×2 (17:39→23:25)
--- NOTE | 2022-04-19 17:43 | PC.NURSE ---
Patient IV access attempt unsuccessful, kiln charger notified. EMS also made multiple attempts.
--- NOTE | 2022-04-19 18:53 | ECG_ITS ---
[facility] Test Date: 2022-04-19 Pat Name: Jeffrey Brown Department: Room: Gender: Male Manager Proposal: : [phone] Requested By: Rich Gallagher Order Number: [id number] Janet MD: Kristian Villalobos M.D. Measurements Intervals [place] Rate: 83 P: SD: QRS: -12 QRSD: 110 T: 132 QT: 361 QTc: 425 Interpretive Statements ATRIAL FIBRILLATION LOW QRS VOLTAGE [QRS DEFLECTION < 0.5/1.0 mV IN LIMB/CHEST LEADS] ANTERIOR MYOCARDIAL INFARCTION , PROBABLY OLD [40+ ms Q WAVE AND/OR ST/T ABNORMALITY IN V3/V4] INFERIOR MYOCARDIAL INFARCTION , PROBABLY OLD [40+ ms Q WAVE AND/OR ST/T ABNORMALITY IN II/aVF] Compared to ECG 04/19/2022 17:36:56 No significant changes Electronically Signed On 04-20-2022 15:21:55 CDT by Kristian Villalobos M.D. [email or web address]
[2022-04-19] MEDS: ondansetron 2 mg/ML SDV 2 mL 4 MG IVP (18:59)
[2022-04-19 19:00] LABS: Basophils % 0.1 %; Hematocrit 34.5 % (42.0-52.0); Hemoglobin 10.2 g/dL (11.7-16.6); Lymphocytes # 1.6 10^3/uL (0.8-4.8); Lymphocytes % 9.8 %; Mean Corpuscular HGB Conc 29.6 g/dL (30.0-36.0); Mean Corpuscular Hemoglobin 26.5 pg (28.0-34.0); Mean Corpuscular Volume 89.6 fl (80-94); Mean Platelet Volume 10.8 fL (7.4-10.4); Monocytes # 0.9 10^3/uL (0.2-0.9); Monocytes % 5.7 %; Neutrophils # 13.26 10^3/uL (1.8-7.7); Neutrophils % 82.5 %; Nucleated Red Blood Cells # 0.4 /100WBC; Nucleated Red Blood Cells % 2.4 %; Platelet Count 139 10^3/cmm (130-400); Red Blood Count 3.85 10^6/uL (4.1-5.3); Red Cell Distribution Width 16.6 % (12.1-15.1); White Blood Count 16.1 10^3/uL (4.0-10.0)
[2022-04-19 19:17] LABS: Troponin(5th) Baseline 52 ng/L (0-15)
[2022-04-19 19:19] LABS: Alanine Aminotransferase 52 U/L (0-41); Albumin Level 4.6 g/dL (3.5-5.2); Alkaline Phosphatase 38 IU/L (40-130); Anion Gap 25.5 (5-19); Aspartate Amino Transferase 23 U/L (0-40); Calcium 9.3 mg/dL (8.5-10.5); Carbon Dioxide 18 mmol/L (22-29); Chloride 94 mmol/L (98-107); Globulin 2.3 g/dL (1.3-4.6); Glomerular Filtration Rate 16.6 mL/min (90-130); Glucose 259 mg/dL (65-115); Osmolality Calculated 312 mOsm/kg (285-295); Potassium 5.5 mmol/L (3.5-5.1); Sodium 132 mmol/L (136-145); Total Bilirubin 1.1 mg/dL (0.15-1.2); Total Protein 6.9 g/dL (6.6-8.7)
[2022-04-19] MEDS: FUROsemide 10 mg/mL SDV 10mL 60 MG IVP (19:28)
[2022-04-19 19:29] LABS: Blood Urea Nitrogen 93 mg/dL (8-23); Lactic Sepsis W/Reflex 5.1 mmol/L (0.5-2.2)
[2022-04-19] MEDS: levofloxacin-dextrose 5 % 750 MG/150 ML PREMIX 100 MG IV (20:05)
--- NOTE | 2022-04-19 20:13 | CTR_ITS ---
PROCEDURE INFORMATION: Exam: CT Chest Without Contrast; Diagnostic Exam date and time: 04/19/2022 8:40 PM Age: 66 years old Clinical indication: Abdominal tenderness; Dyspnea and wheezing; Additional info: Sepsis, SOB ? pneumonia, josue ? obstruction TECHNIQUE: Imaging protocol: Diagnostic computed tomography of the chest without contrast. Radiation optimization: All CT scans at this facility use at least one of these dose optimization techniques: automated exposure control; mA and/or kV adjustment per patient size (includes targeted exams where dose is matched to clinical indication); or iterative reconstruction. COMPARISON: CT chest con [id number] 03/18/2022 1:55 PM RADIATION DOSE METRICS: Total DLP (mGy-cm): 2322.15 FINDINGS: Lungs: There is some dependent atelectasis at both lung bases. There are some small patchy areas of rounded consolidation in the middle lobe worrisome for multifocal pneumonia. There is also minimal focal infiltrate in the periphery of the lingula. Follow-up studies are suggested to document complete clearing. There is mild interlobular septal thickening especially the dependent portions of the lungs suggesting some mild interstitial edema. This may be due to mild congestive failure. Pleural spaces: There are small bilateral pleural effusions. Heart: There is severe atherosclerotic calcification of the coronary arteries. Lymph nodes: There are mildly prominent prevascular and paratracheal lymph nodes measuring up to 12 x 19 mm. Vasculature: There is mild atherosclerotic calcification in the aortic arch. Bones/joints: Unremarkable. No acute fracture. Soft tissues: Unremarkable. PROCEDURE INFORMATION: Exam: CT Abdomen And Pelvis Without Contrast Exam date and time: 04/19/2022 8:40 PM Age: 66 years old Clinical indication: Abdominal tenderness; Dyspnea and wheezing; Additional info: Sepsis, SOB ? pneumonia, josue ? obstruction TECHNIQUE: Imaging protocol: Computed tomography of the abdomen and pelvis without contrast. Radiation optimization: All CT scans at this facility use at least one of these dose optimization techniques: automated exposure control; mA and/or kV adjustment per patient size (includes targeted exams where dose is matched to clinical indication); or iterative reconstruction. COMPARISON: CT abdomen pelvis con [id number] 08/30/2020 5:24 PM RADIATION DOSE METRICS: Total DLP (mGy-cm): 2322.15 FINDINGS: Limitations: The absence of intravenous contrast lessens the sensitivity of this study for solid organ abnormalities. Study is moderately limited by patient motion. Liver: Liver has somewhat nodular contours suggesting history of cirrhosis. Gallbladder and bile ducts: A calcified gallstone is present. There is moderate nonspecific gallbladder wall thickening. Pancreas: The pancreas is normal. Spleen: There is some nonspecific peripheral calcification within the spleen. There is no splenomegaly. Adrenal glands: The adrenal glands are normal. Kidneys and ureters: The kidneys are normal. There is no evidence of hydronephrosis. There is no evidence of renal or ureteral calcifications. Stomach and bowel: There is no evidence of colitis/diverticulitis. Appendix: A normal appendix is identified. Intraperitoneal space: Some focal density in the mid mesentery could represent some mesenteric fibromatosis but this is not a definite finding due to motion artifact. Vasculature: The aorta demonstrates moderate atherosclerotic calcification. There is mild infrarenal fusiform aneurysm of the abdominal aorta with maximum transverse diameter of 2.5 cm. Lymph nodes: Unremarkable. No enlarged lymph nodes. Urinary bladder: Unremarkable as visualized. Reproductive: The prostate gland demonstrates nonspecific parenchymal calcifications. The prostate demonstrates mild nonspecific enlargement. The seminal vesicles are normal. Bones/joints: The lumbar spine demonstrates mild degenerative changes at multiple levels. Soft tissues: There are bilateral inguinal hernias containing only fat. CT/[place] [id number] IMPRESSION: 1. Patchy right middle lobe pneumonia. 2. Question of mild interstitial edema. 3. Mild cardiomegaly 4. Coronary disease 5. Bilateral pleural effusions. IMPRESSION: 1. Cholelithiasis 2. Moderate gallbladder wall thickening of uncertain significance cholecystitis not excluded. 3. 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 5. Mild abdominal aortic aneurysm. 6. Bilateral inguinal hernias containing fat
[2022-04-19 20:44] LABS: Reflex Lactate Order REFLEX LACTIC ORDERD
[2022-04-19 21:31] LABS: ABG PCO2 32.2 mmHg (35-45); ABG PH Result 7.28 (7.35-7.45); Arterial Blood Gas Hematocrit 31.8 % (42-52); Base Excess ABG -10.7 mmol/L (-2.0-2.0); Blood Gas Allen Test Pos; Blood Gas Operator Identificat ED; Blood Gas Sample Site Radial, left; Blood Gas Sample Type Arterial; Oxygen Device BIPAP
[2022-04-19] MEDS: sodium chloride 0.9% 500 ML 999 ML IV (21:51)
[2022-04-19 21:56] LABS: Add Urine Culture? No; Add Urine Microscopic? YES; Amorphous Sediment Urine 1+ /hpf; Bacteria Urine TRACE /hpf; Bilirubin Urine Neg (Negative); Blood Urine Neg (Negative); Glucose Urine UA Norm (Normal); Ketones Urine Negative (Negative); Leukocyte Esterase Urine Negative (Negative); Nitrate Urine Negative (Negative); Protein Urine 1+ (Negative); RBC Urine 0-4 /hpf (0-2); Specific Gravity, Urine 1.025 (1.005-1.030); Squamous Epithelial Cell Urine 0-4 /hpf (0-5); Urine Appearance Clear (CLEAR); Urine Color Yellow (Yellow); Urobilinogen Urine 1 mg/dL (Negative); WBC Urine 0-4 /hpf (0-5); pH Urine 5 (5-7)
[2022-04-19] MEDS: vancomycin 1,500 MG/300 ML PIGGYBACK 200 MG IV (22:09)
[2022-04-19 22:12] LABS: Troponin 5 2HR 49.78 ng/L (0-15)
[2022-04-19 22:13] LABS: Troponin 5 2HR Delta -2.22 ABS# (0-10)
--- NOTE | 2022-04-19 22:22 | P.HP_ITS ---
Providers/Chief Complaint Admitting Physician: Jian Villalta MD Chief Complaint: RESP DISTRESS History of Present Illness 66-year-old male with past medical history of hypertension diabetes COPD coronary artery disease,HFpEF, CKD stage III, A. fib on chronic anticoagulation, chronic thrombocytopenia, Was admitted with chief complaint of worsening shortness of breath going on for the last few days. History taking has been difficult as the patient is on BiPAP, and is having difficulty with communication. Upon arrival in the ER: CT chest abdpel wo?: Patchy right middle lobe pneumonia. Trace bilateral pleural effusion No acute abdominal pelvic findings. EKG: Atrial fibrillation, LAD Pertinent labs: WBC 16.1 , H&H 10.2 and 34.5 , PLT : 139 , serum sodium 132 serum potassium 4.5, BUN / serum creatinine: 93/ 3.7 Lactic acid 5.1, repeat lactic acid 4.9 Troponin trend: 52 ,49 ABG; pH 7.28, PCO2 32, PO2 116, FiO2 36% on BiPAP Review of Systems General: Reports: 10 or more systems reviewed and unremarkable except in HPI and below Const: Denies: fever(s) or chills Card: Denies: palpitations or swelling of feet/ankles Resp: Reports: dyspnea; Denies: wheezing GI: Denies: abdominal pain, nausea or vomiting Medications/Allergies Home Medications Medication Instructions Recorded Confirmed Last Taken Type atorvastatin 80 mg tablet 80 mg PO QPM 12/28/19 04/19/22 04/18/22 History cholecalciferol (vitamin D3) 50 2,000 unit PO DAILY@1100 12/28/19 04/19/22 04/18/22 History mcg (2,000 unit) tablet ferrous sulfate 325 mg (65 mg 325 mg PO DAILY@1100 12/28/19 04/19/22 04/18/22 History iron) tablet sennosides 8.6 mg capsule (senna) 8.6 mg PO DAILY PRN 12/30/19 04/19/22 01/23/22 History levetiracetam 500 mg tablet 500 mg PO BID #60 tab 01/03/20 04/19/22 04/18/22 Rx (Keppra) pentoxifylline 400 mg 400 mg PO BID 03/17/20 04/19/22 04/18/22 History tablet,extended release tiotropium 2.5 mcg-olodaterol 2.5 2 puff INHALATION DAILY #4 g 11/25/20 04/19/22 04/18/22 Rx mcg/actuation mist for inhalation (Stiolto Respimat) albuterol sulfate 90 mcg/actuation 2 puff INHALATION Q4H PRN 01/31/21 04/19/22 01/23/22 History aerosol inhaler clopidogrel 75 mg tablet (Plavix) 75 mg PO DAILY@1100 01/31/21 04/19/22 04/18/22 History insulin aspart U-100 100 unit/mL 17 unit SUBCUT BEDTIME PRN 01/31/21 04/19/22 04/18/22 History (3 mL) subcutaneous pen (Novolog Flexpen U-100 Insulin aspart) fluticasone propionate 50 2 spray INTRANASAL DAILY PRN 03/23/21 04/19/22 03/23/21 History mcg/actuation nasal spray,suspension tamsulosin 0.4 mg capsule 0.4 mg PO BID@1100,2000 03/23/21 04/19/22 04/18/22 History escitalopram oxalate 10 mg tablet 5 mg PO DAILY #30 tab 04/18/21 04/19/22 04/18/22 Rx apixaban 5 mg tablet (Eliquis) 5 mg PO BID@0900,2100 #180 tab 02/20/22 04/19/22 04/18/22 Rx ipratropium 20 mcg-albuterol 100 1 puff INHALATION QID PRN 03/06/22 04/19/2201/31 History mcg/actuation mist for inhalation multivitamin with iron-mineral 1 tab PO DAILY 03/06/22 04/19/22 04/18/22 History omeprazole 40 mg capsule,delayed 40 mg PO DAILY@11 03/06/22 04/19/22 04/18/22 History release amiodarone 200 mg tablet 200 mg PO DAILY #30 tab 03/21/22 04/19/22 04/18/22 Rx alprazolam 0.5 mg tablet 0.5 mg PO Q8H PRN #15 tab 04/15/22 04/19/22 Unknown Rx diltiazem HCl 360 mg 360 mg PO DAILY #30 cap 04/15/22 04/19/22 04/18/22 Rx capsule,extended release 24 hr (Cardizem CD) doxycycline monohydrate 100 mg 100 mg PO BID #10 tab 04/15/22 04/19/22 04/18/22 Rx tablet furosemide 40 mg tablet 40 mg PO BID@08,16 #60 tab 04/15/22 04/19/22 04/18/22 Rx isosorbide mononitrate 30 mg 15 mg PO DAILY #30 tab 04/15/22 04/19/22 04/18/22 Rx tablet,extended release 24 hr metoprolol tartrate 25 mg tablet 25 mg PO BID #60 tab 04/15/22 04/19/22 04/18/22 Rx prednisone 20 mg tablet 40 mg PO DAILY #14 tab 04/15/22 04/19/22 04/18/22 Rx Allergies Allergy/AdvReac Type Severity Reaction Status Date / Time No Known Allergies Allergy Verified 04/03/22 14:24 PFSH Acute PFSH: Medical History (Updated 04/20/22 @ 13:51 by Yessica May MD) Acute kidney injury superimposed on CKD Acute respiratory failure with hypoxia Aortic regurgitation Atrial fibrillation with slow ventricular response Benign prostatic hyperplasia CAD (coronary artery disease) Cervical disc disorder with myelopathy of mid-cervical region Chronic kidney disease, stage III (moderate) Claustrophobia Congestive heart failure with preserved left ventricular function, NYHA class 1 COPD (chronic obstructive pulmonary disease) moderate obstructive ventilatory defect, significant response to bronchodilators. Lung volumes suggestive of mild air trapping. Mild reduction in gas transfer. Coronary artery calcification CVA (cerebral vascular accident) (~01/2021) clinical diagnosis with dysarthria and confusion, unremarkable work up but unable to perform MRI due to severe claustrophobia Degenerative joint disease of left shoulder Degenerative lumbar disc Depression hospitalization 04/2021 Diabetes mellitus Facet arthropathy, lumbar Frequent UTI Hemoptysis Hepatitis C virus infection resolved after antiviral drug therapy some early cirrhosis, HCC ruled out History of DVT (deep vein thrombosis) (~12/2018) HTN (hypertension), benign Hypertension Lumbar disc disease with radiculopathy Lumbar stenosis with neurogenic claudication Mitral regurgitation Myoclonus dystonia New onset atrial fibrillation Obesity (BMI 30.0-34.9) Peripheral vascular disease Pneumonia Recurrent cystitis Thrombocytopenia 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 Pets and animals: No Current gender identity: Male Vitals/I&O/Wt Last Vital Signs Temp 96.9 F L 04/19/22 16:49 Pulse 92 04/19/22 21:55 Resp 28 H 04/19/22 21:38 BP 129/86 04/19/22 21:38 Pulse Ox 981 H 04/19/22 21:55 04/19/22 04/19/22 04/19/22 06:59 14:59 22:59 Intake Total 650 / 650 Balance 650 / 650 Weight last 48 hrs Weight 108.862 kg Physical Exam HENMT: COMMON NORMALS: normocephalic and atraumatic HEAD & SCALP: normocephalic and atraumatic Chest: CHEST: Yes Symmetrical chest wall rise Resp: EFFORT & INSPECTION: Yes symmetric chest movement AUSCULTATION: clear to auscultation bilaterally OTHER: Diminished air entry bilaterally Cardio: COMMON NORMALS: regular rate, regular rhythm, S1 normal heart sound present, S2 normal heart sound present, No gallops present (Cardio), No murmurs present (Cardio), No rub (Cardio) and Peripheral pulses 2+ throughout RATE: regular rate RHYTHM: regular rhythm HEART SOUNDS: S1 normal heart sound present and S2 normal heart sound present PERIPHERAL PULSES: Peripheral pulses 2+ throughout GI: COMMON NORMALS: Normal to inspection, nondistended, normoactive bowel sounds present, Soft to palpation, non-tender, No hepatosplenomegaly present and no masses AUSCULTATION: Yes normoactive bowel sounds PALPATION: Yes Soft to palpation and Yes No hepatosplenomegaly present RECTAL EXAM: Yes deferred Extremity: COMMON NORMALS: no clubbing, cyanosis or edema and no pedal edema Urinary Catheter Management: Maciel: Cath Placed During This Visit: yes Urinary Catheter Date of Insertion: 04/19/22 Urinary Catheter Time of Insertion: 21:00 Data : 04/20/22 04:16 04/20/22 11:45 Micro: Microbiology 04/19/22 18:54 Blood Culture - Preliminary Blood SPECIMEN COLLECTED 04/19/22 18:52 Blood Culture - Preliminary Blood SPECIMEN COLLECTED A&P Assessment and plan (1) Acute exacerbation of chronic obstructive airways disease: Status: Acute (2) Pneumonia: Status: Acute (3) Acute and chronic respiratory failure: Status: Acute (4) Acute kidney injury superimposed on chronic kidney disease: Status: Acute (5) Congestive heart failure with preserved left ventricular function, NYHA class 1: Status: Acute (6) Thrombocytopenia: Status: Acute (7) Atrial fibrillation: Status: Acute (8) Hyperkalemia: Status: Acute Plan 66-year-old male with past medical history of hypertension diabetes COPD coronary artery disease,HFpEF, CKD stage III, A. fib on chronic anticoagulation, chronic thrombocytopenia, Was admitted with chief complaint of worsening shortness of breath going on for the last few days. Assessment: Septic Shock likely 2/2 PNA S/p cardiac arrest: Hyperkalemia Severe metabolic acidosis Acute on chronic respiratory failure secondary to pneumonia, COPD PRESTON on CKD stage III : Likely prerenal patient is currently dehydrated. Hypertension Diabetes COPD coronary artery disease, HFpEF : Currently compensated A. fib on chronic anticoagulation chronic thrombocytopenia. Plan: Follow blood culture Follow sputum gram stain and culture MRSA PCR Follow procalcitonin Monitor lactic acid Continue Vanco and Zosyn DuoNebs every 4 hours Solu-Medrol 60 IV Q8H Currently intubated, sedated on mechanically ventilation Currently on, Versed, fentanyl Currently on Levophed, vasopressin, phenylephrine, epinephrine On stress dose hydrocortisone S/p 3 Ls normal saline bolus. On heparin drip on bicarb drip Monitor ABG Monitor intake output charting Avoid nephrotoxic's Monitor BMP Patient will need nephrology consult Monitor serum potassium Continue sliding scale insulin Monitor fingerstick glucose Continue Keppra CODE STATUS; full code DVT prophylaxis: Not needed on heparin drip Attestations Medical Necessity Statement*: Patient needs to be in hospital for management of acute on chronic respiratory failure. Anticipated length of stay greater than 2 midnights. Time Spent in Patient Care: Greater than 35 minutes (>than 50% of time spent in counselling and/or direct pt care on unit) . Critical Care Time: The high probability of a clinically significant, sudden or life threatening deterioration of the patient's [] system(s) required my full and direct attention, intervention and personal management. The critical care time is as shown. This time is in addition to time spent performing any reported procedures but includes the following: [x] Data and vital sign review and interpretation [x] Patient assessment, examination and intervention [x] Documentation [x] Medication orders and management Critical Care Time (min): 60 Coding Level of Care Code Acute Product Marketing Intern for [facility] Fwd Exam Detailed Diagnoses Acute exacerbation of chronic obstructive airways disease J44.1 Pneumonia J18.9 Acute and chronic respiratory failure J96.20 Acute kidney injury superimposed on chronic kidney disease N17.9; N18.9 Congestive heart failure with preserved left ventricular function, NYHA class 1 I50.30 Thrombocytopenia D69.6 Atrial fibrillation I48.91 Hyperkalemia E87.5
[2022-04-19] MEDS: LORazepam 2 mg/mL INJ 1 mL IVP (22:23)
[2022-04-19 22:33] LABS: Lactic Acid level (Lactate) 4.9 mmol/L (0.5-2.2)
--- NOTE | 2022-04-19 22:53 | ECG_ITS ---
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 Measurements Intervals Perry Rate: 86 P: [place]: QRS: -40 QRSD: 106 T: 71 QT: 374 QTc: 448 Interpretive Statements ATRIAL FIBRILLATION LEFT AXIS DEVIATION [QRS AXIS < -30] LOW QRS VOLTAGE IN PRECORDIAL LEADS [QRS DEFLECTION < 1.0 mV IN CHEST LEADS] ANTERIOR MYOCARDIAL INFARCTION , PROBABLY OLD [40+ ms Q WAVE AND/OR ST/T ABNORMALITY IN V3/V4] INFERIOR MYOCARDIAL INFARCTION , PROBABLY OLD [40+ ms Q WAVE AND/OR ST/T ABNORMALITY IN II/aVF] Compared to ECG 04/19/2022 20:55:24 Left-axis deviation now present Myocardial infarct finding still present Electronically Signed On 04-20-2022 15:23:37 CDT by Kristian Villalobos M.D. [id number]
[2022-04-20] VITALS (167 sets, daily range): BP systolic 75–167; BP diastolic 35–120; PULSE 31–137; RESP 10–33; TEMP 35.6; O2SAT 63–100; BMI 32.5
[2022-04-20] MEDS: sodium chloride 0.9% 1,000 ML 75 ML IV ×2 (00:13→04:25)
[2022-04-20] MEDS: dexmedeTOMIDine 0.9 % NaCL 400 MCG/100 ML PREMIX IV (00:17)
--- NOTE | 2022-04-20 00:42 | PC.NURSE ---
Patient received from ED with bipap in place. Patient is currently on Precedex drip at 0.2mcg/kg/hr. Patient cleaned and resting. Patient responding to touch and verbal stimuli. Speech is garbled at this time. Will continue to monitor.
--- NOTE | 2022-04-20 00:43 | PC.PHAR ---
Vancomycin is dosed at 750mg IVPB every 24 hours to produce a predicted trough level of 14.71 (population based pharmacokinetic analysis). A trough level has been ordered to be obtained before the third dose to confirm and adjust if needed.
[2022-04-20] MEDS: cefTRIAXone 1,000 MG in sodium chloride 0.9% (plus) 50 ML 100 MG IV (00:49)
[2022-04-20] MEDS: azithromycin 500 MG in sodium chloride 0.9% 250 ML 250 MG IV (01:18)
--- NOTE | 2022-04-20 01:21 | PC.NURSE ---
Patient restless and pulling at winston catheter, bipap and other lines. Increased Precedex drip to 0.3mcg/kg/hr. Patient HR 75, R 18, BP 102/67 SpO2 at 98% on bipap with FiO2 at 36%.
--- NOTE | 2022-04-20 01:36 | PC.NURSE ---
Patient continues to pull at winston and bipap. Says he is not comfortable. Increased Precedex drip as documented. Will continue to monitor.
--- NOTE | 2022-04-20 02:07 | PC.NURSE ---
Dr Villalta in to see patient. Received verbal order to increase Precedex drip to 1mcg/kg/hr at this time. to attempt possible central line.
[2022-04-20] MEDS: norepinephrine 8 MG in dextrose 5 % 500 ML 76.2 MG IV (02:40)
--- NOTE | 2022-04-20 02:53 | PC.NURSE ---
Patient has decreased blood pressure. Precedex drip stopped at 0236. Dr Villalta in room. Levophed drip at 20mcg/min presently with BP of 88/57.
--- NOTE | 2022-04-20 02:55 | PC.NURSE ---
Dr Villalta in room aware of decrease in BP. Received verbal order to start vasopressin.
--- NOTE | 2022-04-20 03:21 | XRR_ITS ---
PROCEDURE INFORMATION: Exam: XR Chest Exam date and time: 04/20/2022 3:32 AM Age: 66 years old Clinical indication: Device placement; Ett placement (vent status); Prior surgery; Surgery type: Cardiac stents; Patient HX: Check S/P intubation TECHNIQUE: Imaging protocol: XR of the chest. Views: 1 view. COMPARISON: [place] [id number] 04/19/2022 8:40 PM FINDINGS: Tubes, catheters and devices: Endotracheal tube terminates approximately 5.7 cm above the sheila. Lungs: Similar patchy bibasilar airspace opacities. Pleural spaces: Small pleural effusions. No pneumothorax. Heart/Mediastinum: Unremarkable. No cardiomegaly. Bones/joints: Unremarkable. XR/XR chest 1V portable [id number] IMPRESSION: 1. Endotracheal tube terminates approximately 5.7 cm above the sheila. 2. Similar patchy bibasilar airspace opacities with small bilateral pleural effusions.
[2022-04-20] MEDS: phenylephrine inj 25 MG in sodium chloride 0.9% 250 ML 24.24 MG IV (03:45)
[2022-04-20] MEDS: EPINEPHrine 2.5 MG in sodium chloride 0.9% 250 ML 24 MG IV (04:25)
[2022-04-20 04:27] LABS: Hematocrit 34.6 % (42.0-52.0); Hemoglobin 9.7 g/dL (11.7-16.6); Mean Corpuscular Hemoglobin 26.6 pg (28.0-34.0); Mean Corpuscular Volume 95.1 fl (80-94); Platelet Count 104 10^3/cmm (130-400); Red Blood Count 3.64 10^6/uL (4.1-5.3); Red Cell Distribution Width 16.5 % (12.1-15.1); White Blood Count 18.1 10^3/uL (4.0-10.0)
--- NOTE | 2022-04-20 04:30 | ECG_ITS ---
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 Measurements Intervals [place]sser Rate: 77 P: OH: QRS: 7 QRSD: 129 T: 81 QT: 368 QTc: 417 Interpretive Statements Wandering atrial pacemaker INFERIOR MYOCARDIAL INFARCTION , OF INDETERMINATE AGE [40+ ms Q WAVE AND/OR ST/T ABNORMALITY IN II/aVF] INTERPRETATION BASED ON A DEFAULT AGE OF 40 YEARS Compared to ECG 04/19/2022 23:35:52 Left-axis deviation no longer present Myocardial infarct finding still present Electronically Signed On 04-20-2022 15:20:04 CDT by Kristian Villalobos M.D. [id number]
[2022-04-20] MEDS: ipratropium-albuterol 3 mL Neb INHALATION ×6 (04:31→23:47)
[2022-04-20 04:37] LABS: ABG PCO2 52.7 mmHg (35-45); ABG PH Result 7.04 (7.35-7.45); PO2 ABG 49.9 mmHg (80.0-100.0)
[2022-04-20 04:38] LABS: HCO3 ABG 14.1 mmol/L (22-26); Oxygen Saturation ABG 65.3
[2022-04-20 04:39] LABS: Oxygen Device AMBU
[2022-04-20 04:40] LABS: Blood Gas Sample Type Arterial
[2022-04-20 04:41] LABS: Blood Gas Sample Site Brachial, left
[2022-04-20 04:44] LABS: Alveolar-Arterial Oxygen Gradi 585.3 mmHg (5-10); Ionized Calcium Level - ABG 1.5 mmol/L (1.1-1.4); Total Hemoglobin 9.7 g/dL (14-18)
[2022-04-20 04:45] LABS: Carboxyhemoglobin 1.3 %THgb (0.4-20.1); HGB O2 Sat 64.1 % (95-100); Methemoglobin 0.5 % (0.4-1.5)
[2022-04-20 04:46] LABS: Arterial Blood Gas Hematocrit 29.7 % (42-52)
--- NOTE | 2022-04-20 04:51 | PC.NURSE ---
Patient became continued with decreased blood pressures and unable to obtain manually as well. Dr Villalta in patient's room several orders for medications placed and administered as documented. Code blue was called at 0403 due to patient not having palpable pulse. 0403 compressions initiated 0404 1mg epinephrine IVP given 0405 pulse check PEA 0406 Compression continue 0406 1 amp bicarb IVP given 1mg epinephrine given 0407 pulse check. Bradycardia 0408 1mg atropine IVP given 0409 calcium IVP 0412 BP 120/79 Dr Villalta in room at this time and ordered additional amp of sodium bicarb to be given which was complete by SUSIE Ochoa. Patient is currently intubated. Family has been notified of patient's conditions.
[2022-04-20 04:55] LABS: Troponin 5 6HR 46.94 ng/L (0-15)
[2022-04-20 05:01] LABS: NT Pro B Type Natriuretic Pept 11449 pg/mL (0-125); Procalcitonin 0.12 ng/mL (0-0.5); Troponin 5 6HR Delta -5.06 ng/L (0-12)
[2022-04-20 05:12] LABS: Anion Gap 28.9 (5-19); Calcium 10.9 mg/dL (8.5-10.5); Carbon Dioxide 14 mmol/L (22-29); Chloride 97 mmol/L (98-107); Glomerular Filtration Rate 15.6 mL/min (90-130); Glucose 335 mg/dL (65-115); Osmolality Calculated 321 mOsm/kg (285-295); Potassium 5.9 mmol/L (3.5-5.1); Sodium 134 mmol/L (136-145)
[2022-04-20 05:13] LABS: Total Cells Counted 100 (0-100)
[2022-04-20 05:14] LABS: Corrected White Blood Count 16.9 10^3/cmm (4.8-10.8); Eosinophils 0 %; Platelet Estimate Decreased (Normal)
[2022-04-20 05:17] LABS: Lactic Sepsis W/Reflex 8.9 mmol/L (0.5-2.2)
--- NOTE | 2022-04-20 05:17 | XRR_ITS ---
PROCEDURE INFORMATION: Exam: XR Chest Exam date and time: 04/20/2022 5:21 AM Age: 66 years old Clinical indication: Prior surgery; Surgery type: Cardiac stents; Patient HX: Post code blue; Additional info: S/P intubation TECHNIQUE: Imaging protocol: XR of the chest. Views: 1 view. COMPARISON: CR (CHEST, ) 04/20/2022 3:32 AM FINDINGS: Tubes, catheters and devices: Endotracheal tube terminates approximately 5.3 cm above the sheila. Enteric tube passes into the stomach. Defibrillator pad overlies the thorax. Lungs: Similar patchy bibasilar airspace opacities. Pleural spaces: Similar small bilateral pleural effusions. No pneumothorax. Heart/Mediastinum: Unremarkable. No cardiomegaly. Bones/joints: Unremarkable. XR/XR chest 1V portable [id number] IMPRESSION: 1. Endotracheal tube terminates approximately 5.3 cm above the sheila. 2. Similar patchy bibasilar airspace opacities with small bilateral pleural effusions.
[2022-04-20 05:18] LABS: Blood Urea Nitrogen 97 mg/dL (8-23)
--- NOTE | 2022-04-20 05:29 | PM.CCNAC ---
Critical Care Event Note 66-year-old male with past medical history of hypertension diabetes COPD coronary artery disease,HFpEF, CKD stage III, A. fib on chronic anticoagulation, chronic thrombocytopenia admitted for management of sepsis secondary to pneumonia, started having low blood pressure, manual blood pressure was also attempted but no blood pressure was obtained, subsequently patient lost pulse, CODE BLUE was initiated, high-quality chest compressions was Initiated, initial rhythm was PEA, ACLS protocol was followed, patient received 2 amp of epi, 1 amp of bicarb, 1 amp of calcium, ROSC was achieved, post ROSC patient was bradycardic, received atropine 1 mg. Postcode labs and EKG was obtained. Necessary changes were made. The high probability of a clinically significant, sudden or life threatening deterioration of the patient's [] system(s) required my full and direct attention, intervention and personal management. The critical care time is as shown. This time is in addition to time spent performing any reported procedures but includes the following: [x] Data and vital sign review and interpretation [x] Patient assessment, examination and intervention [x] Documentation [x] Medication orders and management Critical Care Time Code activated: Yes Critical Care Time (min): 60 Coding Level of Care Code Acute Iuss Acoustic Analyst for [facility]ol[facility]
--- NOTE | 2022-04-20 05:29 | PM.ACPR ---
Acute Procedures Central Line Placement: Right Femoral: Time out performed: Yes Patient placed on monitor/pulse ox: Yes MD prep: mask, gown and gloves Central line prep: Chlorhexidine scrub Local anesthesia used: lidocaine 2% Ultrasound used for placement: Yes Central line lumen inserted: triple Post procedure: sutured in place, good blood return, all ports aspirated, flushed, capped and sterile dressing applied Patient tolerated procedure: well and no complications
--- NOTE | 2022-04-20 05:50 | PM.ACPR ---
Acute Procedures Intubation: Time out performed: Yes Sedative: etomidate Mg given: 30 Paralytic: succinylcholine Mg given: 130 Laryngoscope: fiber optic video scope ET tube size: 8 ET tube uncuffed: Yes Tube secured depth (cm): 27 Tube secured location: lips Tube placement confirmation: visualized tube passing through cords, equal breath sounds bilaterally, no breath sounds over epigastrium, confirmation by capnometry and color change noted Patient tolerated procedure: well and no complications
[2022-04-20 05:58] LABS: ABG PCO2 33.7 mmHg (35-45); Arterial Blood Gas Hematocrit 30.8 % (42-52); Base Excess ABG -18.5 mmol/L (-2.0-2.0); Blood Gas Allen Test Pos; Blood Gas Sample Type Arterial; Carboxyhemoglobin 1.3 %THgb (0.4-20.1); HCO3 ABG 10.2 mmol/L (22-26); HGB O2 Sat 96.9 % (95-100); Ionized Calcium Level - ABG 1.1 mmol/L (1.1-1.4); Methemoglobin 0.2 % (0.4-1.5); Oxygen Saturation ABG 98.3; Potassium Level - ABG 5.9 mmol/L (3.5-5.0); Total Hemoglobin 10.1 g/dL (14-18)
[2022-04-20 06:00] LABS: Alveolar-Arterial Oxygen Gradi 69.4 mmHg (5-10); Blood Gas Operator Identificat MONRO; Blood Gas Sample Site Radial, left; Oxygen Device VENT
[2022-04-20 06:06] LABS: ABG PH Result 7.09 (7.35-7.45)
[2022-04-20 06:13] LABS: Reflex Lactate Order REFLEX LACTIC ORDERD
[2022-04-20] MEDS: sodium bicarbonate 150 MEQ in dextrose 5% 1,000 ML 125 MEQ IV ×2 (06:17→15:22)
[2022-04-20] MEDS: heparin 5,000 unit/mL INJ 1 mL IV (06:32)
[2022-04-20] MEDS: heparin drip 25,000 UNIT/500 ML PREMIX 31 UNIT IV (06:34)
[2022-04-20] MEDS: hydrocortisone 100 mg/2 mL SDV IVP (06:36)
[2022-04-20] MEDS: dextrose 50% syringe 50 mL IVP (06:47)
[2022-04-20] MEDS: insulin regular-human 100 units/1 mL 10 UNIT IVP (06:53)
[2022-04-20] MEDS: piperacillin-tazobactam 3.375 GM in sodium chloride 0.9% (plus) 50 ML IV ×2 (07:33→15:17)
[2022-04-20] MEDS: norepinephrine 8 MG in dextrose 5 % 500 ML 342.9 MG IV ×2 (07:51→10:08)
[2022-04-20 08:15] LABS: Glucose Point of Care 522 mg/dL (70-110)
[2022-04-20 08:15] LABS: Glucose Point of Care 519 mg/dL (70-110)
[2022-04-20] MEDS: pantoprazole 40 mg SDV IVP (08:18)
[2022-04-20] MEDS: phenylephrine inj 25 MG in sodium chloride 0.9% 250 ML 115.14 MG IV (08:18)
[2022-04-20] MEDS: hydrocortisone 100 mg/2 mL SDV 50 MG IVP (08:19)
[2022-04-20 08:29] LABS: Segmented Neutrophils 70 %
[2022-04-20 08:30] LABS: Absolute Neutrophil 13.8 10^3/cmm (1.4-6.5); Absolute Segmented Neutrophil 12.7 10/cmm (1.6-7.1); Band Neutrophils Absolute 1.1 10^3/cmm (0.0-1.2); Giant Platelets 1+; Lymphocytes 8 %; Lymphocytes Absolute 1.4 10^3/cmm (1.2-3.4); Monocytes Absolute 0.9 10^3/cmm (0.1-0.6)
[2022-04-20 08:31] LABS: Anisocytosis 2+; Microcytosis Trace; Polychromasia 1+
--- NOTE | 2022-04-20 08:31 | USCV_ITS ---
Jeffrey Brown Age: 66 Gender: M : 1955 Exam Date: 04/20/2022 09:45 Ordering Phys: Yessica May MD Technologist: Fernando Sandoval [place] [facility] [place]: cardiac arrest BP: 113 / 68 HR: 70 Rhythm: Sinus Technical Quality: Adequate MEASUREMENTS (Male / Female) Normal Values 2D ECHO LV Diastolic Diameter PLAX 5.3 cm 4.2 - 5.9 / 3.9 - 5.3 cm LV Systolic Diameter PLAX 3.5 cm IVS Diastolic Thickness 1.0 cm 0.6 - 1.0 / 0.6 - 0.9 cm IVS Systolic Thickness 1.1 cm LVPW Diastolic Thickness 1.2 cm 0.6 - 1.0 / 0.6 - 0.9 cm LVPW Systolic Thickness 1.2 cm LVOT Diameter 2.0 cm LV Ejection Fraction 2D Teich 61.0 % LV Ejection Fraction MOD 2C 53.7 % LV Ejection Fraction 2C AL 53.4 % LA Diameter 3.7 cm LA Width 4.5 cm LA Height 4.9 cm RA Width 4.2 cm RA Height 4.1 cm Aorta at Sinotubular Diameter 2.6 cm IVC Diameter 2.3 cm M-MODE Aortic Annulus Diameter 2.9 cm LA Ao Ratio MM 1.3 MV E Point Septal Separation 0.5 cm DOPPLER AV Peak Velocity 253.3 cm/s LVOT Peak Velocity 162.7 cm/s AV Area Cont Eq vti 2.0 cm squared AV Area Cont Eq pk 2.1 cm squared MV Peak Velocity 210.0 cm/s MV Area PHT 4.6 cm squared Mitral E to A Ratio 2.1 MV E' Velocity 88.0 cm/s Mitral E to LV E' Lateral Ratio 6.6 TR Peak Velocity 355.5 cm/s TR Peak Gradient 50.6 mmHg TR Mean Velocity 248.7 cm/s TR Mean Gradient 27.9 mmHg TR Velocity Time Integral 86.6 cm Right Atrial Pressure 8.0 mmHg Pulmonary Artery Systolic Pressu 58.6 mmHg RV Acceleration Time 0.1 s RV Ejection Time 0.2 s RV AcT/ET 0.3 FINDINGS Left Ventricle Normal left ventricular size. LV systolic function is normal with EF of 55-60%. No regional wall motion abnormalities. Right Ventricle The right ventricle is normal in size and function. Right Atrium The right atrium is normal in size. Left Atrium The left atrium is normal in size. Mitral Valve Moderate mitral annular calcification. Mild mitral stenosis with mean gradient across mitral valve of 4.1 mmHg. There is mild to moderate mitral regurgitation. Aortic Valve Aortic valve is thickened and calcified. Mild aortic stenosis is seen with aortic valve area of 1.73 cm squared and mean gradient across aortic valve of 16.4 mmHg. There is mild to moderate aortic regurgitation. Tricuspid Valve Structurally normal tricuspid valve without significant stenosis. Mild to moderate tricuspid regurgitation. RVSP is 60 mmHg. Moderate to severe pulmonary hypertension Pulmonic Valve Not well-visualized Pericardium Normal pericardium without effusion. Aorta Normal ascending aorta dimension. IVC CONCLUSIONS LV systolic function is normal with EF of 55-60% Moderate mitral annular calcification. Mild mitral stenosis with mean gradient across mitral valve of 4.1 mmHg. There is mild to moderate mitral regurgitation. Aortic valve is thickened and calcified. Mild aortic stenosis is seen with aortic valve area of 1.73 cm squared and mean gradient across aortic valve of 16.4 mmHg. There is mild to moderate aortic regurgitation. Mild to moderate tricuspid regurgitation. RVSP is 60 mmHg. Moderate to severe pulmonary hypertension Compared to prior echocardiogram from 01/2021, patient now has moderate to severe pulmonary hypertension. Eloy Otoole MD (Electronically Signed) Final Date: 20 April 2022 18:11 S
[2022-04-20 08:32] LABS: Acanthocytes 1+; Burr Cells 2+; Macrocytosis 1+; Ovalocytes 3+; Target Cells 1+
[2022-04-20 08:50] LABS: ABG PCO2 33.8 mmHg (35-45); Alveolar-Arterial Oxygen Gradi 59.3 mmHg (5-10); Base Excess ABG -16.1 mmol/L (-2.0-2.0); Blood Gas Allen Test Pos; Blood Gas Operator Identificat CAK; Blood Gas Sample Site Brachial, left; Blood Gas Sample Type Arterial; Carboxyhemoglobin 1.3 %THgb (0.4-20.1); HCO3 ABG 11.7 mmol/L (22-26); HGB O2 Sat 97.6 % (95-100); Ionized Calcium Level - ABG 1.1 mmol/L (1.1-1.4); Methemoglobin 0.4 % (0.4-1.5); Oxygen Device VENT; Oxygen Saturation ABG 99.2; Potassium Level - ABG 5.7 mmol/L (3.5-5.0); Total Hemoglobin 10.1 g/dL (14-18)
[2022-04-20 08:51] LABS: ABG PH Result 7.15 (7.35-7.45)
[2022-04-20] MEDS: calcium gluconate 0.9% NaCL 1 GM/50 ML PREMIX IV (09:29)
[2022-04-20] MEDS: insulin lispro 100 unit/1 mL 20 UNIT SUBCUT (09:29)
[2022-04-20 09:34] LABS: Lactic Acid level (Lactate) 9.1 mmol/L (0.5-2.2)
[2022-04-20] MEDS: insulin regular-human 250 UNIT in sodium chloride 0.9% 250 ML 15.8 UNIT IV (09:35)
[2022-04-20 09:56] LABS: Glucose Point of Care 588 mg/dL (70-110)
[2022-04-20] MEDS: tamsulosin 0.4 mg Capsule PO (10:51)
[2022-04-20] MEDS: clopidogrel 75 mg Tablet PO (10:51)
[2022-04-20] MEDS: cholecalciferol (vitamin D3) 1,000 unit Tablet 2000 UNIT PO (10:51)
[2022-04-20 11:05] LABS: Glucose Point of Care 568 mg/dL (70-110)
[2022-04-20] MEDS: norepinephrine 8 MG in dextrose 5 % 500 ML 266.7 MG IV (11:39)
[2022-04-20 12:23] LABS: Anion Gap 27.3 (5-19); Calcium 7.6 mg/dL (8.5-10.5); Carbon Dioxide 15 mmol/L (22-29); Chloride 86 mmol/L (98-107); Glomerular Filtration Rate 15.6 mL/min (90-130); Osmolality Calculated 314 mOsm/kg (285-295); Potassium 5.3 mmol/L (3.5-5.1); Sodium 123 mmol/L (136-145)
[2022-04-20 12:30] LABS: Blood Urea Nitrogen 93 mg/dL (8-23); Glucose 632 mg/dL (65-115)
[2022-04-20 13:15] LABS: Glucose Point of Care > 600 mg/dL (70-110)
[2022-04-20 13:29] LABS: Partial Thromboplastin Time 227.9 SECONDS (23.9-36.7)
--- NOTE | 2022-04-20 13:46 | PM.PN ---
Subjective Subjective: H&P and overnight events reported was at the bedside She was very upset about previous discharg from the hospital I did discuss with the that most likely because of severe acidosis, potassium abnormality and ongoing pneumonia with underlying COPD resulted in PEA His neurological status is unknown however he has multiorgan failure high risk of mortality and morbidity I have discontinued phenylephrine Continue levo and vasopressin and epi for now Continue bicarb drip with D5 Hyperglycemia start insulin drip, requested pharmacy to change his medications formulation from D5 to normal saline Repeat labs in the evening Repeat ABG now For hyperkalemia given calcium gluconate and started insulin drip Check serum ketones to rule out DKA Vitals/I&O/Wt Last Vital Signs Temp 96.1 F L 04/20/22 08:00 Pulse 70 04/20/22 12:10 Resp 20 H 04/20/22 11:25 BP 136/54 04/20/22 12:10 Pulse Ox 93 04/20/22 12:10 04/19/22 04/20/22 04/20/22 22:59 06:59 14:59 Intake Total 650 / 650 2049.898 / 2699.898 2843.837 / 2843.837 Balance 650 / 650 2049.898 / 2699.898 2843.837 / 2843.837 Weight last 48 hrs Weight 106 kg Weight 108.862 kg Physical Exam Narrative: Patient is intubated and sedated Morbidly obese Bilateral breath sounds with crackles Distended abdomen Signs of edema of legs Left leg amputee Currently on 3 vasopressors Rhythm is sinus Urinary Catheter Management: Maciel: Cath Placed During This Visit: yes Reason for Continuing Indwelling Catheter: Acute Urinary Retention or Obstruction Urinary Catheter Date of Insertion: 04/19/22 Urinary Catheter Time of Insertion: 21:00 Data : 04/20/22 04:16 04/20/22 11:45 Micro: Microbiology 04/19/22 18:54 Blood Culture - Preliminary Blood SPECIMEN COLLECTED 04/19/22 18:52 Blood Culture - Preliminary Blood SPECIMEN COLLECTED A&P Assessment and plan (1) Atrial fibrillation: Status: Acute (2) Acute exacerbation of chronic obstructive airways disease: Status: Acute (3) Pneumonia: Status: Acute (4) Sepsis: Status: Acute (5) Acute and chronic respiratory failure: Status: Acute (6) Hyperkalemia: Status: Acute (7) Acute kidney injury superimposed on chronic kidney disease: Status: Acute (8) Congestive heart failure with preserved left ventricular function, NYHA class 1: Status: Acute (9) Thrombocytopenia: Status: Acute (10) Metabolic acidosis: Status: Acute (11) Hyperglycemia: Status: Acute Plan Cardiac arrest Most likely related to hypoxia, acidosis and hyperkalemia Troponin trending down Will request echo Neurological status is unknown Successful return of ROSC TTM not initiated after code He is afebrile Multiorgan failure Severe metabolic acidosis Septic shock Currently on 3 pressors, discontinue phenylephrine Discontinue steroids for now Blood pressure is stable, titrate off vasopressors Repeat lactic at 4 PM Recheck labs at 4 PM COPD exacerbation: Secondary to pneumonia I will add cefepime as she was recently in the hospital I will do vancomycin and cefepime and Zosyn for double pseudomonal coverage Diastolic congestive heart failure acute exacerbation due to sepsis Judicious use of fluids because of underlying congestive heart failure Currently on pressors Monitor urine output Severe metabolic acidosis due to lactic acidemia and uremia Rule out DKA Requested ketones Start insulin drip Start bicarb drip Calcium gluconate given for hypocalcemia Hyperkalemia: Calcium gluconate given, with insulin gtt anticipating improvement of potassium Patient carries history of thrombocytopenia He has been started on heparin, APTT is higher hold heparin drip for 4 hours and restart after decreasing 2 units Check D-dimer Troponin trending down My suspicion for myocardial infarction is low Acute on chronic kidney disease due to sepsis Guarded prognosis high risk of mortality and morbidity This was clearly conveyed to his , all questions were answered Patient remains full code Patient has liver cirrhosis Gallbladder ultrasound, check CMP in the morning, check ammonia Attestations Medical Necessity Statement*: Guarded prognosis, continue ICU care, Time Spent in Patient Care: 40mins Coding Level of Care Code Acute 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
[2022-04-20 13:50] LABS: Glucose Point of Care 530 mg/dL (70-110)
[2022-04-20] MEDS: cefepime 1,000 MG in sodium chloride 0.9% (plus) 50 ML 100 MG IV (14:00)
--- NOTE | 2022-04-20 14:01 | USR_ITS ---
PROCEDURE INFORMATION: Exam: US Duplex Lower Extremity Veins, Bilateral Exam date and time: 04/20/2022 4:14 PM Age: 66 years old Clinical indication: Other: Pea; Prior surgery; Surgery date: 6+ months; Surgery type: Left lower extremity stent and amputation below knee. TECHNIQUE: Imaging protocol: Real-time Duplex ultrasound of the bilateral extremities with 2-D gallardo scale, color Doppler flow and spectral waveform analysis with image documentation. Complete exam focused on the bilateral lower extremity veins. COMPARISON: CTA AbdAorta Runoff Leg [id number] 03/20/2019 10:03 AM FINDINGS: Right deep veins: Unremarkable. The common femoral, femoral, proximal profunda femoral and popliteal veins are patent without thrombus. Normal Doppler waveforms. Normal compressibility and/or augmentation response. Right superficial veins: Saphenofemoral junction is patent without thrombus. Left deep veins: Partially occlusive thrombus in the proximal and mid superficial femoral vein which appears occluded more distally. Left common femoral vein is patent. Left superficial veins: Saphenofemoral junction is patent without thrombus. Soft tissues: Unremarkable. Other findings: Occluded left SFA stent. US/[place] [id number] IMPRESSION: 1. Nonocclusive DVT in the proximal and mid superficial femoral vein which appears occlusive more distally. 2. No findings of DVT in the right lower extremity. 3. Occluded left superficial femoral artery stent.
[2022-04-20 14:06] LABS: Ketone (Acetest) Serum Negative (Negative)
[2022-04-20 14:25] LABS: D Dimer 2.48 ug/mIFEU (0-0.59)
[2022-04-20 14:34] LABS: Glucose Point of Care 460 mg/dL (70-110)
[2022-04-20 15:30] LABS: Glucose Point of Care 458 mg/dL (70-110)
[2022-04-20 15:52] LABS: ABG PCO2 45.9 mmHg (35-45); Base Excess ABG -8.2 mmol/L (-2.0-2.0); Blood Gas Operator Identificat CAK; Oxygen Device VENT; PO2 ABG 75.2 mmHg (80.0-100.0)
[2022-04-20 15:53] LABS: Arterial Blood Gas Hematocrit 30.7 % (42-52); Blood Gas Drawn By CAK; Blood Gas Vent Mode SIMV
[2022-04-20 16:45] LABS: Glucose Point of Care 414 mg/dL (70-110)
[2022-04-20 16:52] LABS: ABG PH Result 7.23 (7.35-7.45); Blood Gas Allen Test Pos; Blood Gas Sample Site Radial, left; Blood Gas Sample Type Arterial; Blood Gas Tidal Volume 0.55
[2022-04-20 17:02] LABS: Basophils # 0.1 10^3/uL (0.0-0.1); Basophils % 0.3 %; Lymphocytes # 0.5 10^3/uL (0.8-4.8); Lymphocytes % 2.3 %; Mean Corpuscular HGB Conc 29.4 g/dL (30.0-36.0); Mean Corpuscular Volume 88.5 fl (80-94); Monocytes # 1.1 10^3/uL (0.2-0.9); Monocytes % 5.4 %; Neutrophils # 18.57 10^3/uL (1.8-7.7); Neutrophils % 88.2 %; Nucleated Red Blood Cells # 2.5 /100WBC; Nucleated Red Blood Cells % 11.9 %; Platelet Count 125 10^3/cmm (130-400); Red Blood Count 3.84 10^6/uL (4.1-5.3); Red Cell Distribution Width 16.2 % (12.1-15.1)
[2022-04-20 17:20] LABS: Albumin Level 3.5 g/dL (3.5-5.2); Alkaline Phosphatase 33 IU/L (40-130); Anion Gap 21.7 (5-19); Calcium 7.5 mg/dL (8.5-10.5); Carbon Dioxide 19 mmol/L (22-29); Chloride 91 mmol/L (98-107); Globulin 2.4 g/dL (1.3-4.6); Glomerular Filtration Rate 16.6 mL/min (90-130); Glucose 349 mg/dL (65-115); Osmolality Calculated 305 mOsm/kg (285-295); Potassium 4.7 mmol/L (3.5-5.1); Sodium 127 mmol/L (136-145); Total Bilirubin 1.8 mg/dL (0.15-1.2); Total Protein 5.9 g/dL (6.6-8.7)
[2022-04-20 17:22] LABS: Lactate (Lactic Acid level) 3.3 mmol/L (0.5-2.2)
[2022-04-20 17:34] LABS: Alanine Aminotransferase 1953 U/L (0-41); Aspartate Amino Transferase 1774 U/L (0-40)
[2022-04-20 17:36] LABS: Blood Urea Nitrogen 89 mg/dL (8-23)
[2022-04-20 17:40] LABS: Slide Review Slide Review Perform
[2022-04-20 17:41] LABS: Mean Platelet Volume 11.9 fL (7.4-10.4)
[2022-04-20 17:45] LABS: Glucose Point of Care 341 mg/dL (70-110)
--- NOTE | 2022-04-20 17:51 | PC.NURSE ---
Spoke with Dr. Thomas on the phone concerning bilateral LE doppler. MD reports positive DVT on L side, occlusive and nonocclusive. Also, occluded stent in LSFA. Previously noted. Hospitalist notified.
[2022-04-20] MEDS: atorvastatin 40 mg Tablet 80 MG PO (17:59)
[2022-04-20] MEDS: insulin regular-human 250 UNIT in sodium chloride 0.9% 250 ML 28.1 UNIT IV (18:47)
[2022-04-20 19:14] LABS: Glucose Point of Care 263 mg/dL (70-110)
[2022-04-20 20:18] LABS: Glucose Point of Care 201 mg/dL (70-110)
[2022-04-20 22:16] LABS: Glucose Point of Care 157 mg/dL (70-110)
[2022-04-20 22:16] LABS: Glucose Point of Care 137 mg/dL (70-110)
[2022-04-20 23:57] LABS: Glucose Point of Care 136 mg/dL (70-110)
[2022-04-20 23:57] LABS: Glucose Point of Care 126 mg/dL (70-110)
[2022-04-21] VITALS (98 sets, daily range): BP systolic 107–134; BP diastolic 48–87; PULSE 66–154; RESP 20–30; TEMP 36.4–37.8; O2SAT 94–99
[2022-04-21 00:09] LABS: Calcium 7.7 mg/dL (8.5-10.5); Carbon Dioxide 24 mmol/L (22-29); Chloride 94 mmol/L (98-107); Glomerular Filtration Rate 16.6 mL/min (90-130); Glucose 125 mg/dL (65-115); Osmolality Calculated 306 mOsm/kg (285-295); Sodium 134 mmol/L (136-145)
[2022-04-21 00:12] LABS: Partial Thromboplastin Time 115.9 SECONDS (23.9-36.7)
[2022-04-21 00:18] LABS: Blood Urea Nitrogen 88 mg/dL (8-23)
[2022-04-21] MEDS: EPINEPHrine 2.5 MG in sodium chloride 0.9% 250 ML 6.42 MG IV (00:34)
[2022-04-21 01:11] LABS: Glucose Point of Care 116 mg/dL (70-110)
[2022-04-21 02:11] LABS: Glucose Point of Care 123 mg/dL (70-110)
[2022-04-21] MEDS: cefepime 1,000 MG in sodium chloride 0.9% (plus) 50 ML 100 MG IV ×2 (02:23→13:10)
[2022-04-21 03:00] LABS: ABG PCO2 36.4 mmHg (35-45); ABG PH Result 7.43 (7.35-7.45); Arterial Blood Gas Hematocrit 29.4 % (42-52); Base Excess ABG -0.1 mmol/L (-2.0-2.0); Blood Gas Allen Test Pos; Blood Gas Sample Type Arterial; Carboxyhemoglobin 1.5 %THgb (0.4-20.1); HCO3 ABG 24.1 mmol/L (22-26); HGB O2 Sat 98.8 % (95-100); Ionized Calcium Level - ABG 1.1 mmol/L (1.1-1.4); Oxygen Saturation ABG > 100.0; Potassium Level - ABG 3.7 mmol/L (3.5-5.0); Total Hemoglobin 9.6 g/dL (14-18)
[2022-04-21 03:02] LABS: Alveolar-Arterial Oxygen Gradi 30.9 mmHg (5-10); Blood Gas Operator Identificat MONRO; Blood Gas Sample Site Brachial, right; Blood Gas Tidal Volume 0.55; Oxygen Device VENT
[2022-04-21] MEDS: ipratropium-albuterol 3 mL Neb INHALATION ×6 (03:05→20:16)
[2022-04-21 03:19] LABS: Glucose Point of Care 131 mg/dL (70-110)
[2022-04-21] MEDS: calcium gluconate 0.9% NaCL 1 GM/50 ML PREMIX IV (03:24)
[2022-04-21] MEDS: piperacillin-tazobactam 3.375 GM in sodium chloride 0.9% (plus) 50 ML IV ×2 (03:25→16:03)
[2022-04-21 05:04] LABS: Glucose Point of Care 141 mg/dL (70-110)
[2022-04-21 05:04] LABS: Glucose Point of Care 156 mg/dL (70-110)
[2022-04-21] MEDS: heparin drip 25,000 UNIT/500 ML PREMIX 23 UNIT IV (05:52)
[2022-04-21 06:00] LABS: Basophils % 0.1 %; Hematocrit 28.9 % (42.0-52.0); Lymphocytes # 0.7 10^3/uL (0.8-4.8); Mean Corpuscular HGB Conc 31.1 g/dL (30.0-36.0); Mean Corpuscular Hemoglobin 26.5 pg (28.0-34.0); Mean Platelet Volume 11.7 fL (7.4-10.4); Monocytes # 0.4 10^3/uL (0.2-0.9); Monocytes % 2.4 %; Neutrophils % 92.4 %; Nucleated Red Blood Cells # 0.2 /100WBC; Nucleated Red Blood Cells % 1.2 %; Platelet Count 75 10^3/cmm (130-400); Red Cell Distribution Width 16.1 % (12.1-15.1)
[2022-04-21 06:22] LABS: Anion Gap 18.8 (5-19); Calcium 7.9 mg/dL (8.5-10.5); Carbon Dioxide 24 mmol/L (22-29); Chloride 97 mmol/L (98-107); Glomerular Filtration Rate 16.6 mL/min (90-130); Glucose 157 mg/dL (65-115); Osmolality Calculated 310 mOsm/kg (285-295); Potassium 3.8 mmol/L (3.5-5.1); Sodium 136 mmol/L (136-145)
[2022-04-21 06:23] LABS: Glucose Point of Care 155 mg/dL (70-110)
[2022-04-21 06:25] LABS: Partial Thromboplastin Time 136.4 SECONDS (23.9-36.7)
[2022-04-21 06:32] LABS: Blood Urea Nitrogen 83 mg/dL (8-23)
[2022-04-21 07:54] LABS: Slide Review Slide Review Perform
[2022-04-21] MEDS: pantoprazole 40 mg SDV IVP (08:00)
[2022-04-21] MEDS: sodium chloride 0.9% 1,000 ML 75 ML IV (08:02)
[2022-04-21 08:19] LABS: Glucose Point of Care 207 mg/dL (70-110)
[2022-04-21 08:19] LABS: Glucose Point of Care 175 mg/dL (70-110)
[2022-04-21 09:02] LABS: Glucose Point of Care 167 mg/dL (70-110)
[2022-04-21] MEDS: clopidogrel 75 mg Tablet PO (10:06)
[2022-04-21] MEDS: cholecalciferol (vitamin D3) 1,000 unit Tablet 2000 UNIT PO (10:06)
[2022-04-21] MEDS: tamsulosin 0.4 mg Capsule PO (10:07)
[2022-04-21 10:08] LABS: Glucose Point of Care 178 mg/dL (70-110)
--- NOTE | 2022-04-21 10:25 | PC.CHAP ---
Pastoral Care Encounter/Spiritual Assessment Type of Contact [] Declined claim rep visit [] Patient/Family/Request visit [] Outpatient visit [] Follow-up visit [] Physician referral [] Code/Alert [x] Routine visit [] Staff referral [] Actively dying [] Patient sleeping [x] Family support [] [] Out of room [] Palliative care [] [] Receiving care in room [] Pre-surgical visit [] Trauma [] Long length of stay [x] ICU visit [x] Other: vent.. prayed with patient and brother Relational/Emotional Strength [] Patient feels connected with others/family/visitors/staff [] Distress [] Loneliness/isolation [] Abandonment Spirituality of Patient [] Person of [place] [] Attends Pentecostalism of their [place] [] Believes in Prayer [] Reads Bible or Congregational materials [] There are Spiritual issues to be addressed Golf Course Superintendent Interventions [x] Prayer [] Active listening [] Non-anxious presence [] Spiritual/emotional support [] Crisis/trauma care [] Spiritual counseling [] Bereavement support [] Provided bereavement packet [] Provided Bible/devotional materials [] Provided toy/stuffed animal, coloring book to patient or family member [] Provided Communion [] Anointing/[place] [] Salvation [x] Completed spiritual assessment [] Other: Impact on Illness or Injury [] Angry [] Fearful [] Anxious [] Often cries [] Exhaustion [] Unable to work [] Unable to attend church [] Unable to walk/stand [] Unable to read [] Unable to drive [] Unable to eat/drink [] Unable to sleep [] Unable to be with family [] Patient intubated [] Other: Summary Time spent with patient
[2022-04-21 11:14] LABS: Glucose Point of Care 171 mg/dL (70-110)
[2022-04-21 12:11] LABS: Glucose Point of Care 152 mg/dL (70-110)
--- NOTE | 2022-04-21 12:51 | P.PN_ITS ---
Subjective Subjective: Right leg extensive DVT Chronically occluded left-sided SFA Suspicion high for PE related PEA This morning leukocytosis trending down No fever however noticed myoclonus Requested Benson to discontinue epi and continue levo, continue fentanyl cut back on Versed We will give 1 dose of Lasix Discontinue fluids Start tube feeds by tomorrow Bicarb drip has been turned off Vent settings FiO2 40% PEEP 8 Vitals/I&O/Wt Last Vital Signs Temp 97.6 F 04/21/22 08:00 Pulse 83 04/21/22 12:30 Resp 20 H 04/21/22 11:04 BP 115/56 04/21/22 12:30 Pulse Ox 99 04/21/22 12:30 04/20/22 04/21/22 04/21/22 22:59 06:59 14:59 Intake Total 2780.334 / 6129.494 1817.642 / 7947.136 640.569 / 640.569 Output Total 2150 / 2150 1200 / 3350 Balance 630.334 / 3979.494 617.642 / 4597.136 640.569 / 640.569 Weight last 48 hrs Weight 106 kg Weight 108.862 kg Physical Exam Narrative: Patient intubated and sedated Myoclonus noted No fever Edema of right leg noted Left leg amputee Abdomen distended Pinpoint pupils Neuro exam limited Assisted bilateral breath sounds S1, S2 sinus rhythm Urinary Catheter Management: Maciel: Cath Placed During This Visit: yes Reason for Continuing Indwelling Catheter: Accurate Measurement of Urinary Output in Critically Ill Patients Urinary Catheter Date of Insertion: 04/19/22 Urinary Catheter Time of Insertion: 21:00 Data : 04/21/22 05:00 04/21/22 05:00 Micro: Microbiology 04/19/22 18:54 Blood Culture - Preliminary Blood NEGATIVE TO DATE 04/19/22 18:52 Blood Culture - Preliminary Blood NEGATIVE TO DATE 04/20/22 11:35 Gram Stain - Final Sputum - Endotracheal Tube Aspirate 04/20/22 11:45 MRSA Culture - Final Nose A&P Assessment and plan (1) Hyperglycemia: Status: Acute (2) Metabolic acidosis: Status: Acute (3) Hyperkalemia: Status: Acute (4) Atrial fibrillation: Status: Acute (5) Acute exacerbation of chronic obstructive airways disease: Status: Acute (6) Pneumonia: Status: Acute (7) Sepsis: Status: Acute (8) Acute kidney injury superimposed on chronic kidney disease: Status: Acute (9) Congestive heart failure with preserved left ventricular function, NYHA class 1: Status: Acute (10) Thrombocytopenia: Status: Acute Plan Cardiac arrest It could be related to PE venous Doppler positive for DVT of right leg Continue heparin drip Echo showing preserved ejection fraction Metabolic acidosis improving Bicarb drip turned off 2 vasopressors have been turned off I have requested nurse to continue levo Wean off Versed continue fentanyl Sedation vacation tomorrow check neurological status Start tube feeds tomorrow TTM was not initiated after cardiac arrest He has been afebrile Noticed myoclonus Severe metabolic acidosis related to septic shock and lactic acidemia Uremia Does not need dialysis Acidemia improved Bicarb drip turned off Recheck lactic acid Septic shock related to pneumonia Currently on broad-spectrum antibiotics Discontinue IV fluids Continue vasopressors Limited fluid restriction because of CHF Diastolic congestive heart failure I will give him a dose of Lasix toda +7 L balance Hyperglycemia: Anion gap closed Glucose within target range No signs of DKA Shock liver worsening enzymes noted Guarded prognosis He is full code Lives with his girlfriend Brother and [id number] were at the bedside today Attestations Medical Necessity Statement*: Continue ICU management Time Spent in Patient Care: 35 Coding Level of Care Code Acute Bank Sales And Service Manager for g Fwd Diagnoses Hyperglycemia R73.9 Metabolic acidosis E87.2 Hyperkalemia E87.5 Atrial fibrillation I48.91 Acute exacerbation of chronic obstructive airways disease J44.1 Pneumonia J18.9 Sepsis A41.9 Acute kidney injury superimposed on chronic kidney disease N17.9; N18.9 Congestive heart failure with preserved left ventricular function, NYHA class 1 I50.30 Thrombocytopenia D69.6
[2022-04-21 13:08] LABS: Glucose Point of Care 164 mg/dL (70-110)
[2022-04-21] MEDS: FUROsemide 10 mg/mL SDV 2mL 20 MG IVP (13:10)
[2022-04-21 13:44] LABS: Lactate (Lactic Acid level) 2.6 mmol/L (0.5-2.2)
[2022-04-21 14:06] LABS: Glucose Point of Care 158 mg/dL (70-110)
[2022-04-21 15:21] LABS: Glucose Point of Care 150 mg/dL (70-110)
--- NOTE | 2022-04-21 16:05 | PC.NUTR ---
Consult for Tube Feeding received. Recommend Glucerna 1.2 starting at 10 mls/hr, increasing 10 mls Q8H as tolerated til goal rate of 50 mls/hr is reached with flushes 120 mls Q4H. Details in RD assessment.
[2022-04-21 16:15] LABS: Glucose Point of Care 161 mg/dL (70-110)
[2022-04-21] MEDS: atorvastatin 40 mg Tablet 80 MG PO (17:35)
[2022-04-21 18:19] LABS: Glucose Point of Care 225 mg/dL (70-110)
[2022-04-21 18:19] LABS: Glucose Point of Care 184 mg/dL (70-110)
[2022-04-21 18:22] LABS: Blastocytes 1 % (0-0)
[2022-04-21 18:57] LABS: Partial Thromboplastin Time 62.6 SECONDS (23.9-36.7)
[2022-04-21 19:10] LABS: Glucose Point of Care 152 mg/dL (70-110)
[2022-04-21 20:23] LABS: Glucose Point of Care 176 mg/dL (70-110)
[2022-04-21 21:07] LABS: Glucose Point of Care 159 mg/dL (70-110)
[2022-04-21] MEDS: insulin glargine 100 units/1 mL 10 UNIT SUBCUT (21:56)
--- NOTE | 2022-04-21 23:35 | ECG_ITS ---
[facility] Test Date: 2022-04-21 Pat Name: Jeffrey Brown Department: Room: [facility] Gender: Male Director Toxicology: : 1955 Requested By: Jian Villalta Order Number: [id number] Janet MD: Eloy Otoole M.D. Measurements Intervals [place] Rate: 140 P: MA: QRS: -12 QRSD: 99 T: 75 QT: 298 QTc: 456 Interpretive Statements ATRIAL FIBRILLATION WITH RAPID VENTRICULAR RESPONSE INTERPRETATION BASED ON A DEFAULT AGE OF 40 YEARS Compared to ECG 04/20/2022 04:16:23 Wandering atrial pacemaker no longer present Atrial-paced complex(es) or rhythm no longer present Myocardial infarct finding no longer present Electronically Signed On 04-22-2022 0:28:32 CDT by Eloy Otoole M.D. [email or web address]
[2022-04-22] VITALS (70 sets, daily range): BP systolic 89–131; BP diastolic 52–88; PULSE 103–146; RESP 20–22; TEMP 37.2–37.3; O2SAT 90–99
--- NOTE | 2022-04-22 00:20 | PC.NURSE ---
Pt withdraws to pain on the right upper extremity at this time. Still no other movement in any other extremity or following of commands.
[2022-04-22 00:38] LABS: Partial Thromboplastin Time 57.9 SECONDS (23.9-36.7)
[2022-04-22] MEDS: vancomycin 750 MG in sodium chloride 0.9% 250 ML 250 MG IV (02:15)
[2022-04-22] MEDS: cefepime 1,000 MG in sodium chloride 0.9% (plus) 50 ML 100 MG IV ×2 (02:15→13:14)
[2022-04-22 03:31] LABS: ABG PCO2 35.1 mmHg (35-45); ABG PH Result 7.46 (7.35-7.45); Arterial Blood Gas Hematocrit 25.3 % (42-52); Base Excess ABG 0.9 mmol/L (-2.0-2.0); Blood Gas Allen Test Pos; Blood Gas Sample Type Arterial; Carboxyhemoglobin 1.6 %THgb (0.4-20.1); HCO3 ABG 24.7 mmol/L (22-26); HGB O2 Sat 96.4 % (95-100); Ionized Calcium Level - ABG 1.1 mmol/L (1.1-1.4); Methemoglobin 0.8 % (0.4-1.5); Oxygen Saturation ABG 98.8; Potassium Level - ABG 3.9 mmol/L (3.5-5.0); Total Hemoglobin 8.3 g/dL (14-18)
[2022-04-22 03:33] LABS: Alveolar-Arterial Oxygen Gradi 23.4 mmHg (5-10); Blood Gas Sample Site Radial, right; Blood Gas Tidal Volume 0.55; Oxygen Device VENT
[2022-04-22 03:48] LABS: Glucose Point of Care 157 mg/dL (70-110)
[2022-04-22] MEDS: piperacillin-tazobactam 3.375 GM in sodium chloride 0.9% (plus) 50 ML IV ×2 (04:35→16:44)
[2022-04-22 07:02] LABS: Basophils % 0.1 %; Hematocrit 27.5 % (42.0-52.0); Lymphocytes # 0.3 10^3/uL (0.8-4.8); Lymphocytes % 4.2 %; Mean Corpuscular HGB Conc 29.1 g/dL (30.0-36.0); Mean Corpuscular Hemoglobin 26.4 pg (28.0-34.0); Mean Corpuscular Volume 90.8 fl (80-94); Monocytes # 0.3 10^3/uL (0.2-0.9); Monocytes % 3.9 %; Neutrophils # 7.28 10^3/uL (1.8-7.7); Neutrophils % 90.8 %; Nucleated Red Blood Cells # 0.1 /100WBC; Nucleated Red Blood Cells % 1.5 %; Platelet Count 77 10^3/cmm (130-400); Red Blood Count 3.03 10^6/uL (4.1-5.3); Red Cell Distribution Width 16.8 % (12.1-15.1)
[2022-04-22 07:06] LABS: Partial Thromboplastin Time 50.2 SECONDS (23.9-36.7)
[2022-04-22 07:13] LABS: Blood Urea Nitrogen 67 mg/dL (8-23); Calcium 7.5 mg/dL (8.5-10.5); Carbon Dioxide 25 mmol/L (22-29); Chloride 102 mmol/L (98-107); Glomerular Filtration Rate 21.2 mL/min (90-130); Glucose 248 mg/dL (65-115); Osmolality Calculated 318 mOsm/kg (285-295); Sodium 140 mmol/L (136-145)
[2022-04-22] MEDS: ipratropium-albuterol 3 mL Neb INHALATION ×4 (07:37→20:03)
[2022-04-22 07:54] LABS: Glucose Point of Care 268 mg/dL (70-110)
[2022-04-22] MEDS: insulin lispro 100 unit/1 mL SUBCUT ×3 (08:01→17:50)
[2022-04-22] MEDS: pantoprazole 40 mg SDV IVP (08:02)
[2022-04-22] MEDS: heparin 5,000 unit/mL INJ 1 mL IV ×3 (08:02→20:07)
[2022-04-22 08:23] LABS: Magnesium 2.2 mg/dL (1.7-2.3)
--- NOTE | 2022-04-22 10:44 | PC.SOCIAL ---
IMM update IMM updated with family at bedside as patient is intubated. Verbalized an understanding. Copy Pg 2 provided. Initialled, dated, timed, and placed in chart.
[2022-04-22] MEDS: clopidogrel 75 mg Tablet PO (10:50)
[2022-04-22] MEDS: cholecalciferol (vitamin D3) 1,000 unit Tablet 2000 UNIT PO (10:50)
[2022-04-22] MEDS: tamsulosin 0.4 mg Capsule PO ×2 (10:50→20:17)
[2022-04-22 12:38] LABS: Glucose Point of Care 288 mg/dL (70-110)
--- NOTE | 2022-04-22 12:43 | PM.PN ---
Subjective Subjective: Is not showing any meaningful recovery after sedation vacation today Myoclonus noted Afebrile No signs of neuroleptic malignant hyperthermia Hemoglobin 8 Off vasopressors FiO2 40% PEEP 8 Acidosis improved Leukocytosis 8 -2 L fluid balance Vitals/I&O/Wt Last Vital Signs Temp 98.9 F 04/22/22 07:00 Pulse 114 H 04/22/22 10:57 Resp 20 H 04/22/22 10:57 BP 94/71 04/22/22 09:30 Pulse Ox 96 04/22/22 10:57 04/21/22 04/22/22 04/22/22 22:59 06:59 14:59 Intake Total 371.622 / 1149.121 405 / 1554.121 776.000 / 776.000 Output Total 3100 / 3100 650 / 3750 Balance -2728.378 / -1950.879 -245 / -2195.879 776.000 / 776.000 Physical Exam Narrative: Patient is fluid overloaded, all of his extremities are showing signs of fluid overload Not showing signs of neurological recovery myoclonus noted right upper and lower extremity 2+ pitting edema Assisted bilateral breath sounds Pinpoint pupils Abdomen distended, soft Dilute urine color in the bag Urinary Catheter Management: Maciel: Cath Placed During This Visit: yes Reason for Continuing Indwelling Catheter: Accurate Measurement of Urinary Output in Critically Ill Patients Urinary Catheter Date of Insertion: 04/19/22 Urinary Catheter Time of Insertion: 21:00 Data : 04/22/22 06:46 04/22/22 06:46 Micro: Microbiology 04/20/22 11:35 Gram Stain - Final Sputum - Endotracheal Tube Aspirate Sputum Culture - Preliminary A&P Assessment and plan (1) Hyperglycemia: Status: Acute (2) Metabolic acidosis: Status: Acute (3) Hyperkalemia: Status: Acute (4) Atrial fibrillation: Status: Acute (5) Acute exacerbation of chronic obstructive airways disease: Status: Acute (6) Pneumonia: Status: Acute (7) Acute and chronic respiratory failure: Status: Acute (8) Acute kidney injury superimposed on chronic kidney disease: Status: Acute (9) Congestive heart failure with preserved left ventricular function, NYHA class 1: Status: Acute (10) Atrial fibrillation with rapid ventricular response: Status: Acute (11) Thrombocytopenia: Status: Acute Plan Patient intubated and sedated Respiratory failure requiring mechanical ventilation Minimal vent settings FiO2 40% PEEP 8 Sedation vacation weaning trial on daily basis Off vasopressors Metabolic acidosis has improved 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 fib RVR Amiodarone started, Will switch to p.o. 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
[2022-04-22] MEDS: FUROsemide 10 mg/mL SDV 4mL 40 MG IVP (13:14)
[2022-04-22] MEDS: lactulose oral liq 20 gm/30 mL UDC 10 GM NG-TUBE (13:14)
[2022-04-22 13:41] LABS: Partial Thromboplastin Time 54.4 SECONDS (23.9-36.7)
[2022-04-22] MEDS: heparin drip 25,000 UNIT/500 ML PREMIX 17 UNIT IV (16:48)
[2022-04-22] MEDS: sodium chloride 0.9% (plus) 50 ML 420 ML (17:01)
[2022-04-22 17:47] LABS: Glucose Point of Care 314 mg/dL (70-110)
[2022-04-22] MEDS: digoxin 250 mcg/ml INJ 2 mL IVP (18:37)
[2022-04-22 19:28] LABS: Partial Thromboplastin Time 54.8 SECONDS (23.9-36.7)
--- NOTE | 2022-04-22 19:38 | NUR.SHIFT ---
pt is intubated and has been off sedation since 10am 04/22/2022 per shift change report. Pt will move right arm and leg to painful stimulus as well as head toward painful stimulus. This RN opened pt eyes and pt was able to track this RN finger when asked. pt would not squeeze hand or move right foot to commands. pupils are 3mm delonte. cardiac rhythm is afib RVR on amio @ 0.5. in 130 HR. this RN is able to palpate right pedial and bilateral radial pulses. edema noted in right lower leg and bilateral upper extremities. 8.0 tube, 28 at lips, positioned in right side of mouth. Lung sounds are clear on 40% fio2. active BS, right NG is place with glucerna 1.2 going at 10ml/hr, air injected in NG and auscultated air bubbles in ABD. Maciel in place with clear yellow urine.
[2022-04-22] MEDS: insulin glargine 100 units/1 mL 10 UNIT SUBCUT (20:29)
[2022-04-22 20:30] LABS: Glucose Point of Care 293 mg/dL (70-110)
[2022-04-23] VITALS (65 sets, daily range): BP systolic 106–169; BP diastolic 63–124; PULSE 116–147; RESP 20–24; TEMP 37.6–39; O2SAT 89–98
[2022-04-23] MEDS: ipratropium-albuterol 3 mL Neb INHALATION ×7 (00:44→23:09)
[2022-04-23 02:16] LABS: Glucose Point of Care 300 mg/dL (70-110)
[2022-04-23 02:40] LABS: Partial Thromboplastin Time 100.5 SECONDS (23.9-36.7)
[2022-04-23] MEDS: cefepime 1,000 MG in sodium chloride 0.9% (plus) 50 ML 100 MG IV (02:54)
[2022-04-23 03:28] LABS: ABG PCO2 35.7 mmHg (35-45); ABG PH Result 7.47 (7.35-7.45); Arterial Blood Gas Hematocrit 26.5 % (42-52); Blood Gas Allen Test Pos; Blood Gas Sample Type Arterial; Carboxyhemoglobin 1.2 %THgb (0.4-20.1); HCO3 ABG 25.7 mmol/L (22-26); HGB O2 Sat 97.6 % (95-100); Ionized Calcium Level - ABG 1.1 mmol/L (1.1-1.4); Methemoglobin 0.8 % (0.4-1.5); Oxygen Saturation ABG 99.6; Total Hemoglobin 8.6 g/dL (14-18)
[2022-04-23 03:31] LABS: Alveolar-Arterial Oxygen Gradi 16.2 mmHg (5-10); Blood Gas Sample Site Radial, right; Blood Gas Tidal Volume 0.55; Oxygen Device VENT
--- NOTE | 2022-04-23 04:00 | XRR_ITS ---
PROCEDURE INFORMATION: Exam: XR Chest Exam date and time: 04/23/2022 5:18 AM Age: 66 years old Clinical indication: Condition or disease; Lung condition and disease; Pneumonia; Lobar; Additional info: Pna TECHNIQUE: Imaging protocol: XR of the chest. Views: 1 view. COMPARISON: CR (CHEST, ) 04/20/2022 5:21 AM FINDINGS: Tubes, catheters and devices: ET tube present, tip 4.5 cm above the sheila. Apparent NG tube passes beneath the diaphragm, tip not included on image. Lungs: No definite CHF/pulmonary edema. Increasing right lower lung opacities. This may represent pneumonia and/or atelectasis. Continued left lower lung opacities, with some interval clearing of previously seen left mid lung opacities. Pleural spaces: No visible pneumothorax. Bilateral pleural effusions, larger on the right. These have increased in the interval. Heart/Mediastinum: Stable mild cardiomegaly. Bones/joints: No significant acute finding. XR/XR chest 1V portable [id number] IMPRESSION: 1. Continued bilateral lung opacities, worsening on the right. See above discussion. 2. Increasing pleural effusions. 3. Other findings discussed above.
--- NOTE | 2022-04-23 04:00 | CTR_ITS ---
PROCEDURE INFORMATION: Exam: CT Head Without Contrast Exam date and time: 04/23/2022 4:30 AM Age: 66 years old Clinical indication: Altered mental status/memory loss; Additional info: Post card arrest TECHNIQUE: Imaging protocol: Computed tomography of the head without contrast. Radiation optimization: All CT scans at this facility use at least one of these dose optimization techniques: automated exposure control; mA and/or kV adjustment per patient size (includes targeted exams where dose is matched to clinical indication); or iterative reconstruction. COMPARISON: CT head wo con* [id number] 01/30/2021 10:32 PM RADIATION DOSE METRICS: Total DLP (mGy-cm): 1655.45 FINDINGS: Tubes, catheters and devices: ET tube NG tubes are present. Brain: Large area of low attenuation involving essentially the entire right middle cerebral artery distribution. The appearance is compatible with an acute or subacute infarct. A few very small subtle areas of higher attenuation in this region, suspicious for subtle subarachnoid and/or intraparenchymal hemorrhage. Evaluation for this is limited by motion artifact. Diffuse cerebral edema involving the right cerebral hemisphere, with sulcal effacement. Mild, 2-3 mm of right to left midline shift. There is mild decreased attenuation in the periventricular white matter, likely from microvascular disease. Cerebral ventricles: Ventricle size is normal for age. Paranasal sinuses: Included paranasal sinuses are essentially clear. Mastoid air cells: No significant acute finding. Bones/joints: No definite acute skull fracture. Soft tissues: No significant acute finding. Vasculature: Vascular calcifications in the internal carotid and vertebral basilar systems. CT/CT head wo con* [id number] IMPRESSION: 1. Large acute or subacute infarct involving essentially the entire right middle cerebral artery distribution. 2. Diffuse cerebral edema involving the right cerebral hemisphere, with 2-3 mm of right to left midline shift. 3. Suspect a few subtle areas of associated hemorrhage, although evaluation for hemorrhage is limited by motion artifact. 4. Other details/findings discussed above. 5. Some limitations due to artifact from patient motion.
[2022-04-23 04:08] LABS: Albumin Level 3.2 g/dL (3.5-5.2); Alkaline Phosphatase 29 IU/L (40-130); Anion Gap 19.1 (5-19); Aspartate Amino Transferase 161 U/L (0-40); Blood Urea Nitrogen 64 mg/dL (8-23); Carbon Dioxide 24 mmol/L (22-29); Chloride 105 mmol/L (98-107); Globulin 2.1 g/dL (1.3-4.6); Glucose 294 mg/dL (65-115); Osmolality Calculated 327 mOsm/kg (285-295); Potassium 4.1 mmol/L (3.5-5.1); Sodium 144 mmol/L (136-145); Total Bilirubin 1.1 mg/dL (0.15-1.2); Total Protein 5.3 g/dL (6.6-8.7)
[2022-04-23 04:19] LABS: Alanine Aminotransferase 867 U/L (0-41)
[2022-04-23] MEDS: acetaminophen 325 mg Tablet 650 MG PO (04:55)
[2022-04-23] MEDS: piperacillin-tazobactam 3.375 GM in sodium chloride 0.9% (plus) 50 ML IV ×2 (04:55→16:58)
[2022-04-23 06:41] LABS: Glucose Point of Care 338 mg/dL (70-110)
[2022-04-23] MEDS: amiodarone 200 mg Tablet 400 MG PO ×3 (07:46→17:05)
[2022-04-23 08:03] LABS: Glucose Point of Care 296 mg/dL (70-110)
[2022-04-23] MEDS: insulin lispro 100 unit/1 mL SUBCUT ×4 (08:04→22:05)
[2022-04-23] MEDS: pantoprazole DR 40 mg Tablet PO (08:05)
[2022-04-23 08:27] LABS: Basophils % 0.2 %; Hematocrit 28.2 % (42.0-52.0); Hemoglobin 8.6 g/dL (11.7-16.6); Lymphocytes # 0.3 10^3/uL (0.8-4.8); Lymphocytes % 4.1 %; Mean Corpuscular HGB Conc 30.5 g/dL (30.0-36.0); Mean Corpuscular Hemoglobin 26.6 pg (28.0-34.0); Mean Corpuscular Volume 87.3 fl (80-94); Mean Platelet Volume 12.1 fL (7.4-10.4); Monocytes # 0.4 10^3/uL (0.2-0.9); Monocytes % 6.6 %; Neutrophils # 5.77 10^3/uL (1.8-7.7); Neutrophils % 87.9 %; Nucleated Red Blood Cells # 0.1 /100WBC; Nucleated Red Blood Cells % 2.1 %; Platelet Count 89 10^3/cmm (130-400); Red Blood Count 3.23 10^6/uL (4.1-5.3); Red Cell Distribution Width 16.9 % (12.1-15.1); White Blood Count 6.6 10^3/uL (4.0-10.0)
[2022-04-23 08:42] LABS: Partial Thromboplastin Time 43.9 SECONDS (23.9-36.7)
--- NOTE | 2022-04-23 08:42 | PC.NURSE ---
this nurse called Dr. May in regards to head ct, dr may came to bedside observed no response to stimuli, requested ct report be sent to [facility], radiology notified
[2022-04-23 08:43] LABS: Lactate (Lactic Acid level) 3.7 mmol/L (0.5-2.2)
[2022-04-23 11:18] LABS: Glucose Point of Care 287 mg/dL (70-110)
[2022-04-23] MEDS: tamsulosin 0.4 mg Capsule PO ×2 (11:21→22:06)
[2022-04-23] MEDS: cholecalciferol (vitamin D3) 1,000 unit Tablet 2000 UNIT PO (11:21)
--- NOTE | 2022-04-23 12:13 | PC.NURSE ---
this nurse notified Dr. May that patient's family is at bedside and Radiology is unable to send CT to [place] as requested
--- NOTE | 2022-04-23 12:34 | P.PN_ITS ---
Subjective Subjective: Acute CVA with cerebral edema midline shift Start mannitol we will give 0.25 g/kg I have spoken with [facility] and [facility], we have uploaded CT scan to the cloud Patient has not spiked any fever, low-grade fever noted today He is off sedation since yesterday, no meaningful neurological recovery Not following commands FiO2 40% White count 6 Platelet count 89,000 Hemoglobin 8.6 Negative fluid balance Creatinine improved to 2.6 Lactic acid 3.7 Family updated Vitals/I&O/Wt Last Vital Signs Temp 100.7 F H 04/23/22 03:15 Pulse 142 H 04/23/22 12:00 Resp 20 H 04/23/22 11:40 BP 142/84 04/23/22 12:00 Pulse Ox 96 04/23/22 12:00 04/22/22 04/23/22 04/23/22 22:59 06:59 14:59 Intake Total 428.922 / 1373.922 523.584 / 1897.506 Output Total 1800 / 1800 1300 / 3100 Balance -1371.078 / -426.078 -776.416 / -1202.494 Physical Exam Narrative: Patient is not showing any meaningful neurological signs Currently FiO2 40% Bilateral assisted breath sounds CHF exacerbation with edema of all extremities Abdomen is distended however soft He is getting antibiotics, off sedation Not able to follow commands S1, S2 A. fib with RVR Urinary Catheter Management: Maciel: Cath Placed During This Visit: yes Reason for Continuing Indwelling Catheter: Accurate Measurement of Urinary Output in Critically Ill Patients Urinary Catheter Date of Insertion: 04/19/22 Urinary Catheter Time of Insertion: 21:00 Data : 04/23/22 07:58 04/23/22 03:21 Micro: Microbiology 04/20/22 11:35 Gram Stain - Final Sputum - Endotracheal Tube Aspirate Sputum Culture - Final A&P Assessment and plan (1) Acute CVA (cerebrovascular accident): Status: Acute (2) Hyperglycemia: Status: Acute (3) Metabolic acidosis: Status: Acute (4) Hyperkalemia: Status: Acute (5) Atrial fibrillation: Status: Acute (6) Acute exacerbation of chronic obstructive airways disease: Status: Acute (7) Pneumonia: Status: Acute (8) Sepsis: Status: Acute (9) Acute and chronic respiratory failure: Status: Acute (10) Acute kidney injury superimposed on chronic kidney disease: Status: Acute (11) Congestive heart failure with preserved left ventricular function, NYHA class 1: Status: Acute (12) Thrombocytopenia: Status: Acute (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 Plan See my transfer summary Attestations Medical Necessity Statement*: transferred Coding Level of Care Code Acute [employer] 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
--- NOTE | 2022-04-23 12:51 | P.TS_ITS ---
Transfer Summary Providers Date of Admission: 04/19/22 22:07 Date of Discharge/Transfer: 04/23/22 Attending Provider at Admission: Jian Villalta MD Attending Provider at Transfer: Yessica May MD Transfer Plans: Anticipated date of transfer: 04/23/22 . Diagnoses at Discharge Discharge Diagnosis (1) Acute CVA (cerebrovascular accident): Status: Acute (2) Hyperglycemia: Status: Acute (3) Metabolic acidosis: Status: Acute (4) Hyperkalemia: Status: Acute (5) Atrial fibrillation: Status: Acute (6) Acute exacerbation of chronic obstructive airways disease: Status: Acute (7) Pneumonia: Status: Acute (8) Sepsis: Status: Acute (9) Acute and chronic respiratory failure: Status: Acute (10) Acute kidney injury superimposed on chronic kidney disease: Status: Acute (11) Congestive heart failure with preserved left ventricular function, NYHA class 1: Status: Acute (12) Thrombocytopenia: Status: Acute (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 fib RVR presented with worsening of shortness of breath. He was admitted on 04/19 by the membership coordinator with diagnosis of septic shock, pneumonia. Soon after his admission in the ICU, SHANNON VICTORIA was called, his rhythm was PEA, after 2 rounds of epi, ROSC obtained, TTM was not initiated. He was intubated during CODE BLUE. Echo showed preserved ejection fraction, his troponins even after PEA were trending down. He was started on broad- spectrum antibiotics, heparin drip, 3 vasopressors and IV fluids. Next day when I took over his care patient was extremely acidotic bicarb 14(bicarb drip initiated) he was hyperglycemic blood glucose above 500, ketones negative, insulin drip was initiated as well. He was hyperkalemic potassium 5.9 at the time when he coded(improved with use of insulin) Next day I requested venous Doppler which showed left-sided Nonocclusive DVT in the proximal and mid superficial femoral vein which appears occlusive more distally, he also has chronically occluded left superficial femoral artery stent, no findings of DVT in right lower extremity. Patient was started on heparin drip after ROSC was obtained. Between 04/19-04/22 metabolic acidosis & kidney function improved( creatinine at the time of admission 3.7 after Lasix creatinine 2.6) Mechanical ventilator settings, FiO2 40%, PEEP 8, I was able to wean him off 3 vasopressors to none on 04/22, He developed A. fib RVR for which he was started on amiodarone drip After discontinuation of vasopressors, bicarb drip and insulin, sedation vacation revealed that patient has myoclonus of right upper extremity and right leg, his previous notes did reveal that he has history of myoclonus dystrophy he was afebrile, I did not put neuroleptic malignant hyperthermia or serotonin syndrome high in my differentials, requested CT head which revealed CT/CT head wo con* [id number] IMPRESSION: 1. Large acute or subacute infarct involving essentially the entire right middle cerebral artery distribution. 2. Diffuse cerebral edema involving the right cerebral hemisphere, with 2-3 mm of right to left midline shift. 3. Suspect a few subtle areas of associated hemorrhage, although evaluation for hemorrhage is limited by motion artifact. 4. Other details/findings discussed above. 5. Some limitations due to artifact from patient motion I spoke with Dr. Cope at [facility], CT scan of head was looped over to the PACS system, he was able to review it, patient was accepted at neuro ICU under Dr. Almeida for decompressive craniotomy I have given him hypertonic saline started at 30 mL/h with target sodium level 144 -154 mEq Family wants him full code and wants everything to be done as a lifesaving measure Echo report LV systolic function is normal with EF of 55-60% ?Moderate mitral annular calcification.? Mild mitral stenosis ?with mean gradient across mitral valve of 4.1 mmHg.? There is ?mild to moderate mitral regurgitation.? ?Aortic valve is thickened and calcified.? Mild aortic stenosis ?is seen with aortic valve area of 1.73 cm squared and mean gradient ?across aortic valve of 16.4 mmHg. ? There is mild to moderate ?aortic regurgitation.? ?Mild to moderate tricuspid regurgitation.? RVSP is 60 mmHg.? ?Moderate to severe pulmonary hypertension ?Compared to prior echocardiogram from 01/2021, patient now has ?moderate to severe pulmonary hypertension. Physical Exam Narrative: Myoclonus of right upper extremity, right lower extremity Patient is intubated and not sedated, no meaningful neurological signs Respiratory 40% PEEP 8 Congestive heart failure Right leg DVT Assisted bilateral breath sounds Abdomen is distended Urinary Catheter Management: Maciel: Cath Placed During This Visit: yes Reason for Continuing Indwelling Catheter: Accurate Measurement of Urinary Output in Critically Ill Patients Urinary Catheter Date of Insertion: 04/19/22 Urinary Catheter Time of Insertion: 21:00 TS Data Studies Completed and Pending Pending at discharge Category Date Time Status BMP [Basic Metabolic Panel] Timed Lab 04/24/22 04:00 Ordered Blood Culture Stat Lab 04/19/22 18:54 Results CBC Auto Diff [Complete Blood Count w/Auto] AM LABS Lab 04/24/22 04:00 Ordered CBC Auto Diff [Complete Blood Count w/Auto] AM LABS Lab 04/25/22 04:00 Ordered CBC Auto Diff [Complete Blood Count w/Auto] AM LABS Lab 04/26/22 04:00 Ordered CMP [Comprehensive Metabolic Panel] AM LABS Lab 04/24/22 04:00 Ordered CMP [Comprehensive Metabolic Panel] AM LABS Lab 04/25/22 04:00 Ordered CMP [Comprehensive Metabolic Panel] AM LABS Lab 04/26/22 04:00 Ordered Osmolality Serum Routine Lab 04/23/22 07:58 Received Platelet Count Q2D Lab 04/24/22 04:00 Ordered Sputum Culture and Gram Stain Routine Lab 04/20/22 00:30 Uncollected Vancomycin Trough Timed Lab 04/24/22 00:00 Ordered Labs from last 24 hours 04/23/22 04/23/22 04/23/22 11:14 08:01 07:58 WBC 6.6 RBC 3.23 L Hgb 8.6 L Hct 28.2 L MCV 87.3 MCH 26.6 L MCHC 30.5 RDW 16.9 H Plt Count 89 L MPV 12.1 H Neut % (Auto) 87.9 Lymph % (Auto) 4.1 [place] % (Auto) 6.6 Eos % (Auto) 0.0 Baso % (Auto) 0.2 Neut # (Auto) 5.77 Lymph # (Auto) 0.3 L [place] # (Auto) 0.4 Eos # (Auto) 0.0 Baso # (Auto) 0.0 Nucleated RBC % (auto) 2.1 Nucleated RBCs # 0.1 APTT Specimen Type Sample Site ABG pH ABG pCO2 ABG pO2 ABG HCO3 ABG O2 Saturation ABG Base Excess Mich Test A-a O2 Gradient Hematocrit Hgb O2 Saturation Carboxyhemoglobin Methemoglobin Total Hemoglobin Sodium Potassium Glucose Ionized Calcium O2 Delivery Device FiO2 Tidal Volume PEEP Ground Source Heat Pump Technician ID Chloride Carbon Dioxide Anion Gap BUN Creatinine GFR Calculation POC Glucose 287 H 296 H Serum Osmolality Calculated Osmolality Lactate Calcium Total Bilirubin AST ALT Alkaline Phosphatase Total Protein Albumin Globulin 04/23/22 04/23/22 04/23/22 07:58 07:58 07:58 WBC RBC Hgb Hct MCV MCH MCHC RDW Plt Count MPV Neut % (Auto) Lymph % (Auto) [place] % (Auto) Eos % (Auto) Baso % (Auto) Neut # (Auto) Lymph # (Auto) [place] # (Auto) Eos # (Auto) Baso # (Auto) Nucleated RBC % (auto) Nucleated RBCs # APTT 43.9 H D Specimen Type Sample Site ABG pH ABG pCO2 ABG pO2 ABG HCO3 ABG O2 Saturation ABG Base Excess Mich Test A-a O2 Gradient Hematocrit Hgb O2 Saturation Carboxyhemoglobin Methemoglobin Total Hemoglobin Sodium Potassium Glucose Ionized Calcium O2 Delivery Device FiO2 Tidal Volume PEEP Ground Source Heat Pump Technician ID Chloride Carbon Dioxide Anion Gap BUN Creatinine GFR Calculation POC Glucose Serum Osmolality Pending Calculated Osmolality Lactate 3.7 H Calcium Total Bilirubin AST ALT Alkaline Phosphatase Total Protein Albumin Globulin 04/23/22 04/23/22 04/23/22 06:26 03:21 03:20 WBC RBC Hgb Hct MCV MCH MCHC RDW Plt Count MPV Neut % (Auto) Lymph % (Auto) [place] % (Auto) Eos % (Auto) Baso % (Auto) Neut # (Auto) Lymph # (Auto) [place] # (Auto) Eos # (Auto) Baso # (Auto) Nucleated RBC % (auto) Nucleated RBCs # APTT Specimen Type Arterial Sample Site Radial, right ABG pH 7.47 H ABG pCO2 35.7 ABG pO2 111.0 H ABG HCO3 25.7 ABG O2 Saturation 99.6 ABG Base Excess 2.0 Mich Test Pos A-a O2 Gradient 16.2 H Hematocrit 26.5 L Hgb O2 Saturation 97.6 Carboxyhemoglobin 1.2 Methemoglobin 0.8 Total Hemoglobin 8.6 L Sodium 144 144.0 H Potassium 4.1 4.0 Glucose 294 H 288.0 H Ionized Calcium 1.1 O2 Delivery Device Vent FiO2 40.0 Tidal Volume 0.55 PEEP 8.0 Ground Source Heat Pump Technician ID Hinja Chloride 105 Carbon Dioxide 24 Anion Gap 19.1 H BUN 64 H Creatinine 2.6 H GFR Calculation 25.0 L POC Glucose 338 H Serum Osmolality Calculated Osmolality 327 H Lactate Calcium 8.0 L Total Bilirubin 1.1 AST 161 H ALT 867 H Alkaline Phosphatase 29 L Total Protein 5.3 L Albumin 3.2 L Globulin 2.1 04/23/22 04/23/22 04/22/22 02:03 01:58 20:23 WBC RBC Hgb Hct MCV MCH MCHC RDW Plt Count MPV Neut % (Auto) Lymph % (Auto) [place] % (Auto) Eos % (Auto) Baso % (Auto) Neut # (Auto) Lymph # (Auto) [place] # (Auto) Eos # (Auto) Baso # (Auto) Nucleated RBC % (auto) Nucleated RBCs # APTT 100.5 H D Specimen Type Sample Site ABG pH ABG pCO2 ABG pO2 ABG HCO3 ABG O2 Saturation ABG Base Excess Mich Test A-a O2 Gradient Hematocrit Hgb O2 Saturation Carboxyhemoglobin Methemoglobin Total Hemoglobin Sodium Potassium Glucose Ionized Calcium O2 Delivery Device FiO2 Tidal Volume PEEP Ground Source Heat Pump Technician ID Chloride Carbon Dioxide Anion Gap BUN Creatinine GFR Calculation POC Glucose 300 H 293 H Serum Osmolality Calculated Osmolality Lactate Calcium Total Bilirubin AST ALT Alkaline Phosphatase Total Protein Albumin Globulin 04/22/22 04/22/22 04/22/22 18:57 17:45 13:21 WBC RBC Hgb Hct MCV MCH MCHC RDW Plt Count MPV Neut % (Auto) Lymph % (Auto) [place] % (Auto) Eos % (Auto) Baso % (Auto) Neut # (Auto) Lymph # (Auto) [place] # (Auto) Eos # (Auto) Baso # (Auto) Nucleated RBC % (auto) Nucleated RBCs # APTT 54.8 H 54.4 H Specimen Type Sample Site ABG pH ABG pCO2 ABG pO2 ABG HCO3 ABG O2 Saturation ABG Base Excess Mich Test A-a O2 Gradient Hematocrit Hgb O2 Saturation Carboxyhemoglobin Methemoglobin Total Hemoglobin Sodium Potassium Glucose Ionized Calcium O2 Delivery Device FiO2 Tidal Volume PEEP Ground Source Heat Pump Technician ID Chloride Carbon Dioxide Anion Gap BUN Creatinine GFR Calculation POC Glucose 314 H Serum Osmolality Calculated Osmolality Lactate Calcium Total Bilirubin AST ALT Alkaline Phosphatase Total Protein Albumin Globulin Completed Studies During Hospitalization Category Date Time Status CT chest abdomen pelvis [[place] [id number] Cat Scan 04/19/22 20:13 Completed ] Stat CT head wo con* [id number] Routine Cat Scan 04/23/22 04:00 Completed CXRP [XR chest 1V portable [id number]] Stat Exams 04/20/22 03:21 Completed XR chest 1V portable [id number] Routine Exams 04/20/22 05:17 Completed XR chest 1V portable [id number] Routine Exams 04/23/22 04:00 Completed XR chest 1V portable [id number] Stat Exams 04/19/22 16:53 [place] [id number] Routine Ultrasound 04/20/22 14:01 Completed CV. echo complete* [id number] Routine Ultrasound 04/20/22 08:31 Completed Laboratory Last Values WBC 6.6 10^3/uL (4.0-10.0) 04/23/22 07:58 Corrected WBC 16.9 10^3/cmm (4.8-10.8) H 04/20/22 04:16 RBC 3.23 10^6/uL (4.1-5.3) L 04/23/22 07:58 Hgb 8.6 g/dL (11.7-16.6) L 04/23/22 07:58 Hct 28.2 % (42.0-52.0) L 04/23/22 07:58 MCV 87.3 fl (80-94) 04/23/22 07:58 MCH 26.6 pg (28.0-34.0) L 04/23/22 07:58 MCHC 30.5 g/dL (30.0-36.0) 04/23/22 07:58 RDW 16.9 % (12.1-15.1) H 04/23/22 07:58 Plt Count 89 10^3/cmm (130-400) L 04/23/22 07:58 MPV 12.1 fL (7.4-10.4) H 04/23/22 07:58 Gran % Cancelled 04/20/22 02:02 Neut % (Auto) 87.9 % 04/23/22 07:58 Lymph % (Auto) 4.1 % 04/23/22 07:58 [place] % (Auto) 6.6 % 04/23/22 07:58 Eos % (Auto) 0.0 % 04/23/22 07:58 Baso % (Auto) 0.2 % 04/23/22 07:58 Neut # (Auto) 5.77 10^3/uL (1.8-7.7) 04/23/22 07:58 Lymph # (Auto) 0.3 10^3/uL (0.8-4.8) L 04/23/22 07:58 [place] # (Auto) 0.4 10^3/uL (0.2-0.9) 04/23/22 07:58 Eos # (Auto) 0.0 10^3/uL (0.0-0.8) 04/23/22 07:58 Baso # (Auto) 0.0 10^3/uL (0.0-0.1) 04/23/22 07:58 Absolute Gran (auto) Cancelled 04/20/22 02:02 Nucleated RBC % (auto) 2.1 % 04/23/22 07:58 Total Counted 100 (0-100) 04/20/22 04:16 Atypical Lymphs % 0.0 % (0-5) 04/20/22 04:16 Absolute Neutrophils 13.8 10^3/cmm (1.4-6.5) H 04/20/22 04:16 Segmented Neutrophils 70 % 04/20/22 04:16 Abs Segm Neuts (Man) 12.7 10/cmm (1.6-7.1) H 04/20/22 04:16 Band Neutrophils 6.0 % 04/20/22 04:16 Abs Band Neuts (Man) 1.1 10^3/cmm (0.0-1.2) 04/20/22 04:16 Absolute Lymphocytes 1.4 10^3/cmm (1.2-3.4) 04/20/22 04:16 Lymphocytes (Manual) 8 % 04/20/22 04:16 Monocytes (Manual) 5.0 % 04/20/22 04:16 Absolute Monocytes 0.9 10^3/cmm (0.1-0.6) H 04/20/22 04:16 Eosinophils (Manual) 0 % 04/20/22 04:16 Absolute Eosinophils 0.0 10^3/cmm (0.0-0.7) 04/20/22 04:16 Basophils (Manual) 0.0 % 04/20/22 04:16 Absolute Basophils 0.0 10^3/cmm (0.0-0.2) 04/20/22 04:16 Myelocytes 3.0 % 04/20/22 04:16 Nucleated RBCs 7.0 /100WBC (0-1) H 04/20/22 04:16 Nucleated RBCs # 0.1 /100WBC 04/23/22 07:58 Blast Cells 1 % (0-0) H 04/20/22 04:16 Platelet Estimate Decreased (Normal) 04/20/22 04:16 Giant Platelets 1+ H 04/20/22 04:16 Polychromasia 1+ H 04/20/22 04:16 Poikilocytosis 04/20/22 04:16 Anisocytosis 2+ H 04/20/22 04:16 Microcytosis Trace 04/20/22 04:16 Macrocytosis 1+ H 04/20/22 04:16 Target Cells 1+ H 04/20/22 04:16 Tear Drop Cells Card Table Attendant 04/20/22 04:16 Ovalocytes 3+ H 04/20/22 04:16 Sheila Cells 2+ H 04/20/22 04:16 Acanthocytes (Spur) 1+ H 04/20/22 04:16 APTT 43.9 SECONDS (23.9-36.7) H D 04/23/22 07:58 D-Dimer 2.48 ug/mIFEU (0-0.59) H 04/20/22 12:20 Specimen Type Arterial 04/23/22 03:20 Sample Site Radial, right 04/23/22 03:20 ABG pH 7.47 (7.35-7.45) H 04/23/22 03:20 ABG pCO2 35.7 mmHg (35-45) 04/23/22 03:20 ABG pO2 111.0 mmHg (80.0-100.0) H 04/23/22 03:20 ABG HCO3 25.7 mmol/L (22-26) 04/23/22 03:20 ABG O2 Saturation 99.6 04/23/22 03:20 ABG Base Excess 2.0 mmol/L (-2.0-2.0) 04/23/22 03:20 Mich Test Pos 04/23/22 03:20 A-a O2 Gradient 16.2 mmHg (5-10) H 04/23/22 03:20 Hematocrit 26.5 % (42-52) L 04/23/22 03:20 Hgb O2 Saturation 97.6 % (95-100) 04/23/22 03:20 Carboxyhemoglobin 1.2 %THgb (0.4-20.1) 04/23/22 03:20 Methemoglobin 0.8 % (0.4-1.5) 04/23/22 03:20 Total Hemoglobin 8.6 g/dL (14-18) L 04/23/22 03:20 Sodium 144.0 mmol/L (131-143) H 04/23/22 03:20 Potassium 4.0 mmol/L (3.5-5.0) 04/23/22 03:20 Glucose 288.0 mg/dL (70-115) H 04/23/22 03:20 Ionized Calcium 1.1 mmol/L (1.1-1.4) 04/23/22 03:20 Respiration Rate 20.0 % 04/20/22 15:36 O2 Delivery Device Vent 04/23/22 03:20 O2 Liters/Min 5.0 % 04/19/22 17:21 Vent Mode Simv 04/20/22 15:36 FiO2 40.0 % 04/23/22 03:20 Tidal Volume 0.55 04/23/22 03:20 PEEP 8.0 cmH20 04/23/22 03:20 CPAP 8.0 cmH20 04/20/22 08:39 Specimen Drawn By Mu 04/20/22 15:36 Ground Source Heat Pump Technician ID Hinja 04/23/22 03:20 Sodium 144 mmol/L (136-145) 04/23/22 03:21 Potassium 4.1 mmol/L (3.5-5.1) 04/23/22 03:21 Chloride 105 mmol/L (98-107) 04/23/22 03:21 Carbon Dioxide 24 mmol/L (22-29) 04/23/22 03:21 Anion Gap 19.1 (5-19) H 04/23/22 03:21 BUN 64 mg/dL (8-23) H 04/23/22 03:21 Creatinine 2.6 mg/dL (0.7-1.2) H 04/23/22 03:21 GFR Calculation 25.0 mL/min (90-130) L 04/23/22 03:21 Glucose 294 mg/dL (65-115) H 04/23/22 03:21 POC Glucose 287 mg/dL (70-110) H 04/23/22 11:14 Calculated Osmolality 327 mOsm/kg (285-295) H 04/23/22 03:21 Lactic Acid 8.9 mmol/L (0.5-2.2) H* 04/20/22 04:16 Lactic Acid (Sepsis) 9.1 mmol/L (0.5-2.2) H* 04/20/22 08:37 Lactate 3.7 mmol/L (0.5-2.2) H 04/23/22 07:58 Calcium 8.0 mg/dL (8.5-10.5) L 04/23/22 03:21 Magnesium 2.2 mg/dL (1.7-2.3) 04/22/22 06:46 Total Bilirubin 1.1 mg/dL (0.15-1.2) 04/23/22 03:21 AST 161 U/L (0-40) H 04/23/22 03:21 ALT 867 U/L (0-41) H 04/23/22 03:21 Alkaline Phosphatase 29 IU/L (40-130) L 04/23/22 03:21 Troponin T Baseline 52 ng/L (0-15) H 04/19/22 18:52 Troponin T 120 Minute 49.78 ng/L (0-15) H 04/19/22 21:40 Delta Troponin T -2.22 ABS# (0-10) L 04/19/22 21:40 Troponin T Hi Sens 6Hr 46.94 ng/L (0-15) H 04/20/22 04:16 Troponin T Hi Sens 6Hr Delta -5.06 ng/L (0-12) L 04/20/22 04:16 NT-Pro-B Natriuret Pep 55417 pg/mL (0-125) H 04/20/22 04:16 Total Protein 5.3 g/dL (6.6-8.7) L 04/23/22 03:21 Albumin 3.2 g/dL (3.5-5.2) L 04/23/22 03:21 Globulin 2.1 g/dL (1.3-4.6) 04/23/22 03:21 Procalcitonin 0.12 ng/mL (0-0.5) 04/20/22 04:16 Urine Color Yellow (Yellow) 04/19/22 21:30 Urine Appearance Clear (CLEAR) 04/19/22 21:30 Urine pH 5 (5-7) 04/19/22 21:30 Ur Specific [place] 1.025 (1.005-1.030) 04/19/22 21:30 Urine Protein 1+ (Negative) H 04/19/22 21:30 Urine Glucose (UA) Norm (Normal) 04/19/22 21:30 Urine Ketones Negative (Negative) 04/19/22 21:30 Urine Blood Neg (Negative) 04/19/22 21:30 Urine Nitrate Negative (Negative) 04/19/22 21:30 Urine Bilirubin Neg (Negative) 04/19/22 21:30 Urine Urobilinogen 1 mg/dL (Negative) H 04/19/22 21:30 Ur Leukocyte Esterase Negative (Negative) 04/19/22 21:30 Urine RBC 0-4 /hpf (0-2) H 04/19/22 21:30 Urine WBC 0-4 /hpf (0-5) H 04/19/22 21:30 Ur Squamous Epith Cells 0-4 /hpf (0-5) H 04/19/22 21:30 Amorphous Sediment 1+ /hpf 04/19/22 21:30 Urine Bacteria Trace /hpf (NONE) 04/19/22 21:30 Serum Ketones Negative (Negative) 04/20/22 12:20 Radiology Impressions Chest/Abdomen/Pelvis CT 04/19/22 20:13 IMPRESSION: 1. Patchy right middle lobe pneumonia. 2. Question of mild interstitial edema. 3. Mild cardiomegaly 4. Coronary disease 5. Bilateral pleural effusions. IMPRESSION: 1. Cholelithiasis 2. Moderate gallbladder wall thickening of uncertain significance cholecystitis not excluded. 3. 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 5. Mild abdominal aortic aneurysm. 6. Bilateral inguinal hernias containing fat Venous Duplex 04/20/22 14:01 IMPRESSION: 1. Nonocclusive DVT in the proximal and mid superficial femoral vein which appears occlusive more distally. 2. No findings of DVT in the right lower extremity. 3. Occluded left superficial femoral artery stent. ADDENDUM: 04/20/221741 Please note, the nonocclusive and occlusive DVT in impression #1 is located on the left. ADDENDUM: 04/20/221746 Findings were discussed with SUSIE Olea at 04/20/2022 5:45 PM CDT. Chest X-Ray 04/23/22 04:00 IMPRESSION: 1. Continued bilateral lung opacities, worsening on the right. See above discussion. 2. Increasing pleural effusions. 3. Other findings discussed above. Head CT 04/23/22 04:00 IMPRESSION: 1. Large acute or subacute infarct involving essentially the entire right middle cerebral artery distribution. 2. Diffuse cerebral edema involving the right cerebral hemisphere, with 2-3 mm of right to left midline shift. 3. Suspect a few subtle areas of associated hemorrhage, although evaluation for hemorrhage is limited by motion artifact. 4. Other details/findings discussed above. 5. Some limitations due to artifact from patient motion. ADDENDUM: 04/23/22 [id number] This report contains findings that may be critical to patient care. I discussed the critical exam findings by phone with Dr. Villalta, at 5:05 AM CDT, 04/23/2022. The findings were acknowledged and understood. Recent Clincial Data Last Vital Signs Temp 100.7 F H 04/23/22 03:15 Pulse 142 H 04/23/22 12:00 Resp 20 H 04/23/22 11:40 BP 142/84 04/23/22 12:00 Pulse Ox 96 04/23/22 12:00 Vital Signs Temp Pulse Resp BP Pulse Ox 04/23/22 12:00 142 H 142/84 96 04/23/22 11:40 132 H 20 H 96 04/23/22 11:38 21 H 96 04/23/22 11:30 126 H 132/82 96 04/23/22 11:00 132 H 138/80 89 L 04/23/22 10:30 146 H 140/84 94 04/23/22 10:00 129 H 126/75 96 04/23/22 09:30 134 H 126/75 95 04/23/22 09:00 138 H 126/75 95 04/23/22 08:30 140 H 126/75 96 04/23/22 08:00 130 H 126/75 95 04/23/22 07:49 20 H 94 04/23/22 07:46 130 H 20 H 94 04/23/22 07:30 121 H 126/75 94 04/23/22 07:00 134 H 126/75 95 04/23/22 06:00 24 H 96 04/23/22 05:28 125 H 04/23/22 05:00 145 H 126/75 94 04/23/22 04:45 136 H 126/75 95 04/23/22 04:30 126/75 04/23/22 04:15 126/75 04/23/22 04:00 133 H 131/63 96 04/23/22 03:45 121 H 118/69 96 04/23/22 03:30 130 H 124/67 95 04/23/22 03:15 100.7 F H 119 H 106/71 95 04/23/22 03:10 121 H 21 H 95 04/23/22 03:00 128 H 20 H 137/71 95 04/23/22 02:45 119 H 126/66 96 04/23/22 02:30 124 H 126/79 96 04/23/22 02:15 131 H 136/81 96 04/23/22 02:00 133 H 132/63 95 04/23/22 01:45 118 H 120/89 96 04/23/22 01:30 125 H 120/89 95 04/23/22 01:15 123 H 124/82 95 04/23/22 01:00 116 H 114/68 96 Intake & Output/Weight 04/21/22 04/22/22 04/23/22 04/24/22 06:59 06:59 06:59 06:59 Intake Total 7947.136 / 7947.136 1554.121 / 8827.821 9537.506 / 1897.506 Output Total 3350 / 3350 3750 / 3750 3100 / 3100 Balance 4597.136 / 4597.136 -2195.879 / -2195.879 -1202.494 / -1202.494 Vitals Last Vital Signs Temp 100.7 F H 04/23/22 03:15 Pulse 142 H 04/23/22 12:00 Resp 20 H 04/23/22 11:40 BP 142/84 04/23/22 12:00 Pulse Ox 96 04/23/22 12:00 TS Medications Medications Acetaminophen (Acetaminophen 325 Mg Tablet) 650 mg PO Q6H PRN PRN Reason: Mild/Mod Pain Or Temp >/= 101 Last Admin: 04/23/22 04:55 Dose: 650 mg Documented by: Albuterol/Ipratropium (Ipratropium-Albuterol 3 Ml Neb) 3 ml INHALATION Q4H.RESPIRATORY [facility] Last Admin: 04/23/22 11:37 Dose: 3 ml Documented by: Amiodarone HCl (Amiodarone 200 Mg Tablet) 400 mg PO BID [facility] Last Admin: 04/23/22 08:05 Dose: 400 mg Documented by: Atorvastatin Calcium (Atorvastatin 40 Mg Tablet) 80 mg PO QPM [facility] Last Admin: 04/21/22 17:35 Dose: 80 mg Documented by: Bisacodyl (Bisacodyl 5 Mg Tablet) 10 mg PO DAILY PRN; Protocol PRN Reason: Constipation (see protocol) Clopidogrel Bisulfate (Clopidogrel 75 Mg Tablet) 75 mg PO DAILY@1100 [facility] Last Admin: 04/22/22 10:50 Dose: 75 mg Documented by: Dextrose (Dextrose 50% Syringe 50 Ml) 25 ml IVP ONCE PRN; Protocol PRN Reason: hypoglycemia protocol Dextrose (Dextrose 50% Syringe 50 Ml) 50 ml IVP PRN PRN; Protocol PRN Reason: hypoglycemia protocol Dextrose (Dextrose 50% Syringe 50 Ml) 25 ml IVP ONCE PRN; Protocol PRN Reason: hypoglycemia protocol Dextrose (Dextrose 50% Syringe 50 Ml) 50 ml IVP PRN PRN; Protocol PRN Reason: hypoglycemia protocol Dextrose (Dextrose 50% Syringe 50 Ml) 25 ml IVP ONCE PRN; Protocol PRN Reason: hypoglycemia protocol Dextrose (Dextrose 50% Syringe 50 Ml) 50 ml IVP PRN PRN; Protocol PRN Reason: hypoglycemia protocol Dextrose (Dextrose 50% Syringe 50 Ml) 25 ml IVP ONCE PRN; Protocol PRN Reason: hypoglycemia protocol Dextrose (Dextrose 50% Syringe 50 Ml) 50 ml IVP PRN PRN; Protocol PRN Reason: hypoglycemia protocol Furosemide (Furosemide 10 Mg/Ml Sdv 4ml) 40 mg IVP Q24H [facility] Last Admin: 04/22/22 13:14 Dose: 40 mg Documented by: Glucagon (Glucagon 1 Mg/Ml Inj 1 Ml) 1 mg IM ONCE PRN; Protocol PRN Reason: Adult Acute Hypoglycemia Prot. Glucagon (Glucagon 1 Mg/Ml Inj 1 Ml) 1 mg IM ONCE PRN; Protocol PRN Reason: Adult Acute Hypoglycemia Prot Glucagon (Glucagon 1 Mg/Ml Inj 1 Ml) 1 mg IM ONCE PRN; Protocol PRN Reason: Adult Acute Hypoglycemia Prot. Glucagon (Glucagon 1 Mg/Ml Inj 1 Ml) 1 mg IM ONCE PRN; Protocol PRN Reason: Adult Acute Hypoglycemia Prot. Heparin Sodium (Porcine) (Heparin 5,000 Unit/Ml Inj 1 Ml) 0 unit IV PRN PRN; Protocol PRN Reason: Heparin weight-base protocol Last Admin: 04/22/22 20:07 Dose: 2,200 unit Documented by: Dextrose ([email or web address]) 500 mls @ 100 mls/hr IV ONCE PRN; Protocol PRN Reason: Adult Acute Hypoglycemia Prot Vasopressin 100 unit/ Sodium (Chloride) 100 mls @ 0 mls/hr IV .Q0M JADEN; Protocol Last Titration: 04/20/22 16:10 Dose: 0 unit/min, 0 mls/hr Documented by: Fentanyl 1,000 mcg/ Sodium (Chloride) 100 mls @ 0 mls/hr IV .Q0M JADEN; Protocol Last Titration: 04/21/22 18:15 Dose: Infused Documented by: Piperacillin Sod/Tazobactam (Sod 3.375 gm/ Sodium Chloride) 50 mls @ 12.5 mls/hr IV Q12H JADEN; Protocol Last Admin: 04/23/22 04:55 Dose: 12.5 mls/hr Documented by: Heparin Sodium/Sodium Chloride (Heparin Drip) 25,000 unit in 500 mls @ 0 mls/hr IV .Q0M JADEN; Protocol Last Titration: 04/23/22 05:11 Dose: 0 unit/kg/hr, 0 mls/hr Documented by: Epinephrine HCl 2.5 mg/ Sodium (Chloride) 252.5 mls @ 0 mls/hr IV .Q0M JADEN; Protocol Last Titration: 04/21/22 08:51 Dose: 0 mcg/kg/min, 0 mls/hr Documented by: Dextrose (D5w) 500 mls @ 100 mls/hr IV ONCE PRN; Protocol PRN Reason: Adult Acute Hypoglycemia Prot Norepinephrine Bitartrate 4 mg (/ Dextrose) 254 mls @ 0 mls/hr IV .Q0M JADEN; Protocol Last Titration: 04/21/22 18:00 Dose: 3 mcg/min, 11.43 mls/hr Documented by: Fentanyl 2,500 mcg/ Sodium (Chloride) 250 mls @ 0 mls/hr IV .Q0M JADEN; Protocol Last Titration: 04/22/22 09:43 Dose: 0 mcg/hr, 0 mls/hr Documented by: Dextrose (D5w) 500 mls @ 100 mls/hr IV ONCE PRN; Protocol PRN Reason: Adult Acute Hypoglycemia Prot Amiodarone HCl 900 mg/Dextrose/ IV Miscellaneous Supplies 518 mls @ 0 mls/hr IV .Q0M JADEN; Protocol Last Admin: 04/22/22 22:48 Dose: 0.5 mg/min, 17.27 mls/hr Documented by: Levetiracetam 500 mg/ Sodium (Chloride) 105 mls @ 420 mls/hr IV Q12H [facility] Last Infusion: 04/23/22 03:42 Dose: Infused Documented by: Dextrose (D5w) 500 mls @ 100 mls/hr IV ONCE PRN; Protocol PRN Reason: Adult Acute Hypoglycemia Prot Cefepime HCl 1,000 mg/ Sodium (Chloride) 50 mls @ 100 mls/hr IV Q24H JADEN; Protocol Sodium Chloride (Sodium Chloride 3%) 500 mls @ 30 mls/hr IV .[id number] JADEN Insulin Glargine (Insulin Glargine 100 Units/1 Ml) 10 unit SUBCUT BEDTIME [facility] Last Admin: 04/22/22 20:29 Dose: 10 unit Documented by: Insulin Human Lispro (Insulin Lispro 100 Unit/1 Ml) 0 unit SUBCUT WM&BEDTIME [facility]; Protocol Last Admin: 04/23/22 11:21 Dose: 8 unit Documented by: Ondansetron HCl (Ondansetron 2 Mg/Ml Sdv 2 Ml) 4 mg IVP Q8H PRN PRN Reason: vomiting, or N/V if npo Pantoprazole Sodium (Pantoprazole Dr 40 Mg Tablet) 40 mg PO DAILY [facility] Last Admin: 04/23/22 08:05 Dose: 40 mg Documented by: Tamsulosin HCl (Tamsulosin 0.4 Mg Capsule) 0.4 mg PO BID@1100,2000 [facility] Last Admin: 04/23/22 11:21 Dose: 0.4 mg Documented by: Vitamin D (Cholecalciferol (Vitamin D3) 1,000 Unit Tablet) 2,000 unit PO DAILY@1100 [facility] Last Admin: 04/23/22 11:21 Dose: 2,000 unit Documented by: Discontinued Medications Albuterol/Ipratropium (Ipratropium-Albuterol 3 Ml Neb) 3 ml INHALATION ONCE ONE Stop: 04/19/22 16:53 Last Admin: 04/19/22 17:39 Dose: 3 ml Documented by: Albuterol/Ipratropium (Ipratropium-Albuterol 3 Ml Neb) 3 ml INHALATION Q4H [facility] Last Admin: 04/20/22 15:37 Dose: 3 ml Documented by: Albuterol/Ipratropium (Ipratropium-Albuterol 3 Ml Neb) 3 ml INHALATION Q4H [facility] Last Admin: 04/21/22 23:46 Dose: Not Given Documented by: Amiodarone HCl (Amiodarone 200 Mg Tablet) 200 mg PO DAILY [facility] Apixaban (Apixaban 5 Mg Tablet) 5 mg PO BID@0900,2100 [facility] Dextrose (Dextrose 50% Syringe 50 Ml) 50 ml IVP ONCE ONE Stop: 04/20/22 05:24 Last Admin: 04/20/22 06:47 Dose: 50 ml Documented by: Digoxin (Digoxin 250 Mcg/Ml Inj 2 Ml) 250 mcg IVP NOW ONE Stop: 04/22/22 17:54 Last Admin: 04/22/22 18:37 Dose: 250 mcg Documented by: Diltiazem HCl (Diltiazem Er (24hr) 120 Mg Capsule) 360 mg PO DAILY [facility] Escitalopram Oxalate (Escitalopram 10 Mg Tablet) 5 mg PO DAILY [facility] Etomidate (Etomidate 2 Mg/Ml Inj) 40 mg .ROUTE .STK-MED ONE Stop: 04/20/22 07:03 Furosemide (Furosemide 10 Mg/Ml Sdv 10ml) 60 mg IVP ONCE ONE Stop: 04/19/22 18:05 Last Admin: 04/19/22 19:28 Dose: 60 mg Documented by: Furosemide (Furosemide 10 Mg/Ml Sdv 2ml) 20 mg IVP ONCE ONE Stop: 04/21/22 12:52 Last Admin: 04/21/22 13:10 Dose: 20 mg Documented by: Heparin Sodium (Porcine) (Heparin 5,000 Unit/Ml Inj 1 Ml) 5,000 unit SUBCUT Q12H [facility] Last Admin: 04/19/22 23:40 Dose: Not Given Documented by: Hydrocortisone Sodium Succinate (Hydrocortisone 100 Mg/2 Ml Sdv) 100 mg IVP ONCE ONE Stop: 04/20/22 05:06 Last Admin: 04/20/22 06:36 Dose: 100 mg Documented by: Hydrocortisone Sodium Succinate (Hydrocortisone 100 Mg/2 Ml Sdv) 50 mg IVP Q6H JADEN Last Admin: 04/20/22 08:19 Dose: 50 mg Documented by: Levofloxacin/Dextrose (Levaquin-D5w) 750 mg in 150 mls @ 100 mls/hr IV ONCE ONE; Protocol Stop: 04/19/22 19:33 Last Infusion: 04/19/22 22:17 Dose: Infused Documented by: Vancomycin/PEG/NADA/Lysine/Water (Vancocin) 1,500 mg in 300 mls @ 200 mls/hr IV ONCE ONE; Protocol Stop: 04/19/22 21:23 Last Infusion: 04/20/22 00:55 Dose: Infused Documented by: Sodium Chloride (Sodium Chloride 0.9%) 500 mls @ 999 mls/hr IV .Q31M ONE Stop: 04/19/22 20:39 Last Infusion: 04/19/22 22:17 Dose: Infused Documented by: Sodium Chloride (Sodium Chloride 0.9%) 1,000 mls @ 75 mls/hr IV .[id number] [facility] Last Infusion: 04/20/22 10:14 Dose: Infused Documented by: dexmedeTOMIDine 0.9 % NaCL (Precedex) 400 mcg in 100 mls @ 0 mls/hr IV .Q0M JADEN; Protocol Last Titration: 04/20/22 02:36 Dose: 0 mcg/kg/hr, 0 mls/hr Documented by: Ceftriaxone Sodium 1,000 mg/ (Sodium Chloride) 50 mls @ 100 mls/hr IV Q24H JADEN; Protocol Last Infusion: 04/20/22 01:19 Dose: Infused Documented by: Azithromycin 500 mg/ Sodium (Chloride) 250 mls @ 250 mls/hr IV Q24H JADEN; Protocol Last Infusion: 04/20/22 02:37 Dose: Infused Documented by: Vancomycin HCl 750 mg/ Sodium (Chloride) 250 mls @ 250 mls/hr IV Q24H JADEN; Protocol Last Infusion: 04/22/22 04:12 Dose: Infused Documented by: Norepinephrine Bitartrate 4 mg (/ Dextrose) 254 mls @ 0 mls/hr IV .Q0M JADEN; Protocol Midazolam HCl 100 mg/ Sodium (Chloride) 100 mls @ 0 mls/hr IV .Q0M JADEN; Protocol Last Admin: 04/21/22 13:55 Dose: 4 mg/hr, 4 mls/hr Documented by: Phenylephrine HCl 25 mg/ (Sodium Chloride) 252.5 mls @ 0 mls/hr IV .Q0M JADEN; Protocol Last Titration: 04/20/22 09:05 Dose: Infused Documented by: Norepinephrine Bitartrate 8 mg (/ Dextrose) 508 mls @ 0 mls/hr IV .Q0M JADEN; Protocol Last Titration: 04/20/22 12:49 Dose: Infused Documented by: Levetiracetam 500 mg/ Sodium (Chloride) 105 mls @ 420 mls/hr IV Q12H JADEN Last Infusion: 04/22/22 05:21 Dose: Infused Documented by: Sodium Bicarbonate 150 meq/ (Dextrose) 1,150 mls @ 75 mls/hr IV .[id number] JADEN Last Infusion: 04/21/22 02:28 Dose: Infused Documented by: Insulin Human Regular 250 unit (/ Sodium Chloride) 252.5 mls @ 0 mls/hr IV .Q0M JADEN; Protocol Last Titration: 04/21/22 15:04 Dose: 4.5 mls/hr, 4.5 mls/hr Documented by: calcium gluconate 0.9% NaCL (Calcium Gluconate 0.9% Nacl) 1 gm in 50 mls @ 50 mls/hr IV ONCE ONE Stop: 04/20/22 09:31 Last Infusion: 04/20/22 10:49 Dose: Infused Documented by: Norepinephrine Bitartrate 8 mg (/ Sodium Chloride) 508 mls @ 0 mls/hr IV .Q0M JADEN; Protocol Last Titration: 04/21/22 15:05 Dose: Infused Documented by: calcium gluconate 0.9% NaCL (Calcium Gluconate 0.9% Nacl) 1 gm in 50 mls @ 50 mls/hr IV ONCE ONE Stop: 04/21/22 04:59 Last Infusion: 04/21/22 05:21 Dose: Infused Documented by: Cefepime HCl 1,000 mg/ Sodium (Chloride) 50 mls @ 100 mls/hr IV Q12H JADEN; Protocol Last Infusion: 04/23/22 03:25 Dose: Infused Documented by: Sodium Chloride (Sodium Chloride 0.9%) 1,000 mls @ 125 mls/hr IV .Q8H ONE Stop: 04/21/22 00:05 Last Admin: 04/20/22 16:34 Dose: Not Given Documented by: Sodium Chloride (Sodium Chloride 0.9%) 1,000 mls @ 75 mls/hr IV .[id number] JADEN Last Admin: 04/21/22 08:02 Dose: 75 mls/hr Documented by: Sodium Chloride (Sodium Chloride 0.9% (Plus)) Confirm Administered Dose 50 mls @ as directed .ROUTE .STK-MED ONE Stop: 04/22/22 16:41 Last Infusion: 04/22/22 17:15 Dose: Infused Documented by: Mannitol (Mannitol) 125 mls @ 250 mls/hr IV ONCE ONE Stop: 04/23/22 06:59 Last Admin: 04/23/22 06:37 Dose: 250 mls/hr Documented by: Insulin Human Lispro (Insulin Lispro 100 Unit/1 Ml) 0 unit SUBCUT WM&BEDTIME JADEN; Protocol Last Admin: 04/22/22 13:15 Dose: 8 unit Documented by: Insulin Human Lispro (Insulin Lispro 100 Unit/1 Ml) 20 unit SUBCUT NOW ONE Stop: 04/20/22 09:22 Last Admin: 04/20/22 09:29 Dose: 20 unit Documented by: Insulin Human Lispro (Insulin Lispro 100 Unit/1 Ml) 0 unit SUBCUT WM&BEDTIME JADEN; Protocol Last Admin: 04/22/22 17:02 Dose: Not Given Documented by: Insulin Human Lispro (Insulin Lispro 100 Unit/1 Ml) 0 unit SUBCUT TIDWM JADEN; Protocol Last Admin: 04/22/22 17:50 Dose: 10 unit Documented by: Insulin Human Regular (Insulin Regular-Human 100 Units/1 Ml) 10 unit IVP ONCE ONE Stop: 04/20/22 05:24 Last Admin: 04/20/22 06:53 Dose: 10 unit Documented by: Isosorbide Mononitrate (Isosorbide Mononitrate Er 30 Mg Tablet) 15 mg PO DAILY JADEN Lactulose (Lactulose Oral Liq 20 Gm/30 Ml Udc) 10 gm NG-TUBE ONCE ONE Stop: 04/22/22 13:03 Last Admin: 04/22/22 13:14 Dose: 10 gm Documented by: Levetiracetam (Levetiracetam 500 Mg Tablet) 500 mg PO BID JADEN Lorazepam (Lorazepam 2 Mg/Ml Inj 1 Ml) 2 mg IVP NOW ONE Stop: 04/19/22 22:18 Last Admin: 04/19/22 22:23 Dose: 2 mg Documented by: Lorazepam (Lorazepam 2 Mg/Ml Inj 1 Ml) 2 mg IVP Q6H PRN PRN Reason: AGITATION Methylprednisolone Sodium Succinate (Methylprednisolone Sod Succ 125 Mg/2 Ml Inj) 125 mg IVP ONCE ONE Stop: 04/19/22 16:53 Last Admin: 04/19/22 18:59 Dose: 125 mg Documented by: Methylprednisolone Sodium Succinate (Methylprednisolone Sod Succ 125 Mg/2 Ml Inj) 60 mg IVP BID [facility] Methylprednisolone Sodium Succinate (Methylprednisolone Sod Succ 125 Mg/2 Ml Inj) 60 mg IVP Q8H JADEN Last Admin: 04/22/22 08:01 Dose: 60 mg Documented by: Metoprolol Tartrate (Metoprolol Tartrate 25 Mg Tablet) 25 mg PO BID JADEN Ondansetron HCl (Ondansetron 2 Mg/Ml Sdv 2 Ml) 4 mg IVP ONCE ONE Stop: 04/19/22 16:53 Last Admin: 04/19/22 18:59 Dose: 4 mg Documented by: Pantoprazole Sodium (Pantoprazole Dr 40 Mg Tablet) 40 mg PO DAILY@11 JADEN Pantoprazole Sodium (Pantoprazole 40 Mg Sdv) 40 mg IVP DAILY [facility] Last Admin: 04/22/22 08:02 Dose: 40 mg Documented by: Succinylcholine Chloride (Succinylcholine 20 Mg/Ml Sdv 10ml) 200 mg .ROUTE .STK-MED ONE Stop: 04/20/22 07:03 Allergies No Known Allergies Allergy (Verified 04/03/22 14:24) Home Medications atorvastatin 80 mg tablet 80 mg PO QPM 12/28/19 [History Confirmed 04/19/22] cholecalciferol (vitamin D3) 50 mcg (2,000 unit) tablet 2,000 unit PO DAILY@1100 12/28/19 [History Confirmed 04/19/22] ferrous sulfate 325 mg (65 mg iron) tablet 325 mg PO DAILY@1100 12/28/19 [History Confirmed 04/19/22] sennosides 8.6 mg capsule (senna) 8.6 mg PO DAILY PRN 12/30/19 [History Confirmed 04/19/22] levetiracetam 500 mg tablet (Keppra) 500 mg PO BID #60 tab 01/03/20 [Rx Confirmed 04/19/22] pentoxifylline 400 mg tablet,extended release 400 mg PO BID 03/17/20 [History Confirmed 04/19/22] tiotropium 2.5 mcg-olodaterol 2.5 mcg/actuation mist for inhalation (Stiolto Respimat) 2 puff INHALATION DAILY #4 g 11/25/20 [Rx Confirmed 04/19/22] albuterol sulfate 90 mcg/actuation aerosol inhaler 2 puff INHALATION Q4H PRN 01/31/21 [History Confirmed 04/19/22] clopidogrel 75 mg tablet (Plavix) 75 mg PO DAILY@1100 01/31/21 [History Confi rmed 04/19/22] insulin aspart U-100 100 unit/mL (3 mL) subcutaneous pen (Novolog Flexpen U-100 Insulin aspart) 17 unit SUBCUT BEDTIME PRN 01/31/21 [History Confirmed 04/19/22] fluticasone propionate 50 mcg/actuation nasal spray,suspension 2 spray INTRANASAL DAILY PRN 03/23/21 [History Confirmed 04/19/22] tamsulosin 0.4 mg capsule 0.4 mg PO BID@1100,2000 03/23/21 [History Confirmed 04/19/22] escitalopram oxalate 10 mg tablet 5 mg PO DAILY #30 tab 04/18/21 [Rx Confirmed 04/19/22] apixaban 5 mg tablet (Eliquis) 5 mg PO BID@0900,2100 #180 tab 02/20/22 [Rx Confirmed 04/19/22] ipratropium 20 mcg-albuterol 100 mcg/actuation mist for inhalation 1 puff INHALATION QID PRN 03/06/22 [History Confirmed 04/19/22] multivitamin with iron-mineral 1 tab PO DAILY 03/06/22 [History Confirmed 04/19/22] omeprazole 40 mg capsule,delayed release 40 mg PO DAILY@11 03/06/22 [History Confirmed 04/19/22] amiodarone 200 mg tablet 200 mg PO DAILY #30 tab 03/21/22 [Rx Confirmed 04/19/22] alprazolam 0.5 mg tablet 0.5 mg PO Q8H PRN #15 tab 04/15/22 [Rx Confirmed 04/19/22] diltiazem HCl 360 mg capsule,extended release 24 hr (Cardizem CD) 360 mg PO DAILY #30 cap 04/15/22 [Rx Confirmed 04/19/22] doxycycline monohydrate 100 mg tablet 100 mg PO BID #10 tab 04/15/22 [Rx Confirmed 04/19/22] furosemide 40 mg tablet 40 mg PO BID@,16 #60 tab 04/15/22 [Rx Confirmed 04/19/22] isosorbide mononitrate 30 mg tablet,extended release 24 hr 15 mg PO DAILY #30 tab 04/15/22 [Rx Confirmed 04/19/22] metoprolol tartrate 25 mg tablet 25 mg PO BID #60 tab 04/15/22 [Rx Confirmed 04/19/22] prednisone 20 mg tablet 40 mg PO DAILY #14 tab 04/15/22 [Rx Confirmed 04/19/22] Discharge Plan Discharge Patient Disposition: Home Condition: Stable Prescriptions: No Action Stiolto Respimat 2.5-2.5 mcg/actuation mist 2 puff inhalation DAILY Qty: 4 3RF escitalopram oxalate 10 mg Tablet 5 mg PO DAILY Qty: 30 0RF atorvastatin 80 mg Tablet 80 mg PO QPM 0RF ferrous sulfate 325 mg (65 mg iron) Tablet 325 mg PO DAILY@1100 0RF cholecalciferol (vitamin D3) 2,000 unit Tablet 2,000 unit PO DAILY@1100 0RF pentoxifylline 400 mg tablet extended release 400 mg PO BID 0RF senna 8.6 mg Capsule 8.6 mg PO DAILY PRN (Reason: Constipation) 0RF levetiracetam [Keppra] 500 mg tablet 500 mg PO BID Qty: 60 0RF clopidogrel [Plavix] 75 mg Tablet 75 mg PO DAILY@1100 0RF albuterol sulfate 90 mcg/actuation Hfa Aerosol Inhaler 2 puff INHALATION Q4H PRN (Reason: Shortness Of Breath) 0RF insulin aspart U-100 [Novolog Flexpen U-100 Insulin] 100 unit/mL (3 mL) Insulin Pen 17 unit SUBCUT BEDTIME PRN (Reason: blood sugar) 0RF tamsulosin 0.4 mg capsule 0.4 mg PO BID@1100,2000 0RF fluticasone propionate 50 mcg/actuation [place],Suspension 2 spray INTRANASAL DAILY PRN (Reason: Allergy Symptoms) 0RF amiodarone 200 mg tablet 200 mg PO DAILY Qty: 30 3RF furosemide 40 mg Tablet 40 mg PO BID@08,16 Qty: 60 0RF prednisone 20 mg Tablet 40 mg PO DAILY Qty: 14 0RF isosorbide mononitrate 30 mg Tablet Extended Release 24 Hr 15 mg PO DAILY Qty: 30 0RF doxycycline monohydrate 100 mg Tablet 100 mg PO BID Qty: 10 0RF diltiazem HCl [Cardizem CD] 360 mg capsule,extended release 24hr 360 mg PO DAILY Qty: 30 0RF metoprolol tartrate 25 mg tablet 25 mg PO BID Qty: 60 3RF alprazolam 0.5 mg Tablet 0.5 mg PO Q8H PRN (Reason: Anxiety) Qty: 15 0RF Eliquis 5 mg Tablet 5 mg PO BID@0900,2100 Qty: 180 0RF omeprazole 40 mg Capsule,Delayed Release(Dr/Ec) 40 mg PO DAILY@11 0RF multivitamin with iron-mineral Tablet 1 tab PO DAILY 0RF ipratropium-albuterol 20-100 mcg/actuation Mist 1 puff INHALATION QID PRN (Reason: breathing) 0RF Rx Instructions: space evenly during waking hours Discharge Orders: Transfer Out of Facility (Order); Ordered 04/23/22 Ordered By: Yessica May Referrals: Fer Musa DO [Emergency Department] - Transfer Attestations Time Spent in Transfer Care: greater than 30 min Status at Transfer: Cognitive status at transfer: cognitively intact ; Behavioral status at transfer: cooperative and can be uncooperative ; Quality Metrics Clinical Quality Measures [ Cerebrovascular Accident { Contraindication to Antithrombotic: Medical contraindication; Contraindication to Anticoagulation: Medical contraindication; Contraindication to Statin: None; Statin prescribed; Contraindication to antithrombotic day 2: Medical contraindication; Contraindication to tPA: Did not meet criteria; Reason stroke education not provided: Medical limitations; Rehab services assessed: Other; Reason rehab assessment not done: Other}] Coding Level of Care Code Acute 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
[2022-04-23] MEDS: sodium chloride 3% 500 ML 30 ML IV (13:06)
[2022-04-23] MEDS: FUROsemide 10 mg/mL SDV 4mL 40 MG IVP (13:14)
--- NOTE | 2022-04-23 13:52 | PC.NURSE ---
Dr. May at bedside and spoke with family, Dr May advised this nurse family does not want to transfer patient, family is to make a decision by tomorrow about plan of care, V.O. to continue with 3% saline bmp q6 hrs
[2022-04-23 14:47] LABS: Anion Gap 17.4 (5-19); Blood Urea Nitrogen 66 mg/dL (8-23); Calcium 8.1 mg/dL (8.5-10.5); Carbon Dioxide 25 mmol/L (22-29); Chloride 104 mmol/L (98-107); Glucose 233 mg/dL (65-115); Osmolality Calculated 321 mOsm/kg (285-295); Potassium 4.4 mmol/L (3.5-5.1); Sodium 142 mmol/L (136-145)
[2022-04-23 16:19] LABS: Glucose Point of Care 271 mg/dL (70-110)
[2022-04-23] MEDS: dilTIAZem 5 mg/mL SDV 5 mL 10 MG IVP (17:04)
[2022-04-23] MEDS: digoxin 250 mcg/ml INJ 2 mL IVP (17:18)
--- NOTE | 2022-04-23 17:46 | PC.NURSE ---
This nurse notified Dr. May of HR 140s to 150s HCP put in orders, also notified of 102.2 temp, patient iced
[2022-04-23 18:02] LABS: Anion Gap 16.5 (5-19); Blood Urea Nitrogen 67 mg/dL (8-23); Calcium 8.3 mg/dL (8.5-10.5); Carbon Dioxide 26 mmol/L (22-29); Chloride 106 mmol/L (98-107); Glomerular Filtration Rate 26.1 mL/min (90-130); Glucose 219 mg/dL (65-115); Osmolality Calculated 324 mOsm/kg (285-295); Potassium 4.5 mmol/L (3.5-5.1); Sodium 144 mmol/L (136-145)
[2022-04-23 21:05] LABS: Glucose Point of Care 230 mg/dL (70-110)
[2022-04-23 21:33] LABS: Blood Urea Nitrogen 63 mg/dL (8-23); Calcium 8.3 mg/dL (8.5-10.5); Carbon Dioxide 25 mmol/L (22-29); Chloride 108 mmol/L (98-107); Glomerular Filtration Rate 28.8 mL/min (90-130); Glucose 224 mg/dL (65-115); Osmolality Calculated 325 mOsm/kg (285-295); Sodium 145 mmol/L (136-145)
[2022-04-23 21:37] LABS: Anion Gap 16.8 (5-19); Potassium 4.8 mmol/L (3.5-5.1)
[2022-04-23] MEDS: insulin glargine 100 units/1 mL 10 UNIT SUBCUT (22:06)
[2022-04-24] VITALS (26 sets, daily range): BP systolic 100–186; BP diastolic 65–113; PULSE 127–160; RESP 20–21; TEMP 38.4–38.8; O2SAT 68–96
--- NOTE | 2022-04-24 01:50 | PC.NURSE ---
2330 This RN called to inform [facility] about possible comfort measures and terminal extubation of pt. This RN spoke to felipe and informed about pt status. 0021 Echo from [facility] returned called and this RN answered questions regarding pt. 0131 Echo again called to inform this RN that due to pt still showing neuro signs to call them at [facility] or if neuro status starts declining.
[2022-04-24] MEDS: cefepime 1,000 MG in sodium chloride 0.9% (plus) 50 ML 100 MG IV (02:04)
[2022-04-24] MEDS: acetaminophen 325 mg Tablet 650 MG PO (02:04)
[2022-04-24] MEDS: ipratropium-albuterol 3 mL Neb INHALATION ×2 (03:19→07:37)
[2022-04-24 04:08] LABS: Basophils % 0.1 %; Hematocrit 32.1 % (42.0-52.0); Hemoglobin 9.1 g/dL (11.7-16.6); Lymphocytes # 0.5 10^3/uL (0.8-4.8); Lymphocytes % 4.6 %; Mean Corpuscular HGB Conc 28.3 g/dL (30.0-36.0); Mean Corpuscular Hemoglobin 25.7 pg (28.0-34.0); Mean Corpuscular Volume 90.7 fl (80-94); Mean Platelet Volume 11.4 fL (7.4-10.4); Monocytes # 0.8 10^3/uL (0.2-0.9); Monocytes % 8.3 %; Neutrophils # 8.49 10^3/uL (1.8-7.7); Neutrophils % 85.9 %; Nucleated Red Blood Cells # 0.2 /100WBC; Nucleated Red Blood Cells % 1.8 %; Platelet Count 90 10^3/cmm (130-400); Red Blood Count 3.54 10^6/uL (4.1-5.3); Red Cell Distribution Width 17.1 % (12.1-15.1); White Blood Count 9.9 10^3/uL (4.0-10.0)
[2022-04-24] MEDS: piperacillin-tazobactam 3.375 GM in sodium chloride 0.9% (plus) 50 ML IV (04:27)
[2022-04-24 04:33] LABS: Alanine Aminotransferase 653 U/L (0-41); Albumin Level 3.5 g/dL (3.5-5.2); Alkaline Phosphatase 32 IU/L (40-130); Anion Gap 16.7 (5-19); Aspartate Amino Transferase 100 U/L (0-40); Blood Urea Nitrogen 65 mg/dL (8-23); Calcium 8.4 mg/dL (8.5-10.5); Carbon Dioxide 27 mmol/L (22-29); Chloride 110 mmol/L (98-107); Globulin 2.4 g/dL (1.3-4.6); Glomerular Filtration Rate 27.4 mL/min (90-130); Glucose 217 mg/dL (65-115); Osmolality Calculated 333 mOsm/kg (285-295); Potassium 4.7 mmol/L (3.5-5.1); Sodium 149 mmol/L (136-145); Total Bilirubin 1.1 mg/dL (0.15-1.2); Total Protein 5.9 g/dL (6.6-8.7)
[2022-04-24] MEDS: sodium chloride 3% 500 ML 30 ML IV (05:59)
[2022-04-24 07:35] LABS: Glucose Point of Care 217 mg/dL (70-110)
[2022-04-24] MEDS: amiodarone 200 mg Tablet 400 MG PO (08:01)
[2022-04-24] MEDS: insulin lispro 100 unit/1 mL SUBCUT (08:01)
[2022-04-24] MEDS: pantoprazole DR 40 mg Tablet PO (08:01)
--- NOTE | 2022-04-24 08:37 | PC.NURSE ---
Dr. May at bedside, spoke with family, family chose to terminally extubate. Dr. May gave v.o. for 1 mg IVP Dilaudid x1 dose
[2022-04-24 08:57] LABS: Anion Gap 16.7 (5-19); Blood Urea Nitrogen 65 mg/dL (8-23); Calcium 8.5 mg/dL (8.5-10.5); Carbon Dioxide 26 mmol/L (22-29); Chloride 112 mmol/L (98-107); Glomerular Filtration Rate 26.1 mL/min (90-130); Glucose 201 mg/dL (65-115); Osmolality Calculated 334 mOsm/kg (285-295); Potassium 4.7 mmol/L (3.5-5.1); Sodium 150 mmol/L (136-145)
--- NOTE | 2022-04-24 09:15 | PC.NURSE ---
Patient extubated per RT, all Iv drips and tube feed turned off per v.o. from Dr. May
[2022-04-24] MEDS: HYDROmorphone 1 mg/mL INJ 1 mL IVP (09:18)
--- NOTE | 2022-04-24 10:56 | P.PN_ITS ---
Subjective Subjective: Family has opted for initiation of comfort care this morning Patient was extubated Heart rate in 150s He has comfort care medications on, family is at the bedside Vitals/I&O/Wt Last Vital Signs Temp 102 F H 04/24/22 02:43 Pulse 127 H 04/24/22 09:00 Resp 20 H 04/24/22 07:39 BP 120/98 04/24/22 09:00 Pulse Ox 96 04/24/22 09:00 04/23/22 04/24/22 04/24/22 22:59 06:59 14:59 Intake Total 155 / 205 1520 / 1725 Output Total 1300 / 1300 600 / 1900 Balance -1145 / -1095 920 / -175 Physical Exam Narrative: Patient looks fluid overloaded He was intubated and sedated, later on he was extubated Clinically looks fluid overloaded No meaningful recovery Myoclonus present Nonpurposeful movement of arms Not able to follow commands He has been off sedation for more than 24 hours Urinary Catheter Management: Maciel: Cath Placed During This Visit: yes Reason for Continuing Indwelling Catheter: Accurate Measurement of Urinary Output in Critically Ill Patients Urinary Catheter Date of Insertion: 04/19/22 Urinary Catheter Time of Insertion: 21:00 Data : 04/24/22 03:51 04/24/22 08:00 A&P Assessment and plan (1) Acute CVA (cerebrovascular accident): Status: Acute (2) Hyperglycemia: Status: Acute (3) Metabolic acidosis: Status: Acute (4) Hyperkalemia: Status: Acute (5) Atrial fibrillation: Status: Acute (6) Acute exacerbation of chronic obstructive airways disease: Status: Acute (7) Pneumonia: Status: Acute (8) Sepsis: Status: Acute (9) Acute kidney injury superimposed on chronic kidney disease: Status: Acute (10) Midline shift of brain: Status: Acute Plan After detailed discussion with the family, his significant other decided to pursue comfort measures, his brother is also at the bedside, he was extubated, no meaningful recovery, he has been off sedation more than 24 hours Attestations Medical Necessity Statement*: continue 30mins Coding Level of Care Code 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
--- NOTE | 2022-04-24 11:53 | PC.CHAP ---
Pastoral Care Encounter/Spiritual Assessment Type of Contact [] Declined efficiency clerk visit [] Patient/Family/Request visit [] Outpatient visit [] Follow-up visit [] Physician referral [] Code/Alert [x] Routine visit [] Staff referral [] Actively dying [] Patient sleeping [x] Family support [] [] Out of room [] Palliative care [] [] Receiving care in room [] Pre-surgical visit [] Trauma [] Long length of stay [x] ICU visit [x] Other: removing vent today... praying for Gods will and strength for Relational/Emotional Strength [] Patient feels connected with others/family/visitors/staff [] Distress [] Loneliness/isolation [] Abandonment Spirituality of Patient [] Person of [place] [] Attends Christianity of their [place] [] Believes in Prayer [] Reads Bible or Advent materials [] There are Spiritual issues to be addressed Vehicle Maintenance Technician Interventions [x] Prayer [x] Active listening [x] Non-anxious presence [x] Spiritual/emotional support [] Crisis/trauma care [] Spiritual counseling [] Bereavement support [] Provided bereavement packet [] Provided Bible/devotional materials [] Provided toy/stuffed animal, coloring book to patient or family member [] Provided Communion [] Anointing/Snyder [] Salvation [x] Completed spiritual assessment [] Other: Impact on Illness or Injury [] Angry [] Fearful [] Anxious [] Often cries [] Exhaustion [] Unable to work [] Unable to attend jew [] Unable to walk/stand [] Unable to read [] Unable to drive [] Unable to eat/drink [] Unable to sleep [] Unable to be with family [] Patient intubated [] Other: Summary Time spent with patient
[2022-04-24 15:57] LABS: Osmolality Serum 328 mOsm/kg (278-305)
--- NOTE | 2022-04-24 16:59 | PC.SOCIAL ---
IMM UPDATED IMM dated and initialed and copy placed in pts room
--- NOTE | 2022-04-24 22:16 | P.DES_ITS ---
Discharge Providers DDS Date of Admission: 04/19/22 22:07 Date Summary Completed: 04/24/22 Attending Provider at Admission: Jian Villalta MD Time of : 21:55 Attending Provider at Discharge: Yessica May MD Pronouncing Clinician: Naif WALLACE Diagnoses Hospital Diagnoses (1) Acute CVA (cerebrovascular accident): (2) Hyperglycemia: (3) Metabolic acidosis: (4) Hyperkalemia: (5) Atrial fibrillation: (6) Acute exacerbation of chronic obstructive airways disease: (7) Pneumonia: (8) Sepsis: (9) Acute kidney injury superimposed on chronic kidney disease: (10) Midline shift of brain: Reason for Visit Reason for Visit RESP DISTRESS Summary Date and Time of Date of : 04/24/22 Time of : 21:55 Summary Summary: 66-year-old male with multiple comorbidities who presented with shortness of breath, found to have pneumonia and septic shock. Hospital course was complicated by PEA cardiac arrest and respiratory failure requiring intubation and mechanical ventilation. Hospital course was further complicated by severe metabolic acidosis, hyperkalemia, acute kidney injury on chronic kidney disease and hyperglycemia. He was found to have a left-sided nonocclusive DVT treated with heparin drip. Hospital course further complicated by atrial fibrillation with rapid ventricular rate. Head CT revealed large acute or subacute infarct involving essentially the entire right middle cerebral artery distribution. Family reported declined transfer to [facility] for decompressive craniotomy transition to comfort care measures. Asked to evaluate patient by RN. Patient examined, found to have no respiratory effort, no palpable carotid pulse, no audible heart sounds, and fixed pupils. Patient . Time of is 2154 on 04/24/2022. Additional Data Advance directives?: No Discharge Plan Discharge Patient Disposition: Prescriptions: No Action Stiolto Respimat 2.5-2.5 mcg/actuation mist 2 puff inhalation DAILY Qty: 4 3RF escitalopram oxalate 10 mg Tablet 5 mg PO DAILY Qty: 30 0RF atorvastatin 80 mg Tablet 80 mg PO QPM 0RF ferrous sulfate 325 mg (65 mg iron) Tablet 325 mg PO DAILY@1100 0RF cholecalciferol (vitamin D3) 2,000 unit Tablet 2,000 unit PO DAILY@1100 0RF pentoxifylline 400 mg tablet extended release 400 mg PO BID 0RF senna 8.6 mg Capsule 8.6 mg PO DAILY PRN (Reason: Constipation) 0RF levetiracetam [Keppra] 500 mg tablet 500 mg PO BID Qty: 60 0RF clopidogrel [Plavix] 75 mg Tablet 75 mg PO DAILY@1100 0RF albuterol sulfate 90 mcg/actuation Hfa Aerosol Inhaler 2 puff INHALATION Q4H PRN (Reason: Shortness Of Breath) 0RF insulin aspart U-100 [Novolog Flexpen U-100 Insulin] 100 unit/mL (3 mL) Insulin Pen 17 unit SUBCUT BEDTIME PRN (Reason: blood sugar) 0RF tamsulosin 0.4 mg capsule 0.4 mg PO BID@1100,2000 0RF fluticasone propionate 50 mcg/actuation [place],Suspension 2 spray INTRANASAL DAILY PRN (Reason: Allergy Symptoms) 0RF amiodarone 200 mg tablet 200 mg PO DAILY Qty: 30 3RF furosemide 40 mg Tablet 40 mg PO BID@08,16 Qty: 60 0RF prednisone 20 mg Tablet 40 mg PO DAILY Qty: 14 0RF isosorbide mononitrate 30 mg Tablet Extended Release 24 Hr 15 mg PO DAILY Qty: 30 0RF doxycycline monohydrate 100 mg Tablet 100 mg PO BID Qty: 10 0RF diltiazem HCl [Cardizem CD] 360 mg capsule,extended release 24hr 360 mg PO DAILY Qty: 30 0RF metoprolol tartrate 25 mg tablet 25 mg PO BID Qty: 60 3RF alprazolam 0.5 mg Tablet 0.5 mg PO Q8H PRN (Reason: Anxiety) Qty: 15 0RF Eliquis 5 mg Tablet 5 mg PO BID@0900,2100 Qty: 180 0RF omeprazole 40 mg Capsule,Delayed Release(Dr/Ec) 40 mg PO DAILY@11 0RF multivitamin with iron-mineral Tablet 1 tab PO DAILY 0RF ipratropium-albuterol 20-100 mcg/actuation Mist 1 puff INHALATION QID PRN (Reason: breathing) 0RF Rx Instructions: space evenly during waking hours Discharge Orders: Transfer Out of Facility (Order); Ordered 04/23/22 Ordered By: Yessica May Referrals: Fer Musa DO [Emergency Department] - Probable Cause of Probable cause of : Stroke of unknown etiology DS Attestations Time Spent in /Discharge Care*: greater than 30 min Quality - AMI: AMI present?: No Quality - Stroke: CVA present?: Yes Quality - VTE: VTE present?: Yes Coding Level of Care Code Acute [employer] Diagnoses Acute CVA (cerebrovascular accident) I63.9 Hyperglycemia R73.9 Metabolic acidosis E87.2 Hyperkalemia E87.5 Atrial fibrillation I48.91 Acute exacerbation of chronic obstructive airways disease J44.1 Pneumonia J18.9 Sepsis A41.9 Acute kidney injury superimposed on chronic kidney disease N17.9; N18.9 Midline shift of brain R90.89
--- NOTE | 2022-04-24 22:30 | PC.NURSE ---
Patient 2154. Life partner at bedside. Physician, powerhouse helper, and pastoral care notified. MTS called 0 by powerhouse helper.
--- NOTE | 2022-04-24 22:44 | PC.NURSE ---
Yenny Espinoza, patient's life partner, gave a phone number for patients mother, Tabitha Brown. [phone]
--- NOTE | 2022-04-25 01:04 | PC.NURSE ---
Addendum entered by Don Morales RN 04/25/22 01:07: Witnessed waste Original Note: Versed wasted. 65ml Witnessed by second nurse Don RICHARDS.
--- NOTE | 2022-04-25 01:06 | PC.NURSE ---
MTS called back [phone]. Patient is not a candidate for transplant or saving site. Patient is released for transport.
[2022-04-25 01:08] VITALS: BP 110/65; PULSE 156; O2SAT 80
--- NOTE | 2022-04-25 01:12 | PC.NURSE ---
All lines removed. Post-mortem care performed. [place] [facility]
== END 2022-04-24 23:35 | disposition expired | DRG 871 ==
LOC: ER 22:07 → ICU 23:10
PROVIDERS: Family Medicine; Admitting Provider Internal Medicine; Emergency Provider Emergency Medicine; Visit Provider Internal Medicine
DX: A41.9 Sepsis, unspecified organism (principal); R65.21 Severe sepsis with septic shock; J18.9 Pneumonia, unspecified organism; I50.33 Acute on chronic diastolic (congestive) heart failure; J96.20 Acute and chronic respiratory failure, unspecified whether with hypoxia or hypercapnia; K72.00 Acute and subacute hepatic failure without coma; I63.9 Cerebral infarction, unspecified; G93.6 Cerebral edema; J44.1 Chronic obstructive pulmonary disease with (acute) exacerbation; J44.0 Chronic obstructive pulmonary disease with (acute) lower respiratory infection; I13.0 Hypertensive heart and chronic kidney disease with heart failure and stage 1 through stage 4 chronic kidney disease, or unspecified chronic kidney disease; I82.812 Embolism and thrombosis of superficial veins of left lower extremity; N17.9 Acute kidney failure, unspecified; I46.9 Cardiac arrest, cause unspecified; E11.22 Type 2 diabetes mellitus with diabetic chronic kidney disease; N18.30 Chronic kidney disease, stage 3 unspecified; E11.65 Type 2 diabetes mellitus with hyperglycemia; E11.51 Type 2 diabetes mellitus with diabetic peripheral angiopathy without gangrene; I08.0 Rheumatic disorders of both mitral and aortic valves; I48.91 Unspecified atrial fibrillation; N40.0 Benign prostatic hyperplasia without lower urinary tract symptoms; I25.10 Atherosclerotic heart disease of native coronary artery without angina pectoris; Z86.718 Personal history of other venous thrombosis and embolism; E66.9 Obesity, unspecified; Z68.30 Body mass index [BMI] 30.0-30.9, adult; Z89.612 Acquired absence of left leg above knee; Z87.891 Personal history of nicotine dependence; D69.6 Thrombocytopenia, unspecified; E87.5 Hyperkalemia; B19.20 Unspecified viral hepatitis C without hepatic coma; I95.9 Hypotension, unspecified; Z51.5 Encounter for palliative care; G25.3 Myoclonus
CPT/HCPCS: 36415; 36416; 36600; 51702; 70450; 71045; 71250; 74176; 80048; 80051; 80053; 81001; 82009; 82330; 82803; 82805; 82962; 83605; 83735; 83880; 83930; 84145; 84484; 85007; 85025; 85378; 85730; 87040; 87070; 87205; 87641; 93005; 93306; 93970; 94002; 94003; 94640; 94660; 94799; 96365; 96367; 96372; 96375; 99291; C9113; J0171; J0282; J0330; J0456; J0610; J0692; J0696; J1160; J1170; J1644; J1720; J1815 ×2; J1940; J1953; J1956; J2060; J2250; J2370; J2405; J2543; J2930; J3010; J3370; J3490; J7030; J7040; J7050; J7060; J7131; J7799